=== PATIENT | female | born 1965 | race African-American/Black ===

== ENCOUNTER 2020-03-19 12:05 | Outpatient (REF) | payer MEDICARE, MEDICAID, SELFPAY ==
[2020-03-19 13:25] LABS: MANUAL DIFF FLAG NO
[2020-03-19 13:32] LABS: Hematocrit 38.3 % (37-47); Hemoglobin 12.6 g/dl (12.0-16.0); Imm Gran Abs Auto 0.01 X10*3/uL (0.00-0.03); Imm Gran Pct Auto 0.3 % (0.0-0.4); Lymphocytes Percent Auto 25.4 % (20-40); Mean Corpuscular HGB Conc 32.9 g/dl (31.0-35.0); Mean Corpuscular Hemoglobin 29.8 pg (27.0-33.0); Mean Corpuscular Volume 90.5 fL (80-98); Mean Platelet Volume 9.9 fL (9.4-12.3); Monocytes Absolute Auto 0.1 X10*3/uL (0.1-1.2); Monocytes Percent Auto 3.5 % (2-11); Neutrophils Absolute Auto 2.8 X10*3/uL (2.0-8.3); Neutrophils Percent Auto 70.8 % (45-73); Platelet Count 207 X10*3/uL (160-400); Red Blood Count 4.23 X10*6/uL (4.20-5.50); Red Cell Distribution Width 17.1 % (11.0-16.0)
[2020-03-19 13:57] LABS: Alanine Aminotransferase 11 U/L (0-31); Alkaline Phosphatase 73 U/L (39-117); Anion Gap 14 (12-20); Aspartate Amino Transferase 16 U/L (5-31); Bilirubin Total 0.5 mg/dL (0.0-1.0); Blood Urea Nitrogen 7 mg/dL (9-16); C Reactive Protein 2.45 mg/dL (< or = 0.50); Calcium 9.1 mg/dL (8.4-10.2); Carbon Dioxide 22 mmol/L (22-29); Chloride 108 mmol/L (96-108); Estimated Glomerular Filt Rate 59; Glucose Random 96 mg/dL (60-115); Potassium 4.5 mmol/l (3.3-5.1); Sodium 139 mmol/L (135-145); Total Protein 7.8 g/dL (6.5-8.0)
[2020-03-19 14:00] LABS: Glucose Urine UA NEG (NEG); Leukocyte Esterase Urine NEG (NEG); Nitrite Urine NEG (NEG); Specific Gravity - Urine 1.025 (1.005-1.025); Urine Blood NEG (NEG); Urine Ketones NEG (NEG); Urine Protein NEG (NEG-TRACE)
[2020-03-19 14:02] LABS: Appearance Urine HAZY; Color Urine YELLOW
[2020-03-19 14:16] LABS: RBC Urine 0 /HPF (0); Squamous Epithelial Cell Urine 2+ /LPF; WBC Urine 0 /HPF (0-4)
[2020-03-19 14:25] LABS: Erythrocyte Sedimentation Rate 43 MM/HR (0-20)
[2020-03-20 13:57] LABS: Anti DNA DS Antibody 83 IU/mL
[2020-03-22 15:02] LABS: Complement C3 112 mg/dL (83-193)
== END 2020-03-19 12:06 | disposition home or self-care (01) ==
LOC: HO.LAB 12:05
PROVIDERS: PCP Family Medicine; Referring Provider Family Medicine; Visit Provider Student in an Organized Health Care Education/Training Program
DX: M32.9 Systemic lupus erythematosus, unspecified (principal); J45.909 Unspecified asthma, uncomplicated; G47.33 Obstructive sleep apnea (adult) (pediatric); F17.200 Nicotine dependence, unspecified, uncomplicated
CPT/HCPCS: 36415; 80053; 81001; 85025; 85652; 86140; 86160; 86225; 99213

== ENCOUNTER → 2020-06-18 13:00 | Outpatient (BNVA) | payer MEDICARE, MEDICAID, SELFPAY | PROVIDERS: PCP Family Medicine; Visit Provider Student in an Organized Health Care Education/Training Program | DX: M32.8 Other forms of systemic lupus erythematosus (principal) | CPT/HCPCS: Q3014 ==

== ENCOUNTER → 2020-06-28 09:57 | Outpatient (BNVA) | payer MEDICARE, MEDICAID, SELFPAY | PROVIDERS: PCP Family Medicine; Visit Provider Internal Medicine | DX: J44.9 Chronic obstructive pulmonary disease, unspecified (principal); F17.200 Nicotine dependence, unspecified, uncomplicated | CPT/HCPCS: 99212 ==

== ENCOUNTER → 2020-06-29 10:34 | Outpatient (BNVA) | payer MEDICARE, MEDICAID, SELFPAY | PROVIDERS: PCP Family Medicine; Visit Provider Nurse Practitioner Family | DX: G47.33 Obstructive sleep apnea (adult) (pediatric) (principal) | CPT/HCPCS: Q3014 ==

== ENCOUNTER 2020-09-14 10:58 | Outpatient (REF) | payer MEDICARE, MEDICAID, SELFPAY ==
--- NOTE | ~2020-09-14 | XR_ITS ---
EXAMINATION: XR BILATERAL HANDS CLINICAL INFORMATION: Shortness of breath. COMPARISON: None. TECHNIQUE: 3 views each hand. FINDINGS: Left Hand: There is a geographic sclerotic marginated lesion 1st metatarsal head, question infarct. No additional lesions seen. There is mild joint space narrowing involving the PIP, DIP and MCP joints. Minimal periapical spurring PIP joint 1st digit. Right Hand: There is mild loss of PIP, DIP and MCP joint space. No bony erosive changes. There is mild periarticular spurring PIP joint 1st digit. XR/XR hand RT min 3V IMPRESSION: Loss of PIP, DIP and MCP joint space. There is mild periarticular spurring PIP joint first digit both hands. There is a small lesion with sclerotic margins along the 2nd metatarsal head left hand. Question chronic infarct.
--- NOTE | ~2020-09-14 | XR_ITS ---
EXAMINATION: XR BILATERAL HANDS CLINICAL INFORMATION: Shortness of breath. COMPARISON: None. TECHNIQUE: 3 views each hand. FINDINGS: Left Hand: There is a geographic sclerotic marginated lesion 1st metatarsal head, question infarct. No additional lesions seen. There is mild joint space narrowing involving the PIP, DIP and MCP joints. Minimal periapical spurring PIP joint 1st digit. Right Hand: There is mild loss of PIP, DIP and MCP joint space. No bony erosive changes. There is mild periarticular spurring PIP joint 1st digit. XR/XR hand LT min 3V IMPRESSION: Loss of PIP, DIP and MCP joint space. There is mild periarticular spurring PIP joint first digit both hands. There is a small lesion with sclerotic margins along the 2nd metatarsal head left hand. Question chronic infarct.
[2020-09-14 12:13] LABS: Glucose Urine UA NEG (NEG); Leukocyte Esterase Urine NEG (NEG); Nitrite Urine NEG (NEG); Specific Gravity - Urine 1.025 (1.005-1.025); Urine Blood TRACE (NEG); Urine Ketones NEG (NEG); Urine Protein NEG (NEG-TRACE)
[2020-09-14 12:14] LABS: Appearance Urine CLEAR; Color Urine YELLOW
[2020-09-14 12:17] LABS: MANUAL DIFF FLAG NO
[2020-09-14 12:24] LABS: Basophils Percent Auto 0.2 % (0-2); Eosinophils Percent Auto 0.2 % (0-4); Hematocrit 36.8 % (37-47); Hemoglobin 11.9 g/dl (12.0-16.0); Imm Gran Abs Auto 0.01 X10*3/uL (0.00-0.03); Imm Gran Pct Auto 0.2 % (0.0-0.4); Lymphocytes Absolute Auto 1.6 X10*3/uL (1.2-4.9); Mean Corpuscular HGB Conc 32.3 g/dl (31.0-35.0); Mean Corpuscular Hemoglobin 29.1 pg (27.0-33.0); Mean Platelet Volume 9.8 fL (9.4-12.3); Monocytes Absolute Auto 0.2 X10*3/uL (0.1-1.2); Neutrophils Absolute Auto 2.2 X10*3/uL (2.0-8.3); Neutrophils Percent Auto 54.4 % (45-73); Platelet Count 202 X10*3/uL (160-400); Red Blood Count 4.09 X10*6/uL (4.20-5.50); Red Cell Distribution Width 17.9 % (11.0-16.0)
[2020-09-14 12:26] LABS: RBC Urine 0-2 /HPF (0); Squamous Epithelial Cell Urine 1+ /LPF; WBC Urine 0 /HPF (0-4)
[2020-09-14 12:49] LABS: Alanine Aminotransferase 10 U/L (0-31); Albumin Level 3.9 g/dL (3.5-5.0); Alkaline Phosphatase 68 U/L (39-117); Anion Gap 13 (12-20); Aspartate Amino Transferase 15 U/L (5-31); Bilirubin Total 0.6 mg/dL (0.0-1.0); Blood Urea Nitrogen 10 mg/dL (9-16); C Reactive Protein 2.55 mg/dL (< or = 0.50); Calcium 9.3 mg/dL (8.4-10.2); Carbon Dioxide 24 mmol/L (22-29); Chloride 111 mmol/L (96-108); Estimated Glomerular Filt Rate 49; Glucose Random 86 mg/dL (60-115); Potassium 4.2 mmol/L (3.3-5.1); Sodium 144 mmol/L (135-145); Total Protein 7.7 g/dL (6.5-8.0)
[2020-09-14 13:06] LABS: Erythrocyte Sedimentation Rate 34 MM/HR (0-20)
[2020-09-15 14:22] LABS: Anti DNA DS Antibody 105 IU/mL
[2020-09-15 15:11] LABS: Complement C3 99 mg/dL (83-193)
== END 2020-09-14 10:59 | disposition home or self-care (01) ==
LOC: HO.LAB 10:58
PROVIDERS: PCP Family Medicine; Visit Provider Student in an Organized Health Care Education/Training Program
DX: M32.8 Other forms of systemic lupus erythematosus (principal); Z79.899 Other long term (current) drug therapy
CPT/HCPCS: 36415; 73130; 80053; 81001; 85025; 85652; 86140; 86160; 86225; 99212

== ENCOUNTER 2020-11-12 06:35 | Outpatient (REF) | payer MEDICARE, MEDICAID, SELFPAY ==
[2020-11-12 07:45] LABS: Hemoglobin 12.7 g/dl (12.0-16.0); Mean Corpuscular HGB Conc 32.6 g/dl (31.0-35.0); Mean Corpuscular Hemoglobin 29.8 pg (27.0-33.0); Mean Corpuscular Volume 91.5 fL (80-98); Mean Platelet Volume 9.9 fL (9.4-12.3); Platelet Count 194 X10*3/uL (160-400); Red Blood Count 4.26 X10*6/uL (4.20-5.50); Red Cell Distribution Width 17.8 % (11.0-16.0)
[2020-11-12 08:07] LABS: Alanine Aminotransferase 7 U/L (0-31); Albumin Level 4.2 g/dL (3.5-5.0); Alkaline Phosphatase 73 U/L (39-117); Anion Gap 13 (12-20); Aspartate Amino Transferase 19 U/L (5-31); Bilirubin Total 0.7 mg/dL (0.0-1.0); Blood Urea Nitrogen 8 mg/dL (9-16); Calcium 9.1 mg/dL (8.4-10.2); Carbon Dioxide 24 mmol/L (22-29); Chloride 109 mmol/L (96-108); Cholesterol 201 mg/dL; Estimated Glomerular Filt Rate > 60; Glucose Random 84 mg/dL (60-115); HDL Cholesterol 37 mg/dL; LDL Cholesterol Calculated 140 mg/dl; Potassium 4.3 mmol/L (3.3-5.1); Sodium 142 mmol/L (135-145); Total Protein 8.2 g/dL (6.5-8.0); Triglycerides 121 mg/dL
[2020-11-12 08:29] LABS: Ferritin 91 ng/mL (10-250); Thyroid Stimulating Hormone 1.76 uIU/mL (0.32-4.0); Vitamin D 25-OH Total 12.7 ng/mL (>30)
[2020-11-12 08:50] LABS: Glucose Urine UA NEG (NEG); Leukocyte Esterase Urine NEG (NEG); Nitrite Urine NEG (NEG); Specific Gravity - Urine >= 1.030 (1.005-1.025); Urine Blood NEG (NEG); Urine Ketones NEG (NEG); Urine Protein NEG (NEG-TRACE)
[2020-11-12 08:52] LABS: Appearance Urine CLEAR; Color Urine STRAW
[2020-11-12 08:54] LABS: Vitamin B12 908 pg/mL (200-900)
[2020-11-12 09:09] LABS: RBC Urine 0 /HPF (0); WBC Urine 0-2 /HPF (0-4)
[2020-11-12 09:10] LABS: Bacteria Urine 1+ /LPF; Mucus Urine 1+ /LPF; Squamous Epithelial Cell Urine 2+ /LPF
== END 2020-11-12 06:36 | disposition home or self-care (01) ==
LOC: HO.LAB 06:35
PROVIDERS: Absent Provider Student in an Organized Health Care Education/Training Program; PCP Family Medicine; Visit Provider Family Medicine
DX: E78.5 Hyperlipidemia, unspecified (principal); J44.9 Chronic obstructive pulmonary disease, unspecified; M32.9 Systemic lupus erythematosus, unspecified; I10 Essential (primary) hypertension; F17.200 Nicotine dependence, unspecified, uncomplicated
CPT/HCPCS: 36415; 80053; 80061; 81001; 82306; 82607; 82728; 84443; 85027

== ENCOUNTER → 2020-12-16 09:49 | Outpatient (BNVA) | payer MEDICARE, MEDICAID, SELFPAY | PROVIDERS: PCP Family Medicine; Visit Provider Student in an Organized Health Care Education/Training Program | DX: M32.8 Other forms of systemic lupus erythematosus (principal) | CPT/HCPCS: 99212 ==

== ENCOUNTER → 2020-12-28 10:25 | Outpatient (BNVA) | payer MEDICARE, MEDICAID, SELFPAY | PROVIDERS: PCP Family Medicine; Visit Provider Nurse Practitioner Family | CPT/HCPCS: Q3014 ==

== ENCOUNTER 2020-12-29 06:13 | Outpatient (REF) | payer MEDICARE, MEDICAID, SELFPAY ==
[2020-12-29 07:02] LABS: MANUAL DIFF FLAG NO
[2020-12-29 07:05] LABS: Eosinophils Percent Auto 1.1 % (0-4); Hematocrit 36.7 % (37-47); Hemoglobin 11.9 g/dl (12.0-16.0); Imm Gran Abs Auto 0.02 X10*3/uL (0.00-0.03); Imm Gran Pct Auto 0.6 % (0.0-0.4); Lymphocytes Absolute Auto 1.1 X10*3/uL (1.2-4.9); Lymphocytes Percent Auto 29.5 % (20-40); Mean Corpuscular HGB Conc 32.4 g/dl (31.0-35.0); Mean Corpuscular Volume 89.3 fL (80-98); Mean Platelet Volume 9.6 fL (9.4-12.3); Monocytes Absolute Auto 0.2 X10*3/uL (0.1-1.2); Monocytes Percent Auto 5.6 % (2-11); Neutrophils Absolute Auto 2.3 X10*3/uL (2.0-8.3); Neutrophils Percent Auto 63.2 % (45-73); Platelet Count 215 X10*3/uL (160-400); Red Blood Count 4.11 X10*6/uL (4.20-5.50); Red Cell Distribution Width 17.1 % (11.0-16.0); White Blood Count 3.6 X10*3/uL (4.8-10.8)
[2020-12-29 07:43] LABS: Alanine Aminotransferase 7 U/L (0-31); Alkaline Phosphatase 73 U/L (39-117); Anion Gap 14 (12-20); Aspartate Amino Transferase 19 U/L (5-31); Bilirubin Total 0.4 mg/dL (0.0-1.0); Blood Urea Nitrogen 13 mg/dL (9-16); C Reactive Protein 2.93 mg/dL (< or = 0.50); Calcium 9.5 mg/dL (8.4-10.2); Carbon Dioxide 22 mmol/L (22-29); Chloride 108 mmol/L (96-108); Estimated Glomerular Filt Rate 54; Glucose Random 82 mg/dL (60-115); Potassium 4.4 mmol/L (3.3-5.1); Sodium 140 mmol/L (135-145); Total Protein 8.1 g/dL (6.5-8.0)
[2020-12-29 07:57] LABS: Erythrocyte Sedimentation Rate 51 MM/HR (0-20)
[2020-12-29 08:32] LABS: Glucose Urine UA NEG (NEG); Leukocyte Esterase Urine NEG (NEG); Nitrite Urine NEG (NEG); Specific Gravity - Urine 1.025 (1.005-1.025); Urine Blood NEG (NEG); Urine Ketones NEG (NEG); Urine Protein NEG (NEG-TRACE)
[2020-12-29 08:35] LABS: Appearance Urine CLEAR; Color Urine YELLOW
[2020-12-29 08:45] LABS: Bacteria Urine TRACE /LPF; RBC Urine 0 /HPF (0); Renal Epithelial Cells Urine TRACE /LPF; Squamous Epithelial Cell Urine TRACE /LPF
[2020-12-30 11:46] LABS: Complement C3 80 mg/dL (83-193)
[2020-12-31 14:06] LABS: Anti DNA DS Antibody 111 IU/mL
== END 2020-12-29 06:14 | disposition home or self-care (01) ==
LOC: HO.LAB 06:13
PROVIDERS: PCP Family Medicine; Visit Provider Student in an Organized Health Care Education/Training Program
DX: M32.8 Other forms of systemic lupus erythematosus (principal)
CPT/HCPCS: 36415; 80053; 81001; 85025; 85652; 86140; 86160; 86225

== ENCOUNTER → 2021-04-19 09:24 | Outpatient (BNVA) | payer MEDICARE, MEDICAID, SELFPAY | PROVIDERS: PCP Family Medicine; Referring Provider Family Medicine; Visit Provider Nurse Practitioner Family | CPT/HCPCS: Q3014 ==

== ENCOUNTER 2021-09-25 08:43 | Emergency (ER) | payer MEDICARE, MEDICAID, SELFPAY ==
--- NOTE | ~2021-09-25 | XR_ITS ---
EXAMINATION: XR CHEST CLINICAL INFORMATION: Cough COMPARISON: Previous chest x-ray most recent August 2019 TECHNIQUE: Frontal view of the chest was obtained. FINDINGS: The cardiac silhouette is enlarged but stable. Hilar and mediastinal contours are unremarkable. The lungs are clear. There is blunting at the right lateral costophrenic angle questionable for a small right pleural effusion. There is no left pleural effusion. There is no pneumothorax. XR/XR chest 1V IMPRESSION: Stable enlargement of the cardiac silhouette. Question small right pleural effusion.
[2021-09-25 08:51] VITALS: BP 136/74; PULSE 73; RESP 19; TEMP 36.4; O2SAT 95; BMI 31.6
--- NOTE | 2021-09-25 08:54 | ECG_ITS ---
Test Reason : sob Blood Pressure : / mmHG Vent. Rate : 055 BPM Atrial Rate : 055 BPM P-R Int : 120 ms QRS Dur : 080 ms QT Int : 428 ms P-R-T Axes : 000 039 101 degrees QTc Int : 409 ms Sinus bradycardia T wave abnormality, consider anterior ischemia Nonspecific ST and T wave abnormality Abnormal ECG When compared with ECG of 22-JUN-2019 21:10, Vent. rate has decreased BY 73 BPM Nonspecific T wave abnormality, worse in Inferior leads T wave inversion now evident in Anterior leads Referred By: Gonzalo Welch Electronically Signed By:ALEXYS MARTINEZ
--- NOTE | 2021-09-25 08:57 | ED.SOB ---
HPI - SOB/Dyspnea General Chief Complaint: Dyspnea Stated Complaint: DIFF BREATHING LOW 80'S ON RA PER EMS Time Seen by Provider: 09/25/21 08:54 Source: patient Mode of arrival: ambulatory Limitations: no limitations History of Present Illness HPI Narrative: This is a 56 years old female presented to the ED with a chief complaint of shortness of breath, she has a history of COPD not on oxygen, she is a chronic smoker, she has also has a history of SLE. She denies any fever chills she states that she has been short of breath for about a week. MD elicited complaint: shortness of breath Pertinent past history: COPD Onset (ago): week(s) (1) Timing: constant Severity: moderate Exacerbating factors: nothing Relieving factors: nothing Known history of: COPD Associated symptoms: denies other symptoms Related Data Home Medications Medication Instructions Recorded Confirmed albuterol sulfate 90 mcg/actuation 2 puff INHALATION Q4-6H PRN 03/19/20 04/19/21 aerosol inhaler aspirin 81 mg tablet,delayed 81 mg PO DAILY 03/19/20 04/19/21 release (Adult Low Dose Aspirin) fluticasone furoate 200 1 inh INHALATION DAILY 03/19/20 04/19/21 mcg-vilanterol 25 mcg/dose inhalation powder (Breo Ellipta) hydroxychloroquine 200 mg tablet 200 mg PO BID 03/19/20 04/19/21 (Plaquenil) ibuprofen 800 mg tablet 800 mg PO TID PRN 03/19/20 04/19/21 oxycodone-acetaminophen 5 mg-325 1 tab PO DAILY PRN tab 03/19/20 04/19/21 mg tablet (Percocet) Previous Rx's Medication Instructions Recorded prednisone 5 mg tablet 5 mg PO DAILY PRN #90 tab 12/16/20 gabapentin 100 mg capsule See Rx Instructions PO BEDTIME #90 04/19/21 cap Allergies Allergy/AdvReac Type Severity Reaction Status Date / Time No Known Allergies Allergy Verified 12/28/20 10:26 Review of Systems Review of Systems: Yes all other systems are reviewed and are negative Constitutional: Constitutional: Denies fever(s) Cardiovascular: Cardiovascular: Reports no additional cardiovascular complaints Respiratory: Respiratory: Reports no additional respiratory complaints Gastrointestinal: Gastrointestinal: Denies diarrhea, Denies nausea and Denies vomiting Neurologic: Reports Abnormal speech present [facility] Past Medical History Medical History Asthma COPD (chronic obstructive pulmonary disease) Obstructive sleep apnea Smoker Systemic lupus erythematosus Family History Family History Mother Breast cancer Social History Social History Household Members: Significant Other Housing: Apartment Alcohol intake: current Alcohol intake frequency: a few times a month Alcohol type: hard liquor Patient Tobacco Use Status: Current everyday Tobacco user Cigarettes Per Day: 6 Years Smoked: since age 15 Use of substances other than those prescribed or required for medical reasons: Unknown Advance Directives: No Advance Directives Information Provided: No Current occupational status: disabled Physical Exam Vital Signs: Vital Signs: Last Vital Signs Temp 97.6 F 09/25/21 08:51 Pulse 57 09/25/21 10:01 Resp 20 09/25/21 10:01 BP 136/74 09/25/21 08:51 Pulse Ox 95 09/25/21 08:51 BMI result Body Mass Index 31.6 Const: General: cooperative Orientation/consciousness: patient oriented x3 HEENT: Head: Yes normal to inspection Face and sinus: Yes normal facial exam Mouth: Normal oral and palatal mucosa present Neck: Neck: Yes normal visual inspection Chest: Chest palpation & inspection: normal inspection of the chest Resp: Auscultation: rhonchi Cardio: Jugular venous distension: no JVD Rate: regular rate Rhythm: regular rhythm GI: Inspection: Yes normal to inspection Palpation (GI): Soft to palpation, not firm, nontender and no guarding Skin: General skin exam: no rashes or lesions noted, elasticity normal and turgor normal Rashes: no rashes Neuro: General: patient oriented x3 Cranial nerves: Yes CN's II-XII intact bilaterally Speech: Abnormal speech present Course Reevaluation(s) Reevaluation #1: pt eloped MDM - SOB/Dyspnea Lab Data Result diagrams: 09/25/21 09:38 09/25/21 09:38 Labs: Lab Results 09/25/21 09/25/21 09/25/21 Range/Units 09:38 09:38 09:38 WBC 5.2 (4.8-10.8) X10*3/uL RBC 4.30 (4.20-5.50) X10*6/uL Hgb 12.4 (12.0-16.0) g/dl Hct 38.3 (37.0-47.0) % MCV 89.1 (80.0-98.0) fL MCH 28.8 (27.0-33.0) pg MCHC 32.4 (31.0-35.0) g/dl RDW 18.1 H (11.0-16.0) % Plt Count 192 (160-400) X10*3/uL MPV 9.6 (9.4-12.3) fL Immature Gran % (Auto) 0.2 (0.0-0.4) % Neut % (Auto) 77.8 H (45-73) % Lymph % (Auto) 19.3 L (20-40) % [place] % (Auto) 2.5 (2-11) % Eos % (Auto) 0.2 (0-4) % Baso % (Auto) 0.0 (0-2) % Lymph # (Auto) 1.0 L (1.2-4.9) X10*3/uL [place] # (Auto) 0.1 (0.1-1.2) X10*3/uL Eos # (Auto) 0.0 (0.0-0.4) X10*3/uL Baso # (Auto) 0.0 (0.0-0.2) X10*3/uL Abs Immat Gran (auto) 0.01 (0.00-0.03) X10*3/uL Absolute Neuts (auto) 4.0 (2.0-8.3) x10*3/uL Absolute Nucleated RBC 0.000 (0.0-0.012) X10*3/uL Nucleated RBC % (auto) 0.0 (0.0-0.2) /100WBC Sodium 139 (135-145) mmol/L Potassium 4.5 (3.3-5.1) mmol/L Chloride 109 H (96-108) mmol/L Carbon Dioxide 23 (22-29) mmol/L Anion Gap 12 (12-20) BUN 11 (9-16) mg/dL Creatinine 0.79 (0.5-1.4) mg/dL Estim Creat Clear Calc 78.0 Estimated GFR > 60 Random Glucose 96 (60-115) mg/dL Calcium 8.8 D (8.4-10.2) mg/dL Total Bilirubin 0.6 (0.0-1.0) mg/dL AST 21 (5-31) U/L ALT 15 (0-31) U/L Alkaline Phosphatase 62 (39-117) U/L Troponin I High Sens < 3.5 (<3.5-17.0) ng/L B-Natriuretic Peptide 13 (<100) pg/mL Total Protein 7.8 (6.5-8.0) g/dL Albumin 3.7 (3.5-5.0) g/dL Influenza Type A (PCR) (Negative) Influenza Type B (PCR) (Negative) RSV RNA Qual (PCR) (Negative) SARS-CoV-2 RNA (RT-PCR) (Negative) 09/25/21 Range/Units 10:45 WBC (4.8-10.8) X10*3/uL RBC (4.20-5.50) X10*6/uL Hgb (12.0-16.0) g/dl Hct (37.0-47.0) % MCV (80.0-98.0) fL MCH (27.0-33.0) pg MCHC (31.0-35.0) g/dl RDW (11.0-16.0) % Plt Count (160-400) X10*3/uL MPV (9.4-12.3) fL Immature Gran % (Auto) (0.0-0.4) % Neut % (Auto) (45-73) % Lymph % (Auto) (20-40) % [place] % (Auto) (2-11) % Eos % (Auto) (0-4) % Baso % (Auto) (0-2) % Lymph # (Auto) (1.2-4.9) X10*3/uL [place] # (Auto) (0.1-1.2) X10*3/uL Eos # (Auto) (0.0-0.4) X10*3/uL Baso # (Auto) (0.0-0.2) X10*3/uL Abs Immat Gran (auto) (0.00-0.03) X10*3/uL Absolute Neuts (auto) (2.0-8.3) x10*3/uL Absolute Nucleated RBC (0.0-0.012) X10*3/uL Nucleated RBC % (auto) (0.0-0.2) /100WBC Sodium (135-145) mmol/L Potassium (3.3-5.1) mmol/L Chloride (96-108) mmol/L Carbon Dioxide (22-29) mmol/L Anion Gap (12-20) BUN (9-16) mg/dL Creatinine (0.5-1.4) mg/dL Estim Creat Clear Calc Estimated GFR Random Glucose (60-115) mg/dL Calcium (8.4-10.2) mg/dL Total Bilirubin (0.0-1.0) mg/dL AST (5-31) U/L ALT (0-31) U/L Alkaline Phosphatase (39-117) U/L Troponin I High Sens (<3.5-17.0) ng/L B-Natriuretic Peptide (<100) pg/mL Total Protein (6.5-8.0) g/dL Albumin (3.5-5.0) g/dL Influenza Type A (PCR) NEGATIVE (Negative) Influenza Type B (PCR) NEGATIVE (Negative) RSV RNA Qual (PCR) POSITIVE A (Negative) SARS-CoV-2 RNA (RT-PCR) NEGATIVE (Negative) Discharge Plan Discharge Clinical Impression: Shortness of breath Patient Disposition: Elopement Prescriptions: No Action hydroxychloroquine [Plaquenil] 200 mg tablet 200 mg PO BID 0RF oxycodone-acetaminophen [Percocet] 5-325 mg tablet 1 tab PO DAILY PRN0RF albuterol sulfate 90 mcg/actuation HFA aerosol inhaler 2 puff inhalation Q4-6H PRN0RF ibuprofen 800 mg tablet 800 mg PO TID PRN0RF aspirin [Adult Low Dose Aspirin] 81 mg tablet,delayed release (DR/EC) 81 mg PO DAILY 0RF Breo Ellipta 200-25 mcg/dose blister with device 1 inh inhalation DAILY 0RF prednisone 5 mg tablet 5 mg PO DAILY PRN (Reason: flare) Qty: 90 1RF gabapentin 100 mg capsule See Rx Instructions PO BEDTIME Qty: 90 5RF Rx Instructions: 1-3 caps PO bedtime; Discharge Date/Time: 09/25/21 12:33
[2021-09-25] MEDS: methylPREDNISolone Sod Succ 125 MG/2 ML VIAL IVPUSH (09:39)
[2021-09-25 09:47] LABS: MANUAL DIFF FLAG NO
[2021-09-25 09:48] LABS: Eosinophils Percent Auto 0.2 % (0-4); Hematocrit 38.3 % (37.0-47.0); Hemoglobin 12.4 g/dl (12.0-16.0); Imm Gran Abs Auto 0.01 X10*3/uL (0.00-0.03); Imm Gran Pct Auto 0.2 % (0.0-0.4); Lymphocytes Percent Auto 19.3 % (20-40); Mean Corpuscular HGB Conc 32.4 g/dl (31.0-35.0); Mean Corpuscular Hemoglobin 28.8 pg (27.0-33.0); Mean Corpuscular Volume 89.1 fL (80.0-98.0); Mean Platelet Volume 9.6 fL (9.4-12.3); Monocytes Absolute Auto 0.1 X10*3/uL (0.1-1.2); Monocytes Percent Auto 2.5 % (2-11); Neutrophils Percent Auto 77.8 % (45-73); Platelet Count 192 X10*3/uL (160-400); Red Cell Distribution Width 18.1 % (11.0-16.0); White Blood Count 5.2 X10*3/uL (4.8-10.8)
[2021-09-25 09:57] VITALS: PULSE 62
[2021-09-25 10:01] VITALS: PULSE 57; RESP 20; O2SAT 94
[2021-09-25] MEDS: Albuterol Sulfate (0.083%) 2.5 MG/3 ML VIAL.NEB 5 MG INHALE (10:01)
[2021-09-25 10:10] LABS: B Type Natriuretic Peptide 13 pg/mL (<100); Troponin-I High Sensitivity < 3.5 ng/L (<3.5-17.0)
[2021-09-25 10:12] LABS: Alanine Aminotransferase 15 U/L (0-31); Albumin Level 3.7 g/dL (3.5-5.0); Alkaline Phosphatase 62 U/L (39-117); Anion Gap 12 (12-20); Aspartate Amino Transferase 21 U/L (5-31); Bilirubin Total 0.6 mg/dL (0.0-1.0); Blood Urea Nitrogen 11 mg/dL (9-16); Calcium 8.8 mg/dL (8.4-10.2); Carbon Dioxide 23 mmol/L (22-29); Chloride 109 mmol/L (96-108); Estimated Glomerular Filt Rate > 60; Glucose Random 96 mg/dL (60-115); Potassium 4.5 mmol/L (3.3-5.1); Sodium 139 mmol/L (135-145); Total Protein 7.8 g/dL (6.5-8.0)
--- NOTE | 2021-09-25 10:26 | PC.NURSE ---
Pt is alert and oriented. Reports SOB x 1-2 days ith occasional dry couth, at times productive. Breathing easy. 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 RA sat 95%. IV etsblished and labs sent, medicaed as charted
[2021-09-25 11:54] LABS: Influenza A PCR NEGATIVE (Negative); Influenza B PCR NEGATIVE (Negative); Resp Syncy Virus RNA Qual PCR POSITIVE (Negative); SARS COV2 PCR INHOUSE NEGATIVE (Negative)
--- NOTE | 2021-09-25 12:32 | PC.NURSE ---
Ppt demanding to remove IV and requesting to leave, declines to await md re evaluation.
== END 2021-09-25 12:33 | disposition left against medical advice (07) ==
LOC: HO.ED 09:09
PROVIDERS: Emergency Provider Emergency Medicine; PCP Family Medicine
DX: R06.02 Shortness of breath (principal); R05.9 Cough, unspecified; Z79.899 Other long term (current) drug therapy; F17.210 Nicotine dependence, cigarettes, uncomplicated; Z71.6 Tobacco abuse counseling; Z20.822 Contact with and (suspected) exposure to COVID-19
CPT/HCPCS: 0241U; 36415; 71045; 80053; 83880; 84484; 85025; 93005; 94640; 96374; 99284; J2930

== ENCOUNTER 2021-10-21 11:05 | Outpatient (REF) | payer MEDICARE, MEDICAID, SELFPAY ==
--- NOTE | ~2021-10-21 | MM_ITS ---
EXAMINATION: MM SCREENING DIGITAL BREAST TOMOSYNTHESIS, BILATERAL CLINICAL INFORMATION: Screening. Asymptomatic. The lifetime risk of breast cancer based on the Tyrer-Cuzick Model is 12%. COMPARISON: Mammography: 12/23/2019, 10/30/2017, 10/12/2016 TECHNIQUE: Digital breast tomosynthesis is performed in both the craniocaudal and mediolateral oblique views along with computer-aided detection (CAD). Synthesized 2D images are generated from the tomosynthesis. FINDINGS: There are scattered areas of fibroglandular density (ACR BI-RADS breast composition Category b). Parenchymal pattern is similar to prior exams. There is no significant mass or architectural abnormality or developing density. There is a chronic circumscribed mass anterior 9:00 right breast. The bilateral axilla and skin contours are unremarkable. There are scattered bilateral round and rim and dermal calcifications. Right breast has focal punctate calcifications anterior mid 12:00 right breast, increased from prior studies. Patient will be recalled for additional imaging to further characterize. MM/MM tomosynthesis screening BI IMPRESSION: Right: -Grouped punctate calcifications 12:00 right breast. Left: -No mammographic evidence of malignancy. ASSESSMENT: BI-RADS 0: Incomplete - Need Additional Imaging Evaluation RECOMMENDATION: 1. Additional views of the right breast (magnification CC, magnification ML). 2. Radiology department staff will contact the patient for additional imaging. This patient's information was entered into a reminder system with a target due date for their next mammogram.
== END 2021-10-21 11:06 | disposition home or self-care (01) ==
LOC: HO.MAMMO 11:05
PROVIDERS: PCP Family Medicine; Visit Provider Family Medicine
DX: Z12.31 Encounter for screening mammogram for malignant neoplasm of breast (principal)
CPT/HCPCS: 77063; 77067

== ENCOUNTER 2021-11-07 10:54 | Outpatient (REF) | payer MEDICARE, MEDICAID, SELFPAY ==
--- NOTE | ~2021-11-07 | MM_ITS ---
EXAMINATION: MM DIAGNOSTIC DIGITAL MAMMOGRAPHY, RIGHT CLINICAL INFORMATION: Calcifications 12 o'clock position right breast for magnification views. COMPARISON: Mammography: 10/21/2021 and studies dating back to 08/05/2013. TECHNIQUE: Digital mammography is performed in the following views: Spot magnification views in craniocaudal and 90 degree mediolateral views. FINDINGS: There are scattered areas of fibroglandular density (ACR BI-RADS breast composition Category b). There are multiple scattered and grouped calcifications as well as vascular calcifications identified. Within the grouping of calcifications there is a coarse calcification. No layering is noted on 90 degree mediolateral view. Recommend 6 month followup right breast mammography with magnification views. Results are provided to the patient at time of visit by the technologist. MM/MM added views RT IMPRESSION: Benign-appearing calcifications for which 6 month followup study of the right breast is recommended. ASSESSMENT: BI-RADS 3: Probably Benign. RECOMMENDATION: Diagnostic mammography in 6 months. This patient's information was entered into a reminder system with a target due date for their next mammogram.
== END 2021-11-07 10:55 | disposition home or self-care (01) ==
LOC: HO.MAMMO 10:54
PROVIDERS: PCP Family Medicine; Visit Provider Family Medicine
DX: R92.1 Mammographic calcification found on diagnostic imaging of breast (principal)
CPT/HCPCS: 77065

== ENCOUNTER 2022-05-19 13:10 | Outpatient (REF) | payer MEDICARE, MEDICAID, SELFPAY ==
--- NOTE | ~2022-05-19 | MM_ITS ---
EXAMINATION: MM DIAGNOSTIC DIGITAL BREAST TOMOSYNTHESIS, RIGHT CLINICAL INFORMATION: Six-month follow-up right breast calcifications. COMPARISON: Mammography: 11/07/2021 and studies dating back to 10/07/2015. TECHNIQUE: Digital breast tomosynthesis is performed in both the craniocaudal and mediolateral oblique views along with computer-aided detection (CAD). Synthesized 2D images are generated from the tomosynthesis. Additional spot magnification views of the right breast in 90 degree mediolateral and craniocaudal views performed. FINDINGS: There are scattered areas of fibroglandular density (ACR BI-RADS breast composition Category b). The density containing calcifications about the superior aspect of the right breast does not show any significant change from previous study of 11/07/2021 and were present to some degree in study of 12/23/2019. Recommend 6 month follow-up bilateral mammography with magnification views of the right breast. Results are provided to the patient at time of visit by the technologist. MM/MM tomosynthesis diagnostic RT IMPRESSION: There are no significant changes from prior study. ASSESSMENT: BI-RADS 3: Probably Benign. RECOMMENDATION: Diagnostic mammography in 6 months. This patient's information was entered into a reminder system with a target due date for their next mammogram.
== END 2022-05-19 13:11 | disposition home or self-care (01) ==
LOC: HO.MAMMO 13:10
PROVIDERS: PCP Family Medicine; Visit Provider Family Medicine
DX: R92.1 Mammographic calcification found on diagnostic imaging of breast (principal)
CPT/HCPCS: 77061; 77065

== ENCOUNTER 2022-08-13 17:00 | Emergency (ER) | payer MEDICARE, MEDICAID, SELFPAY ==
--- NOTE | ~2022-08-13 | XR_ITS ---
EXAMINATION: XR CHEST CLINICAL INFORMATION: Shortness of breath COMPARISON: 09/25/2021 TECHNIQUE: Frontal view of the chest was obtained. FINDINGS: Mild opacity in left upper lung and left base laterally as well as right base. These could represent subtle areas of airspace disease. No large area of infiltrate. There is no failure. The cardiac silhouette is within normal limits. Mild blunting of the right lateral costophrenic angles similar to previous. XR/XR chest 1V IMPRESSION: Some mild patchy opacities may represent small areas of infiltrate or atelectasis. No failure or effusion.
[2022-08-13 17:06] VITALS: BP 138/78; BP 145/77; PULSE 69; PULSE 78; RESP 16; TEMP 36.8; O2SAT 98; BMI 24.2
--- NOTE | 2022-08-13 17:08 | PC.NURSE ---
57 y/o F with hx of COPD BIBA from home with cough and SOB x8 days. pt is aox3, VSS at this time, satting 98% on RA. pt states she was seen about a week ago and given home prednisone, pt states she has run out of the med and would like more....pt on monitor, awaiting provider
[2022-08-13 17:27] VITALS: BP 127/82; PULSE 85; RESP 18; TEMP 36.6; O2SAT 96
--- NOTE | 2022-08-13 17:28 | ECG_ITS ---
Test Reason : SOB Blood Pressure : / mmHG Vent. Rate : 089 BPM Atrial Rate : 089 BPM P-R Int : 136 ms QRS Dur : 082 ms QT Int : 436 ms P-R-T Axes : 071 038 085 degrees QTc Int : 530 ms Normal sinus rhythm Nonspecific T wave abnormality Abnormal ECG When compared with ECG of 25-SEP-2021 09:13, Vent. rate has increased BY 34 BPM T wave inversion no longer evident in Anterior leads QT has lengthened Referred By: Jordana Green Electronically Signed By:Roger Greenberg
--- NOTE | 2022-08-13 17:29 | ED.GENADULT ---
HPI - General Adult General Chief complaint: Dyspnea Stated complaint: short of breath Time Seen by Provider: 08/13/22 17:19 Source: patient Mode of arrival: ambulatory Limitations: no limitations History of Present Illness HPI narrative: 57-year-old female history of tobacco smoking and COPD came in for having difficulty breathing over the past 3 days, SOB worse with exertion, associated with coughing with clear yellow sputum, patient was prescribed barring her PCP bronchodilator and prednisone patient is not feeling improvement with the treatment, patient had a similar symptoms in the past. , there is no fever, no chills, no CP. Related Data Home Medications Medication Instructions Recorded Confirmed albuterol sulfate 90 mcg/actuation 2 puff inhalation Q4-6H PRN 03/19/20 04/19/21 aerosol inhaler aspirin 81 mg tablet,delayed 81 mg PO DAILY 03/19/20 04/19/21 release (Adult Low Dose Aspirin) fluticasone furoate 200 1 inh inhalation DAILY 03/19/20 04/19/21 mcg-vilanterol 25 mcg/dose inhalation powder (Breo Ellipta) hydroxychloroquine 200 mg tablet 200 mg PO BID 03/19/20 04/19/21 (Plaquenil) ibuprofen 800 mg tablet 800 mg PO TID PRN 03/19/20 04/19/21 oxycodone-acetaminophen 5 mg-325 1 tab PO DAILY PRN 03/19/20 04/19/21 mg tablet (Percocet) Previous Rx's Medication Instructions Recorded prednisone 5 mg tablet 5 mg PO DAILY PRN flare #90 tabs 12/16/20 gabapentin 100 mg capsule See Rx Instructions PO BEDTIME #90 04/19/21 caps albuterol sulfate 90 mcg/actuation 1 inh inhalation QID PRN shortness 08/13/22 aerosol inhaler of breath or wheezing #8.5 grams azithromycin 500 mg tablet 500 mg PO DAILY 7 days #7 tabs 08/13/22 (Zithromax) prednisone 20 mg tablet 20 mg PO BID #10 tabs 08/13/22 Allergies Allergy/AdvReac Type Severity Reaction Status Date / Time No Known Allergies Allergy Verified 08/13/22 17:05 Review of Systems Review of Systems: All other systems are reviewed and are negative Constitutional: Reports as per HPI and Reports no additional constitutional complaints Eyes: Reports as per HPI and Reports no additional eye complaints Reports system reviewed and no additional complaints, except as documented Cardiovascular: Reports as per HPI and Reports no additional cardiovascular complaints Respiratory: Reports as per HPI and Reports no additional respiratory complaints Gastrointestinal: Reports as per HPI and Reports no additional gastrointestinal complaints Genitourinary: Reports no additional female genitourinary complaints Musculoskeletal: Reports no additional musculoskeletal complaints Skin/Breast: Reports system reviewed and no additional complaints, except as docu Psychiatric: Reports no additional psychiatric complaints Endocrine: Reports no additional endocrine complaints Hematologic/Lymphatic: Reports no additional hematologic/lymphatic complaints Allergic/Immunologic: Reports no additional allergic/immunologic complaints Reports system reviewed and no additional complaints, except as documented and Reports Abnormal speech present [facility] Past Medical History Medical History Asthma COPD (chronic obstructive pulmonary disease) Obstructive sleep apnea Smoker Systemic lupus erythematosus Family History Family History Mother Breast cancer Social History Social History Household Members: Significant Other Housing: Apartment Alcohol intake: current Alcohol intake frequency: a few times a month Alcohol type: hard liquor Patient Tobacco Use Status: Current everyday Tobacco user Cigarettes Per Day: 6 Years Smoked: since age 15 Advance Directives: No Advance Directives Information Provided: No Current occupational status: disabled Physical Exam ED Vital Signs: Vital Signs - 24 hr 08/13/22 17:06 08/13/22 17:27 08/13/22 17:47 Temperature 98.2 F 98 F Pulse Rate 78 85 Respiratory Rate 16 18 18 Blood Pressure 145/77 H 127/82 Pulse Oximetry 98 96 Oxygen Delivery Method Room Air Room Air BMI result Body Mass Index 24.2 Vital signs have been reviewed as appeared to be correct. Blood pressure normal. Heart rate normal. Respiration rate normal. Temperature normal. Oxygen saturation normal. Appearance: Alert. Oriented X3. No acute distress. Head: Normal external exam. Normocephalic. Atraumatic. No [place] signs noted. No raccoon eyes noted Eyes: PERRLA. EOMI. Conjunctiva and sclera normal. Eyelids normal. ENT: TM's Normal. Pharynx normal. Uvula midline. Moist mucous membranes. No trismus noted. No drooling noted. No muffled voice noted. Neck: Normal inspection. Neck supple. FROM. No adenopathy. Thyroid Normal. No meningeal signs. No neck mass noted. CVS: Normal heart rate and rhythm. Heart sound normal. No murmurs noted. Pulses normal throughout. Respiratory: No respiratory distress. Painless inspiration. Breath sounds normal. Expiratory wheezing with prolonged expiration and decreased breathing sound bilaterally. Chest nontender. No accessory muscle usage noted or decreased air movement noted. Abdomen: Soft and nontender. Bowel sounds normal in all 4 quadrants. No distention noted. No organomegaly noted. No visible injury noted. Back: No CVA tenderness. Full range of motion noted. Skin: Skin warm and dry. Normal skin color. Normal skin turgor. No rashes/lesions/lacerations noted. Extremities: No lower extremity edema. Extremities exhibit normal range of motion. Extremities nontender. Neuro: Oriented X 3. Cranial nerve exam: II-XII are grossly intact No motor deficit. No sensory deficit. Reflexes normal. Course Course Course Narrative: 57-year-old female in with long history of smoking cigarettes and history of COPD came in with coughing, start the patient on Zithromax, albuterol, and 5 days course of prednisone with follow-up with her PCP. Medications Administered Discontinued Medications Generic Name Dose Route Start Last Admin Trade Name Freq PRN Reason Stop Dose Admin Albuterol Sulfate 10 mg 08/13/22 17:26 08/13/22 17:45 Albuterol Sulfate (0.083%) 2.5 Mg/3 Ml Vial.Neb INHALE 08/13/22 17:27 10 mg ONCE ONE Administration Azithromycin 500 mg 08/13/22 19:10 08/13/22 19:30 Azithromycin 500 Mg Tablet PO 08/13/22 19:11 500 mg ONCE ONE Administration Prednisone 40 mg 08/13/22 17:26 08/13/22 17:35 Prednisone 20 Mg Tablet PO 08/13/22 17:27 40 mg ONCE ONE Administration Medical Decision Making Differential Diagnosis Differential Diagnoses: The differential diagnosis associated with the presentation includes (ACS, CHF, pneumonia, COPD exacerbation, viral bronchitis.) Lab Data MDM Lab Attestation statement: I reviewed the patient's lab results. 08/13/22 17:43 08/13/22 17:43 Labs: Lab Results 03/12/23 03/12/23 03/12/23 Range/Units 17:43 17:43 17:43 WBC 6.4 (4.8-10.8) X10*3/uL RBC 3.87 L (4.20-5.50) X10*6/uL Hgb 10.8 L (12.0-16.0) g/dl Hct 34.2 L (37.0-47.0) % MCV 88.4 (80.0-98.0) fL MCH 27.9 (27.0-33.0) pg MCHC 31.6 (31.0-35.0) g/dl RDW 18.5 H (11.0-16.0) % Plt Count 276 D (160-400) X10*3/uL MPV 9.5 (9.4-12.3) fL Immature Gran % (Auto) 0.9 H (0.0-0.4) % Neut % (Auto) 77.8 H (45-73) % Lymph % (Auto) 18.1 L (20-40) % Gem % (Auto) 3.0 (2-11) % Eos % (Auto) 0.0 (0-4) % Baso % (Auto) 0.2 (0-2) % Lymph # (Auto) 1.2 (1.2-4.9) X10*3/uL Gem # (Auto) 0.2 (0.1-1.2) X10*3/uL Eos # (Auto) 0.0 (0.0-0.4) X10*3/uL Baso # (Auto) 0.0 (0.0-0.2) X10*3/uL Abs Immat Gran (auto) 0.06 H (0.00-0.03) X10*3/uL Absolute Neuts (auto) 4.9 (2.0-8.3) x10*3/uL Absolute Nucleated RBC 0.040 H (0.0-0.012) X10*3/uL Nucleated RBC % (auto) 0.6 H (0.0-0.2) /100WBC Sodium 142 (135-145) mmol/L Potassium 4.3 (3.3-5.1) mmol/L Chloride 112 H (96-108) mmol/L Carbon Dioxide 18 L (22-29) mmol/L Anion Gap 16 (12-20) BUN 16 (9-16) mg/dL Creatinine 0.90 (0.5-1.4) mg/dL Estim Creat Clear Calc 65.3 Estimated GFR > 60 Random Glucose 97 (60-115) mg/dL Calcium 8.7 (8.4-10.2) mg/dL Total Bilirubin 0.7 (0.0-1.0) mg/dL Direct Bilirubin 0.3 (0.0-0.5) mg/dL AST 27 (5-31) U/L ALT 34 H (0-31) U/L Alkaline Phosphatase 96 (39-117) U/L Troponin I High Sens < 3.5 (<3.5-17.0) ng/L Total Protein 7.9 (6.5-8.0) g/dL Albumin 3.6 (3.5-5.0) g/dL Lipase 26 (8-78) U/L Urine Color Urine Appearance Urine pH (5.0-9.0) Ur Specific [place] (1.005-1.025) Urine Protein (Neg-Trace) mg/dL Urine Glucose (UA) (Negative) mg/dL Urine Ketones (Negative) mg/dL Urine Blood (Negative) Urine Nitrite (Negative) Ur Leukocyte Esterase (Negative) Urine RBC (0-2) /HPF Urine WBC (0-5) /HPF Ur Squamous Epith Cells (0-2) /HPF Urine Bacteria (None Seen) Hyaline Casts (0-2) /LPF Influenza Type A (PCR) (Negative) Influenza Type B (PCR) (Negative) RSV RNA Qual (PCR) (Negative) SARS-CoV-2 RNA (RT-PCR) (Negative) 08/13/22 08/13/22 Range/Units 17:43 19:23 WBC (4.8-10.8) X10*3/uL RBC (4.20-5.50) X10*6/uL Hgb (12.0-16.0) g/dl Hct (37.0-47.0) % MCV (80.0-98.0) fL MCH (27.0-33.0) pg MCHC (31.0-35.0) g/dl RDW (11.0-16.0) % Plt Count (160-400) X10*3/uL MPV (9.4-12.3) fL Immature Gran % (Auto) (0.0-0.4) % Neut % (Auto) (45-73) % Lymph % (Auto) (20-40) % Gem % (Auto) (2-11) % Eos % (Auto) (0-4) % Baso % (Auto) (0-2) % Lymph # (Auto) (1.2-4.9) X10*3/uL Gem # (Auto) (0.1-1.2) X10*3/uL Eos # (Auto) (0.0-0.4) X10*3/uL Baso # (Auto) (0.0-0.2) X10*3/uL Abs Immat Gran (auto) (0.00-0.03) X10*3/uL Absolute Neuts (auto) (2.0-8.3) x10*3/uL Absolute Nucleated RBC (0.0-0.012) X10*3/uL Nucleated RBC % (auto) (0.0-0.2) /100WBC Sodium (135-145) mmol/L Potassium (3.3-5.1) mmol/L Chloride (96-108) mmol/L Carbon Dioxide (22-29) mmol/L Anion Gap (12-20) BUN (9-16) mg/dL Creatinine (0.5-1.4) mg/dL Estim Creat Clear Calc Estimated GFR Random Glucose (60-115) mg/dL Calcium (8.4-10.2) mg/dL Total Bilirubin (0.0-1.0) mg/dL Direct Bilirubin (0.0-0.5) mg/dL AST (5-31) U/L ALT (0-31) U/L Alkaline Phosphatase (39-117) U/L Troponin I High Sens (<3.5-17.0) ng/L Total Protein (6.5-8.0) g/dL Albumin (3.5-5.0) g/dL Lipase (8-78) U/L Urine Color Yellow Urine Appearance Clear Urine pH 5.5 (5.0-9.0) Ur Specific [place] 1.020 (1.005-1.025) Urine Protein 30 (1+) H (Neg-Trace) mg/dL Urine Glucose (UA) Negative (Negative) mg/dL Urine Ketones Negative (Negative) mg/dL Urine Blood Negative (Negative) Urine Nitrite Negative (Negative) Ur Leukocyte Esterase Negative (Negative) Urine RBC 0-2 (0-2) /HPF Urine WBC 0-5 (0-5) /HPF Ur Squamous Epith Cells 0-2 (0-2) /HPF Urine Bacteria None Seen (None Seen) Hyaline Casts 0-2 (0-2) /LPF Influenza Type A (PCR) NEGATIVE (Negative) Influenza Type B (PCR) NEGATIVE (Negative) RSV RNA Qual (PCR) NEGATIVE (Negative) SARS-CoV-2 RNA (RT-PCR) NEGATIVE (Negative) Independent Interpretation I performed an independent interpretation of an: Plain X-Ray (Chest: Small patchy infiltrate representing pneumonia.) Radiology Impression Discussion of test interpretation with radiology: I have reviewed the radiologist's reading. Chronic Conditions Patient?s care impacted by: Other (COPD and long time cigarette smoking.) Discharge Plan Discharge Clinical Impression: Community acquired pneumonia, Acute exacerbation of chronic obstructive airways disease Patient Disposition: Home, Self-Care Instructions: Community Acquired Pneumonia (ED) Prescriptions: New azithromycin [Zithromax] 500 mg tablet 500 mg PO DAILY 7 Days Qty: 7 0RF prednisone 20 mg tablet 20 mg PO BID Qty: 10 0RF albuterol sulfate 90 mcg/actuation HFA aerosol inhaler 1 inh inhalation QID PRN (Reason: shortness of breath or wheezing) Qty: 8.5 0RF No Action hydroxychloroquine [Plaquenil] 200 mg tablet 200 mg PO BID oxycodone-acetaminophen [Percocet] 5-325 mg tablet 1 tab PO DAILY PRN albuterol sulfate 90 mcg/actuation HFA aerosol inhaler 2 puff inhalation Q4-6H PRN ibuprofen 800 mg tablet 800 mg PO TID PRN aspirin [Adult Low Dose Aspirin] 81 mg tablet,delayed release (DR/EC) 81 mg PO DAILY Breo Ellipta 200-25 mcg/dose blister with device 1 inh inhalation DAILY prednisone 5 mg tablet 5 mg PO DAILY PRN (Reason: flare) Qty: 90 1RF gabapentin 100 mg capsule See Rx Instructions PO BEDTIME Qty: 90 5RF Rx Instructions: 1-3 caps PO bedtime; Referrals: Marjan Sams MD [Primary Care Provider] -
[2022-08-13] MEDS: predniSONE 20 MG TABLET 40 MG PO (17:35)
[2022-08-13] MEDS: Albuterol Sulfate (0.083%) 2.5 MG/3 ML VIAL.NEB 10 MG INHALE (17:45)
[2022-08-13 17:47] VITALS: RESP 18; O2SAT 96
[2022-08-13 17:52] LABS: MANUAL DIFF FLAG NO
[2022-08-13 18:03] LABS: Basophils Percent Auto 0.2 % (0-2); Hematocrit 34.2 % (37.0-47.0); Hemoglobin 10.8 g/dl (12.0-16.0); Imm Gran Abs Auto 0.06 X10*3/uL (0.00-0.03); Imm Gran Pct Auto 0.9 % (0.0-0.4); Lymphocytes Absolute Auto 1.2 X10*3/uL (1.2-4.9); Lymphocytes Percent Auto 18.1 % (20-40); Mean Corpuscular HGB Conc 31.6 g/dl (31.0-35.0); Mean Corpuscular Hemoglobin 27.9 pg (27.0-33.0); Mean Corpuscular Volume 88.4 fL (80.0-98.0); Mean Platelet Volume 9.5 fL (9.4-12.3); Monocytes Absolute Auto 0.2 X10*3/uL (0.1-1.2); NRBC Pct Auto 0.6 /100WBC (0.0-0.2); Neutrophils Absolute Auto 4.9 x10*3/uL (2.0-8.3); Neutrophils Percent Auto 77.8 % (45-73); Platelet Count 276 X10*3/uL (160-400); Red Blood Count 3.87 X10*6/uL (4.20-5.50); Red Cell Distribution Width 18.5 % (11.0-16.0); White Blood Count 6.4 X10*3/uL (4.8-10.8)
[2022-08-13 18:16] LABS: Alanine Aminotransferase 34 U/L (0-31); Albumin Level 3.6 g/dL (3.5-5.0); Alkaline Phosphatase 96 U/L (39-117); Anion Gap 16 (12-20); Aspartate Amino Transferase 27 U/L (5-31); Bilirubin Direct 0.3 mg/dL (0.0-0.5); Bilirubin Total 0.7 mg/dL (0.0-1.0); Blood Urea Nitrogen 16 mg/dL (9-16); Calcium 8.7 mg/dL (8.4-10.2); Carbon Dioxide 18 mmol/L (22-29); Chloride 112 mmol/L (96-108); Creatinine Clr Calc Pharmacy 65.3; Estimated Glomerular Filt Rate > 60; Glucose Random 97 mg/dL (60-115); Lipase 26 U/L (8-78); Potassium 4.3 mmol/L (3.3-5.1); Sodium 142 mmol/L (135-145); Total Protein 7.9 g/dL (6.5-8.0)
[2022-08-13 18:17] LABS: Troponin-I High Sensitivity < 3.5 ng/L (<3.5-17.0)
[2022-08-13 18:34] LABS: Influenza A PCR NEGATIVE (Negative); Influenza B PCR NEGATIVE (Negative); Resp Syncy Virus RNA Qual PCR NEGATIVE (Negative); SARS COV2 PCR INHOUSE NEGATIVE (Negative)
[2022-08-13] MEDS: Azithromycin 500 MG TABLET PO (19:30)
[2022-08-13 19:37] LABS: Appearance Urine Clear; Color Urine Yellow; Glucose Urine UA Negative (Negative); Leukocyte Esterase Urine Negative (Negative); Nitrite Urine Negative (Negative); PH 5.5 (5.0-9.0); UMIC TRIGGER UACC YES; Urine Blood Negative (Negative); Urine Ketones Negative (Negative); Urine Protein 30 (1+) mg/dL (Neg-Trace)
[2022-08-13 19:42] LABS: Bacteria Urine None Seen (None Seen); Hyaline Casts Urine 0-2 /LPF (0-2); RBC Urine 0-2 /HPF (0-2); Squamous Epithelial Cell Urine 0-2 /HPF (0-2); WBC Urine 0-5 /HPF (0-5)
[2022-08-13 22:39] VITALS: PULSE 85; RESP 18; O2SAT 93
[2022-08-13] MEDS: Albuterol Sulfate (0.083%) 2.5 MG/3 ML VIAL.NEB INHALE (22:39)
== END 2022-08-13 23:15 | disposition home or self-care (01) ==
PROVIDERS: Emergency Provider Emergency Medicine; PCP Family Medicine
DX: J18.9 Pneumonia, unspecified organism (principal); J44.1 Chronic obstructive pulmonary disease with (acute) exacerbation; R06.02 Shortness of breath; F17.210 Nicotine dependence, cigarettes, uncomplicated; Z20.822 Contact with and (suspected) exposure to COVID-19; Z20.828 Contact with and (suspected) exposure to other viral communicable diseases; Z71.6 Tobacco abuse counseling; Z79.899 Other long term (current) drug therapy
CPT/HCPCS: 0241U; 71045; 80048; 80076; 81001; 83690; 84484; 85025; 93005; 94640; 99284

== ENCOUNTER 2022-09-12 14:25 | Outpatient (REF) | payer MEDICARE, MEDICAID, SELFPAY ==
[2022-09-12 14:36] LABS: MANUAL DIFF FLAG NO
[2022-09-12 14:46] LABS: Basophils Percent Auto 0.2 % (0-2); Eosinophils Percent Auto 0.2 % (0-4); Hematocrit 36.5 % (37.0-47.0); Hemoglobin 12.1 g/dl (12.0-16.0); Imm Gran Abs Auto 0.01 X10*3/uL (0.00-0.03); Imm Gran Pct Auto 0.2 % (0.0-0.4); Lymphocytes Absolute Auto 1.2 X10*3/uL (1.2-4.9); Lymphocytes Percent Auto 23.8 % (20-40); Mean Corpuscular HGB Conc 33.2 g/dl (31.0-35.0); Mean Corpuscular Hemoglobin 28.6 pg (27.0-33.0); Mean Corpuscular Volume 86.3 fL (80.0-98.0); Mean Platelet Volume 9.4 fL (9.4-12.3); Monocytes Absolute Auto 0.3 X10*3/uL (0.1-1.2); Monocytes Percent Auto 5.2 % (2-11); Neutrophils Absolute Auto 3.5 x10*3/uL (2.0-8.3); Neutrophils Percent Auto 70.4 % (45-73); Platelet Count 250 X10*3/uL (160-400); Red Blood Count 4.23 X10*6/uL (4.20-5.50); Red Cell Distribution Width 16.6 % (11.0-16.0)
[2022-09-12 16:01] LABS: Anion Gap 16 (12-20); Blood Urea Nitrogen 8 mg/dL (9-16); C Reactive Protein 7.32 mg/dL (< or = 0.50); Calcium 9.3 mg/dL (8.4-10.2); Carbon Dioxide 23 mmol/L (22-29); Chloride 105 mmol/L (96-108); Estimated Glomerular Filt Rate 59; Glucose Random 83 mg/dL (60-115); Potassium 4.1 mmol/L (3.3-5.1); Sodium 140 mmol/L (135-145)
== END 2022-09-12 14:26 | disposition home or self-care (01) ==
LOC: HO.LAB 14:25
PROVIDERS: PCP Family Medicine; Visit Provider Family Medicine
DX: Z13.89 Encounter for screening for other disorder (principal)
CPT/HCPCS: 36415; 80048; 85025; 86140

== ENCOUNTER 2022-09-13 09:13 | Outpatient (REF) | payer MEDICARE, MEDICAID, SELFPAY ==
--- NOTE | ~2022-09-13 | CT_ITS ---
EXAMINATION: CT ABDOMEN AND PELVIS WITH CONTRAST CLINICAL INFORMATION: Left lower quadrant pain COMPARISON: Previous CT of the abdomen and pelvis 2014 TECHNIQUE: Multidetector volumetric images were obtained from the superior aspect of the liver through the pubic symphysis following administration 85 mL of Omnipaque 350 intravenous contrast. Sagittal and coronal reformatted images were obtained on the technologist's workstation. Oral contrast: Yes This CT examination was performed using dose optimization techniques as appropriate, variously including the following: *Automated exposure control *Adjustment of mA and/or kV according to patient size (this includes techniques or standardized protocols for targeted exams where dose is matched to indication/reason for exam; i.e. extremities or head) *Use of iterative reconstruction technique DLP: 433 mGy-cm FINDINGS: LUNG BASES: The visualized lung bases are unremarkable. LIVER, GALLBLADDER, AND BILIARY TREE: The liver is normal in size, shape, and attenuation. No focal hepatic lesion or biliary ductal dilatation is present. The gallbladder is unremarkable with no evidence of radiopaque gallstones, gallbladder wall thickening, or obvious pericholecystic inflammatory changes. PANCREAS: Unremarkable. SPLEEN: Peripheral calcification of the spleen. ADRENAL GLANDS: Unremarkable. KIDNEYS AND URETERS: The kidneys are normal in size, shape, and attenuation. No hydronephrosis, hydroureter, or calculi seen. No perinephric stranding. BLADDER: Unremarkable. GASTROINTESTINAL TRACT: Diverticulitis of the proximal sigmoid colon with wall thickening and stranding of the surrounding fat. There is decreased attenuation seen in the wall questionable for intramural abscess. This measures 1.7 x 1.7 x 4.8 cm in AP transverse and longitudinal dimension. No evidence of obstruction, or perforation. Normal appendix. Normal small bowel. Normal stomach. ABDOMINAL WALL: No significant hernia is appreciated. Small cutaneous nodule in the lower Pelvis, question representing a sebaceous cyst. LYMPH NODES: Normal. VASCULAR: Atherosclerotic disease. PELVIC VISCERA: Unremarkable. 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 CT/CT abdomen pelvis w IV con IMPRESSION: Severe diverticulitis of the proximal sigmoid colon and probable intramural abscess. No evidence of obstruction or free air. Fleischner guidelines were followed.
[2022-09-13] MEDS: iohexoL 350 MG/ML 100 ML INFUS..BTL 85 ML IV (11:57)
[2022-09-13] MEDS: Barium Sulfate Oral (Berry) 450 ML ORAL.SUSP 900 ML PO (11:57)
== END 2022-09-13 09:14 | disposition home or self-care (01) ==
LOC: HO.CT 09:13
PROVIDERS: PCP Family Medicine; Visit Provider Family Medicine
DX: Z13.89 Encounter for screening for other disorder (principal)
CPT/HCPCS: 74177; Q9967

== ENCOUNTER 2022-09-13 14:50 | Inpatient (IN) | payer MEDICARE, MEDICAID, SELFPAY ==
[2022-09-13 16:18] VITALS: BP 100/69; PULSE 88; RESP 18; TEMP 36; O2SAT 99; BMI 29.5
--- NOTE | 2022-09-13 16:20 | ED.ABDPAIN ---
HPI - Abdominal Pain General Chief Complaint: General Medical <Tamia Bryant NP - Last Filed: 09/13/22 16:37> Stated Complaint: IV Antibiotics <Tamia Braynt NP - Last Filed: 09/13/22 16:37> Time Seen by Provider: 09/13/22 19:31 <Tamia Bryant NP - Last Filed: 09/13/22 16:37> Source: patient <MORALES Doherty - Last Filed: 09/13/22 21:54> Mode of arrival: ambulatory <MORALES Doherty - Last Filed: 09/13/22 21:54> Limitations: no limitations <MORALES Doherty Last Filed: 09/13/22 21:54> History of Present Illness HPI narrative: This a 57-year-old female history of diverticulitis, lupus, COPD and asthma presenting to the emergency department complaints of left lower quadrant pain, nausea, vomiting, anorexia since Sunday. Patient reports severe intermittent sharp stabbing pain to her left lower quadrant. Reports that she was seen by her PCP for this who prescribed antibiotics by mouth, is currently taking in 2 doses of Augmentin she states she was told she had some sort of ?stomach infection ?, PCP also ordered an outpatient CT scan which showed need for antibiotics through the IV per patient. Patient does tell me that since Sunday her pain has been progressively worsening. And she has not been able to tolerate much by mouth. Patient reports subjective fevers and chills. Denies chest pain, shortness of breath, hematemesis, headache, vision changes, dizziness, weakness. <MORALES Doherty - Last Filed: 09/13/22 21:54> Related Data Home Medications: Home Medications Medication Instructions Recorded Confirmed aspirin 81 mg tablet,delayed 81 mg PO DAILY 03/19/20 09/13/22 release (Adult Low Dose Aspirin) fluticasone furoate 200 1 inh inhalation DAILY 03/19/20 09/13/22 mcg-vilanterol 25 mcg/dose inhalation powder (Breo Ellipta) hydroxychloroquine 200 mg tablet 400 mg PO DAILY 03/19/20 09/13/22 (Plaquenil) oxycodone-acetaminophen 5 mg-325 1 tab PO Q12H PRN Pain 10/16/20 04/12/23 mg tablet (Percocet) amoxicillin 875 mg-potassium 1 tab PO BID 09/13/22 09/13/22 clavulanate 125 mg tablet levalbuterol HCl 1.25 mg/3 mL 1.25 mg inhalation Q4H PRN 09/13/22 09/13/22 solution for nebulization Respiratory Distress Previous Rx's Medication Instructions Recorded albuterol sulfate 90 mcg/actuation 1 inh inhalation QID PRN shortness 08/13/22 aerosol inhaler of breath or wheezing #8.5 grams <Tamia Bryant NP - Last Filed: 09/13/22 16:37> Allergies/Adverse Reactions: Allergies Allergy/AdvReac Type Severity Reaction Status Date / Time No Known Allergies Allergy Verified 09/13/22 16:18 <Tamia Bryant NP - Last Filed: 09/13/22 16:37> Review of Systems Review of Systems Constitutional : No Weight loss, + Fever, + Chills, + Fatigue, + Malaise ENT/Mouth : No sore throat, No Rhinorrhea Eyes: No Eye Pain, No Swelling, No Redness Cardiovascular : No Chest Pain, No SOB, No Dyspnea on Exertion, No Orthopnea, No Edema, No Palpitations Respiratory : No Cough, No Sputum, No Wheezing Gastrointestinal : + Nausea, + Vomiting, No Diarrhea, No Constipation, + abdominal Pain, No Hematochezia, No Melena Genitourinary : No Dysuria, No Urinary Frequency, No Hematuria, Musculoskeletal : No joint pain, No Myalgias, No Joint Swelling Skin : No Skin Lesions, No rash Neuro : No Weakness, No Numbness, No Dizziness, No Headache Psych : No Anxiety/Panic, No Depression Heme/Lymph: No Bruising, No Bleeding,No Lymphadenopathy Endocrine : No Polyuria, No Polydipsia All other systems reviewed and are negative <MORALES Doherty Last Filed: 09/13/22 21:54> Yes all other systems are reviewed and are negative <MORALES Doherty Last Filed: 09/13/22 21:54> [facility] Past Medical History Attestation statement: The following information was validated with the patient. <MORALES Doherty Last Filed: 09/13/22 21:54> Source: old records reviewed and nursing notes reviewed <MORALES Doherty - Last Filed: 09/13/22 21:54> Medical History: Medical History Asthma COPD (chronic obstructive pulmonary disease) Obstructive sleep apnea Smoker Systemic lupus erythematosus <Tamia Bryant NP - Last Filed: 09/13/22 16:37> Family History Family History: Family History Mother Breast cancer <Tamia Bryant NP - Last Filed: 09/13/22 16:37> Social History Social History: Social History Household Members: Significant Other Housing: Apartment Alcohol intake: current Alcohol intake frequency: a few times a week Alcohol type: hard liquor Patient Tobacco Use Status: Current everyday Tobacco user Cigarettes Per Day: 6 Years Smoked: since age 15 Smoked in Last 30 Days: Yes Use of substances other than those prescribed or required for medical reasons: No Advance Directives: No Advance Directives Information Provided: No Nutrition Risks: No Nutritional Risk Patient : No Current occupational status: disabled <Tamia Bryant NP - Last Filed: 09/13/22 16:37> Physical Exam ED Vital Signs: Vital Signs - 24 hr 09/13/22 16:18 09/13/22 19:46 09/13/22 21:35 Temperature 96.8 F 97.6 F 97.6 F Pulse Rate 88 71 83 Respiratory Rate 18 18 14 Blood Pressure 100/69 111/76 90/61 Pulse Oximetry 99 95 95 Oxygen Delivery Method Room Air Room Air Room Air BMI result Body Mass Index 29.5 <Tamia Bryant NP - Last Filed: 09/13/22 16:37> Vital Signs - 24 hr 09/13/22 16:18 09/13/22 19:46 09/13/22 21:35 Temperature 96.8 F 97.6 F 97.6 F Pulse Rate 88 71 83 Respiratory Rate 18 18 14 Blood Pressure 100/69 111/76 90/61 Pulse Oximetry 99 95 95 Oxygen Delivery Method Room Air Room Air Room Air BMI result Body Mass Index 29.5 vss <MORALES Doherty - Last Filed: 09/13/22 21:54> Appearance: Alert.? Oriented X3.? No acute distress.? Head: Normocephalic, atraumatic, no step-offs or deformities Eyes: Pupils equal, round and reactive to light.? Neck: Normal inspection.? Neck supple.? CVS: Normal heart rate and rhythm.? Pulses normal.? Respiratory: No respiratory distress.? Breath sounds normal.? Abdomen: Soft and discomfort with palpation to left lower quadrant..? Skin: Skin warm and dry.? Normal skin color.? Normal skin turgor.? Extremities: No lower extremity edema.? No calf ttp. 5/5 strength to bilateral upper and lower extremities Neuro: Oriented X 3.? No motor deficit.? No sensory deficit. CN 2-12 intact <MORALES Doherty - Last Filed: 09/13/22 21:54> Course Course Course Narrative: This is a rapid medical exam. Defer additional HPI, ROS, PE to primary provider. 57 yo female with history of COPD, lupus here with LLQ abdominal pain since sunday, had some vomiting this morning, had outpatient CT concerning for diverticulitis with intramural abscess. Was prescribed Augmentin yesterday has taken a total of 2 doses Will obtain labs, COVID screen, UA. Vital stable <Tamia Bryant NP - Last Filed: 09/13/22 16:37> Reevaluation(s) Reevaluation #1: CBC within normal limits. Chemistry with no acute findings requiring intervention. Lactic acid normal. Urine without infection. Patient's CT scan does show severe diverticulitis of the proximal sigmoid colon and probable intramural abscess. No evidence of obstruction or free air. I did give a dose of Zosyn, discussed this case with surgery will admit patient. Patient aware of plan. Answered all questions. <MORALES Doherty - Last Filed: 09/13/22 21:54> Time: 21:53 <MORALES Doherty - Last Filed: 09/13/22 21:54> Medical Decision Making Medical Decision Making MDM Narrative: 2100 57-year-old female presents with left lower quadrant pain currently prescribed Augmentin has only taken 2 doses for diverticulitis had an outpatient CT scan which showed diverticulitis with intramural abscess. Physical examination with significant tenderness to left lower quadrant. Left lower quadrant pain likely secondary to diverticulitis with intramural abscess is seen on CT scan. Unlikely peritonitis. Unlikely obstruction, appendicitis, cholecystitis, diverticulitis or pancreatitis. Will rule out electrolyte abnormalities. No signs of ovarian torsion or ectopic Plan at this time blood cultures, lactic, labs will review CT from yesterday will reach out to surgery <MORALES Doherty - Last Filed: 09/13/22 21:54> Differential Diagnosis Differential Diagnoses: The differential diagnosis associated with the presentation includes <MORALES Doherty - Last Filed: 09/13/22 21:54> Left lower quadrant pain likely secondary to diverticulitis with intramural abscess is seen on CT scan. Unlikely peritonitis. Unlikely obstruction, appendicitis, cholecystitis, diverticulitis or pancreatitis. Will rule out electrolyte abnormalities. No signs of ovarian torsion or ectopic <MORALES Doherty - Last Filed: 09/13/22 21:54> Admission/Observation Consideration of admission/observation: Escalation of care including admission/observation considered <MORALES Doherty - Last Filed: 09/13/22 21:54> Consult Healthcare Provider Management of the patient was discussed with: Software Systems Architect (General surgery Dr. Landers) <MORALES Doherty - Last Filed: 09/13/22 21:54> Lab Data MDM Lab Attestation statement: I reviewed the patient's lab results. <MORALES Doherty - Last Filed: 09/13/22 21:54> Result Diagrams: 09/13/22 17:08 09/13/22 17:08 <Tamia Bryant NP - Last Filed: 09/13/22 16:37> Labs: Lab Results 09/13/22 09/13/22 09/13/22 Range/Units 17:08 17:08 17:08 WBC 5.9 (4.8-10.8) X10*3/uL RBC 4.35 (4.20-5.50) X10*6/uL Hgb 12.4 (12.0-16.0) g/dl Hct 37.6 (37.0-47.0) % MCV 86.4 (80.0-98.0) fL MCH 28.5 (27.0-33.0) pg MCHC 33.0 (31.0-35.0) g/dl RDW 16.5 H (11.0-16.0) % Plt Count 266 (160-400) X10*3/uL MPV 9.7 (9.4-12.3) fL Immature Gran % (Auto) 0.2 (0.0-0.4) % Neut % (Auto) 66.6 (45-73) % Lymph % (Auto) 29.0 (20-40) % [place] % (Auto) 4.0 (2-11) % Eos % (Auto) 0.0 (0-4) % Baso % (Auto) 0.2 (0-2) % Lymph # (Auto) 1.7 (1.2-4.9) X10*3/uL [place] # (Auto) 0.2 (0.1-1.2) X10*3/uL Eos # (Auto) 0.0 (0.0-0.4) X10*3/uL Baso # (Auto) 0.0 (0.0-0.2) X10*3/uL Abs Immat Gran (auto) 0.01 (0.00-0.03) X10*3/uL Absolute Neuts (auto) 4.0 (2.0-8.3) x10*3/uL Absolute Nucleated RBC 0.000 (0.0-0.012) X10*3/uL Nucleated RBC % (auto) 0.0 (0.0-0.2) /100WBC Sodium 138 (135-145) mmol/L Potassium 4.2 (3.3-5.1) mmol/L Chloride 102 (96-108) mmol/L Carbon Dioxide 21 L (22-29) mmol/L Anion Gap 19 (12-20) BUN 12 (9-16) mg/dL Creatinine 0.90 (0.5-1.4) mg/dL Estim Creat Clear Calc 65.4 Estimated GFR > 60 Random Glucose 75 (60-115) mg/dL Lactic Acid 1.2 (0.5-2.0) mmol/L Calcium 9.4 (8.4-10.2) mg/dL Total Bilirubin 1.0 (0.0-1.0) mg/dL Direct Bilirubin 0.4 (0.0-0.5) mg/dL AST 18 (5-31) U/L ALT 10 (0-31) U/L Alkaline Phosphatase 85 (39-117) U/L Total Protein 8.3 H (6.5-8.0) g/dL Albumin 4.0 (3.5-5.0) g/dL Urine Color Urine Appearance Urine pH (5.0-9.0) Ur Specific Anna (1.005-1.025) Urine Protein (Neg-Trace) mg/dL Urine Glucose (UA) (Negative) mg/dL Urine Ketones (Negative) mg/dL Urine Blood (Negative) Urine Nitrite (Negative) Ur Leukocyte Esterase (Negative) Urine RBC (0-2) /HPF Urine WBC (0-5) /HPF Ur Squamous Epith Cells (0-2) /HPF Urine Bacteria (None Seen) Hyaline Casts (0-2) /LPF 09/13/22 Range/Units 19:59 WBC (4.8-10.8) X10*3/uL RBC (4.20-5.50) X10*6/uL Hgb (12.0-16.0) g/dl Hct (37.0-47.0) % MCV (80.0-98.0) fL MCH (27.0-33.0) pg MCHC (31.0-35.0) g/dl RDW (11.0-16.0) % Plt Count (160-400) X10*3/uL MPV (9.4-12.3) fL Immature Gran % (Auto) (0.0-0.4) % Neut % (Auto) (45-73) % Lymph % (Auto) (20-40) % [place] % (Auto) (2-11) % Eos % (Auto) (0-4) % Baso % (Auto) (0-2) % Lymph # (Auto) (1.2-4.9) X10*3/uL [place] # (Auto) (0.1-1.2) X10*3/uL Eos # (Auto) (0.0-0.4) X10*3/uL Baso # (Auto) (0.0-0.2) X10*3/uL Abs Immat Gran (auto) (0.00-0.03) X10*3/uL Absolute Neuts (auto) (2.0-8.3) x10*3/uL Absolute Nucleated RBC (0.0-0.012) X10*3/uL Nucleated RBC % (auto) (0.0-0.2) /100WBC Sodium (135-145) mmol/L Potassium (3.3-5.1) mmol/L Chloride (96-108) mmol/L Carbon Dioxide (22-29) mmol/L Anion Gap (12-20) BUN (9-16) mg/dL Creatinine (0.5-1.4) mg/dL Estim Creat Clear Calc Estimated GFR Random Glucose (60-115) mg/dL Lactic Acid (0.5-2.0) mmol/L Calcium (8.4-10.2) mg/dL Total Bilirubin (0.0-1.0) mg/dL Direct Bilirubin (0.0-0.5) mg/dL AST (5-31) U/L ALT (0-31) U/L Alkaline Phosphatase (39-117) U/L Total Protein (6.5-8.0) g/dL Albumin (3.5-5.0) g/dL Urine Color Dark Yellow Urine Appearance Clear Urine pH 5.5 (5.0-9.0) Ur Specific Anna >= 1.030 H (1.005-1.025) Urine Protein 30 (1+) H (Neg-Trace) mg/dL Urine Glucose (UA) Negative (Negative) mg/dL Urine Ketones Trace (Negative) mg/dL Urine Blood Trace H (Negative) Urine Nitrite Negative (Negative) Ur Leukocyte Esterase Trace H (Negative) Urine RBC 3-5 H (0-2) /HPF Urine WBC 0-5 (0-5) /HPF Ur Squamous Epith Cells 6-10 (0-2) /HPF Urine Bacteria None Seen (None Seen) Hyaline Casts 3-5 (0-2) /LPF <Tamia Bryant DOCTOR OF NATUROPATHIC MEDICINE - Last Filed: 09/13/22 16:37> Lab Results 09/13/22 09/13/22 09/13/22 Range/Units 17:08 17:08 17:08 WBC 5.9 (4.8-10.8) X10*3/uL RBC 4.35 (4.20-5.50) X10*6/uL Hgb 12.4 (12.0-16.0) g/dl Hct 37.6 (37.0-47.0) % MCV 86.4 (80.0-98.0) fL MCH 28.5 (27.0-33.0) pg MCHC 33.0 (31.0-35.0) g/dl RDW 16.5 H (11.0-16.0) % Plt Count 266 (160-400) X10*3/uL MPV 9.7 (9.4-12.3) fL Immature Gran % (Auto) 0.2 (0.0-0.4) % Neut % (Auto) 66.6 (45-73) % Lymph % (Auto) 29.0 (20-40) % [place] % (Auto) 4.0 (2-11) % Eos % (Auto) 0.0 (0-4) % Baso % (Auto) 0.2 (0-2) % Lymph # (Auto) 1.7 (1.2-4.9) X10*3/uL [place] # (Auto) 0.2 (0.1-1.2) X10*3/uL Eos # (Auto) 0.0 (0.0-0.4) X10*3/uL Baso # (Auto) 0.0 (0.0-0.2) X10*3/uL Abs Immat Gran (auto) 0.01 (0.00-0.03) X10*3/uL Absolute Neuts (auto) 4.0 (2.0-8.3) x10*3/uL Absolute Nucleated RBC 0.000 (0.0-0.012) X10*3/uL Nucleated RBC % (auto) 0.0 (0.0-0.2) /100WBC Sodium 138 (135-145) mmol/L Potassium 4.2 (3.3-5.1) mmol/L Chloride 102 (96-108) mmol/L Carbon Dioxide 21 L (22-29) mmol/L Anion Gap 19 (12-20) BUN 12 (9-16) mg/dL Creatinine 0.90 (0.5-1.4) mg/dL Estim Creat Clear Calc 65.4 Estimated GFR > 60 Random Glucose 75 (60-115) mg/dL Lactic Acid 1.2 (0.5-2.0) mmol/L Calcium 9.4 (8.4-10.2) mg/dL Total Bilirubin 1.0 (0.0-1.0) mg/dL Direct Bilirubin 0.4 (0.0-0.5) mg/dL AST 18 (5-31) U/L ALT 10 (0-31) U/L Alkaline Phosphatase 85 (39-117) U/L Total Protein 8.3 H (6.5-8.0) g/dL Albumin 4.0 (3.5-5.0) g/dL Urine Color Urine Appearance Urine pH (5.0-9.0) Ur Specific Anna (1.005-1.025) Urine Protein (Neg-Trace) mg/dL Urine Glucose (UA) (Negative) mg/dL Urine Ketones (Negative) mg/dL Urine Blood (Negative) Urine Nitrite (Negative) Ur Leukocyte Esterase (Negative) Urine RBC (0-2) /HPF Urine WBC (0-5) /HPF Ur Squamous Epith Cells (0-2) /HPF Urine Bacteria (None Seen) Hyaline Casts (0-2) /LPF 09/13/22 Range/Units 19:59 WBC (4.8-10.8) X10*3/uL RBC (4.20-5.50) X10*6/uL Hgb (12.0-16.0) g/dl Hct (37.0-47.0) % MCV (80.0-98.0) fL MCH (27.0-33.0) pg MCHC (31.0-35.0) g/dl RDW (11.0-16.0) % Plt Count (160-400) X10*3/uL MPV (9.4-12.3) fL Immature Gran % (Auto) (0.0-0.4) % Neut % (Auto) (45-73) % Lymph % (Auto) (20-40) % [place] % (Auto) (2-11) % Eos % (Auto) (0-4) % Baso % (Auto) (0-2) % Lymph # (Auto) (1.2-4.9) X10*3/uL [place] # (Auto) (0.1-1.2) X10*3/uL Eos # (Auto) (0.0-0.4) X10*3/uL Baso # (Auto) (0.0-0.2) X10*3/uL Abs Immat Gran (auto) (0.00-0.03) X10*3/uL Absolute Neuts (auto) (2.0-8.3) x10*3/uL Absolute Nucleated RBC (0.0-0.012) X10*3/uL Nucleated RBC % (auto) (0.0-0.2) /100WBC Sodium (135-145) mmol/L Potassium (3.3-5.1) mmol/L Chloride (96-108) mmol/L Carbon Dioxide (22-29) mmol/L Anion Gap (12-20) BUN (9-16) mg/dL Creatinine (0.5-1.4) mg/dL Estim Creat Clear Calc Estimated GFR Random Glucose (60-115) mg/dL Lactic Acid (0.5-2.0) mmol/L Calcium (8.4-10.2) mg/dL Total Bilirubin (0.0-1.0) mg/dL Direct Bilirubin (0.0-0.5) mg/dL AST (5-31) U/L ALT (0-31) U/L Alkaline Phosphatase (39-117) U/L Total Protein (6.5-8.0) g/dL Albumin (3.5-5.0) g/dL Urine Color Dark Yellow Urine Appearance Clear Urine pH 5.5 (5.0-9.0) Ur Specific Anna >= 1.030 H (1.005-1.025) Urine Protein 30 (1+) H (Neg-Trace) mg/dL Urine Glucose (UA) Negative (Negative) mg/dL Urine Ketones Trace (Negative) mg/dL Urine Blood Trace H (Negative) Urine Nitrite Negative (Negative) Ur Leukocyte Esterase Trace H (Negative) Urine RBC 3-5 H (0-2) /HPF Urine WBC 0-5 (0-5) /HPF Ur Squamous Epith Cells 6-10 (0-2) /HPF Urine Bacteria None Seen (None Seen) Hyaline Casts 3-5 (0-2) /LPF <MORALES Doherty - Last Filed: 09/13/22 21:54> Independent Interpretation I performed an independent interpretation of an: CT Scan (CT/CT abdomen pelvis w IV con IMPRESSION: Severe diverticulitis of the proximal sigmoid colon and probable intramural abscess. No evidence of obstruction or free air. Fleischner guidelines were followed.) <MORALES Doherty - Last Filed: 09/13/22 21:54> Core Measures AMI core measures followed: Yes <MORALES Doherty - Last Filed: 09/13/22 21:54> Measure exclusions: not indicated <MORALES Doherty - Last Filed: 09/13/22 21:54> Medications Administered Generic Name Dose Route Start Last Admin Trade Name Freq PRN Reason Stop Dose Admin Heparin Sodium (Porcine) 5,000 unit 09/13/22 21:00 09/13/22 21:29 Heparin Sodium,Porcine 5,000 Unit/Ml Vial SUBCUT 5,000 unit Q12H CARLEY Administration Acetaminophen 1,000 mg in 100 mls @ 400 mls/hr 09/13/22 21:00 09/13/22 21:29 Ofirmev IV 09/14/22 15:14 400 mls/hr Q6H CARLEY Administration Discontinued Medications Generic Name Dose Route Start Last Admin Trade Name Freq PRN Reason Stop Dose Admin Piperacillin Sod/Tazobactam 50 mls @ 100 mls/hr 09/13/22 20:33 09/13/22 21:11 Sod 3.375 gm/ Sodium Chloride IV 09/13/22 21:02 Infused ONCE ONE Infusion Sodium Chloride 1,000 mls @ 999 mls/hr 09/13/22 20:45 09/13/22 20:41 Ns IV 09/13/22 21:45 999 mls/hr .Q1H1M CARLEY Administration Morphine Sulfate 4 mg 09/13/22 21:05 09/13/22 21:29 Morphine Sulfate 4 Mg/Ml Cartridge IVPUSH 09/13/22 21:06 4 mg ONCE ONE Administration Protocol Ondansetron HCl 4 mg 09/13/22 20:34 09/13/22 20:41 Ondansetron Hcl 4 Mg/2 Ml Vial IVPUSH 09/13/22 20:35 4 mg ONCE ONE Administration <Tamia Bryant NP - Last Filed: 09/13/22 16:37> Medications Administered Generic Name Dose Route Start Last Admin Trade Name Freq PRN Reason Stop Dose Admin Heparin Sodium (Porcine) 5,000 unit 09/13/22 21:00 09/13/22 21:29 Heparin Sodium,Porcine 5,000 Unit/Ml Vial SUBCUT 5,000 unit Q12H CARLEY Administration Acetaminophen 1,000 mg in 100 mls @ 400 mls/hr 09/13/22 21:00 09/13/22 21:29 Ofirmev IV 09/14/22 15:14 400 mls/hr Q6H CARLEY Administration Discontinued Medications Generic Name Dose Route Start Last Admin Trade Name Freq PRN Reason Stop Dose Admin Piperacillin Sod/Tazobactam 50 mls @ 100 mls/hr 09/13/22 20:33 09/13/22 21:11 Sod 3.375 gm/ Sodium Chloride IV 09/13/22 21:02 Infused ONCE ONE Infusion Sodium Chloride 1,000 mls @ 999 mls/hr 09/13/22 20:45 09/13/22 20:41 Ns IV 09/13/22 21:45 999 mls/hr .Q1H1M CARLEY Administration Morphine Sulfate 4 mg 09/13/22 21:05 09/13/22 21:29 Morphine Sulfate 4 Mg/Ml Cartridge IVPUSH 09/13/22 21:06 4 mg ONCE ONE Administration Protocol Ondansetron HCl 4 mg 09/13/22 20:34 09/13/22 20:41 Ondansetron Hcl 4 Mg/2 Ml Vial IVPUSH 09/13/22 20:35 4 mg ONCE ONE Administration <MORALES Doherty - Last Filed: 09/13/22 21:54> Critical Care Time Critical Care Time Critical Care Time: Yes <MORALES Doherty - Last Filed: 09/13/22 21:54> Total Critical Care Time: 35 <MORALES Doherty - Last Filed: 09/13/22 21:54> Attestation: I attest to this time spent taking care of the patient, obtaining history, physical, reviewing labs, imaging, speaking to my attending, speaking to specialist. <MORALES Doherty - Last Filed: 09/13/22 21:54> Discharge Plan Discharge Clinical Impression: Diverticulitis <Tamia Bryant NP - Last Filed: 09/13/22 16:37> Patient Disposition: Admitted As Inpatient <Tamia Bryant NP - Last Filed: 09/13/22 16:37> Instructions: Diverticulitis (ED) <Tamia Bryant NP - Last Filed: 09/13/22 16:37> Prescriptions: No Action albuterol sulfate 90 mcg/actuation HFA aerosol inhaler 1 inh inhalation QID PRN (Reason: shortness of breath or wheezing) Qty: 8.5 0RF amoxicillin-pot clavulanate 875-125 mg tablet 1 tab PO BID Rx Instructions: PATIENT HAS TAKEN 3 DOSES ONLY levalbuterol HCl 1.25 mg/3 mL Solution For Nebulization 1.25 mg INHALATION Q4H PRN (Reason: Respiratory Distress) hydroxychloroquine [Plaquenil] 200 mg tablet 400 mg PO DAILY oxycodone-acetaminophen [Percocet] 5-325 mg tablet 1 tab PO Q12H PRN (Reason: Pain) aspirin [Adult Low Dose Aspirin] 81 mg tablet,delayed release (DR/EC) 81 mg PO DAILY Breo Ellipta 200-25 mcg/dose blister with device 1 inh inhalation DAILY <Tamia Bryant NP - Last Filed: 09/13/22 16:37>
[2022-09-13 17:17] LABS: MANUAL DIFF FLAG NO
[2022-09-13 17:31] LABS: Basophils Percent Auto 0.2 % (0-2); Hematocrit 37.6 % (37.0-47.0); Hemoglobin 12.4 g/dl (12.0-16.0); Imm Gran Abs Auto 0.01 X10*3/uL (0.00-0.03); Imm Gran Pct Auto 0.2 % (0.0-0.4); Lactic Acid 1.2 mmol/L (0.5-2.0); Lymphocytes Absolute Auto 1.7 X10*3/uL (1.2-4.9); Mean Corpuscular Hemoglobin 28.5 pg (27.0-33.0); Mean Corpuscular Volume 86.4 fL (80.0-98.0); Mean Platelet Volume 9.7 fL (9.4-12.3); Monocytes Absolute Auto 0.2 X10*3/uL (0.1-1.2); Neutrophils Percent Auto 66.6 % (45-73); Platelet Count 266 X10*3/uL (160-400); Red Blood Count 4.35 X10*6/uL (4.20-5.50); Red Cell Distribution Width 16.5 % (11.0-16.0); SCAN SMEAR FLAG 1; White Blood Count 5.9 X10*3/uL (4.8-10.8)
[2022-09-13 17:43] LABS: Alanine Aminotransferase 10 U/L (0-31); Alkaline Phosphatase 85 U/L (39-117); Anion Gap 19 (12-20); Aspartate Amino Transferase 18 U/L (5-31); Bilirubin Direct 0.4 mg/dL (0.0-0.5); Blood Urea Nitrogen 12 mg/dL (9-16); Calcium 9.4 mg/dL (8.4-10.2); Carbon Dioxide 21 mmol/L (22-29); Chloride 102 mmol/L (96-108); Creatinine Clr Calc Pharmacy 65.4; Estimated Glomerular Filt Rate > 60; Glucose Random 75 mg/dL (60-115); Potassium 4.2 mmol/L (3.3-5.1); Sodium 138 mmol/L (135-145); Total Protein 8.3 g/dL (6.5-8.0)
[2022-09-13 19:46] VITALS: BP 111/76; PULSE 71; RESP 18; TEMP 36.4; O2SAT 95
[2022-09-13 20:05] LABS: Appearance Urine Clear; Color Urine Dark Yellow; Glucose Urine UA Negative (Negative); Leukocyte Esterase Urine Trace (Negative); Nitrite Urine Negative (Negative); PH 5.5 (5.0-9.0); Specific Gravity - Urine >= 1.030 (1.005-1.025); UMIC TRIGGER UACC YES; Urine Blood Trace (Negative); Urine Ketones Trace mg/dL (Negative); Urine Protein 30 (1+) mg/dL (Neg-Trace)
[2022-09-13 20:08] LABS: Bacteria Urine None Seen (None Seen); WBC Urine 0-5 /HPF (0-5)
[2022-09-13] MEDS: Piperacillin Sodium/Tazobactam 3.375 GM in 0.9 % Sodium Chloride 50 ML IV (20:41)
[2022-09-13] MEDS: 0.9 % Sodium Chloride 1,000 ML 999 ML IV (20:41)
[2022-09-13] MEDS: ondansetron HCL 4 MG/2 ML VIAL IVPUSH (20:41)
[2022-09-13] MEDS: Acetaminophen 1,000 MG/100 ML PIGGYBACK 400 MG IV (21:29)
[2022-09-13] MEDS: Heparin Sodium,Porcine 5,000 UNIT/ML VIAL 5000 UNIT SUBCUT (21:29)
[2022-09-13] MEDS: Morphine Sulfate 4 MG/ML CARTRIDGE IVPUSH (21:29)
[2022-09-13 21:35] VITALS: BP 90/61; PULSE 83; RESP 14; TEMP 36.4; O2SAT 95
--- NOTE | 2022-09-13 21:47 | PHA.MEDREC ---
MED REC COMPLETE, NO ISSUES Pharmacy Consult ? Medication Reconciliation Pharmacy has completed the medication reconciliation.
[2022-09-13 22:26] LABS: HCG Quantitative 3 mIU/mL
[2022-09-13] MEDS: Dextrose 5 % and Lactated Ring 1,000 ML 125 ML IVCONT (22:59)
--- NOTE | 2022-09-13 23:27 | PC.NURSE ---
RN to RN reports given to nurse Murphy. Pt being transferred to room 343 and aware of plan of care.
[2022-09-14] VITALS: BP 99/59; PULSE 63; RESP 16; TEMP 36.3; O2SAT 94
[2022-09-14] MEDS: oxyCODONE HCl Immed Release 5 MG TABLET PO ×4 (01:04→18:19)
[2022-09-14] MEDS: 0.9 % Sodium Chloride Flush 3 ML SYRINGE IVFLUSH ×2 (01:05→23:55)
[2022-09-14] MEDS: Piperacillin Sodium/Tazobactam 3.375 GM in 0.9 % Sodium Chloride 50 ML IV ×4 (01:05→19:48)
[2022-09-14 03:07] VITALS: BP 100/55; PULSE 53; RESP 16; TEMP 36.3; O2SAT 98
[2022-09-14] MEDS: Acetaminophen 1,000 MG/100 ML PIGGYBACK 400 MG IV ×3 (03:40→14:34)
[2022-09-14] MEDS: Dextrose 5 % and Lactated Ring 1,000 ML 125 ML IVCONT ×3 (05:52→19:47)
[2022-09-14 06:21] LABS: Basophils Percent Auto 0.2 % (0-2); Hematocrit 31.7 % (37.0-47.0); Hemoglobin 10.4 g/dl (12.0-16.0); Imm Gran Abs Auto 0.01 X10*3/uL (0.00-0.03); Imm Gran Pct Auto 0.2 % (0.0-0.4); Lymphocytes Absolute Auto 1.3 X10*3/uL (1.2-4.9); Lymphocytes Percent Auto 32.2 % (20-40); MANUAL DIFF FLAG SCAN; Mean Corpuscular HGB Conc 32.8 g/dl (31.0-35.0); Mean Corpuscular Hemoglobin 28.6 pg (27.0-33.0); Mean Corpuscular Volume 87.1 fL (80.0-98.0); Mean Platelet Volume 9.5 fL (9.4-12.3); Monocytes Absolute Auto 0.3 X10*3/uL (0.1-1.2); Monocytes Percent Auto 7.2 % (2-11); Neutrophils Absolute Auto 2.5 x10*3/uL (2.0-8.3); Neutrophils Percent Auto 60.2 % (45-73); Platelet Count 199 X10*3/uL (160-400); Red Blood Count 3.64 X10*6/uL (4.20-5.50); Red Cell Distribution Width 16.7 % (11.0-16.0); SCAN SMEAR FLAG 1; White Blood Count 4.2 X10*3/uL (4.8-10.8)
[2022-09-14 06:41] LABS: SLIDE REVIEW VERIFIED
[2022-09-14 06:49] LABS: Anion Gap 13 (12-20); Blood Urea Nitrogen 11 mg/dL (9-16); Calcium 8.4 mg/dL (8.4-10.2); Carbon Dioxide 24 mmol/L (22-29); Chloride 107 mmol/L (96-108); Creatinine Clr Calc Pharmacy 72.7; Estimated Glomerular Filt Rate > 60; Glucose Random 95 mg/dL (60-115); Sodium 140 mmol/L (135-145)
[2022-09-14 07:05] VITALS: BP 146/68; PULSE 56; RESP 18; TEMP 36.6; O2SAT 96
--- NOTE | 2022-09-14 07:24 | P.HPGS_ITS ---
History of Present Illness History of Present Illness Date of Service: 09/14/22 Chief complaint: Acute Sigmoid Diverticulitis Narrative: Tammy Moeller is a 57 year old femalePresenting with complaints of abdominal pain in the left lower quadrant. Pain began last Sunday who has persisted mainly in the left lower and right lower quadrants. She denies a previous history of similar pain. Her last bowel movement was yesterday afternoon however she reports being very constipated . She denies fever, chills, nausea or vomiting. She denies a previous history of abdominal surgery. Past history is significant for lupus and COPD. She presented to the emergency department was noted to have a normal WBC. CT of the abdomen and pelvis however revealed evidence of acute sigmoid diverticulitis with an mesenteric abscess. There is no evidence of free air or intraperitoneal fluid collections. Patient is admitted to the surgical service for management of this acute sigmoid diverticulitis. Review of Systems Review of Systems: Yes all other systems are reviewed and are negative Constitutional: Constitutional: Denies chills, Denies fever(s), Denies headache(s), Denies poor appetite and Denies weakness ENT: Denies headache(s) Cardiovascular: Cardiovascular: Denies chest pain, Denies irregular heart rhythm, Denies palpitations and Denies dyspnea Respiratory: Respiratory: Denies cough, Denies excessive phlegm production and Denies dyspnea Gastrointestinal: Gastrointestinal: Reports as per HPI, Reports abdominal pain, Denies bloating, Denies change in bowel habits, Reports constipation, Reports GI cramping, Denies heartburn, Denies diarrhea, Denies nausea and Denies vomiting Genitourinary: Genitourinary: Denies urinary frequency Musculoskeletal: Musculoskeletal: Denies back pain, Denies muscle weakness and Denies numbness Integumentary/Breasts: Skin/Breast: Denies changing lesions and Denies unusual bruising Neurologic: Denies headache(s), Denies numbness, Denies paresthesias and Denies weakness Psychiatric: Psychiatric: Denies anxiety and Denies depression Endocrine: Endocrine: Denies palpitations Hematologic/Lymphatic: Hematologic/Lymphatic: Denies lymphadenopathy [facility] Past Medical History Medical History Asthma COPD (chronic obstructive pulmonary disease) Obstructive sleep apnea Smoker Systemic lupus erythematosus Family History Family History Mother Breast cancer Social History Social History Household Members: Significant Other Housing: Apartment Do you presently have visiting nurse or other home services: No Alcohol intake: current Alcohol intake frequency: a few times a week Alcohol type: hard liquor Patient Tobacco Use Status: Current everyday Tobacco user Tobacco use type: Cigarette Cigarette Packs Per Day: 0.5 Cigarettes Per Day: 10.0 Years Smoked: since age 15 Smoked in Last 30 Days: Yes Patient Interested in Nicotine Replacement: No Patient Given Instructions on How to Stop Smoking: No Second Hand Smoke Exposure: No Use of substances other than those prescribed or required for medical reasons: No Currently Displaying Signs/Symptoms of Drug Intoxication Withdrawal: No Any prior treatment program specific to substance use: No Have you been hit, kicked, punched, or otherwise hurt by someone within the past year? If so, by whom?: No Do you feel safe in your current relationship?: Yes Is there a partner from a previous relationship who is making you feel unsafe now?: No Advance Directives: No Advance Directives Information Provided: No Advance Directives on File: Yes Do you have thoughts of harming others: None Do you have a plan to hurt others: No Plan Recently lost weight without trying: No Eating poorly because of decreased appetite: No Nutrition Risks: No Nutritional Risk Patient : No : No Poor oral hygiene: No Current occupational status: disabled Meds Allergies Allergy/AdvReac Type Severity Reaction Status Date / Time No Known Allergies Allergy Verified 09/13/22 16:18 Active Medications: Current Medications Heparin Sodium (Porcine) (Heparin Sodium,Porcine 5,000 Unit/Ml Vial) 5,000 unit SUBCUT Q12H [facility] Last Admin: 09/13/22 21:29 Dose: 5,000 unit Hydromorphone HCl (Hydromorphone Hcl 0.5 Mg/0.5 Ml Syringe) 0.5 mg IVPUSH Q3H PRN; Protocol PRN Reason: Pain, Severe (Pain Scale 7-10) Dextrose/Lactated Ringer's (D5lr) 1,000 mls @ 125 mls/hr IVCONT .Q8H [facility] Last Admin: 09/14/22 05:52 Dose: 125 mls/hr Acetaminophen (Ofirmev) 1,000 mg in 100 mls @ 400 mls/hr IV Q6H [facility] Stop: 09/14/22 15:14 Last Infusion: 09/14/22 05:14 Dose: Infused Piperacillin Sod/Tazobactam (Sod 3.375 gm/ Sodium Chloride) 50 mls @ 100 mls/hr IV Q6H [facility] Last Infusion: 09/14/22 01:42 Dose: Infused Ondansetron HCl (Ondansetron Hcl 4 Mg/2 Ml Vial) 4 mg IVPUSH Q8H PRN PRN Reason: Nausea Oxycodone HCl (Oxycodone Hcl Immed Release 5 Mg Tablet) 5 mg PO Q6H PRN PRN Reason: Pain, Moderate (Pain Scale 4-6 Last Admin: 09/14/22 01:04 Dose: 5 mg Pharmacy Consult (Consult Rx Perform Med Rec) 1 each MISCELLANE ONCE PRN PRN Reason: Consult order Sodium Chloride (0.9 % Sodium Chloride Flush 3 Ml Syringe) [facility] Last Admin: 09/14/22 01:05 Dose: 3 ml Zolpidem Tartrate (Zolpidem Tartrate 5 Mg Tablet) 5 mg PO BEDTIME PRN PRN Reason: Insomnia Home Medications Medication Instructions Recorded Confirmed Last Taken Type aspirin 81 mg tablet,delayed 81 mg PO DAILY 03/19/20 09/13/22 Unknown History release (Adult Low Dose Aspirin) fluticasone furoate 200 1 inh inhalation DAILY 03/19/20 09/13/22 Unknown History mcg-vilanterol 25 mcg/dose inhalation powder (Breo Ellipta) hydroxychloroquine 200 mg tablet 400 mg PO DAILY 03/19/20 09/13/22 Unknown History (Plaquenil) oxycodone-acetaminophen 5 mg-325 1 tab PO Q12H PRN Pain 03/19/20 09/13/22 Unknown History mg tablet (Percocet) amoxicillin 875 mg-potassium 1 tab PO BID 09/13/22 09/13/22 Unknown History clavulanate 125 mg tablet levalbuterol HCl 1.25 mg/3 mL 1.25 mg inhalation Q4H PRN 09/13/22 09/13/22 Unkno wn History solution for nebulization Respiratory Distress Physical Exam Vital Signs: Vital Signs: Last Vital Signs Temp 97.9 F 09/14/22 07:05 Pulse 56 09/14/22 07:05 Resp 18 09/14/22 07:05 BP 146/68 H 09/14/22 07:05 Pulse Ox 96 09/14/22 07:05 O2 Del Method Room Air 09/14/22 07:05 BMI result Body Mass Index 29.5 Const: General: cooperative and no acute distress Nutritional Appearance: well nourished Orientation/consciousness: patient oriented x3 Limitations: no limitations HEENT: Head: Yes normocephalic and Yes atraumatic Ears: hearing grossly normal bilaterally Resp: Effort & Inspection: normal respiratory effort, no audible wheezes, no cough and no respiratory distress Cardio: Jugular venous distension: no JVD GI: Inspection: Yes normal to inspection Palpation (GI): Soft to palpation, Tenderness to palpation present (GI) in the LLQ; psoas sign negative and with no rebound tenderness, no guarding and not rigid Percussion: Yes normal to percussion Auscultation: normal bowel sounds Rectal Exam - Female: def erred Skin: Other: Warm, dry, no rash Neuro: General: patient oriented x3 Extrem: General: Yes no clubbing, cyanosis or edema Results Results Labs: Short CBC 09/13/22 09/14/22 Range/Units 17:08 05:00 WBC 5.9 4.2 L (4.8-10.8) X10*3/uL Hgb 12.4 10.4 L (12.0-16.0) g/dl Hct 37.6 31.7 L (37.0-47.0) % Plt Count 266 199 D (160-400) X10*3/uL BMP 09/13/22 09/14/22 17:08 05:00 Sodium 138 140 Potassium 4.2 4.0 Chloride 102 107 Carbon Dioxide 21 L 24 BUN 12 11 Creatinine 0.90 0.81 Calcium 9.4 8.4 D Liver Function 09/13/22 Range/Units 17:08 Total Bilirubin 1.0 (0.0-1.0) mg/dL Direct Bilirubin 0.4 (0.0-0.5) mg/dL AST 18 (5-31) U/L ALT 10 (0-31) U/L Alkaline Phosphatase 85 (39-117) U/L Albumin 4.0 (3.5-5.0) g/dL Urine 09/13/22 Range/Units 19:59 Urine Color Dark Yellow Urine Appearance Clear Urine pH 5.5 (5.0-9.0) Ur Specific [place] >= 1.030 H (1.005-1.025) Urine Protein 30 (1+) H (Neg-Trace) mg/dL Urine Glucose (UA) Negative (Negative) mg/dL Assessment and Plan (1) Diverticulitis: Status: Acute (2) Systemic lupus erythematosus: Qualifiers: Systemic lupus erythematosus type: other Systemic lupus erythematosus organ involvement: unspecified Qualified Code(s): M32.8 - Other forms of systemic lupus erythematosus Status: Acute (3) COPD (chronic obstructive pulmonary disease): Status: Acute Plan 57-year-old female patient admitted with abdominal pain in the left lower quadrant found to have sigmoid diverticulitis with mesenteric abscess. Patient's WBC is normal. Recommended several days of IV antibiotic with conversion to oral antibiotics once symptoms have improved. Hospitalist consultation requested for management of patient's COPD and lupus. Patient expressed understanding and agrees with the plan. Time Spent With Patient Time: Total time managing care of this patient today ____ minutes. Quality Stroke Does the patient have a stroke diagnosis?: No VTE Prior VTE?: No VTE Risk Level:: Surgical - moderate VTE Device Contraindication: N/A - Device Ordered VTE Drug Contraindication: N/A - Med Ordered Procedures Date of Service Date of Service: 09/14/22
[2022-09-14] MEDS: Heparin Sodium,Porcine 5,000 UNIT/ML VIAL 5000 UNIT SUBCUT ×2 (07:35→19:48)
--- NOTE | 2022-09-14 09:40 | MHC.CM.PN ---
IMM DELIVERED LIVES WITH S/O IN AN APT/ HAS 2 HOURS OF PASTING MACHINE OPERATOR ASSIST DAILY. INDEPENDENT AT BASELINE. STATES HAS HCP ON FILE HERE BUT IF UNABLE TO LOCATE, WILLING TO DO ANOTHER. COVID VAX X [address] LEWIS. DP: HOME WITH NO SERVICES ANTICIPATED. WILL RESUME PASTING MACHINE OPERATOR HOURS. FRIEND TO TRANSPORT HOME ON DC. CM WILL CONTINUE TO FOLLOW.
[2022-09-14] MEDS: Famotidine 20 MG TABLET PO (12:47)
--- NOTE | 2022-09-14 14:20 | P.CONHOSP_ITS ---
History of Present Illness Data of Consult Service Date: 09/14/22 Primary Care Provider: Marjan Sams MD [facility] Reason for consult: Management of COPD, lupus Pt is a 57-year-old female with a PMH significant for?diverticulitis, lupus, COPD, and asthma who presented to the ED complaining of left lower quadrant pa in, nausea, vomiting, anorexia since Sunday. CT of abdomen pelvis found severe diverticulitis of the proximal sigmoid colon and probable intramural abscess with no evidence of obstruction or free air. Patient was admitted to the hospital under care of General surgery, placed on bowel rest, and treated with antibiotics. Medical consult for management of COPD lupus. Patient seen and evaluated in her room, sitting comfortably in a chair. Patient complains of central and left-sided abdominal pain, but has no other complaints. Denies fever, chills, nausea, vomiting, diarrhea. No chest pain/pressure, palpitations. No difficulty breathing, shortness of breath. Review of Systems Review of Systems: Central and left-sided abdominal pain Denies chest pain/pressure, palpitations No SOB Denies fever, chills, nausea, vomitng, diarrhea Yes all other systems are reviewed and are negative [facility] Medical History Asthma COPD (chronic obstructive pulmonary disease) Obstructive sleep apnea Smoker Systemic lupus erythematosus Family History Mother Breast cancer Social History Household Members: Significant Other Housing: Apartment Do you presently have visiting nurse or other home services: No Alcohol intake: current Alcohol intake frequency: a few times a week Alcohol type: hard liquor Patient Tobacco Use Status: Current everyday Tobacco user Tobacco use type: Cigarette Cigarette Packs Per Day: 0.5 Cigarettes Per Day: 10.0 Years Smoked: since age 15 Smoked in Last 30 Days: Yes Patient Interested in Nicotine Replacement: No Patient Given Instructions on How to Stop Smoking: No Second Hand Smoke Exposure: No Use of substances other than those prescribed or required for medical reasons: No Currently Displaying Signs/Symptoms of Drug Intoxication Withdrawal: No Any prior treatment program specific to substance use: No Have you been hit, kicked, punched, or otherwise hurt by someone within the past year? If so, by whom?: No Do you feel safe in your current relationship?: Yes Is there a partner from a previous relationship who is making you feel unsafe now?: No Advance Directives: No Advance Directives Information Provided: No Advance Directives on File: Yes Do you have thoughts of harming others: None Do you have a plan to hurt others: No Plan Recently lost weight without trying: No Eating poorly because of decreased appetite: No Nutrition Risks: No Nutritional Risk Patient : No : No Poor oral hygiene: No service: No Current occupational status: disabled Meds Allergies Allergy/AdvReac Type Severity Reaction Status Date / Time No Known Allergies Allergy Verified 09/13/22 16:18 Active Medications: Current Medications Famotidine (Famotidine 20 Mg Tablet) 20 mg PO DAILY [facility] Last Admin: 09/14/22 12:47 Dose: 20 mg Heparin Sodium (Porcine) (Heparin Sodium,Porcine 5,000 Unit/Ml Vial) 5,000 unit SUBCUT Q12H [facility] Last Admin: 09/14/22 07:35 Dose: 5,000 unit Hydromorphone HCl (Hydromorphone Hcl 0.5 Mg/0.5 Ml Syringe) 0.5 mg IVPUSH Q3H PRN; Protocol PRN Reason: Pain, Severe (Pain Scale 7-10) Dextrose/Lactated Ringer's (D5lr) 1,000 mls @ 125 mls/hr IVCONT .Q8H [facility] Last Admin: 09/14/22 13:56 Dose: 125 mls/hr Acetaminophen (Ofirmev) 1,000 mg in 100 mls @ 400 mls/hr IV Q6H [facility] Stop: 09/14/22 15:14 Last Infusion: 09/14/22 09:59 Dose: Infused Piperacillin Sod/Tazobactam (Sod 3.375 gm/ Sodium Chloride) 50 mls @ 100 mls/hr IV Q6H [facility] Last Admin: 09/14/22 13:56 Dose: 100 mls/hr Ondansetron HCl (Ondansetron Hcl 4 Mg/2 Ml Vial) 4 mg IVPUSH Q8H PRN PRN Reason: Nausea Oxycodone HCl (Oxycodone Hcl Immed Release 5 Mg Tablet) 5 mg PO Q4H PRN PRN Reason: Pain, Moderate (Pain Scale 4-6 Last Admin: 09/14/22 12:47 Dose: 5 mg Pharmacy Consult (Consult Rx Perform Med Rec) 1 each MISCELLANE ONCE PRN PRN Reason: Consult order Sodium Chloride (0.9 % Sodium Chloride Flush 3 Ml Syringe) 3 ml IVFLUSH QSHIFT [facility] Last Admin: 09/14/22 07:36 Dose: Not Given Zolpidem Tartrate (Zolpidem Tartrate 5 Mg Tablet) 5 mg PO BEDTIME PRN PRN Reason: Insomnia Home Medications Medication Instructions Recorded Confirmed Last Taken Type aspirin 81 mg tablet,delayed 81 mg PO DAILY 03/19/20 09/13/22 Unknown History release (Adult Low Dose Aspirin) fluticasone furoate 200 1 inh inhalation DAILY 03/19/20 09/13/22 Unknown History mcg-vilanterol 25 mcg/dose inhalation powder (Breo Ellipta) hydroxychloroquine 200 mg tablet 400 mg PO DAILY 03/19/20 09/13/22 Unknown History (Plaquenil) oxycodone-acetaminophen 5 mg-325 1 tab PO Q12H PRN Pain 03/19/20 09/13/22 Unknown History mg tablet (Percocet) amoxicillin 875 mg-potassium 1 tab PO BID 09/13/22 09/13/22 Unknown History clavulanate 125 mg tablet levalbuterol HCl 1.25 mg/3 mL 1.25 mg inhalation Q4H PRN 09/13/22 09/13/22 Unknown History solution for nebulization Respiratory Distress Physical Exam Vital Signs and Narrative: Vital Signs: Last Vital Signs Temp 97.9 F 09/14/22 07:05 Pulse 56 09/14/22 07:05 Resp 18 09/14/22 07:05 BP 146/68 H 09/14/22 07:05 Pulse Ox 96 09/14/22 07:05 O2 Del Method Room Air 09/14/22 07:05 BMI result Body Mass Index 29.5 General: AOx3, no acute distress Resp: CTA bilaterally CVS: S1, S2, RRR GI: +BS, diffusely tender in epigastric region and left-side, no distention Skin: No rash Neuro: Cranial nerves II-XII grossly intact bilaterally. Motor grossly intact bilaterally Extremities: No edema Psych: Appropriate affect Results Labs 09/14/22 05:00 09/14/22 05:00 Labs: Laboratory Results - last 24 hr 09/13/22 09/13/22 09/13/22 17:08 17:08 17:08 MCV 86.4 MCH 28.5 MCHC 33.0 RDW 16.5 H Plt Count 266 MPV 9.7 Immature Gran % (Auto) 0.2 Neut % (Auto) 66.6 Lymph % (Auto) 29.0 [place] % (Auto) 4.0 Eos % (Auto) 0.0 Baso % (Auto) 0.2 Lymph # (Auto) 1.7 [place] # (Auto) 0.2 Eos # (Auto) 0.0 Baso # (Auto) 0.0 Abs Immat Gran (auto) 0.01 Absolute Neuts (auto) 4.0 Absolute Nucleated RBC 0.000 Nucleated RBC % (auto) 0.0 Smear Tech's Comments Anion Gap 19 Estim Creat Clear Calc 65.4 Estimated GFR > 60 Random Glucose 75 Lactic Acid 1.2 Calcium 9.4 Total Bilirubin 1.0 Direct Bilirubin 0.4 AST 18 ALT 10 Alkaline Phosphatase 85 Total Protein 8.3 H Albumin 4.0 Beta HCG, Quant 3 Urine Color Urine Appearance Urine pH Ur Specific [place] Urine Protein Urine Glucose (UA) Urine Ketones Urine Blood Urine Nitrite Ur Leukocyte Esterase Urine RBC Urine WBC Ur Squamous Epith Cells Urine Bacteria Hyaline Casts 09/13/22 09/14/22 09/14/22 19:59 05:00 05:00 MCV 87.1 MCH 28.6 MCHC 32.8 RDW 16.7 H Plt Count 199 D MPV 9.5 Immature Gran % (Auto) 0.2 Neut % (Auto) 60.2 Lymph % (Auto) 32.2 [place] % (Auto) 7.2 Eos % (Auto) 0.0 Baso % (Auto) 0.2 Lymph # (Auto) 1.3 [place] # (Auto) 0.3 Eos # (Auto) 0.0 Baso # (Auto) 0.0 Abs Immat Gran (auto) 0.01 Absolute Neuts (auto) 2.5 Absolute Nucleated RBC 0.000 Nucleated RBC % (auto) 0.0 Smear Tech's Comments VERIFIED Anion Gap 13 Estim Creat Clear Calc 72.7 Estimated GFR > 60 Random Glucose 95 Lactic Acid Calcium 8.4 D Total Bilirubin Direct Bilirubin AST ALT Alkaline Phosphatase Total Protein Albumin Beta HCG, Quant Urine Color Dark Yellow Urine Appearance Clear Urine pH 5.5 Ur Specific [place] >= 1.030 H Urine Protein 30 (1+) H Urine Glucose (UA) Negative Urine Ketones Trace Urine Blood Trace H Urine Nitrite Negative Ur Leukocyte Esterase Trace H Urine RBC 3-5 H Urine WBC 0-5 Ur Squamous Epith Cells 6-10 Urine Bacteria None Seen Hyaline Casts 3-5 Assessment and Plan (1) Diverticulitis: Status: Acute Plan Pt is a 57-year-old female with a PMH significant for?diverticulitis, lupus, COPD, and asthma who presented to the ED complaining of left lower quadrant pain, nausea, vomiting, anorexia since Sunday. CT of abdomen pelvis found severe diverticulitis of the proximal sigmoid colon and probable intramural abscess with no evidence of obstruction or free air. Patient was admitted to the hospital under care of General surgery, placed on bowel rest, and treated with antibiotics. Medical consult for management of COPD lupus. Acute diverticulitis Plan as per general surgery COPD Not in acute exacerbation Continue home inhalers Lupus Not in acute flare-up Continue hydroxychloroquine Thank you for allowing us to participate in the care of this patient. Signing off at this time, pt's COPD and lupus currently stable. Please let us know if any acute complaints or questions do arise. Time Spent With Patient Time: Total time managing care of this patient today ____ minutes.
[2022-09-14 15:09] VITALS: BP 108/52; PULSE 54; RESP 18; TEMP 36.1; O2SAT 95
[2022-09-14] MEDS: Hydroxychloroquine Sulfate 200 MG TABLET 400 MG PO (17:10)
[2022-09-14 20:00] VITALS: BP 166/80; PULSE 69; RESP 18; TEMP 36.2; O2SAT 93
[2022-09-14] MEDS: HYDROmorphone HCl 0.5 MG/0.5 ML SYRINGE IVPUSH ×2 (20:14→23:50)
[2022-09-14 23:33] VITALS: BP 179/84; PULSE 71; RESP 16; TEMP 36.3; O2SAT 95
[2022-09-15] MEDS: Piperacillin Sodium/Tazobactam 3.375 GM in 0.9 % Sodium Chloride 50 ML IV ×4 (02:00→20:19)
[2022-09-15] MEDS: HYDROmorphone HCl 0.5 MG/0.5 ML SYRINGE IVPUSH ×3 (03:00→11:12)
[2022-09-15 03:23] VITALS: BP 138/66; PULSE 70; RESP 16; TEMP 36; O2SAT 93
[2022-09-15] MEDS: Dextrose 5 % and Lactated Ring 1,000 ML 125 ML IVCONT (04:56)
[2022-09-15 07:25] VITALS: BP 163/77; PULSE 72; RESP 18; TEMP 36.1; O2SAT 95
--- NOTE | 2022-09-15 07:56 | PM.PNGS ---
Subjective Subjective Date of Service: 09/15/22 Interval history: Overall feels improved however still has some waves of increased pain. Reports passing flatus but no bowel movement. Tolerated a low residue diet yesterday (was given salad). Physical Exam Vital Signs: Vital Signs: Last Vital Signs Temp 96.9 F 09/15/22 07:25 Pulse 72 09/15/22 07:25 Resp 18 09/15/22 07:25 BP 163/77 H 09/15/22 07:25 Pulse Ox 95 09/15/22 07:25 O2 Del Method Room Air 09/15/22 07:25 BMI result Body Mass Index 29.5 Const: General: healthy appearing and no acute distress Nutritional Appearance: well nourished Orientation/consciousness: patient oriented x3 Limitations: no limitations Resp: Other: Breathing comfortably on room air, no respiratory distress GI: Other: Soft, mild tenderness to deep palpation in the left lower quadrant, no rebound, guarding or rigidity. Skin: Other: Warm, dry, no rash, normal color Neuro: General: patient oriented x3 Extrem: Other: No peripheral edema Objective Data Active Medications Albuterol Sulfate (Albuterol Sulfate 90 Mcg 8 Gm Inhaler) 1 puff INHALE RQID PRN PRN Reason: shortness of breath or wheezing Aspirin (Aspirin Enteric Coated 81 Mg Tablet.Dr) 81 mg PO DAILY [facility] Famotidine (Famotidine 20 Mg Tablet) 20 mg PO DAILY [facility] Last Admin: 09/14/22 12:47 Dose: 20 mg Documented By: MACARIO Fluticasone/Vilanterol (Fluticasone/Vilanterol 200/25 Blst.W.Dev) 1 puff INHALE DAILY [facility] Last Admin: 09/14/22 19:39 Dose: Not Given Documented By: ROSAURA Non-Admin Reason: Med Not Available Heparin Sodium (Porcine) (Heparin Sodium,Porcine 5,000 Unit/Ml Vial) 5,000 unit SUBCUT Q12H [facility] Last Admin: 09/14/22 19:48 Dose: 5,000 unit Documented By: YASSINE Hydromorphone HCl (Hydromorphone Hcl 0.5 Mg/0.5 Ml Syringe) 0.5 mg IVPUSH Q3H PRN; Protocol PRN Reason: Pain, Severe (Pain Scale 7-10) Last Admin: 09/15/22 06:29 Dose: 0.5 mg Documented By: CORINNE Hydroxychloroquine Sulfate (Hydroxychloroquine Sulfate 200 Mg Tablet) 400 mg PO DAILY [facility] Last Admin: 09/14/22 17:10 Dose: 400 mg Documented By: YASSINE Piperacillin Sod/Tazobactam (Sod 3.375 gm/ Sodium Chloride) 50 mls @ 100 mls/hr IV Q6H [facility] Last Infusion: 09/15/22 02:31 Dose: 0 mls/hr Documented By: CORINNE Levalbuterol HCl (Levalbuterol Hcl 1.25 Mg/3 Ml Vial.Neb) 1.25 mg INHALE RQ4H PRN PRN Reason: Respiratory Distress Ondansetron HCl (Ondansetron Hcl 4 Mg/2 Ml Vial) 4 mg IVPUSH Q8H PRN PRN Reason: Nausea Oxycodone HCl (Oxycodone Hcl Immed Release 5 Mg Tablet) 5 mg PO Q4H PRN PRN Reason: Pain, Moderate (Pain Scale 4-6 Last Admin: 09/14/22 18:19 Dose: 5 mg Documented By: YASSINE Pharmacy Consult (Consult Rx Perform Med Rec) 1 each MISCELLANE ONCE PRN PRN Reason: Consult order Sodium Chloride (0.9 % Sodium Chloride Flush 3 Ml Syringe) 3 ml IVFLUSH QSHIFT [facility] Last Admin: 09/14/22 23:55 Dose: 3 ml Documented By: CORINNE Zolpidem Tartrate (Zolpidem Tartrate 5 Mg Tablet) 5 mg PO BEDTIME PRN PRN Reason: Insomnia Labs 09/14/22 05:00 09/14/22 05:00 Microbiology Microbiology Results: Microbiology 09/13/22 19:59 Blood Culture - Preliminary Blood - Venous No growth after 24 hours. 09/13/22 17:08 Blood Culture - Preliminary Blood - Venous No growth after 24 hours. Procedures Date of Service Date of Service: 09/15/22 Progress Note: A&P Assessment and plan (1) Diverticulitis: Status: Acute Plan Hospital day 2 admitted for acute sigmoid diverticulitis with mesenteric abscess. Overall the patient is improved with decreased abdominal pain. She continues to have ways of increased pain consistent with colic. WBC normal yesterday. Will continue antibiotics for 1 more day and then converted to oral. Stop IV fluids. Time Spent With Patient Time: Total time managing care of this patient today ____ minutes. Quality Stroke Does the patient have a stroke diagnosis?: No VTE Prior VTE?: No VTE Risk Level:: Surgical - moderate VTE Device Contraindication: N/A - Device Ordered VTE Drug Contraindication: N/A - Med Ordered
[2022-09-15] MEDS: Hydroxychloroquine Sulfate 200 MG TABLET 400 MG PO (08:33)
[2022-09-15] MEDS: Aspirin Enteric Coated 81 MG TABLET.DR PO (08:33)
[2022-09-15] MEDS: Famotidine 20 MG TABLET PO (08:33)
[2022-09-15] MEDS: Heparin Sodium,Porcine 5,000 UNIT/ML VIAL 5000 UNIT SUBCUT ×2 (08:33→20:20)
--- NOTE | 2022-09-15 12:55 | MHC.CM.PN ---
EMR REVIEWED AND PER MD ROUNDS, PT NOT MEDICALLY CLEARED FOR DC (1 MORE DAY OF IV ABT, MONITOR GI) CM WILL CONTINUE TO FOLLOW.
[2022-09-15] MEDS: 0.9 % Sodium Chloride Flush 3 ML SYRINGE IVFLUSH ×2 (15:05→23:37)
--- NOTE | 2022-09-15 15:05 | PC.NURSE ---
PT OBSERVED AMBULATING AROUND THE UNIT. AT 1400 IT WAS NOTED THAT PT LEFT THE UNIT. [employer]ONDA[employer] MACHINE OPERATOR SENT OUTSIDE TO LOOK FOR PT. SECURITY CALLED, HOWEVER PT RETURNED ON HER OWN APPARENTLY WENT OUT FOR CIGARETTE. PT EDUCATED ON SMOKING. OFFERED NICOTINE PATCH.
[2022-09-15] MEDS: oxyCODONE HCl Immed Release 5 MG TABLET PO ×2 (15:10→19:16)
[2022-09-15 15:22] VITALS: BP 116/66; PULSE 98; RESP 20; TEMP 35.9; O2SAT 98
[2022-09-15 19:27] VITALS: BP 99/58; PULSE 78; RESP 20; TEMP 36.7; O2SAT 97
[2022-09-15 23:41] VITALS: BP 128/62; PULSE 53; RESP 18; TEMP 36.9; O2SAT 96
[2022-09-16] MEDS: HYDROmorphone HCl 0.5 MG/0.5 ML SYRINGE IVPUSH (01:26)
[2022-09-16] MEDS: Piperacillin Sodium/Tazobactam 3.375 GM in 0.9 % Sodium Chloride 50 ML IV ×2 (01:26→08:55)
[2022-09-16 03:23] VITALS: BP 99/55; PULSE 85; RESP 18; TEMP 36.1; O2SAT 97
[2022-09-16] MEDS: oxyCODONE HCl Immed Release 5 MG TABLET PO ×2 (06:51→11:19)
[2022-09-16 07:29] VITALS: BP 141/89; PULSE 66; RESP 18; TEMP 36.6; O2SAT 95
[2022-09-16] MEDS: Aspirin Enteric Coated 81 MG TABLET.DR PO (08:54)
[2022-09-16] MEDS: Famotidine 20 MG TABLET PO (08:54)
[2022-09-16] MEDS: 0.9 % Sodium Chloride Flush 3 ML SYRINGE IVFLUSH (08:55)
[2022-09-16] MEDS: Hydroxychloroquine Sulfate 200 MG TABLET 400 MG PO (08:55)
[2022-09-16] MEDS: Heparin Sodium,Porcine 5,000 UNIT/ML VIAL 5000 UNIT SUBCUT (08:55)
--- NOTE | 2022-09-16 10:40 | PM.PNGS ---
Subjective Subjective Date of Service: 09/16/22 Patient reports: no new complaints, feels better, tolerating a regular diet, flatus and bowel movement Interval history: The patient is seen in coverage for Dr. Landers She reports that she is anxious to be discharged. Her abdominal pain has resolved and she tolerated her regular diet. She had a normal bowel movement. She does note that it has been over 5 years since her colonoscopy. She otherwise denies any pain in her chest, trouble breathing or new complaints. Physical Exam Vital Signs: Vital Signs: Last Vital Signs Temp 97.9 F 09/16/22 07:29 Pulse 66 09/16/22 07:29 Resp 18 09/16/22 07:29 BP 141/89 H 09/16/22 07:29 Pulse Ox 95 09/16/22 07:29 O2 Del Method Room Air 09/16/22 07:29 BMI result Body Mass Index 29.5 On exam she is nontoxic and in good spirits Sclera are anicteric She is in no acute respiratory distress Her abdomen is overweight but soft with no localizing tenderness. No peritoneal sign is noted Objective Data Active Medications Albuterol Sulfate (Albuterol Sulfate 90 Mcg 8 Gm Inhaler) 1 puff INHALE RQID PRN PRN Reason: shortness of breath or wheezing Aspirin (Aspirin Enteric Coated 81 Mg Tablet.) 81 mg PO DAILY [facility] Last Admin: 09/16/22 08:54 Dose: 81 mg Documented By: SHWETA Famotidine (Famotidine 20 Mg Tablet) 20 mg PO DAILY [facility] Last Admin: 09/16/22 08:54 Dose: 20 mg Documented By: SHWETA Fluticasone/Vilanterol (Fluticasone/Vilanterol 200/25 Blst.W.Dev) 1 puff INHALE DAILY [facility] Last Admin: 09/15/22 08:11 Dose: Not Given Documented By: RAFAEL Non-Admin Reason: Med Not Available Heparin Sodium (Porcine) (Heparin Sodium,Porcine 5,000 Unit/Ml Vial) 5,000 unit SUBCUT Q12H [facility] Last Admin: 09/16/22 08:55 Dose: 5,000 unit Documented By: SHWETA Hydromorphone HCl (Hydromorphone Hcl 0.5 Mg/0.5 Ml Syringe) 0.5 mg IVPUSH Q3H PRN; Protocol PRN Reason: Pain, Severe (Pain Scale 7-10) Last Admin: 09/16/22 01:26 Dose: 0.5 mg Documented By: KENNA Hydroxychloroquine Sulfate (Hydroxychloroquine Sulfate 200 Mg Tablet) 400 mg PO DAILY [facility] Last Admin: 09/16/22 08:55 Dose: 400 mg Documented By: SHWETA Piperacillin Sod/Tazobactam (Sod 3.375 gm/ Sodium Chloride) 50 mls @ 100 mls/hr IV Q6H [facility] Last Admin: 09/16/22 08:55 Dose: 100 mls/hr Documented By: SHWETA Levalbuterol HCl (Levalbuterol Hcl 1.25 Mg/3 Ml Vial.Neb) 1.25 mg INHALE RQ4H PRN PRN Reason: Respiratory Distress Ondansetron HCl (Ondansetron Hcl 4 Mg/2 Ml Vial) 4 mg IVPUSH Q8H PRN PRN Reason: Nausea Oxycodone HCl (Oxycodone Hcl Immed Release 5 Mg Tablet) 5 mg PO Q4H PRN PRN Reason: Pain, Moderate (Pain Scale 4-6 Last Admin: 09/16/22 06:51 Dose: 5 mg Documented By: KENNA Pharmacy Consult (Consult Rx Perform Med Rec) 1 each MISCELLANE ONCE PRN PRN Reason: Consult order Sodium Chloride (0.9 % Sodium Chloride Flush 3 Ml Syringe) 3 ml IVFLUSH QSHIFT [facility] Last Admin: 09/16/22 08:55 Dose: 3 ml Documented By: SHWETA Zolpidem Tartrate (Zolpidem Tartrate 5 Mg Tablet) 5 mg PO BEDTIME PRN PRN Reason: Insomnia Labs 09/14/22 05:00 09/14/22 05:00 Microbiology Microbiology Results: Microbiology 09/13/22 19:59 Blood Culture - Preliminary Blood - Venous No growth after 48 hours. 09/13/22 17:08 Blood Culture - Preliminary Blood - Venous No growth after 48 hours. Procedures Date of Service Date of Service: 09/16/22 Progress Note: A&P Assessment and plan (1) Diverticulitis: Status: Acute (2) Smoker: Status: Acute (3) COPD (chronic obstructive pulmonary disease): Status: Acute (4) Asthma: Status: Acute (5) Obstructive sleep apnea: Status: Acute Plan The patient appears stable for discharge. The importance of follow-up colonoscopy to exclude malignancy was discussed with the patient she verbalized understanding. Dietary suggestions were reviewed. Patient will follow-up with her PCP and Dr. Landers. Time Spent With Patient Time: Total time managing care of this patient today ____ minutes. Quality Stroke Does the patient have a stroke diagnosis?: No VTE Prior VTE?: No VTE Risk Level:: Surgical - moderate VTE Device Contraindication: N/A - Device Ordered VTE Drug Contraindication: N/A - Med Ordered
--- NOTE | 2022-09-16 12:35 | MHC.CM.PN ---
pt dcd home no skilled servcies
--- NOTE | 2022-09-19 10:08 | PM.DS ---
DS: Providers Provider Date of Service: 09/16/22 Date of admission: 09/13/22 20:48 Date of discharge: 09/16/22 Primary care physician: Marjan Sams MD Attending physician on admission: Trae Landers Consults: 09/13/22 20:52 Consult to Hospitalist Routine Comment: Consulting Provider: Hospitalist Reason For Exam: COPD, Diverticulitis, med management DS: Diagnosis Discharge Diagnosis (1) Diverticulitis: Status: Acute (2) Smoker: Status: Acute (3) COPD (chronic obstructive pulmonary disease): Status: Acute (4) Asthma: Status: Acute (5) Obstructive sleep apnea: Status: Acute DS: Summary Hospital Course Hospital Course: HPI AT ADMISSION: Tammy Moeller is a 57 year old femalePresenting with complaints of abdominal pain in the left lower quadrant. Pain began last Sunday who has persisted mainly in the left lower and right lower quadrants. She denies a previous history of similar pain. Her last bowel movement was yesterday afternoon however she reports being very constipated . She denies fever, chills, nausea or vomiting. She denies a previous history of abdominal surgery. Past history is significant for lupus and COPD. She presented to the emergency department was noted to have a normal WBC. CT of the abdomen and pelvis however revealed evidence of acute sigmoid diverticulitis with an mesenteric abscess. There is no evidence of free air or intraperitoneal fluid collections. HOSPITAL COURSE: Patient was admitted to the surgical service for management of this acute sigmoid diverticulitis. Conservative measures were continued with course of several days of IV antibiotic with conversion to oral antibiotics once symptoms have improved.? Hospitalist consultation was requested for management of patient's COPD and lupus. She improved clinically with supportive measures. Her diet was slowly advanced as tolerated to clear liquids and then low residue. Her abdominal pain and tenderness resolved. On the day of discharge, she was tolerating a low residue diet without any abdominal pain, nausea or vomiting and had a benign abd exam. She felt ready for discharge. She was discharged to home on 09/16/22 in stable condition. She is to complete her course of previous prescribed Augmentin. She is to follow up in the office with Dr. Landers. Status at Discharge Functional status at discharge: independent ambulation Overall status at discharge: patient is back to baseline Time Spent with Patient Time attestation: Total time managing care of this patient today ____ minutes. Discharge coordination time: Less than 30 minutes Quality: Safe Use of Opioids Does Pt have an Active Cancer Diagnosis on the Problem List?: No Quality: Stroke Does the patient have a stroke diagnosis?: No Physical Exam Vital Signs: Vital Signs: Last Vital Signs Temp 97.9 F 09/16/22 07:29 Pulse 66 09/16/22 07:29 Resp 18 09/16/22 07:29 BP 141/89 H 09/16/22 07:29 Pulse Ox 95 09/16/22 07:29 O2 Del Method Room Air 09/16/22 07:29 BMI result Body Mass Index 29.5 Const: General: comfortable, no acute distress and alert Orientation/consciousness: patient oriented x3 Resp: Effort & Inspection: normal respiratory effort GI: Inspection: No distended Palpation (GI): Soft to palpation and nontender Neuro: General: patient oriented x3 Discharge Plan Discharge Anticipated Discharge Date/Time: 09/16/22 08:14 Patient Disposition: Home, Self-Care Discharge Diagnosis: acute diverticulitis Referrals: Marjan Sams MD [Primary Care Provider] - 1 Week Trae Landers MD [Physician] - 1 Week Discharge Medications: New docusate sodium [Colace] 100 mg capsule 100 mg PO BID PRN (Reason: constipation) Qty: 30 0RF Continued albuterol sulfate 90 mcg/actuation HFA aerosol inhaler 1 inh inhalation QID PRN (Reason: shortness of breath or wheezing) Qty: 8.5 0RF amoxicillin-pot clavulanate 875-125 mg tablet 1 tab PO BID Rx Instructions: PATIENT HAS TAKEN 3 DOSES ONLY levalbuterol HCl 1.25 mg/3 mL Solution For Nebulization 1.25 mg INHALATION Q4H PRN (Reason: Respiratory Distress) hydroxychloroquine [Plaquenil] 200 mg tablet 400 mg PO DAILY oxycodone-acetaminophen [Percocet] 5-325 mg tablet 1 tab PO Q12H PRN (Reason: Pain) aspirin [Adult Low Dose Aspirin] 81 mg tablet,delayed release (DR/EC) 81 mg PO DAILY Breo Ellipta 200-25 mcg/dose blister with device 1 inh inhalation DAILY Discharge Orders: Discharge Order (Routine); Ordered 09/16/22 Ordered By: Jefferson S Walko Diet: low residue Activity on Discharge: As tolerated Stand Alone Forms: Patient Portal Discharge page Activity Restrictions/Additional Instructions: Follow up in office in a week. ([phone]) Finish your course of Augmentin. Call Your Doctor If: ? ? -Your temperature exceeds 101.5? F? ? ? -You experience excessive pain or swelling ? ? -You have an unexpected reaction to medication ? ? -You experience continued vomiting/nausea Care Plan Goals: Resolution of diverticulitis. Return to baseline health and resume normal activities. Health Concerns: SLE acute sigmoid diverticulitis Plan of Treatment: bowel rest IV transitioned to PO abx Assessment: Improved Patient Instructions: Diverticulitis (ED), Low Fiber Diet (DC) Discharge Date/Time: 09/16/22 12:55
== END 2022-09-16 12:55 | disposition home or self-care (01) | DRG 392 ==
LOC: HO.ED 21:54 → HO.EDOVER 21:58 → HO.S3 22:49
PROVIDERS: Nurse Practitioner Family; Physician Assistant; Admitting Provider Surgery; Emergency Provider Emergency Medicine; PCP Family Medicine; Visit Provider Surgery
DX: K57.20 Diverticulitis of large intestine with perforation and abscess without bleeding (principal); G47.33 Obstructive sleep apnea (adult) (pediatric); M32.9 Systemic lupus erythematosus, unspecified; F17.210 Nicotine dependence, cigarettes, uncomplicated; Z71.6 Tobacco abuse counseling; Z79.51 Long term (current) use of inhaled steroids; Z79.82 Long term (current) use of aspirin; Z79.899 Other long term (current) drug therapy
CPT/HCPCS: 36415; 74177; 80048; 80076; 81001; 83605; 84702; 85025; 86140; 87040; 99285; J0131; J1170; J1643; J2270; J2405; J2543; Q9967

== ENCOUNTER 2023-01-17 10:55 | Outpatient (REF) | payer MEDICARE, SELFPAY ==
--- NOTE | ~2023-01-17 | MM_ITS ---
EXAMINATION: MM DIAGNOSTIC DIGITAL BREAST TOMOSYNTHESIS, BILATERAL CLINICAL INFORMATION: Six-month follow-up right breast calcifications. Patient also due for routine bilateral screening mammography. The lifetime risk of breast cancer based on the Tyrer-Cuzick Model is 12%. COMPARISON: Mammography: 05/09/2022, 11/07/2021, 10/21/2021, 12/23/2019, and dating back to 2017. TECHNIQUE: Digital breast tomosynthesis is performed in both the craniocaudal and mediolateral oblique views along with computer-aided detection (CAD). Synthesized 2D images are generated from the tomosynthesis. In addition, 2-D spot magnification CC and ML views were performed of the right breast. FINDINGS: There are scattered areas of fibroglandular density (ACR BI-RADS breast composition Category b). The somewhat coarsened grouped calcifications in the slightly upper, lateral right breast, middle one third, appear stable without suspicious changes. There is stable in morphology and number. There is a subtle underlying density which may relate to a degenerating fibroadenoma. These remain probably benign. Six-month interval follow-up right breast spot magnification views recommended to ensure stability. Parenchymal pattern is similar to prior exams. There is no significant mass or architectural abnormality or developing density. There is a stable circumscribed mass anterior 9:00 right breast. There are bilateral vascular calcifications. Results are provided to the patient at time of visit by the technologist. MM/MM tomosynthesis diagnostic BI IMPRESSION: Probably benign grouped calcifications upper outer right breast as detailed, remains stable without aggressive changes, for which additional six-month follow-up magnification views recommended, as a precaution. No suspicious abnormality in the left breast. ASSESSMENT: BI-RADS BI-RADS 3 - Probably benign finding(s) - 6 month follow-up suggested RECOMMENDATION: 6 Month F/U This patient's information was entered into a reminder system with a target due date for their next mammogram.
== END 2023-01-17 10:56 | disposition home or self-care (01) ==
LOC: HO.MAMMO 10:55
PROVIDERS: PCP Family Medicine; Visit Provider Family Medicine
DX: R92.1 Mammographic calcification found on diagnostic imaging of breast (principal)
CPT/HCPCS: 77062; 77066

== ENCOUNTER → 2023-01-17 11:00 | Outpatient (BNV) | payer MEDICARE, SELFPAY | PROVIDERS: PCP Family Medicine; Visit Provider Radiology Diagnostic Radiology | DX: R92.1 Mammographic calcification found on diagnostic imaging of breast (principal) | CPT/HCPCS: 77062; 77066 ==

== ENCOUNTER 2023-08-08 08:29 | Outpatient (AMB) | payer MEDICARE, SELFPAY ==
--- NOTE | 2023-08-08 08:30 | MHC.OFFVIS ---
Intake Vital Signs 08/08/23 08:33 Height 5 ft 2 in Weight 170 lb 3.15 oz BMI 31.1 BP 144/80 H Blood Pressure Location Rt brachial Position Sitting Intake Visit Reasons: Systemic lupus erythematosus Intake Note: Pt last seen by Dr Wise 12/16/20, presents today for consult. Taking plaquenil 2 pills daily, but ran out. Her last dose was this morning. Has pain in knees, worse when walking. 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 She was last seen by Dr. Wise 12/2020. This is her 1st visit with me. She was last seen by Dr. Walsh at the [facility]. She states that she took her last 2 tablets of hydroxychloroquine today and needs a refill. She states that she is doing well overall. No recent lupus flares. She states that 3 months ago she had a flare-up of lupus with arthritis and she took prednisone for 1-2 days with relief. She could not specify her SLE manifestations. But she states that she would have joint pains. Today she is having some left knee pain that she believes is due to more walking today. Most recent history by Dr. Wise 12/2020: Pt does not know what the initial presentation for her Lupus was. She has a positive URIAH, chronically elevated DsDNA and positive Sm/[employer]. Her clinical manifestations have included intermittant leukopenia, oral ulcers and bilateral elbow arthritis. The oral ulcers improved on Cellcept. In the past, she has failed Benlysta infusions. She has also been on MTX which was switched to Cellcept for oral ulcers. Off of Cellcept now. Had a flare of her lupus in September 2018. Her flare presented as worsening arthralgias. Patient was hospitalized at [facility] for this. On Plaquenil b.i.d.. Previously on prednisone 5 mg daily, now uses as needed. Patients lupus continues to be well controlled. Denies any recent flares. No rashes, ulcers fevers. Up-to-date with Ophthalmology monitoring. Patient knows when her lupus is going flare based on constitutional symptoms such as malaise and joint swelling so she will take one 5mg tablet of Prednisone to prevent progression to a full blown flare that has required hospitalization in the past. She has not had to use any Prednisone since her last visit. [facility] Medical History Right femoral vein DVT Smoker COPD (chronic obstructive pulmonary disease) Asthma Obstructive sleep apnea Systemic lupus erythematosus Family History Mother Breast cancer Social History Household Members: Significant Other Housing: Apartment Do you presently have visiting nurse or other home services: No Alcohol intake: current Alcohol intake frequency: a few times a week Alcohol type: hard liquor Patient Tobacco Use Status: Current everyday Tobacco user Tobacco use type: Cigarette Cigarette Packs Per Day: 0.5 Cigarettes Per Day: 10.0 Years Smoked: since age 15 Second Hand Smoke Exposure: No service: No Current occupational status: disabled Female Reproductive History Menstrual Total pregnancies: 8 Full term: 4 Ab spontaneous: 4 Review of Systems Const Reports fatigue Resp Reports no additional complaints Musc Reports arthralgias and Denies joint swelling Skin/Breast Details: Hair is growing back Endo Reports fatigue Physical Exam Vital Signs: Last Vital Signs BP 144/80 H 08/08/23 08:33 BMI result Body Mass Index 31.1 Const General: cooperative, healthy appearing and comfortable Nutritional Appearance: obese Orientation/consciousness: patient oriented x3 Limitations: no limitations HEENT Head: Yes normocephalic and Yes atraumatic Mouth: moist mucous membranes Resp Effort & Inspection: normal respiratory effort and able to speak in complete sentences Cardio Rate: regular rate Rhythm: regular rhythm Skin General skin exam: no rashes or lesions noted Neuro General: patient oriented x3 Extrem Other: No active synovitis Left knee pain with full flexion Normal nailfold capillaroscopy Assessment & Plan Assessment & Plan (1) Systemic lupus erythematosus: Comment: onset around 2014 (intermittent leukopenia, oral ulcers, bilateral elbow arthritis, ++ URIAH, [place]/[employer], ++ dsDNA, low C3) MTX caused oral ulcers, improved on CellCept Was on Benlysta infusions at some time (patient does not recall benefits or side effects) On HCQ regularly + prn prednisone Code(s): M32.9 - Systemic lupus erythematosus, unspecified Qualifiers: Systemic lupus erythematosus type: other Systemic lupus erythematosus organ involvement: unspecified Qualified Code(s): M32.8 - Other forms of systemic lupus erythematosus Plan: This is a 58-year-old female with SLE who presents as a new patient for me. She used to follow-up with Dr. Walsh at the [facility]. Symptomatically, patient is doing well today with no features of active SLE. Will request records from the [facility]. Will check lupus activity labs. Hydroxychloroquine 200 mg Twice daily refilled. Follow-up in 4-6 weeks (2) Long-term use of hydroxychloroquine: Code(s): Z79.899 - Other [place] [facility] (current[facility] drug therapy Plan: Patient states that she follows up regularly with Ophthalmology for Plaquenil monitor paying states that she has an appointment tomorrow. Advised patient to ask the ophthalmology office to send me the notes (3) Right femoral vein DVT: Comment: 2014 treated with Coumadin for a few months Code(s): I82.411 - Acute embolism and thrombosis of right femoral vein Qualifiers: Chronicity: unspecified Qualified Code(s): I82.411 - Acute embolism and thrombosis of right femoral vein Plan: Will check antiphospholipid antibodies Plan I spent 46 minutes reviewing patient's chart, evaluating patient, ordering diagnostic workup, counseling patient and documenting in the chart Orders: Orders Anti DNA DS Antibody Today M32.9 - Systemic lupus erythematosus, unspecified Complement C3 Today M32.9 - Systemic lupus erythematosus, unspecified Complement C4 Today M32.9 - Systemic lupus erythematosus, unspecified C Reactive Protein Today M32.9 - Systemic lupus erythematosus, unspecified Erythrocyte Sedimentation Rate Today M32.9 - Systemic lupus erythematosus, unspecified Protein Creatinine Ratio, Ur Today M32.9 - Systemic lupus erythematosus, unspecified UA w Microscopic Today M32.9 - Systemic lupus erythematosus, unspecified Comprehensive Met. Panel Today M32.9 - Systemic lupus erythematosus, unspecified Immunofixation Pnl, Serum Today M32.9 - Systemic lupus erythematosus, unspecified Protein Electrophoresis, Serum Today M32.9 - Systemic lupus erythematosus, unspecified Beta-2 Glycoprotein Antibody Today I82.411 - Acute embolism and thrombosis of right femoral vein Rheumatoid Factor Today M25.50 - Pain in unspecified joint Anti Extractable Nuclear Ag Today M32.9 - Systemic lupus erythematosus, unspecified DNA Double Stranded-Crithidia Today M32.9 - Systemic lupus erythematosus, unspecified Sjogren's Antibodies Today M32.9 - Systemic lupus erythematosus, unspecified Complete Blood Count Auto Diff Today M32.9 - Systemic lupus erythematosus, unspecified Hepatitis A,B,C Profile Today Z11.59 - Encounter for screening for other viral diseases T Spot TB Today Z11.7 - Encounter for testing for latent tuberculosis infection Cardiolipin Antibodies Today I82.411 - Acute embolism and thrombosis of right femoral vein Lupus Anticoagulant Panel Today I82.411 - Acute embolism and thrombosis of right femoral vein Cyclic Citrullinated Peptide Today M25.50 - Pain in unspecified joint Medications: New hydroxychloroquine (Plaquenil) 400 mg (2 x 200 mg) PO DAILY 180 tabs 1RF Coding Level of Care Code Est Pt Level 5 (88672) Diagnoses Other forms of systemic lupus erythematosus, unspecified organ involvement status M32.8 Systemic lupus erythematosus type: other Systemic lupus erythematosus organ involvement: unspecified Long-term use of hydroxychloroquine Z79.899 Deep vein thrombosis (DVT) of femoral vein of right lower extremity, unspecified chronicity I82.411 Chronicity: unspecified
[2023-08-08 08:33] VITALS: BP 144/80; BMI 31.1
== END 2023-08-08 08:53 | disposition home or self-care (01) ==
PROVIDERS: PCP Family Medicine; Visit Provider Student in an Organized Health Care Education/Training Program
DX: M32.8 Other forms of systemic lupus erythematosus (principal); Z79.899 Other long term (current) drug therapy; I82.411 Acute embolism and thrombosis of right femoral vein
CPT/HCPCS: 99215

== ENCOUNTER → 2023-08-08 08:29 | Outpatient (BNVA) | payer MEDICARE, SELFPAY | PROVIDERS: PCP Family Medicine; Visit Provider Student in an Organized Health Care Education/Training Program | DX: M32.8 Other forms of systemic lupus erythematosus (principal); I82.411 Acute embolism and thrombosis of right femoral vein; Z79.899 Other long term (current) drug therapy | CPT/HCPCS: 99212 ==

== ENCOUNTER 2023-08-08 08:58 | Outpatient (REF) | payer MEDICARE, SELFPAY ==
[2023-08-08 10:20] LABS: MANUAL DIFF FLAG NO
[2023-08-08 10:23] LABS: Basophils Percent Auto 0.3 % (0-2); Hematocrit 36.8 % (37.0-47.0); Hemoglobin 12.2 g/dl (12.0-16.0); Imm Gran Abs Auto 0.01 X10*3/uL (0.00-0.03); Imm Gran Pct Auto 0.3 % (0.0-0.4); Lymphocytes Absolute Auto 1.3 X10*3/uL (1.2-4.9); Lymphocytes Percent Auto 43.7 % (20-40); Mean Corpuscular HGB Conc 33.2 g/dl (31.0-35.0); Mean Corpuscular Hemoglobin 28.8 pg (27.0-33.0); Mean Corpuscular Volume 86.8 fL (80.0-98.0); Mean Platelet Volume 9.1 fL (9.4-12.3); Monocytes Absolute Auto 0.1 X10*3/uL (0.1-1.2); Monocytes Percent Auto 4.6 % (2-11); Neutrophils Absolute Auto 1.5 x10*3/uL (2.0-8.3); Neutrophils Percent Auto 50.1 % (45-73); Platelet Count 198 X10*3/uL (160-400); Red Blood Count 4.24 X10*6/uL (4.20-5.50); Red Cell Distribution Width 16.8 % (11.0-16.0)
[2023-08-08 10:42] LABS: Rheumatoid Factor < 13.0 IU/mL (<15.0)
[2023-08-08 10:47] LABS: Alanine Aminotransferase 9 U/L (0-31); Albumin Level 3.9 g/dL (3.5-5.0); Alkaline Phosphatase 78 U/L (39-117); Anion Gap 11 (12-20); Aspartate Amino Transferase 18 U/L (5-31); Bilirubin Total 0.5 mg/dL (0.0-1.0); Blood Urea Nitrogen 10 mg/dL (9-16); C Reactive Protein 1.26 mg/dL (< or = 0.50); Calcium 9.2 mg/dL (8.4-10.2); Carbon Dioxide 23 mmol/L (22-29); Chloride 111 mmol/L (96-108); Estimated Glomerular Filt Rate > 60; Glucose Random 82 mg/dL (60-115); Potassium 3.9 mmol/L (3.3-5.1); Sodium 141 mmol/L (135-145); Total Protein 8.4 g/dL (6.5-8.0)
[2023-08-08 11:03] LABS: Erythrocyte Sedimentation Rate 39 MM/HR (0-20)
[2023-08-09 08:47] LABS: HBS Num1 62.01 mIU/mL (0-7.99); HBc Num1 0.23 S/CO (0.00-0.79); Hepatitis A Antibody IgM 0.61 Index (0-0.79); Hepatitis B Core Antibody Nonreactive (Nonreactive); Hepatitis B Surface Antigen Negative (Negative); ~HepC Num1 0.73 S/CO (0.00-0.79); ~Hepatitis A Antibody IgM Nonreactive (Nonreactive); ~Hepatitis B Surface Antibody REACTIVE (Nonreactive); ~Hepatitis C Antibody Nonreactive (Nonreactive)
[2023-08-09 19:12] LABS: Cardiolipin IgG Ab <2.0 GPL-U/mL; Cardiolipin IgM Ab <2.0 MPL-U/mL
[2023-08-09 19:49] LABS: Complement C3 67 mg/dL (83-193)
[2023-08-10 12:13] LABS: Prot Elec - Albumin 3.8 g/dL (3.8-4.8); Prot Elec - Alpha1 0.4 g/dL (0.2-0.3); Prot Elec - Alpha2 0.8 g/dL (0.5-0.9); Prot Elec - Beta 1 0.5 g/dL (0.4-0.6); Prot Elec - Beta 2 0.7 g/dL (0.2-0.5); Prot Elec - Gamma 1.7 g/dL (0.8-1.7); Prot Elec - Total Protein 7.8 g/dL (6.1-8.1)
[2023-08-10 14:38] LABS: Cyclic Citrullinated Peptide <16 UNITS
[2023-08-11 13:23] LABS: TS Negative Control Passed; TS Panel A 0; TS Panel B 0; TS Positive Control Passed; TSpotTB Negative (Negative)
[2023-08-11 23:19] LABS: Beta-2 Glycoprotein IgA 2.3 U/mL (<20.0); Beta-2 Glycoprotein IgG <2.0 U/mL (<20.0); Beta-2 Glycoprotein IgM <2.0 U/mL (<20.0)
[2023-08-13 11:58] LABS: DNAds, Crithidia Antibody Positive (Negative)
[2023-08-13 15:43] LABS: IgA 689 mg/dL (47-310); IgG 2077 mg/dL (600-1640); IgM 126 mg/dL (50-300)
[2023-08-14 23:28] LABS: PTT (LAC) Screen 32 sec (<=40)
[2023-08-15 09:08] LABS: Anti DNA DS Antibody 100 IU/mL; Antibody to SS-A Antigen <1.0 NEG AI (<1.0 NEG); Antibody to SS-B Antigen <1.0 NEG AI (<1.0 NEG); SM/Ribonucleoprotein Ab >8.0 POS AI (<1.0 NEG); Smith Protein 5.2 POS AI (<1.0 NEG)
== END 2023-08-08 08:59 | disposition home or self-care (01) ==
LOC: HO.10HDL 08:58
PROVIDERS: Visit Provider Student in an Organized Health Care Education/Training Program
DX: Z11.59 Encounter for screening for other viral diseases (principal); Z11.7 Encounter for testing for latent tuberculosis infection; M32.9 Systemic lupus erythematosus, unspecified; I82.411 Acute embolism and thrombosis of right femoral vein; M25.50 Pain in unspecified joint; Z72.89 Other problems related to lifestyle
CPT/HCPCS: 36415; 80053; 82784; 84165; 85025; 85597; 85598; 85613; 85652; 85730; 86140; 86146; 86147; 86160; 86200; 86225; 86235; 86255; 86334; 86431; 86481; 86704; 86706; 86709; 86803; 87340

== ENCOUNTER 2023-08-27 12:52 | Outpatient (REF) | payer MEDICARE, SELFPAY ==
--- NOTE | ~2023-08-27 | MM_ITS ---
EXAMINATION: MM DIAGNOSTIC DIGITAL BREAST TOMOSYNTHESIS, RIGHT CLINICAL INFORMATION: Follow-up probably benign calcifications right breast approximate 12:00, mid depth. COMPARISON: Mammography: 01/17/2023, 05/09/2022, 11/07/2021, 10/21/2021 (BI-RADS 0), 12/23/2019, and dating back to 2017. TECHNIQUE: Digital right breast tomosynthesis is performed in both the craniocaudal and mediolateral oblique views along with computer-aided detection (CAD). Synthesized 2D images are generated from the tomosynthesis. In addition, a full-field right mediolateral view was obtained, as well as 2-D spot magnification right CC and ML views. FINDINGS: There are scattered areas of fibroglandular density (ACR BI-RADS breast composition Category b). Calcifications in the 12:00 axis of the right breast, middle one third, have not appreciably changed in number, morphology, or distribution since 10/21/2021. These remain probably benign. Six-month interval follow-up right breast spot magnification views recommended to ensure stability and establish two-year stability. Right breast parenchymal pattern is similar to prior exams. There is no significant mass, architectural abnormality or developing suspicious density. There is a stable circumscribed mass anterior 9:00 right breast. There are vascular calcifications. MM/MM tomosynthesis diagnostic RT IMPRESSION: No findings right breast consistent with malignancy. Stable probably benign calcifications 12:00 axis right breast, anterior one third. Recommend six-month interval follow-up right diagnostic mammogram to include standard spot magnification views when the patient is due for bilateral screening. This will establish two-year stability and thus benignity. ASSESSMENT: BI-RADS BI-RADS 3 - Probably benign finding(s) - 6 month follow-up suggested RECOMMENDATION: 6 Month F/U Results were provided to the patient at time of visit by the technologist. This patient's information was entered into a reminder system with a target due date for their next mammogram.
== END 2023-08-27 12:53 | disposition home or self-care (01) ==
LOC: HO.MAMMO 12:52
PROVIDERS: PCP Family Medicine; Visit Provider Family Medicine
DX: R92.1 Mammographic calcification found on diagnostic imaging of breast (principal)
CPT/HCPCS: 77061; 77065

== ENCOUNTER → 2023-08-27 13:00 | Outpatient (BNV) | payer MEDICARE, SELFPAY | PROVIDERS: PCP Family Medicine; Visit Provider Radiology Diagnostic Radiology | DX: R92.1 Mammographic calcification found on diagnostic imaging of breast (principal) | CPT/HCPCS: 77065; G0279 ==

== ENCOUNTER 2023-09-10 09:55 | Outpatient (AMB) | payer MEDICARE, SELFPAY ==
--- NOTE | 2023-09-10 10:06 | MHC.OFFVIS ---
Intake Vital Signs 09/10/23 10:09 Height 5 ft 2 in Weight 168 lb 3.403 oz BMI 30.8 BP 138/76 Blood Pressure Location Rt brachial Position Sitting Intake Visit Reasons: SLE/lm Intake Note: Patient last seen 08/08/23 presents today for follow up and test results. Butter Maker Required: No Accompanied by: Self / Same As Patient Allergies No Known Allergies Allergy (Verified 09/10/23 10:11) Medication List - Last Reconciled 09/10/23 by Vanda Nice MD albuterol sulfate 90 mcg/actuation 1 inh inhalation QID PRN aspirin (Adult Low Dose Aspirin) 81 mg PO DAILY fluticasone furoate-vilanterol 200-25 mcg/dose (Breo Ellipta) 1 inh inhalation DAILY hydroxychloroquine (Plaquenil) 400 mg (2 x 200 mg) PO DAILY levalbuterol HCl 1.25 mg inhalation Q4H PRN oxycodone-acetaminophen 5-325 mg (Percocet) 1 tab PO Q12H PRN HPI HPI Comments History of Present Illness Details 58yoF presents for follow-up of SLE. Doing well overall on hydroxychloroquine 400 mg daily. She has no complaints today. No rashes, no oral ulcers. No joint pain or swelling. No generalized fatigue. No blood or froth in urine Most recent history by Dr. Wise 12/2020: Pt does not know what the initial presentation for her Lupus was. 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 Her clinical manifestations have included intermittant leukopenia, oral ulcers and bilateral elbow arthritis. The oral ulcers improved on Cellcept. In the past, she has failed Benlysta infusions. She has also been on MTX which was switched to Cellcept for oral ulcers. Off of Cellcept now. Had a flare of her lupus in September 2018. Her flare presented as worsening arthralgias. Patient was hospitalized at [facility] for this. On Plaquenil b.i.d.. Previously on prednisone 5 mg daily, now uses as needed. Patients lupus continues to be well controlled. Denies any recent flares. No rashes, ulcers fevers. Up-to-date with Ophthalmology monitoring. Patient knows when her lupus is going flare based on constitutional symptoms such as malaise and joint swelling so she will take one 5mg tablet of Prednisone to prevent progression to a full blown flare that has required hospitalization in the past. She has not had to use any Prednisone since her last visit. [facility] Medical History Right femoral vein DVT Smoker COPD (chronic obstructive pulmonary disease) Asthma Obstructive sleep apnea Systemic lupus erythematosus Family History Mother Breast cancer Social History Household Members: Significant Other Housing: Apartment Do you presently have visiting nurse or other home services: No Alcohol intake: current Alcohol intake frequency: a few times a week Alcohol type: hard liquor Patient Tobacco Use Status: Current everyday Tobacco user Tobacco use type: Cigarette Cigarette Packs Per Day: 0.5 Cigarettes Per Day: 10.0 Years Smoked: since age 15 Second Hand Smoke Exposure: No service: No Current occupational status: disabled Review of Systems Resp Reports no additional complaints Musc Denies joint swelling Skin/Breast Details: Hair is growing back Physical Exam Vital Signs: Last Vital Signs BP 138/76 09/10/23 10:09 BMI result Body Mass Index 30.8 Const General: cooperative, healthy appearing and comfortable Nutritional Appearance: obese Orientation/consciousness: patient oriented x3 Limitations: no limitations HEENT Head: Yes normocephalic and Yes atraumatic Mouth: moist mucous membranes Resp Effort & Inspection: normal respiratory effort and able to speak in complete sentences Cardio Rate: regular rate Rhythm: regular rhythm Skin General skin exam: no rashes or lesions noted Neuro General: patient oriented x3 Extrem Other: No active synovitis Normal nailfold capillaroscopy Assessment & Plan Assessment & Plan (1) Systemic lupus erythematosus: Comment: onset around 2014 (intermittent leukopenia, oral ulcers, bilateral elbow arthritis, ++ URIAH, Mott/FISH BUTCHER, ++ dsDNA, low C3) MTX caused oral ulcers, improved on CellCept Was on Benlysta infusions at some time (patient does not recall benefits or side effects) On HCQ regularly + prn prednisone Code(s): M32.9 - Systemic lupus erythematosus, unspecified Qualifiers: Systemic lupus erythematosus type: other Systemic lupus erythematosus organ involvement: unspecified Qualified Code(s): M32.8 - Other forms of systemic lupus erythematosus Plan: This is a 58-year-old female with SLE who presents for follow-up. Symptomatically, patient is doing well today with no features of active SLE. However she has remain serologically active. 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 Discussed known health risks of smoking especially that patient has SLE which increases risk of cardiovascular events. Advised patient to quit Plan I spent 36 minutes reviewing patient's chart, evaluating patient, ordering diagnostic workup, counseling patient and documenting in the chart Orders: Orders Anti DNA DS Antibody 3 Months M32.8 - Other forms of systemic lupus erythematosus Complement C3 3 Months M32.8 - Other forms of systemic lupus erythematosus Complement C4 3 Months M32.8 - Other forms of systemic lupus erythematosus Protein Creatinine Ratio, Ur 3 Months M32.8 - Other forms of systemic lupus erythematosus UA w Microscopic 3 Months M32.8 - Other forms of systemic lupus erythematosus Comprehensive Met. Panel 3 Months M32.8 - Other forms of systemic lupus erythematosus C Reactive Protein 3 Months M32.8 - Other forms of systemic lupus erythematosus DNA Double Stranded-Crithidia 3 Months M32.8 - Other forms of systemic lupus erythematosus Erythrocyte Sedimentation Rate 3 Months M32.8 - Other forms of systemic lupus erythematosus Complete Blood Count Auto Diff 3 Months M32.8 - Other forms of systemic lupus erythematosus Coding Level of Care Code Est Pt Level 5 (51398) Diagnoses Other forms of systemic lupus erythematosus, unspecified organ involvement status M32.8 Systemic lupus erythematosus type: other Systemic lupus erythematosus organ involvement: unspecified Long-term use of hydroxychloroquine Z79.899 Deep vein thrombosis (DVT) of femoral vein of right lower extremity, unspecified chronicity I82.411 Chronicity: unspecified Tobacco abuse counseling Z71.6
[2023-09-10 10:09] VITALS: BP 138/76; BMI 30.8
== END 2023-09-10 10:30 | disposition home or self-care (01) ==
PROVIDERS: PCP Family Medicine; Visit Provider Student in an Organized Health Care Education/Training Program
DX: M32.8 Other forms of systemic lupus erythematosus (principal); Z79.899 Other long term (current) drug therapy; I82.411 Acute embolism and thrombosis of right femoral vein; Z71.6 Tobacco abuse counseling
CPT/HCPCS: 99214

== ENCOUNTER → 2023-09-10 09:55 | Outpatient (BNVA) | payer MEDICARE, SELFPAY | PROVIDERS: PCP Family Medicine; Visit Provider Student in an Organized Health Care Education/Training Program | DX: M32.8 Other forms of systemic lupus erythematosus (principal); I82.411 Acute embolism and thrombosis of right femoral vein; Z71.6 Tobacco abuse counseling; Z79.899 Other long term (current) drug therapy | CPT/HCPCS: 99212 ==

== ENCOUNTER 2023-12-05 06:41 | Outpatient (REF) | payer MEDICARE, SELFPAY ==
[2023-12-05 06:59] LABS: MANUAL DIFF FLAG NO
[2023-12-05 07:41] LABS: Eosinophils Percent Auto 0.9 % (0-4); Hemoglobin 11.9 g/dl (12.0-16.0); Imm Gran Abs Auto 0.01 X10*3/uL (0.00-0.03); Imm Gran Pct Auto 0.3 % (0.0-0.4); Lymphocytes Absolute Auto 1.7 X10*3/uL (1.2-4.9); Lymphocytes Percent Auto 47.4 % (20-40); Mean Corpuscular HGB Conc 33.1 g/dl (31.0-35.0); Mean Corpuscular Hemoglobin 29.5 pg (27.0-33.0); Mean Corpuscular Volume 89.1 fL (80.0-98.0); Mean Platelet Volume 9.6 fL (9.4-12.3); Monocytes Absolute Auto 0.2 X10*3/uL (0.1-1.2); Monocytes Percent Auto 4.6 % (2-11); Neutrophils Absolute Auto 1.6 x10*3/uL (2.0-8.3); Neutrophils Percent Auto 46.8 % (45-73); Platelet Count 207 X10*3/uL (160-400); Red Blood Count 4.04 X10*6/uL (4.20-5.50); Red Cell Distribution Width 17.9 % (11.0-16.0); White Blood Count 3.5 X10*3/uL (4.8-10.8)
[2023-12-05 08:02] LABS: Alanine Aminotransferase 8 U/L (0-31); Albumin Level 3.8 g/dL (3.5-5.0); Alkaline Phosphatase 71 U/L (39-117); Anion Gap 12 (12-20); Aspartate Amino Transferase 17 U/L (5-31); Bilirubin Total 0.5 mg/dL (0.0-1.0); Blood Urea Nitrogen 9 mg/dL (9-16); C Reactive Protein 1.11 mg/dL (< or = 0.50); Calcium 9.3 mg/dL (8.4-10.2); Carbon Dioxide 23 mmol/L (22-29); Chloride 110 mmol/L (96-108); Estimated Glomerular Filt Rate > 60; Glucose Random 81 mg/dL (60-115); Potassium 3.7 mmol/L (3.3-5.1); Sodium 141 mmol/L (135-145); Total Protein 8.2 g/dL (6.5-8.0)
[2023-12-05 08:21] LABS: Creatinine Urine 124.99 mg/dL; Total Protein Urine Random 12 mg/dL (<12)
[2023-12-05 08:24] LABS: Erythrocyte Sedimentation Rate 29 MM/HR (0-20)
[2023-12-05 09:15] LABS: Appearance Urine Hazy; Color Urine Yellow; Glucose Urine UA Negative (Negative); Leukocyte Esterase Urine Negative (Negative); Nitrite Urine Negative (Negative); Specific Gravity - Urine >= 1.030 (1.005-1.025); UMIC TRIGGER UA YES; Urine Blood Trace (Negative); Urine Ketones Negative (Negative); Urine Protein Negative (Neg-Trace)
[2023-12-05 09:22] LABS: Bacteria Urine 2+ (None Seen); RBC Urine 0-2 /HPF (0-2); WBC Urine 0-5 /HPF (0-5)
[2023-12-07 21:14] LABS: Anti DNA DS Antibody 98 IU/mL
[2023-12-08 00:54] LABS: Complement C3 106 mg/dL (83-193)
[2023-12-13 15:54] LABS: DNAds, Crithidia Antibody Positive (Negative)
[2023-12-13 16:28] LABS: DNAds, Crithidia Antibody >=1:1280 titer (<1:10)
== END 2023-12-05 06:42 | disposition home or self-care (01) ==
LOC: HO.LAB 06:41
PROVIDERS: PCP Family Medicine; Visit Provider Student in an Organized Health Care Education/Training Program
DX: M32.8 Other forms of systemic lupus erythematosus (principal)
CPT/HCPCS: 36415; 80053; 81001; 82570; 84156; 85025; 85652; 86140; 86160; 86225; 86255

== ENCOUNTER 2023-12-11 08:49 | Outpatient (AMB) | payer MEDICARE, SELFPAY ==
--- NOTE | 2023-12-11 08:51 | MHC.OFFVIS ---
Vital Signs 12/11/23 08:55 Height 5 ft 2 in Weight 169 lb 1.513 oz BMI 30.9 BP 124/70 Blood Pressure Location Rt brachial Position Sitting Pulse 86 Pulse Source Pulse Oximeter Pulse Oximetry (%) 96 Oxygen Delivery Method Room Air Intake Visit Reasons: SLE/CM Intake Note: Patient presents for SLE. Allergies No Known Allergies Allergy (Verified 12/11/23 08:55) Medication List - Last Reconciled 12/11/23 by Vanda Nice MD albuterol sulfate 90 mcg/actuation 1 inh inhalation QID PRN aspirin (Adult Low Dose Aspirin) 81 mg PO DAILY fluticasone furoate-vilanterol 200-25 mcg/dose (Breo Ellipta) 1 inh inhalation DAILY hydroxychloroquine (Plaquenil) 400 mg (2 x 200 mg) PO DAILY levalbuterol HCl 1.25 mg inhalation Q4H PRN oxycodone-acetaminophen 5-325 mg (Percocet) 1 tab PO Q12H PRN HPI Comments Details: 58yoF presents for follow-up of SLE. Hydroxychloroquine 400 mg daily. She stated that last week she had a couple of days when she had bilateral hand achiness associated with and numbness of her fingertips. The whole episode lasted 2-3 days and it self-resolved. She has not use prednisone since last visit. She denies any fevers. Denies any skin rashes. Most recent history by Dr. Wise 12/2020: Pt does not know what the initial presentation for her Lupus was. 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 Her clinical manifestations have included intermittant leukopenia, oral ulcers and bilateral elbow arthritis. The oral ulcers improved on Cellcept. In the past, she has failed Benlysta infusions. She has also been on MTX which was switched to Cellcept for oral ulcers. Off of Cellcept now. Had a flare of her lupus in September 2018. Her flare presented as worsening arthralgias. Patient was hospitalized at [facility] for this. On Plaquenil b.i.d.. Previously on prednisone 5 mg daily, now uses as needed. Patients lupus continues to be well controlled. Denies any recent flares. No rashes, ulcers fevers. Up-to-date with Ophthalmology monitoring. Patient knows when her lupus is going flare based on constitutional symptoms such as malaise and joint swelling so she will take one 5mg tablet of Prednisone to prevent progression to a full blown flare that has required hospitalization in the past. She has not had to use any Prednisone since her last visit. [facility] Medical History Right femoral vein DVT Smoker COPD (chronic obstructive pulmonary disease) Asthma Obstructive sleep apnea Systemic lupus erythematosus Family History Mother Breast cancer Social History Household Members: Significant Other Housing: Apartment Do you presently have visiting nurse or other home services: No Alcohol intake: current Alcohol intake frequency: a few times a week Alcohol type: hard liquor Patient Tobacco Use Status: Current everyday Tobacco user Tobacco use type: Cigarette Cigarette Packs Per Day: 0.5 Cigarettes Per Day: 10.0 Years Smoked: since age 15 Second Hand Smoke Exposure: No service: No Current occupational status: disabled Review of Systems Musc Reports arthralgias, Reports joint swelling and Reports numbness Neuro Reports numbness Physical Exam Vital Signs: Last Vital Signs Pulse 86 12/11/23 08:55 BP 124/70 12/11/23 08:55 Pulse Ox 96 12/11/23 08:55 Oxygen Delivery Method Room Air 12/11/23 08:55 BMI result Body Mass Index 30.9 Const General: cooperative, healthy appearing and comfortable Nutritional Appearance: obese Orientation/consciousness: patient oriented x3 Limitations: no limitations HEENT Head: Yes normocephalic and Yes atraumatic Mouth: moist mucous membranes Resp Effort & Inspection: normal respiratory effort and able to speak in complete sentences Cardio Rate: regular rate Rhythm: regular rhythm Skin General skin exam: no rashes or lesions noted Neuro General: patient oriented x3 Extrem Other: No active synovitis Normal nailfold capillaroscopy Assessment & Plan Assessment & Plan (1) Systemic lupus erythematosus: Comment: onset around 2014 (intermittent leukopenia, oral ulcers, bilateral elbow arthritis, ++ URIAH, 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 Symptomatically, patient is doing well today with no features of active SLE. No proteinuria, However she has remain serologically active. With elevated dsDNA, mild leukopenia, elevated inflammatory markers Continue with hydroxychloroquine 400 mg daily Labs before next visit in 4 months (2) Long-term use of hydroxychloroquine: Comment: Eye exam OK 08/2023 Code(s): Z79.899 - Other [facility] (current) drug therapy Category: Medical Plan: Follow-up regularly with Ophthalmology (3) Right femoral vein DVT: Comment: 2014 treated with Coumadin for a few months Code(s): I82.411 - Acute embolism and thrombosis of right femoral vein Category: Medical Qualifiers: Chronicity: unspecified Qualified Code(s): I82.411 - Acute embolism and thrombosis of right femoral vein Plan: Antiphospholipid antibodies negative (4) Tobacco abuse counseling: Code(s): Z71.6 - Tobacco abuse counseling Category: Medical Plan: Patient continues to smoke half a pack a day. Discussed known health risks of smoking especially that patient has SLE which increases risk of cardiovascular events. Advised patient to quit Plan I spent 30 minutes reviewing patient's chart, evaluating patient, ordering diagnostic workup, counseling patient and documenting in the chart Orders: Orders C Reactive Protein 4 Months M32.8 - Other forms of systemic lupus erythematosus Erythrocyte Sedimentation Rate 4 Months M32.8 - Other forms of systemic lupus erythematosus Protein Creatinine Ratio, Ur 4 Months M32.8 - Other forms of systemic lupus erythematosus UA w Microscopic 4 Months M32.8 - Other forms of systemic lupus erythematosus Comprehensive Met. Panel 4 Months M32.8 - Other forms of systemic lupus erythematosus Anti DNA DS Antibody 4 Months M32.8 - Other forms of systemic lupus erythematosus Complement C3 4 Months M32.8 - Other forms of systemic lupus erythematosus Complement C4 4 Months M32.8 - Other forms of systemic lupus erythematosus Complete Blood Count Auto Diff 4 Months M32.8 - Other forms of systemic lupus erythematosus Coding Level of Care Code Est Pt Level 4 (03044) Complex EM visit Add On G2211 Diagnoses Other forms of systemic lupus erythematosus, unspecified organ involvement status M32.8 Systemic lupus erythematosus type: other Systemic lupus erythematosus organ involvement: unspecified Long-term use of hydroxychloroquine Z79.899 Deep vein thrombosis (DVT) of femoral vein of right lower extremity, unspecified chronicity I82.411 Chronicity: unspecified Tobacco abuse counseling Z71.6
[2023-12-11 08:55] VITALS: BP 124/70; PULSE 86; O2SAT 96; BMI 30.9
== END 2023-12-11 10:18 | disposition home or self-care (01) ==
PROVIDERS: PCP Family Medicine; Visit Provider Student in an Organized Health Care Education/Training Program
DX: M32.8 Other forms of systemic lupus erythematosus (principal); Z79.899 Other long term (current) drug therapy; I82.411 Acute embolism and thrombosis of right femoral vein; Z71.6 Tobacco abuse counseling
CPT/HCPCS: 99214; G2211

== ENCOUNTER → 2023-12-11 08:49 | Outpatient (BNVA) | payer MEDICARE, SELFPAY | PROVIDERS: PCP Family Medicine; Visit Provider Student in an Organized Health Care Education/Training Program | DX: M32.8 Other forms of systemic lupus erythematosus (principal); I82.411 Acute embolism and thrombosis of right femoral vein; F17.200 Nicotine dependence, unspecified, uncomplicated; Z71.6 Tobacco abuse counseling; Z79.899 Other long term (current) drug therapy | CPT/HCPCS: 99212 ==

== ENCOUNTER 2024-02-12 08:34 | Outpatient (REF) | payer MEDICARE, SELFPAY ==
[2024-02-12 11:27] LABS: Estimated Average Glucose 94 mg/dL; Hemoglobin A1c % 4.9 % (<6.0)
[2024-02-12 12:00] LABS: Vitamin B12 759 pg/mL (200-900)
[2024-02-12 12:26] LABS: Creatinine Urine 62.04 mg/dL; Microalbum/Creatinine Ratio Ur 24.1 ug/mg cr (<30)
[2024-02-12 12:49] LABS: Alanine Aminotransferase 11 U/L (0-31); Albumin Level 3.8 g/dL (3.5-5.0); Alkaline Phosphatase 82 U/L (39-117); Anion Gap 14 (12-20); Aspartate Amino Transferase 23 U/L (5-31); Bilirubin Direct 0.1 mg/dL (0.0-0.5); Bilirubin Total 0.5 mg/dL (0.0-1.0); Blood Urea Nitrogen 8 mg/dL (9-16); Carbon Dioxide 21 mmol/L (22-29); Chloride 110 mmol/L (96-108); Cholesterol 190 mg/dL (<200); Estimated Glomerular Filt Rate > 60; Glucose Random 84 mg/dL (60-115); HDL Cholesterol 43 mg/dL (>40); Iron 68 mcg/dL (30-160); LDL Cholesterol Calculated 127 mg/dL (<100); Percent Iron Saturation 29 % (15-50); Potassium 4.5 mmol/L (3.3-5.1); Sodium 140 mmol/L (135-145); Total Iron Binding Capacity 238 mcg/dL (228-428); Total Protein 8.4 g/dL (6.5-8.0); Triglycerides 103 mg/dL (<150); Unsaturated Iron Binding 170 ug/dL
[2024-02-12 13:07] LABS: Ferritin 254 ng/mL (10-250)
== END 2024-02-12 08:35 | disposition home or self-care (01) ==
LOC: HO.HHCL 08:34
PROVIDERS: Visit Provider Family Medicine
DX: D64.9 Anemia, unspecified (principal); E78.5 Hyperlipidemia, unspecified; Z79.52 Long term (current) use of systemic steroids; I10 Essential (primary) hypertension; Z13.1 Encounter for screening for diabetes mellitus
CPT/HCPCS: 36415; 80048; 80061; 80076; 82043; 82570; 82607; 82728; 83036; 83540

== ENCOUNTER 2024-02-13 10:29 | Outpatient (REF) | payer MEDICARE, SELFPAY ==
[2024-02-13 11:26] LABS: MANUAL DIFF FLAG NO
[2024-02-13 11:36] LABS: Basophils Percent Auto 0.5 % (0-2); Eosinophils Percent Auto 0.8 % (0-4); Hematocrit 34.7 % (37.0-47.0); Hemoglobin 11.5 g/dl (12.0-16.0); Imm Gran Abs Auto 0.01 X10*3/uL (0.00-0.03); Imm Gran Pct Auto 0.3 % (0.0-0.4); Lymphocytes Absolute Auto 1.4 X10*3/uL (1.2-4.9); Lymphocytes Percent Auto 38.3 % (20-40); Mean Corpuscular HGB Conc 33.1 g/dl (31.0-35.0); Mean Corpuscular Hemoglobin 29.6 pg (27.0-33.0); Mean Corpuscular Volume 89.4 fL (80.0-98.0); Mean Platelet Volume 9.7 fL (9.4-12.3); Monocytes Absolute Auto 0.2 X10*3/uL (0.1-1.2); Monocytes Percent Auto 5.1 % (2-11); Neutrophils Absolute Auto 2.1 x10*3/uL (2.0-8.3); Platelet Count 239 X10*3/uL (160-400); Red Blood Count 3.88 X10*6/uL (4.20-5.50); Red Cell Distribution Width 17.2 % (11.0-16.0); White Blood Count 3.7 X10*3/uL (4.8-10.8)
[2024-02-13 12:27] LABS: HIV AB/AG Nonreactive (Nonreactive); HIV Num 1 0.06 S/CO (0.00-0.99)
[2024-02-13 12:38] LABS: Cholesterol 178 mg/dL (<200); HDL Cholesterol 41 mg/dL (>40); Iron 51 mcg/dL (30-160); LDL Cholesterol Calculated 114 mg/dL (<100); Percent Iron Saturation 23 % (15-50); Total Iron Binding Capacity 221 mcg/dL (228-428); Triglycerides 115 mg/dL (<150); Unsaturated Iron Binding 170 ug/dL
[2024-02-13 12:40] LABS: Folate 4.4 ng/mL (> or = 4.0); Vitamin B12 901 pg/mL (200-900)
[2024-02-13 12:47] LABS: Ferritin 220 ng/mL (10-250)
== END 2024-02-13 10:30 | disposition home or self-care (01) ==
LOC: HO.HHCL 10:29
PROVIDERS: Visit Provider Family Medicine
DX: D64.9 Anemia, unspecified (principal); Z11.3 Encounter for screening for infections with a predominantly sexual mode of transmission; R79.89 Other specified abnormal findings of blood chemistry; E78.5 Hyperlipidemia, unspecified
CPT/HCPCS: 36415; 80061; 82607; 82728; 82746; 83540; 85025; 87389

== ENCOUNTER 2024-03-14 16:38 | Outpatient (REF) | payer MEDICARE, SELFPAY ==
[2024-03-18 12:50] LABS: Benzoylecgonine 2971 (H)
[2024-03-18 12:51] LABS: Alphahydroxytriazolam, GCMS Ur NEGATIVE; Alprazolam, GCMS Urine NEGATIVE; Lorazepam GCMS Urine NEGATIVE; Nordiazepam, GCMS Urine NEGATIVE; Oxazepam, GCMS Urine NEGATIVE
[2024-03-18 12:52] LABS: Alphahydroxymidazolam,GCMS Ur NEGATIVE; Aminoclonazepam, GCMS Urine NEGATIVE; Flurazepam Metabolite,GCMS Ur NEGATIVE; Temazepam, GCMS Urine NEGATIVE
== END 2024-03-14 16:39 | disposition home or self-care (01) ==
LOC: HO.HHCLNP 16:38
PROVIDERS: Visit Provider Family Medicine
DX: Z79.891 Long term (current) use of opiate analgesic (principal)
CPT/HCPCS: 80346; 80353

== ENCOUNTER 2024-03-25 13:56 | Outpatient (REF) | payer MEDICARE, SELFPAY ==
--- NOTE | ~2024-03-25 | MM_ITS ---
EXAMINATION: MM DIAGNOSTIC DIGITAL BREAST TOMOSYNTHESIS, BILATERAL CLINICAL INFORMATION: Follow-up probably benign calcifications right breast approximately 12:00 axis, mid depth. This exam will establish two-year stability and benignity. Patient also due for screening. COMPARISON: Mammography: 08/27/2023, 01/17/2023, 05/09/2022, 11/07/2021, 10/21/2021 (BI-RADS 0), 12/23/2019, and dating back to 2017. TECHNIQUE: Digital breast tomosynthesis is performed in both the craniocaudal and mediolateral oblique views along with computer-aided detection (CAD). Synthesized 2D images are generated from the tomosynthesis. In addition to standard views, 2-D spot magnification right CC and ML views were obtained. FINDINGS: There are scattered areas of fibroglandular density (ACR BI-RADS breast composition Category b). -Calcifications in the 12:00 axis of the right breast, middle one third, have not appreciably changed in number, morphology, or distribution since 10/21/2021. These remain stable over 2 years, and are benign. No further follow-up recommended. -Stable circumscribed nodule right breast 9:00 axis, anterior, benign. There is no developing suspicious mass, developing suspicious calcifications, or region of architectural distortion. There is no suspicious skin or axillary abnormality. There are probable precipitated aluminum salts from deodorant in the sebaceous glands of both axillary regions. MM/MM tomosynthesis diagnostic BI IMPRESSION: -There are no findings suspicious for malignancy in either breast. There are stable benign findings. -Calcifications in the 12:00 anterior right breast are unchanged over 2 years and hence benign. No further follow-up recommended. -Recommend the patient resume routine annual screening. ASSESSMENT: BI-RADS BI-RADS 2 - Benign Findings RECOMMENDATION: 1 year F/U Results were provided to the patient at time of visit by the technologist. This patient's information was entered into a reminder system with a target due date for their next mammogram. Electronically signed by: Amor Jimenez MD 03/25/2024 02:47 PM EDT
== END 2024-03-25 13:57 | disposition home or self-care (01) ==
LOC: HO.MAMMO 13:56
PROVIDERS: PCP Family Medicine; Visit Provider Family Medicine
DX: R92.1 Mammographic calcification found on diagnostic imaging of breast (principal)
CPT/HCPCS: 77062; 77066

== ENCOUNTER → 2024-03-25 14:00 | Outpatient (BNV) | payer MEDICARE, SELFPAY | PROVIDERS: PCP Family Medicine; Visit Provider Radiology Diagnostic Radiology | DX: R92.1 Mammographic calcification found on diagnostic imaging of breast (principal); N63.15 Unspecified lump in the right breast, overlapping quadrants | CPT/HCPCS: 77066; G0279 ==

== ENCOUNTER 2024-04-11 08:44 | Outpatient (REF) | payer MEDICARE, SELFPAY ==
[2024-04-11 09:44] LABS: Eosinophils Percent Auto 0.9 % (0-4); Hematocrit 36.5 % (37.0-47.0); Hemoglobin 12.3 g/dl (12.0-16.0); Imm Gran Abs Auto 0.01 X10*3/uL (0.00-0.03); Imm Gran Pct Auto 0.3 % (0.0-0.4); Lymphocytes Absolute Auto 1.2 X10*3/uL (1.2-4.9); Lymphocytes Percent Auto 38.6 % (20-40); MANUAL DIFF FLAG NO; Mean Corpuscular HGB Conc 33.7 g/dl (31.0-35.0); Mean Corpuscular Hemoglobin 29.4 pg (27.0-33.0); Mean Corpuscular Volume 87.3 fL (80.0-98.0); Mean Platelet Volume 10.1 fL (9.4-12.3); Monocytes Absolute Auto 0.2 X10*3/uL (0.1-1.2); Neutrophils Absolute Auto 1.8 x10*3/uL (2.0-8.3); Neutrophils Percent Auto 55.2 % (45-73); Platelet Count 188 X10*3/uL (160-400); Red Blood Count 4.18 X10*6/uL (4.20-5.50); Red Cell Distribution Width 16.9 % (11.0-16.0); White Blood Count 3.2 X10*3/uL (4.8-10.8)
[2024-04-11 10:35] LABS: Erythrocyte Sedimentation Rate 49 MM/HR (0-20)
[2024-04-11 10:50] LABS: Appearance Urine Clear; Color Urine Yellow; Glucose Urine UA Negative (Negative); Leukocyte Esterase Urine Negative (Negative); Nitrite Urine Negative (Negative); PH 5.5 (5.0-9.0); Specific Gravity - Urine 1.015 (1.005-1.025); Urine Blood Negative (Negative); Urine Ketones Negative (Negative); Urine Protein Trace mg/dL (Neg-Trace)
[2024-04-11 10:55] LABS: Bacteria Urine None Seen (None Seen); Hyaline Casts Urine 0-2 /LPF (0-2); RBC Urine 0-2 /HPF (0-2); Squamous Epithelial Cell Urine 0-2 /HPF (0-2); WBC Urine 0-5 /HPF (0-5)
[2024-04-11 11:33] LABS: Alanine Aminotransferase 11 U/L (0-31); Albumin Level 3.8 g/dL (3.5-5.0); Alkaline Phosphatase 65 U/L (39-117); Anion Gap 14 (12-20); Aspartate Amino Transferase 27 U/L (5-31); Bilirubin Total 0.4 mg/dL (0.0-1.0); Blood Urea Nitrogen 13 mg/dL (9-16); C Reactive Protein 0.94 mg/dL (< or = 0.50); Calcium 9.6 mg/dL (8.4-10.2); Carbon Dioxide 20 mmol/L (22-29); Chloride 111 mmol/L (96-108); Estimated Glomerular Filt Rate > 60; Glucose Random 82 mg/dL (60-115); Potassium 4.5 mmol/L (3.3-5.1); Sodium 140 mmol/L (135-145); Total Protein 9.1 g/dL (6.5-8.0)
[2024-04-11 12:17] LABS: Creatinine Urine 68.18 mg/dL; Protein/Creatinine Ratio, Ur 0.18 (<0.2); Total Protein Urine Random 12 mg/dL (<12)
[2024-04-14 08:33] LABS: Complement C3 114 mg/dL (83-193)
[2024-04-14 20:29] LABS: Anti DNA DS Antibody 77 IU/mL
== END 2024-04-11 08:45 | disposition home or self-care (01) ==
LOC: HO.LAB 08:44
PROVIDERS: PCP Family Medicine; Visit Provider Student in an Organized Health Care Education/Training Program
DX: M32.8 Other forms of systemic lupus erythematosus (principal)
CPT/HCPCS: 36415; 80053; 81001; 82570; 84156; 85025; 85652; 86140; 86160; 86225

== ENCOUNTER 2024-04-15 08:54 | Outpatient (AMB) | payer MEDICARE, SELFPAY ==
--- NOTE | 2024-04-15 08:56 | MHC.OFFVIS ---
Vital Signs 04/15/24 08:59 Height 5 ft 2 in Weight 160 lb 11.472 oz BMI 29.4 BP 120/74 Blood Pressure Location Rt brachial Position Sitting Pulse 82 Pulse Source Pulse Oximeter Pulse Oximetry (%) 99 Oxygen Delivery Method Room Air Intake Visit Reasons: SLE/CM Intake Note: Patient presents for SLE. Allergies No Known Allergies Allergy (Verified 04/15/24 08:59) Medication List - Last Reconciled 04/15/24 by Vanda Nice MD albuterol sulfate 90 mcg/actuation 1 inh inhalation QID PRN aspirin (Adult Low Dose Aspirin) 81 mg PO DAILY fluticasone furoate-vilanterol 200-25 mcg/dose (Breo Ellipta) 1 inh inhalation DAILY hydroxychloroquine 400 mg (2 x 200 mg) PO DAILY levalbuterol HCl 1.25 mg inhalation Q4H PRN oxycodone-acetaminophen 5-325 mg (Percocet) 1 tab PO Q12H PRN HPI Comments Details: 58yoF presents for follow-up of SLE. She remains on Hydroxychloroquine 400 mg daily. She stated that for the last 2 weeks she has been feeling generalized achiness. Denied any fevers, painful or swollen joints. Denies any oral ulcers, blood or frothy urine. Has not had any rashes. Her hair is growing back. Most recent history by Dr. Wise 12/2020: Pt does not know what the initial presentation for her Lupus was. 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 Her clinical manifestations have included intermittant leukopenia, oral ulcers and bilateral elbow arthritis. The oral ulcers improved on Cellcept. In the past, she has failed Benlysta infusions. She has also been on MTX which was switched to Cellcept for oral ulcers. Off of Cellcept now. Had a flare of her lupus in September 2018. Her flare presented as worsening arthralgias. Patient was hospitalized at [facility] for this. On Plaquenil b.i.d.. Previously on prednisone 5 mg daily, now uses as needed. Patients lupus continues to be well controlled. Denies any recent flares. No rashes, ulcers fevers. Up-to-date with Ophthalmology monitoring. Patient knows when her lupus is going flare based on constitutional symptoms such as malaise and joint swelling so she will take one 5mg tablet of Prednisone to prevent progression to a full blown flare that has required hospitalization in the past. She has not had to use any Prednisone since her last visit. [facility] Medical History Right femoral vein DVT Smoker COPD (chronic obstructive pulmonary disease) Asthma Obstructive sleep apnea Systemic lupus erythematosus Family History Mother Breast cancer Social History Household Members: Significant Other Housing: Apartment Do you presently have visiting nurse or other home services: No Alcohol intake: current Alcohol intake frequency: a few times a week Alcohol type: hard liquor Patient Tobacco Use Status: Current everyday Tobacco user Tobacco use type: Cigarette Cigarette Packs Per Day: 0.5 Cigarettes Per Day: 10.0 Years Smoked: since age 15 Second Hand Smoke Exposure: No service: No Current occupational status: disabled Female Reproductive History Menstrual Total pregnancies: 8 Full term: 4 Ab spontaneous: 4 Review of Systems Const Denies fever(s) and Denies weakness Musc Reports myalgias, Denies arthralgias and Denies joint swelling Skin/Breast Denies alopecia and Denies rash Neuro Denies weakness Physical Exam Vital Signs: Last Vital Signs Pulse 82 04/15/24 08:59 BP 120/74 04/15/24 08:59 Pulse Ox 99 04/15/24 08:59 Oxygen Delivery Method Room Air 04/15/24 08:59 BMI result Body Mass Index 29.4 Const General: cooperative, healthy appearing and comfortable Nutritional Appearance: overweight Orientation/consciousness: patient oriented x3 Limitations: no limitations HEENT Head: Yes normocephalic and Yes atraumatic Mouth: moist mucous membranes Resp Effort & Inspection: normal respiratory effort and able to speak in complete sentences Auscultation: diminished lung sounds Cardio Rate: regular rate Rhythm: regular rhythm Skin General skin exam: no rashes or lesions noted Neuro General: patient oriented x3 Extrem Other: No active synovitis Normal nailfold capillaroscopy Assessment & Plan Assessment & Plan (1) Systemic lupus erythematosus: Comment: onset around 2014 (intermittent leukopenia, oral ulcers, bilateral elbow arthritis, ++ URIAH, 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 Patient has been feeling slightly achy over the last 2 weeks. However she has remain serologically active. With chronically elevated dsDNA, mild leukopenia, elevated inflammatory markers Discussed the possibility of adding DMARDs such as Benlysta. Patient is not interested. 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 Discussed known health risks of smoking especially that patient has SLE which increases risk of cardiovascular events. Advised patient to quit Plan I spent 22 minutes reviewing patient's chart, evaluating patient, ordering diagnostic workup, counseling patient and documenting in the chart Orders: Orders Complement C3 6 Months M32.8 - Other forms of systemic lupus erythematosus Erythrocyte Sedimentation Rate 6 Months M32.8 - Other forms of systemic lupus erythematosus Protein Creatinine Ratio, Ur 6 Months M32.8 - Other forms of systemic lupus erythematosus Comprehensive Met. Panel 6 Months M32.8 - Other forms of systemic lupus erythematosus Anti DNA DS Antibody 6 Months M32.8 - Other forms of systemic lupus erythematosus Complement C4 6 Months M32.8 - Other forms of systemic lupus erythematosus C Reactive Protein 6 Months M32.8 - Other forms of systemic lupus erythematosus UA w Microscopic 6 Months M32.8 - Other forms of systemic lupus erythematosus Complete Blood Count Auto Diff 6 Months M32.8 - Other forms of systemic lupus erythematosus Coding Level of Care Code Est Pt Level 4 (37265) Complex EM visit Add On G2211 Diagnoses Other forms of systemic lupus erythematosus, unspecified organ involvement status M32.8 Systemic lupus erythematosus type: other Systemic lupus erythematosus organ involvement: unspecified Long-term use of hydroxychloroquine Z79.899 Tobacco abuse counseling Z71.6
[2024-04-15 08:59] VITALS: BP 120/74; PULSE 82; O2SAT 99; BMI 29.4
== END 2024-04-15 09:30 | disposition home or self-care (01) ==
PROVIDERS: PCP Family Medicine; Visit Provider Student in an Organized Health Care Education/Training Program
DX: M32.8 Other forms of systemic lupus erythematosus (principal); Z79.899 Other long term (current) drug therapy; Z71.6 Tobacco abuse counseling
CPT/HCPCS: 99214; G2211

== ENCOUNTER → 2024-04-15 08:54 | Outpatient (BNVA) | payer MEDICARE, SELFPAY | PROVIDERS: PCP Family Medicine; Visit Provider Student in an Organized Health Care Education/Training Program | DX: M32.8 Other forms of systemic lupus erythematosus (principal); F17.210 Nicotine dependence, cigarettes, uncomplicated; Z71.6 Tobacco abuse counseling; Z79.899 Other long term (current) drug therapy | CPT/HCPCS: 99212 ==

== ENCOUNTER 2024-08-28 09:33 | Outpatient (REF) | payer MEDICARE, SELFPAY ==
--- NOTE | ~2024-08-28 | XR_ITS ---
CLINICAL HISTORY: foot pain and paresthesias 3 views left foot Comparison: None Findings: Spiral nondisplaced fracture through the shaft of the 2nd proximal phalanx. No angulation deformity or foreshortening No periostitis or bony destruction. Mild cortical thickening and sclerosis shaft 3rd metatarsal bone possible stress fracture. Joint intervals are preserved. Calcaneus and subtalar joint intact. No significant arthritic change. No plantar calcaneal spur. 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 This can be followed up with MRI. Normal pre-Achilles fat pad. No radiopaque foreign body. Impression: 1. 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 Slight cortical thickening and sclerosis mid shaft 3rd metatarsal bone possible stress fracture. 2. 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
--- OUTSIDE RECORDS SUMMARY | 2024-08-28 11:28 | XMS_ITS | Encounter Summary ---
Author Organization [employer] Address 75 [facility] 7t [place] [address] Care Team Providers Care Cell Room Operator Name Role Phone Marjan Sams MD Primary Care Provider +1- [phone] Esteban Nice MD Unavailable Ashley Chanel OD Unavailable [phone] Reason for Visit * Reason Onset Date Comments Appointment Request 08/20/2024 Encounter Details Date Type Department Care Team (Late st Contact Info) Description 08/20/2024 Telephone [facility] MEDICINE [address] [place] [address] Marjan Sams MD 230 [place] [address] Appointment Request Social History Tobacco Use Types Packs/Day Years Used Date Smoking Tobacco: Every Day Cigarettes Smokeless Tobacco: Never Alcohol Use Standard Drinks/Week Comments Yes 0 (1 standard drink = 0.6 oz pur e alcohol) weekends Depression Answer Date Recorded Patient Health Questionnaire-9 Score 4 02/13/2024 Patient Health Questionnaire-9 Score 4 02/13/2024 Last PHQ-9: Questionnaire Data Not on file 0 02/13/2024 Housing Stability Answer Date Recorded What is your housing situation today? I have lynda alexander 02/13/[address] you li ve. Do you have problems with any of the following? None of the above 02/13/2024 Food Insecurity Answer Date Recorded Within the past 12 months, y ou worried that your food would run out before you got money to buy more: Never True 02/13/2024 Within the past 12 months,th e food you bought just didn't last and you didn't have enough money to get more: Never True 04/2024 Transportation Answer Date Recorded In the past 12 months, has l ack of transportation kept you from medical appts, meetings, work or from getting things needed for daily living? No 02/13/2024 Utilities Answer Date Recorded In the past 12 months, has t he electric, gas, oil or water company threatened to shut off services in your home? No 02/13/2024 Depression Answer Date Recorded Patient Health Questionnaire-2 Score 0 02/13/2024 Internet Access Answer Date Recorded Internet Access Q1 Yes 02/13/2024 Internet Access Q2 Not on file 02/13/2024 Comments Unknown Sex and Gender Information Value Date Recorded Sex Assigned at Female 04/03/2022 10:14 AM EDT Legal Sex Female 10:14 AM EDT Gender Identity Female 04/03/2022 10:14 AM EDT Sexual Orientation Straight 04/03/2022 10 :14 AM EDT documented as of this encounter Miscellaneous Notes * Telephone Encounter - Anushka Jiang MA - 08/21/2024 11:41 AM EDT Lvm letting pt know that I was calling back to schedule PE. If pt calls back it is ok to schedule PE in a Sunday PAP slot. * Telephone Encounter - Pj Mondragon - 08/20/2024 8:11 AM EDT Tc from pt requesting to get Physical Apt with PCP. Nitro Man advised pt that there currently wasn't anything Available. Contact pt at [phone] documented in this encounter Plan of Treatment Upcoming Encounters Date Type Department Care Team ([facility] st Contact Info) Description 09/12/2024 10:30 AM EDT Clinical Support [facility] MEDICINE [address] [place] [address] Viridiana Hernández, KIMBERLY 505 [place], [place] [phone] 10/03/2024 10:30 AM EDT Office Visit [facility] MEDICINE [address] [place] [address] Marjan Sams MD 230 [place], [place] [phone] documented as of this encounter Visit Diagnoses Not on filedocumented in this encounter Additional Health Concerns Assessment Noted Time PHQ-9 Depression Total Score: 4 02/13/20 24 9:45 AM EDT documented as of this encounter Care Teams Cell Room Operator Relationship Specialty Start Date End Date Marjan Smas MD [address] [place] [address] [phone] PCP - General Family Medicine 06/04/18 Esteban Nice MD [address] [place] [address] Rheumatology 05/21/24 Ashley Chanel OD 180 [place] [address] Optometry 05/21/24 documented as of this encounter
--- OUTSIDE RECORDS SUMMARY | 2024-08-28 11:28 | XMS_ITS | Encounter Summary ---
Author Organization [employer] Address 75 [facility] 7t [place] [address] Care Team Providers Care Concrete Fence Builder Name Role Phone Marjan Sams MD Primary Care Provider [phone]- [phone] Esteban Nice MD Unavailable Ashley Chanel OD Unavailable [phone] Encounter Details Date Type Department Care Team (Latest Contact Info) Description 08/19/2024 Travel Social History Tobacco Use Types Packs/Day Years [...] AM EDT documented as of this encounter Plan of Treatment Upcoming Encounters Date Type Department Care Team (Late st Contact Info) Description 09/12/2024 10:30 AM EDT Clinical Support [facility] MEDICINE [address] [place] [address] Viridiana Hernández RN 505 [place] [address] 10/03/2024 10:30 AM EDT Office Visit [facility] MEDICINE [address] [place] [address] Marjan Sams MD [address] [place] [address] documented as of this encounter Visit Diagnoses Not on filedocumented in this encounter Additional Health Concerns Assessment Noted Time PHQ-9 Depression Total Score: 4 02/13/20 24 9:45 AM EDT documented as of this encounter Care Teams Concrete Fence Builder Relationship Specialty Start Date End Date Marjan Sams MD [address] [place] [address] PCP - General Family Medicine 06/04/18 Esteban Nice MD [address] [place] [address] Rheumatology 05/21/24 Ashley Chanel OD [address] [place] [address] Optometry 05/21/24 documented as of this encounter
--- OUTSIDE RECORDS SUMMARY | 2024-08-28 11:28 | XMS_ITS | Encounter Summary ---
Author Organization [employer] Address 75 [facility] 7t [place] [address] Care Team Providers Care Landscape Architect And Planner Name Role Phone Marjan Sams MD Primary Care Provider [phone]- [phone] Esteban Nice MD Unavailable Ashley Chanel OD Unavailable [phone] Reason for Visit * Reason Onset Date Comments Med Refill 08/20/2024 Encounter Details Date Type Department Care Team (Late st Contact Info) Description 08/20/2024 Refill [facility] MED & PEDS 505 [place] [address] Viridiana Hernández, RN 505 [place] [address] Arthritis of both knees Social History Tobacco Use Types Packs/Day Years [...] Description 09/12/2024 10:30 AM EDT Clinical Support [facility] MEDICINE [address] [place] [address] Viridiana Hernández RN 505 [place] [address] 10/03/2024 10:30 AM EDT Office Visit [facility] MEDICINE [address] [place] [address] Marjan Sams MD [address] [place] [address] documented as of this encounter Visit Diagnoses Diagnosis Arthritis of both knees documented in this encounter Additional Health Concerns Assessment Noted Time PHQ-9 Depression Total Score: 4 02/13/20 24 9:45 AM EDT documented as of this encounter Care Teams Landscape Architect And Planner Relationship Specialty Start Date End Date Marjan Sams MD [address] [place] [address] PCP - General Family Medicine 06/04/18 Esteban Nice MD [address] [place] [address] Rheumatology 05/21/24 Ashley Chanel OD [address] [place] [address] Optometry 05/21/24 documented as of this encounter
--- OUTSIDE RECORDS SUMMARY | 2024-08-28 11:29 | XMS_ITS | Encounter Summary ---
Author Organization [employer] Address [address] [place] [address] 7[place] [address] Care Team Providers Care Sap Bpc Architect Name Role Phone Marjan Sams MD Primary Care Provider [phone]- [phone] Esteban Nice MD Unavailable Ashley Chanel OD Unavailable [phone] Reason for Visit * Reason Onset Date Comments Med Refill 02/19/2023 Encounter Details Date Type Department Care Team (Late st Contact Info) Description 02/19/2023 Telephone [facility] MEDICINE [address] [place] [address] Marjan Sams MD 230 [place] [address] Med Refill Social History Tobacco Use Types Packs/Day Years Used Date Smoking Tobacco: Every Day Cigarettes Smokeless Tobacco: Never Depression Answer Date Recorded Patient Health Questionnaire-9 Score 0 11/03/2022 Depression Answer Date Recorded Patient Health Questionnaire-2 Score 0 11/03/2022 Comments Unknown Sex and Gender Information Value Date Recorded Sex Assigned at Female 04/03/2022 10:14 AM EDT Legal Sex Female 10:14 AM EDT Gender Identity Female 04/03/2022 10:14 AM EDT Sexual Orientation Straight 04/03/2022 10 :14 AM EDT documented as of this encounter Miscellaneous Notes * Telephone Encounter - Carla Wyatt - 02/19/2023 9:08 AM EDT Tc from patient requesting a med refill for medication oxycodone [address] Sams documented in this encounter Plan of Treatment Upcoming Encounters Date Type Department Care Team (Late st Contact Info) Description 09/12/2024 10:30 AM EDT Clinical Support [address] [address] Viridiana Hernández, RN 505 [place] [address] 10/03/2024 10:30 AM EDT Office Visit [facility] MEDICINE [address] [place] [address] Marjan Sams MD [address] [place] [address] documented as of this encounter Visit Diagnoses Not on filedocumented in this encounter Additional Health Concerns Assessment Noted Time PHQ-9 Depression Total Score: 0 11/04/19 23 10:28 AM EDT documented as of this encounter Care Teams Sap Bpc Architect Relationship Specialty Start Date End Date Marjan Sams MD [address] [place] [address] PCP - General Family Medicine 06/04/18 Esteban Nice MD [address] [place] [address] [place] [address] Rheumatology 05/21/24 Ashley Chanel OD [facility] [place] [address] Optometry 05/21/24 documented as of this encounter
--- OUTSIDE RECORDS SUMMARY | 2024-08-28 11:29 | XMS_ITS | Encounter Summary ---
Author Organization [employer] Address 75 [facility] 7t [place] [address] Care Team Providers Care Sports Specialist Name Role Phone Marjan Sams MD Primary Care Provider [phone]- [phone] Esteban Nice MD Unavailable Ashley Chanel OD Unavailable Encounter Details Date Type Department Care Team (Latest Contact Info) Description 08/01/2024 Travel Social History Tobacco Use Types Packs/Day [...] Description 09/12/2024 10:30 AM EDT Clinical Support [facility] MEDICINE [address] [place] [address] Viridiana Hernández RN 505 [place] [address] 10/03/2024 10:30 AM EDT Office Visit [facility] MEDICINE [address] [place] [address] Marjan Sams MD [address] [place] [address] documented as of this encounter Visit Diagnoses Not on filedocumented in this encounter Additional Health Concerns Assessment Noted Time PHQ-9 Depression Total Score: 4 02/13/20 24 9:45 AM EDT documented as of this encounter Care Teams Sports Specialist Relationship Specialty Start Date End Date Marjan Sams MD [address] [place] [address] PCP - General Family Medicine 06/04/18 Esteban Nice MD [address] [place] [address] Rheumatology 05/21/24 Ashley Chanel OD [address] [place] [address] Optometry 05/21/24 documented as of this encounter
--- OUTSIDE RECORDS SUMMARY | 2024-08-28 11:29 | XMS_ITS | Encounter Summary ---
Author Organization [employer] Address 75 [facility] 7t [place] [address] Care Team Providers Care Cms Expert Name Role Phone Marjan Sams MD Primary Care Provider +1- [phone] Esteban Nice MD Unavailable Ashley Chanel OD Unavailable [phone] Reason for Visit * Reason Onset Date Comments Call Back Request 08/18/2024 Encounter Details Date Type Department Care Team (Late st Contact Info) Description 08/18/2024 Telephone [facility] MEDICINE 230 [place] [address] Marjan Sams MD 230 [place] [address] Call Back Request Social History Tobacco Use Types Packs/Day [...] encounter Miscellaneous Notes * Telephone Encounter - Maite Christian LPN - 08/18/2024 10:15 AM EDT Triage call to patient who repots dizziness with standing yesterday. She had been laying down and when she went to get up she had feeling of lightheadedness and felt off balance. No spinning sensation no fainting. Is unable to monitor BP at home no machine. Patient reports good fluid intake. Disposition reviewed and patient in agreement with plan. aSK/Zenaida DO tomorrow at 12noon. Protocol Used: Dizziness (Adult) Protocol-Based Disposition: See in Office or Video Visit Today Video visit not offered Positive Triage Question: * Patient wants to be seen * All higher-acuity triage questions were negative Care Advice Discussed: * Sit Up Slowly Before Standing * Drink Fluids * Lie Down and Rest * Reasons To Call Back - After 2 hours of rest and fluids and you are still feeling dizzy - You pass out (faint) or are too weak to stand - You become worse * Telephone Encounter - Pj Mondragon - 08/18/2024 9:55 AM EDT Tc from pt returning call regarding prior message. Contact pt at [phone] * Telephone Encounter - Thais Harrison RN - 08/18/2024 9:28 AM EDT Called pt. No answer. Left message on pt. Voicemail to call back [facility] nurses at [phone]. Called back x2. No answer. RE: Dizziness and wanting blood work done. * Telephone Encounter - Cee Gama - 08/18/2024 8:33 AM EDT Tc from pt requesting a call back from pcp, pt states she felt dizzy over the weekend and would like to receive an order to have some lab work done. documented in this encounter Plan of Treatment Upcoming Encounters Date Type Department Care Team (Late st Contact Info) Description 09/12/2024 10:30 AM EDT Clinical Support [address] [address] Viridiana Hernández, KIMBERLY 505 [place] [address] 10/03/2024 10:30 AM EDT Office Visit [facility] MEDICINE [address] [place] [address] Marjan Sams MD [address] [place] [address] documented as of this encounter Visit Diagnoses Not on filedocumented in this encounter Additional Health Concerns Assessment Noted Time PHQ-9 Depression Total Score: 4 02/13/20 24 9:45 AM EDT documented as of this encounter Care Teams Cms Expert Relationship Specialty Start Date End Date Marjan Sams MD [address] [place] [address] PCP - General Family Medicine 06/04/18 Esteban Nice MD [address] [place] [address] Rheumatology 05/21/24 Ashley Chanel OD [address] [place] [address] Optometry 05/21/24 documented as of this encounter
--- OUTSIDE RECORDS SUMMARY | 2024-08-28 11:29 | XMS_ITS | Encounter Summary ---
Author Organization [employer] Address 75 [facility] 7t [place] [address] Care Team Providers Care Pocket Builder Name Role Phone Marjan Sams MD Primary Care Provider +1- [phone] Esteban Nice MD Unavailable Ashley Chanel OD Unavailable [phone] Encounter Details Date Type Department Care Team ([facility] st Contact Info) Description 08/01/[address] [facility] MED & PEDS 505 [place] [address] Viridiana Hernández, RN 505 [place] [address] Social History Tobacco Use Types Packs/Day Years [...] is your housing situation today? I have lyndagerardo alexander 02/13/[address] you [...] encounter Miscellaneous Notes * Telephone Encounter - Viridiana Hernández RN - 08/01/2024 10:26 AM EST .What NETWORK SUPPORT ADMINISTRATOR Tier would you like this patient to be? Tier 1 = HIGH RISK, Monthly NETWORK SUPPORT ADMINISTRATOR visits Tier 2 = MODerate RISK, Q3 Month visits Tier 3 = LOW RISK = Q4-6 month visits documented in this encounter Plan of Treatment Upcoming Encounters Date Type Department Care Team (Late st Contact Info) Description 09/12/2024 10:30 AM EDT Clinical Support [facility] MEDICINE [address] [place] [address] Viridiana Hernández RN 505 [place] [address] 10/03/2024 10:30 AM EDT Office Visit [facility] MEDICINE [address] [place] [address] Marjan Sams MD 230 [place] [address] documented as of this encounter Visit Diagnoses Not on filedocumented in this encounter Additional Health Concerns Assessment Noted Time PHQ-9 Depression Total Score: 4 02/13/20 24 9:45 AM EDT documented as of this encounter Care Teams Pocket Builder Relationship Specialty Start Date End Date Marjan Sams MD 230 [place] [address] PCP - General Family Medicine 06/04/18 Esteban Nice MD [address] [place] [address] Rheumatology 05/21/24 Ashley Chanel OD 180 [place] [address] Optometry 05/21/24 documented as of this encounter
--- OUTSIDE RECORDS SUMMARY | 2024-08-28 11:29 | XMS_ITS | Encounter Summary ---
Author Organization [employer] Address [address] [place] [address] 7t [place] [address] Care Team Providers Care Bowl Topper Name Role Phone Marjan Sams MD Primary Care Provider +1- [phone] Esteban Nice MD Unavailable Ashley Chanel OD Unavailable [phone] Reason for Visit * Reason Onset Date Comments Med Refill 01/19/2023 Encounter Details Date Type Department Care Team (Late st Contact Info) Description 01/19/2023 Telephone [facility] MEDICINE [address] [place] [address] Marjan Sams MD 230 [place] [address] Med Refill Social History Tobacco Use Types [...] encounter Miscellaneous Notes * Telephone Encounter - Ranjan Kingsleyrero - 01/19/2023 10:23 AM EDT Tc from pt requesting med refill on oxyCODONE-acetaminophen (Percocet) 5-325 MG tablet Please sent to [facility]/pharmacy #[id number] - [place], [place] - [address] [facility] [address] documented in this encounter Plan of Treatment Upcoming Encounters Date Type Department Care Team ([facility] st Contact Info) Description 09/12/2024 10:30 AM EDT Clinical Support [facility] MEDICINE [address] [place] [address] Viridiana Hernández, RN 505 [place] [address] 10/03/2024 10:30 AM EDT Office Visit [facility] MEDICINE [address] [place] [address] Marjan Sams MD [address] [place] [address] documented as of this encounter Visit Diagnoses Not on filedocumented in this encounter Additional Health Concerns Assessment Noted Time PHQ-9 Depression Total Score: 0 11/04/19 23 10:28 AM EDT documented as of this encounter Care Teams Bowl Topper Relationship Specialty Start Date End Date Marjan Sams MD [address] [place] [address] PCP - General Family Medicine 06/04/18 Esteban Nice MD [address] [place] [address] [place] [address] Rheumatology 05/21/24 Ashley Chanel OD 180 [place] [address] Optometry 05/21/24 documented as of this encounter
--- OUTSIDE RECORDS SUMMARY | 2024-08-28 11:29 | XMS_ITS | Encounter Summary ---
Author Organization [employer] Address 75 [facility] 7t [place] [address] Care Team Providers Care Corporate Securities Research Analyst Name Role Phone Marjan Sams MD Primary Care Provider +1- [phone] Esteban Nice MD Unavailable Ashley Chanel OD Unavailable [phone] Encounter Details Date Type Department Care Team (Late st Contact Info) Description 08/19/2024 12:00 PM EDT Office Visit [facility] MEDICINE 230 [place] [address] Elizabeth Ly DO [address] [place], [place] [phone] Social History Tobacco Use Types Packs/Day Years [...] AM EDT documented as of this encounter Last Filed Vital Signs Vital Sign Reading Time Taken Comments Blood Pressure 96/64 08/19/2024 1:09 PM EDT Pulse 78 08/19/2024 12:35 PM EDT Temperature 37.4 ??C (99.4 ??F) 08/19/2024 12:35 PM E DT Respiratory Rate 19 08/19/2024 12:35 PM EDT Oxygen Saturation 95% 08/19/2024 12:35 PM EDT Inhaled Oxygen Concentration - - Weight 68 kg (150 lb) 08/19/2024 12:35 PM EDT Height 160 cm (5' 3 ) 08/19/2024 12:35 PM EDT Body Mass Index 26.57 08/19/2024 12:35 PM EDT documented in this encounter Plan of Treatment Upcoming Encounters Date Type Department Care Team (Late st Contact Info) Description 09/12/2024 10:30 AM EDT Clinical Support [facility] MEDICINE [address] [place] [address] Viridiana Hernández RN 505 [place] [address] 10/03/2024 10:30 AM EDT Office Visit [facility] MEDICINE [address] [place] [address] Marjan Sams MD 230 [place] [address] documented as of this encounter Visit Diagnoses Not on filedocumented in this encounter Additional Health Concerns Assessment Noted Time PHQ-9 Depression Total Score: 4 02/13/20 24 9:45 AM EDT documented as of this encounter Care Teams Corporate Securities Research Analyst Relationship Specialty Start Date End Date Marjan Sams MD [address] [place] [address] PCP - General Family Medicine 06/04/18 Esteban Nice MD [address] [place] [address] Rheumatology 05/21/24 Ashley Chanel OD [address] [place] [address] Optometry 05/21/24 documented as of this encounter
--- OUTSIDE RECORDS SUMMARY | 2024-08-28 11:29 | XMS_ITS | Encounter Summary ---
Author Organization [employer] Address 75 [facility] 7t [place] [address] Care Team Providers Care Development Editor Name Role Phone Marjan Sams MD Primary Care Provider [phone]- [phone] Esteban Nice MD Unavailable Ashley Chanel OD Unavailable [phone] Reason for Visit * Reason Comments Med Refill Encounter Details Date Type Department Care Team (Late st Contact Info) Description 10/19/2023 Refill [facility] MEDICINE 230 [place] [address] Lluvia Mendoza MD 230 [place] [address] History of DVT (deep vein thrombosis) Social History Tobacco Use Types Packs/Day Years Used Date Smoking Tobacco: Every Day Cigarettes Smokeless Tobacco: Never Alcohol Use Standard Drinks/Week Comments Yes 0 (1 standard drink = 0.6 oz pur e alcohol) weekends Depression Answer Date Recorded Patient Health Questionnaire-9 Score 0 11/03/2022 Housing Stability Answer Date Recorded What is your housing situation today? I have lyndagerardo alexander 03/20/[address] you li ve. Do you have problems with any of the following? None of the above 03/20/2023 Food Insecurity Answer Date Recorded Within the past 12 months, y ou worried that your food would run out before you got money to buy more: Never True 03/20/2023 Within the past 12 months,th e food you bought just didn't last and you didn't have enough money to get more: Never True Transportation Answer Date Recorded In the past 12 months, has l ack of transportation kept you from medical appts, meetings, work or from getting things needed for daily living? Yes, it has kept me from medical appointments or getting medications. 03/11/2023 Utilities Answer Date Recorded In the past 12 months, has t he electric, gas, oil or water company threatened to shut off services in your home? No 03/20/2023 Depression Answer Date Recorded Patient Health Questionnaire-2 [...] Description 09/12/2024 10:30 AM EDT Clinical Support [facility] MEDICINE [address] [place] [address] Viridiana Hernández, RN 505 [place] [address] 10/03/2024 10:30 AM EDT Office Visit [facility] MEDICINE [address] [place] [address] Marjan Sams MD [address] [place] [address] documented as of this encounter Visit Diagnoses Diagnosis History of DVT (deep vein thrombosis) documented in this encounter Additional Health Concerns Assessment Noted Time PHQ-9 Depression Total Score: 0 11/04/19 23 10:28 AM EDT documented as of this encounter Care Teams Development Editor Relationship Specialty Start Date End Date Marjan Sams MD [address] [place] [address] PCP - General Family Medicine 06/04/18 Esteban Nice MD [address] [place] [address] Rheumatology 05/21/24 Ashley Chanel OD [address] [place] [address] Optometry 05/21/24 documented as of this encounter
--- OUTSIDE RECORDS SUMMARY | 2024-08-28 11:29 | XMS_ITS | Encounter Summary ---
Author Organization [employer] Address [address] [facility] 7t [place] [address] Care Team Providers Care Electromagnet Crane Operator Name Role Phone Marjan Sams MD Primary Care Provider [phone]- [phone] Esteban Nice MD Unavailable Ashley Chanel OD Unavailable [phone] Reason for Visit * Reason Comments Med Refill Encounter Details Date Type Department Care Team (Late st Contact Info) Description 07/25/2023 Refill [facility] [address] [place] [address] Marjan Sams MD [address] [place] [address] Arthritis of both knees Social History Tobacco Use Types Packs/Day Years Used Date Smoking Tobacco: Every Day Cigarettes Smokeless Tobacco: Never Alcohol Use Standard Drinks/Week Comments Yes 0 (1 standard drink = 0.6 oz pur e alcohol) weekends Depression Answer Date Recorded Patient Health Questionnaire-9 Score 0 11/03/2022 Housing Stability Answer Date Recorded What is your housing situation today? I have lynda alexander 03/20/[address] you [...] Description 09/12/2024 10:30 AM EDT Clinical Support [facility] [address] [place] [address] Viridiana Hernández, KIMBERLY [address] [place] [address] 10/03/2024 10:30 AM EDT Office Visit [facility] [address] [place] [address] Marjan Sams MD [address] [place] [address] documented as of this encounter Visit Diagnoses Diagnosis Arthritis of both knees documented in this encounter Additional Health Concerns Assessment Noted Time PHQ-9 Depression Total Score: 0 11/04/19 23 10:28 AM EDT documented as of this encounter Care Teams Electromagnet Crane Operator Relationship Specialty Start Date End Date Marjan Sams MD [address] [place] [address] PCP - General Family Medicine 06/04/18 Esteban Nice MD [address] [address] Rheumatology 05/21/24 Ashley Chanel OD [address] [place], [place] [phone] Optometry 05/21/24 documented as of this encounter
--- OUTSIDE RECORDS SUMMARY | 2024-08-28 11:29 | XMS_ITS | Encounter Summary ---
Author Organization [employer] Address 75 [facility] 7t [place] [address] Care Team Providers Care Accounting Manager Name Role Phone Marjan Sams MD Primary Care Provider [phone]- [phone] sEteban Nice MD Unavailable Ashley Chanel OD Unavailable [phone] Reason for Visit * Reason Comments controlled substance treatment Encounter Details Date Type Department Care Team (Latest Contact Info) Description 08/01/2024 10:00 AM EST Clinical Support [facility] [address] [place] [address] Viridiana Hernández RN [address] [place] [address] Chronically on opiate therapy Social History Tobacco Use Types Packs/Day Years [...] AM EDT documented as of this encounter Progress Notes * Viridiana Hernández RN - 08/01/2024 10:00 AM EST S: Pt here for BREWERY WORKER NV. Prescribed Oxycodone-acetaminophen 5mg-325mg PO q12h PRN. States has been taking as prescribed. Pt reports smoking 1/2 pack of cigarettes a day. Pt reports having an alcoholic beverage on the weekends. Advised pt about the dangers of mixing narcotics and alcohol; pt verbalized understanding, reports she does not use them close together. Currently rates pain a 6/10 and states medication is usually 20% effective at alleviating pain. Current pain sites are her knees and upper back. States cold weather is making pain worse. No questions/ concerns at this time. O: FOR[employer] FORMS verified today. Rx last filled on 07/24/24. Pill count performed. Pt has 41 pills at this time, 39 expected. Medication is not overused by patient. Last PCP visit was 02/13/24. UTOX completed. Positive for OXY only, as expected. A: BREWERY WORKER Agreement Renewal: Opioid dependence related to chronic pain. P: Patient to continue taking medication only as prescribed; Next BREWERY WORKER RV appointment scheduled for 09/12/24 @ 10:30am. Reminder slip given. F/U sooner PRN. Patient verbalized understanding and agreed to plan. documented in this encounter Plan of Treatment Upcoming Encounters Date Type Department Care Team (Late st Contact Info) Description 09/12/2024 10:30 AM EDT Clinical Support [address] [address] Viridiana Hernández RN [address] [place] [address] 10/03/2024 10:30 AM EDT Office Visit [address] [address] Marjan Sams MD [address] [place] [address] [phone] documented as of this encounter Procedures Procedure Name Priority Date/Time Associated Diagnosis Comments POCT BLADE-14 URINE DRUG SCREEN Routine 08/01/2024 9:53 AM EST Chronically on opiate therapy documented in this encounter Results * POCT BLADE-14 Urine Drug Screen (08/01/2024 9:53 AM EST) Oxycodone Screen, Urine Positive Urine Urine specimen obtained by clean catch procedure / Unknown 08/01/2024 9:53 AM EST Narrative Viridiana Hernández RN - 08/01/2024 9:53 AM EST .UTOX cup Lot#[id number] Exp. 01/21/26 Internal Pass Control Marjan Sams MD POINT OF CARE TEST ENTER/E DIT ORDERABLES Final Result documented in this encounter Visit Diagnoses Diagnosis Chronically on opiate therapy documented in this encounter Additional Health Concerns Assessment Noted Time PHQ-9 Depression Total Score: 4 02/13/20 24 9:45 AM EDT documented as of this encounter Care Teams Accounting Manager Relationship Specialty Start Date End Date Marjan Sams MD [address] [place] [address] [phone] PCP - General Family Medicine 06/04/18 Esteban Nice MD [address] [address] Rheumatology 05/21/24 Ashley Chanel OD [address] [place] [address] Optometry 05/21/24 documented as of this encounter
--- OUTSIDE RECORDS SUMMARY | 2024-08-28 11:29 | XMS_ITS | Encounter Summary ---
Author Organization [employer] Address 75 [facility] 7t [place] [address] Care Team Providers Care Cleaner Industrial Name Role Phone Marjan Sams MD Primary Care Provider [phone]- [phone] Esteban Nice MD Unavailable Ashley Chanel OD Unavailable Reason for Visit * Reason Onset Date Comments Med Refill 08/20/2024 Encounter Details Date Type Department Care Team (Late st Contact Info) Description 08/20/2024 Telephone [facility] [address] [place] [address] Marjan Sams MD [address] [place] [address] Med Refill Social History Tobacco Use Types [...] encounter Miscellaneous Notes * Telephone Encounter - Pj Mondragon - 08/20/2024 8:09 AM EDT TC from pt requesting medication refill. Medications needing refill : oxyCODONE-acetaminophen (Percocet) 5-325 MG tablet To be sent to: [facility]/pharmacy #[id number] [place] [address] documented in this encounter Plan of Treatment Upcoming Encounters Date Type Department Care Team (Late st Contact Info) Description 09/12/2024 10:30 AM EDT Clinical Support [facility] [address] [place] [address] Viridiana Hernández RN 505 [place] [address] 10/03/2024 10:30 AM EDT Office Visit [facility] [address] [place] [address] Marjan Sams MD [address] [place], [place] [phone] documented as of this encounter Visit Diagnoses Not on filedocumented in this encounter Additional Health Concerns Assessment Noted Time PHQ-9 Depression Total Score: 4 02/13/20 24 9:45 AM EDT documented as of this encounter Care Teams Cleaner Industrial Relationship Specialty Start Date End Date Marjan Sams MD [address] [place] [address] PCP - General Family Medicine 06/04/18 Esteban Nice MD [address] [place] [address] [address] [place] [address] Rheumatology 05/21/24 Ashley Chanel OD [address] [place] [address] Optometry 05/21/24 documented as of this encounter
--- OUTSIDE RECORDS SUMMARY | 2024-08-28 11:29 | XMS_ITS | Encounter Summary ---
Author Organization [employer] Address [address] [place] [address] 7t [place] [address] Care Team Providers Care Welder Metal Fab Name Role Phone Marjan Sams MD Primary Care Provider [phone]- [phone] Esteban Nice MD Unavailable Ashley Chanel OD Unavailable [phone] Encounter Details Date Type Department Care Team (Late st Contact Info) Description 06/29/[address] [address] Marjan Sams MD [address] [place] [address] Social History Tobacco Use Types Packs/Day Years Used Date Smoking Tobacco: Never Assessed Comments Unknown Sex and Gender Information Value [...] Description 09/12/2024 10:30 AM EDT Clinical Support [address] [address] Viridiana Hernández RN [address] [place] [address] 10/03/2024 10:30 AM EDT Office Visit [address] [address] Majran Sams MD [address] [place] [address] documented as of this encounter Procedures Procedure Name Priority Date/Time Associated Diagnosis Comments PAP SMEAR Routine 08/10/2017 12:00 AM EST HM COLONOSCOPY Routine 03/30/2017 12:40 PM EDT documented in this encounter Results * Pap Smear (08/10/2017 12:00 AM EST) Swab Historical Provider LAB CYTOLOGY ORDERABLES F inal Result IMAGING * Hm Colonoscopy (03/30/2017 12:40 PM EDT) Historical Provider HEALTH MAINTENANCE Final Result documented in this encounter Visit Diagnoses Not on filedocumented in this encounter Care Teams Welder Metal Fab Relationship Specialty Start Date End Date Marjan Sams MD [address] [place] [address] PCP - General Family Medicine 06/04/18 Esteban Nice MD [address] [place] [address] Rheumatology 05/21/24 Ashley Chanel OD [address] [place] [address] Optometry 05/21/24 documented as of this encounter
--- OUTSIDE RECORDS SUMMARY | 2024-08-28 11:29 | XMS_ITS | Encounter Summary ---
Author Organization [employer] Address 75 [facility] 7t [place] [address] Care Team Providers Care Bicycle Taxi Driver Name Role Phone Marjan Sams MD Primary Care Provider [phone]- [phone] Esteban Nice MD Unavailable Ashley Chanel OD Unavailable [phone] Reason for Visit * Reason Onset Date Comments Med Refill 08/01/2024 Error (VOID this visit) 08/01/2024 Encounter Details Date Type Department Care Team ([facility] st Contact Info) Description 08/01/2024 Refill [facility] [address] [place] [address] Viridiana Hernández, KIMBERLY [address] [place] [address] Social History Tobacco Use Types Packs/Day Years [...] Description 09/12/2024 10:30 AM EDT Clinical Support [facility] [address] [place] [address] Viridiana Hernández RN [address] [place] [address] 10/03/2024 10:30 AM EDT Office Visit [facility] [address] [place] [address] Marjan Sams MD [address] [address] documented as of this encounter Visit Diagnoses Not on filedocumented in this encounter Additional Health Concerns Assessment Noted Time PHQ-9 Depression Total Score: 4 02/13/20 24 9:45 AM EDT documented as of this encounter Care Teams Bicycle Taxi Driver Relationship Specialty Start Date End Date Marjan Sams MD [address] [place] [address] PCP - General Family Medicine 06/04/18 Esteban Nice MD [address] [address] Rheumatology 05/21/24 Ashley Chanel OD [address] [place] [address] Optometry 05/21/24 documented as of this encounter
--- OUTSIDE RECORDS SUMMARY | 2024-08-28 11:29 | XMS_ITS | Encounter Summary ---
Author Organization [employer] Address 75 [facility] 7t [place] [address] Care Team Providers Care Home Health Lvn Name Role Phone Marjan Sams MD Primary Care Provider [phone] Esteban Nice MD Unavailable Ashley Chanel OD Unavailable [phone] Encounter Details Date Type Department Care Team (Late st Contact Info) Description 03/22/2023 Abstract [facility] [address] [place] [address] Marjan Sams MD [address] [place] [address] Preventative health care; Osteoarthritis of knee, unspecified laterality, unspecified osteoarthritis type Social History Tobacco Use Types Packs/Day Years Used Date Smoking Tobacco: Every Day Cigarettes Smokeless Tobacco: Never Depression Answer Date Recorded Patient Health Questionnaire-9 Score 0 11/03/2022 Housing Stability Answer Date Recorded What is your housing situation today? I have lydna alexander 03/20/[address] you [...] Description 09/12/2024 10:30 AM EDT Clinical Support [facility] [address] [place] [address] Viridiana Hernández RN [address] [place] [address] 10/03/2024 10:30 AM EDT Office Visit [facility] [address] [place] [address] Marjan Sams MD [address] [place] [address] documented as of this encounter Visit Diagnoses Diagnosis Preventative health care Routine general medical examination at a health care facility Osteoarthritis of knee, unspecified laterality, unspecified osteoarthritis type documented in this encounter Additional Health Concerns Assessment Noted Time PHQ-9 Depression Total Score: 0 11/04/19 23 10:28 AM EDT documented as of this encounter Care Teams Home Health Lvn Relationship Specialty Start Date End Date Marjan Sams MD [address] [place] [address] PCP - General Family Medicine 06/04/18 Esteban Nice MD [address] [address] Rheumatology 05/21/24 Ashley Chanel OD [address] [place], [place] [phone] Optometry 05/21/24 documented as of this encounter
--- OUTSIDE RECORDS SUMMARY | 2024-08-28 11:29 | XMS_ITS | Encounter Summary ---
Author Organization [employer] Address 75 [facility] 7t [place] [address] Care Team Providers Care Field Cashier Name Role Phone Marjan Sams MD Primary Care Provider [phone]- [phone] Esteban Nice MD Unavailable Ashley Chanel OD Unavailable [phone] Reason for Visit * Reason Onset Date Comments Nurse Triage 09/18/2023 Encounter Details Date Type Department Care Team (Late st Contact Info) Description 09/18/[address] [facility] [address] [place] [address] Marjan Sams MD [address] [place] [address] Nurse Triage Social History Tobacco Use Types Packs/Day Years [...] encounter Miscellaneous Notes * Telephone Encounter - Nikki Small - 09/18/2023 11:29 AM EDT Symptom: Headache Outcome: Schedule a same-day appointment or talk to a nurse or provider today Reason: Caller denied all higher acuity questions The caller accepted this outcome documented in this encounter Plan of Treatment Upcoming Encounters Date Type Department Care Team (Late st Contact Info) Description 09/12/2024 10:30 AM EDT Clinical Support [facility] [address] [place] [address] Viridiana Hernández RN [address] [place] [address] 10/03/2024 10:30 AM EDT Office Visit [facility] [address] [place] [address] Marjan Sams MD [address] [place] [address] documented as of this encounter Visit Diagnoses Not on filedocumented in this encounter Additional Health Concerns Assessment Noted Time PHQ-9 Depression Total Score: 0 11/04/19 10:28 AM EDT documented as of this encounter Care Teams Field Cashier Relationship Specialty Start Date End Date Marjan Sams MD [address] [place] [address] PCP - General Family Medicine 06/04/18 Esteban Nice MD [address] [place] [address] [address] [place] [address] Rheumatology 05/21/24 Ashley Chanel OD [address] [place] [address] Optometry 05/21/24 documented as of this encounter
--- OUTSIDE RECORDS SUMMARY | 2024-08-28 11:30 | XMS_ITS | Encounter Summary ---
Author Organization [employer] Address [address] [place] [address] [address] [place] [address] Care Team Providers Care Machine Shop Lead Man Name Role Phone Marjan Sams MD Primary Care Provider [phone] Esteban Nice MD Unavailable Ashley Chanel OD Unavailable [phone] Reason for Referral * Neurology (Routine) - Authorized Specialty Diagnoses / Procedures Referred By Kristine garcia Referred To Contact Diagnoses Left foot pain Paresthesia of left foot Procedures Nerve conduction test Elizabeth Ly DO [address] [place], [place] Phone: tel: fax: [address] Phone: tel: fax: Referral ID Status Reason Start Date Expiration Date V isits Requested Visits Authorized [id number] Authorized 08/28/2024 08/28/2025 1 1 * Neurology (Routine) - Authorized Specialty Diagnoses / Procedures Referred By Kristine garcia Referred To Contact Diagnoses Left foot pain Paresthesia of left foot Procedures EMG Elizabeth Ly DO [address] [place] [address] Phone: tel: fax: [address] Phone: tel: fax: Referral ID Status Reason Start Date Expiration Date V isits Requested Visits Authorized [id number] Authorized 08/28/2024 08/28/2025 1 1 Reason for Visit * Reason Comments Foot Pain Encounter Details Date Type Department Care Team (Late st Contact Info) Description 08/28/2024 9:00 AM EDT Office Visit [facility] [address] [place] [address] Elizabeth Ly DO [address] [place], [place] [phone] Left foot pain (Primary Dx); Paresthesia of left foot Social History Tobacco Use Types Packs/Day Years [...] Sign Reading Time Taken Comments Blood Pressure 149/75 08/28/2024 9:09 AM EDT Pulse 71 08/28/2024 9:09 AM EDT Temperature 36.1 ??C (97 ??F) 08/28/2024 9:09 AM EDT Respiratory Rate 18 08/28/2024 9:09 AM EDT Oxygen Saturation 98% 08/28/2024 9:09 AM EDT Inhaled Oxygen Concentration - - Weight 68.7 kg (151 lb 6.4 oz) 08/28/2024 9:09 A M EDT Height - - Body Mass Index 26.82 08/19/2024 12:35 PM EDT documented in this encounter Progress Notes * Elizabeth Ly, DO - 08/28/2024 9:00 AM EDT SUBJECTIVE: Tammy Moeller is a 59 y.o. year old female who presents for sick visit . She comes to walk in c/o L foot pain. She says that it's been going on for a while. She says that she has bad circulation and she felt her foot cold so she started looking on the internet and everything told her to come in and get checked. She reports a cold sensation in her foot. She feels numbness and tingling in her foot and has been trying to shake it out . She denies any swelling or redness. No bruising. No trauma to her foot. Her N/T sx are worse at night and she has trouble sleeping. No h/o DM. History provided by: Patient check services clerk used: No Ankle Pain There was no injury mechanism. The pain is present in the left foot. The pain is moderate. The painhas been Fluctuating since onset. Associated symptoms include numbness and tingling. Pertinent negatives include no inability to bear weight, loss of motion, loss of sensation or muscle weakness. Shehas tried nothing for the symptoms. Review of Systems Constitutional: Negative for chills and fever. Eyes: Negative for visual disturbance. Respiratory: Negative for shortness of breath. Cardiovascular: Negative for chest pain and leg swelling. Gastrointestinal: Negative for abdominal pain, diarrhea and vomiting. Musculoskeletal: Negative for gait problem and joint swelling. Skin: Negative for color change, rash and wound. Neurological: Positive for tingling and numbness. Negative for dizziness and headaches. Patient Active Problem List Diagnosis Dyslipidemia Hypertension Insomnia Systemic lupus erythematosus ([facility]) Osteoarthritis of knee Tobacco dependence syndrome Obstructive sleep apnea Diverticulitis Primary osteoarthritis of hands, bilateral COPD (chronic obstructive pulmonary disease) ([facility]) Preventative health care History of DVT (deep vein thrombosis) Current chronic use of systemic steroids Anemia Cardiac risk counseling Long-term current use of opiate analgesic No Known Allergies OBJECTIVE Vitals: 08/28/24 0909 BP: (!) 149/75 BP Location: Right arm Patient Position: Sitting BP Cuff Size: Adult Pulse: 71 Resp: 18 Temp: 97 ??F (36.1 ??C) TempSrc: Temporal SpO2: 98% Weight: 151 lb 6.4 oz (68.7 kg) Physical Exam Constitutional: General: She is not in acute distress. Appearance: Normal appearance. Cardiovascular: Rate and Rhythm: Normal rate and regular rhythm. Pulses: Dorsalis pedis pulses are 2+ on the right side and 2+ on the left side. Posterior tibial pulses are 2+ on the right side and 2+ on the left side. Heart sounds: Normal heart sounds. No murmur heard. Comments: Feet warm Pulmonary: Effort: Pulmonary effort is normal. Breath sounds: Normal breath sounds. No wheezing or rhonchi. Musculoskeletal: Right lower leg: No edema. Left lower leg: No edema. Skin: Capillary Refill: Capillary refill takes less than 2 seconds. Neurological: General: No focal deficit present. Mental Status: She is alert and oriented to person, place, and time. Cranial Nerves: No cranial nerve deficit. Sensory: Sensation is intact. Motor: No weakness. Gait: Gait normal. Comments: LT sensation equal b/l LE Psychiatric: Mood and Affect: Mood normal. ASSESSMENT/PLAN Diagnoses and all orders for this visit: Left foot pain Paresthesia of left foot Persistent pain and paresthesias for several mos, sx worse at night, ? Neuropathy -referred for foot xrays -referred for EMG/NCS -trial gabapentin nightly, reviewed potential side effects with patient -advised rtc if sx change or worsen, she agrees with plans - XR Foot 3+ Views Left; Future F/U with PCP as scheduled or sooner prn Current Outpatient Medications: albuterol 108 (90 Base) MCG/ACT inhaler, Take 2 puffs po q 4 hours prn, Disp: 18 g, Rfl: 1 aspirin (Aspirin Low Dose) 81 MG EC tablet, Take 1 tablet (81 mg) by mouth Once per day., Disp: 90 tablet, Rfl: 3 Blood Pressure kit, 1 each 1 (one) time per week., Disp: 1 kit, Rfl: 0 Fluticasone Furoate-Vilanterol (Breo Ellipta) 200-25 MCG/ACT aerosol powder , Inhale 1 Inhalation. Once per day., Disp: 1 each, Rfl: 11 gabapentin (Neurontin) 300 MG capsule, Take 1 capsule (300 mg) by mouth at bedtime., Disp: 30 capsule, Rfl: 3 hydroxychloroquine (Plaquenil) 200 MG tablet, Take 200 mg by mouth 2 times daily. Per rheumatology,Disp: , Rfl: levalbuterol (Xopenex) 1.25 MG/3ML nebulizer solution, Use 3 ml po q 4 hours prn, Disp: 300 mL, Rfl: 3 naloxone (Narcan) 4 mg/0.1 mL nasal spray, Administer 1 spray (4 mg) into affected nostril(s) if needed for opioid reversal., Disp: 2 each, Rfl: 0 nicotine polacrilex (Commit) 4 MG lozenge, Dissolve 1 lozenge (4 mg) in the mouth every 2 (two) hours if needed for smoking cessation., Disp: 100 lozenge, Rfl: 0 oxyCODONE-acetaminophen (Percocet) 5-325 MG tablet, Take 1 tablet by mouth every 12 (twelve) hours if needed for severe pain., Disp: 56 tablet, Rfl: 0 documented in this encounter Plan of Treatment Upcoming Encounters Date Type Department Care Team (Late st Contact Info) Description 09/12/2024 10:30 AM EDT Clinical Support [facility] [address] [facility] [place] [address] Viridiana Hernández RN [address] [place] [address] 10/03/2024 10:30 AM EDT Office Visit [facility] [address] [facility] [place] [address] Marjan Sams MD [address] [place] [address] Scheduled Orders Name Type Priority Associated Diagnoses Orde r Schedule EMG Neurology Routine Left foot pain Paresthesia of left foot Expected: 08/28/2024 (Approximate), Expires: 08/28/2025 Nerve conduction test Neurology Routine Left foot pain Paresthesia of left foot Expected: 08/28/2024 (Approximate), Expires: 08/28/2025 documented as of this encounter Procedures Procedure Name Priority Date/Time Associated Diagnosis Comments XR FOOT 3+ VIEWS LEFT Routine 08/28/2024 10:55 AM EDT Left foot pain documented in this encounter Results * XR Foot 3+ Views Left (08/28/2024 10:55 AM EDT) Anatomical Region Laterality Modality Lower Extremities, Foot Left Radiogra phic Imaging 08/28/2024 10:5 5 AM EDT Narrative 08/28/2024 10:56 AM EDT ?[facility] ?Jarod Reyes ?[place] [address] ?XRay Report ? Signed ? Patient: Sunni,Caitlyn ?MR#: [id number] ?? [id number] ? : 1965 ?Acct:[id number] ? Age/Sex: 59 / F ?ADM Date: 03/27/25 ? Loc: HO.HHCX ? Attending Dr: Elizabeth Ly DO ? Ordering Physician: Elizabeth Ly DO ?? Date of Service: 08/28/24 ?? Procedure(s): XR foot LT min 3V ?? Accession Number(s): [id number] ? cc: Elizabeth Ly DO ? CLINICAL HISTORY: foot pain and paresthesias ? 3 views left foot ? Comparison: None ? Findings: ?? Spiral nondisplaced fracture through the shaft of the 2nd proximal ?? phalanx. No angulation deformity or foreshortening ?? No periostitis or bony destruction. Mild cortical thickening and sclerosis ?? shaft 3rd metatarsal bone possible stress fracture. ?? Joint intervals are preserved. ?? Calcaneus and subtalar joint intact. ?? No significant arthritic change. ?? No plantar calcaneal spur. ?? 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 This can ?? be followed up with MRI. ?? Normal pre-Achilles fat pad. ?? No radiopaque foreign body. ? Impression: ?? 1. 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 ?? Slight cortical thickening and sclerosis mid shaft 3rd metatarsal bone ?? possible stress fracture. ?? 2. 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 with a nonemergent MRI ? This document has been electronically signed by: Modesto Huizar MD on ?? 08/28/2024 10:55:37 ? Dictated By: ?Modesto Huizar MD ? Signed By: ?<Electronically signed by Modesto Huizar MD in OV> ?08/28/24 1056 ? DD/ 1055 ? TD/TT: 08/28/24 1055 ? Railroad Signal And Switch Operator: ? Procedure Note Surjit, Image - 08/28/[address] [address] XRay Report Signed Patient: Tammy Moeller#: [id number] : 1965Acct:[id number] Age/Sex: 59 / FADM Date: 08/28/24 Loc: HO.HHCX Attending Dr: Elizabeth Ly DO Ordering Physician: Elizabeth Ly DO Date of Service: 08/28/24 Procedure(s): XR foot LT min 3V Accession Number(s): [id number] cc: Elizabeth Ly DO CLINICAL HISTORY: foot pain and paresthesias 3 views left foot Comparison: None Findings: Spiral nondisplaced fracture through the shaft of the 2nd proximal phalanx. No angulation deformity or foreshortening No periostitis or bony destruction. Mild cortical thickening and sclerosis shaft 3rd metatarsal bone possible stress fracture. Joint intervals are preserved. Calcaneus and subtalar joint intact. No significant arthritic change. No plantar calcaneal spur. 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 This can be followed up with MRI. Normal pre-Achilles fat pad. No radiopaque foreign body. Impression: 1. 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 Slight cortical thickening and sclerosis mid shaft 3rd metatarsal bone possible stress fracture. 2. 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 Dictated By: Modesto Huizar MD Signed By: <Electronically signed by Modesto Huizar MD in OV> 08/28/24 1056 DD/ 1055 TD/TT: 08/28/24 1055 [employer] Signal [employer] Operator: Elizabeth Ly DO IMG XR PROCEDURES Final Resu lt documented in this encounter Visit Diagnoses Diagnosis Left foot pain- Primary Pain in soft tissues of limb Paresthesia of left foot documented in this encounter Additional Health Concerns Assessment Noted Time PHQ-9 Depression Total Score: 4 02/13/20 24 9:45 AM EDT documented as of this encounter Care Teams Machine Shop Lead Man Relationship Specialty Start Date End Date Marjan Sams MD [address] [place] [address] PCP - General Family Medicine 06/04/18 Esteban Nice MD [address] [place] [address] Rheumatology 05/21/24 Ashley Chanel OD [address] [place] [id number] Optometry 05/21/24 documented as of this encounter
--- OUTSIDE RECORDS SUMMARY | 2024-08-28 11:30 | XMS_ITS | Encounter Summary ---
Author Organization [employer] Address [address] [facility] [address] [place] [address] Care Team Providers Care Pathology Manager Name Role Phone Marjan Sams MD Primary Care Provider [phone] Esteban Nice MD Unavailable Ashley Chanel OD Unavailable [phone] Reason for Visit * Reason Onset Date Comments Med Refill 02/21/2024 Encounter Details Date Type Department Care Team (Late st Contact Info) Description 02/21/2024 Telephone [facility] [address] [place] [address] Marjan Sams MD [address] [place] [address] Med Refill Social History Tobacco Use Types [...] encounter Miscellaneous Notes * Telephone Encounter - Kadeem Martinez - 02/21/2024 8:16 AM EDT TC from pt requesting medication refill. Medications needing refill : oxyCODONE-acetaminophen (Percocet) 5-325 MG tablet To be sent to: [facility]/pharmacy #[id number] [place] [address] documented in this encounter Plan of Treatment Upcoming Encounters Date Type Department Care Team (Late st Contact Info) Description 09/12/2024 10:30 AM EDT Clinical Support [facility] [address] [place] [address] Viridiana Hernández RN [address] [place] [address] 10/03/2024 10:30 AM EDT Office Visit [facility] [address] [place] [address] Marjan Sams MD [address] [place] [address] documented as of this encounter Visit Diagnoses Not on filedocumented in this encounter Additional Health Concerns Assessment Noted Time PHQ-9 Depression Total Score: 4 02/13/20 24 9:45 AM EDT documented as of this encounter Care Teams Pathology Manager Relationship Specialty Start Date End Date Marjan Sams MD [address] [place] [address] PCP - General Family Medicine 06/04/18 Estbean Nice MD [address] [place] [address] [address] [place] [address] Rheumatology 05/21/24 Ashley Chanel OD [address] [place] [address] Optometry 05/21/24 documented as of this encounter
--- OUTSIDE RECORDS SUMMARY | 2024-08-28 11:30 | XMS_ITS | Clinical Summary ---
Author Organization [employer] Address [address] [facility] [address] [place] [address] Care Team Providers Care Scientific Technical Writer Name Role Phone Marjan Sams MD Primary Care Provider [phone] Esteban Nice MD Unavailable Ashley Chanel OD Unavailable [phone] Allergies No known active allergies Medications levalbuterol (Xopenex) 1.25 MG/3ML nebulizer solutionIndica tions:Mild asthma with acute exacerbation, unspecified whether persistent Use 3 ml po q 4 hours prn 300 mL 3 08/11/19 23 Active nicotine polacrilex (Commit) 4 MG lozengeIndicat ions:Tobacco dependence syndrome Dissolve 1 lozenge (4 mg) in the mouth every 2 (two) hours if needed for smoking cessation. 100 lozenge 06/25/19 24 Active hydroxychloroq uine (Plaquenil) 200 MG tabletIndicati ons:Systemic lupus erythematosus, unspecified SLE type, unspecified organ involvement status (CMS/HCC) Take 200 mg by mouth 2 times daily. Per rheumatology Active naloxone (Narcan) 4 mg/0.1 mL nasal sprayIndicatio ns:Chronically on opiate therapy Administer 1 spray (4 mg) into affected nostril(s) if needed for opioid reversal. 2 each 02/13/20 24 Active aspirin (Aspirin Low Dose) 81 MG EC tabletIndicati ons:History of DVT (deep vein thrombosis) Take 1 tablet (81 mg) by mouth Once per day. 90 tablet 3 02/13/20 24 Active Fluticasone Furoate-Vilant sugar (Breo Ellipta) 200-25 MCG/ACT aerosol powderIndicati ons:Chronic obstructive pulmonary disease, unspecified COPD type (CMS/HCC) Inhale 1 Inhalation. Once per day. 1 each 02/13/20 Active albuterol 108 (90 Base) MCG/ACT inhalerIndicat ions:Chronic obstructive pulmonary disease, unspecified COPD type (CMS/HCC) Take 2 puffs po q 4 hours prn 18 g 1 02/13/20 Active Blood Pressure kit 1 each 1 (one) time per week. 1 kit 08/20/19 Active oxyCODONE-acet aminophen (Percocet) 5-325 MG tabletIndicati ons:Arthritis of both knees Take 1 tablet by mouth every 12 (twelve) hours if needed for severe pain. 56 tablet 08/21/19 Active gabapentin (Neurontin) 300 MG capsule Take 1 capsule (300 mg) by mouth at bedtime. 30 capsule 3 08/29/19 25 2025 Active oxyCODONE-acet aminophen (Percocet) 5-325 MG tabletIndicati ons:Arthritis of both knees Take 1 tablet by mouth every 12 (twelve) hours if needed for severe pain. 56 tablet 07/23/19 25 2024 Discontinued(R eorder (will not trigger notification to Pharmacy)) Active Problems Patient Care Coordination No te Formatting of this note migh t be different from the original. C3/CM Millie Whiteside RN Problem Noted Date Diagnosed Date Long-term current use of opiate analgesic 2024 Current chronic use of systemic steroids 024 Anemia 02/13/2024 Cardiac risk counseling 02/13/2024 Overview (04/24/2024): Calculated 04/24/24: low risk The 10-year ASCVD risk score (Isiah HUERTA, et al., 2019) is: 3.2% Values used to calculate the score: Age: 59 years Sex: Female Is Non- : Yes Diabetic: No Tobacco smoker: Yes Systolic Blood Pressure: 90 mmHg Is BP treated: No HDL Cholesterol: 41 mg/dL Total Cholesterol: 178 mg/dL Lab Results Component Value Date LDLCHOL 132 (H) 10/31/2022 -Atherosclerotic Cardiovascular Disease (ASCVD) Risk Calculator is intended for a person age 40-79 without ASCVD and with LDL-cholesterol < 190/mg/dl to assesses the chances of developing heart disease over the next 10 years. -Tobacco cessation: discussed -Statin therapy:N/A -Importance of moderate physical activity and nutrition interventions discussed. History of DVT (deep vein thrombosis) 06/25/2023 Overview (06/25/2023): Diagnosed 05/2015 Risk factors include Lupus and tobacco -anticoagulated with coumadin several months. Discontinue via hematology -continue ASA Assessment & Plan (06/25/2023 11:30 AM EST): Diagnosed 05/2015 Risk factors include Lupus and tobacco -anticoagulated with coumadin several months. Discontinue via hematology -continue ASA Preventative health care 03/22/2023 Overview (06/25/2023): -next physical exam due after 06/25/24 -eye care facilitated by [facility] in [place] -formerly [facility] -health care proxy: pt reports has at home 06/25/23 Assessment & Plan (06/25/2023 11:24 AM EST): -next physical exam due after 06/25/24 -eye care facilitated by [facility] in [place] -formerly [facility] -health care proxy: pt reports has at home 06/25/23 Diverticulitis 10/02/2022 Primary osteoarthritis of hands, bilateral 10/02 COPD (chronic obstructive pulmonary disease) 06/2022 Overview (02/11/2024): -Continue Breo started in hospital 07/2019 250 once a day -Continue albuterol via neb prn. -She is going great with cutting down on cigarettes from 25 per day to 5 per day as of 06/25/23 Assessment & Plan (06/25/2023 11:24 AM EST): Continue Breo started in hospital 07/2019 250 once a day Continue albuterol via neb prn. She is going great with cutting down on cigarettes from 25 per day to 5 per day as of 06/25/23 Assessment & Plan (11/02/2022 3:28 PM EDT): Continue Breo started in hospital 07/2019 250 once a day Continue albuterol via neb prn. flu vaccine 07/2019 s/p coronavirus vaccine 08/2020 Assessment & Plan (10/05/2022 1:04 PM EDT): Continue Breo started in hospital 07/2019 250 once a day Continue albuterol via neb prn. flu vaccine 07/2019 s/p coronavirus vaccine 08/2020 Obstructive sleep apnea 09/12/2022 Overview (10/05/2022): Diagnosed in 2007. She was not tolerant of CPAP. Assessment & Plan (11/02/2022 3:28 PM EDT): Diagnosed in 2007. She was not tolerant of CPAP. Assessment & Plan (10/05/2022 1:04 PM EDT): Diagnosed in 2007. She was not tolerant of CPAP. Insomnia 04/03/2012 Osteoarthritis of knee 04/03/2012 Overview (06/25/2023): -followed by Rheumatology -chronic opiates prescribed by PCP -has narcan at home Assessment & Plan (06/25/2023 11:22 AM EST): -followed by Rheumatology -chronic opiates prescribed by PCP -has narcan at home Assessment & Plan (11/02/2022 3:28 PM EDT): Followed by rheumatology Assessment & Plan (10/05/2022 1:04 PM EDT): Followed by rheumatology Tobacco dependence syndrome 04/03/2012 Overview (06/25/2023): -Cigg/day: 5 /day -Age started: 16 -Total years smokin -Pack year history: 41 Encouraged smoking cessation resources such as pharmacomtherapy, [facility] smoking cessation group, and [facility] pharmacy smoking cessation clinic [facility] recommends annual lung cancer screening with low dose CT in people who meet the following criteria: -ages 50 to 80 years. -have a 20 pack-year smoking history. -currently smoke cigarettes or quit within the past 15 years. -LDCT: ordered 06/25/23 Does not like Chantix, path falls off, gum bad tasting would like to try lozenge Assessment & Plan (06/25/2023 11:22 AM EST): -Cigg/day: 5 /day -Age started: 16 -Total years smokin -Pack year history: 41 Encouraged smoking cessation resources such as pharmacomtherapy, [facility] smoking cessation group, and [facility] pharmacy smoking cessation clinic [facility] recommends annual lung cancer screening with low dose CT in people who meet the following criteria: -ages 50 to 80 years. -have a 20 pack-year smoking history. -currently smoke cigarettes or quit within the past 15 years. -LDCT: ordered 06/25/23 Does not like Chantix, path falls off, gum bad tasting would like to try lozenge Assessment & Plan (11/02/2022 3:32 PM EDT): Motivational interviewing done. Encouraged patient to cease smoking, Smoking 10 cigs/day. Continue using nicotine patches and nicotine gum. Assessment & Plan (10/05/2022 1:04 PM EDT): Motivational interviewing done. Encouraged patient to cease smoking, Smoking 10 cigs/day. Continue using nicotine patches and nicotine gum. Dyslipidemia 11/24/2011 Overview (02/13/2024): Lab Results Component Value Date CHOL 190 02/12/2024 TRIG 103 02/12/2024 TRIG 140 10/31/2022 HDL 43 02/12/2024 LDLCHOLCAL 127 (H) 02/12/2024 -continue lifestyle modification Hypertension 11/24/2011 Overview (10/05/2022): -Blood pressure is at goal -Continue lifestyle modifications -Continue current medications Assessment & Plan (11/02/2022 3:28 PM EDT): -Blood pressure is at goal -Continue lifestyle modifications -Continue current medications Assessment & Plan (10/05/2022 1:45 PM EDT): -Blood pressure is at goal -Continue lifestyle modifications -Continue current medications Systemic lupus erythematosus 11/24/2011 Overview (05/21/2024): Onset 2014 (intermittent leukopenia, oral ulcers, bilateral elbow arthritis, ++ URIAH, Mott/THERAPEUTIC STRATEGY LEAD, ++ dsDNA, low C3) -methotrexate caused oral ulcers, improved on CellCept -was on Benlysta infusions at some time (patient does not recall benefits or side effects) -on hydroxychloroquine 400 mg daily regularly + prn prednisone - symptomatically, patient is doing well with no features of active SLE, however she has remained serologically active, with elevated dsDNA, mild leukopenia -followed by rheumatology. Note from Vanda Nice MD apt 12/11/23 reviewed -regular eye exams with [facility] in [place] -note from Dr. Rodriguez 04/15/24 Discussed the possibility of adding DMARDs such as Benlysta. Patient is not interested. Adjust hydroxychloroquine dose to 400 mg daily x5 days a week and 200 mg daily x2 days a week Labs before next visit in 6 -[facility]ed [facility] Ashley Chanel note from 04/20/24 reviewed Assessment & Plan (11/02/2022 3:29 PM EDT): Followed by rheumatology. Last seen in August 2018. Not on Prednisone. Adhering to Plaquenil. Has upcoming scheduled appointment. Cont. Plaquenil 200mg twice a day Cont prednisone 5mg daily. Last rheumotology visit on 09/14/20 Assessment & Plan (10/05/2022 1:05 PM EDT): Followed by rheumatology. Last seen in August 2018. Not on Prednisone. Adhering to Plaquenil. Has upcoming scheduled appointment. Cont. Plaquenil 200mg twice a day Cont prednisone 5mg daily. Last rheumotology visit on 09/14/20 Resolved Problems Problem Noted Date Diagnosed Date Resolved Date Smoker 10/02/2022 10/05/2022 Candidiasis of vagina 09/12/20222022 Acute left lower quadrant pain 09/12/2022 03/22/2023 Overview (09/12/2022): Exam concerning for diverticulitis. No evidence of acute abdomen. Will check labs. Stat CT scan for abdomen and pelvis ordered. Er precautions discussed. Assessment & Plan (11/02/2022 3:28 PM EDT): Exam concerning for diverticulitis. No evidence of acute abdomen. Will check labs. Stat CT scan for abdomen and pelvis ordered. Er precautions discussed. Assessment & Plan (09/12/2022 2:08 PM EDT): Exam concerning for diverticulitis. No evidence of acute abdomen. Will check labs. Stat CT scan for abdomen and pelvis ordered. Er precautions discussed. Asthma 08/09/2022 03/22/2023 Assessment & Plan (08/09/2022 11:58 AM EST): No indication for ABX, mild symptoms. Treat with Prednisone. ER precautions discussed. Anxiety 03/13/2013 03/22/2023 Encounters Date Type Department Care Team Description 08/28/2024 9:00 AM EDT Office Visit [facility] [address] [place] [phone] Elizabeth Ly DO Left foot pain (Primary Dx); Paresthesia of left foot 08/20/2024 Refill [facility] [address] [place] [address] Viridiana Hernández, KIMBERLY Arthritis of both knees 08/20/[address] [address] Marjan Sams MD Appointment Request 08/20/[address] [address] Marjan Sams MD Med Refill 08/19/2024 12:00 PM EDT Office Visit [address] [place] [address] AlexisElizabeth curran, 08/19/2024 Travel 08/18/[address] [address] Marjan Sams MD Call Back Request 08/01/2024 10:00 AM EST Clinical Support [address] [address] Viridiana Hernández, KIMBERLY Chronically on opiate therapy 08/01/2024 Telephone [facility] [address] [place] [address] Viridiana Hernández, KIMBERLY 08/01/2024 Refill [facility] [address] [place] [address] Viridiana Hernández, KIMBERLY 08/01/2024 Travel 07/23/2024 Refill [facility] [address] [place] [phone] Marjan Sams MD Arthritis of both knees 06/19/2024 Refill [facility] [address] [place] [phone] Marjan Sams MD Arthritis of both knees 05/30/2024 9:00 AM EST Clinical Support [address] [address] Viridiana Hernández, KIMBERLY Opioid contract exists 05/30/2024 Travel from Last 3 Months Immunizations Name Administration Dates Next Due Hep A, Adult 06/25/2023,10/05/2022 Hep B, adult 04/06/2023,11/03/2022,10/05/2022 INFLUENZA INJECTABLE QUADRIV ALANT CCIIV4 MDCK Multi-dose vial 03/10/2022 Influenza injectable quadriv alent IIV4 with preservative 02/20/2018,02/24/2015 Influenza injectable quadriv alent preservative free 04/06/2023,02/16/2021,03/11/2020,07/10,05/10/2016 Influenza, IIV3, injectable 02/12/2014,0 02/17/2011,04/20/2008,09/19 /2007 Influenza, Split (incl. hitesh fied surface antigen) 03/13/2013 Influenza, seasonal, injecta ble, preservative free 02/13/2024 Moderna Covid-19 Vaccine 6+ Bivalent 07/31/2022 Pfizer Covid-19 Vaccine 12+ 06/25/2023 Pneumococcal Conjugate PCV 20 11/03/2022 Pneumococcal Polysaccharide PPSV23 06/23/2019, Td (adult), 5 Lf tetanus tox oid, preservative free, adsorbed 12/07/2011 Tdap 02/13/2024,02/12/2014 Zoster, Recombinant 03/18/2021,01/14/2021 Family History Medical History Relation Name Comments Breast cancer Mother Relation Name Status Comments Mother Social History Tobacco Use Types Packs/Day Years Used Date Smoking Tobacco: Every Day Cigarettes Smokeless Tobacco: Never Tobacco Cessation:Ready to Q uit: Not Asked; Counseling Given: Not Answered Alcohol Use Standard Drinks/Week Comments Yes 0 [...] Orientation Straight 04/03/2022 10 :14 AM EDT Last Filed Vital Signs Vital Sign Reading [...] oz) 08/28/2024 9:09 A M EDT Height 160 cm (5' 3 ) 08/19/2024 12:35 PM EDT Body Mass Index 26.82 08/19/2024 12:35 PM EDT Plan of Treatment Upcoming Encounters Date Type Department Care Team (Late st Contact Info) Description 09/12/2024 10:30 AM EDT Clinical Support [facility] [address] [place] [phone] Viridiana Hernández RN [address] [place] [address] 10/03/2024 10:30 AM EDT Office Visit [facility] [address] [place] [phone] Marjan Sams MD [address] [place] [phone] Health Maintenance Due Date Last Done Comments CT Colonography 1966 FIT DNA/Cologuard 1966 FIT 1966 FOBT 1966 Sigmoidoscopy 1966 Alcohol/Substance Use Screening 1978 Mammogram 09/23/2024 03/25/2024, 090 02/2024, 08/27/2023, Additional history exists Depression Screening 02/12/2025 02/13/2024, 02/13/20 24 SDOH Screening 02/12/2025 02/13/2024 Tobacco Screening 08/28/2025 08/28/2024 Colonoscopy 03/30/2027 03/30/2017 Colorectal Cancer Screening 03/30/2027 Cervical Cancer Screening 11/04/2027 HPV/Cotest 11/04/2027 11/03/2022, 02/2018, 08/04/2016 Pap Smear 11/04/2027 11/03/2022, 08/10/2017 Lipid Panel 02/12/2029 02/13/2024, 02/02, 10/31/2022, Additional history exists DTaP/Tdap/Td Vaccines (3 - Td or Tdap) 02/12/2034 02/13/2024, 02/12/2014, 12/07/2011 RSV Patients and Patients Aged 60 years or older (1 - 1-dose 75+ series) 2041 Zoster Vaccines Completed 03/18/2021, 01/14/2021 Hepatitis C Screening Completed 10/31/2022 Pneumococcal Vaccine: 50+ Years Completed 11/03/2022, 06/23/2019, 01/18/2011 Hepatitis B Vaccines Completed 04/06/2023, 11/03/2022, 10/05/2022 Hepatitis A Vaccines Aged Out 06/25/2023, 10/06/19 23 No longer eligible based on patient's age to complete this topic COVID-19 Vaccine Completed 02/13/2024, , 07/31/2022, Additional history exists HIV Screening Completed 02/13/2024 Influenza Vaccine Completed 02/13/2024, , 03/10/2022, Additional history exists HIB Vaccines Aged Out No longer eligi ble based on patient's age to complete this topic HPV Vaccines Aged Out No longer eligi ble based on patient's age to complete this topic IPV Vaccines Aged Out No longer eligi ble based on patient's age to complete this topic Meningococcal Vaccine Aged Out No jerome ash eligible based on patient's age to complete this topic RSV under 20 months Aged Out No longe r eligible based on patient's age to complete this topic Rotavirus Vaccines Aged Out No longer eligible based on patient's age to complete this topic Procedures Procedure Name Priority Date/Time Associated Diagnosis Comments XR FOOT 3+ VIEWS LEFT Routine 08/28/2024 10:55 AM EDT Left foot pain POCT BLADE-14 URINE DRUG SCREEN Routine 08/01/2024 9:53 AM EST Chronically on opiate therapy POCT BLADE-14 URINE DRUG SCREEN Routine 05/30/2024 8:59 AM EST Opioid contract exists BI MAMMOGRAM DIAGNOSTIC TOMOSYNTHESIS BILATERAL Routine 03/25/2024 2:00 PM EDT HIV 1/2 ANTIGEN/ANTIBODY, FOURTH GENERATION W/RFL Routine 02/13/2024 10:36 AM EDT Routine screening for STI (sexually transmitted infection) LIPID PANEL, STANDARD Routine 02/13/2024 10:36 AM EDT Dyslipidemia THINPREP PAP, HPV MRNA E6/E7 RFX HPV 16,18/45, CHLAMYDIA/N.GONORRHOEA E Routine 11/03/2022 12:00 AM EDT HEPATITIS C AB W/REFL TO HCV RNA, QN, PCR Routine 10/31/2022 8:11 AM EDT Encounter for hepatitis C screening test for low risk patient HM COLONOSCOPY Routine 03/30/2017 12:40 PM EDT from Last 3 Months or Most Recently Relevant to Health Maintenance Results * XR Foot 3+ Views Left (08/28/2024 10:55 AM EDT) Anatomical Region Laterality Modality Lower Extremities, Foot Left Radiogra phic Imaging 08/28/2024 10:5 5 AM EDT Narrative 08/28/2024 10:56 AM EDT ?[facility] ?[address] ?[place] [address] ?XRay Report ? Signed ? Patient: Sunni,Caitlyn ?MR#: [id number] ?? [id number] ? : 1965 ?Acct:[id number] ? Age/Sex: 59 / F ?ADM Date: 08/28/24 ? Loc: HO.HHCX ? Attending Dr: Elizabeth Ly DO ? Ordering Physician: Elizabeth Ly DO ?? Date of Service: 08/28/24 ?? Procedure(s): XR foot LT min 3V ?? Accession Number(s): [id number] ? cc: Elizabeth Ly DO ? CLINICAL [...] ?08/28/24 1056 ? DD/ 1055 ? TD/TT: 08/28/245 ? Admin Dir: ? Procedure Note Jessica Eddy - 08/28/2024 [facility] [address] [place] [address] XRay Report Signed Patient: Tammy Moeller#: [id number] : 1965Acct:[id number] Age/Sex: 59 / FADM Date: 08/28/24 Loc: HO.HHCX Attending Dr: Elizabeth Ly DO Ordering Physician: Elizabeth Ly DO Date of Service: 08/28/24 Procedure(s): XR foot LT min 3V Accession Number(s): [id number] cc: Elizabeth Ly DO CLINICAL HISTORY: foot [...] 08/28/24 1056 DD/ 1055 TD/TT: 08/28/24 1055 Admin Dir: us Elizabeth Ly DO IMG XR PROCEDURES Final Resu lt * POCT BLADE-14 Urine Drug Screen (08/01/2024 9:53 AM EST) Only the most recent of2 resultswithin the time period is included. Oxycodone Screen, Urine Positive Urine Urine specimen obtained by clean catch procedure / Unknown 08/01/2024 9:53 AM EST Narrative Viridiana Hernández RN - 08/01/2024 9:53 AM EST .UTOX cup Lot#[id number] Exp. 01/21/26 Internal Pass Control us Marjan Sams MD POINT OF CARE TEST ENTER/E DIT ORDERABLES Final Result * BI Mammogram Diagnostic Tomosynthesis Bilateral (03/25/2024 2:00 PM EDT) Anatomical Region Laterality Modality Breast Bilateral Mammography 03/25/2024 2:00 PM EDT Narrative 03/25/2024 2:50 PM EDT ? [facility] ? [address] ?[place] [address] ? Mammography Report ? Signed ? Patient: Tammy Moeller ?MR#: [id number] ?? [id number] ? : 1965 ?Acct:[id number] ? Age/Sex: 58 / F ?ADM Date: 03/25/24 ? Loc: HO.MAMMO ? Attending Dr: Marjan Sams MD ? Ordering Physician: Marjan Sams MD ?Results: 2B ?? enign Findings ? Date of Service: 03/25/24 ?Follow Up: 1 Year From Orig ?? inal Mammogram ? Procedure(s): MM tomosynthesis diagnostic BI ?? Accession Number(s): [id number] ? cc: Marjan Sams MD ? EXAMINATION: ?? MM DIAGNOSTIC DIGITAL BREAST TOMOSYNTHESIS, BILATERAL ? CLINICAL INFORMATION: ? Follow-up probably benign calcifications right breast approximately ?? 12:00 axis, mid depth. This exam will establish two-year stability and ?? benignity. Patient also due for screening. ? COMPARISON: ?? Mammography: 08/27/2023, 01/17/2023, 05/09/2022, 11/07/2021, 10/21/2021 ?? (BI-RADS 0), 12/23/2019, and dating back to 2017. ? TECHNIQUE: ?? Digital breast tomosynthesis is performed in both the craniocaudal and ?? mediolateral oblique views along with computer-aided detection (CAD). ?? Synthesized 2D images are generated from the tomosynthesis. In addition ?? to standard views, 2-D spot magnification right CC and ML views were ?? obtained. ? FINDINGS: ?? There are scattered areas of fibroglandular density (ACR BI-RADS breast ?? composition Category b). ? -Calcifications in the 12:00 axis of the right breast, middle one ?? third, have not appreciably changed in number, morphology, or ?? distribution since 10/21/2021. These remain stable over 2 years, and ?? are benign. No further follow-up recommended. ? -Stable circumscribed nodule right breast 9:00 axis, anterior, benign. ?? There is no developing suspicious mass, developing suspicious ?? calcifications, or region of architectural distortion. There is no ?? suspicious skin or axillary abnormality. There are probable ?? precipitated aluminum salts from deodorant in the sebaceous glands of ?? both axillary regions. ? MM/MM tomosynthesis diagnostic BI ?? IMPRESSION: ?? -There are no findings suspicious for malignancy in either breast. ?? There are stable benign findings. ? -Calcifications in the 12:00 anterior right breast are unchanged over 2 ?? years and hence benign. No further follow-up recommended. ? -Recommend the patient resume routine annual screening. ? ASSESSMENT: ? BI-RADS BI-RADS 2 - Benign Findings ? RECOMMENDATION: ?? 1 year F/U ? Results were provided to the patient at time of visit by the ?? technologist. ? This patient's information was entered into a reminder system with a ?? target due date for their next mammogram. ? Electronically signed by: ??Amor Jimenez MD ??03/25/2024 02:47 PM EDT RP ? Dictated By: ?Amor Jimenez MD ? Signed By: ?<Electronically signed by Amor Jimenez MD in OV> ?03/25/24 1447 ? DD/ 1400 ? TD/TT: 03/25/24 1422 ? Admin Dir: ? Procedure Note Donotuseinterpreter, Image - 03/25/2024 [facility] [address] [place] [address] Mammography Report Signed Patient: Tammy Moeller#: [id number] : 1965Acct:[id number] Age/Sex: 58 / FADM Date: 03/25/24 Loc: HO.MAMMO Attending Dr: Marjan Sams MD Ordering Physician: Marjan Sams MDResults: 2B enign Findings Date of Service: 03/25/24Follow Up: 1 Year From Orig inal Mammogram Procedure(s): MM tomosynthesis diagnostic BI Accession Number(s): [id number] cc: Marjan Sams MD EXAMINATION: MM DIAGNOSTIC DIGITAL BREAST TOMOSYNTHESIS, BILATERAL CLINICAL INFORMATION: Follow-up probably benign calcifications right breast approximately 12:00 axis, mid depth. This exam will establish two-year stability and benignity. Patient also due for screening. COMPARISON: Mammography: 08/27/2023, 01/17/2023, 05/09/2022, 11/07/2021, 10/21/2021 (BI-RADS 0), 12/23/2019, and dating back to 2017. TECHNIQUE: Digital breast tomosynthesis is performed in both the craniocaudal and mediolateral oblique views along with computer-aided detection (CAD). Synthesized 2D images are generated from the tomosynthesis. In addition to standard views, 2-D spot magnification right CC and ML views were obtained. FINDINGS: There are scattered areas of fibroglandular density (ACR BI-RADS breast composition Category b). -Calcifications in the 12:00 axis of the right breast, middle one third, have not appreciably changed in number, morphology, or distribution since 10/21/2021. These remain stable over 2 years, and are benign. No further follow-up recommended. -Stable circumscribed nodule right breast 9:00 axis, anterior, benign. There is no developing suspicious mass, developing suspicious calcifications, or region of architectural distortion. There is no suspicious skin or axillary abnormality. There are probable precipitated aluminum salts from deodorant in the sebaceous glands of both axillary regions. MM/MM tomosynthesis diagnostic BI IMPRESSION: -There are no findings suspicious for malignancy in either breast. There are stable benign findings. -Calcifications in the 12:00 anterior right breast are unchanged over 2 years and hence benign. No further follow-up recommended. -Recommend the patient resume routine annual screening. ASSESSMENT: BI-RADS BI-RADS 2 - Benign Findings RECOMMENDATION: 1 year F/U Results were provided to the patient at time of visit by the technologist. This patient's information was entered into a reminder system with a target due date for their next mammogram. Electronically signed by: Amor Jimenez MD 03/25/2024 02:47 PM EDT Workstation: [employer] Dictated By: Amor Jimenez MD Signed By: <Electronically signed by Amor Jimenez MD in OV> 03/25/24 1447 DD/ 1400 TD/TT: 03/25/24 1422 Admin Dir: Marjan Sams MD [facility] BI PROCEDURES Final Re sult * HIV-1/2 Antigen and Antibodies, Fourth Generation, with Reflexes (02/13/2024 10:36 AM EDT) HIV AB/AG Nonreactive Nonreactive [facility] Comment:HIV-1 p24 Ag and/or HIV-1/HIV-2 Ab not detected.A test result that is nonreactive does not exclude thepossibility of exposure to or infection with HIV-1 and/orHIV-2. Nonreactive results in this assay for individualswith prior exposure to HIV-1 and/or HIV-2 may be due toantigen and antibody levels that are below the limit ofdetection of this assay.The [employer] HIV Ag/Ab Combo assay result andsupplemental assay results should be interpreted inconjunction with the patient's clinical presentation,history and other laboratory results. If the results areinconsistent with clinical evidence, additional testing issuggested to confirm the result. Blood Venous blood specimen / Unknown 02/13/2024 10:36 AM EDT 02/13/2024 11:19 AM EDT Marjan Sams MD LAB BLOOD ORDERABLES Final Result [facility] [address] [place] [phone] * (ABNORMAL) Lipid Panel, Standard (02/13/2024 10:36 AM EDT) Triglycerides 115 <150 mg/dL [facility] Comment:Desirable Triglyceri de: less than 150 mg/dLBorderline High Triglyceride 150-199 mg/dLHigh Triglyceride: 200-499 mg/dLVery High Triglyceride: greater than or equal to 5OO mg/dL Cholesterol 178 <200 mg/dL [facility] Comment:Desirable Cholestero l: less than 200 mg/dLBorderline High Cholesterol: 200-239 mg/dLHigh Cholesterol: greater than 239 mg/dL LDL Cholesterol Calculated 114(H) <100 mg/dL [facility] Comment:Desirable LDL: less than 100 mg/dLNear Optimal/Above Optimal LDL: 110- 129 mg/dLBorderline High LDL: 130-159 mg/dLHigh LDL: 160-189 mg/dLVery High LDL: greater than or equal to 190 mg/dL HDL Cholesterol 41 >40 mg/dL [facility] Comment:Desirable HDL: great er than 40 mg/dL Note: This HDL assay may give artificially low results in patients with liver disease. Blood Venous blood specimen / Unknown 02/13/2024 10:36 AM EDT 02/13/2024 11:19 AM EDT Marjan Sams MD LAB BLOOD ORDERABLES Final Result [facility] [address] [place] [phone] [phone] * Thinprep PAP, HPV mRNA E6/E7 RFX HPV 16,18/45, Chlamydia/N. Gonorrhoeae (11/03/2022 12:00 AM EDT) Clinical Information: ROUTINE EXFO LMP: NONE GIVEN [facility] [place] Prev. PAP: NONE GIVEN [facility] [place] Prev. BX: NO [facility] [place] SOURCE: None given [facility] [place] Statement Of Adequacy: SATISFACTORY FOR EVALUATION EXFO Interpretation/Re sult: EXFO Comment: Negative for intraepithelial lesion or malignancy. Atrophic pattern; predominantly parabasal cells Paid Search Marketing Strategist: [employer] Comment: WXW, CT(ASCP) CT Screening Location: [place] [address] (Always Message) [facility] Comment: EXPLANATORY NOTE: The Pap is a screening test for cervical cancer. It is not a diagnostic test and is subject to false negative and false positive results. It is most reliable when a satisfactory sample, regularly obtained, is submitted with relevant clinical findings and history, and when the Pap result is evaluated along with historic and current clinical information. HPV nRNA E6/E7 Not Detected Not Detected EXFO Comment: Methodology: [employer]-Mediated Amplification This assay detects E6/E7 viral messenger RNA (mRNA) from 14 high-risk HPV types (16,18,31,33,35,39,45,51,52,56,58,59,66,68). Cervical sources are required for HPV testing. If a vaginal source from a patient who has had a total hysterectomy with removal of cervix was submitted, please contact the testing laboratory for alternative testing options. For additional information, please refer to http://education.Entrenarme/faq/XJY700t7 (This link if provided for information/ educational purposes only.) Chlamydia trachomatis RNA, TMA, Urogenital NOT DETECTED NOT DETECTED [facility] Neisseria gonorrhoeae RNA, TMA, Urogenital NOT DETECTED NOT DETECTED [facility] [place] [employer] (Always Message) [facility] Comment: The analytical performance characteristics of this assay, when used to test SurePath(TM) specimens have been determined by [facility] [place]. The modifications have not been cleared or approved by the FDA. This assay has been validated pursuant to the CLIA regulations and is used for clinical purposes. For additional information, please refer to https://FRUCT.Entrenarme/faq/IJK567 (This link is being provided for information/ educational purposes only.) 11/03/2022 11/06/2022 9:1 5 PM EDT Narrative [employer] [facility] - 11/09/2022 10:33 AM EDT FASTING: UNKNOWN Marjan Sams MD LAB PATHOLOGY ORDERABLES F inal Result [facility] [address], [place] [address] [facility] [place] [facility] [address] [place] [address] * Hepatitis C Antibody with Reflex to HCV, RNA, Quantitative, Real-Time PCR (10/31/2022 8:11 AM EDT) Hepatitis C Antibody NON-REACT CHOCO NON-REACT CHOCO [facility] [place] [facility] Index 0.43 <1.00 [facility] [place] [facility] Comment: HCV antibody was non-reactive. There is no laboratory evidence of HCV infection. In most cases, no further action is required. However, if recent HCV exposure is suspected, a test for HCV RNA (test code 76275) is suggested. For additional information please refer to http://FRUCT.Entrenarme/faq/IIZ62n1 (This link is being provided for informational/ educational purposes only.) Blood Venous blood specimen / Unknown 10/31/2022 8:11 AM EDT 10/31/2022 8:11 AM EDT Narrative [facility] - 10/31/2022 9:53 PM EDT FASTING:YES FASTING: YES Marjan Sams MD LAB BLOOD ORDERABLES Final Result [facility] [address], [place] [address] [facility] [place] [facility] [address] [place] [address] * Hm Colonoscopy (03/30/2017 12:40 PM EDT) Historical Provider HEALTH MAINTENANCE Final Result from Last 3 Months or Most Recently Relevant to Health Maintenance Insurance [employer] MEDICARE REPLACEMENT Care Teams Scientific Technical Writer Relationship Specialty Start Date End Date [place], MD Marjan [address] [place] [address] PCP - General Family Medicine 06/04/18 Esteban Nice MD [address] [place] [address] Rheumatology 05/21/24 Ashley Chanel OD [address] [place] [address] Optometry 05/21/24
--- OUTSIDE RECORDS SUMMARY | 2024-08-28 11:30 | XMS_ITS | Encounter Summary ---
Author Organization [employer] Address [address] [facility] 7t [place] [address] Care Team Providers Care Postal Mail Carrier Name Role Phone Marjan Sams MD Primary Care Provider [phone]- [phone] Esteban Nice MD Unavailable Ashley Chanel OD Unavailable Reason for Visit * Reason Onset Date Comments Uber Set-up 01/23/2024 Encounter Details Date Type Department Care Team (Late st Contact Info) Description 01/23/2024 Telephone [facility] [address] [place] [address] Marjan Sams MD [address] [place] [address] Uber Set-up Social History Tobacco Use Types Packs/Day Years [...] * Telephone Encounter - Kadeem Martinez - 01/23/2024 10:00 AM EDT Tc from patient calling to request a uber set-up for 01/29 appt conventional mortgage underwriter did confirm address and call back number documented in this encounter Plan of Treatment Upcoming Encounters Date Type Department Care Team (Late st Contact Info) Description 09/12/2024 10:30 AM EDT Clinical Support [facility] [address] [place] [address] Viridiana Hernández RN [address] [place] [address] 10/03/2024 10:30 AM EDT Office Visit [facility] [address] [place] [address] Marjan Sams MD [address] [place] [address] documented as of this encounter Visit Diagnoses Not on filedocumented in this encounter Additional Health Concerns Assessment Noted Time PHQ-9 Depression Total Score: 0 11/04/19 10:28 AM EDT documented as of this encounter Care Teams Postal Mail Carrier Relationship Specialty Start Date End Date Marjan Sams MD [address] [place] [address] PCP - General Family Medicine 06/04/18 Esteban Nice MD [address] [place] [address] [address] [place] [address] Rheumatology 05/21/24 Ashley Chanel OD [address] [place] [address] Optometry 05/21/24 documented as of this encounter
--- OUTSIDE RECORDS SUMMARY | 2024-08-28 11:30 | XMS_ITS | Encounter Summary ---
Author Organization [employer] Address [address] [facility] 7t [place] [address] Care Team Providers Care Carpenter Assistant Installer Name Role Phone Marjan Sams MD Primary Care Provider [phone]- [phone] Esteban Nice MD Unavailable Ashley Chanel OD Unavailable [phone] Reason for Visit * Reason Onset Date Comments Med Refill 01/21/2024 Encounter Details Date Type Department Care Team (Late st Contact Info) Description 01/21/2024 Telephone [facility] [address] [place] [address] Marjan Sams MD [address] [place] [address] Med Refill Social History Tobacco Use Types [...] Miscellaneous Notes * Telephone Encounter - Ranjan Jung - 01/21/2024 9:15 AM EDT TC from pt requesting medication refill. Medications needing refill : oxyCODONE-acetaminophen (Percocet) 5-325 MG tablet To be sent to: [facility] documented in this encounter Plan of Treatment Upcoming Encounters Date Type Department Care Team (Late st Contact Info) Description 09/12/2024 10:30 AM EDT Clinical Support [facility] [address] [place] [address] Viridiana Hernández RN [address] [place] [address] 10/03/2024 10:30 AM EDT Office Visit [facility] [address] [place] [address] Marjan Sams MD [address] [place] [address] documented as of this encounter Visit Diagnoses Not on filedocumented in this encounter Additional Health Concerns Assessment Noted Time PHQ-9 Depression Total Score: 0 11/04/19 23 10:28 AM EDT documented as of this encounter Care Teams Carpenter Assistant Installer Relationship Specialty Start Date End Date [place], MD Marjan [address] [place] [address] PCP - General Family Medicine 06/04/18 Esteban Nice MD [address] [place] [address] [address] [place] [address] Rheumatology 05/21/24 Ashley Chanel OD [address] [place] [address] Optometry 05/21/24 documented as of this encounter
== END 2024-08-28 09:34 | disposition home or self-care (01) ==
LOC: HO.HHCX 09:33
PROVIDERS: Visit Provider Family Medicine
DX: M79.672 Pain in left foot (principal)
CPT/HCPCS: 73630

== ENCOUNTER → 2024-08-28 09:33 | Outpatient (BNV) | payer MEDICARE, SELFPAY | PROVIDERS: Visit Provider Radiology Diagnostic Radiology | DX: M79.672 Pain in left foot (principal) | CPT/HCPCS: 73630 ==

== ENCOUNTER 2024-09-16 10:03 | Outpatient (REF) | payer MEDICARE, SELFPAY ==
--- NOTE | ~2024-09-16 | MR_ITS ---
EXAMINATION: MR ANKLE WITHOUT CONTRAST, LEFT CLINICAL INFORMATION: Intramedullary infarct distal tibia is suspected on x-rays. Further evaluation. COMPARISON: No prior MRI. Left foot radiographs 08/28/2024. TECHNIQUE: MRI of the left ankle was performed using standard sequences without contrast on a Siemens 1.5 Martha high-field scanner. FINDINGS: Marrow: There is a large intramedullary irregular region of nonenhancing T1 hypointense, T2 mixed intensity, measuring approximately 2.5 cm in AP, by 2.9 cm in transverse, by 6.7 cm craniocaudad dimension. This has signal characteristics and appearance fairly characteristic for intramedullary bone infarct. This does extend to the articular tibial plafond, involving a region of the mid subarticular plafond measuring approximately 1.4 x 2.9 cm. No subarticular collapse. In addition, there is a focus of AVN involving the talar dome medial aspect, with subarticular focus measuring 1.0 x 0.7 cm (series 7, image 12; series 6, image 18). There is no subarticular collapse. There are also small bone infarcts present within the navicular, middle cuneiform, posterior facet of the middle subtalar joint, and anterior process of the calcaneus. TENDONS: Flexor tendons: Intact. There is mild tenosynovitis of the posterior tibialis tendon. Extensor tendons: Intact and normal in signal. Peroneus tendons: There is a peroneus brevis split tear just proximal to the lateral malleolus. Achilles: Intact and normal in signal. Trace fluid in the retrocalcaneal bursa. Plantar fascia: Intact and normal in signal. LIGAMENTS: Syndesmosis: Syndesmotic ligaments are intact and normal in signal. Lateral ligaments: The anterior talofibular, posterior talofibular, and calcaneofibular ligaments are intact LisFranc: Incompletely imaged. Cervical: Intact and normal in signal. Deltoid: Deltoid superficial and deep bands are intact and normal in signal. Spring: Spring ligament is intact and normal in signal. Normal plantar arch. JOINTS: Tibiotalar: Normal. Small joint effusion. Subtalar: Normal. Calcaneonavicular: Normal. Other: No other findings. No evidence of a coalition. Cartilage: There are no full-thickness cartilaginous defects identified. Alignment: Normal ankle alignment. There is a mild pes planus deformity of the foot. Muscle/soft tissues: Normal. MR/MR ankle LT wo/w con IMPRESSION: 1. 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 2. 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 3. There are also tiny bone infarctions within the central navicular, middle cuneiform, posterior facet of the middle subtalar joint, and anterior process of the calcaneus. There are no suspicious enhancing bone lesions. 4. Mild pes planus. 5. Peroneus brevis tendon split tear. 6. Mild tenosynovitis of the posterior tibialis tendon. 7. There is a small tibiotalar joint effusion. Electronically signed by: Amor Jimenez MD 09/16/2024 12:37 PM EDT
--- NOTE | 2024-09-16 10:00 | EMG_ITS ---
Left tibial and peroneal motor studies were performed. Left superficial peroneal, sural, and median and lateral mixed plantar sensory studies were performed. Tibial H-reflex was obtained, and paraspinal muscles were tested with a needle. IMPRESSION: Mild sensory motor axonal peripheral neuropathy. MD GARY Huntley/BRENDANL / [id number]
[2024-09-16] MEDS: gadobutroL 7.5 ML VIAL IVPUSH (11:43)
== END 2024-09-16 10:04 | disposition home or self-care (01) ==
LOC: HO.NEURO 10:03
PROVIDERS: PCP Family Medicine; Visit Provider Family Medicine
DX: G62.89 Other specified polyneuropathies (principal)
CPT/HCPCS: 73723; 95860; 95886; 95910

== ENCOUNTER → 2024-09-16 10:46 | Outpatient (BNV) | payer MEDICARE, SELFPAY | PROVIDERS: PCP Family Medicine; Visit Provider Radiology Diagnostic Radiology | DX: M79.672 Pain in left foot (principal) | CPT/HCPCS: 73723 ==

== ENCOUNTER 2024-09-18 08:51 | Outpatient (REF) | payer MEDICARE, SELFPAY ==
--- OUTSIDE RECORDS SUMMARY | 2024-09-18 09:34 | XMS_ITS | Encounter Summary ---
Author Organization [email or web address] Address [address] [facility] 7t [place] [address] Care Team Providers Care Motorman/Woman Name Role Phone Marjan Sams MD Primary Care Provider [phone]- [phone] Esteban Nice MD Unavailable Ashley Chanel OD Unavailable [phone] Reason for Visit * Reason Comments Med Refill Encounter Details Date Type Department Care Team (Late st Contact Info) Description 07/25/2023 Refill [facility] [address] [place] [address] Marjan Sams MD [address] [place] [address] Arthritis of both knees Social History Tobacco [...] Orientation Straight 04/03/2022 10 :14 AM EDT Travel History Travel Start Travel End [facility] 09/04/2024 09/10/2024 documented as of this encounter Plan of Treatment Upcoming Encounters Date Type Department Care Team (Late st Contact Info) Description 10/03/2024 10:30 AM EDT Office Visit [facility] [address] [place] [address] Marjan Sams MD [address] [place] [address] 11/14/2024 9:30 AM EDT Clinical Support [address] [address] Viridiana Hernández RN [address] [place] [address] documented as of this encounter Visit Diagnoses Diagnosis Arthritis of both knees documented in this encounter Additional Health Concerns Assessment Noted Time PHQ-9 Depression Total Score: 0 11/04/19 23 10:28 AM EDT documented as of this encounter Care Teams Motorman/Woman Relationship Specialty Start Date End Date Marjan Sams MD [address] [place] [address] PCP - General Family Medicine 06/04/18 Esteban Nice MD [address] [place] [address] Rheumatology 05/21/24 Ashley Chanel OD [address] [place] [address] Optometry 05/21/24 documented as of this encounter
--- OUTSIDE RECORDS SUMMARY | 2024-09-18 09:34 | XMS_ITS | Encounter Summary ---
Author Organization [employer] Address [address] [facility] 7t [place] [address] Care Team Providers Care Assembling Motor Builder Name Role Phone Marjan Sams MD Primary Care Provider [phone]- [phone] Esteban Nice MD Unavailable Ashley Chanel OD Unavailable [phone] Reason for Visit * Reason Onset Date Comments Med Refill 01/21/2024 Encounter Details Date Type Department Care Team (Late st Contact Info) Description 01/21/2024 Telephone [facility] [address] [place] [address] Marjan Sams MD [address] [place] [address] Med Refill Social History Tobacco Use Types [...] EDT Travel History Travel Start Travel End [facility] 09/04/2024 09/10/2024 documented as of this encounter Miscellaneous Notes * Telephone Encounter - Ranjan Jung - 01/21/2024 9:15 AM EDT TC from pt requesting medication refill. Medications needing refill : oxyCODONE-acetaminophen (Percocet) 5-325 MG tablet To be sent to: [facility] documented in this encounter Plan of Treatment Upcoming Encounters Date Type Department Care Team (Late st Contact Info) Description 10/03/2024 10:30 AM EDT Office Visit [facility] [address] [place] [address] Marjan Sams MD [address] [place] [address] 11/14/2024 9:30 AM EDT Clinical Support [facility] [address] [place] [address] Viridiana Hernández RN [address] [place] [address] documented as of this encounter Visit Diagnoses Not on filedocumented in this encounter Additional Health Concerns Assessment Noted Time PHQ-9 Depression Total Score: 0 11/04/19 23 10:28 AM EDT documented as of this encounter Care Teams Assembling Motor Builder Relationship Specialty Start Date End Date Marjan Sams MD [address] [place] [address] PCP - General Family Medicine 06/04/18 Esteban Nice MD [address] [place] [address] Rheumatology 05/21/24 Ashley Chanel OD [address] [place] [address] Optometry 05/21/24 documented as of this encounter
--- OUTSIDE RECORDS SUMMARY | 2024-09-18 09:34 | XMS_ITS | Encounter Summary ---
Author Organization [employer] Address [address] [facility] 7t [place] [address] Care Team Providers Care Filament Tester Name Role Phone Marjan Sams MD Primary Care Provider [phone] Esteban Nice MD Unavailable Ashley Chanel OD Unavailable [phone] Reason for Visit * Reason Onset Date Comments Med Refill 02/19/2023 Encounter Details Date Type Department Care Team (Late st Contact Info) Description 02/19/2023 Telephone [facility] [address] [place] [address] Marjan Sams MD [address] [place] [address] Med Refill Social History Tobacco Use Types [...] EDT Travel History Travel Start Travel End [employer] 09/04/2024 09/10/2024 documented as of this encounter Miscellaneous Notes * Telephone Encounter - Carla Schneider - 02/19/2023 9:08 AM EDT Tc from patient requesting a med refill for medication oxycodone [address] Sams documented in this encounter Plan of Treatment Upcoming Encounters Date Type Department Care Team (Late st Contact Info) Description 10/03/2024 10:30 AM EDT Office Visit [address] [address] Marjan Sams MD [address] [place] [address] 11/14/2024 9:30 AM EDT Clinical Support [address] [address] Viridiana Hernández RN [address] [place], [place] [phone] documented as of this encounter Visit Diagnoses Not on filedocumented in this encounter Additional Health Concerns Assessment Noted Time PHQ-9 Depression Total Score: 0 11/04/19 23 10:28 AM EDT documented as of this encounter Care Teams Filament Tester Relationship Specialty Start Date End Date Marjan Sams MD [address] [place] [address] PCP - General Family Medicine 06/04/18 Esteban Nice MD [address] [place] [address] Rheumatology 05/21/24 Ashley Chanel OD [address] [place] [address] Optometry 05/21/24 documented as of this encounter
--- OUTSIDE RECORDS SUMMARY | 2024-09-18 09:34 | XMS_ITS | Encounter Summary ---
Author Organization [employer] Address 75 [facility] 7t [place] [address] Care Team Providers Care Recreational Facilities Motel Manager Name Role Phone Marjan Sams MD Primary Care Provider [phone]- [phone] Esteban Nice MD Unavailable Ashley Chanel OD Unavailable [phone] Reason for Visit * Reason Comments Med Refill Encounter Details Date Type Department Care Team (Late st Contact Info) Description 10/19/2023 Refill [facility] [address] [place] [address] Lluvia Mendoza MD [address] [place] [address] History of DVT (deep vein thrombosis) Social [...] EDT Travel History Travel Start Travel End [facility] 09/04/2024 09/10/2024 documented as of this encounter Plan of Treatment Upcoming Encounters Date Type Department Care Team (Late st Contact Info) Description 10/03/2024 10:30 AM EDT Office Visit [facility] [address] [place] [address] Marjan Sams MD [address] [place] [address] 11/14/2024 9:30 AM EDT Clinical Support [address] [address] Viridiana Hernández RN [address] [place] [address] documented as of this encounter Visit Diagnoses Diagnosis History of DVT (deep vein thrombosis) documented in this encounter Additional Health Concerns Assessment Noted Time PHQ-9 Depression Total Score: 0 11/04/19 23 10:28 AM EDT documented as of this encounter Care Teams Recreational Facilities Motel Manager Relationship Specialty Start Date End Date Marjan Sams MD [address] [place] [address] PCP - General Family Medicine 06/04/18 Esteban Nice MD [address] [place] [address] Rheumatology 05/21/24 Ashley Chanel OD [address] [place] [address] Optometry 05/21/24 documented as of this encounter
--- OUTSIDE RECORDS SUMMARY | 2024-09-18 09:34 | XMS_ITS | Encounter Summary ---
Author Organization [employer] Address [address] [place] [address] 7[address] [place] [address] Care Team Providers Care Wire Wrapper Machine Operator Name Role Phone Marjan Sams MD Primary Care Provider [phone]- [phone] Esteban iNce MD Unavailable Ashley Chanel OD Unavailable [phone] Reason for Referral * Consultation (STAT) - Authorized Specialty Diagnoses / Procedures Referred By Kristine garcia Referred To Contact Orthopaedic Surgery Diagnoses Closed fracture of left foot, initial encounter Elizabeth Ly DO [address] [place], [place] Phone: tel: fax: [facility] [address] [place] [address] Drive [address] [place], [place] Phone: tel: fax: Referral ID Status Reason Start Date Expiration Date Visits Requested Visits Authorized [id number] Authorized Specialty Services Required 09/03/2024 09/03/2025 1 1 * Imaging (Urgent) - Closed Specialty Diagnoses / Procedures Referred By Kristine garcia Referred To Contact Radiology Diagnoses Abnormal plain x-ray of foot Procedures MR Ankle w/ and w/o Contrast Left Elizabeth Ly DO [address] [place] [address] Phone: tel: fax: [address] Phone: tel: fax: Referral ID Status Reason Start Date Expiration Date Visits Re quested Visits Authorized [id number] Closed 09/03/2024 09/03/2025 1 1 Encounter Details Date Type Department Care Team (Late st Contact Info) Description 09/03/2024 Orders Only [facility] [address] [place] [address] Elizabeth Ly DO [address] [place] [address] Closed fracture of left foot, initial encounter (Primary Dx); Abnormal plain x-ray of foot; Chronic pain of left ankle Social History Tobacco Use Types Packs/Day Years [...] EDT Travel History Travel Start Travel End [facility] 09/04/2024 09/10/2024 documented as of this encounter Progress Notes * Elizabeth Ly DO - 09/03/2024 9:04 AM EDT Ortho and MRI ankle orders placed. documented in this encounter Plan of Treatment Upcoming Encounters Date Type Department Care Team (Late st Contact Info) Description 10/03/2024 10:30 AM EDT Office Visit [facility] [address] [place] [address] Marjan Sams MD [address] [place] [address] 11/14/2024 9:30 AM EDT Clinical Support [address] [address] Viridiana Hernández, KIMBERLY [address] [place] [address] Scheduled Referrals Name Type Priority Associated Diagnoses Order Schedule Referral to Orthopaedic Surgery Outpatient Referral STAT Closed fracture of left foot, initial encounter Expected: 09/03/2024 (Approximate), Expires: 09/03/2025 documented as of this encounter Procedures Procedure Name Priority Date/Time Associated Diagnosis Comments MR ANKLE W AND WO CONTRAST LEFT Urgent 09/16/2024 10:46 AM EDT Abnormal plain x-ray of foot documented in this encounter Results * MR Ankle w/ and w/o Contrast Left (09/16/2024 10:46 AM EDT) Anatomical Region Laterality Modality Lower Extremities, Ankle Left Magneti c Resonance 09/16/2024 10:4 6 AM EDT Narrative 09/16/2024 12:40 PM EDT ? [facility] ?[address] ?[place] [address] ? Magnetic Resonance Report ? Signed ? Patient: Sunni,Caitlyn ?MR#: [id number] ?? [id number] ? : 1965 ?Acct:[id number] ? Age/Sex: 59 / F ?ADM Date: 09/16/24 ? Loc: HO.NEURO ? Attending Dr: Elizabeth Ly DO ? Ordering Physician: Elizabeth Ly DO ?? Date of Service: 09/16/24 ?? Procedure(s): MR ankle LT wo/w con ?? Accession Number(s): [id number] ? cc: Marjan Sams MD; Elizabeth Ly DO ? EXAMINATION: ?? MR ANKLE WITHOUT CONTRAST, LEFT ? CLINICAL INFORMATION: ?? 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 Further ?? evaluation. ? COMPARISON: ?? No prior MRI. ?? Left foot radiographs 08/28/2024. ? TECHNIQUE: ?? MRI of the left ankle was performed using standard sequences without ?? contrast on a Siemens 1.5 Martha high-field scanner. ? FINDINGS: ?? Marrow: ?? There is a large intramedullary irregular region of nonenhancing T1 ?? hypointense, T2 mixed intensity, measuring approximately 2.5 cm in AP, ?? by 2.9 cm in transverse, by 6.7 cm craniocaudad dimension. This has ?? 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 This does extend to the articular tibial ?? plafond, involving a region of the mid subarticular plafond measuring ?? approximately 1.4 x 2.9 cm. No subarticular collapse. ? In addition, there is a focus of AVN involving the talar dome medial ?? aspect, with subarticular focus measuring 1.0 x 0.7 cm (series 7, image ?? 12; series 6, image 18). There is no subarticular collapse. ? There are also small bone infarcts present within the navicular, middle ?? cuneiform, posterior facet of the middle subtalar joint, and anterior ?? process of the calcaneus. ? TENDONS: ?? Flexor tendons: Intact. There is mild tenosynovitis of the posterior ?? tibialis tendon. ?? Extensor tendons: Intact and normal in signal. ?? Peroneus tendons: There is a peroneus brevis split tear just proximal ?? to the lateral malleolus. ?? Achilles: Intact and normal in signal. Trace fluid in the ?? retrocalcaneal bursa. ?? Plantar fascia: Intact and normal in signal. ? LIGAMENTS: ?? Syndesmosis: Syndesmotic ligaments are intact and normal in signal. ?? Lateral ligaments: The anterior talofibular, posterior talofibular, and ?? calcaneofibular ligaments are intact ?? LisFranc: Incompletely imaged. ?? Cervical: Intact and normal in signal. ?? Deltoid: Deltoid superficial and deep bands are intact and normal in ?? signal. ?? Spring: Spring ligament is intact and normal in signal. Normal plantar ?? arch. ? JOINTS: ?? Tibiotalar: Normal. Small joint effusion. ?? Subtalar: Normal. ?? Calcaneonavicular: Normal. ? Other: No other findings. No evidence of a coalition. ? Cartilage: There are no full-thickness cartilaginous defects identified. ? Alignment: Normal ankle alignment. There is a mild pes planus deformity ?? of the foot. ? Muscle/soft tissues: Normal. ? MR/MR ankle LT wo/w con ?? IMPRESSION: ?? 1. 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 ?? 2. 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 articular focus measuring 10 x 7 mm, without subarticular collapse. ?? 3. There are also tiny bone infarctions within the central navicular, ?? middle cuneiform, posterior facet of the middle subtalar joint, and ?? anterior process of the calcaneus. There are no suspicious enhancing ?? bone lesions. ?? 4. Mild pes planus. ?? 5. Peroneus brevis tendon split tear. ?? 6. Mild tenosynovitis of the posterior tibialis tendon. ?? 7. There is a small tibiotalar joint effusion. ? Electronically signed by: ??Amor Jimenez MD ??09/16/2024 12:37 PM EDT RP ? Dictated By: ?Amor Jimenez MD ? Signed By: ?<Electronically signed by Amor Jimenez MD in OV> ?09/16/24 1237 ? DD/ 1046 ? TD/TT: 09/16/24 1145 ? [address]: ? 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 Further evaluation. COMPARISON: No prior MRI. Left foot radiographs 08/28/2024. TECHNIQUE: MRI of the left ankle was performed using standard sequences without contrast on a Siemens 1.5 Martha high-field scanner. FINDINGS: Marrow: There is a large intramedullary irregular region of nonenhancing T1 hypointense, T2 mixed intensity, measuring approximately 2.5 cm in AP, by 2.9 cm in transverse, by 6.7 cm craniocaudad dimension. This has signal characteristics and appearance fairly characteristic for intramedullary bone infarct. This does extend to the articular tibial plafond, involving a region of the mid subarticular plafond measuring approximately 1.4 x 2.9 cm. No subarticular collapse. In addition, there is a focus of AVN involving the talar dome medial aspect, with subarticular focus measuring 1.0 x 0.7 cm (series 7, image 12; series 6, image 18). There is no subarticular collapse. There are also small bone infarcts present within the navicular, middle cuneiform, posterior facet of the middle subtalar joint, and anterior process of the calcaneus. TENDONS: Flexor tendons: Intact. There is mild tenosynovitis of the posterior tibialis tendon. Extensor tendons: Intact and normal in signal. Peroneus tendons: There is a peroneus brevis split tear just proximal to the lateral malleolus. Achilles: Intact and normal in signal. Trace fluid in the retrocalcaneal bursa. Plantar fascia: Intact and normal in signal. LIGAMENTS: Syndesmosis: Syndesmotic ligaments are intact and normal in signal. Lateral ligaments: The anterior talofibular, posterior talofibular, and calcaneofibular ligaments are intact LisFranc: Incompletely imaged. Cervical: Intact and normal in signal. Deltoid: Deltoid superficial and deep bands are intact and normal in signal. Spring: Spring ligament is intact and normal in signal. Normal plantar arch. JOINTS: Tibiotalar: Normal. Small joint effusion. Subtalar: Normal. Calcaneonavicular: Normal. Other: No other findings. No evidence of a coalition. Cartilage: There are no full-thickness cartilaginous defects identified. Alignment: Normal ankle alignment. There is a mild pes planus deformity of the foot. Muscle/soft tissues: Normal. MR/MR ankle LT wo/w con IMPRESSION: 1. 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 2. 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 3. There are also tiny bone infarctions within the central navicular, middle cuneiform, posterior facet of the middle subtalar joint, and anterior process of the calcaneus. There are no suspicious enhancing bone lesions. 4. Mild pes planus. 5. Peroneus brevis tendon split tear. 6. Mild tenosynovitis of the posterior tibialis tendon. 7. There is a small tibiotalar joint effusion. Electronically signed by: Amor Jimenez MD 09/16/2024 12:37 PM EDT Dictated By: Amor Jimenez MD Signed By: <Electronically signed by Amor Jimenez MD in OV> 09/16/24 1237 DD/ 1046 TD/TT: 09/16/[address]: us Elizabeth Ly DO IMG MRI PROCEDURES Final Res ult documented in this encounter Visit Diagnoses Diagnosis Closed fracture of left foot, initial encounter- Primary Abnormal plain x-ray of foot Chronic pain of left ankle documented in this encounter Additional Health Concerns Assessment Noted Time PHQ-9 Depression Total Score: 4 02/13/20 24 9:45 AM EDT documented as of this encounter Care Teams Wire Wrapper Machine Operator Relationship Specialty Start Date End Date Marjan Sams MD [address] [place] [address] PCP - General Family Medicine 06/04/18 Esteban Nice MD [address] [place] [address] Rheumatology 05/21/24 Ashley Chanel OD [address] [place] [address] Optometry 05/21/24 documented as of this encounter
--- OUTSIDE RECORDS SUMMARY | 2024-09-18 09:34 | XMS_ITS | Encounter Summary ---
Author Organization [employer] Address [address] [facility] 7t [place] [address] Care Team Providers Care Manager Corporate Communications Name Role Phone Marjan Sams MD Primary Care Provider [phone]- [phone] Esteban Nice MD Unavailable Ashley Chanel OD Unavailable [phone] Encounter Details Date Type Department Care Team (Late st Contact Info) Description 03/22/2023 Abstract [facility] [address] [place] [address] Marjan Sams MD 230 [place] [address] Preventative health care; Osteoarthritis of knee, unspecified [...] EDT Travel History Travel Start Travel End [facility] 09/04/2024 09/10/2024 documented as of this encounter Plan of Treatment Upcoming Encounters Date Type Department Care Team (Late st Contact Info) Description 10/03/2024 10:30 AM EDT Office Visit [facility] [address] [place] [address] Marjan Sams MD [address] [place] [address] 11/14/2024 9:30 AM EDT Clinical Support [facility] [address] [place] [address] Viridiana Hernández, RN [address] [place] [address] documented as of this encounter Visit Diagnoses Diagnosis Preventative health care Routine general medical examination at a health care facility Osteoarthritis of knee, unspecified laterality, unspecified osteoarthritis type documented in this encounter Additional Health Concerns Assessment Noted Time PHQ-9 Depression Total Score: 0 11/04/19 23 10:28 AM EDT documented as of this encounter Care Teams Manager Corporate Communications Relationship Specialty Start Date End Date Marjan Sams MD [address] [place] [address] PCP - General Family Medicine 06/04/18 Esteban Nice MD [address] [address] Rheumatology 05/21/24 Ashley Chanel OD [address] [place] [address] Optometry 05/21/24 documented as of this encounter
--- OUTSIDE RECORDS SUMMARY | 2024-09-18 09:34 | XMS_ITS | Encounter Summary ---
Author Organization [employer] Address [address] [facility] 7t [place] [address] Care Team Providers Care Senior Java Programmer Analyst Name Role Phone Marjan Sams MD Primary Care Provider [phone]- [phone] Esteban Nice MD Unavailable Ashley Chanel OD Unavailable [phone] Reason for Visit * Reason Onset Date Comments Nurse Triage 09/18/2023 Encounter Details Date Type Department Care Team (Late st Contact Info) Description 09/18/2023 Telephone [facility] [address] [place] [address] Marjan Sams MD [address] [place] [address] Nurse Triage Social History Tobacco Use Types [...] EDT Travel History Travel Start Travel End [facility] 09/04/2024 09/10/2024 documented as of this [...] Description 10/03/2024 10:30 AM EDT Office Visit [facility] [address] [place] [address] Marjan Sams MD [address] [place] [address] 11/14/2024 9:30 AM EDT Clinical Support [facility] [address] [place] [address] Viridiana Hernández RN [address] [place] [address] documented as of this encounter Visit Diagnoses Not on filedocumented in this encounter Additional Health Concerns Assessment Noted Time PHQ-9 Depression Total Score: 0 11/04/19 23 10:28 AM EDT documented as of this encounter Care Teams Senior Java Programmer Analyst Relationship Specialty Start Date End Date Marjan Sams MD [address] [place] [address] PCP - General Family Medicine 06/04/18 Esteban Nice MD [address] [place] [address] [address] [place] [address] Rheumatology 05/21/24 Ashley Chanel OD [address] [place] [address] Optometry 05/21/24 documented as of this encounter
--- OUTSIDE RECORDS SUMMARY | 2024-09-18 09:34 | XMS_ITS | Encounter Summary ---
Author Organization [employer] Address [address] [facility] 7t [place] [address] Care Team Providers Care Research Attorney Name Role Phone Marjan Sams MD Primary Care Provider [phone]- [phone] Esteban Nice MD Unavailable Ashley Chanel OD Unavailable Reason for Visit * Reason Onset Date Comments Med Refill 08/20/2024 Encounter Details Date Type Department Care Team (Late st Contact Info) Description 08/20/2024 Telephone [facility] [address] [place] [address] Marjan Sams MD [address] [place] [address] Med Refill Social History Tobacco Use Types [...] Travel History Travel Start Travel End [facility] 09/04/2024 09/10/2024 documented as of this encounter Miscellaneous Notes * Telephone Encounter - Pj Mondragon - 08/20/2024 8:09 AM EDT TC from pt requesting medication refill. Medications needing refill : oxyCODONE-acetaminophen (Percocet) 5-325 MG tablet To be sent to: [facility]/pharmacy #[id number] [place] [address] - [address] [place] [address] documented in this encounter Plan of Treatment Upcoming Encounters Date Type Department Care Team (Late st Contact Info) Description 10/03/2024 10:30 AM EDT Office Visit [facility] [address] [place] [address] Marjan Sams MD [address] [place] [address] 11/14/2024 9:30 AM EDT Clinical Support [facility] [address] [place] [address] Viridiana Hernández RN 505 [place] [address] documented as of this encounter Visit Diagnoses Not on filedocumented in this encounter Additional Health Concerns Assessment Noted Time PHQ-9 Depression Total Score: 4 02/13/20 24 9:45 AM EDT documented as of this encounter Care Teams Research Attorney Relationship Specialty Start Date End Date Marjan Sams MD [address] [place] [address] PCP - General Family Medicine 06/04/18 Esteban Nice MD [address] [place] [address] [place] [address] Rheumatology 05/21/24 Ashley Chanel OD [address] [place] [address] Optometry 05/21/24 documented as of this encounter
--- OUTSIDE RECORDS SUMMARY | 2024-09-18 09:34 | XMS_ITS | Encounter Summary ---
Author Organization [employer] Address [address] [facility] 7t [place] [address] Care Team Providers Care Trust Operations Assistant Name Role Phone Marjan Sams MD Primary Care Provider [phone]- [phone] Esteban Nice MD Unavailable Ashley Chanel OD Unavailable [phone] Reason for Visit * Reason Onset Date Comments Med Refill 01/19/2023 Encounter Details Date Type Department Care Team (Late st Contact Info) Description 01/19/2023 Telephone [facility] MEDICINE [address] [place] [address] Marjan Sams MD 230 [place] [address] Med Refill Social History Tobacco Use Types [...] * Telephone Encounter - Ranjan Jung - 01/19/2023 10:23 AM EDT Tc from pt requesting med refill on oxyCODONE-acetaminophen (Percocet) 5-325 MG tablet Please sent to [facility]/pharmacy #[id number] [place], [place] - [address] [place] [address] documented in this encounter Plan of Treatment Upcoming Encounters Date Type Department Care Team (Late st Contact Info) Description 10/03/2024 10:30 AM EDT Office Visit [address] [address] Marjan Sams MD [address] [place] [address] 11/14/2024 9:30 AM EDT Clinical Support [address] [address] Viridiana Hernández, RN [address] [place] [address] documented as of this encounter Visit Diagnoses Not on filedocumented in this encounter Additional Health Concerns Assessment Noted Time PHQ-9 Depression Total Score: 0 11/04/19 23 10:28 AM EDT documented as of this encounter Care Teams Trust Operations Assistant Relationship Specialty Start Date End Date Marjan Sams MD [address] [place] [address] PCP - General Family Medicine 06/04/18 Esteban Nice MD [address] [place] [address] [place] [address] Rheumatology 05/21/24 Ashley Chanel OD [address] [place] [address] Optometry 05/21/24 documented as of this encounter
--- OUTSIDE RECORDS SUMMARY | 2024-09-18 09:35 | XMS_ITS | Encounter Summary ---
Author Organization [employer] Address [address] [facility] 7t [place] [address] Care Team Providers Care Waste Management Recycling Technician Name Role Phone Marjan Sams MD Primary Care Provider [phone]- [phone] Esteban Nice MD Unavailable Ashley Chanel OD Unavailable Reason for Visit * Reason Onset Date Comments Med Refill 09/18/2024 Encounter Details Date Type Department Care Team (Late st Contact Info) Description 09/18/[address] [facility] MEDICINE [address] [place] [address] Marjan Sams MD [address] [place] [address] Med Refill Social History Tobacco Use Types [...] EDT Travel History Travel Start Travel End [facility] 09/04/2024 09/10/2024 documented as of this encounter Miscellaneous Notes * Telephone Encounter - Cee Gama - 09/18/2024 8:03 AM EDT TC from pt requesting medication refill. Medications needing refill : oxyCODONE-acetaminophen (Percocet) 5-325 MG tablet To be sent to: [address] [address] documented in this encounter Plan of Treatment Upcoming Encounters Date Type Department Care Team ([facility] st Contact Info) Description 10/03/2024 10:30 AM EDT Office Visit [facility] MEDICINE [address] [place] [address] Marjan Sams MD [address] [place] [address] 11/14/2024 9:30 AM EDT Clinical Support [facility] MED[facility]INE [address] [place] [address] Viridiana Hernández KIMBERLY [address] [place] [address] documented as of this encounter Visit Diagnoses Not on filedocumented in this encounter Additional Health Concerns Assessment Noted Time PHQ-9 Depression Total Score: 4 02/13/20 24 9:45 AM EDT documented as of this encounter Care Teams Waste Management Recycling Technician Relationship Specialty Start Date End Date Marjan Sams MD [address] [place] [address] PCP - General Family Medicine 06/04/18 Esteban Nice MD [address] [place] [address] Rheumatology 05/21/24 Ashley Chanel OD [address] [place] [address] Optometry 05/21/24 documented as of this encounter
--- OUTSIDE RECORDS SUMMARY | 2024-09-18 09:35 | XMS_ITS | Encounter Summary ---
Author Organization [employer] Address [address] [facility] 7t [place] [address] Care Team Providers Care Electrical Superintendent Name Role Phone Marjan Sams MD Primary Care Provider [phone]- [phone] Esteban Nice MD Unavailable Ashley Chanel OD Unavailable [phone] Reason for Visit * Reason Onset Date Comments Uber Set-up 01/23/2024 Encounter Details Date Type Department Care Team (Late st Contact Info) Description 01/23/2024 Telephone [facility] MEDICINE [address] [place] [address] Marjan Sams MD 230 [place] [address] Uber Set-up Social History Tobacco Use Types [...] EDT Travel History Travel Start Travel End [facility] 09/04/2024 09/10/2024 documented as of this encounter Miscellaneous Notes * Telephone Encounter - Kadeem Martinez - 01/23/2024 10:00 AM EDT Tc from patient calling to request a uber set-up for 01/29 appt report writer did confirm address and call back number documented in this encounter Plan of Treatment Upcoming Encounters Date Type Department Care Team (Late st Contact Info) Description 10/03/2024 10:30 AM EDT Office Visit [facility] MEDICINE [address] [place] [address] Marjan Sams MD [address] [place] [address] 11/14/2024 9:30 AM EDT Clinical Support [facility] MEDICINE [address] [place] [address] Viridiana Hernández RN [address] [place] [address] documented as of this encounter Visit Diagnoses Not on filedocumented in this encounter Additional Health Concerns Assessment Noted Time PHQ-9 Depression Total Score: 0 11/04/19 23 10:28 AM EDT documented as of this encounter Care Teams Electrical Superintendent Relationship Specialty Start Date End Date Marjan Sams MD [address] [place] [address] PCP - General Family Medicine 06/04/18 Esteban Nice MD [address] [place] [address] [address] [place] [address] Rheumatology 05/21/24 Ashley Chanel OD 180 [place] [address] Optometry 05/21/24 documented as of this encounter
--- OUTSIDE RECORDS SUMMARY | 2024-09-18 09:35 | XMS_ITS | Encounter Summary ---
Author Organization [employer] Address [address] [facility] 7t [place] [address] Care Team Providers Care Editor House Organ Name Role Phone Marjan Sams MD Primary Care Provider [phone] Esteban Nice MD Unavailable Ashley Chanel OD Unavailable [phone] Reason for Visit * Reason Onset Date Comments Med Refill 02/21/2024 Encounter Details Date Type Department Care Team (Late st Contact Info) Description 02/21/[address] [facility] [address] [place] [address] Marjan Sams MD [address] [place] [address] Med Refill Social History Tobacco Use Types [...] MG tablet To be sent to: [facility]/pharmacy #[id number] [place] [address] - [address] [place] [address] documented in this encounter Plan of Treatment Upcoming Encounters Date Type Department Care Team (Late st Contact Info) Description 10/03/2024 10:30 AM EDT Office Visit [facility] [address] [place] [address] Marjan Sams MD [address] [place] [address] 11/14/2024 9:30 AM EDT Clinical [address] [facility] [address] [place] [address] Viridiana Hernández RN [address] [place] [address] documented as of this encounter Visit Diagnoses Not on filedocumented in this encounter Additional Health Concerns Assessment Noted Time PHQ-9 Depression Total Score: 4 02/13/20 24 9:45 AM EDT documented as of this encounter Care Teams Editor House Organ Relationship Specialty Start Date End Date Marjan Sams MD [address] [place] [address] PCP - General Family Medicine 06/04/18 Esteban Nice MD [address] [place] [address] [address] [place] [address] Rheumatology 05/21/24 Ashley Chanel OD [address] [place] [address] Optometry 05/21/24 documented as of this encounter
--- OUTSIDE RECORDS SUMMARY | 2024-09-18 09:35 | XMS_ITS | Encounter Summary ---
Author Organization [employer] Address [address] [place] [address] 7t [place] [address] Care Team Providers Care Taxation Consultant Name Role Phone Marjan Sams MD Primary Care Provider [phone] Esteban Nice MD Unavailable Ashley Chanel OD Unavailable [phone] Encounter Details Date Type Department Care Team (Late st Contact Info) Description 06/29/2022 Abstract [facility] [address] [place] [address] Marjan Sams MD [address] [place] [address] [phone] Social History Tobacco Use Types Packs/Day Years [...] Description 10/03/2024 10:30 AM EDT Office Visit [facility] [address] [place] [address] [phone] Marjan Sams MD [address] [place] [address] [phone] 11/14/2024 9:30 AM EDT Clinical Support [facility] [address] [place] [address] Viridiana Hernández RN 505 [place] [address] documented as of this encounter Procedures Procedure Name Priority Date/Time Associated Diagnosis Comments PAP SMEAR Routine 08/10/2017 12:00 AM EST HM COLONOSCOPY Routine 03/30/2017 12:40 PM EDT documented in this encounter Results * Pap Smear (08/10/2017 12:00 AM EST) Swab us Historical Provider LAB CYTOLOGY ORDERABLES F inal Result IMAGING * Hm Colonoscopy (03/30/2017 12:40 PM EDT) us Historical Provider HEALTH MAINTENANCE Final Result documented in this encounter Visit Diagnoses Not on filedocumented in this encounter Care Teams Taxation Consultant Relationship Specialty Start Date End Date Marjan Sams MD [address] [place] [address] PCP - General Family Medicine 06/04/18 Esteban Nice MD [address] [place] [address] Rheumatology 05/21/24 Ashley Chanel OD [address] [place] [address] Optometry 05/21/24 documented as of this encounter
--- OUTSIDE RECORDS SUMMARY | 2024-09-18 09:35 | XMS_ITS | Clinical Summary ---
Author Organization [employer] Address [address] [facility] 7t [place] [address] Care Team Providers Care Commodity Industry Analyst Name Role Phone Marjan Sams MD Primary Care Provider [phone] Esteban Nice MD Unavailable Ashley Chanel OD Unavailable [phone] Allergies No known active allergies Medications [...] unspecified SLE type, unspecified organ involvement status (CMS/[facility]) Take 200 mg by mouth 2 times [...] Inhalation. Once per day. 1 each 02/13/20 24 Active albuterol 108 (90 Base) MCG/ACT inhalerIndicat ions:Chronic obstructive pulmonary disease, unspecified COPD type (CMS/HCC) Take 2 puffs po q 4 hours prn 18 g 1 02/13/20 24 Active Blood Pressure kit 1 each 1 (one) time per week. 1 kit 08/20/19 25 Active oxyCODONE-acet aminophen (Percocet) 5-325 MG tabletIndicati ons:Arthritis of both knees Take 1 tablet by mouth every 12 (twelve) hours if needed for severe pain. 56 tablet 08/21/19 25 Active gabapentin (Neurontin) 300 MG capsule Take [...] Whiteside RN Problem Noted Date Diagnosed Date Chronic pain of left ankle 09/16/2024 Overview (09/16/2024): MRI 09/15/24 MR/MR ankle LT wo/w con IMPRESSION: 1. [...] There is a small tibiotalar joint effusion. -referral to ortho placed 09/03/24 Long-term current use of opiate analgesic 2024 [...] due after 06/25/24 -eye care facilitated by [facility] in [place] -dental home is [facility] -health care proxy: pt reports has at home 06/25/23 Assessment & Plan (06/25/2023 11:24 AM EST): -next physical exam due after 06/25/24 -eye care facilitated by [facility] in [place] -dental home is [facility] -health care proxy: pt reports has at [...] as pharmacomtherapy, [facility] smoking cessation group, and [facility] pharmacy smoking cessation clinic Discussed USPSTF recommends annual lung cancer screening with low [...] as pharmacomtherapy, [facility] smoking cessation group, and [facility] pharmacy smoking cessation clinic Discussed USPSTF recommends annual lung cancer screening with low [...] oral ulcers, bilateral elbow arthritis, ++ URIAH, Mott/RADIO BROADCASTER, ++ dsDNA, low C3) -methotrexate caused oral [...] eye exams with [facility] in [place] -note from Dr. Rodriguez 04/15/24 Discussed the possibility of adding DMARDs such as Benlysta. Patient is not interested. Adjust hydroxychloroquine dose to 400 mg daily x5 days a week and 200 mg daily x2 days a week Labs before next visit in 6 -followed by [facility] Chanel note from 04/20/24 reviewed Assessment & [...] Encounters Date Type Department Care Team Description 09/18/2024 Telephone [facility] MEDICINE [address] [place] [address] Marjan Sams MD Med Refill 09/12/2024 10:30 AM EDT Clinical Support [address] [address] Viridiana Hernández, RN Chronically on opiate therapy (Primary Dx) 09/12/2024 9:15 AM EDT Office Visit [facility] OPTOMETRY [address] [place] [phone] Nicholas, [place], OD Presbyopia (Primary Dx) 09/12/2024 Travel 09/10/2024 Telephone [facility] MEDICINE [address] [place] [address] Baylee Caballero, transformation analyst 09/03/2024 Orders Only [address] [address] Elizabeth Ly DO Closed fracture of left foot, initial encounter (Primary Dx); Abnormal plain x-ray of foot; Chronic pain of left ankle 08/29/[address] [address] Marjan Sams MD Results 08/28/2024 9:00 AM EDT Office Visit [facility] [address] [place] [address] Elizabeth Ly DO Left foot pain (Primary Dx); Paresthesia of left foot 08/20/2024 Refill [facility] [address] [place], [place] [phone] Viridiana Hernández, RN Arthritis of both knees 08/20/[address] [address] Marjan Sams MD Appointment Request 08/20/[address] [address] Marjan Sams MD Med Refill 08/19/2024 12:00 PM EDT Office Visit [address] [phone] MehrdadElizabeth sotoDO 08/19/2024 Travel 08/18/2024 Telephone [facility] MEDICINE [address] [place], [place] [phone] Marjan Sams MD Call Back Request 08/01/2024 10:00 AM EST Clinical Support [facility] MEDICINE [address] [place] [address] Viridiana Hernández, RN Chronically on opiate therapy 08/01/2024 Telephone [facility] [address] [place] [address] Viridiana Hernández RN 08/01/2024 Refill [facility] [address] [place], [place] [phone] Viridiana Hernández RN 08/01/2024 Travel 07/23/2024 Refill [facility]INE [address] [place] [address] Marjan Sams MD Arthritis of both knees from Last 3 Months Immunizations Name Administration Dates Next Due Hep A, Adult 06/25/2023,10/05/2022 Hep B, adult 04/06/2023,11/03/2022,10/05/2022 INFLUENZA INJECTABLE QUADRIV ALANT CCIIV4 MDCK Multi-dose vial 03/10/2022 Influenza injectable quadriv alent IIV4 with preservative 02/20/2018,02/24/2015 Influenza injectable quadriv alent preservative free 04/06/2023,02/16/2021,03/11/2020,07/10,05/10/2016 Influenza, IIV3, injectable 02/12/2014,0 02/17/2011,04/20/2008,02/20 Influenza, Split (incl. hitesh fied surface antigen) [...] EDT Travel History Travel Start Travel End [facility] 09/04/2024 09/10/2024 Last Filed Vital Signs Vital Sign Reading [...] Description 10/03/2024 10:30 AM EDT Office Visit [facility] MEDICINE [address] [place] [address] Marjan Sams MD [address] [place] [address] 11/14/2024 9:30 AM EDT Clinical Support [facility] MEDICINE [address] [place] [address] Viridiana Hernández, RN [address] [place] [address] Health Maintenance Due Date Last Done Comments CT Colonography 1966 FIT DNA/Cologuard 1966 FIT 1966 FOBT 1966 Sigmoidoscopy 1966 Alcohol/Substance Use Screening 1978 Mammogram 09/23/2024 03/25/2024, 09/0 02/2024, 08/27/2023, Additional history exists Depression Screening 02/12/2025 02/13/2024, 02/13/20 24 SDOH Screening 02/12/2025 02/13/2024 Tobacco Screening 08/28/2025 08/28/2024 Colonoscopy 03/30/2027 03/30/2017 Colorectal Cancer Screening 03/30/2027 Cervical Cancer Screening 11/04/2027 HPV/Cotest 11/04/2027 11/03/2022, 03/0 02/2018, 08/04/2016 Pap Smear 11/04/2027 11/03/2022, 08/10/2017 [...] AM EDT Abnormal plain x-ray of foot POCT BLADE-14 URINE DRUG SCREEN Routine 09/12/2024 10:11 AM EDT Chronically on opiate therapy XR FOOT 3+ VIEWS LEFT Routine 08/28/2024 10:55 AM EDT Left foot pain POCT BLADE-14 URINE DRUG SCREEN Routine 08/01/2024 9:53 AM EST Chronically on opiate therapy BI MAMMOGRAM DIAGNOSTIC TOMOSYNTHESIS BILATERAL Routine 03/25/2024 [...] Recently Relevant to Health Maintenance Results * MR Ankle w/ and w/o Contrast Left (09/16/2024 10:46 AM EDT) Anatomical Region Laterality Modality Lower Extremities, Ankle Left Magneti c Resonance 09/16/2024 10:4 6 AM EDT Narrative 09/16/2024 12:40 PM EDT ? [facility] ?[address] ?[place] [address] ? Magnetic Resonance Report ? Signed ? Patient: Sunni,Caitlyn ?MR#: [id number] ?? [id number] ? : 1965 ?Acct:[id number] ? Age/Sex: 59 / F ?ADM Date: 04/15/25 ? Loc: HO.NEURO ? Attending Dr: Elizabeth Ly DO ? Ordering Physician: Elizabeth Ly DO ?? Date of Service: 09/16/24 ?? Procedure(s): MR ankle LT wo/w con ?? Accession Number(s): [id number] ? cc: Marjan Sams MD; Elizabeth Ly [...] DD/ 1046 ? TD/TT: 09/16/24 1145 ? Anode Worker: ? Procedure Note Surjit, Jessica - 09/16/[address] [address] Magnetic Resonance Report Signed Patient: Tammy Moeller#: [id number] : 1965Acct:[id number] Age/Sex: 59 / FADM Date: 09/16/24 Loc: .NEURO Attending Dr: Elizabeth Ly DO Ordering Physician: Elizabeth Ly DO Date of Service: 09/16/24 Procedure(s): MR ankle LT wo/w con Accession Number(s): [id number] cc: Marjan Sams MD; Elizabeth Ly DO [...] 09/16/24 1237 DD/ 1046 TD/TT: 09/16/24 1145 Anode Worker: Elizabeth Ly DO IMG MRI PROCEDURES Final Res ult * POCT BLADE-14 Urine Drug Screen (09/12/2024 10:11 AM EDT) Only the most recent of2 resultswithin the time period is included. Oxycodone Screen, Urine Positive Urine Urine specimen obtained by clean catch procedure / Unknown 09/12/2024 10:11 AM EDT Narrative Viridiana Hernández RN - 09/12/2024 10:11 AM EDT .UTOX cup Lot#[id number] Exp. 01/21/26 Internal Pass Control Marjan Sams MD POINT OF CARE TEST ENTER/E DIT ORDERABLES Final Result * XR Foot 3+ Views Left (08/28/2024 10:55 AM EDT) Anatomical Region Laterality Modality Lower Extremities, Foot Left Radiogra phic Imaging 08/28/2024 10:5 5 AM EDT Narrative 08/28/2024 10:56 AM EDT ?[facility] ?[address] ?[place] [address] ?XRay Report ? Signed ? Patient: Tammy Moeller ?MR#: [id number] ?? [id number] ? : 1965 ?Acct:[id number] ? Age/Sex: 59 / F ?ADM Date: 08/28/24 ? Loc: HO.HHCX ? Attending Dr: Elizabeth Ly DO ? Ordering Physician: Elizabeth Ly DO ?? Date of Service: 08/28/24 ?? Procedure(s): XR foot LT min 3V ?? Accession Number(s): [id number] ? cc: Elizabeth Ly DO ? CLINICAL [...] DD/ 1055 ? TD/TT: 08/28/24 1055 ? Anode Worker: ? Procedure Note Surjit, Image - 08/28/2024 [place] [address] XRay Report Signed Patient: Tammy Moeller#: [id number] : 1965Acct:[id number] Age/Sex: 59 / FADM Date: 08/28/24 Loc: HO.HHCX Attending Dr: Elizabeth Ly DO Ordering Physician: Elizabeth Ly DO Date of Service: 08/28/24 Procedure(s): XR foot LT min 3V Accession Number(s): [id number] cc: Elizabeth Ly DO CLINICAL HISTORY: foot [...] 08/28/24 1056 DD/ 1055 TD/TT: 08/28/24 1055 Anode Worker: us Elizabeth Malachi DO IMG XR PROCEDURES Final Resu lt * BI Mammogram Diagnostic Tomosynthesis Bilateral (03/25/2024 2:00 PM EDT) Anatomical Region Laterality Modality Breast Bilateral Mammography 03/25/2024 2:00 PM EDT Narrative 03/25/2024 2:50 PM EDT ? [facility] ? [address] ?[place] [address] ? Mammography Report ? Signed ? Patient: Sunni,Tammy Garrett ?MR#: [id number] ?? [id number] ? : 1965 ?Acct:[id number] ? Age/Sex: 58 / F ?ADM Date: 10/22/24 ? Loc: HO.MAMMO ? Attending Dr: Marjan Sams MD ? Ordering Physician: Marjan Sams MD ?Results: 2B ?? enign Findings ? Date of Service: 10//24 ?Follow Up: 1 Year From Orig ?? inal Mammogram ? Procedure(s): MM tomosynthesis diagnostic BI ?? Accession Number(s): [id number] ? cc: Marjan Sams MD ? EXAMINATION: [...] signed by Amor Jimenez MD in OV> ?03/25/241446 ? DD/ 1400 ? TD/TT: 03/25/24 1422 ? Anode Worker: ? Procedure Note Donarabella, Image - 03/25/2024 [facility] [address] [place] [address] Mammography Report Signed Patient: Tammy Moeller#: [id number] : 1965Acct:[id number] Age/Sex: 58 / FADM Date: 03/25/24 Loc: HO.MAMMO Attending Dr: Marjan Sams MD Ordering Physician: Marjan Sams MDResults: 2B enign Findings Date of Service: 03/25/24Follow Up: 1 Year From Orig inal Mammogram Procedure(s): MM tomosynthesis diagnostic BI Accession Number(s): [id number] cc: Marjan Sams MD EXAMINATION: MM DIAGNOSTIC [...] Amor Jimenez MD 03/25/2024 02:47 PM EDT Dictated By: Amor Jimenez MD Signed By: <Electronically signed by Amor Jimenez MD in OV> 03/25/24 1447 DD/ 1400 TD/TT: 03/25/24 1422 Anode Worker: us Marjan Sams MD IMG BI PROCEDURES Final Re sult * HIV-1/2 Antigen and Antibodies, Fourth Generation, with Reflexes (02/13/2024 10:36 AM EDT) HIV AB/AG Nonreactive Nonreactive [facility] Comment:HIV-1 p24 Ag and/or HIV-1/HIV-2 Ab not detected.A test result that is nonreactive does not exclude thepossibility of exposure to or infection with HIV-1 and/orHIV-2. Nonreactive results in this assay for individualswith prior exposure to HIV-1 and/or HIV-2 may be due toantigen and antibody levels that are below the limit ofdetection of this assay.The [employer] HIV Ag/Ab Combo assay result andsupplemental assay results should be interpreted inconjunction with the patient's clinical presentation,history and other laboratory results. If the results areinconsistent with clinical evidence, additional testing issuggested to confirm the result. Blood Venous blood specimen / Unknown 02/13/2024 10:36 AM EDT 02/13/2024 11:19 AM EDT us Marjan Sams MD LAB BLOOD ORDERABLES Final Result [facility] [address] [place] [phone] * (ABNORMAL) Lipid Panel, Standard (02/13/2024 10:36 AM EDT) Triglycerides 115 <150 mg/dL [facility] Comment:Desirable Triglyceri de: less than 150 mg/dLBorderline High Triglyceride 150-199 mg/dLHigh Triglyceride: 200-499 mg/dLVery High Triglyceride: greater than or equal to 5OO mg/dL Cholesterol 178 <200 mg/dL [facility] Comment:Desirable Cholestero l: less than 200 mg/dLBorderline High Cholesterol: 200-239 mg/dLHigh Cholesterol: greater than 239 mg/dL LDL Cholesterol Calculated 114(H) <100 mg/dL [facility] Comment:Desirable LDL: less than 100 mg/dLNear Optimal/Above Optimal LDL: 110- 129 mg/dLBorderline High LDL: 130-159 mg/dLHigh LDL: 160-189 mg/dLVery High LDL: greater than or equal to 190 mg/dL HDL Cholesterol 41 >40 mg/dL [facility] Comment:Desirable HDL: great er than 40 mg/dL Note: This HDL assay may give artificially low results in patients with liver disease. Blood Venous blood specimen / Unknown 02/13/2024 10:36 AM EDT 02/13/2024 11:19 AM EDT Marjan Sams MD LAB BLOOD ORDERABLES Final Result [facility] [address] [place] [phone] * Thinprep PAP, HPV mRNA E6/E7 RFX HPV 16,18/45, Chlamydia/N. Gonorrhoeae (11/03/2022 12:00 AM EDT) Clinical Information: ROUTINE [facility] LMP: NONE GIVEN Saratat Prev. PAP: NONE GIVEN [facility] Prev. BX: NO [facility] SOURCE: None given [facility] Statement Of Adequacy: SATISFACTORY FOR EVALUATION [facility] Interpretation/Re sult: [facility] Comment: Negative for intraepithelial lesion or malignancy. Atrophic pattern; predominantly parabasal cells Tracer Lathe Set Up Operator: Farheen Exabeam Comment: WXW, CT(ASCP) CT Screening Location: [place] [address] (Always Message) [facility] Elias Borges Urzeda Comment: EXPLANATORY NOTE: The Pap is a [...] HPV nRNA E6/E7 Not Detected Not Detected [facility] Comment: Methodology: Mop Man-Mediated Amplification This assay detects E6/E7 viral messenger RNA (mRNA) from 14 high-risk HPV types (16,18,31,33,35,39,45,51,52,56,58,59,66,68). Cervical sources are required for HPV testing. If a vaginal source from a patient who has had a total hysterectomy with removal of cervix was submitted, please contact the testing laboratory for alternative testing options. For additional information, please refer to http://[employer]/faq/BUM184l4 (This link if provided for information/ educational purposes only.) Chlamydia trachomatis RNA, TMA, Urogenital NOT DETECTED NOT DETECTED Saratat Neisseria gonorrhoeae RNA, TMA, Urogenital NOT DETECTED NOT DETECTED [facility] (Always Message) [facility] Comment: The analytical performance characteristics of this assay, when used to test SurePath(TM) specimens have been determined by [employer]. The modifications have not been cleared or approved by the FDA. This assay has been validated pursuant to the CLIA regulations and is used for clinical purposes. For additional information, please refer to https://[employer]/faq/ZHN593 (This link is being provided for information/ educational purposes only.) 11/03/2022 11/06/2022 9:1 5 PM EDT Narrative [facility] - 11/09/2022 10:33 AM EDT FASTING: UNKNOWN Marjan Sams MD LAB PATHOLOGY ORDERABLES F inal Result [facility] [address], [place] [address] [employer] [address] [place] [phone] * Hepatitis C Antibody with Reflex to HCV, RNA, Quantitative, Real-Time PCR (10/31/2022 8:11 AM EDT) Hepatitis C Antibody NON-REACT CHOCO NON-REACT CHOCO [facility] Index 0.43 <1.00 [facility] Comment: HCV antibody was non-reactive. There is no laboratory evidence of HCV infection. In most cases, no further action is required. However, if recent HCV exposure is suspected, a test for HCV RNA (test code 33569) is suggested. For additional information please refer to http://[employer]/faq/USP57y5 (This link is being provided for informational/ educational purposes only.) Blood Venous blood specimen / Unknown 10/31/2022 8:11 AM EDT 10/31/2022 8:11 AM EDT Narrative [facility] - 10/31/2022 9:53 PM EDT FASTING:YES FASTING: YES us Marjan Sams MD LAB BLOOD ORDERABLES Final Result [facility] [address], [place] [address] [facility] [address] [place] [address] * Hm Colonoscopy (03/30/2017 12:40 PM EDT) us Historical Provider HEALTH MAINTENANCE Final Result from Last 3 Months or Most Recently Relevant to Health Maintenance Insurance [employer] MEDICARE REPLACEMENT Care Teams Commodity Industry Analyst Relationship Specialty Start Date End Date Beltrami, MD Marjan [address] [place] [address] PCP - General Family Medicine 06/04/18 Esteban Nice MD [address] [place] [address] [address] [place] [address] Rheumatology 05/21/24 Ashley Chanel OD [address] [place] [phone] Optometry 05/21/24
[2024-09-18 09:36] LABS: MANUAL DIFF FLAG NO
[2024-09-18 10:21] LABS: Basophils Percent Auto 0.3 % (0-2); Eosinophils Percent Auto 0.6 % (0-4); Hematocrit 32.3 % (37.0-47.0); Hemoglobin 10.3 g/dl (12.0-16.0); Imm Gran Abs Auto 0.01 X10*3/uL (0.00-0.03); Imm Gran Pct Auto 0.3 % (0.0-0.4); Lymphocytes Absolute Auto 0.9 X10*3/uL (1.2-4.9); Lymphocytes Percent Auto 26.6 % (20-40); Mean Corpuscular HGB Conc 31.9 g/dl (31.0-35.0); Mean Corpuscular Volume 94.2 fL (80.0-98.0); Mean Platelet Volume 9.8 fL (9.4-12.3); Monocytes Absolute Auto 0.2 X10*3/uL (0.1-1.2); Monocytes Percent Auto 5.1 % (2-11); Neutrophils Absolute Auto 2.2 x10*3/uL (2.0-8.3); Neutrophils Percent Auto 67.1 % (45-73); Platelet Count 241 X10*3/uL (160-400); Red Blood Count 3.43 X10*6/uL (4.20-5.50); Red Cell Distribution Width 18.3 % (11.0-16.0); White Blood Count 3.3 X10*3/uL (4.8-10.8)
[2024-09-18 10:59] LABS: Erythrocyte Sedimentation Rate 85 MM/HR (0-20)
[2024-09-18 11:47] LABS: Appearance Urine Clear; Color Urine Yellow; Glucose Urine UA Negative (Negative); Leukocyte Esterase Urine Trace (Negative); Nitrite Urine Negative (Negative); PH 5.5 (5.0-9.0); Specific Gravity - Urine 1.015 (1.005-1.025); UMIC TRIGGER UA YES; Urine Blood Negative (Negative); Urine Ketones Negative (Negative); Urine Protein Trace mg/dL (Neg-Trace)
[2024-09-18 11:51] LABS: Alanine Aminotransferase 9 U/L (0-31); Albumin Level 3.4 g/dL (3.5-5.0); Alkaline Phosphatase 68 U/L (39-117); Anion Gap 12 (12-20); Aspartate Amino Transferase 20 U/L (5-31); Bilirubin Total 0.4 mg/dL (0.0-1.0); Blood Urea Nitrogen 11 mg/dL (9-16); C Reactive Protein 2.43 mg/dL (< or = 0.50); Carbon Dioxide 23 mmol/L (22-29); Chloride 110 mmol/L (96-108); Estimated Glomerular Filt Rate > 60; Glucose Random 79 mg/dL (60-115); Potassium 3.7 mmol/L (3.3-5.1); Sodium 141 mmol/L (135-145); Total Protein 8.4 g/dL (6.5-8.0)
[2024-09-18 11:59] LABS: Bacteria Urine 3+ (None Seen); Hyaline Casts Urine 0-2 /LPF (0-2); RBC Urine 0-2 /HPF (0-2); WBC Urine 0-5 /HPF (0-5)
[2024-09-18 12:07] LABS: Protein/Creatinine Ratio, Ur 0.12 (<0.2); Total Protein Urine Random 11 mg/dL (<12)
[2024-09-19 15:39] LABS: Complement C3 112 mg/dL (83-193)
[2024-09-19 22:33] LABS: Anti DNA DS Antibody 85 IU/mL
== END 2024-09-18 08:52 | disposition home or self-care (01) ==
LOC: HO.LAB 08:51
PROVIDERS: PCP Family Medicine; Visit Provider Student in an Organized Health Care Education/Training Program
DX: M32.8 Other forms of systemic lupus erythematosus (principal)
CPT/HCPCS: 36415; 80053; 81001; 82570; 84156; 85025; 85652; 86140; 86160; 86225

== ENCOUNTER 2024-10-03 12:37 | Outpatient (REF) | payer MEDICARE, SELFPAY ==
--- OUTSIDE RECORDS SUMMARY | 2024-10-03 13:02 | XMS_ITS | Encounter Summary ---
Author Organization [employer] Address [address] [facility] 7t [place] [address] Care Team Providers Care Lawn Care Technician Name Role Phone Marjan Sams MD Primary Care Provider [phone] Esteban Nice MD Unavailable Ashley Chanel OD Unavailable [phone] Reason for Visit * Reason Onset Date Comments Med Refill 01/21/2024 Encounter Details Date Type Department Care Team (Late st Contact Info) Description 01/21/2024 Telephone [facility] MEDICINE [address] [place] [address] Marjan Sams MD [address] [place] [address] Med Refill Social History Tobacco Use Types [...] EDT Travel History Travel Start Travel End [facility] 09/04/2024 09/10/2024 documented as of this encounter Miscellaneous Notes * Telephone Encounter - Ranjan Jnug - 01/21/2024 9:15 AM EDT TC from pt requesting medication refill. Medications needing refill : oxyCODONE-acetaminophen (Percocet) 5-325 MG tablet To be sent to: [facility] documented in this encounter Plan of Treatment Upcoming Encounters Date Type Department Care Team (Late st Contact Info) Description 11/14/2024 9:30 AM EDT Clinical Support [facility] MEDICINE [address] [place] [address] Viridiana Hernández RN [address] [place] [address] documented as of this encounter Visit Diagnoses Not on filedocumented in this encounter Additional Health Concerns Assessment Noted Time PHQ-9 Depression Total Score: 0 11/04/19 23 10:28 AM EDT documented as of this encounter Care Teams Lawn Care Technician Relationship Specialty Start Date End Date Marjan Sams MD [address] [place] [address] PCP - General Family Medicine 06/04/18 Esteban Nice MD [address] [address] Rheumatology 05/21/24 Ashley Chanel OD [address] [place] [address] Optometry 05/21/24 documented as of this encounter
--- OUTSIDE RECORDS SUMMARY | 2024-10-03 13:02 | XMS_ITS | Encounter Summary ---
Author Organization [employer] Address [address] [facility] 7t [place] [address] Care Team Providers Care Field Gauger Name Role Phone Marjan Sams MD Primary Care Provider [phone] Esteban Nice MD Unavailable Ashley Chanel OD Unavailable Reason for Visit * Reason Onset Date Comments Med Refill 02/21/2024 Encounter Details Date Type Department Care Team (Late st Contact Info) Description 02/21/2024 Telephone [facility] MEDICINE [address] [place] [address] Marjan Sams MD 230 [place] [address] Med Refill Social History Tobacco Use Types [...] EDT Travel History Travel Start Travel End [facility] 09/04/2024 09/10/2024 documented as of this encounter Miscellaneous Notes * Telephone Encounter - Kadeem Martinez - 02/21/2024 8:16 AM EDT TC from pt requesting medication refill. Medications needing refill : oxyCODONE-acetaminophen (Percocet) 5-325 MG tablet To be sent to: [facility]/pharmacy #[id number] [place] [address] - [address] [place] [address] documented in this encounter Plan of Treatment Upcoming Encounters Date Type Department Care Team (Late st Contact Info) Description 11/14/2024 9:30 AM EDT Clinical Support [facility] MEDICINE [address] [place], [place] [phone] Viridiana Hernández RN [address] [place], [place] [phone] documented as of this encounter Visit Diagnoses Not on filedocumented in this encounter Additional Health Concerns Assessment Noted Time PHQ-9 Depression Total Score: 4 02/13/20 24 9:45 AM EDT documented as of this encounter Care Teams Field Gauger Relationship Specialty Start Date End Date Latrell, MD Marjan [address] [place] [address] PCP - General Family Medicine 06/04/18 Esteban Nice MD [address] [place] [address] [address] [place] [address] Rheumatology 05/21/24 Ashley Chanel OD [address] [place] [address] Optometry 05/21/24 documented as of this encounter
--- OUTSIDE RECORDS SUMMARY | 2024-10-03 13:02 | XMS_ITS | Encounter Summary ---
Author Organization [employer] Address [address] [facility] 7t [place] [address] Care Team Providers Care [employer] Supervisor Name Role Phone Marjan Sams MD Primary Care Provider [phone] Esteban Nice MD Unavailable Ashley Chanel OD Unavailable [phone] Reason for Visit * Reason Comments Med Refill Encounter Details Date Type Department Care Team (Late st Contact Info) Description 07/25/2023 Refill [facility] MEDICINE [address] [place] [address] Marjan Sams MD [address] [place] [address] Arthritis of both knees Social History Tobacco [...] EDT Travel History Travel Start Travel End [facility] 09/04/2024 09/10/2024 documented as of this encounter Plan of Treatment Upcoming Encounters Date Type Department Care Team (Late st Contact Info) Description 11/14/2024 9:30 AM EDT Clinical Support [facility] MEDICINE [address] [place] [address] Viridiana Hernández RN [address] [place] [address] documented as of this encounter Visit Diagnoses Diagnosis Arthritis of both knees documented in this encounter Additional Health Concerns Assessment Noted Time PHQ-9 Depression Total Score: 0 11/04/19 23 10:28 AM EDT documented as of this encounter Care Teams [employer] Stores [employer] Supervisor Relationship Specialty Start Date End Date Marjan Sams MD [address] [place] [address] PCP - General Family Medicine 06/04/18 Esteban Nice MD [address] [place] [address] Rheumatology 05/21/24 Ashley Chanel OD [address] [place] [address] Optometry 05/21/24 documented as of this encounter
--- OUTSIDE RECORDS SUMMARY | 2024-10-03 13:02 | XMS_ITS | Encounter Summary ---
Author Organization [employer] Address [address] [place] [address] [address] [address] Care Team Providers Care Title I Assistant Name Role Phone Marjan Sams MD Primary Care Provider [phone] Esteban Nice MD Unavailable Ashley Chanel OD Unavailable [phone] Encounter Details Date Type Department Care Team (Late Contact Info) Description 06/29/2022 Abstract [facility] MEDICINE [address] [place] [address] Marjan Sams MD [address] [place] [address] Social History Tobacco Use Types Packs/Day Years [...] Description 11/14/2024 9:30 AM EDT Clinical Support [facility] [address] [place] [address] Viridiana Hernández RN [address] [place] [address] documented as of this encounter Procedures Procedure [...] on filedocumented in this encounter Care Teams Title I Assistant Relationship Specialty Start Date End Date Marjan Sams MD [address] [place] [address] PCP - General Family Medicine 06/04/18 Esteban Nice MD [address] [place] [address] Rheumatology 05/21/24 Ashley Chanel OD [address] [place] [address] Optometry 05/21/24 documented as of this encounter
--- OUTSIDE RECORDS SUMMARY | 2024-10-03 13:02 | XMS_ITS | Encounter Summary ---
Author Organization [employer] Address [address] [facility] 7t [place] [address] Care Team Providers Care Transportation Agent Name Role Phone Marjan Sams MD Primary Care Provider [phone] Esteban Nice MD Unavailable Ashley Chanel OD Unavailable [phone] Encounter Details Date Type Department Care Team (Latest Contact Info) Description 10/01/2024 Travel Social History Tobacco Use Types Packs/Day Years Used Date Smoking Tobacco: Every Day Cigarettes Passive Smoke Exposure: Current Smokeless Tobacco: Never Alcohol Use Standard Drinks/Week Comments Yes 0 (1 standard drink = 0.6 oz pur e alcohol) weekends Alcohol Answer Date Recorded How often do you have a drink containing alcohol ? 1 10/01/2024 How many drinks containing a lcohol do you have on a typical day when you are drinking? 2 10/01/2024 How often do you have six or more drinks on one occasion? 0 10/01/2024 Depression Answer Date Recorded Patient Health Questionnaire-9 [...] EDT Travel History Travel Start Travel End [facility] 09/04/2024 09/10/2024 documented as of this encounter Plan of Treatment Upcoming Encounters Date Type Department Care Team (Late st Contact Info) Description 11/14/2024 9:30 AM EDT Clinical Support [facility] MEDICINE [address] [place] [address] Viridiana Hernández RN [address] [place] [address] documented as of this encounter Visit Diagnoses Not on filedocumented in this encounter Additional Health Concerns Assessment Noted Time PHQ-9 Depression Total Score: 4 02/13/20 24 9:45 AM EDT documented as of this encounter Care Teams Transportation Agent Relationship Specialty Start Date End Date Marjan Sams MD [address] [place] [address] PCP - General Family Medicine 06/04/18 Esteban Nice MD [address] [place] [address] Rheumatology 05/21/24 Ashley Chanel OD [address] [place] [phone] Optometry 05/21/24 documented as of this encounter
--- OUTSIDE RECORDS SUMMARY | 2024-10-03 13:02 | XMS_ITS | Encounter Summary ---
Author Organization [employer] Address [address] [facility] 7t [place] [address] Care Team Providers Care Account Installation Specialist Name Role Phone Marjan Sams MD Primary Care Provider [phone] Esteban Nice MD Unavailable Ashley Chanel OD Unavailable [phone] Reason for Visit * Reason Onset Date Comments Lung Screening referral 10/02/2024 Encounter Details Date Type Department Care Team (Late st Contact Info) Description 10/02/2024 Telephone [facility] MEDICINE [address] [place] [address] Marjan Sams MD [address] [place] [address] Lung Screening referral Social History Tobacco Use Types Packs/Day Years [...] EDT Travel History Travel Start Travel End [facility] 09/04/2024 09/10/2024 documented as of this encounter Miscellaneous Notes * Telephone Encounter - Awa Martinez MA - 10/02/2024 3:47 PM EDT I faxed the Lung screening referral to [facility]. documented in this encounter Plan of Treatment Upcoming Encounters Date Type Department Care Team (Late st Contact Info) Description 11/14/2024 9:30 AM EDT Clinical Support [facility] MEDICINE [address] [place] [address] Viridiana Hernández, KIMBERLY [address] [place], [place] [phone] documented as of this encounter Visit Diagnoses Not on filedocumented in this encounter Additional Health Concerns Assessment Noted Time PHQ-9 Depression Total Score: 4 02/13/20 24 9:45 AM EDT documented as of this encounter Care Teams Account Installation Specialist Relationship Specialty Start Date End Date Marjan Sams MD [address] [place] [address] PCP - General Family Medicine 06/04/18 Esteban Nice MD [address] [place] [address] Rheumatology 05/21/24 Ashley Chanel OD [address] [place] [address] Optometry 05/21/24 documented as of this encounter
--- OUTSIDE RECORDS SUMMARY | 2024-10-03 13:02 | XMS_ITS | Encounter Summary ---
Author Organization [employer] Address [address] [facility] 7t [place] [address] Care Team Providers Care Adjuster Electrical Contacts Name Role Phone Marjan Sams MD Primary Care Provider [phone]- [phone] Esteban Nice MD Unavailable Ashley Chanel OD Unavailable [phone] Reason for Visit * Reason Comments Care Coordination CHW outreach for SDO H PT-1 and food needs-referral completed Encounter Details Date Type Department Care Team (Latest Contact Info) Description 10/03/2024 Patient Outreach [facility] [address] [place] [id number] Marjan Sams MD [address] [place] [address] Care Coordination (CHW outreach for SDOH PT-1 and food needs-referral completed /) Social History Tobacco Use Types Packs/Day Years [...] EDT Travel History Travel Start Travel End [facility] 09/04/2024 09/10/2024 documented as of this encounter Progress Notes * Sae Kwon - 10/03/2024 10:16 AM EDT CHW Sae Kwon, placed outbound call to patient for assistance with SDOH as a referral was received by the provider. Patient's name and were confirmed. Patient screened positive for the following SDOH food insecurities. Patient states family in on SNAP program at this time. CHW referral patient to the local list of pantries in the area for help. PT-1 requested was send out in behalf of patient for futures appt. Patient verbalizes understanding, and able to agree with plan to follow up.Patient educated on extended clinic hours on Mondays through Wednesdays, and Walk-In Urgent Care Located in [facility] of [facility]. Patient provided with after-hours line for [facility], , which offer night time triage service and option to transfer to senior solutions consultant provider if needed. documented in this encounter Plan of Treatment Upcoming Encounters Date Type Department Care Team (Late st Contact Info) Description 11/14/2024 9:30 AM EDT Clinical Support [facility] [address] [place] [address] Viridiana Hernández RN [address] [place] [address] documented as of this encounter Visit Diagnoses Not on filedocumented in this encounter Additional Health Concerns Assessment Noted Time PHQ-9 Depression Total Score: 4 02/13/20 24 9:45 AM EDT documented as of this encounter Care Teams Adjuster Electrical Contacts Relationship Specialty Start Date End Date Marjan Sams MD [address] [place] [address] PCP - General Family Medicine 06/04/18 Esteban Nice MD [address] [place] [address] [place] [phone] Rheumatology 05/21/24 Ashley Chanel OD [address] [place] [address] Optometry 05/21/24 documented as of this encounter
--- OUTSIDE RECORDS SUMMARY | 2024-10-03 13:02 | XMS_ITS | Encounter Summary ---
Author Organization [employer] Address [address] [facility] 7t [place] [address] Care Team Providers Care Public Policy Analyst Name Role Phone Marjan Sams MD Primary Care Provider [phone] Esteban Nice MD Unavailable Ashley Chanel OD Unavailable Encounter Details Date Type Department Care Team (Late st Contact Info) Description 10/01/2024 Telephone [facility] [address] [place] [phone] Marjan Sams MD [address] [place] [address] Social History Tobacco Use Types Packs/Day Years [...] EDT Travel History Travel Start Travel End [facility] 09/04/2024 09/10/2024 documented as of this encounter Miscellaneous Notes * Telephone Encounter - Marjan Sams MD - 10/01/2024 10:50 AM EDT Can you please let me know status of ortho referral when you get a chance. Thank you. documented in this encounter Plan of Treatment Upcoming Encounters Date Type Department Care Team (Late st Contact Info) Description 11/14/2024 9:30 AM EDT Clinical Support [facility] [address] [place], [place] [phone] Viridiana Hernández, KIMBERLY [address] [place], [place] [phone] documented as of this encounter Visit Diagnoses Not on filedocumented in this encounter Additional Health Concerns Assessment Noted Time PHQ-9 Depression Total Score: 4 02/13/20 24 9:45 AM EDT documented as of this encounter Care Teams Public Policy Analyst Relationship Specialty Start Date End Date Marjan Sams MD [address] [place] [address] PCP - General Family Medicine 06/04/18 Esteban Nice MD [address] [place] [address] Rheumatology 05/21/24 Ashley Chanel OD [address] [place] [address] Optometry 05/21/24 documented as of this encounter
--- OUTSIDE RECORDS SUMMARY | 2024-10-03 13:02 | XMS_ITS | Encounter Summary ---
Author Organization [employer] Address [address] [facility] 7t [place] [address] Care Team Providers Care [employer] Name Role Phone Marjan Sams MD Primary Care Provider [phone] Esteban Nice MD Unavailable Ashley Chanel OD Unavailable [phone] Reason for Visit * Reason Onset Date Comments Med Refill 02/19/2023 Encounter Details Date Type Department Care Team (Late st Contact Info) Description 02/19/2023 Telephone [facility] [address] [place] [phone] Marjan Sams MD [address] [place] [address] Med Refill Social History Tobacco Use Types [...] Description 11/14/2024 9:30 AM EDT Clinical Support [facility] [address] [place] [address] Viridiana Hernández, KIMBERLY [address] [place] [address] documented as of this encounter Visit Diagnoses Not on filedocumented in this encounter Additional Health Concerns Assessment Noted Time PHQ-9 Depression Total Score: 0 11/04/19 23 10:28 AM EDT documented as of this encounter Care Teams [employer] Relationship Specialty Start Date End Date Marjan Sams MD [address] [place] [address] PCP - General Family Medicine 06/04/18 Esteban Nice MD [address] [place] [address] [place] [address] Rheumatology 05/21/24 Ashley Chanel OD [address] [place] [address] Optometry 05/21/24 documented as of this encounter
--- OUTSIDE RECORDS SUMMARY | 2024-10-03 13:02 | XMS_ITS | Clinical Summary ---
Author Organization [address] [facility] Address [address] [place] [address] Phone Care Team Providers Care Biofuels Operations Manager Name Role Phone Francisca Lyfer Kalyan GARCIA Primary Care Provider [phone] Social History Tobacco Use Types Packs/Day Years Used Date Smoking Tobacco: Never Assessed Comments Unknown Sex and Gender Information Value Date Recorded Sex Assigned at Not on file Legal Sex Female 7:08 AM EDT Gender Identity Not on file Sexual Orientation Not on file Plan of Treatment Upcoming Encounters Date Type Department Care Team (Late st Contact Info) Description 10/07/2024 9:15 AM EDT Office Visit Orthopedic Surgery - [place] [phone] [phone] Alban Koehler, DPM [address] [address] Health Maintenance Due Date Last Done Comments Breast Cancer Screening 1966 DTaP,Tdap,and Td Vaccines (1 - Tdap) 1985 Hepatitis B Vaccines (1 of 3 - 19+ 3-dose series) 1985 Cervical Cancer Screening: P ap Smear 1987 Pneumococcal Vaccine: 50+ Ye ars (1 of 1 - PCV) 2016 Zoster Vaccines (1 of 2) 2016 COVID-19 Vaccine (2023-2 5 season) 2024 Colorectal Cancer Screening: Colonoscopy 10/02/2024 Depression Screening 10/02/2024 HIV Screening 10/02/2024 Hepatitis C Screening 10/02/2024 Medicare Annual Wellness Visit 10/02/2024 Social Influencers of Health Screening 10/02/2024 Influenza Vaccine (Season Ended) 2025 HIB Vaccines Aged Out No longer eligi ble based on patient's age to complete this topic HPV Vaccines Aged Out No longer eligi ble based on patient's age to complete this topic Hepatitis A Vaccines Aged Out No long er eligible based on patient's age to complete this topic IPV Vaccines Aged Out No longer eligi ble based on patient's age to complete this topic MMR Vaccines Aged Out No longer eligi ble based on patient's age to complete this topic Meningococcal ACWY Vaccine Aged Out N o longer eligible based on patient's age to complete this topic Meningococcal B Vaccine Aged Out No l onger eligible based on patient's age to complete this topic Pneumococcal Vaccine: Pediat rics (0 to 5 Years) and At-Risk Patients (6 to 64 Years) Aged Out No longer eligible b ased on patient's age to complete this topic RSV Immunization Patients Un navin 20 months Aged Out No longer eligible b ased on patient's age to complete this topic Varicella Vaccines Aged Out No longer eligible based on patient's age to complete this topic Insurance [employer] MEDICARE ADVANTAGE Care Teams Biofuels Operations Manager Relationship Specialty Start Date End Date Elizabeth Ly DO [address] [place] [address] PCP - General Family Medicine 10/02/24
--- OUTSIDE RECORDS SUMMARY | 2024-10-03 13:02 | XMS_ITS | Encounter Summary ---
Author Organization [employer] Address [address] [facility] 7t [place] [address] Care Team Providers Care Fws Faculty Assistant Name Role Phone Marjan Sams MD Primary Care Provider [phone]- [phone] Esteban Nice MD Unavailable Ashley Chanel OD Unavailable Encounter Details Date Type Department Care Team (Late st Contact Info) Description 03/22/2023 Abstract [facility] [address] [place] [address] Marjan Sams MD [address] [place] [address] Preventative health care; Osteoarthritis of knee, unspecified [...] Upcoming Encounters Date Type Department Care Team ([facility] st Contact Info) Description 11/14/2024 9:30 AM EDT Clinical Support [facility] [address] [place] [address] Viridiana Hernández RN [address] [place] [address] documented as of this encounter Visit Diagnoses Diagnosis Preventative health care Routine general medical examination at a health care facility Osteoarthritis of knee, unspecified laterality, unspecified osteoarthritis type documented in this encounter Additional Health Concerns Assessment Noted Time PHQ-9 Depression Total Score: 0 11/04/19 23 10:28 AM EDT documented as of this encounter Care Teams Fws Faculty Assistant Relationship Specialty Start Date End Date Marjan Sams MD [address] [place] [address] PCP - General Family Medicine 06/04/18 Esteban Nice MD [address] [place] [address] Rheumatology 05/21/24 Ashley Chanel OD [address] [place] [address] Optometry 05/21/24 documented as of this encounter
--- OUTSIDE RECORDS SUMMARY | 2024-10-03 13:02 | XMS_ITS | Encounter Summary ---
Author Organization [employer] Address [address] [facility] [address] [place] [address] Care Team Providers Care Regional Sales Representative Name Role Phone Marjan Sams MD Primary Care Provider [phone] Esteban Nice MD Unavailable Ashley Chanel OD Unavailable [phone] Reason for Referral * Imaging (Routine) - Authorized Specialty Diagnoses / Procedures Referred By Contac jose Referred To Contact Radiology Diagnoses Closed fracture of left foot with routine healing, subsequent encounter Postmenopausal Procedures BD DEXA Axial Marjan Sams MD [address] [place] [phone] Phone: tel: fax: [address] Phone: tel: fax: Referral ID Status Reason Start Date Expiration Date V isits Requested Visits Authorized [id number] Authorized 10/01/2024 10/01/2025 1 1 Reason for Visit * Reason Comments Annual Exam Encounter Details Date Type Department Care Team (Late st Contact Info) Description 10/01/2024 10:30 AM EDT Office Visit [facility] [address] [place] [id number] Marjan Sams MD [address] [place] [address] [phone] Systemic lupus erythematosus, unspecified SLE type, unspecified organ involvement status (CMS/[facility]) (Primary Dx); Obstructive sleep apnea; Chronic obstructive pulmonary disease, unspecified COPD type (CMS/HCC); Primary hypertension; Anemia, unspecified type; Dyslipidemia; Chronic pain of left ankle; Postmenopausal; Tobacco dependence syndrome; History of DVT (deep vein thrombosis); Overweight; Dietary counseling; Exercise counseling; Encounter for screening for malignant neoplasm of colon; Other specified health status Social History Tobacco Use Types Packs/Day Years Used Date Smoking Tobacco: Every Day Cigarettes Passive Smoke Exposure: Current Smokeless Tobacco: Never Tobacco Cessation:Ready to Q [...] EDT Travel History Travel Start Travel End [facility] 09/04/2024 09/10/2024 documented as of this encounter Last Filed Vital Signs Vital Sign Reading Time Taken Comments Blood Pressure 140/90 10/01/2024 9:53 AM EDT no chest pain, palpitations or SOB Pulse 65 10/01/2024 9:53 AM EDT Temperature 35.6 ??C (96 ??F) 10/01/2024 9:5 3 AM EDT Respiratory Rate 20 10/01/2024 9:53 AM EDT Oxygen Saturation 95% 10/01/2024 9:5 3 AM EDT Inhaled Oxygen Concentration - - Weight 69.8 kg (153 lb 12.8 oz) 10/01/2024 9:53 AM EDT Height 157.5 cm (5' 2 ) 10/01/2024 9:53 AM EDT Body Mass Index 28.13 10/01/2024 9:53 AM EDT documented in this encounter Progress Notes * Marjan Sams MD - 10/01/2024 10:30 AM EDT Bin Munoz is a 59 y.o. female with past medical history of dyslipidemia, nicotine dependence, DARIN, hypertension, COPD, osteoarthritis of the knee, and Lupus who presents to the office today for chronic medical conditions and comprehensive annual evaluation. Pt reports old fracture of her left foot. 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 She was referred to orthopedics on 09/03/24 but has not heard yet. We will ask our medical communication specialist the status of that. Although she's feeling better, I would still like her to go. She also reports she has an appointment with her palm gatherer this week. Pt agrees to lung cancer screening today. Social History Tobacco: Encouraged cessation. Ordered LDCT. Drugs: none Alcohol: No Suicide/Depression: The patient denies any present symptoms of depression or anxiety. Review of Systems Constitutional: Negative for fatigue, fever and unexpected weight change. Respiratory: Negative for cough. Cardiovascular: Negative for chest pain. Gastrointestinal: Negative for abdominal pain. Genitourinary: Negative for difficulty urinating. Current Outpatient Medications: albuterol 108 (90 Base) [...] severe pain., Disp: 56 tablet, Rfl: 0 No Known Allergies Past Medical History: Diagnosis Date COPD (chronic obstructive pulmonary disease) ([facility]) 10/02/2022 -Continue Breo started in hospital 07/2019 250 once a day -Continue albuterol via neb prn. -She is going great with cutting down on cigarettes from 25 per day to 5 per day as of 06/25/23 Dyslipidemia 11/24/2011 Lab Results Component Value Date CHOL 190 02/12/2024 TRIG 103 02/12/2024 TRIG 140 10/31/2022 HDL 43 02/12/2024 LDLCHOLCAL 127 (H) 02/12/2024 -continue lifestyle modification History of DVT (deep vein thrombosis) 06/25/2023 Diagnosed 05/2015 Risk factors include Lupus and tobacco -anticoagulated with coumadin several months. Discontinue via hematology -continue ASA Hypertension 11/24/2011 -Blood pressure is at goal -Continue lifestyle modifications -Continue current medications Obstructive sleep apnea 09/12/2022 Diagnosed in 2007. She was not tolerant of CPAP. 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, ++ dsDNA, low C3) -methotrexate caused oral ulcers, improved on CellCept -was on Benlysta infusions at some time (patient does not recall benefits or side effects) -on hydroxychloroquine 400 mg daily regularly + prn prednisone - symptomatically, patient is doing well with no features of ac Tobacco dependence syndrome 04/03/2012 -Cigg/day: 5 /day -Age started: 16 -Total years smokin -Pack year history: 40 Encouraged smoking cessation resources such as pharmacomtherapy, [facility] smoking cessation group, and [facility] pharmacy smoking cessation clinic Discussed USPSTF recommends annual lung cancer screening with low dose CT in people who meet the following criteria: -ages 50 to 80 years. -have a 20 pack-year smoking hist Past Surgical History: Procedure Laterality Date ABSCESS DRAINAGE Family History Problem Relation Name Age of Onset Breast cancer Mother Objective Visit Vitals BP (!) 140/90 (BP Location: Left arm, Patient Position: Sitting, BP Cuff Size: Adult) Comment: no chest pain, palpitations or SOB Pulse 65 Temp 96 ??F (35.6 ??C) (Temporal) Resp 20 Ht 5' 2 (1.575 m) Wt 153 lb 12.8 oz (69.8 kg) SpO2 95% BMI 28.13 kg/m?? Smoking Status Every Day BSA 1.75 m?? Physical Exam Constitutional: Appearance: Normal appearance. HENT: Head: Normocephalic. Right Ear: Tympanic membrane normal. Left Ear: Tympanic membrane normal. Mouth/Throat: Pharynx: Oropharynx is clear. Eyes: Pupils: Pupils are equal, round, and reactive to light. Cardiovascular: Rate and Rhythm: Normal rate and regular rhythm. Heart sounds: Normal heart sounds. Pulmonary: Effort: Pulmonary effort is normal. Breath sounds: Normal breath sounds. Abdominal: General: Abdomen is flat. Palpations: There is no mass. Tenderness: There is no abdominal tenderness. Musculoskeletal: General: Normal range of motion. Cervical back: Normal range of motion and neck supple. Lymphadenopathy: Cervical: No cervical adenopathy. Skin: General: Skin is warm and dry. Neurological: General: No focal deficit present. Mental Status: She is alert. Psychiatric: Behavior: Behavior normal. 59 y.o. female annual evaluation. 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 Rodriguez 04/15/24 Discussed the possibility of adding DMARDs such as Benlysta. Patientis not interested. Adjust hydroxychloroquine dose to 400 mg daily x5 days a week and 200 mg daily x2 days a week Labs before next visit in 6 -followed by [facility] Chanel note from 04/20/24 reviewed Obstructive sleep apnea Diagnosed in 2007. She was not tolerant of CPAP. COPD (chronic obstructive pulmonary disease) ([facility]) -Continue Breo started in hospital 07/2019 250 once a day -Continue albuterol via neb prn. -She is going great with cutting down on cigarettes from 25 per day to 5 per day as of 06/25/23 Hypertension -Blood pressure is above goal, will have pt monitor at home and call if persistently elevated 10/01/24 -Continue lifestyle modifications -Continue current medications Anemia Lab Results Component Value Date FERRITIN 220 02/13/2024 FERRITIN 254 (H) 02/12/2024 HGB 10.3 (L) 09/18/2024 HGB 12.3 04/11/2024 -ordered repeat labs 10/01/24 Relevant Orders CBC auto differential Ferritin TSH with Reflex to Free T4 Iron And Total Iron Binding Capacity Vitamin B12 (Cobalamin) and Folate Panel, Serum Dyslipidemia Lab Results Component Value Date CHOL 178 02/13/2024 CHOL 190 02/12/2024 TRIG 115 02/13/2024 TRIG 103 02/12/2024 TRIG 140 10/31/2022 HDL 41 02/13/2024 HDL 43 02/12/2024 LDLCHOLCAL 114 (H) 02/13/2024 LDLCHOLCAL 127 (H) 02/12/2024 -continue lifestyle modification Chronic pain of left ankle MRI 09/15/24 MR/MR ankle LT wo/w con [...] joint effusion. -referral to ortho placed 09/03/24 -encouraged to follow-up with orthopedics 10/01/24. Relevant Orders BD DEXA Axial Postmenopausal Final Menstrual Period: Symptoms: none Risk factors for osteoporosis: history of fracture, tobacco use , and postmenopausal -USPTF recommends DEXA be preformed on all women > 65 years and women younger than 65 who have gone through menopause and are at increased risk of an osteoporotic fracture, as estimated by clinical risk assessment. -Discussed with the patient all the options for osteoporosis prevention and advised: -Ca+D supplements 1200 mg po qd/800 MIU -Weight bearing exercises -Adequate protein intake -Supplements may include magnesium, omega-3 -DEXA done: ordered 10/01/24 Relevant Orders BD DEXA Axial Tobacco dependence syndrome -Cigg/day: 5 /day -Age started: 16 -Total years smokin -Pack year history: 41 Encouraged smoking cessation resources such as pharmacomtherapy, [facility] smoking cessation group, and [facility] pharmacy smoking cessation clinic Discussed USPSTF recommends annual lung cancer screening with low dose CT in people who meet the following criteria: -ages 50 to 80 years. -have a 20 pack-year smoking history. -currently smoke cigarettes or quit within the past 15 years. -LDCT: ordered 06/25/23, re-ordered 10/01/24 Encouraged cessation. History of DVT (deep vein thrombosis) Diagnosed 05/2015 Risk factors include Lupus and tobacco -anticoagulated with coumadin several months. Discontinue via hematology -continue ASA Overweight Discussed weight, diet, exercise with patient in relation to health conditions. Used motivational interviewing to illicit change talk and established initial goals with patient. Dietary counseling Dietary Recommendations: Fruits, vegetables, whole grains, protein foods, and fat-free or low-fat dairy products are healthychoices. Eat different types of protein foods in your diet. This can include seafood, lean meats, poultry, beans, peas, lentils, nuts, seeds, soy products, and eggs. Limit foods and beverages higher in added sugars, saturated fat, and sodium. Exercise counseling Exercise Recommendations: At least 150 minutes of moderate-intensity physical activity per week, or an equivalent combinationof moderate- and vigorous-intensity activity. Encounter for screening for malignant neoplasm of colon Done 2016, due in 2026 Other specified health status -next comprehensive annual evaluation due after 10/01/25 -eye care facilitated by [facility] in [place] -dental home is [facility] -health care proxy: pt reports has at home 06/25/23 Annual Evaluation -Normal growth and development. -Anticipatory guidance discussed. -Preventative care / harm reduction discussed. Follow up in about 6 months (around 04/02/2025), or anemia, for anemia and GI. I, Thais Rizvi, am serving as a scribe to document services personally performed by Dr. Garcia, based on the patient's response to questions by provider and providers statements to me. documented in this encounter Miscellaneous Notes * Assessment & Plan Note - Thais Rizvi - 10/01/2024 3:16 PM EDTAssociated Problem(s): Postmenopausal Final Menstrual Period: Symptoms: none Risk factors for osteoporosis: history of fracture, tobacco use , and postmenopausal -USPTF recommends DEXA be preformed on all women > 65 years and women younger than 65 who have gone through menopause and are at increased risk of an osteoporotic fracture, as estimated by clinical risk assessment. -Discussed with the patient all the options for osteoporosis prevention and advised: -Ca+D supplements 1200 mg po qd/800 MIU -Weight bearing exercises -Adequate protein intake -Supplements may include magnesium, omega-3 -DEXA done: ordered 10/01/24 * Assessment & Plan Note - Thais Rizvi - 10/01/2024 3:14 PM EDTAssociated Problem(s): Dietary counseling Dietary Recommendations: Fruits, vegetables, whole grains, protein foods, and fat-free or low-fat dairy products are healthychoices. Eat different types of protein foods in your diet. This can include seafood, lean meats, poultry, beans, peas, lentils, nuts, seeds, soy products, and eggs. Limit foods and beverages higher in added sugars, saturated fat, and sodium. * Assessment & Plan Note - Thais Rizvi - 10/01/2024 3:14 PM EDTAssociated Problem(s): Exercise counseling Exercise Recommendations: At least 150 minutes of moderate-intensity physical activity per week, or an equivalent combinationof moderate- and vigorous-intensity activity. * Assessment & Plan Note - Thais Rizvi - 10/01/2024 3:14 PM EDTAssociated Problem(s): Overweight Discussed weight, diet, exercise with patient in relation to health conditions. Used motivational interviewing to illicit change talk and established initial goals with patient. * Assessment & Plan Note - Thais Rizvi - 10/01/2024 3:12 PM EDTAssociated Problem(s): Chronic pain of left ankle MRI 09/15/24 MR/MR ankle LT wo/w con [...] joint effusion. -referral to ortho placed 09/03/24 -encouraged to follow-up with orthopedics 10/01/24. * Assessment & Plan Note - Thais Rizvi - 10/01/2024 2:59 PM EDTAssociated Problem(s): Dyslipidemia Lab Results Component Value Date CHOL 178 02/13/2024 CHOL 190 02/12/2024 TRIG 115 02/13/2024 TRIG 103 02/12/2024 TRIG 140 10/31/2022 HDL 41 02/13/2024 HDL 43 02/12/2024 LDLCHOLCAL 114 (H) 02/13/2024 LDLCHOLCAL 127 (H) 02/12/2024 -continue lifestyle modification * Assessment & Plan Note - Thais Rizvi - 10/01/2024 2:58 PM EDTAssociated Problem(s): Encounter for screening for malignant neoplasm of colon Done 2017, due in 2026 * Assessment & Plan Note - Thais Rizvi - 10/01/2024 2:58 PM EDTAssociated Problem(s): History of DVT (deep vein thrombosis) Diagnosed 05/2015 Risk factors include Lupus and tobacco -anticoagulated with coumadin several months. 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 Rodriguez 04/15/24 Discussed the possibility of adding DMARDs such as Benlysta. Patientis not interested. Adjust hydroxychloroquine dose to 400 mg daily x5 days a week and 200 mg daily x2 days a week Labs before next visit in 6 -followed by [facility] Dr. Ashley Chanel note from 04/20/24 reviewed * Assessment & Plan Note - Thais Rizvi - 10/01/2024 2:57 PM EDTAssociated Problem(s): Tobacco dependence syndrome -Cigg/day: 5 /day -Age started: 16 -Total years smokin -Pack year history: 41 Encouraged smoking cessation resources such as pharmacomtherapy, [facility] smoking cessation group, and [facility] pharmacy smoking cessation clinic Discussed USPSTF recommends annual lung cancer screening with low dose CT in people who meet the following criteria: -ages 50 to 80 years. -have a 20 pack-year smoking history. -currently smoke cigarettes or quit within the past 15 years. -LDCT: ordered 06/25/23, re-ordered 10/01/24 Encouraged cessation. * Assessment & Plan Note - Thais Rizvi - 10/01/2024 2:56 PM EDTAssociated Problem(s): Anemia Lab Results Component Value Date FERRITIN 220 02/13/2024 FERRITIN 254 (H) 02/12/2024 HGB 10.3 (L) 09/18/2024 HGB 12.3 04/11/2024 -ordered repeat labs 10/01/24 * Assessment & Plan Note - Thais Rizvi - 10/01/2024 2:56 PM EDTAssociated Problem(s): Hypertension -Blood pressure is above goal, will have pt monitor at home and call if persistently elevated 10/01/24 -Continue lifestyle modifications -Continue current medications * Assessment & Plan Note - Thais Rizvi - 10/01/2024 2:55 PM EDTAssociated Problem(s): COPD (chronic obstructive pulmonary disease) ([facility]) -Continue Breo started in hospital 07/2019 250 once a day -Continue albuterol via neb prn. -She is going great with cutting down on cigarettes from 25 per day to 5 per day as of 06/25/23 * Assessment & Plan Note - Thais Rizvi - 10/01/2024 2:55 PM EDTAssociated Problem(s): Obstructive sleep apnea Diagnosed in 2007. She was not tolerant of CPAP. documented in this encounter Plan of Treatment Upcoming Encounters Date Type Department Care Team (Late st Contact Info) Description 11/14/2024 9:30 AM EDT Clinical Support [facility] [address] [place] [phone] Viridiana Hernández, KIMBERLY [address] [place], [place] [id number] Scheduled Orders Name Type Priority Associated Diagnoses Orde r Schedule CBC auto differential Lab Routine Anemia, unspecified type Expected: 10/01/2024 (Approximate), Expires: 10/01/2025 Ferritin Lab Routine Anemia, unspecified type Expected: 10/01/2024, Expires: 10/01/2025 TSH with Reflex to Free T4 Lab Routine Anemia, unspecified type Expected: 10/01/2024 (Approximate), Expires: 10/01/2025 Iron And Total Iron Binding Capacity Lab Routine Anemia, unspecified type Expected: 10/01/2024, Expires: 10/01/2025 Vitamin B12 (Cobalamin) and Folate Panel, Serum Lab Routine Anemia, unspecified type Expected: 10/01/2024, Expires: 10/01/2025 BD DEXA Axial Imaging Routine Chronic pain of left ankle Postmenopausal Expected: 10/01/2024, Expires: 10/01/2025 documented as of this encounter Procedures Procedure Name Priority Date/Time Associated Diagnosis Comments MAMMOGRAPHY Routine 03/25/2024 documented in this encounter Results * Mammography (03/25/2024) HM Mammogram BIRADS 2 Normal, Abnormal, BIRADS 1 , BIRADS 2 Anatomical Region Laterality Modality Other us Historical Provider HEALTH MAINTENANCE Final Result documented in this encounter Visit Diagnoses Diagnosis Systemic lupus erythematosus, unspecified SLE type, unspecified organ involvement status (CMS/HCC)- Primary Obstructive sleep apnea Obstructive sleep apnea (adult) (pediatric) Chronic obstructive pulmonary disease, unspecified COPD type (CMS/HCC) Primary hypertension Unspecified essential hypertension Anemia, unspecified type Dyslipidemia Other and unspecified hyperlipidemia Chronic pain of left ankle Postmenopausal Asymptomatic postmenopausal status (age-related) (natural) Tobacco dependence syndrome Tobacco use disorder History of DVT (deep vein thrombosis) Overweight Dietary counseling Dietary surveillance and counseling Exercise counseling Encounter for screening for malignant neoplasm of colon Other specified health status documented in this encounter Additional Health Concerns Assessment Noted Time PHQ-9 Depression Total Score: 4 02/13/20 24 9:45 AM EDT documented as of this encounter Care Teams Regional Sales Representative Relationship Specialty Start Date End Date Marjan Sams MD [address] [place] [address] PCP - General Family Medicine 06/04/18 Esteban Nice MD [address] [place] [id number] Rheumatology 05/21/24 Ashley Chanel OD [address] [place] [address] Optometry 05/21/24 documented as of this encounter
--- OUTSIDE RECORDS SUMMARY | 2024-10-03 13:02 | XMS_ITS | Encounter Summary ---
Author Organization [employer] Address [address] [facility] [address] [place] [address] Care Team Providers Care Industrial Waste Inspector Name Role Phone Marjan Sams MD Primary Care Provider [phone] Esteban Nice MD Unavailable Ashley Chanel OD Unavailable [phone] Reason for Visit * Reason Onset Date Comments PT-1 10/03/2024 Encounter Details Date Type Department Care Team (Late st Contact Info) Description 10/03/[address] [facility] [address] [place] [address] Marjan Sams MD [address] [place] [address] PT-1 Social History Tobacco Use Types Packs/Day Years [...] EDT Travel History Travel Start Travel End [facility] 09/04/2024 09/10/2024 documented as of this encounter Miscellaneous Notes * Telephone Encounter - Bebeto Cook - 10/03/2024 9:50 AM EDT Patient calling requesting PT1 Home Address verified: Y/N: Yes Provider name or facility name: Sumit Wooten DPM [address] [address], [place], [place] Escort needed: Y/N: No Do you have a wheelchair: Y/N: No If yes- Manual or electric: Visits: (2) ( x monthly,) documented in this encounter Plan of Treatment Upcoming Encounters Date Type Department Care Team (Late st Contact Info) Description 11/14/2024 9:30 AM EDT Clinical Support [facility] [address] [place] [address] Viridiana Hernández, KIMBERLY [address] [place] [phone] documented as of this encounter Visit Diagnoses Not on filedocumented in this encounter Additional Health Concerns Assessment Noted Time PHQ-9 Depression Total Score: 4 02/13/20 24 9:45 AM EDT documented as of this encounter Care Teams Industrial Waste Inspector Relationship Specialty Start Date End Date Marjan Sams MD [address] [place] [address] PCP - General Family Medicine 06/04/18 Esteban Nice MD [address] [place] [id number] Rheumatology 05/21/24 Ashley Chanel OD [address] [place] [phone] Optometry 05/21/24 documented as of this encounter
--- OUTSIDE RECORDS SUMMARY | 2024-10-03 13:02 | XMS_ITS | Encounter Summary ---
Author Organization [employer] Address [address] [facility] 7t [place] [address] Care Team Providers Care Loan Auditor Name Role Phone Marjan Sams MD Primary Care Provider [phone] Esteban Nice MD Unavailable Ashley Chanel OD Unavailable [phone] Reason for Visit * Reason Onset Date Comments [employer] Set-up 01/23/2024 Encounter Details Date Type Department Care Team (Late st Contact Info) Description 01/23/2024 Telephone [facility] [address] [place] [address] Marjan Sams MD [address] [place] [address] [employer] Set-up Social History Tobacco Use Types [...] EDT Travel History Travel Start Travel End [facility] 09/04/2024 09/10/2024 documented as of this encounter Miscellaneous Notes * Telephone Encounter - Kadeem Martinez - 01/23/2024 10:00 AM EDT Tc from patient calling to request a uber set-up for 01/29 appt telegraphic typewriter operator chief did confirm address and call back number documented in this encounter Plan of Treatment Upcoming Encounters Date Type Department Care Team (Late st Contact Info) Description 11/14/2024 9:30 AM EDT Clinical Support [facility] [address] [place] [phone] Viridiana Hernández RN [address] [place] [address] documented as of this encounter Visit Diagnoses Not on filedocumented in this encounter Additional Health Concerns Assessment Noted Time PHQ-9 Depression Total Score: 0 11/04/19 23 10:28 AM EDT documented as of this encounter Care Teams Loan Auditor Relationship Specialty Start Date End Date Marjan Sams MD [address] [place] [address] PCP - General Family Medicine 06/04/18 Esteban Nice MD [address] [place] [address] Rheumatology 05/21/24 Ashley Chanel OD [address] [place] [address] Optometry 05/21/24 documented as of this encounter
--- OUTSIDE RECORDS SUMMARY | 2024-10-03 13:02 | XMS_ITS | Encounter Summary ---
Author Organization [employer] Address [address] [facility] 7t [place] [address] Care Team Providers Care Management Internship Name Role Phone Marjan Sams MD Primary Care Provider [phone] Esteban Nice MD Unavailable Ashley Chanel OD Unavailable Reason for Visit * Reason Onset Date Comments Nurse Triage 09/18/2023 Encounter Details Date Type Department Care Team (Late st Contact Info) Description 09/18/2023 Telephone [facility] [address] [place] [address] Marjan Sams MD [address] [place] [address] Nurse Triage Social History Tobacco Use Types [...] EDT Travel History Travel Start Travel End [facility] 09/04/2024 09/10/2024 documented as of [...] Description 11/14/2024 9:30 AM EDT Clinical Support [facility] [address] [place] [address] Viridiana Hernández RN [address] [place] [address] documented as of this encounter Visit Diagnoses Not on filedocumented in this encounter Additional Health Concerns Assessment Noted Time PHQ-9 Depression Total Score: 0 11/04/19 23 10:28 AM EDT documented as of this encounter Care Teams Management Internship Relationship Specialty Start Date End Date Marjan Sams MD [address] [place] [address] PCP - General Family Medicine 06/04/18 Esteban Nice MD [address] [place] [address] Rheumatology 05/21/24 Ashley Chanel OD [address] [place] [address] Optometry 05/21/24 documented as of this encounter
--- OUTSIDE RECORDS SUMMARY | 2024-10-03 13:02 | XMS_ITS | Encounter Summary ---
Author Organization [employer] Address [address] [facility] 7t [place] [address] Care Team Providers Care Healthcare Applications Analyst Name Role Phone Marjan Sams MD Primary Care Provider [phone] Esteban Nice MD Unavailable Ashley Chanel OD Unavailable [phone] Reason for Visit * Reason Comments Med Refill Encounter Details Date Type Department Care Team (Late st Contact Info) Description 10/19/2023 Refill [facility] [address] [place] [address] Lluvia Mendoza MD [address] [place] [address] History of DVT (deep vein thrombosis) Social [...] EDT Travel History Travel Start Travel End [facility] 09/04/2024 09/10/2024 documented as of this encounter Plan of Treatment Upcoming Encounters Date Type Department Care Team (Late st Contact Info) Description 11/14/2024 9:30 AM EDT Clinical Support [facility] [address] [place] [address] Viridiana Hernández RN [address] [place] [address] documented as of this encounter Visit Diagnoses Diagnosis History of DVT (deep vein thrombosis) documented in this encounter Additional Health Concerns Assessment Noted Time PHQ-9 Depression Total Score: 0 11/04/19 23 10:28 AM EDT documented as of this encounter Care Teams Healthcare Applications Analyst Relationship Specialty Start Date End Date Marjan Sams MD [address] [place] [address] PCP - General Family Medicine 06/04/18 Esteban Nice MD [address] [place] [address] [place] [address] Rheumatology 05/21/24 Ashley Chanel OD [address] [place] [address] Optometry 05/21/24 documented as of this encounter
--- OUTSIDE RECORDS SUMMARY | 2024-10-03 13:02 | XMS_ITS | Encounter Summary ---
Author Organization [employer] Address [address] [facility] 7t [place] [address] Care Team Providers Care Medical File Clerk Name Role Phone Marjan Sams MD Primary Care Provider [phone] Esteban Nice MD Unavailable Ashley Chanel OD Unavailable [phone] Reason for Visit * Reason Onset Date Comments Med Refill 01/19/2023 Encounter Details Date Type Department Care Team (Late st Contact Info) Description 01/19/2023 Telephone [facility] [address] [place] [phone] Marjan Sams MD [address] [place] [address] Med Refill Social History Tobacco Use Types [...] (Percocet) 5-325 MG tablet Please sent to [facility]/pharmacy #[id number] - [place], [place] - [address] [facility] documented in this encounter Plan of Treatment Upcoming Encounters Date Type Department Care Team (Late st Contact Info) Description 11/14/2024 9:30 AM EDT Clinical Support [facility] [address] [place] [address] Viridiana Hernández RN [address] [place] [address] documented as of this encounter Visit Diagnoses Not on filedocumented in this encounter Additional Health Concerns Assessment Noted Time PHQ-9 Depression Total Score: 0 11/04/19 23 10:28 AM EDT documented as of this encounter Care Teams Medical File Clerk Relationship Specialty Start Date End Date Marjan Sams MD [address] [place] [address] PCP - General Family Medicine 06/04/18 Esteban Nice MD [address] [place] [address] [place] [address] Rheumatology 05/21/24 Ashley Chanel OD [address] [place] [address] Optometry 05/21/24 documented as of this encounter
--- OUTSIDE RECORDS SUMMARY | 2024-10-03 13:03 | XMS_ITS | Clinical Summary ---
Author Organization [employer] Address [address] [facility] [address] [place] [address] Care Team Providers Care Railroader Name Role Phone Marjan Sams MD Primary Care Provider [phone] Esteban Nice MD Unavailable Ashley Chanel OD Unavailable [phone] Allergies No known active allergies Medications [...] per week. 1 kit 08/20/19 25 Active gabapentin (Neurontin) 300 MG capsule Take 1 capsule (300 mg) by mouth at bedtime. 30 capsule 3 08/29/19 25 2025 Active oxyCODONE-acet aminophen (Percocet) 5-325 MG tabletIndicati ons:Arthritis of both knees Take 1 tablet by mouth every 12 (twelve) hours if needed for severe pain. 56 tablet 09/19/19 25 Active oxyCODONE-acet aminophen (Percocet) 5-325 MG tabletIndicati ons:Arthritis of both knees Take 1 tablet by mouth every 12 (twelve) hours if needed for severe pain. 56 tablet 08/21/19 25 2024 Discontinued(R eorder (will not trigger notification to Pharmacy)) Active Problems Patient Care Coordination No te Formatting of this note migh t be different from the original. C3/CM Millie Whiteside RN Problem Noted Date Diagnosed Date Breast screening 10/01/2024 Overview (10/01/2024): 03/25/24 BIRADS- 2 -Calcifications in the 12:00 anterior right breast are unchanged over 2 years and hence benign. Continue annual screenings. Encounter for screening for malignant neoplasm o f colon 10/01/2024 Overview (10/01/2024): Done 2016, due in 2026 Assessment & Plan (10/01/2024 2:59 PM EDT): Done 2016, due in 2026 Closed fracture of left foot with routine healin g 10/01/2024 Postmenopausal 10/01/2024 Overview (10/01/2024): Final Menstrual Period: Symptoms: none Risk factors [...] include magnesium, omega-3 -DEXA done: ordered 10/01/24 Assessment & Plan (10/01/2024 3:16 PM EDT): Final Menstrual Period: Symptoms: none Risk factors [...] include magnesium, omega-3 -DEXA done: ordered 10/01/24 Overweight 10/01/2024 Overview (10/01/2024): Discussed weight, diet, exercise with patient in relation to health conditions. Used motivational interviewing to illicit change talk and established initial goals with patient. Assessment & Plan (10/01/2024 3:14 PM EDT): Discussed weight, diet, exercise with patient in relation to health conditions. Used motivational interviewing to illicit change talk and established initial goals with patient. Dietary counseling 10/01/2024 Assessment & Plan (10/01/2024 3:14 PM EDT): Dietary Recommendations: Fruits, vegetables, whole grains, protein foods, and fat-free or low-fat dairy products are healthy choices. Eat different types of protein foods in your diet. This can include seafood, lean meats, poultry, beans, peas, lentils, nuts, seeds, soy products, and eggs. Limit foods and beverages higher in added sugars, saturated fat, and sodium. Exercise counseling 10/01/2024 Assessment & Plan (10/01/2024 3:14 PM EDT): Exercise Recommendations: At least 150 minutes of moderate-intensity physical activity per week, or an equivalent combination of moderate- and vigorous-intensity activity. Chronic pain of left ankle 09/16/2024 Overview (10/01/2024): MRI 09/15/24 MR/MR ankle LT wo/w con [...] 09/03/24 -encouraged to follow-up with orthopedics 10/01/24. Assessment & Plan (10/01/2024 3:12 PM EDT): MRI 09/15/24 MR/MR ankle LT wo/w con [...] 09/03/24 -encouraged to follow-up with orthopedics 10/01/24. Long-term current use of opiate analgesic 2024 Current chronic use of systemic steroids 024 Anemia 02/13/2024 Overview (10/01/2024): Lab Results Component Value Date FERRITIN 220 02/13/2024 FERRITIN 254 (H) 02/12/2024 HGB 10.3 (L) 09/18/2024 HGB 12.3 04/11/2024 -ordered repeat labs 10/01/24 Assessment & Plan (10/01/2024 2:56 PM EDT): Lab Results Component Value Date FERRITIN 220 02/13/2024 FERRITIN 254 (H) 02/12/2024 HGB 10.3 (L) 09/18/2024 HGB 12.3 04/11/2024 -ordered repeat labs 10/01/24 Cardiac risk counseling 02/13/2024 Overview (10/01/2024): Calculated 10/01/24: low risk The 10-year ASCVD risk score (Isiah HUERTA, et al., 2019) is: 12.2% Values used to calculate the score: Age: 59 years Sex: Female Is Non- : Yes Diabetic: No Tobacco smoker: Yes Systolic Blood Pressure: 140 mmHg Is BP treated: No HDL Cholesterol: [...] via hematology -continue ASA Assessment & Plan (10/01/2024 2:58 PM EDT): Diagnosed 05/2015 Risk factors include Lupus and tobacco -anticoagulated with coumadin several months. Discontinue via hematology -continue ASA Assessment & Plan (06/25/2023 11:30 AM EST): Diagnosed 05/2015 Risk factors include Lupus and tobacco -anticoagulated with coumadin several months. Discontinue via hematology -continue ASA Other specified health status 03/22/2023 Overview (10/01/2024): -next comprehensive annual evaluation due after 10/01/25 -eye care facilitated by [facility] -health care proxy: pt reports has at home 06/25/23 Assessment & Plan (10/01/2024 2:58 PM EDT): -next comprehensive annual evaluation due after 10/01/25 -eye care facilitated by [facility] in [facility] is [facility] -health care proxy: pt reports has at home 06/25/23 Assessment & Plan (06/25/2023 11:24 AM EST): -next physical exam due after 06/25/24 -eye care facilitated by [facility] in [facility] is [facility] -health care proxy: pt reports [...] day as of 06/25/23 Assessment & Plan (10/01/2024 2:55 PM EDT): -Continue Breo started in hospital 07/2019 250 [...] not tolerant of CPAP. Assessment & Plan (10/01/2024 2:55 PM EDT): Diagnosed in 2007. She was [...] by rheumatology Tobacco dependence syndrome 04/03/2012 Overview (10/01/2024): -Cigg/day: 5 /day -Age started: 16 -Total years smokin -Pack year history: 41 Encouraged smoking cessation resources such as pharmacomtherapy, [facility] smoking cessation group, and [facility] pharmacy smoking cessation clinic Discussed USPSTF recommends annual lung cancer screening with low dose CT in people who meet the following criteria: -ages 50 to 80 years. -have a 20 pack-year smoking history. -currently smoke cigarettes or quit within the past 15 years. -LDCT: ordered 06/25/23, re-ordered 10/01/24 Encouraged cessation. Assessment & Plan (10/01/2024 2:57 PM EDT): -Cigg/day: 5 /day -Age started: 16 -Total years smokin -Pack year history: 41 Encouraged smoking cessation resources such as pharmacomtherapy, [facility] smoking cessation group, and [facility] pharmacy smoking cessation clinic Discussed USPSTF recommends annual lung cancer screening with low dose CT in people who meet the following criteria: -ages 50 to 80 years. -have a 20 pack-year smoking history. -currently smoke cigarettes or quit within the past 15 years. -LDCT: ordered 06/25/23, re-ordered 10/01/24 Encouraged cessation. Assessment & Plan (06/25/2023 11:22 AM EST): -Cigg/day: 5 /day -Age started: 16 -Total years smokin -Pack year history: 41 Encouraged smoking cessation resources such as pharmacomtherapy, [facility] smoking cessation group, and [facility] pharmacy smoking cessation clinic Discussed [...] patches and nicotine gum. Dyslipidemia 11/24/2011 Overview (10/01/2024): Lab Results Component Value Date CHOL 178 02/13/2024 CHOL 190 02/12/2024 TRIG 115 02/13/2024 TRIG 103 02/12/2024 TRIG 140 10/31/2022 HDL 41 02/13/2024 HDL 43 02/12/2024 LDLCHOLCAL 114 (H) 02/13/2024 LDLCHOLCAL 127 (H) 02/12/2024 -continue lifestyle modification Assessment & Plan (10/01/2024 2:59 PM EDT): Lab Results Component Value Date CHOL 178 02/13/2024 CHOL 190 02/12/2024 TRIG 115 02/13/2024 TRIG 103 02/12/2024 TRIG 140 10/31/2022 HDL 41 02/13/2024 HDL 43 02/12/2024 LDLCHOLCAL 114 (H) 02/13/2024 LDLCHOLCAL 127 (H) 02/12/2024 -continue lifestyle modification Hypertension 11/24/2011 Overview (10/01/2024): -Blood pressure is above goal, will have pt monitor at home and call if persistently elevated 10/01/24 -Continue lifestyle modifications -Continue current medications Assessment & Plan (10/01/2024 2:56 PM EDT): -Blood pressure is above goal, will have pt monitor at home and call if persistently elevated 10/01/24 -Continue lifestyle modifications -Continue current medications Assessment & Plan (11/02/2022 3:28 PM EDT): -Blood pressure is at goal -Continue lifestyle modifications -Continue current medications Assessment & Plan (10/05/2022 1:45 PM EDT): -Blood pressure is at goal -Continue lifestyle modifications -Continue current medications Systemic lupus erythematosus 11/24/2011 Overview (05/21/2024): Onset 2014 (intermittent leukopenia, oral ulcers, bilateral elbow arthritis, ++ URIAH, Mott/INTERNATIONAL NURSE, ++ dsDNA, low C3) -methotrexate caused oral [...] eye exams with [facility] in [place] -note from Dr. Rodriguez 04/15/24 Discussed the possibility of adding DMARDs such as Benlysta. Patient is not interested. Adjust hydroxychloroquine dose to 400 mg daily x5 days a week and 200 mg daily x2 days a week Labs before next visit in 6 -followed by [facility]. Ashley Chanel note from 04/20/24 reviewed Assessment & Plan (10/01/2024 2:57 PM EDT): Onset 2014 (intermittent leukopenia, oral ulcers, bilateral elbow arthritis, ++ URIAH, Mott/INTERNATIONAL NURSE, ++ dsDNA, low C3) -methotrexate caused oral [...] eye exams with [facility] in [place] -note from Dr. Rodriguez 04/15/24 Discussed the [...] Encounters Date Type Department Care Team Description 10/03/2024 Patient Outreach [address] [address] Marjan Sams MD Care Coordination ([facility] outreach for SDOH PT-1 and food needs-referral completed /) 10/03/[address] [address] Marjan Sams MD PT-1 10/02/[address] [address] Marjan Sams MD Lung Screening referral 10/01/2024 10:30 AM EDT Office Visit [address] [address] Marjan Sams MD Systemic lupus erythematosus, unspecified SLE type, unspecified organ involvement status (CMS/HCC) (Primary Dx); Obstructive sleep apnea; Chronic obstructive pulmonary disease, unspecified COPD type (CMS/HCC); Primary hypertension; Anemia, unspecified type; Dyslipidemia; Chronic pain of left ankle; Postmenopausal; Tobacco dependence syndrome; History of DVT (deep vein thrombosis); Overweight; Dietary counseling; Exercise counseling; Encounter for screening for malignant neoplasm of colon; Other specified health status 10/01/[address] [address] Marjan Sams MD 10/01/2024 Travel 09/25/[address] [address] Marjan Sams MD chartprep 09/23/2024 Patient Outreach [facility] [address] [place], [place] [phone] Marjan Sams MD Pre-visit Planning (SDOH negative, Tobacco screening positive. ) 09/19/2024 Orders Only [address] [address] Elizabeth Ly DO Closed fracture of left foot, initial encounter (Primary Dx) 09/19/2024 Telephone [facility] [address] [place] [address] Marjan Sams MD Care Coordination 09/18/2024 Orders Only GENERIC EXTERNAL DATA DEPARTMENT Provider, Generic External Data 09/18/2024 Refill [facility] [address] [place] [address] Marjan Sams MD Arthritis of both knees 09/12/2024 10:30 AM EDT Clinical Support [address] [address] Viridiana Hernández, RN Chronically on opiate therapy (Primary Dx) 09/12/2024 9:15 AM EDT Office Visit [facility] OPTOMETRY [address] [place] [phone] Nicholas, [place], OD Presbyopia (Primary Dx) 09/12/2024 Travel 09/10/[address] [address] Baylee Caballero, chain mortiser operator 09/03/2024 Orders Only [facility] [address] [place] [phone] Elizabeth Ly DO Closed fracture of left foot, initial encounter (Primary Dx); Abnormal plain x-ray of foot; Chronic pain of left ankle 08/29/2024 Telephone [facility] [address] [place] [address] Marjan Sams MD Results 08/28/2024 9:00 AM EDT Office Visit [facility] WALK-IN CENTER [address] [place] [phone] Elizabeth Ly DO Left foot pain (Primary Dx); Paresthesia of left foot 08/20/2024 Refill [facility] [address] [place], [place] [phone] Viridiana Hernández, RN Arthritis of both knees 08/20/2024 Telephone [facility] [address] [place] [phone] Marjan Sams MD Appointment Request 08/20/2024 Telephone [facility] [address] [place] [phone] Marjan Sams MD Med Refill 08/19/2024 12:00 PM EDT Office Visit [facility] [address] [place] [address] Malachi ElizabethDO 08/19/2024 Travel 08/18/2024 Telephone [facility] [address] [place] [address] Marjan Sams MD Call Back Request 08/01/2024 10:00 AM EST Clinical Support [facility] [address] [place] [address] Viridiana Hernández, KIMBERLY Chronically on opiate therapy 08/01/2024 Telephone [facility] [address] [place] [address] Viridiana Hernández, KIMBERLY 08/01/2024 Refill [facility] [address] [place] [address] Viridiana Hernández, KIMBERLY 08/01/2024 Travel 07/23/2024 Refill [facility] [address] [place] [address] Marjan Sams MD Arthritis of both knees [...] EDT Travel History Travel Start Travel End [facility] 09/04/2024 09/10/2024 Last Filed Vital Signs Vital [...] Mass Index 28.13 10/01/2024 9:53 AM EDT Plan of Treatment Upcoming Encounters Date Type Department Care Team (Late st Contact Info) Description 11/14/2024 9:30 AM EDT Clinical Support [facility] [address] [place] [address] Viridiana Hernández, RN [address] [place] [address] Health Maintenance Due Date Last Done Comments CT Colonography 1966 FIT DNA/Cologuard 1965 FIT 1965 FOBT 1965 Sigmoidoscopy 1965 Mammogram 09/23/2024 03/25/2024, 03/05, 02/11/2024, Additional history exists Depression Screening 02/12/2025 02/13/2024, 02/13/20 24 SDOH Screening 09/23/2025 09/23/2024 Alcohol/Substance Use Screening 10/01/2025 10/01/2024 Tobacco Screening 10/01/2025 10/01/2024 Colonoscopy 03/30/2027 03/30/2017 Colorectal Cancer Screening 03/30/2027 [...] Procedure Name Priority Date/Time Associated Diagnosis Comments DNA (DS) ANTIBODY Routine 09/18/2024 9:3 5 AM EDT COMPLEMENT COMPONENT C4C Routine 09/18/2024 9:35 AM EDT COMPLEMENT COMPONENT C3C Routine 09/18/2024 9:35 AM EDT PROTEIN CREATININE RATIO, URINE Routine 09/18/2024 9:35 AM EDT C-REACTIVE PROTEIN Routine 09/18/2024 9: 35 AM EDT COMPREHENSIVE METABOLIC PANEL Routine 09/18/2024 9:35 AM EDT URINALYSIS, COMPLETE Routine 09/18/2024 9:35 AM EDT SED RATE BY MODIFIED WESTERGREN Routine 09/18/2024 9:35 AM EDT CBC WITH AUTO DIFFERENTIAL Routine 09/18/2024 9:35 AM EDT MR ANKLE W AND WO CONTRAST LEFT [...] Recently Relevant to Health Maintenance Results * Protein Creatinine Ratio, Urine (09/18/2024 9:35 AM EDT) Creatinine, Urine 88.10 mg/dL [facility] Protein, Total, Random Urine 11 <12 mg/dL [facility] Protein/Creatin ine Ratio, Ur 0.12 <0.2 [facility] Comment:The spot urine prote in:creatinine ratio may increase to 0.3during normal . 09/18/2024 9:35 AM EDT 09/18/2024 11:03 AM EDT us Generic External Data Provider LAB URINE ORDERAB LES Final Result [facility] [address] [place] [phone] * (ABNORMAL) CBC auto differential (09/18/2024 9:35 AM EDT) White Blood Count 3.3(L) 4.8 - 10.8 X10*3/uL [facility] Red Blood Count 3.43(L) 4.20 - 5.50 X10*6/uL [facility] Hemoglobin 10.3(L) 12.0 - 16.0 g/dl [facility] Hematocrit 32.3(L) 37.0 - 47.0 % [facility] Mean Corpuscular Volume 94.2 80.0 - 98.0 fL [facility] Mean Corpuscular Hemoglobin 30.0 27.0 - 33.0 pg [facility] Mean Corpuscular HGB Conc 31.9 31.0 - 35.0 g/dl [facility] Red Cell Distribution Width 18.3(H) 11.0 - 16.0 % [facility] Platelet Count 241 160 - 400 X10*3/uL [facility] Mean Platelet Volume 9.8 9.4 - 12.3 fL [facility] Neutrophils Percent Auto 67.1 45 - 73 % [facility] Imm Gran Pct Auto 0.3 0.0 - 0.4 % [facility] Lymphocytes Percent Auto 26.6 20 - 40 % [facility] Monocytes Percent Auto 5.1 2 - 11 % [facility] Eosinophils Percent Auto 0.6 0 - 4 % [facility] Basophils Percent Auto 0.3 0 - 2 % [facility] NRBC Pct Auto 0.0 0.0 - 0.2 /100WBC [facility] Neutrophils Absolute Auto 2.2 2.0 - 8.3 x10*3/uL [facility] Imm Gran Abs Auto 0.01 0.00 - 0.03 X10*3/uL [facility] Lymphocytes Absolute Auto 0.9(L) 1.2 - 4.9 X10*3/uL [facility] Monocytes Absolute Auto 0.2 0.1 - 1.2 X10*3/uL [facility] Eosinophils Absolute Auto 0.0 0.0 - 0.4 X10*3/uL [facility] Basophils Absolute Auto 0.0 0.0 - 0.2 X10*3/uL [facility] NRBC Abs Auto 0.000 0.0 - 0.012 X10*3/uL [facility] 09/18/2024 9:35 AM EDT 09/18/2024 9:35 AM EDT us Generic External Data Provider LAB BLOOD ORDERAB LES Final Result Performing Organization Address [facility]/ZIP Co de Phone Number [facility] [address] [place] [phone] * (ABNORMAL) DNA (ds) Antibody (09/18/2024 9:35 AM EDT) Anti DNA DS Antibody 85(A) IU/mL [facility] Comment:IU/mL Interpretation < or = 4 Negative 5-9 Indeterminate > or = 10 PositiveTHIS TEST WAS PERFORMED AT:[employer] [place] [phone] ALFREDO VILLAGOMEZ MD 09/18/2024 9:35 AM EDT 09/18/2024 9:35 AM EDT Generic External Data Provider LAB BLOOD ORDERAB LES Final Result Performing Organization Address [facility] Co de Phone Number [facility] [address] [place] [phone] * (ABNORMAL) Urinalysis Complete (09/18/2024 9:35 AM EDT) Color Urine Yellow [facility] Appearance Urine Clear [facility] PH 5.5 5.0 - 9.0 [facility] Glucose Urine UA Negative Negative mg/dL [facility] Urine Blood Negative Negative [facility] Specific [place] - Urine 1.015 1.005 - 1.025 [facility] Urine Protein Trace Neg-Trace mg/dL [facility] Urine Ketones Negative Negative mg/dL [facility] Nitrite Urine Negative Negative [facility] Leukocyte Esterase Urine Trace(A) Negative [facility] RBC Urine 0-2 0 - 2 /HPF [facility] Urine WBC 0-5 0 - 5 /HPF [facility] Urine Squamous Epithelial Cell 6-10 0 - 2 /HPF [facility] Urine Bacteria 3+ None Seen [facility] Hyaline Casts, Urine 0-2 0 - 2 /LPF [facility] 09/18/2024 9:35 AM EDT 09/18/2024 11:03 AM EDT Generic External Data Provider LAB URINE ORDERAB LES Final Result Performing Organization Address [facility] de Phone Number [facility] [address] [place] [phone] * (ABNORMAL) Sed Rate by Modified Yohannesergren (09/18/2024 9:35 AM EDT) Erythrocyte Sedimentation Rate 85(H) 0 - 20 MM/HR [facility] Comment:Patients with polycy themia and many hemoglobin abnormalitiesmay have depressed sed rates whereas patients with anemiamay have elevated sed rates. 09/18/2024 9:35 AM EDT 09/18/2024 9:35 AM EDT Generic External Data Provider LAB BLOOD ORDERAB LES Final Result Performing Organization Address [facility] de Phone Number [facility] [address] [place] [phone] * Complement Component C3c (09/18/2024 9:35 AM EDT) Complement C3 112 83 - 193 mg/dL [facility] Comment:THIS TEST WAS PERFOR MED AT:[employer] [address] [phone] ALFREDO VILLAGOMEZ MD 09/18/2024 9:35 AM EDT 09/18/2024 9:35 AM EDT Generic External Data Provider LAB BLOOD ORDERAB LES Final Result Performing Organization Address [facility] Co de Phone Number [facility] [address] [place] [phone] * Complement Component C4c (09/18/2024 9:35 AM EDT) Complement C4 27 15 - 57 mg/dL [facility] Comment:THIS TEST WAS PERFOR MED AT:[employer] [place] [phone] ALFREDO VILLAGOMEZ MD 09/18/2024 9:35 AM EDT 09/18/2024 9:35 AM EDT us Generic External Data Provider LAB BLOOD ORDERAB LES Final Result Performing Organization Address [facility]/ZIP Co de Phone Number [facility] [address] [place] [phone] * (ABNORMAL) C-reactive Protein (09/18/2024 9:35 AM EDT) Pathologist [facility] C Reactive Protein 2.43(H) < or = 0.50 mg/dL [facility] 09/18/2024 9:35 AM EDT 09/18/2024 9:35 AM EDT Generic External Data Provider LAB BLOOD ORDERAB LES Final Result Performing Organization Address [facility] Co de Phone Number [facility] [address] [place] [phone] * (ABNORMAL) Comprehensive Metabolic Panel (09/18/2024 9:35 AM EDT) Pathologist [facility] Sodium 141 135 - 145 mmol/L [facility] Potassium 3.7 3.3 - 5.1 mmol/L [facility] Chloride 110(H) 96 - 108 mmol/L [facility] Carbon Dioxide 23 22 - 29 mmol/L [facility] Anion Gap 12 12 - 20 [facility] Urea Nitrogen (BUN) 11 9 - 16 mg/dL [facility] Creatinine, Serum 0.74 0.5 - 1.4 mg/dL [facility] Estimated Glomerular Filt Rate >60 [facility] Comment:Chronic Kidney Disea se: Estimated GFR < 60 mL/min/1.78l3Pwqyau Kidney Disease: Estimated GFR < 15 mL/min/1.73m2 Glucose 79 60 - 115 mg/dL [facility] Calcium 9.0 8.4 - 10.2 mg/dL [facility] Bilirubin, Total 0.4 0.0 - 1.0 mg/dL [facility] Aspartate Amino Transferase 20 5 - 31 U/L [facility] Alanine Aminotransferase 9 0 - 31 U/L [facility] Total Protein 8.4(H) 6.5 - 8.0 g/dL [facility] Albumin Level 3.4(L) 3.5 - 5.0 g/dL [facility] Alkaline Phosphatase 68 39 - 117 U/L [facility] 09/18/2024 9:35 AM EDT 09/18/2024 9:35 AM EDT us Generic External Data Provider LAB BLOOD ORDERAB LES Final Result [facility] [address] [place] [phone] * MR Ankle w/ and w/o Contrast Left (09/16/2024 10:46 AM EDT) Anatomical Region Laterality Modality Lower Extremities, Ankle Left Magneti c Resonance 09/16/2024 10:4 6 AM EDT Narrative 09/16/2024 12:40 PM EDT ? [facility] ?[address] ?[place] [address] ? Magnetic Resonance Report ? Signed ? Patient: Sunni,Tammy Garrett ?MR#: [id number] ?? [id number] ? : 1965 ?Acct:[id number] ? Age/Sex: 59 / F ?ADM Date: 04/15/25 ? Loc: HO.NEURO ? Attending Dr: Elizabeth Ly DO ? Ordering Physician: Elizabeth Ly DO ?? Date of Service: 09/16/24 ?? Procedure(s): MR ankle LT wo/w con ?? Accession Number(s): [id number] ? cc: Marjan Sams MD; Elizabeth Ly [...] DD/ 1046 ? TD/TT: 09/16/24 1145 ? Cork Insulator Helper: ? Procedure Note Jessica Eddy - 09/16/[address] [address] Magnetic Resonance Report Signed Patient: Tammy Moeller#: [id number] : 1965Acct:[id number] Age/Sex: 59 / FADM Date: 09/16/24 Loc: HO.NEURO Attending Dr: Elizabeth Ly DO Ordering Physician: Elizabeth Ly DO Date of Service: 09/16/24 Procedure(s): MR ankle LT wo/w con Accession Number(s): [id number] cc: Marjan Sams MD; Elizabeth Ly DO [...] 09/16/24 1237 DD/ 1046 TD/TT: 09/16/24 1145 Cork Insulator Helper: Elizabeth Ly DO IMG MRI PROCEDURES Final Res ult * POCT BLADE-14 Urine Drug Screen (09/12/2024 10:11 AM EDT) Only the most recent of2 resultswithin the time period is included. Oxycodone Screen, Urine Positive Urine Urine specimen obtained by clean catch procedure / Unknown 09/12/2024 10:11 AM EDT Narrative Viridiana Hernández RN - 09/12/2024 10:11 AM EDT .UTOX cup Lot#[id number] Exp. 01/21/26 Internal Pass Control us Marjan Latrell MD POINT OF CARE TEST ENTER/E DIT ORDERABLES Final Result * XR Foot 3+ Views Left (08/28/2024 10:55 AM EDT) Anatomical Region Laterality Modality Lower Extremities, Foot Left Radiogra phic Imaging 08/28/2024 10:5 5 AM EDT Narrative 08/28/2024 10:56 AM EDT ?[facility] ?[address] ?[place] [address] ?XRay Report ? Signed ? Patient: Tammy Moeller ?MR#: [id number] ?? [id number] ? : 1965 ?Acct:[id number] ? Age/Sex: 59 / F ?ADM Date: 08/28/24 ? Loc: HO.HHCX ? Attending Dr: Elizabeth Ly DO ? Ordering Physician: Elizabeth Ly DO ?? Date of Service: 08/28/24 ?? Procedure(s): XR foot LT min 3V ?? Accession Number(s): [id number] ? cc: Elizabeth Ly DO ? CLINICAL [...] signed by Modesto Huizar MD in OV> ?08/28/241055 ? DD/ 54 ? TD/TT: 08/28/24 1055 ? Cork Insulator Helper: ? Procedure Note Donmarieter, Image - 08/28/[address] [address] XRay Report Signed Patient: Tammy Moeller#: [id number] : 1965Acct:[id number] Age/Sex: 59 / FADM Date: 08/28/24 Loc: HO.HHCX Attending Dr: Elizabeth Ly DO Ordering Physician: Elizabeth Ly DO Date of Service: 08/28/24 Procedure(s): XR foot LT min 3V Accession Number(s): [id number] cc: Elizabeth Ly DO CLINICAL HISTORY: foot [...] 08/28/24 1056 DD/ 1055 TD/TT: 08/28/24 1055 Cork Insulator Helper: us Elizabeth Malachi DO IMG XR PROCEDURES Final Resu lt * BI Mammogram Diagnostic Tomosynthesis Bilateral (03/25/2024 2:00 PM EDT) Anatomical Region Laterality Modality Breast Bilateral Mammography 03/25/2024 2:00 PM EDT Narrative 03/25/2024 2:50 PM EDT ? [facility] ? [address] ?[place], [place] [address] ? Mammography Report ? Signed ? Patient: Tammy Moeller ?MR#: [id number] ?? [id number] ? : 1965 ?Acct:[id number] ? Age/Sex: 58 / F ?ADM Date: 03/25/24 ? Loc: HO.MAMMO ? Attending Dr: Marjan Sams MD ? Ordering Physician: Marjan Sams MD ?Results: 2B ?? enign Findings ? Date of Service: 03/25/24 ?Follow Up: 1 Year From Orig ?? inal Mammogram ? Procedure(s): MM tomosynthesis diagnostic BI ?? Accession Number(s): [id number] ? cc: Marjan Sams MD ? EXAMINATION: [...] DD/ 1400 ? TD/TT: 03/25/24 1422 ? Cork Insulator Helper: ? Procedure Note Donoteloisainterpreter, Image - [facility] [address] [place] [address] Mammography Report Signed Patient: Tammy Moeller#: [id number] : 1965Acct:[id number] Age/Sex: 58 / FADM Date: 03/25/24 Loc: HO.MAMMO Attending Dr: Marjan Sams MD Ordering Physician: Marjan Sams MDResults: 2B enign Findings Date of Service: 03/25/24Follow Up: 1 Year From Orig inal Mammogram Procedure(s): MM tomosynthesis diagnostic BI Accession Number(s): [id number] cc: Marjan Sams MD EXAMINATION: MM DIAGNOSTIC [...] 03/25/24 1447 DD/ 1400 TD/TT: 03/25/24 1422 Cork Insulator Helper: us Marjan Sams MD [facility] BI PROCEDURES Final Re sult * HIV-1/2 Antigen and Antibodies, Fourth Generation, with Reflexes (02/13/2024 10:36 AM EDT) HIV AB/AG Nonreactive Nonreactive [facility] Comment:HIV-1 p24 Ag and/or HIV-1/HIV-2 Ab not detected.A test result that is nonreactive does not exclude thepossibility of exposure to or infection with HIV-1 and/orHIV-2. Nonreactive results in this assay for individualswith prior exposure to HIV-1 and/or HIV-2 may be due toantigen and antibody levels that are below the limit ofdetection of this assay.The IntelliMatniClear Vascular HIV Ag/Ab Combo assay result andsupplemental assay results should be interpreted inconjunction with the patient's clinical presentation,history and other laboratory results. If the results areinconsistent with clinical evidence, additional testing issuggested to confirm the result. Blood Venous blood specimen / Unknown 02/13/2024 10:36 AM EDT 02/13/2024 11:19 AM EDT Marjan Sams MD LAB BLOOD ORDERABLES Final Result [facility] [address] [place] [phone] * (ABNORMAL) Lipid Panel, Standard (02/13/2024 10:36 AM EDT) Triglycerides 115 <150 mg/dL [facility] Comment:Desirable Triglyceri de: less than 150 mg/dLBorderline High Triglyceride 150-199 mg/dLHigh Triglyceride: 200-499 mg/dLVery High Triglyceride: greater than or equal to 5OO mg/dL Cholesterol 178 <200 mg/dL [facility] Comment:Desirable Cholestero l: less than 200 mg/dLBorderline High Cholesterol: 200-239 mg/dLHigh Cholesterol: greater than 239 mg/dL LDL Cholesterol Calculated 114(H) <100 mg/dL [facility] Comment:Desirable LDL: less than 100 mg/dLNear Optimal/Above Optimal LDL: 110- 129 mg/dLBorderline High LDL: 130-159 mg/dLHigh LDL: 160-189 mg/dLVery High LDL: greater than or equal to 190 mg/dL HDL Cholesterol 41 >40 mg/dL [facility] Comment:Desirable HDL: great er than 40 mg/dL Note: This HDL assay may give artificially low results in patients with liver disease. Blood Venous blood specimen / Unknown 02/13/2024 10:36 AM EDT 02/13/2024 11:19 AM EDT Marjan Sams MD LAB BLOOD ORDERABLES Final Result [facility] [address] [place] [address] [phone] * Thinprep PAP, HPV mRNA E6/E7 RFX HPV 16,18/45, Chlamydia/N. Gonorrhoeae (11/03/2022 12:00 AM EDT) Clinical Information: ROUTINE Leveler LMP: NONE GIVEN Reesiot Prev. PAP: NONE GIVEN Reesiot Prev. BX: NO Reesiot SOURCE: None given Leveler Statement Of Adequacy: SATISFACTORY FOR EVALUATION Leveler Interpretation/Re sult: Leveler Comment: Negative for intraepithelial lesion or malignancy. Atrophic pattern; predominantly parabasal cells Manager Residential: [employer] Comment: WXW, CT(ASCP) CT Screening Location: [place] [address] (Always Message) [facility] [email or web address] / Net[employer]er Comment: EXPLANATORY NOTE: The Pap is a [...] HPV nRNA E6/E7 Not Detected Not Detected Leveler Comment: Methodology: Metal Bonder-Mediated Amplification This assay detects E6/E7 viral messenger RNA (mRNA) from 14 high-risk HPV types (16,18,31,33,35,39,45,51,52,56,58,59,66,68). Cervical sources are required for HPV testing. If a vaginal source from a patient who has had a total hysterectomy with removal of cervix was submitted, please contact the testing laboratory for alternative testing options. For additional information, please refer to http://education.RedKLEVER/faq/RRM757c1 (This link if provided for information/ educational purposes only.) Chlamydia trachomatis RNA, TMA, Urogenital NOT DETECTED NOT DETECTED Leveler Neisseria gonorrhoeae RNA, TMA, Urogenital NOT DETECTED NOT DETECTED [facility] (Always Message) [facility] Comment: The analytical performance characteristics of this assay, when used to test SurePath(TM) specimens have been determined by [facility]. The modifications have not been cleared or approved by the FDA. This assay has been validated pursuant to the CLIA regulations and is used for clinical purposes. For additional information, please refer to https://My-Hammer.RedKLEVER/faq/QIQ280 (This link is being provided for information/ educational purposes only.) 11/03/2022 11/06/2022 9:1 5 PM EDT Narrative [facility] - 11/09/2022 10:33 AM EDT FASTING: UNKNOWN Marjan Sams MD LAB PATHOLOGY ORDERABLES F inal Result [facility] [address], [place] [address] [facility] [address] [place] [address] * Hepatitis C Antibody with Reflex to HCV, RNA, Quantitative, Real-Time PCR (10/31/2022 8:11 AM EDT) Hepatitis C Antibody NON-REACT CHOCO NON-REACT CHOCO [facility] Index 0.43 <1.00 [facility] Comment: HCV antibody was non-reactive. There is no laboratory evidence of HCV infection. In most cases, no further action is required. However, if recent HCV exposure is suspected, a test for HCV RNA (test code 12381) is suggested. For additional information please refer to http://My-Hammer.RedKLEVER/faq/DUR87s8 (This link is being provided for informational/ educational purposes only.) Blood Venous blood specimen / Unknown 10/31/2022 8:11 AM EDT 10/31/2022 8:11 AM EDT Narrative [facility] - 10/31/2022 9:53 PM EDT FASTING:YES FASTING: YES Marjan Sams MD LAB BLOOD ORDERABLES Final Result [facility] [address], [place] [address] [facility] [address] [place] [address] * Hm Colonoscopy (03/30/2017 12:40 PM EDT) Historical Provider HEALTH MAINTENANCE Final Result from Last 3 Months or Most Recently Relevant to Health Maintenance Insurance AET[employer] MEDICARE REPLACEMENT Advance Directives Documents on File Type Date Recorded Patient Licensed Prosthetist Expl anation Advance Directives and Living Will 10/01/2024 12:27 PM HEALTH CARE PROXY Care Teams Railroader Relationship Specialty Start Date End Date Marjan Sams MD [address] [place] [address] PCP - General Family Medicine 06/04/18 Esteban Nice MD [address] [place] [address] [address] [place] [address] Rheumatology 05/21/24 Ashley Chanel OD [address] [place] [phone] Optometry 05/21/24
--- OUTSIDE RECORDS SUMMARY | 2024-10-03 13:03 | XMS_ITS | Encounter Summary ---
Author Organization [employer] Address [address] [facility] 7[address] [place] [address] Care Team Providers Care Consulting Services Project Manager Name Role Phone Marjan Sams MD Primary Care Provider [phone] Esteban Nice MD Unavailable Ashley Chanel OD Unavailable [phone] Reason for Visit * Reason Onset Date Comments Med Refill 08/20/2024 Encounter Details Date Type Department Care Team (Late st Contact Info) Description 08/20/2024 Telephone [facility] [address] [place] [address] Marjan Sams MD [address] [place] [address] Med Refill Social History Tobacco Use Types [...] EDT Travel History Travel Start Travel End [facility] 09/04/2024 09/10/2024 documented as of this encounter Miscellaneous Notes * Telephone Encounter - Pj Mondragon - 08/20/2024 8:09 AM EDT TC from pt requesting medication refill. Medications needing refill : oxyCODONE-acetaminophen (Percocet) 5-325 MG tablet To be sent to: [facility]/pharmacy #[id number] [place] [address] documented in this encounter Plan of Treatment Upcoming Encounters Date Type Department Care Team (Late st Contact Info) Description 11/14/2024 9:30 AM EDT Clinical Support [facility] [address] [place], [place] [phone] Viridiana Hernández RN [address] [place], [place] [phone] documented as of this encounter Visit Diagnoses Not on filedocumented in this encounter Additional Health Concerns Assessment Noted Time PHQ-9 Depression Total Score: 4 02/13/20 24 9:45 AM EDT documented as of this encounter Care Teams Consulting Services Project Manager Relationship Specialty Start Date End Date LatrellMarjan salazar MD [address] [place] [address] PCP - General Family Medicine 06/04/18 Esteban Nice MD [address] [place] [address] [address] [place] [address] Rheumatology 05/21/24 Ashley Chanel OD [address] [place] [address] Optometry 05/21/24 documented as of this encounter
[2024-10-03 13:28] LABS: MANUAL DIFF FLAG NO
[2024-10-03 13:47] LABS: Basophils Percent Auto 0.2 % (0-2); Eosinophils Percent Auto 0.4 % (0-4); Hematocrit 34.1 % (37.0-47.0); Imm Gran Abs Auto 0.01 X10*3/uL (0.00-0.03); Imm Gran Pct Auto 0.2 % (0.0-0.4); Lymphocytes Absolute Auto 1.2 X10*3/uL (1.2-4.9); Lymphocytes Percent Auto 25.6 % (20-40); Mean Corpuscular HGB Conc 32.3 g/dl (31.0-35.0); Mean Corpuscular Hemoglobin 29.7 pg (27.0-33.0); Mean Corpuscular Volume 92.2 fL (80.0-98.0); Mean Platelet Volume 9.8 fL (9.4-12.3); Monocytes Absolute Auto 0.2 X10*3/uL (0.1-1.2); Monocytes Percent Auto 5.2 % (2-11); Neutrophils Absolute Auto 3.2 x10*3/uL (2.0-8.3); Neutrophils Percent Auto 68.4 % (45-73); Platelet Count 282 X10*3/uL (160-400); Red Cell Distribution Width 17.2 % (11.0-16.0); White Blood Count 4.6 X10*3/uL (4.8-10.8)
[2024-10-03 14:02] LABS: Iron 44 mcg/dL (30-160); Percent Iron Saturation 21 % (15-50); Total Iron Binding Capacity 207 mcg/dL (228-428); Unsaturated Iron Binding 163 ug/dL
[2024-10-03 14:12] LABS: Ferritin 292 ng/mL (10-250); TSH reflex Free T4 1.07 uIU/mL (0.32-4.0)
[2024-10-03 14:39] LABS: Folate 4.1 ng/mL (> or = 4.0); Vitamin B12 969 pg/mL (200-900)
== END 2024-10-03 12:38 | disposition home or self-care (01) ==
LOC: HO.10HDL 12:37
PROVIDERS: Visit Provider Family Medicine
DX: M32.8 Other forms of systemic lupus erythematosus (principal); D64.9 Anemia, unspecified; G62.9 Polyneuropathy, unspecified; Z79.899 Other long term (current) drug therapy
CPT/HCPCS: 36415; 82607; 82728; 82746; 83540; 84443; 85025; 99212

== ENCOUNTER 2024-10-03 12:47 | Outpatient (AMB) | payer MEDICARE, SELFPAY ==
--- NOTE | 2024-10-03 12:57 | A.OFFVIS_ITS ---
Vital Signs 10/03/24 13:00 Height 5 ft 2 in Weight 149 lb 14.629 oz BMI 27.4 BP 112/70 Blood Pressure Location Rt brachial Position Sitting Pulse 80 Pulse Source Pulse Oximeter Pulse Oximetry (%) 98 Oxygen Delivery Method Room Air Intake Visit Reasons: SLE Intake Note: Patient presents for SLE follow up. Allergies No Known Allergies Allergy (Verified 10/03/24 13:00) Medication List - Last Reconciled 10/03/24 by Dea Hewitt MD albuterol sulfate 90 mcg/actuation 1 inh inhalation QID PRN aspirin (Adult Low Dose Aspirin) 81 mg PO DAILY fluticasone furoate-vilanterol 200-25 mcg/dose (Breo Ellipta) 1 inh inhalation DAILY hydroxychloroquine 400 mg daily x5 days a week and 200 mg daily x2 days a week levalbuterol HCl 1.25 mg inhalation Q4H PRN oxycodone-acetaminophen 5-325 mg (Percocet) 1 tab PO Q12H PRN HPI Comments Details: Patient is a 59-year-old female chronic everyday smoker with asthma/COPD, DARIN, history of DVT and lupus here today for follow up Interval History: Patient last seen 04/15/[address] Nice. At that time she was following up for her lupus. She was on hydroxychloroquine 400 mg daily. Complaining of a 2 week history of generalized achiness but denied fevers, painful or swollen joints and oral ulcers. She was recently evaluated for leg pain and was found to have neuropathy (based on EMG) and bone infarcts from SLE (based on MRI). She has a follow up with ortho soon Today complaining of numbness to the right ring finger. 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 Wise 12/2020: Pt does not know what the initial presentation for her Lupus was. She has a positive URIAH, chronically elevated DsDNA and positive Sm/BOAT REPAIRER. Her clinical manifestations have included intermittant leukopenia, oral ulcers and bilateral elbow arthritis. The oral ulcers improved on Cellcept. In the past, she has failed Benlysta infusions. She has also been on MTX which was switched to Cellcept for oral ulcers. Off of Cellcept now. Had a flare of her lupus in September 2018. Her flare presented as worsening arthralgias. Patient was hospitalized at [facility] for this. On Plaquenil b.i.d.. Previously on prednisone 5 mg daily, now uses as needed. Patients lupus continues to be well controlled. Denies any recent flares. No rashes, ulcers fevers. Up-to-date with Ophthalmology monitoring. Patient knows when her lupus is going flare based on constitutional symptoms such as malaise and joint swelling so she will take one 5mg tablet of Prednisone to prevent progression to a full blown flare that has required hospitalization in the past. She has not had to use any Prednisone since her last visit. Current Rheumatology Medication(s): Plaquenil 400mg x 5 days a week and 200mg x 2 days a week REPLACED BY [facility] Medical History (Updated 10/03/24 @ 13:13 by Dea Hewitt MD) Right femoral vein DVT Smoker COPD (chronic obstructive pulmonary disease) Asthma Obstructive sleep apnea Systemic lupus erythematosus Family History Mother Breast cancer Social History Household Members: Significant Other Housing: Apartment Do you presently have visiting nurse or other home services: No Alcohol intake: current Alcohol intake frequency: a few times a week Alcohol type: hard liquor Patient Tobacco Use Status: Current everyday Tobacco user Tobacco use type: Cigarette Cigarette Packs Per Day: 0.5 Cigarettes Per Day: 10.0 Years Smoked: since age 15 Second Hand Smoke Exposure: No service: No Current occupational status: disabled Review of Systems Const Details: Review of Systems Constitutional: Denies fever, chills, weight loss ENT: Denies vision changes, eye pain or eye redness, dental caries, dry mouth GI: Denies nausea, vomiting, diarrhea, abdominal pain, change in BM Pulm: Denies SOB, HERNANDEZ, hemoptysis, wheezing Cards: Denies chest pain, palpitations Skin: Denies Raynaud's, rash, nail changes, photosensitivity, SIGN ARTIST: Denies headaches, weakness, paresthesias, recurrent falls MSK: as per HPI All other systems reviewed and are unremarkable except noted above Physical Exam Vital Signs: Last Vital Signs Pulse 80 10/03/24 13:00 BP 112/70 10/03/24 13:00 Pulse Ox 98 10/03/24 13:00 Oxygen Delivery Method Room Air 10/03/24 13:00 BMI result Body Mass Index 27.4 Vital signs reviewed Physical Examination CONSTITUITIONAL Patient alert and cooperative. Well appearing and in no apparent painful distress Very thin hair but no alopecia HEENT Conjunctiva and sclera clear. ?Pupils equal round and reactive to light. ?No lymphadenopathy. ? CHEST/RESPIRATORY SYSTEM Normal respiratory effort and able to speak in complete sentences. ?Clear to auscultation bilaterally but decreased air movement. ?No crackles, rales, rhonchi, wheezes heard. CARDIAC SYSTEM Regular rate and rhythm. ?S1 and S2 heard no murmurs. ?Radial pulses intact bilaterally MSK Hands: ?Able to make a fist. No synovitis noted to the MCPs, PIPs or DIPs. ?No tenderness to palpation of these joints. No deformities noted. ? Wrists: ?Full range of motion at the wrists without pain. ?No tenderness to palpation or synovitis noted to the wrists. Negative Phalen's test bilaterally Elbows: Full range of motion without pain. No tenderness, weakness, swelling, increased warmth or erythema. Shoulders: Full range of active range of motion without pain. No tenderness, weakness, swelling, increased warmth or erythema. Knees: ?Full range of motion. ?No tenderness, swelling, increased warmth or eryt adry.?Crepitations Ankles: Full range of motion. ?No tenderness, swelling, increased warmth or erythema.? Feet: ?Negative squeeze test. ?No tenderness to palpation or swelling of the MTPs. Tender points:?No tenderness to palpation of the bilateral trapezius, supraspinatus, greater trochanters, anterior costochondral junctions, bilateral gluteal areas, bilateral suboccipital muscle insertions SKIN Skin intact without rashes. Results Reviewed Results Reviewed: Laboratory Tests 04/11/24 09/18/24 09:24 09:35 WBC 3.3 L RBC 3.43 L Hgb 10.3 L Hct 32.3 L Plt Count 241 D ESR 85 H Sodium 141 Potassium 3.7 Chloride 110 H Carbon Dioxide 23 BUN 11 Creatinine 0.74 AST 20 ALT 9 Alkaline Phosphatase 68 C-Reactive Protein 0.94 H 2.43 H Total Protein 9.1 H 8.4 H Immunology Labs 04/11/24 09/18/24 09:24 09:35 Double Strand DNA Ab 77 H 85 H Complement C3 114 112 Complement C4 30 27 Urine tests 09/18/24 09:35 Urine Color Yellow Urine Appearance Clear Urine Protein Trace Urine Blood Negative Protein/Creatinin Ratio 0.12 Assessment & Plan Assessment & Plan (1) Systemic lupus erythematosus: Comment: onset around 2014 (intermittent leukopenia, oral ulcers, bilateral elbow arthritis, ++ URIAH, Mott/BOAT REPAIRER, ++ dsDNA, low C3) MTX caused oral ulcers, improved on CellCept Was on Benlysta infusions at some time (patient does not recall benefits or side effects) On HCQ regularly + prn prednisone Code(s): M32.9 - Systemic lupus erythematosus, unspecified Category: Medical Qualifiers: Systemic lupus erythematosus type: other Systemic lupus erythematosus organ involvement: unspecified Qualified Code(s): M32.8 - Other forms of systemic lupus erythematosus Plan: #SLE Patient is a 59-year-old female with SLE here today for follow up. Currently in remission. SLE can cause bone infacrts especially in the setting of active disease and chronic steroid use. Patient currently not on steroids and no evidence of active disease. Will follow up ortho recs Plan - HCQ 400mg x 5 days a week, 200mg on the weekends - RTC 6 months - Labs before visit: CBC, CMP, ESR, CRP, C3, C4, dsDNA, UA, UPC (2) Neuropathy: Code(s): G62.9 - Polyneuropathy, unspecified Plan: #Neuropathy Patient with neuropathy as evidenced EMG. Given the negative Phalen's test is unsure if the numbness that she feels in her right ring finger is related to carpal tunnel. She is currently on gabapentin 300 mg at night we will increase to 600 mg to see if she gets better efficacy from this. She does not have any current side effects on the 300. Plan - Increase gabapentin to 600mg at night (3) Long-term use of hydroxychloroquine: Comment: Eye exam OK 08/2023 Code(s): Z79.899 - Other termite exterminator (current) drug therapy Category: Medical Plan: #Long-term Use of Hydroxychloroquine Discussed with patient the risks and benefits of hydroxychloroquine in managing the rheumatic condition Benefits include: - Reduced pain, reduce mortality, maintenance of remission and reduction of flares Risks include: - GI upset, skin hyperpigmentation, retinal toxicity (especially after more than 5 years of use), myopathy Advised yearly ophthalmology visits Plan I spent 30 minutes reviewing the record and labs, taking a history, examining the patient, discussing the treatment plan, ordering diagnostic work up and documenting in the medical record Orders: Orders Complement C3 6 Months M32.8 - Other forms of systemic lupus erythematosus Complement C4 6 Months M32.8 - Other forms of systemic lupus erythematosus UA w Microscopic 6 Months M32.8 - Other forms of systemic lupus erythematosus Anti DNA DS Antibody 6 Months M32.8 - Other forms of systemic lupus erythematosus Complete Blood Count Auto Diff 6 Months M32.8 - Other forms of systemic lupus erythematosus Comprehensive Met. Panel 6 Months M32.8 - Other forms of systemic lupus erythematosus C Reactive Protein 6 Months M32.8 - Other forms of systemic lupus erythematosus Erythrocyte Sedimentation Rate 6 Months M32.8 - Other forms of systemic lupus erythematosus Protein Creatinine Ratio, Ur 6 Months M32.8 - Other forms of systemic lupus erythematosus Medications: New gabapentin 600 mg (2 x 300 mg) PO BEDTIME 90 days 180 caps 1RF G62.9 - Polyneuropathy, unspecified, M32.8 - Other forms of systemic lupus erythematosus Coding Level of Care Code Est Pt Level 4 (98209) Complex EM visit Add On G2211 Diagnoses Other forms of systemic lupus erythematosus, unspecified organ involvement status M32.8 Systemic lupus erythematosus type: other Systemic lupus erythematosus organ involvement: unspecified Neuropathy G62.9 Long-term use of hydroxychloroquine Z79.899
[2024-10-03 13:00] VITALS: BP 112/70; PULSE 80; O2SAT 98; BMI 27.4
== END 2024-10-03 13:34 | disposition home or self-care (01) ==
LOC: HO.RHE 12:47
PROVIDERS: PCP Family Medicine; Visit Provider Student in an Organized Health Care Education/Training Program
DX: M32.8 Other forms of systemic lupus erythematosus (principal); G62.9 Polyneuropathy, unspecified; Z79.899 Other long term (current) drug therapy
CPT/HCPCS: 99214; G2211

== ENCOUNTER 2024-10-29 12:55 | Outpatient (REF) | payer MEDICARE, SELFPAY ==
--- NOTE | ~2024-10-29 | MM_ITS ---
EXAMINATION: DXA BONE DENSITY AXIAL HISTORY: hx fracture, post menopausal TECHNIQUE: [employer] Dual energy absorptiometry (DEXA) of the lumbar spine, total left hip, and femoral neck was performed. COMPARISON: Comparison is made with the prior examination dated 06/27/2012. FINDINGS: The bone mineral density of the lumbar spine is 1.151, corresponding to a T-score of -0.2, and a Z-score of 0.1. This is indicative of normal bone mineral density. This represents a BMD change of -3.8% compared to the prior exam. This is statistically significant. The bone mineral density of the left total hip is 0.835, corresponding to a T-score of -1.4, and a Z-score of -1.5. This is indicative of osteopenia. This represents a BMD change of -15.6% compared to the prior exam. This is statistically significant. The bone mineral density of the left femoral neck is 0.969, corresponding to a T-score of -0.5, and a Z-score of -0.3. This is indicative of normal bone mineral density. This represents a BMD change of -1.6% compared to the prior exam. FRACTURE RISK: The FRAX index suggests a ten year probability of major osteoporotic fracture of 3.2%, and of hip fracture 0.2%. MM/XR DEXA axial skeleton IMPRESSION: Based on bone mineral density, and according to World Health Organization (WHO) criteria, the diagnosis is consistent with osteopenia. All bone density values are in grams per centimeter squared (g/cm2). Statistically, 68% of repeat scans fall within 1 SD (+/- 0.010 g/cm2 for AP spine L1-L4) and 1 SD (+/- 0.012 g/cm2 for femur total) FRAX is a trademark of the [employer]'s [employer] Metabolic Bone Disease, a World Health Organization (WHO) Collaborating Center. Electronically signed by: Alek Camejo MD 10/29/2024 01:49 PM EDT
== END 2024-10-29 12:56 | disposition home or self-care (01) ==
LOC: HO.MAMMO 12:55
PROVIDERS: PCP Family Medicine; Visit Provider Family Medicine
DX: Z78.0 Asymptomatic menopausal state (principal); S92.902D Unspecified fracture of left foot, subsequent encounter for fracture with routine healing
CPT/HCPCS: 77080

== ENCOUNTER → 2024-10-29 13:30 | Outpatient (BNV) | payer MEDICARE, SELFPAY | PROVIDERS: PCP Family Medicine; Visit Provider Radiology Diagnostic Radiology | DX: E28.39 Other primary ovarian failure (principal) | CPT/HCPCS: 77080 ==

== ENCOUNTER 2025-01-23 10:56 | Outpatient (AMB) | payer MEDICARE, SELFPAY ==
--- NOTE | 2025-01-23 07:51 | A.OFFVIS_ITS ---
Intake Visit Reasons: Current Smoker Allergies No Known Allergies Allergy (Verified 10/03/24 13:00) HPI HPI Current Smoker: Details: Initial visit for this 59yo smoker with a 22PYH. Patient started smoking at age 15 for 44 years at 1/2ppd. Currently 7 cig/day. . Denies marijuana use. Denies second hand smoke exposure. Denies exposure to chemicals or substances like asbestos. . Denies known family history of lung cancer. Denies personal history of cancers. Denies chest CT in last year. . Denies recent travel outside the [place]. Denies recent respiratory illness or recent hospitalization for respiratory issues. Reports testing positive for COVID. Admits receiving COVID Vaccine. . Denies fever, chills, new/worsening cough, hemoptysis, hoarseness or dysphagia. Denies significant chest pain, significant dyspnea or unintentional weight loss. Patient Lung Cancer Screening Questionnaire reviewed with patient by provider. . Shared Decision Making Completed. Patient meets criteria. Discussed in detail with patient, the risk vs benefit of LDCT screening. Patient consents to proceed with scan. Discussed smoking cessation. [facility] Medical History (Updated 01/23/25 @ 11:08 by Awa Heredia PA-C) History of DVT (deep vein thrombosis) (~2014) Systemic lupus erythematosus (~2006) Long-term use of hydroxychloroquine Osteopenia (~2024) COPD (chronic obstructive pulmonary disease) Asthma Obstructive sleep apnea Nicotine dependence, cigarettes, uncomplicated Hyperplastic colon polyp Surgical History (Updated 12/08/24 @ 11:12 by Awa Heredia PA-C) History of colonoscopy Family History Mother Breast cancer Social History (Updated 01/23/25 @ 11:08 by Awa Heredia PA-C) Household Members: Significant Other Housing: Apartment Do you presently have visiting nurse or other home services: No Alcohol intake: current Alcohol intake frequency: a few times a week Alcohol type: hard liquor Patient Tobacco Use Status: Current everyday Tobacco user Tobacco use type: Cigarette Cigarettes Per Day: 7 Years Smoked: (onset 15yo, 1/2ppd x 44yrs, 22pyh) Second Hand Smoke Exposure: No service: No Current occupational status: disabled Assessment & Plan Assessment & Plan (1) Nicotine dependence, cigarettes, uncomplicated: Comment: (onset 15yo, 1/2ppd x 44yrs, 22pyh) Code(s): F17.210 - Nicotine dependence, cigarettes, uncomplicated Category: Medical Plan: - SDM visit completed today in office. - Patient meets criteria for LDCT for lung cancer screening purposes and is asymptomatic. - Smoking cessation counseling offered. Patients can always call [phone]. - Will arrange for a LDCT scan of the chest for screening purposes at [facility]. - Risks, benefits, and alternatives were discussed in detail and the patient agrees to proceed. - Risks discussed include but are not limited to: radiation exposure, anxiety during testing and while awaiting results, false negatives, false positives and possibility of additional intervention such as further imaging or surgical procedures for benign disease. - Benefits are obviously detection of lung cancer at an early stage which can lead to improved outcomes. - Discussed the importance of screening program compliance with adherence to yearly LDCT scan as scheduled - or sooner interval scans for personalized screening regimen. - Discussed follow up plan. Our office will send a letter discussing results and if needed set up phone call and office visit based on CT findings. - Patient educated on results categorization and the management decisions for suspicious findings potentially found on the screening LDCT scan. Any patient with a Lung RADS score of 3 or 4 will be reviewed by a multidisciplinary team at [facility] to form a plan of action in regards to scan findings. - If further work up is warranted for a suspicious lung finding this will be followed by the Lung Cancer Screening program in conjunction with the Thoracic Surgery Department at [facility]. - A copy of the office note and LDCT will be sent to the patient's PCP - as well as documentation on any associated further plans of care. - Incidental findings on LDCT are the PCP's responsibility. These findings are indicated with an S finding on the LDCT Assessment. A note discussing the findings will be sent to the PCP who is then responsible for further management. - All questions answered.? Coding Level of Care Code Lung Cancer Screening G0296 Diagnoses Nicotine dependence, cigarettes, uncomplicated F17.210
--- OUTSIDE RECORDS SUMMARY | 2025-01-23 11:00 | XMS_ITS | Clinical Summary ---
Author Organization [address] [facility] Address [address] [place] [address] Phone Care Team Providers Care Animal Health Technician Name Role Phone AlexisElizabeth curran Primary Care Provider [phone] Allergies No known active allergies Social History Tobacco Use Types Packs/Day Years Used Date Smoking Tobacco: Never Assessed Comments Unknown Sex and Gender Information Value Date Recorded Sex Assigned at Female 10/09/2024 2:38 PM EDT Legal Sex Female 7:08 AM EDT Gender Identity Female 10/09/2024 2:38 PM EDT Sexual Orientation Straight 10/09/2024 2: 38 PM EDT Last Filed Vital Signs Vital Sign Reading Time Taken Comments Blood Pressure - - Pulse - - Temperature - - Respiratory Rate - - Oxygen Saturation - - Inhaled Oxygen Concentration - - Weight 68.5 kg (151 lb) 10/07/2024 9:01 AM EDT Height 170.2 cm (5' 7 ) 10/07/2024 9:01 AM EDT Body Mass Index 23.65 10/07/2024 9:01 AM EDT Plan of Treatment Upcoming Encounters Date Type Department Care Team (Late st Contact Info) Description 02/06/2025 9:00 AM EDT Consult Vascular Surgery - [place] [address] [phone] Levon Aguirre MD 300 [facility] [address] [place] [address] Health Maintenance Due Date Last Done Comments Breast Cancer Screening 1965 Cervical Cancer Screening: Pap Smear 1987 COVID-19 Vaccine (3 - Mixed Product risk series) 07/23/2023 06/25/2023, 07/31/2022 Depression Screening 06/04/2024 Colorectal Cancer Screening: Colonoscopy 10/02/2024 Medicare Annual Wellness Visit 10/02/2024 Social Influencers of Health Screening 10/02/2024 Influenza Vaccine (#1) 2025 , 04/06/2023, 03/10/2022, Additional history exists Hypertension/CHF/CAD Annual BMP Blood Test 09/18/2025 09/18/2024 Cholesterol Screening (Lipid Panel) 02/12/2029 02/13/2024 DTaP,Tdap,and Td Vaccines (4 - Td or Tdap) 02/12/2034 02/13/2024, 02/12/2014, 12/07/2011 Zoster Vaccines Completed 03/18/2021, 01/14/2021 Hepatitis C Screening Completed 10/31/2022 Pneumococcal Vaccine: 50+ Years Completed 11/03/2022, 06/23/2019, 01/18/2011 Hepatitis B Vaccines Completed 04/06/2023, 11/03/2022, 10/05/2022 Hepatitis A Vaccines Aged Out 06/25/2023, 10/06/19 23 No longer eligible based on patient's age to complete this topic HIV Screening Completed 02/13/2024 HIB Vaccines Aged Out No longer eligi [...] to complete this topic RSV Immunization Patients Under 20 months Aged Out No longer eligible based on patient's age to complete this topic Varicella Vaccines Aged Out No longer eligible based on patient's age to complete this topic Insurance AETNA MEDICARE ADVANTAGE MEDICAID - [place] Care Teams Animal Health Technician Relationship Specialty Start Date End Date Elizabeth Ly DO [address] [place] [address] PCP - General Family Medicine 10/02/24
--- OUTSIDE RECORDS SUMMARY | 2025-01-23 11:00 | XMS_ITS | Encounter Summary ---
Author Organization [employer] Address [address] [facility] 7t [place] [address] Care Team Providers Care Meter Installer Name Role Phone Marjan Sams MD Primary Care Provider [phone] Esteban Nice MD Unavailable Ashley Chanel OD Unavailable [phone] Alban Koehler Unavailable Reason for Visit * Reason Onset Date Comments Med Refill 01/21/2024 Encounter Details Date Type Department Care Team (Late st Contact Info) Description 01/21/2024 Telephone [facility] [address] [place] [phone] Marjan Sams MD [address] [place], [place] [phone] Med Refill Social History Tobacco Use Types [...] 5-325 MG tablet To be sent to: [facility] documented in this encounter Plan of Treatment Upcoming Encounters Date Type Department Care Team (Late st Contact Info) Description 02/20/2025 9:30 AM EDT Clinical Support [facility] [address] [place] [phone] Viridiana Hernández RN [address] [place] [address] 03/12/2025 9:30 AM EDT Office Visit [facility] [address] [place] [phone] Marjan Sams MD [address] [place] [address] documented as of this encounter Visit Diagnoses Not on filedocumented in this encounter Additional Health Concerns Assessment Noted Time PHQ-9 Depression Total Score: 0 06/02/20 23 10:28 AM EDT documented as of this encounter Care Teams Meter Installer Relationship Specialty Start Date End Date Marjan Sams MD [address] [place] [address] PCP - General Family Medicine 06/04/18 Esteban Nice MD [address] [place] [address] [address] [place] [address] Rheumatology 05/21/24 Ashley Chanel OD [address] [place] [address] Optometry 05/21/24 Alban Koehler [address] [address] Podiatry 10/08/24 Dea Hewitt MD Rheumatology 10/06/24 documented as of this encounter
== END 2025-01-23 11:44 | disposition home or self-care (01) ==
LOC: HO.HPS 10:56
PROVIDERS: PCP Family Medicine; Referring Provider Family Medicine; Visit Provider Physician Assistant Medical
DX: F17.210 Nicotine dependence, cigarettes, uncomplicated (principal)
CPT/HCPCS: G0296

== ENCOUNTER 2025-01-23 11:08 | Outpatient (REF) | payer MEDICARE, SELFPAY ==
--- NOTE | ~2025-01-23 | CT_ITS ---
CLINICAL HISTORY: F17.210 - Nicotine dependence, cigarettes, uncomplicated CT lung cancer screening (LDCT) Comparison: None provided Technique: Axial CT images of the chest using low-dose technique. Referring provider counseled the patient on shared decision-making for LDCT screening. Additional counseling was provided on smoking cessation. Effective radiation dose total: DLP 30.3 mGycm, CTDIvol 1 mGy. Findings: Lung: There is area of masslike airspace consolidation in the left upper lobe measuring 4.2 x 5.3 x 4.8 cm. Lungs are otherwise clear without additional masses or nodules identified. Central airways are patent. No bronchiectasis, bronchial wall thickening or mucous plugging. Normal heart size. No pericardial effusion. Moderate multivessel coronary artery calcifications. Calcified but nonaneurysmal thoracic aorta. Normal caliber central pulmonary arteries. Mildly enlarged left axillary and few mediastinal and left hilar lymph nodes. No acute findings within visualized lower neck. No acute findings within visualized upper abdomen. No lytic or sclerotic osseous lesions. Impression: 1. Spiculated masslike consolidation in the left upper lobe concerning for neoplasm until proven otherwise. Consider further follow-up with PET-CT or tissue sampling. Correlation with patient's symptoms and clinical history for possible infection should also be considered and at minimum, short-term follow-up with CT in 1-2 months should be considered to assess for stability/evolution of these findings. 2. Mild left axillary and mediastinal lymphadenopathy, indeterminate and could be metastatic or reactive to the above. 3. Additional findings as above. Category 1: Normal; continue annual screening Category 2: Benign appearance or behavior, continue annual screening Category 3: Probably benign, [address] recommended Category 4A: Suspicious, [address] recommended; may consider PET/CT Category 4B: Suspicious, Additional diagnostics and/or tissue sampling recommended Category 4X: Suspicious, Additional diagnostics and/or tissue sampling recommended Category 0: Recalls (incomplete screen due to Incomplete coverage, Noise, Respiratory motion, Expiration, Obscured by acute abnormality) This document has been electronically signed by: Clinton Wen MD on 01/24/2025 19:42:52
== END 2025-01-23 11:09 | disposition home or self-care (01) ==
LOC: HO.CT 11:08
PROVIDERS: PCP Family Medicine; Visit Provider Nurse Practitioner Family
DX: Z12.2 Encounter for screening for malignant neoplasm of respiratory organs (principal); F17.210 Nicotine dependence, cigarettes, uncomplicated
CPT/HCPCS: 71271; G0296

== ENCOUNTER → 2025-01-23 11:09 | Outpatient (BNV) | payer MEDICARE, SELFPAY | PROVIDERS: PCP Family Medicine; Visit Provider Radiology Diagnostic Radiology | DX: Z12.2 Encounter for screening for malignant neoplasm of respiratory organs (principal); Z87.891 Personal history of nicotine dependence | CPT/HCPCS: 71271 ==

== ENCOUNTER 2025-02-03 09:58 | Outpatient (AMB) | payer MEDICARE, SELFPAY ==
[2025-02-03 10:05] VITALS: BP 134/72; PULSE 69; O2SAT 98; BMI 26.9
--- NOTE | 2025-02-03 10:05 | A.OFFVIS_ITS ---
Vital Signs 02/03/25 10:05 Height 5 ft 2 in Weight 147 lb BMI 26.9 BP 134/72 Blood Pressure Location Rt brachial Position Sitting Pulse 69 Pulse Source Pulse Oximeter Pulse Oximetry (%) 98 Oxygen Delivery Method Room Air Intake Visit Reasons: Abnormal CT Lung Screening Allergies No Known Allergies Allergy (Verified 10/03/24 13:00) HPI HPI Abnormal CT Lung Screening: Details: 59-year-old lady, active 30+ pack-year smoker, referred from lung cancer screening program after lung cancer screening CT chest demonstrated left-sided pulmonary mass. Patient denies any dyspnea on exertion, but does complain of unintended weight loss of approximately 20 lb over the last several months. She denies personal or family history of lung disease. She previously was employed in [employer]. She has been using Breo and albuterol MDI with no residual dyspnea. She denies recent exacerbations. [facility] Medical History (Updated 01/30/25 @ 09:35 by Awa Heredia PA-C) History of DVT (deep vein thrombosis) (~2014) Systemic lupus erythematosus (~2006) Long-term use of hydroxychloroquine Osteopenia (~2024) COPD (chronic obstructive pulmonary disease) Asthma Obstructive sleep apnea Nicotine dependence, cigarettes, uncomplicated Hyperplastic colon polyp Surgical History (Updated 12/08/24 @ 11:12 by Awa Heredia PA-C) History of colonoscopy Family History Mother Breast cancer Social History (Updated 01/23/25 @ 11:08 by Awa Heredia PA-C) Household Members: Significant Other Housing: Apartment Do you presently have visiting nurse or other home services: No Alcohol intake: current Alcohol intake frequency: a few times a week Alcohol type: hard liquor Patient Tobacco Use Status: Current everyday Tobacco user Tobacco use type: Cigarette Cigarettes Per Day: 7 Years Smoked: (onset 15yo, 1/2ppd x 44yrs, 22pyh) Second Hand Smoke Exposure: No service: No Current occupational status: disabled Review of Systems Const Denies daytime sleepiness, Denies excessive sweating, Denies fatigue, Denies fever(s), Denies lethargy, Denies malaise, Denies night sweats, Denies snoring and Reports weight loss Eyes Denies blurry vision and Denies itchy eyes ENT Denies nasal congestion, Denies post nasal drip, Denies sinus pain, Denies sinus pressure and Denies other ( Thrush) Card Denies chest pain, Denies pedal edema, Denies dyspnea, Denies orthopnea and Denies paroxysmal nocturnal dyspnea Resp Denies cough, Denies hemoptysis, Denies excessive phlegm production, Denies dyspnea, Denies snoring and Denies wheezing GI Denies abdominal pain and Denies heartburn Musc Denies myalgias, Denies arthralgias and Denies joint swelling Skin/Breast Denies rash Neuro Denies memory loss and Denies seizure-like activity Psych Denies abnormal sleep pattern, Denies anxiety and Denies memory loss Endo Denies excessive sweating, Denies fatigue and Denies heat intolerance Jeremias/Lymph Denies easy bruising Aller/Immun Denies itchy eyes, Denies seasonal rhinorrhea and Denies wheezing Physical Exam Vital Signs: Last Vital Signs Pulse 69 02/03/25 10:05 BP 134/72 02/03/25 10:05 Pulse Ox 98 02/03/25 10:05 Oxygen Delivery Method Room Air 02/03/25 10:05 BMI result Body Mass Index 26.9 Const General: no acute distress and alert Nutritional Appearance: not obese Orientation/consciousness: Other orientation findings ( oriented) HEENT Head: Yes atraumatic Eyes General: appearance normal, both eyes and all related structures Sclerae: sclerae normal EOM: EOMs intact bilaterally Neck Neck: Yes supple Lymphatic: no lymphadenopathy noted Resp Effort & Inspection: normal respiratory effort and no use of accessory muscles Auscultation: clear to auscultation bilaterally Cardio Rate: regular rate Rhythm: regular rhythm Heart sounds: no gallops, no murmurs and no rubs Skin General skin exam: other ( warm) Extrem General: No clubbing, No cyanosis and No edema Assessment & Plan Assessment & Plan (1) COPD (chronic obstructive pulmonary disease): Comment: MODERATELY SEVERE, RELATIVELY CONTROLLED AT THIS TIME Code(s): J44.9 - Chronic obstructive pulmonary disease, unspecified Category: Medical Plan: Well controlled at this time. Continue current regimen of Breo and albuterol MDI. (2) Mass of upper lobe of left lung: Comment: Spiculated mass-like consolidation in SIDDHARTHA measuring 4.2 x 5.3 x 4.8 cm - noted on 01/2025 LDCT --> plan is for PFTs and PET and referral to Pulm Code(s): R91.8 - Other nonspecific abnormal finding of lung field Category: Medical Plan: Left lung mass. Will obtain PET-CT, PFT, and transcutaneous biopsy. Orders: Orders PET CT fusion whole body Today R91.8 - Other nonspecific abnormal finding of lung field CT biopsy lung LT Today R91.8 - Other nonspecific abnormal finding of lung field Coding Level of Care Code New Pt Level 4 (05939) Diagnoses COPD (chronic obstructive pulmonary disease) J44.9 Mass of upper lobe of left lung R91.8
--- OUTSIDE RECORDS SUMMARY | 2025-02-03 11:16 | XMS_ITS | Encounter Summary ---
Author Organization [employer] Address [address] [facility] 7t [place] [address] Care Team Providers Care Physician Office Assistant Name Role Phone Marjan Sams MD Primary Care Provider [phone]- [phone] Esteban Nice MD Unavailable Ashley Chanel OD Unavailable [phone] Alban Koehler Unavailable Encounter Details Date Type Department Care Team (Late st Contact Info) Description 06/29/2022 Abstract [facility] [address] [place] [address] Marjan Sams MD [address] [place] [address] Social History Tobacco Use Types Packs/Day Years [...] Description 02/20/2025 9:30 AM EDT Clinical Support [facility] [address] [place] [address] Viridiana Hernández RN 505 [place] [address] 03/12/2025 9:30 AM EDT Office Visit [facility] [address] [place] [address], [place] [address] Marjan Sams MD [address] [place] [address] documented as of this encounter Procedures Procedure [...] on filedocumented in this encounter Care Teams Physician Office Assistant Relationship Specialty Start Date End Date Marjan Sams MD [address] [place] [address] PCP - General Family Medicine 06/04/18 Esteban Nice MD [address] [place] [address] Rheumatology 05/21/24 Ashley Chanel OD 180 [place] [address] Optometry 05/21/24 Alban Koehler [address] [address] Podiatry 10/08/24 Dea Hewitt MD Rheumatology 10/06/24 documented as of this encounter
--- OUTSIDE RECORDS SUMMARY | 2025-02-03 11:16 | XMS_ITS | Encounter Summary ---
Author Organization [employer] Address [address] [facility] 7t [place] [address] Care Team Providers Care Senior Enterprise Architect Name Role Phone Marjan Sams MD Primary Care Provider [phone]- [phone] Esteban Nice MD Unavailable Ashley Chanel OD Unavailable [phone] Alban Koehler Unavailable Reason for Visit * Reason Onset Date Comments Med Refill 02/21/2024 Encounter Details Date Type Department Care Team (Late st Contact Info) Description 02/21/2024 Telephone [facility] [address] [place] [address] [phone] Marjan Sams MD [address] [place], [place] [phone] Med Refill Social History Tobacco Use Types [...] 5-325 MG tablet To be sent to: [facility]/pharmacy #[address] [place] [address] - [address] [place] [address] documented in this encounter Plan of Treatment Upcoming Encounters Date Type Department Care Team (Late st Contact Info) Description 02/20/2025 9:30 AM EDT Clinical Support [facility] [address] [place] [address] Viridiana Hernández RN 505 [place] [address] 03/12/2025 9:30 AM EDT Office Visit [facility] [address] [place] [address] Marjan Sams MD [address] [place] [address] documented as of this encounter Visit Diagnoses Not on filedocumented in this encounter Additional Health Concerns Assessment Noted Time PHQ-9 Depression Total Score: 4 02/13/20 24 9:45 AM EDT documented as of this encounter Care Teams Senior Enterprise Architect Relationship Specialty Start Date End Date Marjan Sams MD [address] [place] [address] PCP - General Family Medicine 06/04/18 Esteban Nice MD [address] [place] [address] [address] [place] [address] Rheumatology 05/21/24 Ashley Chanel OD 180 [place] [address] Optometry 05/21/24 Alban Koehler [address] [address] Podiatry 10/08/24 Dea Hewitt MD Rheumatology 10/06/24 documented as of this encounter
--- OUTSIDE RECORDS SUMMARY | 2025-02-03 11:16 | XMS_ITS | Encounter Summary ---
Author Organization [employer] Address 75 [facility] 7t [place] [address] Care Team Providers Care Anvil Worker Name Role Phone Marjan Sams MD Primary Care Provider [phone]- [phone] Esteban Nice MD Unavailable Ashley Chanel OD Unavailable [phone] Alban Koehler Unavailable Reason for Visit * Reason Onset Date Comments Uber Set-up 01/23/2024 Encounter Details Date Type Department Care Team (Late st Contact Info) Description 01/23/2024 Telephone [facility] 230 [place], [place] [phone] Marjan Sams MD [address] [place] [address] Uber Set-up Social History Tobacco Use Types [...] request a uber set-up for 01/29 appt play writer did confirm address and call back number documented in this encounter Plan of Treatment Upcoming Encounters Date Type Department Care Team (Late st Contact Info) Description 02/20/2025 9:30 AM EDT Clinical Support [facility] [address] [place] [address] Viridiana Hernández RN 505 [place] [address] 03/12/2025 9:30 AM EDT Office Visit [facility] [address] [place] [address] Marjan Sams MD [address] [place] [address] documented as of this encounter Visit Diagnoses Not on filedocumented in this encounter Additional Health Concerns Assessment Noted Time PHQ-9 Depression Total Score: 0 11/04/19 10:28 AM EDT documented as of this encounter Care Teams Anvil Worker Relationship Specialty Start Date End Date Latrell, MD Marjan [address] [place] [address] PCP - General Family Medicine 06/04/18 Esteban Nice MD [address] [place] [address] [address] [place] [address] Rheumatology 05/21/24 Ashley Chanel OD 180 [place] [address] Optometry 05/21/24 Alban Koehler [address] [address] Podiatry 10/08/24 Dea Hewitt MD Rheumatology 10/06/24 documented as of this encounter
--- OUTSIDE RECORDS SUMMARY | 2025-02-03 11:16 | XMS_ITS | Encounter Summary ---
Author Organization [employer] Address 75 [facility] 7t [place] [address] Care Team Providers Care Trailer Body Assembler Name Role Phone Marjan Sams MD Primary Care Provider [phone] Esteban Nice MD Unavailable Ashley Chanel OD Unavailable [phone] Alban Koehler Unavailable Reason for Visit * Reason Onset Date Comments Med Refill 01/19/2023 Encounter Details Date Type Department Care Team (Late st Contact Info) Description 01/19/2023 Telephone [facility] [address] [place] [address] [phone] Marjan Sams MD [address] [place], [place] [phone] Med Refill Social History Tobacco Use Types [...] (Percocet) 5-325 MG tablet Please sent to [facility]/pharmacy #[id number] - [place], [place] - [address] [facility] documented in this encounter Plan of Treatment Upcoming Encounters Date Type Department Care Team (Late st Contact Info) Description 02/20/2025 9:30 AM EDT Clinical Support [facility] [address] [place] [address] Viridiana Hernández RN 505 [place] [address] 03/12/2025 9:30 AM EDT Office Visit [facility] [address] [place] [address] Marjan Sams MD [address] [place] [address] documented as of this encounter Visit Diagnoses Not on filedocumented in this encounter Additional Health Concerns Assessment Noted Time PHQ-9 Depression Total Score: 0 11/04/19 23 10:28 AM EDT documented as of this encounter Care Teams Trailer Body Assembler Relationship Specialty Start Date End Date Marjan Sams MD [address] [place] [address] PCP - General Family Medicine 06/04/18 Esteban Nice MD [address] [place] [address] [place] [address] Rheumatology 05/21/24 Ashley Chanel OD 180 [place] [address] Optometry 05/21/24 Alban Koehler [address] [address] Podiatry 10/08/24 Dea Hewitt MD Rheumatology 10/06/24 documented as of this encounter
--- OUTSIDE RECORDS SUMMARY | 2025-02-03 11:16 | XMS_ITS | Encounter Summary ---
Author Organization [employer] Address 75 [facility] 7t [place] [address] Care Team Providers Care In Home Sales Consultant Name Role Phone Marjan Sams MD Primary Care Provider [phone]- [phone] Esteban Nice MD Unavailable Ashley Chanel OD Unavailable [phone] Alban Koehler Unavailable Reason for Visit * Reason Onset Date Comments Med Refill 01/21/2024 Encounter Details Date Type Department Care Team (Late st Contact Info) Description 01/21/2024 Telephone [facility] [address] [place] [address] [phone] Marjan Sams MD 230 [place], [place] [phone] Med Refill Social History Tobacco Use Types [...] 5-325 MG tablet To be sent to: [facility] documented in this encounter Plan of Treatment Upcoming Encounters Date Type Department Care Team (Late st Contact Info) Description 02/20/2025 9:30 AM EDT Clinical Support [facility] [address] [place] [address] Viridiana Hernández RN 505 [place] [address] 03/12/2025 9:30 AM EDT Office Visit [facility] [address] [place] [address] Marjan Sams MD [address] [place] [address] documented as of this encounter Visit Diagnoses Not on filedocumented in this encounter Additional Health Concerns Assessment Noted Time PHQ-9 Depression Total Score: 0 06/02/20 23 10:28 AM EDT documented as of this encounter Care Teams In Home Sales Consultant Relationship Specialty Start Date End Date Marjan Sams MD [address] [place] [address] PCP - General Family Medicine 06/04/18 Esteban Nice MD [address] [place] [address] [address] [place] [address] Rheumatology 05/21/24 Ashley Chanel OD 180 [place] [address] Optometry 05/21/24 Alban Koehler [address] [address] Podiatry 10/08/24 Dea Hewitt MD Rheumatology 10/06/24 documented as of this encounter
--- OUTSIDE RECORDS SUMMARY | 2025-02-03 11:16 | XMS_ITS | Encounter Summary ---
Author Organization [employer] Address 75 [facility] 7t [place] [address] Care Team Providers Care Director Of Exhibit Development Name Role Phone Marjan Sams MD Primary Care Provider [phone]- [phone] Esteban Nice MD Unavailable Ashley Chanel OD Unavailable [phone] Alban Koehler Unavailable Reason for Visit * Reason Comments Med Refill Encounter Details Date Type Department Care Team (Late st Contact Info) Description 10/19/2023 Refill [facility] 230 [place] [address] Lluvia Mendoza MD 230 [place] [address] History of DVT (deep vein thrombosis) Social [...] Description 02/20/2025 9:30 AM EDT Clinical Support [facility] [address] [place] [address] Viridiana Hernández, KIMBERLY 505 [place] [address] 03/12/2025 9:30 AM EDT Office Visit [address] [address] Marjan Sams MD [address] [place] [address] documented as of this encounter Visit Diagnoses Diagnosis History of DVT (deep vein thrombosis) documented in this encounter Additional Health Concerns Assessment Noted Time PHQ-9 Depression Total Score: 0 11/04/19 23 10:28 AM EDT documented as of this encounter Care Teams Director Of Exhibit Development Relationship Specialty Start Date End Date Marjan Sams MD [address] [place] [address] PCP - General Family Medicine 06/04/18 Esteban Nice MD [address] [place] [address] Rheumatology 05/21/24 Ashley Chanel OD 180 [place] [address] Optometry 05/21/24 Alban Koehler [address] [address] Podiatry 10/08/24 Dea Hewitt MD Rheumatology 10/06/24 documented as of this encounter
--- OUTSIDE RECORDS SUMMARY | 2025-02-03 11:17 | XMS_ITS | Encounter Summary ---
Author Organization [employer] Address [address] [facility] [address] 7[address] [place] [address] Care Team Providers Care Quality Assurance Qa Lab Technician Name Role Phone Marjan Sams MD Primary Care Provider [phone] Esteban Nice MD Unavailable Ashley Chanel OD Unavailable Alban Koehler Unavailable Reason for Visit * Reason Onset Date Comments Call Back Request 10/14/2024 Encounter Details Date Type Department Care Team (Late st Contact Info) Description 10/14/2024 Telephone [facility] [address] [place] [address] [phone] Marjan Sams MD 230 [place], [place] [phone] Call Back Request (/) Social History Tobacco Use Types Packs/Day Years [...] encounter Miscellaneous Notes * Telephone Encounter - Marika Rai RN - 10/14/2024 12:04 PM EDT Called [facility] Centralized scheduling who said that the pt has a DEXA scan scheduled for 10/29/24 but noultrasounds today or otherwise. Nothing noted in chart. Called pt and informed her of this, pt unaware of US ordered by specialist. Advised her if anything else comes up regarding this will let her know. Pt verbalized understanding. Printed Circuit Board Designer found note in chart from xray of the spine ordered by Dr Koehler (podiatry) that recommended follow up Vascular US abdominal aorta aneurysm (AAA) screening. Called pt back to advise of this and gave her phone number to call to clarify with Dr Koehler and to reschedule. [phone] . Pt verbalized understanding, to call that office now. * Telephone Encounter - Cee Robertsonjesus Natan - 10/14/2024 8:10 AM EDT Tc from pt stating received a call from a facility stating pt has an appointment today for an ultrasound. Pt states doesn't know where he's from and would like clarification from the nurses. Upcoming appointments 10/29 Bone density test, pt stated they said ultrasound. documented in this encounter Plan of Treatment Upcoming Encounters Date Type Department Care Team (Late st Contact Info) Description 02/20/2025 9:30 AM EDT Clinical Support [address] [address] Viridiana Hernández RN 505 [place] [address] 03/12/2025 9:30 AM EDT Office Visit [facility] [address] [place] [address] Marjan Sams MD [address] [place] [address] documented as of this encounter Visit Diagnoses Not on filedocumented in this encounter Additional Health Concerns Assessment Noted Time PHQ-9 Depression Total Score: 4 02/13/20 24 9:45 AM EDT documented as of this encounter Care Teams Quality Assurance Qa Lab Technician Relationship Specialty Start Date End Date Marjan Sams MD [address] [place] [address] PCP - General Family Medicine 06/04/18 Esteban Nice MD [address] [place] [address] Rheumatology 05/21/24 Ashley Chanel OD 180 [place] [address] Optometry 05/21/24 Alban Koehler [address] [address] Podiatry 10/08/24 Dea Hewitt MD Rheumatology 10/06/24 documented as of this encounter
--- OUTSIDE RECORDS SUMMARY | 2025-02-03 11:17 | XMS_ITS | Encounter Summary ---
Author Organization [employer] Address 75 [facility] 7t [place] [address] Care Team Providers Care Printer Floor Covering Assistant Name Role Phone Marjan Sams MD Primary Care Provider [phone]- [phone] Esteban Nice MD Unavailable Ashley Chanel OD Unavailable [phone] Alban Koehler Unavailable Reason for Visit * Reason Onset Date Comments Nurse Triage 09/18/2023 Encounter Details Date Type Department Care Team (Late st Contact Info) Description 09/18/2023 Telephone [facility] [address] [place] [address] [phone] Marjan Sams MD 230 [place], [place] [phone] Nurse Triage Social History Tobacco Use Types [...] Description 02/20/2025 9:30 AM EDT Clinical Support [facility] [address] [place] [address] Viridiana Hernández RN 505 [place] [address] 03/12/2025 9:30 AM EDT Office Visit [facility] [address] [place] [address] Marjan Sams MD [address] [place] [address] documented as of this encounter Visit Diagnoses Not on filedocumented in this encounter Additional Health Concerns Assessment Noted Time PHQ-9 Depression Total Score: 0 11/04/19 10:28 AM EDT documented as of this encounter Care Teams Printer Floor Covering Assistant Relationship Specialty Start Date End Date Ob[place], MD Marjan [address] [place] [address] PCP - General Family Medicine 06/04/18 Esteban Nice MD [address] [place] [address] [address] [place] [address] Rheumatology 05/21/24 Ashley Chanel OD 180 [place] [address] Optometry 05/21/24 Alban Koehler [address] [address] Podiatry 10/08/24 Dea Hewitt MD Rheumatology 10/06/24 documented as of this encounter
--- OUTSIDE RECORDS SUMMARY | 2025-02-03 11:17 | XMS_ITS | Encounter Summary ---
Author Organization [employer] Address 75 [facility] 7t [place] [address] Care Team Providers Care Numerical Control Nesting Operator Name Role Phone Marjan Sams MD Primary Care Provider [phone]- [phone] Esteban Nice MD Unavailable Ashley Chanel OD Unavailable [phone] Alban Koehler Unavailable Reason for Visit * Reason Onset Date Comments Med Refill 10/17/2024 Encounter Details Date Type Department Care Team (Late st Contact Info) Description 10/17/2024 Telephone [facility] [address] [place] [address] [phone] Marjan Sams MD 230 [place] [address] Med Refill Social History Tobacco Use Types [...] * Telephone Encounter - Cee Gama - 10/17/2024 8:07 AM EDT TC from pt requesting medication refill. Medications needing refill : oxyCODONE-acetaminophen (Percocet) 5-325 MG tablet To be sent to: [facility]/pharmacy #[id number] [place] [address] - [address] [place] [address] documented in this encounter Plan of Treatment Upcoming Encounters Date Type Department Care Team ([facility] st Contact Info) Description 02/20/2025 9:30 AM EDT Clinical Support [facility] 230 [place], [place] [phone] Viridiana Hernández, RN 505 [place] [address] 03/12/2025 9:30 AM EDT Office Visit [facility] 230 [place] [address] Marjan Sams MD 230 [place] [address] documented as of this encounter Visit Diagnoses Not on filedocumented in this encounter Additional Health Concerns Assessment Noted Time PHQ-9 Depression Total Score: 4 02/13/20 24 9:45 AM EDT documented as of this encounter Care Teams Numerical Control Nesting Operator Relationship Specialty Start Date End Date Marjan Sams MD 230 [place] [address] PCP - General Family Medicine 06/04/18 Esteban Nice MD [address] [place] [address] Rheumatology 05/21/24 Ashley Chanel OD 180 [place] [address] Optometry 05/21/24 Alban Koehler [address] [address] Podiatry 10/08/24 Dea Hewitt MD Rheumatology 10/06/24 documented as of this encounter
--- OUTSIDE RECORDS SUMMARY | 2025-02-03 11:17 | XMS_ITS | Encounter Summary ---
Author Organization [employer] Address 75 [facility] 7t [place] [address] Care Team Providers Care Grinder Machine Setter Name Role Phone Marjan Sams MD Primary Care Provider [phone]- [phone] Esteban Nice MD Unavailable Ashley Chanel OD Unavailable [phone] Alban Koehler Unavailable Reason for Visit * Reason Comments Med Refill Encounter Details Date Type Department Care Team (Late st Contact Info) Description 07/25/2023 Refill [facility]INE 230 [place] [address] Marjan Sams MD 230 [place] [address] Arthritis of both knees Social History Tobacco [...] Description 02/20/2025 9:30 AM EDT Clinical Support [facility] MEDICINE [address] [place] [address] Viridiana Hernández, KIMBERLY 505 [place] [address] 03/12/2025 9:30 AM EDT Office Visit [facility] MEDICINE [address] [place] [address] Marjan Sams MD [address] [place] [address] documented as of this encounter Visit Diagnoses Diagnosis Arthritis of both knees documented in this encounter Additional Health Concerns Assessment Noted Time PHQ-9 Depression Total Score: 0 11/04/19 23 10:28 AM EDT documented as of this encounter Care Teams Grinder Machine Setter Relationship Specialty Start Date End Date Marjan Sams MD [address] [place] [address] PCP - General Family Medicine 06/04/18 Esteban Nice MD [address] [place] [address] Rheumatology 05/21/24 Ashley Chanel OD 180 [place] [address] Optometry 05/21/24 Alban Koehler [address] [address] Podiatry 10/08/24 Dea Hewitt MD Rheumatology 10/06/24 documented as of this encounter
--- OUTSIDE RECORDS SUMMARY | 2025-02-03 11:17 | XMS_ITS | Encounter Summary ---
Author Organization [employer] Address [address] [facility] [address] 7t [place] [address] Care Team Providers Care Equipment Cleaner And Tester Name Role Phone Marjan Sams MD Primary Care Provider [phone] Estebna Nice MD Unavailable Ashley Chanel OD Unavailable [phone] Alban Koehler Unavailable Encounter Details Date Type Department Care Team (Late st Contact Info) Description 03/22/2023 Abstract [facility] MEDICINE 230 [place] [address] Marjan Sams MD 230 [place] [address] Preventative health care; Osteoarthritis of knee, unspecified [...] 9:30 AM EDT Clinical Support [facility] MEDICINE [address] [place] [address] Viridiana Hernández RN 505 [place] [address] 03/12/2025 9:30 AM EDT Office Visit [facility] MEDICINE [address] [place] [address] Marjan Sams MD [address] [place] [address] documented as of this encounter Visit Diagnoses Diagnosis Preventative health care Routine general medical examination at a health care facility Osteoarthritis of knee, unspecified laterality, unspecified osteoarthritis type documented in this encounter Additional Health Concerns Assessment Noted Time PHQ-9 Depression Total Score: 0 11/04/19 23 10:28 AM EDT documented as of this encounter Care Teams Equipment Cleaner And Tester Relationship Specialty Start Date End Date Marjan Sams MD [address] [place] [address] PCP - General Family Medicine 06/04/18 Esteban Nice MD [address] [place] [address] Rheumatology 05/21/24 Ashley Chanel OD 180 [place] [address] Optometry 05/21/24 Alban Koehler [address] [address] Podiatry 10/08/24 Dea Hewitt MD Rheumatology 10/06/24 documented as of this encounter
--- OUTSIDE RECORDS SUMMARY | 2025-02-03 11:17 | XMS_ITS | Encounter Summary ---
Author Organization [employer] Address [address] [facility] 7t [place] [address] Care Team Providers Care Mounting Machine Operator Name Role Phone Marjan Sams MD Primary Care Provider [phone] Esteban Nice MD Unavailable Ashley Chanel OD Unavailable [phone] Alban Koehler Unavailable Reason for Visit * Reason Onset Date Comments PT1 10/09/2024 Encounter Details Date Type Department Care Team (Late st Contact Info) Description 10/09/2024 Telephone [facility] [address] [place] [address] [phone] Marjan Sams MD 230 [place], [place] [phone] PT1 Social History Tobacco Use Types Packs/Day Years [...] your housing situation today? I have lynda sing 02/13/[address] you li [...] * Telephone Encounter - Cee Gama - 10/09/2024 3:09 PM EDT Patient calling requesting PT1 Home Address verified: Y/N: Yes Provider name or facility name: [address] [place] [address] [facility] Escort needed: Y/N: No Do you have a wheelchair: Y/N: No If yes- Manual or electric: N/A Visits: (2x monthly) documented in this encounter Plan of Treatment Upcoming Encounters Date Type Department Care Team (Late st Contact Info) Description 02/20/2025 9:30 AM EDT Clinical Support [facility] 230 [place] [address] Viridiana Hernández, RN 505 [place] [address] 03/12/2025 9:30 AM EDT Office Visit [facility] 230 [place] [address] Marjan Sams MD 230 [place] [address] documented as of this encounter Visit Diagnoses Not on filedocumented in this encounter Additional Health Concerns Assessment Noted Time PHQ-9 Depression Total Score: 4 02/13/20 24 9:45 AM EDT documented as of this encounter Care Teams Mounting Machine Operator Relationship Specialty Start Date End Date Marjan Sams MD 230 [place] [address] PCP - General Family Medicine 06/04/18 Esteban Nice MD [address] [place] [address] Rheumatology 05/21/24 Ashley Chanel OD 180 [place] [address] Optometry 05/21/24 Alban Koehler [address] [address] Podiatry 10/08/24 Dea Hewitt MD Rheumatology 10/06/24 documented as of this encounter
--- OUTSIDE RECORDS SUMMARY | 2025-02-03 11:17 | XMS_ITS | Encounter Summary ---
Author Organization [employer] Address 75 [facility] 7t [place] [address] Care Team Providers Care Overnight Cashier Name Role Phone Marjan Sams MD Primary Care Provider [phone]- [phone] Esteban Nice MD Unavailable Ashley Chanel OD Unavailable [phone] Alban Koehler Unavailable Reason for Visit * Reason Onset Date Comments Med Refill 08/20/2024 Encounter Details Date Type Department Care Team (Late st Contact Info) Description 08/20/2024 Telephone [facility]INE [address] [place] [address] [phone] Marjan Sams MD 230 [place], [place] [phone] Med Refill Social History Tobacco Use Types [...] MG tablet To be sent to: [facility]/pharmacy #[address] [place] [address] - [address] [place] [address] documented in this encounter Plan of Treatment Upcoming Encounters Date Type Department Care Team (Late st Contact Info) Description 02/20/2025 9:30 AM EDT Clinical Support [facility] MED[facility]INE [address] [place] [address] Viridiana Hernández RN 505 [place] [address] 03/12/2025 9:30 AM EDT Office Visit [facility] [address] [place] [address] Marjan Sams MD [address] [place] [address] documented as of this encounter Visit Diagnoses Not on filedocumented in this encounter Additional Health Concerns Assessment Noted Time PHQ-9 Depression Total Score: 4 02/13/20 24 9:45 AM EDT documented as of this encounter Care Teams Overnight Cashier Relationship Specialty Start Date End Date Marjan Sams MD 230 [place] [address] PCP - General Family Medicine 06/04/18 Esteban Nice MD [address] [place] [address] 402 [place] [address] Rheumatology 05/21/24 Ashley Chanel OD 180 [place] [address] Optometry 05/21/24 Alban Koehler [address] [address] Podiatry 10/08/24 Dea Hewitt MD Rheumatology 10/06/24 documented as of this encounter
--- OUTSIDE RECORDS SUMMARY | 2025-02-03 11:17 | XMS_ITS | Encounter Summary ---
Author Organization [employer] Address 75 [facility] 7t [place] [address] Care Team Providers Care Canvass Manager Name Role Phone Marjan Sams MD Primary Care Provider [phone]- [phone] Esteban Nice MD Unavailable Ashley Chanel OD Unavailable [phone] Alban Koehler Unavailable Reason for Visit * Reason Comments Med Refill Encounter Details Date Type Department Care Team (Late st Contact Info) Description 12/19/2024 Refill [facility] MEDICINE [address] [place] [address] Marjan Sams MD 230 [place] [address] History of DVT (deep vein thrombosis) Social [...] Description 02/20/2025 9:30 AM EDT Clinical Support [facility] MEDICINE [address] [place] [address] Viridiana Hernández RN 505 [place] [address] 03/12/2025 9:30 AM EDT Office Visit [facility] MED[facility]INE [address] [place] [address] Marjan Sams MD [address] [place] [address] documented as of this encounter Visit Diagnoses Diagnosis History of DVT (deep vein thrombosis) documented in this encounter Additional Health Concerns Assessment Noted Time PHQ-9 Depression Total Score: 4 02/13/20 24 9:45 AM EDT documented as of this encounter Care Teams Canvass Manager Relationship Specialty Start Date End Date Marjan Sams MD 230 [place] [address] PCP - General Family Medicine 06/04/18 Esteban Nice MD [address] [place] [address] [address] [place] [address] Rheumatology 05/21/24 Ashley Chanel OD 180 [place] [address] Optometry 05/21/24 Alban Koehler [address] [address] Podiatry 10/08/24 Dea Hewitt MD Rheumatology 10/06/24 documented as of this encounter
--- OUTSIDE RECORDS SUMMARY | 2025-02-03 11:17 | XMS_ITS | Encounter Summary ---
Author Organization [employer] Address [address] [facility] [address] 7[address] [place] [address] Care Team Providers Care Singe Winder Name Role Phone Marjan Sams MD Primary Care Provider [phone]- [phone] Esteban Nice MD Unavailable Ashley Chanel OD Unavailable [phone] Alban Koehler Unavailable Reason for Visit * Reason Onset Date Comments Med Refill 10/20/2024 Encounter Details Date Type Department Care Team (Late st Contact Info) Description 10/20/[address] [facility] [address] [place] [address] Marjan Sams MD [address] [place] [address] Arthritis of both knees Social History Tobacco [...] Description 02/20/2025 9:30 AM EDT Clinical Support [facility] MEDICINE [address] [place] [address] Viridiana Hernández RN 505 [place] [address] 03/12/2025 9:30 AM EDT Office Visit [facility] MEDICINE [address] [place] [address] Marjan Sams MD 230 [place] [address] documented as of this encounter Visit Diagnoses Diagnosis Arthritis of both knees documented in this encounter Additional Health Concerns Assessment Noted Time PHQ-9 Depression Total Score: 4 02/13/20 24 9:45 AM EDT documented as of this encounter Care Teams Singe Winder Relationship Specialty Start Date End Date Marjan Sams MD 230 [place] [address] PCP - General Family Medicine 06/04/18 Esteban Nice MD [address] [place] [address] [address] [place] [address] Rheumatology 05/21/24 Ashley Chanel OD 180 [place] [address] Optometry 05/21/24 Alban Koehler 175 [facility] [address] [place] [address] Podiatry 10/08/24 Dea Hewitt MD Rheumatology 10/06/24 documented as of this encounter
--- OUTSIDE RECORDS SUMMARY | 2025-02-03 11:17 | XMS_ITS | Clinical Summary ---
Author Organization [employer] Address [address] [facility] [address] [place] [address] Care Team Providers Care Dip Lube Operator Name Role Phone Marjan Sams MD Primary Care Provider [phone] Esteban Nice MD Unavailable Ashley Chanel OD Unavailable [phone] Alban Koehler Unavailable Allergies No known active allergies Medications levalbuterol (Xopenex) 1.25 MG/3ML nebulizer solutionIndica tions:Mild asthma with acute exacerbation, unspecified whether persistent Use 3 ml po q 4 hours prn 300 mL 3 08/11/19 23 Active hydroxychloroq uine (Plaquenil) 200 MG tabletIndicati [...] 30 capsule 3 08/29/19 25 2025 Active nicotine (Nicoderm, Step 1) 21 MG/24HR patchIndicatio ns:Nicotine Dependence Place 1 patch on the skin 1 (one) time each day at the same time. 30 patch 3 10/08/19 25 Active nicotine (Nicoderm, Step 2) 14 MG/24HR patchIndicatio ns:Nicotine Dependence Place 1 patch on the skin 1 (one) time each day at the same time. 30 patch 3 10/08/19 25 Active nicotine polacrilex (Nicorette) 4 MG gumIndications :Tobacco dependence syndrome Chew 1 each (4 mg) if needed for smoking cessation. 100 each 10/08/19 25 Active oxyCODONE-acet aminophen (Percocet) 5-325 MG tabletIndicati ons:Arthritis of both knees Take 1 tablet by mouth every 12 (twelve) hours if needed for severe pain. 56 tablet 01/16/20 25 Active oxyCODONE-acet aminophen (Percocet) 5-325 MG tabletIndicati ons:Arthritis of both knees Take 1 tablet by mouth every 12 (twelve) hours if needed for severe pain. 56 tablet 12/19/19 25 2024 Discontinued(R eorder (will not trigger notification to Pharmacy)) Active Problems Patient Care Coordination No te Formatting of this note migh t be different from the original. C3/CM Millie Whiteside RN Problem Noted Date Diagnosed Date Abnormal CT scan, lung 01/28/2025 Overview (01/28/2025): -CT scan for tobacco screening 01/27/25 Impression: Spiculated masslike consolidation in the left upper lobe concerning for neoplasm until proven otherwise. Consider further follow-up with PET-CT or tissue sampling. Correlation with patient's symptoms and clinical history for possible infection should also be considered and at minimum, short-term follow-up with CT in 1-2 months should be considered to assess for stability/evolution of these findings. Mild left axillary and mediastinal lymphadenopathy, indeterminate and could be metastatic or reactive to the above. Will contact pulmonology for follow up recommendations. Osteopenia of multiple sites 10/29/2024 Overview (10/29/2024): DEXA 10/28/24 Based on bone mineral density, and according to World Health Organization (WHO) criteria, the diagnosis is consistent with osteopenia. Abdominal aortic aneurysm (AAA) 10/07/2024 Overview (10/29/2024): X ray of l-spine 10/07/24 shows aneurysmal dilation of abdominal aortic atherosclerotic calcifications recommending aortic ultrasound for further evaluation. -US aortic ordered 10/20/24 revealed distal aortic ectasia without aneurysmal formation Assessment & Plan (10/07/2024 1:41 PM EDT): X ray of l-spine 10/07/24 shows aneurysmal dilation of abdominal aortic atherosclerotic calcifications recommending aortic ultrasound for further evaluation. -US aortic ordered 10/07/24 Breast screening 10/01/2024 Overview (10/01/2024): 03/25/24 BIRADS- [...] talk and established initial goals with patient. Chronic pain of left ankle 09/16/2024 Overview (10/08/2024): MRI 09/15/24 MR/MR ankle LT wo/w con [...] joint effusion. -referral to ortho placed 09/03/24 -Seen by Dr. Koehler commercial food instructor at [facility] , no changes Assessment & Plan (10/01/2024 3:12 PM EDT): [...] care facilitated by [facility] in [place] -dental home is [facility] -health care proxy: pt reports has at home 06/25/23 Assessment & Plan (10/01/2024 2:58 PM EDT): -next comprehensive annual evaluation due after 10/01/25 -eye care facilitated by [facility] in [place] -dental home is [facility] -health care proxy: pt reports has at home 06/25/23 Assessment & Plan (06/25/2023 11:24 AM EST): -next physical exam due after 06/25/24 -eye care facilitated by [facility] in [place] -dental home is [facility] -health care proxy: pt reports has [...] by rheumatology Tobacco dependence syndrome 04/03/2012 Overview (01/28/2025): -Cigg/day: 5 /day -Age started: 16 -Total years smokin -Pack year history: 41 Encouraged smoking cessation resources such as pharmacomtherapy, [facility] smoking cessation group, and [facility] pharmacy smoking cessation clinic Discussed USPSTF recommends annual lung cancer screening with low dose CT in people who meet the following criteria: -ages 50 to 80 years. -have a 20 pack-year smoking history. -currently smoke cigarettes or quit within the past 15 years. -LDCT: CT scan for tobacco screening 01/27/25 Impression: Spiculated masslike consolidation in the left upper lobe concerning for neoplasm until proven otherwise. Consider further follow-up with PET-CT or tissue sampling. Correlation with patient's symptoms and clinical history for possible infection should also be considered and at minimum, short-term follow-up with CT in 1-2 months should be considered to assess for stability/evolution of these findings. Mild left axillary and mediastinal lymphadenopathy, indeterminate and could be metastatic or reactive to the above. Will contact pulmonology for follow up recommendations. Assessment & Plan (10/01/2024 2:57 PM EDT): -Cigg/day: 5 /day -Age started: 16 -Total years smokin -Pack year history: 41 Encouraged smoking cessation resources such as pharmacomtherapy, [facility] smoking cessation group, and [facility] pharmacy smoking cessation clinic D[facility]ed [facility] recommends annual lung cancer screening with [...] as pharmacomtherapy, [facility] smoking cessation group, and [facility] pharmacy smoking cessation clinic Discussed USPSTF [...] current medications Systemic lupus erythematosus 11/24/2011 Overview (10/06/2024): Onset 2014 (intermittent leukopenia, oral ulcers, bilateral elbow arthritis, ++ URIAH, Mott/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 Rodriguez 04/15/24 Discussed the possibility of adding DMARDs such as Benlysta. Patient is not interested. Adjust hydroxychloroquine dose to 400 mg daily x5 days a week and 200 mg daily x2 days a week Labs before next visit in 6 -followed by [facility] Ashley Chanel note from 04/20/24 reviewed -seen by Dr. Negin Hewitt MD 10/03/24, note revived. No changes. Assessment & Plan (10/01/2024 2:57 PM EDT): Onset 2014 (intermittent leukopenia, oral ulcers, bilateral elbow arthritis, ++ URIAH, Mott/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 Rodriguez 04/15/24 Discussed the [...] Problem Noted Date Diagnosed Date Resolved Date Dietary counseling 10/01/2024 Assessment & Plan (10/01/2024 [...] saturated fat, and sodium. Exercise counseling 10/01/2024 10/30/19 25 Assessment & Plan (10/01/2024 3:14 PM EDT): Exercise Recommendations: At least 150 minutes of moderate-intensity physical activity per week, or an equivalent combination of moderate- and vigorous-intensity activity. Smoker 10/02/2022 10/05/2022 Candidiasis of vagina 09/12/20222022 [...] Encounters Date Type Department Care Team Description 01/28/2025 Results Follow-Up [address] Lung Screening Low dose 01/23/2025 Orders Only [facility] External Provider, [facility] Abnormal CT scan, lung (Primary Dx); Tobacco dependence syndrome 01/15/2025 Refill [facility] [address] [place] [address] Marjan Sams MD Arthritis of both knees 12/26/[address] [address] Marjan Sams MD March Recalls 12/26/2024 Travel 12/19/2024 Refill [facility] [address] [place] [address] Marjan Sams MD History of DVT (deep vein thrombosis) 12/18/2024 Refill [facility] [address] [place] [address] Marjan Sams MD Arthritis of both knees 11/21/2024 Refill [facility] [address] [place] [address] Viridiana Hernández, KIMBERLY Arthritis of both knees 11/21/2024 Telephone [facility] [address] [place] [address] Marjan Sams MD Med Refill 11/14/2024 9:30 AM EDT Clinical Support [facility] [address] [place] [phone] Viridiana Heránndez RN Chronically on opiate therapy (Primary Dx) 11/14/2024 Travel from Last 3 Months Immunizations Immunization Administration Dates Next Due Hep A, Adult [...] 66 10/01/2024 9:53 AM EDT Temperature 35.6 C (96 F) 10/01/2024 9:53 AM EDT Respiratory Rate 20 10/01/2024 9:53 [...] Description 02/20/2025 9:30 AM EDT Clinical Support [facility] [address] [place] [address] Viridiana Hernández RN [address] [place] [address] 03/12/2025 9:30 AM EDT Office Visit [facility] [address] [place] [address] Marjan Sams MD [address] [place] [address] Health Maintenance Due Date Last Done Comments CT Colonography 1966 FIT DNA/Cologuard 1966 FIT 1965 FOBT 1965 Sigmoidoscopy 1965 Disability Screening 1965 Mammogram 09/23/2024 03/25/2024, 03/05, 02/11/2024, Additional history exists Influenza Vaccine (#1) 2025 , 04/06/2023, 03/10/2022, Additional history exists Depression Screening 02/12/2025 02/13/2024, [...] Additional history exists HIV Screening Completed 02/13/2024 HIB Vaccines Aged [...] Procedure Name Priority Date/Time Associated Diagnosis Comments LDCT LUNG SCREENING Routine 01/24/2025 7 :42 PM EDT POCT BLADE-14 URINE DRUG SCREEN Routine 11/14/2024 9:00 AM EDT Chronically on opiate therapy BI MAMMOGRAM DIAGNOSTIC [...] Recently Relevant to Health Maintenance Results * CT Lung Screening Low dose (01/24/2025 7:42 PM EDT) Anatomical Region Laterality Modality Lung Computed Tomogra phy 01/24/2025 7:42 PM EDT Narrative 01/24/2025 7:43 PM EDT [place] [address] [address] Scan Report Signed with Addenda Patient: Tammy Moeller MR#: [id number] : 1965 Acct:[id number] Age/Sex: 59 / F ADM Date: 01/23/25 Loc: .CT Attending Dr: Magdalene Peoples MAILING SPECIALIST Ordering Physician: Awa Heredia PA-C Date of Service: 01/23/25 Procedure(s): CT lung screening Accession Number(s): [id number] cc: Marjan Sams MD; Awa Heredia PA-C Report Number: [id number]: Total DLP = 41.00 mGy-cm ADDENDUM This document has been electronically signed by: Clniton Wen MD on 01/24/2025 19:42:52 ADDENDUM: Category 4B: Suspicious, Additional diagnostics and/or tissue sampling recommended This document has been electronically signed by: Clinton Wen MD on 01/27/2025 21:03:33 Addendum Dictated By: Clinton Wen MD Addendum Signed By: <Electronically signed by Clinton Wen MD in OV> 01/27/252103 Addendum Cosigned By: DD/ TD/TT: 01/27/25 CLINICAL HISTORY: F17.210 - Nicotine dependence, cigarettes, uncomplicated CT lung cancer screening (LDCT) Comparison: None provided Technique: Axial CT images of the chest using low-dose technique. Referring provider counseled the patient on shared decision-making for LDCT screening. Additional counseling was provided on smoking cessation. Effective radiation dose total: DLP 30.3 mGycm, CTDIvol 1 mGy. Findings: Lung: There is area of masslike airspace consolidation in the left upper lobe measuring 4.2 x 5.3 x 4.8 cm. Lungs are otherwise clear without additional masses or nodules identified. Central airways are patent. No bronchiectasis, bronchial wall thickening or mucous plugging. Normal heart size. No pericardial effusion. Moderate multivessel coronary artery calcifications. Calcified but nonaneurysmal thoracic aorta. Normal caliber central pulmonary arteries. Mildly enlarged left axillary and few mediastinal and left hilar lymph nodes. No acute findings within visualized lower neck. No acute findings within visualized upper abdomen. No lytic or sclerotic osseous lesions. Impression: 1. Spiculated masslike consolidation in the left upper lobe concerning for neoplasm until proven otherwise. Consider further follow-up with PET-CT or tissue sampling. Correlation with patient's symptoms and clinical history for possible infection should also be considered and at minimum, short-term follow-up with CT in 1-2 months should be considered to assess for stability/evolution of these findings. 2. Mild left axillary and mediastinal lymphadenopathy, indeterminate and could be metastatic or reactive to the above. 3. Additional findings as above. Category 1: Normal; continue annual screening Category 2: Benign appearance or behavior, continue annual screening Category 3: Probably benign, [address] recommended Category 4A: Suspicious, [address] recommended; may consider PET/CT Category 4B: Suspicious, Additional diagnostics and/or tissue sampling recommended Category 4X: Suspicious, Additional diagnostics and/or tissue sampling recommended Category 0: Recalls (incomplete screen due to Incomplete coverage, Noise, Respiratory motion, Expiration, Obscured by acute abnormality) This document has been electronically signed by: Clinton Wen MD on 01/24/2025 19:42:52 Dictated By: Clinton Wen MD Signed By: <Electronically signed by Clinton Wen MD in OV> 01/24/251942 DD/ 41 TD/TT: 01/24/251941 Maintenance Mechanic Telephone: Procedure Note Donotuseinterpreter, Image - 01/27/[address] [place] [address] [address] Scan Report Signed with Addenda Patient: Tammy Moeller#: [id number] : 1965Acct:[id number] Age/Sex: 59 / FADM Date: 01/23/25 Loc: HO.CT Attending Dr: Magdalene Peoples MAILING SPECIALIST Ordering Physician: Awa Heredia PA-C Date of Service: 01/23/25 Procedure(s): CT lung screening Accession Number(s): [id number] cc: Marjan Sams MD; Awa Heredia PA-C Report Number: [id number]: Total DLP = 41.00 mGy-cm ADDENDUM This document has been electronically signed by: Clinton Wen MD on 01/24/2025 19:42:52 ADDENDUM: Category 4B: Suspicious, Additional diagnostics and/or tissue sampling recommended This document has been electronically signed by: Clinton Wen MD on 01/27/2025 21:03:33 Addendum Dictated By: Clinton Wen MD Addendum Signed By: <Electronically signed by Clinton Wen MD in OV> 01/27/252103 Addendum Cosigned By: DD/ TD/TT: 01/27/25 CLINICAL HISTORY: F17.210 - Nicotine dependence, cigarettes, uncomplicated CT lung cancer screening (LDCT) Comparison: None provided Technique: Axial CT images of the chest using low-dose technique. Referring provider counseled the patient on shared decision-making for LDCT screening. Additional counseling was provided on smoking cessation. Effective radiation dose total: DLP 30.3 mGycm, CTDIvol 1 mGy. Findings: Lung: There is area of masslike airspace consolidation in the left upper lobe measuring 4.2 x 5.3 x 4.8 cm. Lungs are otherwise clear without additional masses or nodules identified. Central airways are patent. No bronchiectasis, bronchial wall thickening or mucous plugging. Normal heart size. No pericardial effusion. Moderate multivessel coronary artery calcifications. Calcified but nonaneurysmal thoracic aorta. Normal caliber central pulmonary arteries. Mildly enlarged left axillary and few mediastinal and left hilar lymph nodes. No acute findings within visualized lower neck. No acute findings within visualized upper abdomen. No lytic or sclerotic osseous lesions. Impression: 1. Spiculated masslike consolidation in the left upper lobe concerning for neoplasm until proven otherwise. Consider further follow-up with PET-CT or tissue sampling. Correlation with patient's symptoms and clinical history for possible infection should also be considered and at minimum, short-term follow-up with CT in 1-2 months should be considered to assess for stability/evolution of these findings. 2. Mild left axillary and mediastinal lymphadenopathy, indeterminate and could be metastatic or reactive to the above. 3. Additional findings as above. Category 1: Normal; continue annual screening Category 2: Benign appearance or behavior, continue annual screening Category 3: Probably benign, [address] recommended Category 4A: Suspicious, [address] recommended; may consider PET/CT Category 4B: Suspicious, Additional diagnostics and/or tissue sampling recommended Category 4X: Suspicious, Additional diagnostics and/or tissue sampling recommended Category 0: Recalls (incomplete screen due to Incomplete coverage, Noise, Respiratory motion, Expiration, Obscured by acute abnormality) This document has been electronically signed by: Clinton Wen MD on 01/24/2025 19:42:52 Dictated By: Clinton Wen MD Signed By: <Electronically signed by Clinton Wen MD in OV> 01/24/251942 DD/ 41 TD/TT: 01/24/251941 Maintenance Mechanic Telephone: [facility] External Provider IMG CT PROCEDURES Edited Result - Final * POCT BLADE-14 Urine Drug Screen (11/14/2024 9:00 AM EDT) THC Negative Cocaine Screen, Urine Negative Opiate Screen, Urine Negative Methamphetamine Screen Urine Negative Amphetamine Screen, Urine Negative Benzodiazepines Screen, Urine Negative Barbiturate Screen, Urine Negative Methadone Screen, Urine Negative Buprenophine Screen, Urine Negative TCA, Urine Negative MDMA Urine Negative ng/mL Oxycodone Screen, Urine Positive Phencyclidine (PCP), Urine Negative Propoxyphene, Urine Negative Fentanyl, Urine Negative Urine Urine specimen obtained by clean catch procedure / Unknown 11/14/2024 9:00 AM EDT Narrative Viridiana Hernández RN - 11/14/2024 9:00 AM EDT .UTOX cup Lot#[id number] Exp. 04/03/26 Internal Pass Control Marjan Sams MD POINT OF CARE TEST ENTER/E DIT ORDERABLES Final Result * BI Mammogram Diagnostic Tomosynthesis Bilateral (03/25/2024 2:00 PM EDT) Anatomical Region Laterality Modality Breast Bilateral Mammography 03/25/2024 2:00 PM EDT Narrative 03/25/2024 2:50 PM EDT [facility] [address] [place] [address] Mammography Report Signed Patient: Tammy Moeller MR#: [id number] : 1965 Acct:[id number] Age/Sex: 58 / F ADM Date: 03/25/24 Loc: KELLIE.MAMMO Attending Dr: Marjan Sams MD Ordering Physician: Marjan Sams MD Results: 2B enign Findings Date of Service: 03/25/24 Follow Up: 1 Year From Orig inal Mammogram Procedure(s): MM tomosynthesis diagnostic BI Accession Number(s): [id number] cc: Marjan Sams MD EXAMINATION: MM DIAGNOSTIC [...] 03/25/24 1447 DD/ 1400 TD/TT: 03/25/24 1422 Maintenance Mechanic Telephone: Procedure Note Donotuseinterpreter, Image - 03/25/2024 [facility] [address] [place] [address] Mammography Report Signed Patient: Tammy Moeller#: [id number] : 1965Acct:[id number] Age/Sex: 58 / FADM Date: 03/25/24 Loc: HO.MAMMO Attending Dr: Marjan Sams MD Ordering Physician: Marjan Sams MDResults: 2B enign Findings Date of Service: 03/25/24Follow Up: 1 Year From Orig inal Mammogram Procedure(s): MM tomosynthesis diagnostic BI Accession Number(s): [id number] cc: Marjan Sams MD EXAMINATION: MM DIAGNOSTIC [...] Jimenez MD 03/25/2024 02:47 PM EDT Workstation: [employer] Dictated By: Amor Jimenez MD Signed By: <Electronically signed by Amor Jimenez MD in OV> 03/25/24 1447 DD/ 1400 TD/TT: 03/25/24 1422 Maintenance Mechanic Telephone: us Marjan Sams MD IM BI PROCEDURES Final Re sult * HIV-1/2 Antigen and Antibodies, Fourth Generation, with Reflexes (02/13/2024 10:36 AM EDT) HIV AB/AG Nonreactive Nonreactive [facility] Comment:HIV-1 p24 Ag and/or HIV-1/HIV-2 Ab not detected.A test result that is nonreactive does not exclude thepossibility of exposure to or infection with HIV-1 and/orHIV-2. Nonreactive results in this assay for individualswith prior exposure to HIV-1 and/or HIV-2 may be due toantigen and antibody levels that are below the limit ofdetection of this assay.The ttwick HIV Ag/Ab Combo assay result andsupplemental assay results should be interpreted inconjunction with the patient's clinical presentation,history and other laboratory results. If the results areinconsistent with clinical evidence, additional testing issuggested to confirm the result. Blood Venous blood specimen / Unknown 02/13/2024 10:36 AM EDT 02/13/2024 11:19 AM EDT Marjan Sams MD LAB BLOOD ORDERABLES Final Result Performing Organization Address [facility] Co de Phone Number [facility] [address] [place] [address] [phone] * (ABNORMAL) Lipid Panel, Standard (02/13/2024 10:36 AM EDT) Triglycerides 115 <150 mg/dL [facility] Comment:Desirable Triglyceri de: less than 150 mg/dLBorderline High Triglyceride 150-199 mg/dLHigh Triglyceride: 200-499 mg/dLVery High Triglyceride: greater than or equal to 5OO mg/dL Cholesterol 178 <200 mg/dL [facility] Comment:Desirable Cholestero l: less than 200 mg/dLBorderline High Cholesterol: 200-239 mg/dLHigh Cholesterol: greater than 239 mg/dL LDL Cholesterol Calculated 114(H) <100 mg/dL [facility] Comment:Desirable LDL: less than 100 mg/dLNear Optimal/Above Optimal LDL: 110- 129 mg/dLBorderline High LDL: 130-159 mg/dLHigh LDL: 160-189 mg/dLVery High LDL: greater than or equal to 190 mg/dL HDL Cholesterol 41 >40 mg/dL [facility] Comment:Desirable HDL: great er than 40 mg/dL Note: This HDL assay may give artificially low results in patients with liver disease. Blood Venous blood specimen / Unknown 02/13/2024 10:36 AM EDT 02/13/2024 11:19 AM EDT Marjan Sams MD LAB BLOOD ORDERABLES Final Result Performing Organization Address [facility]/ZIP Co de Phone Number [facility] [address] [place] [phone] * Thinprep PAP, HPV mRNA E6/E7 RFX HPV 16,18/45, Chlamydia/N. Gonorrhoeae (11/03/2022 12:00 AM EDT) Clinical Information: ROUTINE [employer] [place] makeenat LMP: NONE GIVEN [employer] [place] makeenat Prev. PAP: NONE GIVEN [employer] [place] [facility] [facility] Prev. BX: NO [facility] SOURCE: None given [employer] Statement Of Adequacy: SATISFACTORY FOR EVALUATION [facility] Interpretation/Re sult: [employer] [place] [facility] Comment: Negative for intraepithelial lesion or malignancy. Atrophic pattern; predominantly parabasal cells Tattoo Technician: Farheen [employer] Comment: WXW, CT(ASCP) CT Screening Location: [place] [address] (Always Message) [facility] Answerology Comment: EXPLANATORY NOTE: The Pap is a [...] HPV nRNA E6/E7 Not Detected Not Detected [facility] Comment: Methodology: Aerial Gunner Superintendent-Mediated Amplification This assay detects E6/E7 viral messenger RNA (mRNA) from 14 high-risk HPV types (16,18,31,33,35,39,45,51,52,56,58,59,66,68). Cervical sources are required for HPV testing. If a vaginal source from a patient who has had a total hysterectomy with removal of cervix was submitted, please contact the testing laboratory for alternative testing options. For additional information, please refer to http://education.Waveseer/faq/KFZ359u1 (This link if provided for information/ educational purposes only.) Chlamydia trachomatis RNA, TMA, Urogenital NOT DETECTED NOT DETECTED [employer] Neisseria gonorrhoeae RNA, TMA, Urogenital NOT DETECTED NOT DETECTED [employer] (Always Message) [facility] [employer] Comment: The analytical performance characteristics of this assay, when used to test SurePath(TM) specimens have been determined by [employer]. The modifications have not been cleared or approved by the FDA. This assay has been validated pursuant to the CLIA regulations and is used for clinical purposes. For additional information, please refer to https://Fabkids.Waveseer/faq/LDX837 (This link is being provided for information/ educational purposes only.) 11/03/2022 11/06/2022 9:1 5 PM EDT Narrative [facility] - 11/09/2022 10:33 AM EDT FASTING: UNKNOWN Marjan Sams MD LAB PATHOLOGY ORDERABLES F inal Result Performing Organization Address [facility] de Phone Number [address], [place] [address] [employer] [address] [place] [phone] * Hepatitis C Antibody with Reflex to HCV, RNA, Quantitative, Real-Time PCR (10/31/2022 8:11 AM EDT) Hepatitis C Antibody NON-REACT CHOCO NON-REACT CHOCO Zaask Index 0.43 <1.00 Zaask Comment: HCV antibody was non-reactive. There is no laboratory evidence of HCV infection. In most cases, no further action is required. However, if recent HCV exposure is suspected, a test for HCV RNA (test code 01083) is suggested. For additional information please refer to http://Fabkids.Waveseer/faq/OQY56c0 (This link is being provided for informational/ educational purposes only.) Blood Venous blood specimen / Unknown 10/31/2022 8:11 AM EDT 10/31/2022 8:11 AM EDT Narrative QUEST - 10/31/2022 9:53 PM EDT FASTING:YES FASTING: YES Marjan Sams MD LAB BLOOD ORDERABLES Final Result Performing Organization Address [facility] Co de Phone Number [address], [facility] [place] [address] [employer] [address] [place] [phone] * Hm Colonoscopy (03/30/2017 12:40 PM EDT) us Historical Provider HEALTH MAINTENANCE Final Result from Last 3 Months or Most Recently Relevant to Health Maintenance Insurance [employer] MEDICARE REPLACEMENT Advance Directives Documents on File Type Date Recorded 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
--- OUTSIDE RECORDS SUMMARY | 2025-02-03 11:17 | XMS_ITS | Encounter Summary ---
Author Organization [employer] Address 75 [facility] 7t [place] [address] Care Team Providers Care Paint Trimmer Pipe Bowls Name Role Phone Marjan Sams MD Primary Care Provider +1- [phone] Esteban Nice MD Unavailable Ashley Chanel OD Unavailable [phone] Alban Koehler Unavailable Reason for Visit * Reason Onset Date Comments Med Refill 11/21/2024 Encounter Details Date Type Department Care Team (Late st Contact Info) Description 11/21/2024 Telephone [facility]INE [address] [place] [address] [phone] Marjan Sams MD 230 [place], [place] [phone] Med Refill Social History Tobacco Use Types [...] encounter Miscellaneous Notes * Telephone Encounter - Patricia Dumont - 11/21/2024 8:01 AM EDT TC from pt requesting medication refill. Medications needing refill : oxyCODONE-acetaminophen (Percocet) 5-325 MG tablet To be sent to: [facility]/pharmacy #[id number] [place] [address] - [address] [place] [address] documented in this encounter Plan of Treatment Upcoming Encounters Date Type Department Care Team ([facility] st Contact Info) Description 02/20/2025 9:30 AM EDT Clinical Support [facility]INE 230 [place] [address] Viridiana Hernández, RN 505 [place] [address] 03/12/2025 9:30 AM EDT Office Visit [facility] 230 [place] [address] Marjan Sams MD 230 [place] [address] documented as of this encounter Visit Diagnoses Not on filedocumented in this encounter Additional Health Concerns Assessment Noted Time PHQ-9 Depression Total Score: 4 02/13/20 24 9:45 AM EDT documented as of this encounter Care Teams Paint Trimmer Pipe Bowls Relationship Specialty Start Date End Date Marjan Sams MD 230 [place] [address] PCP - General Family Medicine 06/04/18 Esteban Nice MD [address] [place] [address] Rheumatology 05/21/24 Ashley Chanel OD 180 [place] [address] Optometry 05/21/24 Alban Koehler [address] [address] Podiatry 10/08/24 Dea Hewitt MD Rheumatology 10/06/24 documented as of this encounter
--- OUTSIDE RECORDS SUMMARY | 2025-02-03 11:17 | XMS_ITS | Clinical Summary ---
Author Organization 175 [facility] Address 175 [place] [address] Phone Care Team Providers Care Psychologist Engineering Name Role Phone AlexisElizabeth curran Primary Care Provider +1- [phone] Allergies No known active allergies Social History [...] 9:00 AM EDT Consult Vascular Surgery - [place] [address] [place] [address] Levon [place] MD [address] [place] [phone] Health Maintenance Due Date Last Done Comments [...] MEDICARE ADVANTAGE MEDICAID - [place] Care Teams Psychologist Engineering Relationship Specialty Start Date End Date Elizabeth Ly DO [address] [place] [address] PCP - General Family Medicine 10/02/24
--- OUTSIDE RECORDS SUMMARY | 2025-02-03 11:17 | XMS_ITS | Encounter Summary ---
Author Organization [employer] Address 75 [facility] 7t [place] [address] Care Team Providers Care Water Taxi Captain Name Role Phone Marjan Sams MD Primary Care Provider +1- [phone] Esteban Nice MD Unavailable Ashley Chanel OD Unavailable [phone] Alban Koehler Unavailable Reason for Visit * Reason Onset Date Comments Med Refill 02/19/2023 Encounter Details Date Type Department Care Team (Late st Contact Info) Description 02/19/2023 Telephone [facility] MEDICINE [address] [place] [address] [phone] Marjan Sams MD 230 [place], [place] [phone] Med Refill Social History Tobacco Use Types [...] Description 02/20/2025 9:30 AM EDT Clinical Support [facility]INE [address] [place] [address] Viridiana Hernández RN 505 [place] [address] 03/12/2025 9:30 AM EDT Office Visit [facility] [address] [place] [address] Marjan Sams MD [address] [place] [address] documented as of this encounter Visit Diagnoses Not on filedocumented in this encounter Additional Health Concerns Assessment Noted Time PHQ-9 Depression Total Score: 0 11/04/19 23 10:28 AM EDT documented as of this encounter Care Teams Water Taxi Captain Relationship Specialty Start Date End Date Marjan Sams MD 230 [place] [address] PCP - General Family Medicine 06/04/18 Esteban Nice MD [address] [place] [address] Rheumatology 05/21/24 Ashley Chanel OD 180 [place] [address] Optometry 05/21/24 Alban Koehler [address] [address] Podiatry 10/08/24 Dea Hewitt MD Rheumatology 10/06/24 documented as of this encounter
== END 2025-02-03 10:28 | disposition home or self-care (01) ==
LOC: HO.HPS 09:58
PROVIDERS: PCP Family Medicine; Referring Provider Physician Assistant Medical; Visit Provider Internal Medicine Pulmonary Disease
DX: J44.9 Chronic obstructive pulmonary disease, unspecified (principal); R91.8 Other nonspecific abnormal finding of lung field
CPT/HCPCS: 99204

== ENCOUNTER → 2025-02-03 09:58 | Outpatient (BNVA) | payer MEDICARE, SELFPAY | PROVIDERS: PCP Family Medicine; Referring Provider Physician Assistant Medical; Visit Provider Internal Medicine Pulmonary Disease | DX: Z71.2 Person consulting for explanation of examination or test findings (principal); R91.8 Other nonspecific abnormal finding of lung field; J44.9 Chronic obstructive pulmonary disease, unspecified | CPT/HCPCS: 99202 ==

== ENCOUNTER 2025-02-04 12:57 | Outpatient (REF) | payer MEDICARE, SELFPAY ==
--- NOTE | 2025-02-04 13:15 | PFT_ITS ---
Flows: FEV1: 50 % of predicted at 1.02 L FVC: 69 % of predicted at 1.77 L FEV1/FVC: 57 % Bronchodilator response: Absent Volumes: Total lung capacity: 78 % of predicted at 3.75 L Residual volume: 120 % of predicted at 1.89 L Slow vital capacity: 58 % of predicted at 1.86 L Expiratory reserve volume: 51 % of predicted at 0.40 L Diffusion capacity: Severely decreased, adjusts to being moderately decreased after correction for alveolar ventilation. Impression: Moderate to severe obstructive ventilatory defect with restrictive ventilatory defect with no bronchodilator response. Increased residual volume suggests air trapping. Decreased diffusion capacity suggests emphysema. MTDD
[2025-02-04 13:52] VITALS: PULSE 68; O2SAT 99
--- OUTSIDE RECORDS SUMMARY | 2025-02-04 15:19 | XMS_ITS | Encounter Summary ---
Author Organization [employer] Address 75 [facility] 7t [place] [address] Care Team Providers Care Retail Field Representative Name Role Phone Marjan Sams MD Primary Care Provider [phone]- [phone] Esteban Nice MD Unavailable Ashley Chanel OD Unavailable [phone] Alban Koehler Unavailable Reason for Visit * Reason Onset Date Comments Med Refill 08/20/2024 Encounter Details Date Type Department Care Team (Late st Contact Info) Description 08/20/2024 Telephone [facility] MEDICINE [address] [place] [address] [phone] Marjan Sams MD 230 [place], [place] [phone] Med Refill Social History Tobacco Use Types [...] 5-325 MG tablet To be sent to: [facility]/pharmacy #[address] [place] [address] - [address] [place] [address] documented in this encounter Plan of Treatment Upcoming Encounters Date Type Department Care Team (Late st Contact Info) Description 02/20/2025 9:30 AM EDT Clinical Support [facility] MEDICINE [address] [place] [address] Viridiana Hernández RN 505 [place] [address] 03/12/2025 9:30 AM EDT Office Visit [facility]INE [address] [place] [address] Marjan Sasm MD [address] [place] [address] documented as of this encounter Visit Diagnoses Not on filedocumented in this encounter Additional Health Concerns Assessment Noted Time PHQ-9 Depression Total Score: 4 02/13/20 24 9:45 AM EDT documented as of this encounter Care Teams Retail Field Representative Relationship Specialty Start Date End Date Marjan Sams MD 230 [place] [address] PCP - General Family Medicine 06/04/18 Esteban Nice MD [address] [place] [address] 402 [place] [address] Rheumatology 05/21/24 Ashley Chanel OD 180 [place] [address] Optometry 05/21/24 Alban Koehler [address] [address] Podiatry 10/08/24 Dea Hewitt MD Rheumatology 10/06/24 documented as of this encounter
--- OUTSIDE RECORDS SUMMARY | 2025-02-04 15:19 | XMS_ITS | Encounter Summary ---
Author Organization [employer] Address 75 [facility] [address] 7t [place] [address] Care Team Providers Care Cnc Service Technician Name Role Phone Marjan Sams MD Primary Care Provider +1- [phone] Esteban Nice MD Unavailable Ashley Chanel OD Unavailable [phone] Alban Koehler Unavailable Reason for Visit * Reason Onset Date Comments Med Refill 10/20/2024 Encounter Details Date Type Department Care Team (Late st Contact Info) Description 10/20/2024 Refill [facility] [address] [place] [address] Marjan Sams MD [address] [place] [address] Arthritis of both knees Social History Tobacco [...] Description 02/20/2025 9:30 AM EDT Clinical Support [facility] [address] [place] [address] Viridiana Hernández RN 505 [place] [address] 03/12/2025 9:30 AM EDT Office Visit [facility] [address] [place] [address] Marjan Sams MD 230 [place] [address] documented as of this encounter Visit Diagnoses Diagnosis Arthritis of both knees documented in this encounter Additional Health Concerns Assessment Noted Time PHQ-9 Depression Total Score: 4 02/13/20 24 9:45 AM EDT documented as of this encounter Care Teams Cnc Service Technician Relationship Specialty Start Date End Date Marjan Sams MD 230 [place] [address] PCP - General Family Medicine 06/04/18 Esteban Nice MD [address] [place] [address] 402 [place] [address] Rheumatology 05/21/24 Ashley Chanel OD 180 [place] [address] Optometry 05/21/24 Alban Koehler 175 [facility] 110 [place] [address] Podiatry 10/08/24 Dea Hewitt MD Rheumatology 10/06/24 documented as of this encounter
--- OUTSIDE RECORDS SUMMARY | 2025-02-04 15:19 | XMS_ITS | Encounter Summary ---
Author Organization [employer] Address 75 [facility] 7t [place] [address] Care Team Providers Care Inspectors And Regulatory Officers Name Role Phone Marjan Sams MD Primary Care Provider +1- [phone] Esteban Nice MD Unavailable Ashley Chanel OD Unavailable [phone] Alban Koehler Unavailable Reason for Visit * Reason Comments Med Refill Encounter Details Date Type Department Care Team (Late st Contact Info) Description 10/19/2023 Refill [facility] 230 [place] [address] Lluvia Mendoza MD 230 [place] [address] History of DVT (deep vein thrombosis) Social [...] Description 02/20/2025 9:30 AM EDT Clinical Support [facility] [address] [place] [address] Viridiana Hernández, KIMBERLY 505 [place] [address] 03/12/2025 9:30 AM EDT Office Visit [address] [address] Marjan Sams MD [address] [place] [address] documented as of this encounter Visit Diagnoses Diagnosis History of DVT (deep vein thrombosis) documented in this encounter Additional Health Concerns Assessment Noted Time PHQ-9 Depression Total Score: 0 11/04/19 23 10:28 AM EDT documented as of this encounter Care Teams Inspectors And Regulatory Officers Relationship Specialty Start Date End Date Marjan Sams MD [address] [place] [address] PCP - General Family Medicine 06/04/18 Esteban Nice MD [address] [place] [address] Rheumatology 05/21/24 Ashley Chanel OD 180 [place] [address] Optometry 05/21/24 Alban Koehler [address] [address] Podiatry 10/08/24 Dea Hewitt MD Rheumatology 10/06/24 documented as of this encounter
--- OUTSIDE RECORDS SUMMARY | 2025-02-04 15:19 | XMS_ITS | Encounter Summary ---
Author Organization [employer] Address 75 [facility] 7t [place] [address] Care Team Providers Care Brim Stretching Machine Operator Name Role Phone Marjan Sams MD Primary Care Provider +1- [phone] Esteban Nice MD Unavailable Ashley Chanel OD Unavailable [phone] Alban Koehler Unavailable Reason for Visit * Reason Onset Date Comments Med Refill 10/17/2024 Encounter Details Date Type Department Care Team (Late st Contact Info) Description 10/17/2024 Telephone [facility] [address] [place] [address] [phone] Marjan Sams MD 230 [place] [address] Med Refill Social History Tobacco Use Types [...] 5-325 MG tablet To be sent to: [facility]/pharmacy #[id number] [place] [address] - [address] [place] [address] documented in this encounter Plan of Treatment Upcoming Encounters Date Type Department Care Team ([facility] st Contact Info) Description 02/20/2025 9:30 AM EDT Clinical Support [facility] 230 [place], [place] [phone] Viridiana Hernández, RN 505 [place] [address] 03/12/2025 9:30 AM EDT Office Visit [facility] 230 [place] [address] Marjan Sams MD 230 [place] [address] documented as of this encounter Visit Diagnoses Not on filedocumented in this encounter Additional Health Concerns Assessment Noted Time PHQ-9 Depression Total Score: 4 02/13/20 24 9:45 AM EDT documented as of this encounter Care Teams Brim Stretching Machine Operator Relationship Specialty Start Date End Date Marjan Sams MD 230 [place] [address] PCP - General Family Medicine 06/04/18 Esteban Nice MD [address] [place] [address] Rheumatology 05/21/24 Ashley Chanel OD 180 [place] [address] Optometry 05/21/24 Alban Koehler [address] [address] Podiatry 10/08/24 Dea Hewitt MD Rheumatology 10/06/24 documented as of this encounter
--- OUTSIDE RECORDS SUMMARY | 2025-02-04 15:19 | XMS_ITS | Encounter Summary ---
Author Organization [employer] Address 75 [facility] [address] 7t [place] [address] Care Team Providers Care Dimethylaniline Sulfator Operator Name Role Phone Marjan Sams MD Primary Care Provider +1- [phone] Esteban Nice MD Unavailable Ashley Chanel OD Unavailable [phone] Alban Koehler Unavailable Encounter Details Date Type Department Care Team (Late st Contact Info) Description 03/22/[address] [facility] MEDICINE 230 [place] [address] Marjan Sams MD 230 [place] [address] Preventative health care; Osteoarthritis of knee, unspecified [...] AM EDT Clinical Support [facility] MEDICINE [address] [place] [address] Viridiana Hernández RN 505 [place] [address] 03/12/2025 9:30 AM EDT Office Visit [facility] MEDICINE [address] [place] [address] Marjan Sams MD [address] [place] [address] documented as of this encounter Visit Diagnoses Diagnosis Preventative health care Routine general medical examination at a health care facility Osteoarthritis of knee, unspecified laterality, unspecified osteoarthritis type documented in this encounter Additional Health Concerns Assessment Noted Time PHQ-9 Depression Total Score: 0 11/04/19 23 10:28 AM EDT documented as of this encounter Care Teams Dimethylaniline Sulfator Operator Relationship Specialty Start Date End Date Marjan Sams MD [address] [place] [address] PCP - General Family Medicine 06/04/18 Esteban Nice MD [address] [place] [address] Rheumatology 05/21/24 Ashley Chanel OD 180 [place] [address] Optometry 05/21/24 Alban Koehler [address] [address] Podiatry 10/08/24 Dea Hewitt MD Rheumatology 10/06/24 documented as of this encounter
--- OUTSIDE RECORDS SUMMARY | 2025-02-04 15:19 | XMS_ITS | Clinical Summary ---
Author Organization 175 [facility] Address 175 [place] [address] Phone Care Team Providers Care Fitter Helper Name Role Phone AlexisElizabeth curran Primary Care Provider +1- [phone] Allergies No known active allergies Social History [...] 9:00 AM EDT Consult Vascular Surgery - [place] [address] [place] [address] Levon [place] MD [address] [place] [phone] Health Maintenance Due Date Last Done Comments [...] MEDICARE ADVANTAGE MEDICAID - [place] Care Teams Fitter Helper Relationship Specialty Start Date End Date Elizabeth Ly DO [address] [place] [address] PCP - General Family Medicine 10/02/24
--- OUTSIDE RECORDS SUMMARY | 2025-02-04 15:19 | XMS_ITS | Encounter Summary ---
Author Organization [employer] Address 75 [facility] 7t [place] [address] Care Team Providers Care Parks Worker Name Role Phone Marjan Sams MD Primary Care Provider +1- [phone] Esteban Nice MD Unavailable Ashley Chanel OD Unavailable [phone] Alban Koehler Unavailable Reason for Visit * Reason Onset Date Comments Uber Set-up 01/23/2024 Encounter Details Date Type Department Care Team (Late st Contact Info) Description 01/23/[address] [facility] MEDICINE 230 [place], [place] [phone] Marjan Sams MD 230 [place] [address] Uber Set-up Social History Tobacco Use Types [...] request a uber set-up for 01/29 appt flex o writer operator did confirm address and call back number documented in this encounter Plan of Treatment Upcoming Encounters Date Type Department Care Team (Late st Contact Info) Description 02/20/2025 9:30 AM EDT Clinical Support [facility] MEDICINE [address] [place] [address] Viridiana Hernández RN 505 [place] [address] 03/12/2025 9:30 AM EDT Office Visit [facility] [address] [place] [address] Marjan Sams MD [address] [place] [address] documented as of this encounter Visit Diagnoses Not on filedocumented in this encounter Additional Health Concerns Assessment Noted Time PHQ-9 Depression Total Score: 0 11/04/19 10:28 AM EDT documented as of this encounter Care Teams Parks Worker Relationship Specialty Start Date End Date Latrell, MD Marjan 230 [place] [address] PCP - General Family Medicine 06/04/18 Esteban Nice MD [address] [place] [address] [address] [place] [address] Rheumatology 05/21/24 Ashley Chanel OD 180 [place] [address] Optometry 05/21/24 Alban Koehler [address] [address] Podiatry 10/08/24 Dea Hewitt MD Rheumatology 10/06/24 documented as of this encounter
--- OUTSIDE RECORDS SUMMARY | 2025-02-04 15:19 | XMS_ITS | Encounter Summary ---
Author Organization [employer] Address 75 [facility] 7t [place] [address] Care Team Providers Care Cbx Operator Name Role Phone Marjan Sams MD Primary Care Provider +1- [phone] Esteban Nice MD Unavailable Ashley Chanel OD Unavailable [phone] Alban Koehler Unavailable Reason for Visit * Reason Onset Date Comments Med Refill 01/19/2023 Encounter Details Date Type Department Care Team (Late st Contact Info) Description 01/19/2023 Telephone [facility] MEDICINE [address] [place] [address] [phone] Marjan Sams MD 230 [place], [place] [phone] Med Refill Social History Tobacco Use Types [...] 5-325 MG tablet Please sent to [facility]/pharmacy #[id number] - [place], [place] - [address] [facility] documented in this encounter Plan of Treatment Upcoming Encounters Date Type Department Care Team (Late st Contact Info) Description 02/20/2025 9:30 AM EDT Clinical Support [facility] MEDICINE [address] [place] [address] Viridiana Hernández RN 505 [place] [address] 03/12/2025 9:30 AM EDT Office Visit [facility]INE [address] [place] [address] Marjan Sams MD [address] [place] [address] documented as of this encounter Visit Diagnoses Not on filedocumented in this encounter Additional Health Concerns Assessment Noted Time PHQ-9 Depression Total Score: 0 11/04/19 23 10:28 AM EDT documented as of this encounter Care Teams Cbx Operator Relationship Specialty Start Date End Date Marjan Sams MD [address] [place] [address] PCP - General Family Medicine 06/04/18 Esteban Nice MD [address] [place] [address] [place] [address] Rheumatology 05/21/24 Ashley Chanel OD 180 [place] [address] Optometry 05/21/24 Alban Koehler [address] [address] Podiatry 10/08/24 Dea Hewitt MD Rheumatology 10/06/24 documented as of this encounter
--- OUTSIDE RECORDS SUMMARY | 2025-02-04 15:19 | XMS_ITS | Encounter Summary ---
Author Organization [employer] Address [address] 7t [place] [address] Care Team Providers Care Roller Repairer Name Role Phone Marjan Sams MD Primary Care Provider +1- [phone] Esteban Nice MD Unavailable Ashley Chanel OD Unavailable [phone] Alban Koehler Unavailable Reason for Visit * Reason Onset Date Comments Call Back Request 10/14/2024 Encounter Details Date Type Department Care Team (Late st Contact Info) Description 10/14/2024 Telephone [facility] [address] [place] [address] [phone] Marjan Sams MD 230 [place], [place] [phone] Call Back Request (/) Social History Tobacco [...] RN - 10/14/2024 12:04 PM EDT Called [facility] scheduling who said that the pt has a DEXA scan scheduled for 10/29/24 but noultrasounds today or otherwise. Nothing noted in chart. Called pt and informed her of this, pt unaware of US ordered by specialist. Advised her if anything else comes up regarding this will let her know. Pt verbalized understanding. Residence Manager found note in chart from xray of the spine ordered by Dr Koehler (podiatry) that recommended follow up Vascular US abdominal aorta aneurysm (AAA) screening. Called pt back to advise of this and gave her phone number to call to clarify with Dr Koehler and to reschedule. [phone] . Pt verbalized understanding, to call that [...] Description 02/20/2025 9:30 AM EDT Clinical Support [address] [address] Viridiana Hernández RN 505 [place] [address] 03/12/2025 9:30 AM EDT Office Visit [facility] [address] [place] [address] Marjan Sams MD [address] [place] [address] documented as of this encounter Visit Diagnoses Not on filedocumented in this encounter Additional Health Concerns Assessment Noted Time PHQ-9 Depression Total Score: 4 02/13/20 24 9:45 AM EDT documented as of this encounter Care Teams Roller Repairer Relationship Specialty Start Date End Date Marjan Sams MD [address] [place] [address] PCP - General Family Medicine 06/04/18 Esteban Nice MD [address] [place] [address] Rheumatology 05/21/24 Ashley Chanel OD 180 [place] [address] Optometry 05/21/24 Alban Koehler [address] [address] Podiatry 10/08/24 Dea Hewitt MD Rheumatology 10/06/24 documented as of this encounter
--- OUTSIDE RECORDS SUMMARY | 2025-02-04 15:19 | XMS_ITS | Encounter Summary ---
Author Organization [employer] Address [address] [facility] 7t [place] [address] Care Team Providers Care Echo Technologist Name Role Phone Marjan Sams MD Primary Care Provider [phone]- [phone] Esteban Nice MD Unavailable Ashley Chanel OD Unavailable [phone] Alban Koehler Unavailable Reason for Visit * Reason Onset Date Comments Med Refill 01/21/2024 Encounter Details Date Type Department Care Team (Late st Contact Info) Description 01/21/2024 Telephone [facility] [address] [place] [address] [phone] Marjan Sams MD 230 [place], [place] [phone] Med Refill Social History Tobacco Use Types [...] MG tablet To be sent to: [facility] documented in this encounter Plan of Treatment Upcoming Encounters Date Type Department Care Team (Late st Contact Info) Description 02/20/2025 9:30 AM EDT Clinical Support [facility] [address] [place] [address] Viridiana Hernández RN 505 [place] [address] 03/12/2025 9:30 AM EDT Office Visit [facility] [address] [place] [address] Marjan Sams MD [address] [place] [address] documented as of this encounter Visit Diagnoses Not on filedocumented in this encounter Additional Health Concerns Assessment Noted Time PHQ-9 Depression Total Score: 0 06/02/20 23 10:28 AM EDT documented as of this encounter Care Teams Echo Technologist Relationship Specialty Start Date End Date Marjan Sams MD 230 [place] [address] PCP - General Family Medicine 06/04/18 Esteban Nice MD [address] [place] [address] [address] [place] [address] Rheumatology 05/21/24 Ashley Chanel OD 180 [place] [address] Optometry 05/21/24 Alban Koehler [address] [address] Podiatry 10/08/24 Dea Hewitt MD Rheumatology 10/06/24 documented as of this encounter
--- OUTSIDE RECORDS SUMMARY | 2025-02-04 15:19 | XMS_ITS | Encounter Summary ---
Author Organization [employer] Address [address] [facility] 7t [place] [address] Care Team Providers Care Wood Fuel Pelletizer Name Role Phone Marjan Sams MD Primary Care Provider +1- [phone] Esteban Nice MD Unavailable Ashley Chanel OD Unavailable [phone] Alban Koehler Unavailable Reason for Visit * Reason Onset Date Comments Med Refill 02/19/2023 Encounter Details Date Type Department Care Team (Late st Contact Info) Description 02/19/2023 Telephone [facility] [address] [place] [address] [phone] Marjan Sams MD 230 [place], [place] [phone] Med Refill Social History Tobacco Use Types [...] Description 02/20/2025 9:30 AM EDT Clinical Support [facility] [address] [place] [address] Viridiana Hernández RN 505 [place] [address] 03/12/2025 9:30 AM EDT Office Visit [facility] [address] [place] [address] Marjan Sams MD [address] [place] [address] documented as of this encounter Visit Diagnoses Not on filedocumented in this encounter Additional Health Concerns Assessment Noted Time PHQ-9 Depression Total Score: 0 11/04/19 23 10:28 AM EDT documented as of this encounter Care Teams Wood Fuel Pelletizer Relationship Specialty Start Date End Date Marjan Sams MD 230 [place] [address] PCP - General Family Medicine 06/04/18 Esteban Nice MD [address] [place] [address] Rheumatology 05/21/24 Ashley Chanel OD 180 [place] [address] Optometry 05/21/24 Alban Koehler [address] [address] Podiatry 10/08/24 Dea Hewitt MD Rheumatology 10/06/24 documented as of this encounter
--- OUTSIDE RECORDS SUMMARY | 2025-02-04 15:19 | XMS_ITS | Encounter Summary ---
Author Organization [employer] Address [address] [facility] 7t [place] [address] Care Team Providers Care Financial Services Education Consultant Name Role Phone Marjan Sams MD Primary Care Provider [phone]- [phone] Esteban Nice MD Unavailable Ashley Chanel OD Unavailable [phone] Alban Koehler Unavailable Reason for Visit * Reason Onset Date Comments Med Refill 02/21/2024 Encounter Details Date Type Department Care Team (Late st Contact Info) Description 02/21/2024 Telephone [facility] [address] [place] [address] [phone] Marjan Sams MD 230 [place], [place] [phone] Med Refill Social History Tobacco Use Types [...] your housing situation today? I have lynda aleaxnder 02/13/[address] you li [...] 5-325 MG tablet To be sent to: [facility]/pharmacy #[address] [place] [address] - [address] [place] [address] documented in this encounter Plan of Treatment Upcoming Encounters Date Type Department Care Team (Late st Contact Info) Description 02/20/2025 9:30 AM EDT Clinical Support [facility] [address] [place] [address] Viridiana Hernández RN 505 [place] [address] 03/12/2025 9:30 AM EDT Office Visit [facility] [address] [place] [address] Marjan Sams MD [address] [place] [address] documented as of this encounter Visit Diagnoses Not on filedocumented in this encounter Additional Health Concerns Assessment Noted Time PHQ-9 Depression Total Score: 4 02/13/20 24 9:45 AM EDT documented as of this encounter Care Teams Financial Services Education Consultant Relationship Specialty Start Date End Date Marjan Sams MD 230 [place] [address] PCP - General Family Medicine 06/04/18 Esteban Nice MD [address] [place] [address] 402 [place] [address] Rheumatology 05/21/24 Ashley Chanel OD 180 [place] [address] Optometry 05/21/24 Alban Koehler [address] [address] Podiatry 10/08/24 Dea Hewitt MD Rheumatology 10/06/24 documented as of this encounter
--- OUTSIDE RECORDS SUMMARY | 2025-02-04 15:19 | XMS_ITS | Encounter Summary ---
Author Organization [employer] Address 75 [facility] 7t [place] [address] Care Team Providers Care Inspector Hairspring Truing Name Role Phone Marjan Sams MD Primary Care Provider [phone]- [phone] Esteban Nice MD Unavailable Ashley Chanel OD Unavailable [phone] Alban Koehler Unavailable Reason for Visit * Reason Onset Date Comments Nurse Triage 09/18/2023 Encounter Details Date Type Department Care Team (Late st Contact Info) Description 09/18/2023 Telephone [facility] [address] [place] [address] [phone] Marjan Sams MD 230 [place], [place] [phone] Nurse Triage Social History Tobacco Use Types [...] 9:30 AM EDT Clinical Support [facility] [address] [place] [address] Viridiana Hernández RN 505 [place] [address] 03/12/2025 9:30 AM EDT Office Visit [facility] [address] [place] [address] Marjan Sams MD [address] [place] [address] documented as of this encounter Visit Diagnoses Not on filedocumented in this encounter Additional Health Concerns Assessment Noted Time PHQ-9 Depression Total Score: 0 11/04/19 10:28 AM EDT documented as of this encounter Care Teams Inspector Hairspring Truing Relationship Specialty Start Date End Date [place], MD Marjan 230 [place] [address] PCP - General Family Medicine 06/04/18 Esteban Nice MD [address] [place] [address] [address] [place] [address] Rheumatology 05/21/24 Ashley Chanel OD 180 [place] [address] Optometry 05/21/24 Alban Koehler [address] [address] Podiatry 10/08/24 Dea Hewitt MD Rheumatology 10/06/24 documented as of this encounter
--- OUTSIDE RECORDS SUMMARY | 2025-02-04 15:19 | XMS_ITS | Encounter Summary ---
Author Organization [employer] Address 75 [facility] 7t [place] [address] Care Team Providers Care Toy Designer Name Role Phone Marjan Sams MD Primary Care Provider [phone]- [phone] Esteban Nice MD Unavailable Ashley Chanel OD Unavailable [phone] Alban Koehler Unavailable Reason for Visit * Reason Comments Med Refill Encounter Details Date Type Department Care Team (Late st Contact Info) Description 02/04/2025 Refill [facility] [address] [place] [address] Marjan Sams MD 230 [place] [address] History of DVT (deep vein thrombosis) Social [...] Description 02/20/2025 9:30 AM EDT Clinical Support [facility] [address] [place] [address] Viridiana Hernández RN 505 [place] [address] 03/12/2025 9:30 AM EDT Office Visit [facility] [address] [place] [address] Marjan Sams MD [address] [place] [address] documented as of this encounter Visit Diagnoses Diagnosis History of DVT (deep vein thrombosis) documented in this encounter Additional Health Concerns Assessment Noted Time PHQ-9 Depression Total Score: 4 02/13/20 24 9:45 AM EDT documented as of this encounter Care Teams Toy Designer Relationship Specialty Start Date End Date Marjan Sams MD 230 [place] [address] PCP - General Family Medicine 06/04/18 Esteban Nice MD [address] [place] [address] [address] [place] [address] Rheumatology 05/21/24 Ashley Chanel OD 180 [place] [address] Optometry 05/21/24 Alban Koehler [address] [address] Podiatry 10/08/24 Dea Hewitt MD Rheumatology 10/06/24 documented as of this encounter
--- OUTSIDE RECORDS SUMMARY | 2025-02-04 15:19 | XMS_ITS | Encounter Summary ---
Author Organization [employer] Address [address] [facility] [address] 7t [place] [address] Care Team Providers Care Special Needs Child Caregiver Name Role Phone Marjan Sams MD Primary Care Provider +1- [phone] Esteban Nice MD Unavailable Ashley Chanel OD Unavailable [phone] Alban Koehler Unavailable Reason for Visit * Reason Onset Date Comments PT1 10/09/2024 Encounter Details Date Type Department Care Team (Late st Contact Info) Description 10/09/2024 Telephone [facility] [address] [place] [address] [phone] Marjan Sams MD 230 [place], [place] [phone] PT1 Social History Tobacco Use Types Packs/Day [...] Y/N: Yes Provider name or facility name: [address] [place] [address] [facility] Escort needed: Y/N: No Do you have a wheelchair: Y/N: No If yes- Manual or electric: N/A Visits: (2x monthly) documented in this encounter Plan of Treatment Upcoming Encounters Date Type Department Care Team (Late st Contact Info) Description 02/20/2025 9:30 AM EDT Clinical Support [facility] 230 [place] [address] Viridiana Hernández, RN 505 [place] [address] 03/12/2025 9:30 AM EDT Office Visit [facility] 230 [place] [address] Marjan Sams MD 230 [place] [address] documented as of this encounter Visit Diagnoses Not on filedocumented in this encounter Additional Health Concerns Assessment Noted Time PHQ-9 Depression Total Score: 4 02/13/20 24 9:45 AM EDT documented as of this encounter Care Teams Special Needs Child Caregiver Relationship Specialty Start Date End Date Marjan Sams MD 230 [place] [address] PCP - General Family Medicine 06/04/18 Esteban Nice MD [address] [place] [address] Rheumatology 05/21/24 Ashley Chanel OD 180 [place] [address] Optometry 05/21/24 Alban Koehler [address] [address] Podiatry 10/08/24 Dea Hewitt MD Rheumatology 10/06/24 documented as of this encounter
--- OUTSIDE RECORDS SUMMARY | 2025-02-04 15:19 | XMS_ITS | Encounter Summary ---
Author Organization [employer] Address 75 [facility] 7t [place] [address] Care Team Providers Care Roll Hauler Name Role Phone Marjan Sams MD Primary Care Provider +- [phone] Esteban Nice MD Unavailable Ashley Chanel OD Unavailable [phone] Alban Koehler Unavailable Encounter Details Date Type Department Care Team (Late st Contact Info) Description 06/29/2022 Abstract [facility] [address] [place] [address] Marjan Sams MD [address] [place] [address] Social History Tobacco Use Types Packs/Day Years [...] Description 02/20/2025 9:30 AM EDT Clinical Support [facility] [address] [place] [address] Viridiana Hernández RN 505 [place] [address] 03/12/2025 9:30 AM EDT Office Visit [facility] [address] [place] [address], [place] [address] Marjan Sams MD 230 [place] [address] documented as of this encounter Procedures Procedure [...] on filedocumented in this encounter Care Teams Roll Hauler Relationship Specialty Start Date End Date Marjan Sams MD 230 [place] [address] PCP - General Family Medicine 06/04/18 Esteban Nice MD [address] [place] [address] Rheumatology 05/21/24 Ashley Chanel OD 180 [place] [address] Optometry 05/21/24 Alban Koehler [address] [address] Podiatry 10/08/24 Dea Hewitt MD Rheumatology 10/06/24 documented as of this encounter
--- OUTSIDE RECORDS SUMMARY | 2025-02-04 15:19 | XMS_ITS | Encounter Summary ---
Author Organization [employer] Address 75 [facility] 7t [place] [address] Care Team Providers Care Selenium Plant Operator Name Role Phone Marjan Sams MD Primary Care Provider [phone]- [phone] Esteban Nice MD Unavailable Ashley Chanel OD Unavailable [phone] Alban Koehler Unavailable Reason for Visit * Reason Comments Med Refill Encounter Details Date Type Department Care Team (Late st Contact Info) Description 07/25/2023 Refill [facility] 230 [place] [address] Marjan Sams MD 230 [place] [address] Arthritis of both knees Social History Tobacco [...] 02/20/2025 9:30 AM EDT Clinical Support [facility] [address] [place] [address] Viridiana Hernández, KIMBERLY 505 [place] [address] 03/12/2025 9:30 AM EDT Office Visit [facility] [address] [place] [address] Marjan Sams MD [address] [place] [address] documented as of this encounter Visit Diagnoses Diagnosis Arthritis of both knees documented in this encounter Additional Health Concerns Assessment Noted Time PHQ-9 Depression Total Score: 0 11/04/19 23 10:28 AM EDT documented as of this encounter Care Teams Selenium Plant Operator Relationship Specialty Start Date End Date Marjan Sams MD [address] [place] [address] PCP - General Family Medicine 06/04/18 Esteban Nice MD [address] [place] [address] Rheumatology 05/21/24 Ashley Chanel OD 180 [place] [address] Optometry 05/21/24 Alban Koehler [address] [address] Podiatry 10/08/24 Dea Hewitt MD Rheumatology 10/06/24 documented as of this encounter
--- OUTSIDE RECORDS SUMMARY | 2025-02-04 15:20 | XMS_ITS | Encounter Summary ---
Author Organization [employer] Address 75 [facility] 7t [place] [address] Care Team Providers Care Deckhand Tuna Boat Name Role Phone Marjan Sams MD Primary Care Provider +1- [phone] Esteban Nice MD Unavailable Ashley Chanel OD Unavailable [phone] Alban Koehler Unavailable Reason for Visit * Reason Comments Med Refill Encounter Details Date Type Department Care Team (Late st Contact Info) Description 12/19/2024 Refill [facility] [address] [place] [address] Marjan Sams MD 230 [place] [address] History of DVT (deep vein thrombosis) Social [...] Clinical Support [facility] [address] [place] [address] Viridiana Hrenández RN 505 [place] [address] 03/12/2025 9:30 AM EDT Office Visit [facility] [address] [place] [address] Marjan Sams MD [address] [place] [address] documented as of this encounter Visit Diagnoses Diagnosis History of DVT (deep vein thrombosis) documented in this encounter Additional Health Concerns Assessment Noted Time PHQ-9 Depression Total Score: 4 02/13/20 24 9:45 AM EDT documented as of this encounter Care Teams Deckhand Tuna Boat Relationship Specialty Start Date End Date Marjan Sams MD 230 [place] [address] PCP - General Family Medicine 06/04/18 Esteban Nice MD [address] [place] [address] [address] [place] [address] Rheumatology 05/21/24 Ashley Chanel OD 180 [place] [address] Optometry 05/21/24 Alban Koehler [address] [address] Podiatry 10/08/24 Dea Hewitt MD Rheumatology 10/06/24 documented as of this encounter
--- OUTSIDE RECORDS SUMMARY | 2025-02-04 15:20 | XMS_ITS | Encounter Summary ---
Author Organization [employer] Address 75 [facility] 7t [place] [address] Care Team Providers Care Chipping Machine Operator Name Role Phone Marjan Sams MD Primary Care Provider +1- [phone] Esteban Nice MD Unavailable Ashley Chanel OD Unavailable [phone] Alban Koehler Unavailable Reason for Visit * Reason Onset Date Comments Med Refill 11/21/2024 Encounter Details Date Type Department Care Team (Late st Contact Info) Description 11/21/2024 Telephone [facility] [address] [place] [address] [phone] Marjan Sams MD 230 [place], [place] [phone] Med Refill Social History Tobacco Use Types [...] 5-325 MG tablet To be sent to: [facility]/pharmacy #[id number] [place] [address] - [address] [place] [address] documented in this encounter Plan of Treatment Upcoming Encounters Date Type Department Care Team ([facility] st Contact Info) Description 02/20/2025 9:30 AM EDT Clinical Support [facility] 230 [place] [address] Viridiana Hernández, RN 505 [place] [address] 03/12/2025 9:30 AM EDT Office Visit [facility] 230 [place] [address] Marjan Sams MD 230 [place] [address] documented as of this encounter Visit Diagnoses Not on filedocumented in this encounter Additional Health Concerns Assessment Noted Time PHQ-9 Depression Total Score: 4 02/13/20 24 9:45 AM EDT documented as of this encounter Care Teams Chipping Machine Operator Relationship Specialty Start Date End Date Marjan Sams MD 230 [place] [address] PCP - General Family Medicine 06/04/18 Esteban Nice MD [address] [place] [address] Rheumatology 05/21/24 Ashley Chanel OD 180 [place] [address] Optometry 05/21/24 Alban Koehler [address] [address] Podiatry 10/08/24 Dea Hewitt MD Rheumatology 10/06/24 documented as of this encounter
--- OUTSIDE RECORDS SUMMARY | 2025-02-04 15:20 | XMS_ITS | Clinical Summary ---
Author Organization [employer] Address [address] [facility] 7t [place] [address] Care Team Providers Care Administrative Fellow Name Role Phone Marjan Sams MD Primary Care Provider [phone] Esteban Nice MD Unavailable Ashley Chanel OD Unavailable [phone] Alban Koehler Unavailable Allergies No known active [...] Whiteside RN Problem Noted Date Diagnosed Date Mass of left lung 01/28/2025 Overview (02/04/2025): -CT scan for tobacco screening 01/27/25 Impression: [...] Will contact pulmonology for follow up recommendations. -seen by Dr. Fu 02/03/25 Left lung mass. Will obtain PET-CT, PFT, and transcutaneous biopsy Osteopenia of multiple sites 10/29/2024 Overview (10/29/2024): [...] ortho placed 09/03/24 -Seen by Dr. Koehler deputy brand inspector at [facility] [employer] , no changes Assessment & Plan (10/01/2024 [...] care facilitated by [facility] in [place] -dental home is [facility] -health care proxy: pt reports has at home 06/25/23 Assessment & Plan (10/01/2024 2:58 PM EDT): -next comprehensive annual evaluation due after 10/01/25 -eye care facilitated by [facility] in [place] -dental home is [facility] -health care proxy: pt reports has at home 06/25/23 Assessment & Plan (06/25/2023 11:24 AM EST): -next physical exam due after 06/25/24 -eye care facilitated by [facility] in [place] -dental home is [facility] -health care proxy: pt reports has [...] as pharmacomtherapy, [facility] smoking cessation group, and [facility] pharmacy smoking cessation clinic Discussed USPSTF [...] as pharmacomtherapy, [facility] smoking cessation group, and [facility] pharmacy smoking cessation clinic Discussed USPSTF [...] as pharmacomtherapy, [facility] smoking cessation group, and [facility] pharmacy smoking cessation clinic Discussed USPSTF [...] oral ulcers, bilateral elbow arthritis, ++ URIAH, 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 Rodriguez 04/15/24 Discussed the possibility of adding DMARDs such as Benlysta. Patient is not interested. Adjust hydroxychloroquine dose to 400 mg daily x5 days a week and 200 mg daily x2 days a week Labs before next visit in -followed by [facility]. Ashley Chanel note from 04/20/24 reviewed -seen by Dr. Negin Hewitt MD 10/03/24, note revived. No changes. 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 Rodriguez 04/15/24 Discussed the possibility of adding DMARDs such as Benlysta. Patient is not interested. Adjust hydroxychloroquine dose to 400 mg daily x5 days a week and 200 mg daily x2 days a week Labs before next visit in 6 -followed by [facility] . Ashley Spatcher note from 04/20/24 reviewed Assessment & Plan [...] Diagnosed Date Resolved Date Dietary counseling 10/01/2024 5 Assessment & Plan (10/01/2024 3:14 PM EDT): [...] Encounters Date Type Department Care Team Description 02/04/2025 Refill [facility] [address] [place] [address] Marjan Sams MD History of DVT (deep vein thrombosis) 01/28/2025 Results Follow-Up [facility] [address] [place] [address] Lung Screening Low dose 01/23/2025 Orders Only [facility] External Provider, [facility] Abnormal CT scan, lung (Primary Dx); Tobacco dependence syndrome 01/15/2025 Refill [facility] [address] [place] [address] Marjan Sams MD Arthritis of both knees 12/26/2024 Telephone [facility] [address] [place] [address] Marjan Sams MD March Recalls 12/26/2024 Travel 12/19/2024 Refill [facility] [address] [place] [address] Marjan Sams MD History of DVT (deep vein thrombosis) 12/18/2024 Refill [facility] [address] [place] [address] Marjan Sams MD Arthritis of both knees 11/21/2024 Refill [facility] [address] [place] [address] Viridiana Hernández, RN Arthritis of both knees 11/21/2024 Telephone [facility] [address] [place], [place] [phone] Marjan Sams MD Med Refill 11/14/2024 9:30 AM EDT Clinical Support [facility] [address] [place] [address] Viridiana Hernández, KIMBERLY Chronically on opiate therapy (Primary Dx) 11/14/2024 [...] 9:53 AM EDT Respiratory Rate 20 10/01/2024 9:5 3 AM EDT Oxygen Saturation 95% 10/01/2024 9:5 [...] Description 02/20/2025 9:30 AM EDT Clinical Support [facility] [address] [place] [address] Viridiana Hernández RN [address] [place] [address] 03/12/2025 9:30 AM EDT Office Visit [facility] [address] [place] [address] Marjan Sams MD [address] [place] [address] Health Maintenance Due Date Last Done Comments [...] Laterality Modality Lung Computed Tomogra phy 01/24/2025 7:4 2 PM EDT Narrative 01/24/2025 7:43 PM EDT [place] [address] [address] Scan Report Signed with Addenda Patient: Tammy Moeller MR#: [id number] : 1965 Acct:[id number] Age/Sex: 59 / F ADM Date: 01/23/25 Loc: HO.CT Attending Dr: Magdalene Peoples NP Ordering Physician: Awa Heredia PA-C Date of Service: 01/23/25 Procedure(s): CT lung screening Accession Number(s): [id number] cc: Marjan Sams MD; Awa Heredia PA-C Report Number: [id number]: Total DLP = 41.00 mGy-cm ADDENDUM This [...] in OV> 01/24/251942 DD/ 41 TD/TT: 01/24/251941 Automotive Consultant: Procedure Note Donotuseinterpreter, Image - 01/27/[address] [place] [address] [address] Scan Report Signed with Addenda Patient: Tammy Moeller#: [id number] : 1965Acct:[id number] Age/Sex: 59 / FADM Date: 01/23/25 Loc: .CT Attending Dr: Magdalene Peoples TUBE DRAW HELPER Ordering Physician: Awa Heredia PA-C Date of Service: 01/23/25 Procedure(s): CT lung screening Accession Number(s): [id number] cc: Marjan Sams MD; Awa Heredia PA-C Report Number: [id number]: Total DLP = 41.00 mGy-cm ADDENDUM This [...] in OV> 01/24/251942 DD/ 41 TD/TT: 01/24/251941 Automotive Consultant: [facility] External Provider IMG CT PROCEDURES Edited Result [...] - 11/14/2024 9:00 AM EDT .UTOX cup Lot#[id number] Exp. 04/03/26 Internal Pass Control Marjan Sams MD POINT OF CARE TEST ENTER/E DIT ORDERABLES Final Result * BI Mammogram Diagnostic Tomosynthesis Bilateral (03/25/2024 2:00 PM EDT) Anatomical Region Laterality Modality Breast Bilateral Mammography 03/25/2024 2:00 PM EDT Narrative 03/25/2024 2:50 PM EDT [address] [place] [address] Mammography Report Signed Patient: Tammy Moeller MR#: [id number] : 1965 Acct:[id number] Age/Sex: 58 / F ADM Date: 03/25/24 Loc: HO.MAMMO Attending Dr: Marjan Sams MD Ordering Physician: Marjan Sams MD Results: 2B enign Findings Date of Service: 03/25/24 Follow Up: 1 Year From [facility] Mammogram Procedure(s): MM tomosynthesis diagnostic BI Accession Number(s): [id number] cc: Marjan Sams MD EXAMINATION: MM DIAGNOSTIC [...] 03/25/24 1447 DD/ 1400 TD/TT: 03/25/24 1422 Automotive Consultant: Procedure Note Donotuseinterpreter, Image - 03/25/2024 [facility] [address] [place] [address] Mammography Report Signed Patient: Tammy Moeller#: [id number] : 1965Acct:[id number] Age/Sex: 58 / FADM Date: 03/25/24 Loc: HO.MAMMO Attending Dr: Marjan Sams MD Ordering Physician: Marjan Sams MDResults: 2B enign Findings Date of Service: 03/25/24Follow Up: 1 Year From Orig inal Mammogram Procedure(s): MM tomosynthesis diagnostic BI Accession Number(s): [id number] cc: Marjan Sams MD EXAMINATION: MM DIAGNOSTIC [...] 03/25/24 1447 DD/ 1400 TD/TT: 03/25/24 1422 Automotive Consultant: us Mrajan Sams MD [facility] [place] BI PROCEDURES Final Re sult * HIV-1/2 Antigen and Antibodies, Fourth Generation, with Reflexes (02/13/2024 10:36 AM EDT) HIV AB/AG Nonreactive Nonreactive [facility] Comment:HIV-1 p24 Ag and/or HIV-1/HIV-2 Ab not detected.A test result that is nonreactive does not exclude thepossibility of exposure to or infection with HIV-1 and/orHIV-2. Nonreactive results in this assay for individualswith prior exposure to HIV-1 and/or HIV-2 may be due toantigen and antibody levels that are below the limit ofdetection of this assay.The [employer] HIV Ag/Ab Combo assay result andsupplemental assay results should be interpreted inconjunction with the patient's clinical presentation,history and other laboratory results. If the results areinconsistent with clinical evidence, additional testing issuggested to confirm the result. Blood Venous blood specimen / Unknown 02/13/2024 10:36 AM EDT 02/13/2024 11:19 AM EDT Marjan Sams MD LAB BLOOD ORDERABLES Final Result [facility] [address] [place] [phone] * (ABNORMAL) Lipid Panel, Standard (02/13/2024 10:36 AM EDT) Triglycerides 115 <150 mg/dL [facility] Comment:Desirable Triglyceri de: less than 150 mg/dLBorderline High Triglyceride 150-199 mg/dLHigh Triglyceride: 200-499 mg/dLVery High Triglyceride: greater than or equal to 5OO mg/dL Cholesterol 178 <200 mg/dL [facility] Comment:Desirable Cholestero l: less than 200 mg/dLBorderline High Cholesterol: 200-239 mg/dLHigh Cholesterol: greater than 239 mg/dL LDL Cholesterol Calculated 114(H) <100 mg/dL [facility] Comment:Desirable LDL: less than 100 mg/dLNear Optimal/Above Optimal LDL: 110- 129 mg/dLBorderline High LDL: 130-159 mg/dLHigh LDL: 160-189 mg/dLVery High LDL: greater than or equal to 190 mg/dL HDL Cholesterol 41 >40 mg/dL [facility] Comment:Desirable HDL: great er than 40 mg/dL Note: This HDL assay may give artificially low results in patients with liver disease. Blood Venous blood specimen / Unknown 02/13/2024 10:36 AM EDT 02/13/2024 11:19 AM EDT Marjan Sams MD LAB BLOOD ORDERABLES Final Result [facility] [address] [place] [address] [phone] * Thinprep PAP, HPV mRNA E6/E7 RFX HPV 16,18/45, Chlamydia/N. Gonorrhoeae (11/03/2022 12:00 AM EDT) Clinical Information: ROUTINE [facility] LMP: NONE GIVEN [place] [employer] Prev. PAP: NONE GIVEN [place] [employer] Prev. BX: NO [place] [employer] SOURCE: None given [facility] Statement Of Adequacy: SATISFACTORY FOR EVALUATION [facility] Interpretation/Re sult: [employer] Comment: Negative for intraepithelial lesion or malignancy. Atrophic pattern; predominantly parabasal cells Hay Stacker: [employer] Comment: WXW, CT(ASCP) CT Screening Location: [place] [address] (Always Message) [facility] [employer] Comment: EXPLANATORY NOTE: The Pap is a [...] HPV nRNA E6/E7 Not Detected Not Detected [facility] Comment: Methodology: Fire Extinguisher Installer-Mediated Amplification This assay detects E6/E7 viral messenger RNA (mRNA) from 14 high-risk HPV types (16,18,31,33,35,39,45,51,52,56,58,59,66,68). Cervical sources are required for HPV testing. If a vaginal source from a patient who has had a total hysterectomy with removal of cervix was submitted, please contact the testing laboratory for alternative testing options. For additional information, please refer to http://education.[employer]/faq/IFT171t5 (This link if provided for information/ educational purposes only.) Chlamydia trachomatis RNA, TMA, Urogenital NOT DETECTED NOT DETECTED [facility] Neisseria gonorrhoeae RNA, TMA, Urogenital NOT DETECTED NOT DETECTED [facility] (Always Message) [employer] [facility] [place] [facility] Comment: The analytical performance characteristics of this assay, when used to test SurePath(TM) specimens have been determined by [facility]. The modifications have not been cleared or approved by the FDA. This assay has been validated pursuant to the CLIA regulations and is used for clinical purposes. For additional information, please refer to https://Fortem.[employer]/faq/QGF883 (This link is being provided for information/ educational purposes only.) 11/03/2022 11/06/2022 9:1 5 PM EDT Narrative [facility] - 11/09/2022 10:33 AM EDT FASTING: UNKNOWN Marjan Sams MD LAB PATHOLOGY ORDERABLES F inal Result [facility] [address], [place] [address] [facility] [address] [place] [address] * Hepatitis C Antibody with Reflex to HCV, RNA, Quantitative, Real-Time PCR (10/31/2022 8:11 AM EDT) Hepatitis C Antibody NON-REACT CHOCO NON-REACT CHOCO [facility] [place] [facility] Index 0.43 <1.00 [facility] [place] [facility] Comment: HCV antibody was non-reactive. There is no laboratory evidence of HCV infection. In most cases, no further action is required. However, if recent HCV exposure is suspected, a test for HCV RNA (test code 11499) is suggested. For additional information please refer to http://Fort[employer]/faq/TRS45f4 (This link is being provided for informational/ educational purposes only.) Blood Venous blood specimen / Unknown 10/31/2022 8:11 AM EDT 10/31/2022 8:11 AM EDT Narrative [facility] - 10/31/2022 9:53 PM EDT FASTING:YES FASTING: YES Marjan Sams MD LAB BLOOD ORDERABLES Final Result [facility] [address], [place] [address] [facility] [place] [facility] [address] [place] [address] * Hm Colonoscopy (03/30/2017 12:40 PM EDT) Historical Provider HEALTH MAINTENANCE Final Result from Last 3 Months or Most Recently Relevant to Health Maintenance Insurance [employer] MEDICARE REPLACEMENT Advance Directives Documents on File Type Date Recorded Patient Jockey Room Custodian Expl anation Advance Directives and Living Will 10/01/2024 12:27 PM HEALTH CARE PROXY Care Teams Administrative Fellow Relationship Specialty Start Date End Date Marjan Sams MD [address] [place] [address] PCP - General Family Medicine 06/04/18 Esteban Nice MD [address] [place] [address] [address] [place] [address] Rheumatology 05/21/24 Ashley Chanel OD [address] [place] [address] Optometry 05/21/24 Alban Koehler [address] [address] Podiatry 10/08/24 Dea Hewitt MD Rheumatology 10/06/24
== END 2025-02-04 12:58 | disposition home or self-care (01) ==
LOC: HO.RESP 12:57
PROVIDERS: PCP Family Medicine; Visit Provider Physician Assistant Medical
DX: R91.8 Other nonspecific abnormal finding of lung field (principal); F17.210 Nicotine dependence, cigarettes, uncomplicated; R19.8 Other specified symptoms and signs involving the digestive system and abdomen
CPT/HCPCS: 94010; 94640; 94727; 94729

== ENCOUNTER → 2025-02-04 13:15 | Outpatient (BNV) | payer MEDICARE, SELFPAY | PROVIDERS: PCP Family Medicine; Visit Provider Internal Medicine Pulmonary Disease | DX: R91.8 Other nonspecific abnormal finding of lung field (principal) | CPT/HCPCS: 94060; 94727; 94729 ==

== ENCOUNTER 2025-02-17 08:56 | Day surgery (SDC) | payer MEDICARE, SELFPAY ==
--- OUTSIDE RECORDS SUMMARY | 2025-02-05 10:07 | XMS_ITS | Encounter Summary ---
Author Organization [employer] Address 75 [facility] 7t [place] [address] Care Team Providers Care Hoist Cylinder Loader Name Role Phone Marjan Sams MD Primary Care Provider [phone] Esteban Nice MD Unavailable Ashley Chanel OD Unavailable [phone] Alban Koehler Unavailable Reason for Visit * Reason Onset Date Comments Uber Set-up 01/23/2024 Encounter Details Date Type Department Care Team (Late st Contact Info) Description 01/23/[address] [facility] [address] [place], [place] [phone] Marjan Sams MD [address] [place] [address] Uber Set-up Social History Tobacco Use Types [...] request a uber set-up for 01/29 appt copywriter did confirm address and call back number documented in this encounter Plan of Treatment Upcoming Encounters Date Type Department Care Team (Late st Contact Info) Description 02/20/2025 9:30 AM EDT Clinical Support [facility] [address] [place] [address] Viridiana Hernández RN [address] [place] [address] 03/12/2025 9:30 AM EDT Office Visit [facility] [address] [place] [address] Marjan Sams MD [address] [place] [address] documented as of this encounter Visit Diagnoses Not on filedocumented in this encounter Additional Health Concerns Assessment Noted Time PHQ-9 Depression Total Score: 0 11/04/19 10:28 AM EDT documented as of this encounter Care Teams Hoist Cylinder Loader Relationship Specialty Start Date End Date Latrell, MD Marjan [address] [place] [address] PCP - General Family Medicine 06/04/18 Esteban Nice MD [address] [place] [address] [address] [place] [address] Rheumatology 05/21/24 Ashley Chanel OD [address] [place] [address] Optometry 05/21/24 Alban Koehler [address] [address] Podiatry 10/08/24 Dea Hewitt MD Rheumatology 10/06/24 documented as of this encounter
--- OUTSIDE RECORDS SUMMARY | 2025-02-05 10:07 | XMS_ITS | Encounter Summary ---
Author Organization [employer] Address 75 [facility] 7t [place] [address] Care Team Providers Care Painter And Body Mechanic Apprentice Name Role Phone Marjan Sams MD Primary Care Provider [phone] Esteban Nice MD Unavailable Ashley Chanel OD Unavailable [phone] Alban Koehler Unavailable Reason for Visit * Reason Onset Date Comments Med Refill 01/19/2023 Encounter Details Date Type Department Care Team (Late st Contact Info) Description 01/19/2023 Telephone [facility] [address] [place] [phone] Marjan Sams MD [address] [place], [place] [phone] Med Refill Social History Tobacco Use Types [...] (Percocet) 5-325 MG tablet Please sent to [facility]/pharmacy #[id number] - [place], [place] - [address] [facility] [facility] documented in this encounter Plan of Treatment Upcoming Encounters Date Type Department Care Team (Late st Contact Info) Description 02/20/2025 9:30 AM EDT Clinical Support [facility] [address] [place] [address] Viridiana Hernández RN [address] [place] [address] 03/12/2025 9:30 AM EDT Office Visit [facility] [address] [place] [address] Marjan Sams MD [address] [place] [address] documented as of this encounter Visit Diagnoses Not on filedocumented in this encounter Additional Health Concerns Assessment Noted Time PHQ-9 Depression Total Score: 0 11/04/19 23 10:28 AM EDT documented as of this encounter Care Teams Painter And Body Mechanic Apprentice Relationship Specialty Start Date End Date Marjan Sams MD [address] [place] [address] PCP - General Family Medicine 06/04/18 Esteban Nice MD [address] [place] [address] [place] [address] Rheumatology 05/21/24 Ashley Chanel OD [address] [place] [address] Optometry 05/21/24 Alban Koehler [address] [address] Podiatry 10/08/24 Dea Hewitt MD Rheumatology 10/06/24 documented as of this encounter
--- OUTSIDE RECORDS SUMMARY | 2025-02-05 10:07 | XMS_ITS | Encounter Summary ---
Author Organization [email or web address] Address 75 [facility] 7t [place] [address] Care Team Providers Care Pharmaceutical Plant Operator Name Role Phone Marjan Sams MD Primary Care Provider [phone] Esteban Nice MD Unavailable Ashley Chanel OD Unavailable [phone] Alban Koehler Unavailable Reason for Visit * Reason Comments Med Refill Encounter Details Date Type Department Care Team (Late st Contact Info) Description 02/04/2025 Refill [facility] [address] [place] [address] Marjan Sams MD [address] [place] [address] History of DVT (deep vein thrombosis) Social [...] is your housing situation today? I have ylnda sing 02/13/[address] you [...] EDT Clinical Support [facility] [address] [place] [address] Viridiana Hernández RN [address] [place] [address] 03/12/2025 9:30 AM EDT Office Visit [facility] [address] [place] [address] Marjan Sams MD [address] [place] [address] documented as of this encounter Visit Diagnoses Diagnosis History of DVT (deep vein thrombosis) documented in this encounter Additional Health Concerns Assessment Noted Time PHQ-9 Depression Total Score: 4 02/13/20 24 9:45 AM EDT documented as of this encounter Care Teams Pharmaceutical Plant Operator Relationship Specialty Start Date End Date Marjan Sams MD [address] [place] [address] PCP - General Family Medicine 06/04/18 Esteban Nice MD [address] [place] [address] [address] [place] [address] Rheumatology 05/21/24 Ashley Chanel OD [address] [place] [address] Optometry 05/21/24 Alban Koehler [address] [address] Podiatry 10/08/24 Dea Hewitt MD Rheumatology 10/06/24 documented as of this encounter
--- OUTSIDE RECORDS SUMMARY | 2025-02-05 10:07 | XMS_ITS | Encounter Summary ---
Author Organization [employer] Address 75 [facility] 7t [place] [address] Care Team Providers Care Gas Line Servicer Name Role Phone Marjan Sams MD Primary Care Provider [phone] Esteban Nice MD Unavailable Ashley Chanel OD Unavailable [phone] Alban Koehler Unavailable Reason for Visit * Reason Onset Date Comments Med Refill 01/21/2024 Encounter Details Date Type Department Care Team (Late st Contact Info) Description 01/21/2024 Telephone [facility] [address] [place] [address] [phone] Marjan Sams MD [address] [place], [place] [phone] Med Refill Social History Tobacco Use Types [...] tablet To be sent to: [facility] documented in this encounter Plan of Treatment Upcoming Encounters Date Type Department Care Team (Late st Contact Info) Description 02/20/2025 9:30 AM EDT Clinical Support [facility] [address] [place] [address] Viridiana Hernández RN [address] [place] [address] 03/12/2025 9:30 AM EDT Office Visit [facility] [address] [place] [address] Marjan Sams MD [address] [place] [address] documented as of this encounter Visit Diagnoses Not on filedocumented in this encounter Additional Health Concerns Assessment Noted Time PHQ-9 Depression Total Score: 0 06/02/20 23 10:28 AM EDT documented as of this encounter Care Teams Gas Line Servicer Relationship Specialty Start Date End Date Marjan Sams MD [address] [place] [address] PCP - General Family Medicine 06/04/18 Esteban Nice MD [address] [place] [address] [address] [place] [address] Rheumatology 05/21/24 Ashley Chanel OD [address] [place] [address] Optometry 05/21/24 Alban Koehler [address] [address] Podiatry 10/08/24 Dea Hewitt MD Rheumatology 10/06/24 documented as of this encounter
--- OUTSIDE RECORDS SUMMARY | 2025-02-05 10:07 | XMS_ITS | Encounter Summary ---
Author Organization [employer] Address 75 [facility] 7t [place] [address] Care Team Providers Care Grocery Specialist Name Role Phone Marjan Sams MD Primary Care Provider [phone] Esteban Nice MD Unavailable Ashley Chanel OD Unavailable [phone] Alban Koehler Unavailable Reason for Visit * Reason Comments Med Refill Encounter Details Date Type Department Care Team (Late st Contact Info) Description 10/19/2023 Refill [facility] [address] [place] [address] Lluvia Mendoza MD [address] [place] [address] History of DVT (deep vein thrombosis) Social [...] Description 02/20/2025 9:30 AM EDT Clinical Support [facility] [address] [place] [address] Viridiana Hernández, KIMBERLY 505 [place] [address] 03/12/2025 9:30 AM EDT Office Visit [address] [address] Marjan Sams MD [address] [place] [address] documented as of this encounter Visit Diagnoses Diagnosis History of DVT (deep vein thrombosis) documented in this encounter Additional Health Concerns Assessment Noted Time PHQ-9 Depression Total Score: 0 11/04/19 23 10:28 AM EDT documented as of this encounter Care Teams Grocery Specialist Relationship Specialty Start Date End Date Marjan Sams MD [address] [place] [address] PCP - General Family Medicine 06/04/18 Esteban Nice MD [address] [place] [address] Rheumatology 05/21/24 Ashley Chanel OD 180 [place] [address] Optometry 05/21/24 Alban Koehler [address] [address] Podiatry 10/08/24 Dea Hewitt MD Rheumatology 10/06/24 documented as of this encounter
--- OUTSIDE RECORDS SUMMARY | 2025-02-05 10:07 | XMS_ITS | Encounter Summary ---
Author Organization [employer] Address 75 [facility] 7t [place] [address] Care Team Providers Care Recycling Technician Name Role Phone Marjan Sams MD Primary Care Provider [phone]- [phone] Esteban Nice MD Unavailable Ashley Chanel OD Unavailable [phone] lAban Koehler Unavailable Reason for Visit * Reason Onset Date Comments Med Refill 02/21/2024 Encounter Details Date Type Department Care Team (Late st Contact Info) Description 02/21/2024 Telephone [facility] MEDICINE [address] [place] [address] [phone] Marjan Sams MD [address] [place], [place] [phone] Med Refill Social History Tobacco Use Types [...] 5-325 MG tablet To be sent to: [facility]/pharmacy #[address] [place] [address] - [address] [place] [address] documented in this encounter Plan of Treatment Upcoming Encounters Date Type Department Care Team (Late st Contact Info) Description 02/20/2025 9:30 AM EDT Clinical Support [facility] MEDICINE [address] [place] [address] Viridiana Hernández RN 505 [place] [address] 03/12/2025 9:30 AM EDT Office Visit [facility] MEDICINE [address] [place] [address] Marjan Sams MD [address] [place] [address] documented as of this encounter Visit Diagnoses Not on filedocumented in this encounter Additional Health Concerns Assessment Noted Time PHQ-9 Depression Total Score: 4 02/13/20 24 9:45 AM EDT documented as of this encounter Care Teams Recycling Technician Relationship Specialty Start Date End Date Marjan Sams MD [address] [place] [address] PCP - General Family Medicine 06/04/18 Esteban Nice MD [address] [place] [address] 402 [place] [address] Rheumatology 05/21/24 Ashley Chanel OD 180 [place] [address] Optometry 05/21/24 Alban Koehler [address] [address] Podiatry 10/08/24 Dea Hewitt MD Rheumatology 10/06/24 documented as of this encounter
--- OUTSIDE RECORDS SUMMARY | 2025-02-05 10:07 | XMS_ITS | Encounter Summary ---
Author Organization [employer] Address [address] [facility] [address] 7t [place] [address] Care Team Providers Care Insurance Advisor Name Role Phone Marjan Sams MD Primary Care Provider [phone] Esteban Nice MD Unavailable Ashley Chanel OD Unavailable [phone] Alban Koehler Unavailable Encounter Details Date Type Department Care Team (Late st Contact Info) Description 03/22/2023 Abstract [facility] MEDICINE 230 [place] [address] Marjan Sams MD 230 [place] [address] Preventative health care; Osteoarthritis of knee, unspecified [...] Description 02/20/2025 9:30 AM EDT Clinical Support [facility] MEDICINE [address] [place] [address] Viridiana Hernández RN 505 [place] [address] 03/12/2025 9:30 AM EDT Office Visit [facility] MEDICINE [address] [place] [address] Marjan Sams MD [address] [place] [address] documented as of this encounter Visit Diagnoses Diagnosis Preventative health care Routine general medical examination at a health care facility Osteoarthritis of knee, unspecified laterality, unspecified osteoarthritis type documented in this encounter Additional Health Concerns Assessment Noted Time PHQ-9 Depression Total Score: 0 11/04/19 23 10:28 AM EDT documented as of this encounter Care Teams Insurance Advisor Relationship Specialty Start Date End Date Marjan Sams MD [address] [place] [address] PCP - General Family Medicine 06/04/18 Esteban Nice MD [address] [place] [address] Rheumatology 05/21/24 Ashley Chanel OD 180 [place] [address] Optometry 05/21/24 Alban Koehler [address] [address] Podiatry 10/08/24 Dea Hewitt MD Rheumatology 10/06/24 documented as of this encounter
--- OUTSIDE RECORDS SUMMARY | 2025-02-05 10:07 | XMS_ITS | Encounter Summary ---
Author Organization [employer] Address 75 [facility] 7t [place] [address] Care Team Providers Care Physiologist Name Role Phone Marjan Sams MD Primary Care Provider [phone]- [phone] Esteban Nice MD Unavailable Ashley Chanel OD Unavailable [phone] Alban Koehler Unavailable Encounter Details Date Type Department Care Team (Late st Contact Info) Description 06/29/2022 Abstract [facility] MEDICINE [address] [place] [address] Marjan Sams MD [address] [place] [address] Social History Tobacco Use Types Packs/Day Years [...] Description 02/20/2025 9:30 AM EDT Clinical Support [facility] MEDICINE [address] [place] [address] Viridiana Hernández RN 505 [place] [address] 03/12/2025 9:30 AM EDT Office Visit [facility] MEDICINE [address] [place] [address], [place] [address] Marjan Sams MD 230 [place] [address] documented as of this encounter Procedures Procedure [...] on filedocumented in this encounter Care Teams Physiologist Relationship Specialty Start Date End Date Marjan Sams MD [address] [place] [address] PCP - General Family Medicine 06/04/18 Esteban Nice MD [address] [place] [address] Rheumatology 05/21/24 Ashley Chanel OD 180 [place] [address] Optometry 05/21/24 Alban Koehler [address] [address] Podiatry 10/08/24 Dea Hewitt MD Rheumatology 10/06/24 documented as of this encounter
--- OUTSIDE RECORDS SUMMARY | 2025-02-05 10:08 | XMS_ITS | Encounter Summary ---
Author Organization [employer] Address 75 [facility] [address] 7t [place] [address] Care Team Providers Care Radio Interference Trouble Shooter Name Role Phone Marjan Sams MD Primary Care Provider [phone]- [phone] Esteban Nice MD Unavailable Ashley Chanel OD Unavailable [phone] Alban Koehler Unavailable Reason for Visit * Reason Onset Date Comments PT1 10/09/2024 Encounter Details Date Type Department Care Team (Late st Contact Info) Description 10/09/2024 Telephone [facility] MEDICINE [address] [place] [address] [phone] Marjan Sams MD 230 [place], [place] [phone] PT1 Social History Tobacco Use Types Packs/Day [...] Y/N: Yes Provider name or facility name: [address] [place] [address] [facility] Escort needed: Y/N: No Do you have a wheelchair: Y/N: No If yes- Manual or electric: N/A Visits: (2x monthly) documented in this encounter Plan of Treatment Upcoming Encounters Date Type Department Care Team (Late st Contact Info) Description 02/20/2025 9:30 AM EDT Clinical Support [facility] MEDICINE 230 [place] [address] Viridiana Hernández, RN 505 [place] [address] 03/12/2025 9:30 AM EDT Office Visit [facility] MEDICINE 230 [place] [address] Marjan Sams MD 230 [place] [address] documented as of this encounter Visit Diagnoses Not on filedocumented in this encounter Additional Health Concerns Assessment Noted Time PHQ-9 Depression Total Score: 4 02/13/20 24 9:45 AM EDT documented as of this encounter Care Teams Radio Interference Trouble Shooter Relationship Specialty Start Date End Date Marjan Sams MD 230 [place] [address] PCP - General Family Medicine 06/04/18 Esteban Nice MD [address] [place] [address] Rheumatology 05/21/24 Ashley Chanel OD 180 [place] [address] Optometry 05/21/24 Alban Koehler [address] [address] Podiatry 10/08/24 Dea Hewitt MD Rheumatology 10/06/24 documented as of this encounter
--- OUTSIDE RECORDS SUMMARY | 2025-02-05 10:08 | XMS_ITS | Encounter Summary ---
Author Organization [employer] Address 75 [facility] 7t [place] [address] Care Team Providers Care Population Geneticist Name Role Phone Marjan Sams MD Primary Care Provider [phone]- [phone] Esteban Nice MD Unavailable Ashley Chanel OD Unavailable [phone] Alban Koehler Unavailable Reason for Visit * Reason Comments Med Refill Encounter Details Date Type Department Care Team (Late st Contact Info) Description 12/19/2024 Refill [facility] [address] [place] [address] Marjan Sams MD 230 [place] [address] History of DVT (deep vein thrombosis) Social [...] 02/20/2025 9:30 AM EDT Clinical Support [facility] [address] [place] [address] Viridiana Hernández RN 505 [place] [address] 03/12/2025 9:30 AM EDT Office Visit [facility] [address] [place] [address] Marjan Sams MD [address] [place] [address] documented as of this encounter Visit Diagnoses Diagnosis History of DVT (deep vein thrombosis) documented in this encounter Additional Health Concerns Assessment Noted Time PHQ-9 Depression Total Score: 4 02/13/20 24 9:45 AM EDT documented as of this encounter Care Teams Population Geneticist Relationship Specialty Start Date End Date Marjan Sams MD 230 [place] [address] PCP - General Family Medicine 06/04/18 Esteban Nice MD [address] [place] [address] [address] [place] [address] Rheumatology 05/21/24 Ashley Chanel OD 180 [place] [address] Optometry 05/21/24 Alban Koehler [address] [address] Podiatry 10/08/24 Dea Hewitt MD Rheumatology 10/06/24 documented as of this encounter
--- OUTSIDE RECORDS SUMMARY | 2025-02-05 10:08 | XMS_ITS | Clinical Summary ---
Author Organization [employer] Address 75 [facility] 7t [place] [address] Care Team Providers Care Successfactors Consultant Name Role Phone Marjan Sams MD Primary Care Provider [phone] Esteban Nice MD Unavailable Ashley Chanel OD Unavailable [phone] Alban Koehler Unavailable Allergies No known active [...] opioid reversal. 2 each 02/13/20 24 Active Fluticasone Furoate-Vilant sugar (Breo [...] severe pain. 56 tablet 01/16/20 25 Active Aspirin Low Dose 81 MG EC tabletIndicati ons:History of DVT (deep vein thrombosis) TAKE 1 TABLET (81 MG) BY MOUTH ONCE PER DAY. 90 tablet 3 02/05/20 25 Active aspirin (Aspirin Low Dose) 81 MG EC tabletIndicati ons:History of DVT (deep vein thrombosis) Take 1 tablet (81 mg) by mouth Once per day. 90 tablet 3 02/13/20 24 2024 Discontinued oxyCODONE-acet aminophen (Percocet) 5-325 MG tabletIndicati ons:Arthritis [...] o f colon 10/01/2024 Overview (10/01/2024): Done 2017, due in 2026 Assessment & Plan (10/01/2024 2:59 PM EDT): Done 2017, due in 2026 Closed fracture of left [...] ortho placed 09/03/24 -Seen by Dr. Koehler neck skewer at [facility] , no changes Assessment & Plan (10/01/2024 [...] care facilitated by [facility] in [facility] is [facility] -health care proxy: pt reports has at home 06/25/23 Assessment & Plan (10/01/2024 2:58 PM EDT): -next comprehensive annual evaluation due after 10/01/25 -eye care facilitated by [facility] in [facility] is [facility] -health care proxy: pt reports has at home 06/25/23 Assessment & Plan (06/25/2023 11:24 AM EST): -next physical exam due after 06/25/24 -eye care facilitated by [facility] in [facility] is [facility] [...] [facility] smoking cessation group, and [facility] pharmacy smoking cessation clinic Discussed USPSTF [...] [facility] smoking cessation group, and [facility] pharmacy smoking cessation clinic Discussed USPSTF [...] [facility] smoking cessation group, and [facility] pharmacy smoking cessation clinic Discussed USPSTF [...] oral ulcers, bilateral elbow arthritis, ++ URIAH, Mott/MANAGING CONSULTANT, ++ dsDNA, low C3) -methotrexate caused oral [...] eye exams with [facility] in [place] -note from Dr. Rodriguez 04/15/24 Discussed the [...] oral ulcers, bilateral elbow arthritis, ++ URIAH, Mott/MANAGING CONSULTANT, ++ dsDNA, low C3) -methotrexate caused oral [...] eye exams with [facility] in [place] -note from Dr. Rodriguez 04/15/24 Discussed the possibility of adding DMARDs such as Benlysta. Patient is not interested. Adjust hydroxychloroquine dose to 400 mg daily x5 days a week and 200 mg daily x2 days a week Labs before next visit in 6 -followed by Yaron and Rosangela Chanel note from 04/20/24 reviewed Assessment & [...] Type Department Care Team Description 02/04/2025 Refill [facility] MEDICINE 230 [place] [address] Marjan Sams MD History of DVT (deep vein thrombosis) 01/28/2025 Results Follow-Up [facility] MEDICINE 230 [place] [address] Lung Screening Low dose 01/23/2025 Orders Only [facility] External Provider, [facility] Abnormal CT scan, lung (Primary Dx); Tobacco dependence syndrome 01/15/2025 Refill [facility] MEDICINE [address] [place] [address] Marjan Sams MD Arthritis of both knees 12/26/2024 Telephone [facility] MEDICINE 230 [place] [address] Marjan Sams MD March Recalls 12/26/2024 Travel 12/19/2024 Refill [facility] MEDICINE 230 [place] [address] Marjan Sams MD History of DVT (deep vein thrombosis) 12/18/2024 Refill [facility] MEDICINE [address] [place] [address] Marjan Sams MD Arthritis of both knees 11/21/2024 Refill [facility] [address] [place] [address] Viridiana Hernández RN Arthritis of both knees 11/21/2024 Telephone [facility] 230 [place] [address] Marjan Sams MD Med Refill 11/14/2024 9:30 AM EDT Clinical Support [facility] 230 [place] [address] Viridiana Hernández RN Chronically on opiate therapy (Primary Dx) [...] 9:30 AM EDT Clinical Support [facility] MEDICINE [address] [place] [address] Viridiana Hernández RN 505 [place] [address] 03/12/2025 9:30 AM EDT Office Visit [facility] MEDICINE [address] [place] [address] Marjan Sams MD 230 [place] [address] Health Maintenance Due Date Last Done Comments [...] Hepatitis A Vaccines Aged Out 06/25/2023, 10/06/19 No longer eligible based on patient's age [...] PM EDT Narrative 01/24/2025 7:43 PM EDT [address] [address] [address] Scan Report Signed with Addenda Patient: Tammy Moeller MR#: [id number] : 1965 Acct:[id number] Age/Sex: 59 / F ADM Date: 01/23/25 Loc: HO.CT Attending Dr: Magdalene Peoples HARDWARE MANAGER Ordering Physician: Awa Heredia PA-C Date of Service: 01/23/25 Procedure(s): CT lung screening Accession Number(s): [id number] cc: Marjan Sams MD; Awa Heredia PA-C Report Number: [id number]: Total DLP = 41.00 mGy-cm ADDENDUM This [...] in OV> 01/24/251942 DD/ 41 TD/TT: 01/24/251941 Speech Pathology Teacher: Procedure Note Donotuseinterpreter, Image - 01/27/[address] [place] [address] [address] Scan Report Signed with Addenda Patient: Tammy Moeller#: [id number] : 1965Acct:[id number] Age/Sex: 59 / FADM Date: 01/23/25 Loc: HO.CT Attending Dr: Magdalene Peoples HARDWARE MANAGER Ordering Physician: Awa Heredia PA-C Date of Service: 01/23/25 Procedure(s): CT lung screening Accession Number(s): [id number] cc: Marjan Sams MD; Awa Heredia PA-C Report Number: [id number]: Total DLP = 41.00 mGy-cm ADDENDUM This [...] in OV> 01/24/251942 DD/ 41 TD/TT: 01/24/251941 Speech Pathology Teacher: [facility] External Provider IMG CT PROCEDURES Edited [...] - 11/14/2024 9:00 AM EDT .UTOX cup Lot#[id number] Exp. 04/03/26 Internal Pass Control Marjan Sams MD POINT OF CARE TEST ENTER/E DIT ORDERABLES Final Result * BI Mammogram Diagnostic Tomosynthesis Bilateral (03/25/2024 2:00 PM EDT) Anatomical Region Laterality Modality Breast Bilateral Mammography 03/25/2024 2:00 PM EDT Narrative 03/25/2024 2:50 PM EDT [facility] [address] [place], [place] [address] Mammography Report Signed Patient: Tammy Moeller MR#: [id number] : 1965 Acct:[id number] Age/Sex: 58 / F ADM Date: 03/25/24 Loc: HO.MAMMO Attending Dr: Marjan Sams MD Ordering Physician: Marjan Sams MD Results: 2B enign Findings Date of Service: 03/25/24 Follow Up: 1 Year From [facility] Mammogram Procedure(s): MM tomosynthesis diagnostic BI Accession Number(s): [id number] cc: Marjan Sams MD EXAMINATION: MM DIAGNOSTIC [...] 03/25/24 1447 DD/ 1400 TD/TT: 03/25/24 1422 Speech Pathology Teacher: Procedure Note Donotuseinterpreter, Image - 03/25/2024 [facility] [address] [place] [address] Mammography Report Signed Patient: Tammy Moeller#: [id number] : 1965Acct:[id number] Age/Sex: 58 / FADM Date: 03/25/24 Loc: HO.MAMMO Attending Dr: Marjan Sams MD Ordering Physician: Marjan Sams MDResults: 2B enign Findings Date of Service: 03/25/24Follow Up: 1 Year From Orig inal Mammogram Procedure(s): MM tomosynthesis diagnostic BI Accession Number(s): [id number] cc: Marjan Sams MD EXAMINATION: MM DIAGNOSTIC [...] 03/25/24 1447 DD/ 1400 TD/TT: 03/25/24 1422 Speech Pathology Teacher: us Marjan Sams MD IMG BI PROCEDURES Final Re sult * HIV-1/2 Antigen and Antibodies, Fourth Generation, with Reflexes (02/13/2024 10:36 AM EDT) HIV AB/AG Nonreactive Nonreactive [facility] Comment:HIV-1 p24 Ag and/or HIV-1/HIV-2 Ab not detected.A test result that is nonreactive does not exclude thepossibility of exposure to or infection with HIV-1 and/orHIV-2. Nonreactive results in this assay for individualswith prior exposure to HIV-1 and/or HIV-2 may be due toantigen and antibody levels that are below the limit ofdetection of this assay.The [employer] Alinity HIV Ag/Ab Combo assay result andsupplemental assay results should be interpreted inconjunction with the patient's clinical presentation,history and other laboratory results. If the results areinconsistent with clinical evidence, additional testing issuggested to confirm the result. Blood Venous blood specimen / Unknown 02/13/2024 10:36 AM EDT 02/13/2024 11:19 AM EDT us Marjan Sams MD LAB BLOOD ORDERABLES Final Result [facility] [address] [place] [phone] * (ABNORMAL) Lipid Panel, Standard (02/13/2024 10:36 AM EDT) Triglycerides 115 <150 mg/dL [facility] Comment:Desirable Triglyceri de: less than 150 mg/dLBorderline High Triglyceride 150-199 mg/dLHigh Triglyceride: 200-499 mg/dLVery High Triglyceride: greater than or equal to 5OO mg/dL Cholesterol 178 <200 mg/dL [facility] Comment:Desirable Cholestero l: less than 200 mg/dLBorderline High Cholesterol: 200-239 mg/dLHigh Cholesterol: greater than 239 mg/dL LDL Cholesterol Calculated 114(H) <100 mg/dL [facility] Comment:Desirable LDL: less than 100 mg/dLNear Optimal/Above Optimal LDL: 110- 129 mg/dLBorderline High LDL: 130-159 mg/dLHigh LDL: 160-189 mg/dLVery High LDL: greater than or equal to 190 mg/dL HDL Cholesterol 41 >40 mg/dL [facility] Comment:Desirable HDL: great er than 40 mg/dL Note: This HDL assay may give artificially low results in patients with liver disease. Blood Venous blood specimen / Unknown 02/13/2024 10:36 AM EDT 02/13/2024 11:19 AM EDT Marjan Sams MD LAB BLOOD ORDERABLES Final Result [facility] [address] [place] [address] [phone] * Thinprep PAP, HPV mRNA E6/E7 RFX HPV 16,18/45, Chlamydia/N. Gonorrhoeae (11/03/2022 12:00 AM EDT) Clinical Information: ROUTINE [facility] LMP: NONE GIVEN [place] Prev. PAP: NONE GIVEN [place]eadst Prev. BX: NO [facility] SOURCE: None given [facility] Statement Of Adequacy: SATISFACTORY FOR EVALUATION [facility] Interpretation/Re sult: [facility] Comment: Negative for intraepithelial lesion or malignancy. Atrophic pattern; predominantly parabasal cells Beater Tender: [employer] Comment: WXW, CT(ASCP) CT Screening Location: [place] [address] (Always Message) [facility] [employer] Comment: EXPLANATORY NOTE: The Pap is a [...] HPV nRNA E6/E7 Not Detected Not Detected [facility] Comment: Methodology: [employer]-Mediated Amplification This assay detects E6/E7 viral messenger RNA (mRNA) from 14 high-risk HPV types (16,18,31,33,35,39,45,51,52,56,58,59,66,68). Cervical sources are required for HPV testing. If a vaginal source from a patient who has had a total hysterectomy with removal of cervix was submitted, please contact the testing laboratory for alternative testing options. For additional information, please refer to http://education.[employer]/faq/YME789x4 (This link if provided for information/ educational purposes only.) Chlamydia trachomatis RNA, TMA, Urogenital NOT DETECTED NOT DETECTED [facility] [place] [employer] Neisseria gonorrhoeae RNA, TMA, Urogenital NOT DETECTED NOT DETECTED [facility] [place] [employer] (Always Message) [facility] [place] [facility] Comment: The analytical performance characteristics of this assay, when used to test SurePath(TM) specimens have been determined by [facility]. The modifications have not been cleared or approved by the FDA. This assay has been validated pursuant to the CLIA regulations and is used for clinical purposes. For additional information, please refer to https://[employer]/faq/BSV331 (This link is being provided for information/ educational purposes only.) 11/03/2022 11/06/2022 9:1 5 PM EDT Narrative [facility] - 11/09/2022 10:33 AM EDT FASTING: UNKNOWN Marjan Sams MD LAB PATHOLOGY ORDERABLES F inal Result [facility] [address], [place] [address] [employer] [place] [employer] [address] [place] [address] * Hepatitis C Antibody with Reflex to HCV, RNA, Quantitative, Real-Time PCR (10/31/2022 8:11 AM EDT) Hepatitis C Antibody NON-REACT CHOCO NON-REACT CHOCO [facility] [place] [employer] Index 0.43 <1.00 [facility] [place] [employer] Comment: HCV antibody was non-reactive. There is no laboratory evidence of HCV infection. In most cases, no further action is required. However, if recent HCV exposure is suspected, a test for HCV RNA (test code 41808) is suggested. For additional information please refer to http://[employer]/faq/YYH96t9 (This link is being provided for informational/ educational purposes only.) Blood Venous blood specimen / Unknown 10/31/2022 8:11 AM EDT 10/31/2022 8:11 AM EDT Narrative [facility] - 10/31/2022 9:53 PM EDT FASTING:YES FASTING: YES us Marjan Sams MD LAB BLOOD ORDERABLES Final Result [facility] [address], [place] [address] [facility] [address] [place] [address] * Hm Colonoscopy (03/30/2017 12:40 PM EDT) Historical Provider HEALTH MAINTENANCE Final Result from Last 3 Months or Most Recently Relevant to Health Maintenance Insurance [employer] MEDICARE REPLACEMENT Advance Directives Documents on File Type Date Recorded Patient Flask Maker Expl anation Advance Directives and Living Will 10/01/2024 12:27 PM HEALTH CARE PROXY Care Teams Successfactors Consultant Relationship Specialty Start Date End Date Marjan Sams MD [address] [place] [address] PCP - General Family Medicine 06/04/18 Esteban Nice MD [address] [place] [address] [address] [place] [address] Rheumatology 05/21/24 Ashley Chanel OD 180 [place] [address] Optometry 05/21/24 Alban Koehler [address] [address] Podiatry 10/08/24 Dea Hewitt MD Rheumatology 10/06/24
--- OUTSIDE RECORDS SUMMARY | 2025-02-05 10:08 | XMS_ITS | Clinical Summary ---
Author Organization 175 [facility] Address 175 [place] [address] Phone Care Team Providers Care Adult Basic Education Instructor Name Role Phone AlexisElizabeth curran Primary Care Provider +1- [phone] Allergies No known active allergies Social History [...] 9:00 AM EDT Consult [facility] [place] [address] [place] [address] Levon Aguirre MD [address] [place] [phone] Health Maintenance Due Date Last Done Comments [...] MEDICARE ADVANTAGE [place]ICA[place] - [place] Care Teams Adult Basic Education Instructor Relationship Specialty Start Date End Date Elizabeth Ly DO [address] [place] [address] PCP - General Family Medicine 10/02/24
--- OUTSIDE RECORDS SUMMARY | 2025-02-05 10:08 | XMS_ITS | Encounter Summary ---
Author Organization [employer] Address [address] [facility] [address] 7t [place] [address] Care Team Providers Care Director Of Security Name Role Phone Marjan Sams MD Primary Care Provider +1- [phone] Esteban Nice MD Unavailable Ashley Chanel OD Unavailable [phone] Alban Koehler Unavailable Reason for Visit * Reason Onset Date Comments Med Refill 10/20/2024 Encounter Details Date Type Department Care Team (Late st Contact Info) Description 10/20/2024 Refill [facility] PEDS [address] [place] [address] Marjan Sams MD [address] [place] [address] Arthritis of both knees Social History Tobacco [...] Description 02/20/2025 9:30 AM EDT Clinical Support [facility] MEDICINE [address] [place] [address] Viridiana Hernández RN 505 [place] [address] 03/12/2025 9:30 AM EDT Office Visit [facility] MEDICINE [address] [place] [address] Marjan Sams MD 230 [place] [address] documented as of this encounter Visit Diagnoses Diagnosis Arthritis of both knees documented in this encounter Additional Health Concerns Assessment Noted Time PHQ-9 Depression Total Score: 4 02/13/20 24 9:45 AM EDT documented as of this encounter Care Teams Director Of Security Relationship Specialty Start Date End Date Marjan Sams MD 230 [place] [address] PCP - General Family Medicine 06/04/18 Esteban Nice MD [address] [place] [address] [address] [place] [address] Rheumatology 05/21/24 Ashley Chanel OD 180 [place] [address] Optometry 05/21/24 Alban Koehler 175 [facility] [address] [place] [address] Podiatry 10/08/24 Dea Hewitt MD Rheumatology 10/06/24 documented as of this encounter
--- OUTSIDE RECORDS SUMMARY | 2025-02-05 10:08 | XMS_ITS | Encounter Summary ---
Author Organization [employer] Address [address] [facility] [address] 7t [place] [address] Care Team Providers Care Evaluator Name Role Phone Marjan Sams MD Primary Care Provider [phone]- [phone] Esteban Nice MD Unavailable Ashley Chanel OD Unavailable [phone] Alban Koehler Unavailable Reason for Visit * Reason Onset Date Comments Call Back Request 10/14/2024 Encounter Details Date Type Department Care Team (Late st Contact Info) Description 10/14/2024 Telephone [facility] MEDICINE [address] [place] [address] [phone] Marjan Sams MD 230 [place], [place] [phone] Call Back Request (/) Social History Tobacco [...] RN - 10/14/2024 12:04 PM EDT Called [facility] [place] Centralized scheduling who said that the pt has a DEXA scan scheduled for 10/29/24 but noultrasounds today or otherwise. Nothing noted in chart. Called pt and informed her of this, pt unaware of US ordered by specialist. Advised her if anything else comes up regarding this will let her know. Pt verbalized understanding. Smooth Stucco Resurfacer found note in chart from xray of the spine ordered by Dr Koehler (podiatry) that recommended follow up Vascular US abdominal aorta aneurysm (AAA) screening. Called pt back to advise of this and gave her phone number to call to clarify with Dr Koehler and to reschedule. [phone] . Pt verbalized understanding, to call that [...] Description 02/20/2025 9:30 AM EDT Clinical Support [address] [address] Viridiana Hernández RN 505 [place] [address] 03/12/2025 9:30 AM EDT Office Visit [facility] MED[facility]INE [address] [place] [address] Marjan Sams MD [address] [place] [address] documented as of this encounter Visit Diagnoses Not on filedocumented in this encounter Additional Health Concerns Assessment Noted Time PHQ-9 Depression Total Score: 4 02/13/20 24 9:45 AM EDT documented as of this encounter Care Teams Evaluator Relationship Specialty Start Date End Date Marjan Sams MD [address] [place] [address] PCP - General Family Medicine 06/04/18 Esteban Nice MD [address] [place] [address] Rheumatology 05/21/24 Ashley Chanel OD 180 [place] [address] Optometry 05/21/24 Alban Koehler [address] [address] Podiatry 10/08/24 Dea Hewitt MD Rheumatology 10/06/24 documented as of this encounter
--- OUTSIDE RECORDS SUMMARY | 2025-02-05 10:08 | XMS_ITS | Encounter Summary ---
Author Organization [employer] Address 75 [facility] 7t [place] [address] Care Team Providers Care Timber Harvester Operator Name Role Phone Marjan Sams MD Primary Care Provider [phone]- [phone] Esteban Nice MD Unavailable Ashley Chanel OD Unavailable [phone] Alban Koehler Unavailable Reason for Visit * Reason Onset Date Comments Med Refill 02/19/2023 Encounter Details Date Type Department Care Team (Late st Contact Info) Description 02/19/[address] [facility] MEDICINE [address] [place] [address] [phone] Marjan Sams MD 230 [place], [place] [phone] Med Refill Social History Tobacco Use Types [...] Description 02/20/2025 9:30 AM EDT Clinical Support [facility] MEDICINE [address] [place] [address] Viridiana Hernández RN 505 [place] [address] 03/12/2025 9:30 AM EDT Office Visit [facility] MEDICINE [address] [place] [address] Marjan Sams MD [address] [place] [address] documented as of this encounter Visit Diagnoses Not on filedocumented in this encounter Additional Health Concerns Assessment Noted Time PHQ-9 Depression Total Score: 0 11/04/19 23 10:28 AM EDT documented as of this encounter Care Teams Timber Harvester Operator Relationship Specialty Start Date End Date Marjan Sams MD [address] [place] [address] PCP - General Family Medicine 06/04/18 Esteban Nice MD [address] [place] [address] Rheumatology 05/21/24 Ashley Chanel OD 180 [place] [address] Optometry 05/21/24 Alban Koehler [address] [address] Podiatry 10/08/24 Dea Hewitt MD Rheumatology 10/06/24 documented as of this encounter
--- OUTSIDE RECORDS SUMMARY | 2025-02-05 10:08 | XMS_ITS | Encounter Summary ---
Author Organization [employer] Address 75 [facility] 7t [place] [address] Care Team Providers Care Casting Coordinator Name Role Phone Marjan Sams MD Primary Care Provider [phone]- [phone] Esteban Nice MD Unavailable Ashley Chanel OD Unavailable [phone] Alban Koehler Unavailable Reason for Visit * Reason Comments Med Refill Encounter Details Date Type Department Care Team (Late st Contact Info) Description 07/25/2023 Refill [facility] MEDICINE 230 [place] [address] Marjan Sams MD 230 [place] [address] Arthritis of both knees Social History Tobacco [...] Description 02/20/2025 9:30 AM EDT Clinical Support [facility] [address] [place] [address] Viridiana Hernández, KIMBERLY 505 [place] [address] 03/12/2025 9:30 AM EDT Office Visit [facility]INE [address] [place] [address] Marjan Sams MD [address] [place] [address] documented as of this encounter Visit Diagnoses Diagnosis Arthritis of both knees documented in this encounter Additional Health Concerns Assessment Noted Time PHQ-9 Depression Total Score: 0 11/04/19 23 10:28 AM EDT documented as of this encounter Care Teams Casting Coordinator Relationship Specialty Start Date End Date Marjan Sams MD [address] [place] [address] PCP - General Family Medicine 06/04/18 Esteban Nice MD [address] [place] [address] Rheumatology 05/21/24 Ashley Chanel OD 180 [place] [address] Optometry 05/21/24 Alban Koehler [address] [address] Podiatry 10/08/24 Dea Hewitt MD Rheumatology 10/06/24 documented as of this encounter
--- OUTSIDE RECORDS SUMMARY | 2025-02-05 10:08 | XMS_ITS | Encounter Summary ---
Author Organization [employer] Address 75 [facility] 7t [place] [address] Care Team Providers Care Steamboat Pilot Name Role Phone Marjan Sams MD Primary Care Provider [phone] Esteban Nice MD Unavailable Ashley Chanel OD Unavailable [phone] Alban Koehler Unavailable Reason for Visit * Reason Onset Date Comments Nurse Triage 09/18/2023 Encounter Details Date Type Department Care Team (Late st Contact Info) Description 09/18/2023 Telephone [facility] MEDICINE [address] [place] [address] [phone] Marjan Sams MD 230 [place], [place] [phone] Nurse Triage Social History Tobacco Use Types [...] Description 02/20/2025 9:30 AM EDT Clinical Support [facility] MEDICINE [address] [place] [address] Viridiana Hernández RN 505 [place] [address] 03/12/2025 9:30 AM EDT Office Visit [facility] MEDICINE [address] [place] [address] Marjan Sams MD [address] [place] [address] documented as of this encounter Visit Diagnoses Not on filedocumented in this encounter Additional Health Concerns Assessment Noted Time PHQ-9 Depression Total Score: 0 11/04/19 10:28 AM EDT documented as of this encounter Care Teams Steamboat Pilot Relationship Specialty Start Date End Date Turner, MD Marjan 230 [place] [address] PCP - General Family Medicine 06/04/18 Esteban Nice MD [address] [place] [address] [address] [place] [address] Rheumatology 05/21/24 Ashley Chanel OD 180 [place] [address] Optometry 05/21/24 Alban Koehler [address] [address] Podiatry 10/08/24 Dea Hewitt MD Rheumatology 10/06/24 documented as of this encounter
--- OUTSIDE RECORDS SUMMARY | 2025-02-05 10:08 | XMS_ITS | Encounter Summary ---
Author Organization [employer] Address 75 [facility] 7t [place] [address] Care Team Providers Care Anatomical Embalmer Name Role Phone Marjan Sams MD Primary Care Provider [phone] Esteban Nice MD Unavailable Ashley Chanel OD Unavailable [phone] Alban Koehler Unavailable Reason for Visit * Reason Onset Date Comments Med Refill 11/21/2024 Encounter Details Date Type Department Care Team (Late st Contact Info) Description 11/21/2024 Telephone [facility] MEDICINE [address] [place] [address] [phone] Marjan Sams MD 230 [place], [place] [phone] Med Refill Social History Tobacco Use Types [...] MG tablet To be sent to: [facility]/pharmacy #[id number] [place] [address] - [address] [place] [address] documented in this encounter Plan of Treatment Upcoming Encounters Date Type Department Care Team ([facility] st Contact Info) Description 02/20/2025 9:30 AM EDT Clinical Support [facility] MEDICINE 230 [place] [address] Viridiana Hernández, RN 505 [place] [address] 03/12/2025 9:30 AM EDT Office Visit [facility] MEDICINE 230 [place] [address] aMrjan Sams MD 230 [place] [address] documented as of this encounter Visit Diagnoses Not on filedocumented in this encounter Additional Health Concerns Assessment Noted Time PHQ-9 Depression Total Score: 4 02/13/20 24 9:45 AM EDT documented as of this encounter Care Teams Anatomical Embalmer Relationship Specialty Start Date End Date Marjan Sams MD 230 [place] [address] PCP - General Family Medicine 06/04/18 Esteban Nice MD [address] [place] [address] Rheumatology 05/21/24 Ashlye Chanel OD 180 [place] [address] Optometry 05/21/24 Alban Koehler [address] [address] Podiatry 10/08/24 Dea Hewitt MD Rheumatology 10/06/24 documented as of this encounter
--- OUTSIDE RECORDS SUMMARY | 2025-02-05 10:08 | XMS_ITS | Encounter Summary ---
Author Organization [employer] Address 75 [facility] 7t [place] [address] Care Team Providers Care Furs Salesperson Name Role Phone Marjan Sams MD Primary Care Provider [phone]- [phone] Esteban Nice MD Unavailable Ashley Chanel OD Unavailable [phone] Alban Koehler Unavailable Reason for Visit * Reason Onset Date Comments Med Refill 08/20/2024 Encounter Details Date Type Department Care Team (Late st Contact Info) Description 08/20/2024 Telephone [facility] MEDICINE [address] [place] [address] [phone] Marjan Sams MD 230 [place], [place] [phone] Med Refill Social History Tobacco Use Types [...] 5-325 MG tablet To be sent to: [facility]/pharmacy #[address] [place] [address] - [address] [place] [address] documented in this encounter Plan of Treatment Upcoming Encounters Date Type Department Care Team (Late st Contact Info) Description 02/20/2025 9:30 AM EDT Clinical Support [facility] MEDICINE [address] [place] [address] Viridiana Hernández RN 505 [place] [address] 03/12/2025 9:30 AM EDT Office Visit [facility] MEDICINE [address] [place] [address] Marjan Sams MD [address] [place] [address] documented as of this encounter Visit Diagnoses Not on filedocumented in this encounter Additional Health Concerns Assessment Noted Time PHQ-9 Depression Total Score: 4 02/13/20 24 9:45 AM EDT documented as of this encounter Care Teams Furs Salesperson Relationship Specialty Start Date End Date Marjan Sams MD 230 [place] [address] PCP - General Family Medicine 06/04/18 Esteban Nice MD [address] [place] [address] 402 [place] [address] Rheumatology 05/21/24 Ashley Chanel OD 180 [place] [address] Optometry 05/21/24 Alban Koehler [address] [address] Podiatry 10/08/24 Dea Hewitt MD Rheumatology 10/06/24 documented as of this encounter
--- OUTSIDE RECORDS SUMMARY | 2025-02-05 10:08 | XMS_ITS | Encounter Summary ---
Author Organization [employer] Address 75 [facility] 7t [place] [address] Care Team Providers Care Technician Telecommunication Systems Name Role Phone Marjan Sams MD Primary Care Provider [phone]- [phone] Esteban Nice MD Unavailable Ashley Chanel OD Unavailable [phone] Alban Koehler Unavailable Reason for Visit * Reason Onset Date Comments Med Refill 10/17/2024 Encounter Details Date Type Department Care Team (Late st Contact Info) Description 10/17/2024 Telephone [facility] MEDICINE [address] [place] [address] [phone] Marjan Sams MD 230 [place] [address] Med Refill Social History Tobacco Use Types [...] 5-325 MG tablet To be sent to: [facility]/pharmacy #[id number] [place] [address] - [address] [place] [address] documented in this encounter Plan of Treatment Upcoming Encounters Date Type Department Care Team ([facility] st Contact Info) Description 02/20/2025 9:30 AM EDT Clinical Support [facility] MEDICINE 230 [place], [place] [phone] Viridiana Hernández, RN 505 [place] [address] 03/12/2025 9:30 AM EDT Office Visit [facility]INE 230 [place] [address] Marjan Sams MD 230 [place] [address] documented as of this encounter Visit Diagnoses Not on filedocumented in this encounter Additional Health Concerns Assessment Noted Time PHQ-9 Depression Total Score: 4 02/13/20 24 9:45 AM EDT documented as of this encounter Care Teams Technician Telecommunication Systems Relationship Specialty Start Date End Date Marjan Sams MD 230 [place] [address] PCP - General Family Medicine 06/04/18 Esteban Nice MD [address] [place] [address] Rheumatology 05/21/24 Ashley Chanel OD 180 [place] [address] Optometry 05/21/24 Alban Koehler [address] [address] Podiatry 10/08/24 Dea Hewitt MD Rheumatology 10/06/24 documented as of this encounter
--- NOTE | 2025-02-12 12:09 | PC.NURSE ---
Gave pt a call to see if MD's office called her regarding holding her ASA x 3days prior to procedure on Feb 17. LD will be taken Sunday02/13/25 ,pt understood. No other concerns/questions.
[2025-02-17] VITALS (13 sets, daily range): BP systolic 69–154; BP diastolic 48–102; PULSE 65–80; RESP 14–22; TEMP 36.4–36.6; O2SAT 96–100; BMI 26.9; BMI 27.1
--- NOTE | ~2025-02-17 | XR_ITS ---
EXAMINATION: XR CHEST CLINICAL INFORMATION: status post lung biopsy COMPARISON: CT from 10:36 AM same day. TECHNIQUE: Frontal view chest x-ray FINDINGS: Opacity in the mid and upper lung opacity with pleural effusion and a small left apical pneumothorax is demonstrated. Left lower lung is aerated. Right lung is clear. Mediastinum is minimally shifted to the left. There is moderate calcification in the aortic knob. Coiled metallic wire projects over the region of the mid left humerus and arm. XR/XR chest 2V IMPRESSION: Small left apical pneumothorax post biopsy. Left upper lobe atelectasis/mass and small effusion. Electronically signed by: Cm Bass MD 02/17/2025 12:42 PM EDT
--- NOTE | ~2025-02-17 | CT_ITS ---
PROCEDURE: CT GUIDED BIOPSY, left LUNG CLINICAL INFORMATION: Left lung mass COMPARISON: CT chest 01/23/2025 TECHNIQUE: Following explaining left upper lobe lung biopsy procedure, benefits and risk, a written consent was obtained. Patient was placed supine on fluoroscopy table and preliminary CT imaging was obtained. An axial slice was selected and markers placed along the left anterolateral chest wall. An optimal marker was selected and marked on the skin. The site was cleaned and draped with 2% chlorhexidine solution. 1% lidocaine was injected puncture site. Through a small skin incision a 20-gauge 10 cm long guiding needle was advanced from the skin incision into the left upper lobe mass . Coaxial needle was advanced and it 3 pass core biopsy of the left upper lobe mass was performed. Complete hemostasis was achieved and sterile dressing applied at puncture site. Postprocedure repeat CT imaging was obtained. DLP: 208. Conscious sedation was administered during exam and patient monitored by IR nurse and IR physician. This CT examination was performed using dose optimization techniques as appropriate, variously including the following: *Automated exposure control *Adjustment of mA and/or kV according to patient size (this includes techniques or standardized protocols for targeted exams where dose is matched to indication/reason for exam; i.e. extremities or head) *Use of iterative reconstruction technique FINDINGS: Since the previous exam there is a complete left upper lobe collapse and a collapsed lung cannot be differentiated with a left upper lobe mass seen on the previous CT imaging. An approximate location of left upper lobe mass was approximated in the present exam along the left upper lobe at the level of shlomo. Through the left anterolateral incision a 4 pass coaxial biopsy was performed and adequate tissue was collected. However uncertain whether this is collapsed lung versus the mass itself. Postprocedure imaging revealed a small left anteroapical trace pneumothorax with no intervention needed at this time. A chest x-ray was to obtained hour later CT/CT biopsy lung LT IMPRESSION: Successful CT fluoroscopy guided left upper lobe mass biopsy performed x3. Trace left apical pneumothorax. No intervention needed. Chest x-ray was to be obtained after one hour. Electronically signed by: Pranay Arndt MD 02/17/2025 02:42 PM EDT
[2025-02-17 09:53] LABS: MANUAL DIFF FLAG NO
[2025-02-17 09:56] LABS: Hematocrit 30.4 % (37.0-47.0); Hemoglobin 10.1 g/dl (12.0-16.0); Imm Gran Abs Auto 0.01 X10*3/uL (0.00-0.03); Imm Gran Pct Auto 0.2 % (0.0-0.4); Lymphocytes Absolute Auto 0.8 X10*3/uL (1.2-4.9); Mean Corpuscular HGB Conc 33.2 g/dl (31.0-35.0); Mean Corpuscular Hemoglobin 29.3 pg (27.0-33.0); Mean Corpuscular Volume 88.1 fL (80.0-98.0); NRBC Abs Auto 0.000 X10*3/uL (0.0-0.012); NRBC Pct Auto 0.0 /100WBC (0.0-0.2); Platelet Count 244 X10*3/uL (160-400); Red Blood Count 3.45 X10*6/uL (4.20-5.50); White Blood Count 4.6 X10*3/uL (4.8-10.8)
[2025-02-17 10:07] LABS: INTERNATIONAL NORM RATIO 1.0 (0.9-1.1); Prothrombin Time 11.5 SEC (10.9-12.4)
[2025-02-17 10:09] LABS: Anion Gap 10 (12-20); Blood Urea Nitrogen 6 mg/dL (9-16); Calcium 8.7 mg/dL (8.4-10.2); Carbon Dioxide 22 mmol/L (22-29); Chloride 114 mmol/L (96-108); Creatinine Clr Calc Pharmacy 77.6; Estimated Glomerular Filt Rate > 60; Potassium 3.8 mmol/L (3.3-5.1); Sodium 142 mmol/L (135-145)
== END 2025-02-17 13:19 | disposition home or self-care (01) ==
PROVIDERS: Radiology Diagnostic Radiology; PCP Family Medicine; Visit Provider Internal Medicine Pulmonary Disease
DX: C34.12 Malignant neoplasm of upper lobe, left bronchus or lung (principal); J93.83 Other pneumothorax; R63.4 Abnormal weight loss; Z68.26 Body mass index [BMI] 26.0-26.9, adult; J44.9 Chronic obstructive pulmonary disease, unspecified; G47.33 Obstructive sleep apnea (adult) (pediatric); Z86.718 Personal history of other venous thrombosis and embolism; M32.9 Systemic lupus erythematosus, unspecified; M85.80 Other specified disorders of bone density and structure, unspecified site; Z79.51 Long term (current) use of inhaled steroids; Z79.899 Other long term (current) drug therapy; F17.210 Nicotine dependence, cigarettes, uncomplicated
CPT/HCPCS: 32408; 36415; 71046; 80048; 85025; 85610; 88305; 88341; 88342; 99152; J2003; J2250; J3010

== ENCOUNTER → 2025-02-17 12:10 | Outpatient (BNV) | payer MEDICARE, SELFPAY | PROVIDERS: PCP Family Medicine; Visit Provider Radiology Diagnostic Radiology | DX: R91.8 Other nonspecific abnormal finding of lung field (principal); J93.9 Pneumothorax, unspecified | CPT/HCPCS: 32408; 71046 ==

== ENCOUNTER 2025-02-23 10:56 | Outpatient (AMB) | payer MEDICARE, SELFPAY ==
--- OUTSIDE RECORDS SUMMARY | 2025-02-20 09:30 | XMS_ITS | Encounter Summary ---
Author Organization [employer] Address [address] [facility] [address] 7t [place] [address] Care Team Providers Care Auto Claim Representative Name Role Phone Marjan Sams MD Primary Care Provider [phone] Esteban Nice MD Unavailable Ashley Chanel OD Unavailable Alban Koehler Unavailable Reason for Visit * Reason Comments MANUFACTURING TEST ENGINEER Encounter Details Date Type Department Care Team (Latest Contact Info) Description 02/20/2025 9:30 AM EDT Clinical Support [facility] MEDICINE [address] [place] [address] Viridiana Hernández RN [address] [place], [place] [phone] Chronically on opiate therapy (Primary Dx) Social History Tobacco Use Types Packs/Day Years [...] as of this encounter Progress Notes * Virdiiana Hernández RN - 02/20/2025 9:30 AM EDT SUBJECTIVE: Tammy Moeller is a 59 y.o. year old female who presents for [facility] Preferred language for medical information: Czech Interpreted needed: No Tammy Moeller does report adherence to Percocet 5-325 mg, take 1 tablet every 12 hours PRN, last refilled 01/16/25. The patient last took Percocet on: 02/20/25 Medication is: 50% % effective at alleviating pain. OBJECTIVE: AUTOMOTIVE DESIGN DRAFTER checked: 02/20/2025 Pill count completed for Percocet , count today is 2 , anticipated count should be 0, this is as expected. Vital Signs Pain Score: 6 Pain Loc: Neck Pain Education: Yes Last PCP visit: 10/01/24 BPI completed on: 11/14/24 , pain severity score: 8, activity interference score: 7 Controlled substance agreement signed: Controlled Substance Agreement 02/20/2025 MANUFACTURING TEST ENGINEER Tier: 3 Current Medications[1] Smoking status: Yes ETOH use: Yes Illicit substances: Denies Marijuana use: No Lab Results Component Value Date POCTHC Negative 02/20/2025 POCCOCAINEUR Negative 02/20/2025 POCOPIATEUR Negative 02/20/2025 DOAUR Negative 02/20/2025 POCAMPHETAMI Negative 02/20/2025 POCBENZODIUR Negative 02/20/2025 POCBARBSCRN Negative 02/20/2025 POCMETHADOUR Negative 02/20/2025 POCBUPSCRN Negative 02/20/2025 POCTCAUR Negative 02/20/2025 POCMDMAUR Negative 02/20/2025 POCOXYCODONE Positive (A) 02/20/2025 POCPHENCYCUR Negative 02/20/2025 PROPOXUR Negative 02/20/2025 FENTANYLURIN Negative 02/20/2025 ASSESSMENT: Encounter Diagnosis Name Primary? Chronically on opiate therapy Yes PLAN: Information on pain group given: Previously discussed Information on acupuncture given: Previously discussed Narcan education provided: Previously discussed Narcan prescription: active Tammy Moeller will continue taking medication as prescribed and follow up at the next MANUFACTURING TEST ENGINEER visitor sooner if needed. Tammy Moeller has verbalized understanding of care plan. Future Appointments Date Time Provider Department Center 03/13/2025 9:45 AM Marjan Sams MD MEDICINE [facility] 06/05/2025 9:30 AM Viridiana Hernández, RN MEDICINE [facility] Viridiana Hernández RN [1] Current Outpatient Medications: albuterol 108 (90 Base) MCG/ACT inhaler, Take 2 puffs po q 4 hours prn, Disp: 18 g, Rfl: 1 Aspirin Low Dose 81 MG EC tablet, TAKE 1 TABLET (81 MG) BY MOUTH ONCE PER DAY., Disp: 90 tablet, Rfl: 3 Blood Pressure [...] reversal., Disp: 2 each, Rfl: 0 nicotine (Nicoderm, Step 1) 21 MG/24HR patch, Place 1 patch on the skin 1 (one) time each day at the same time., Disp: 30 patch, Rfl: 3 nicotine (Nicoderm, Step 2) 14 MG/24HR patch, Place 1 patch on the skin 1 (one) time each day at the same time., Disp: 30 patch, Rfl: 3 nicotine polacrilex (Nicorette) 4 MG gum, Chew 1 each (4 mg) if needed for smoking cessation., Disp: 100 each, Rfl: 0 oxyCODONE-acetaminophen (Percocet) 5-325 MG tablet, Take 1 tablet by mouth every 12 (twelve) hours if needed for severe pain., Disp: 56 tablet, Rfl: 0 documented in this encounter Plan of Treatment Upcoming Encounters Date Type Department Care Team (Late st Contact Info) Description 03/13/2025 9:45 AM EDT Office Visit [facility] MEDICINE [address] [place] [phone] Marjan Sams MD [address] [place] [phone] 06/05/2025 9:30 AM EST Clinical Support [address] [address] Viridiana Hernández RN [address] [place] [address] documented as of this encounter Procedures Procedure Name Priority Date/Time Associated Diagnosis Comments POCT BLADE-14 URINE DRUG SCREEN Routine 02/20/2025 9:51 AM EDT Chronically on opiate therapy documented in this encounter Results * (ABNORMAL) POCT BLADE-14 Urine Drug Screen (02/20/2025 9:51 AM EDT) THC Negative Negative Cocaine Screen, Urine Negative Negative Opiate Screen, Urine Negative Negative Methamphetamine Screen Urine Negative Negative Amphetamine Screen, Urine Negative Negative Benzodiazepines Screen, Urine Negative Negative Barbiturate Screen, Urine Negative Negative Methadone Screen, Urine Negative Negative Buprenophine Screen, Urine Negative Negative TCA, Urine Negative Negative MDMA Urine Negative Negative ng/mL Oxycodone Screen, Urine Positive(A) Negative Phencyclidine (PCP), Urine Negative Negative Propoxyphene, Urine Negative Negative Fentanyl, Urine Negative Negative Urine Urine specimen obtained by clean catch procedure / Unknown 02/20/2025 9:51 AM EDT Narrative Viridiana Hernández RN - 02/20/2025 9:51 AM EDT .UTOX cup Lot#[id number] Exp. 03/10/26 Internal Pass Control Marjan Sams MD POINT OF CARE TEST ENTER/E DIT ORDERABLES Final Result documented in this encounter Visit Diagnoses Diagnosis Chronically on opiate therapy- Primary documented in this encounter Additional Health Concerns Assessment Noted Time PHQ-9 Depression Total Score: 4 02/13/20 24 9:45 AM EDT documented as of this encounter Care Teams Auto Claim Representative Relationship Specialty Start Date End Date Marjan Sams MD [address] [place] [phone] PCP - General Family Medicine 06/04/18 Esteban Nice MD [address] [place] [address] Rheumatology 05/21/24 Ashley Cahnel OD [address] [place] [address] Optometry 05/21/24 Alban Koehler [address] [address] Podiatry 10/08/24 Dea Hewitt MD Rheumatology 10/06/24 documented as of this encounter
--- NOTE | 2025-02-23 10:59 | A.OFFVIS_ITS ---
Vital Signs 02/23/25 11:02 Height 5 ft 2 in Weight 149 lb 14.629 oz BMI 27.4 BP 108/64 Blood Pressure Location Rt brachial Position Sitting Pulse 76 Pulse Source Pulse Oximeter Pulse Oximetry (%) 96 Oxygen Delivery Method Room Air Intake Visit Reasons: abnormal LDCT Allergies No Known Allergies Allergy (Verified 02/23/25 11:05) HPI HPI abnormal LDCT: Details: Tammy Garrett is a pleasant 59-year-old female, active 30+ pack-year smoker, with underlying moderate COPD and SLE on Plaquenil. She was initially referred from lung cancer screening program, first time screener and LDCT demonstrated masslike airspace consolidation in the left upper lobe measuring 4.2 x 5.3 x 4.8 cm with mildly enlarged left axillary and few mediastinal and left hilar lymph nodes. PFT recently performed which revealed moderate COPD with severely decreased DLCO 27%. Ultimately underwent lung biopsy on 02/17 and presents today to review results of pathology. She was also sent for PET which is scheduled tomorrow through [facility]. [facility] Medical History (Updated 02/23/25 @ 12:25 by Magdalene Peoples NP) History of DVT (deep vein thrombosis) (~2014) Systemic lupus erythematosus (~2006) Long-term use of hydroxychloroquine Osteopenia (~2024) COPD (chronic obstructive pulmonary disease) Asthma Obstructive sleep apnea Nicotine dependence, cigarettes, uncomplicated Hyperplastic colon polyp Surgical History (Updated 12/08/24 @ 11:12 by Awa Heredia PA-C) History of colonoscopy Family History Mother Breast cancer Social History Household Members: Significant Other Housing: Apartment Do you presently have visiting nurse or other home services: No Alcohol intake: current Alcohol intake frequency: holidays/special occasions only Alcohol type: hard liquor Patient Tobacco Use Status: Current everyday Tobacco user Tobacco use type: Cigarette Cigarettes Per Day: 7 Years Smoked: (onset 15yo, 1/2ppd x 44yrs, 22pyh) Second Hand Smoke Exposure: No service: No Current occupational status: disabled Review of Systems Const Denies chills, Denies excessive sweating, Denies fever(s), Denies headache(s) and Reports weight loss Eyes Denies dry eyes, Denies irritation and Denies itchy eyes ENT Reports Normal hearing present, Denies headache(s), Denies nasal congestion, Denies nasal discharge, Denies post nasal drip and Denies sore throat Card Denies chest pain, Denies chest pain at rest, Denies chest pain with activity, Denies claudication, Denies leg edema, Denies orthopnea and Denies paroxysmal nocturnal dyspnea Resp Denies chest congestion, Denies excessive phlegm production, Denies pain on inspiration, Denies pain with cough, Denies stridor and Denies wheezing Musc Denies myalgias Neuro Reports Normal hearing present and Denies headache(s) Endo Denies excessive sweating Jeremias/Lymph Denies lymphadenopathy Aller/Immun Denies itchy eyes, Denies seasonal rhinorrhea and Denies wheezing Physical Exam Vital Signs: Last Vital Signs Pulse 76 02/23/25 11:02 BP 108/64 02/23/25 11:02 Pulse Ox 96 02/23/25 11:02 Oxygen Delivery Method Room Air 02/23/25 11:02 BMI result Body Mass Index 27.4 Const General: cooperative, comfortable, no acute distress and alert Nutritional Appearance: thin Orientation/consciousness: patient oriented x3 Limitations: no limitations HEENT Head: Yes normal to inspection, Yes normocephalic and Yes atraumatic Ears: hearing grossly normal bilaterally and external ears normal Eyes General: appearance normal, both eyes and all related structures Eyelids: Yes eyelids normal Sclerae: sclerae normal EOM: EOMs intact bilaterally Neck Neck: Yes normal visual inspection and Yes no lymphadenopathy Lymphatic: no lymphadenopathy noted Chest Chest palpation & inspection: normal inspection of the chest Resp Effort & Inspection: normal respiratory effort, able to speak in complete sentences, no audible wheezes, no cough, no stridor, not tachypneic, no tripod positioning and no use of accessory muscles Auscultation: diminished lung sounds Cardio Jugular venous distension: no JVD Rate: regular rate Rhythm: regular rhythm Skin Other: warm, dry General skin exam: no rashes or lesions noted Neuro General: patient oriented x3 Cranial nerves: Yes Normal hearing present Cognition (Neuro): normal cognition Gait exam (Neuro): Normal gait present Extrem General: Yes normal to inspection, Yes capillary refill normal, Yes no clubbing, cyanosis or edema and Yes no pedal edema Psych Appearance: grossly normal and well kempt Speech and movement: Normal speech and movement present and Clear speech present Affect: normal affect Attitude: cooperative Thought process: Normal thought process present Thought content: Normal thought content present Insight: Good insight present (Psych) Judgement: Good judgement present (Psych) Results Reviewed Results Reviewed: [address] [address] [address] Scan Report Signed with Addenda Patient: Tammy Moeller MR#: [id number] : 1965 Acct:[id number] Age/Sex: 59 / F ADM Date: 01/23/25 Loc: HO.CT Attending Dr: Magdalene Peoples BLOOD BANK CUSTODIAN Ordering Physician: Awa Heredia PA-C Date of Service: 01/23/25 Procedure(s): CT lung screening Accession Number(s): [id number] cc: Marjan Sams MD; Awa Heredia PA-C~ Report Number: [id number]: Total DLP = 41.00 mGy-cm ADDENDUM This document has been electronically signed by: Clinton Wen MD on 01/24/2025 19:42:52 ADDENDUM: Category 4B: Suspicious, Additional diagnostics and/or tissue sampling recommended This document has been electronically signed by: Clinton Wen MD on 01/27/2025 21:03:33 Addendum Dictated By: Clinton Wen MD Addendum Signed By: <Electronically signed by Clinton Wen MD in OV> 01/27/252103 Addendum Cosigned By: DD/ TD/TT: 01/27/25 CLINICAL HISTORY: F17.210 - Nicotine dependence, cigarettes, uncomplicated CT lung cancer screening (LDCT) Comparison: None provided Technique: Axial CT images of the chest using low-dose technique. Referring provider counseled the patient on shared decision-making for LDCT screening. Additional counseling was provided on smoking cessation. Effective radiation dose total: DLP 30.3 mGycm, CTDIvol 1 mGy. Findings: Lung: There is area of masslike airspace consolidation in the left upper lobe measuring 4.2 x 5.3 x 4.8 cm. Lungs are otherwise clear without additional masses or nodules identified. Central airways are patent. No bronchiectasis, bronchial wall thickening or mucous plugging. Normal heart size. No pericardial effusion. Moderate multivessel coronary artery calcifications. Calcified but nonaneurysmal thoracic aorta. Normal caliber central pulmonary arteries. Mildly enlarged left axillary and few mediastinal and left hilar lymph nodes. No acute findings within visualized lower neck. No acute findings within visualized upper abdomen. No lytic or sclerotic osseous lesions. Impression: 1. Spiculated masslike consolidation in the left upper lobe concerning for neoplasm until proven otherwise. Consider further follow-up with PET-CT or tissue sampling. Correlation with patient's symptoms and clinical history for possible infection should also be considered and at minimum, short-term follow-up with CT in 1-2 months should be considered to assess for stability/evolution of these findings. 2. Mild left axillary and mediastinal lymphadenopathy, indeterminate and could be metastatic or reactive to the above. 3. Additional findings as above. Category 1: Normal; continue annual screening Category 2: Benign appearance or behavior, continue annual screening Category 3: Probably benign, [address] recommended Category 4A: Suspicious, [address] recommended; may consider PET/CT Category 4B: Suspicious, Additional diagnostics and/or tissue sampling recommended Category 4X: Suspicious, Additional diagnostics and/or tissue sampling recommended Category 0: Recalls (incomplete screen due to Incomplete coverage, Noise, Respiratory motion, Expiration, Obscured by acute abnormality) This document has been electronically signed by: Clinton Wen MD on 01/24/2025 19:42:52 Dictated By: Clinton Wen MD Signed By: <Electronically signed by Clinton Wen MD in OV> 01/24/251942 DD/ 41 TD/TT: 01/24/251941 Marine Specialist: Assessment & Plan Assessment & Plan (1) Squamous cell carcinoma of left lung: Code(s): C34.92 - Malignant neoplasm of unspecified part of left bronchus or lung Category: Medical (2) Mass of upper lobe of left lung: Code(s): R91.8 - Other nonspecific abnormal finding of lung field Category: Medical (3) COPD (chronic obstructive pulmonary disease): Code(s): J44.9 - Chronic obstructive pulmonary disease, unspecified Category: Medical (4) Nicotine dependence, cigarettes, uncomplicated: Code(s): F17.210 - Nicotine dependence, cigarettes, uncomplicated Category: Medical Plan Reviewed pathology from left lung biopsy performed on 02/17 with patient which revealed invasive squamous cell carcinoma. Discussed referral to oncology now with consideration for thoracic referral in the future. PET scan scheduled tomorrow through [facility]. Reviewed PFT which revealed moderate to severe obstructive ventilatory defect with restrictive ventilatory defect with no bronchodilator response. Increased residual volume suggests air trapping. Decreased diffusion capacity, 27%, suggests emphysema. She reports suboptimal effect with current regimen with ongoing dyspnea and dry cough, will switch Breo to Trelegy. All questions were answered and patient is in agreement of plan. Will follow up with Dr. Fu after oncology evaluation. Orders: Referrals Hematology & Oncology Referral C34.92 - Malignant neoplasm of unspecified part of left bronchus or lung, R91.8 - Other nonspecific abnormal finding of lung field Medications: New piiczadzxph-znazbvcfa-nrxnxhjw 200-62.5-25 mcg (Trelegy Ellipta) 1 inh inhalation DAILY 60 ea 3RF Coding Level of Care Code Est Pt Level 4 (08335) Complex EM visit Add On G2211 Diagnoses Squamous cell carcinoma of left lung C34.92 Mass of upper lobe of left lung R91.8 COPD (chronic obstructive pulmonary disease) J44.9 Nicotine dependence, cigarettes, uncomplicated F17.210
[2025-02-23 11:02] VITALS: BP 108/64; PULSE 76; O2SAT 96; BMI 27.4
--- OUTSIDE RECORDS SUMMARY | 2025-02-23 13:35 | XMS_ITS | Encounter Summary ---
Author Organization [employer] Address [address] [address] [address] 7[address] [place] [address] Care Team Providers Care Wire Brush Maker Name Role Phone Marjan Sams MD Primary Care Provider [phone]- [phone] Esteban Nice MD Unavailable Ashley Chanel OD Unavailable [phone] Alban Koehler Unavailable Reason for Visit * Reason Onset Date Comments Pt1 02/10/2025 Encounter Details Date Type Department Care Team (Late st Contact Info) Description 02/10/2025 Telephone [facility] MEDICINE [address] [place] [address] [phone] Marjan Sams MD [address] [place], [place] [phone] Pt1 Social History Tobacco Use Types Packs/Day Years [...] encounter Miscellaneous Notes * Telephone Encounter - Giovanna Childers - 02/10/2025 2:02 PM EDT Patient calling requesting PT1 Home Address verified: Y/N: Yes Provider name or facility name: [address] [address] [facility] Escort needed: Y/N: No Do you have a wheelchair: Y/N: No If yes- Manual or electric: N/A Visits: 3 x monthly documented in this encounter Plan of Treatment Upcoming Encounters Date Type Department Care Team ([facility] Contact Info) Description 03/13/2025 9:45 AM EDT Office Visit [facility] MEDICINE [address] [place] [address] Marjan Sams MD [address] [place] [address] 06/05/2025 9:30 AM EST Clinical Support [facility] MEDICINE [address] [place] [address] Viridiana Hernández, KIMBERLY [address] [place] [address] documented as of this encounter Visit Diagnoses Not on filedocumented in this encounter Additional Health Concerns Assessment Noted Time PHQ-9 Depression Total Score: 4 02/13/20 24 9:45 AM EDT documented as of this encounter Care Teams Wire Brush Maker Relationship Specialty Start Date End Date Marjan Sams MD [address] [place] [address] PCP - General Family Medicine 06/04/18 Esteban Nice MD [address] [place] [address] Rheumatology 05/21/24 Ashley Chanel OD [address] [place] [address] Optometry 05/21/24 Alban Koehler [address] [place] [address] Podiatry 10/08/24 Dea Hewitt MD Rheumatology 10/06/24 documented as of this encounter
--- OUTSIDE RECORDS SUMMARY | 2025-02-23 13:35 | XMS_ITS | Encounter Summary ---
Author Organization [employer] Address 75 [facility] 7t [place] [address] Care Team Providers Care Director Export Name Role Phone Marjan Sams MD Primary Care Provider [phone] Esteban Nice MD Unavailable Ashley Chanel OD Unavailable [phone] Alban Koehler Unavailable Reason for Visit * Reason Comments Med Refill Encounter Details Date Type Department Care Team (Late st Contact Info) Description 10/19/2023 Refill [facility] MEDICINE [address] [place] [address] Lluvia Mendoza MD [address] [place] [address] History of DVT (deep vein thrombosis) Social [...] Description 03/13/2025 9:45 AM EDT Office Visit [facility] MEDICINE [address] [place] [address] Marjan Sams MD [address] [place] [address] 06/05/2025 9:30 AM EST Clinical Support [address] [address] Viridiana Hernández, KIMBERLY [address] [place] [address] documented as of this encounter Visit Diagnoses Diagnosis History of DVT (deep vein thrombosis) documented in this encounter Additional Health Concerns Assessment Noted Time PHQ-9 Depression Total Score: 0 11/04/19 23 10:28 AM EDT documented as of this encounter Care Teams Director Export Relationship Specialty Start Date End Date Marjan Sams MD [address] [place] [address] PCP - General Family Medicine 06/04/18 Esteban Nice MD [address] [address] Rheumatology 05/21/24 Ashley Chanel OD [address] [place] [address] Optometry 05/21/24 Alban Koehler [address] [address] Podiatry 10/08/24 Dea Hewitt MD Rheumatology 10/06/24 documented as of this encounter
--- OUTSIDE RECORDS SUMMARY | 2025-02-23 13:35 | XMS_ITS | Encounter Summary ---
Author Organization [employer] Address 75 [facility] 7t [place] [address] Care Team Providers Care Credit Risk Specialist Name Role Phone Marjan Sams MD Primary Care Provider [phone] Esteban Nice MD Unavailable Ashley Chanel OD Unavailable [phone] Alban Koehler Unavailable Reason for Visit * Reason Onset Date Comments Med Refill 01/21/2024 Encounter Details Date Type Department Care Team (Late st Contact Info) Description 01/21/2024 Telephone [facility] MEDICINE [address] [place] [address] [phone] Marjan Sams MD [address] [place], [place] [phone] Med Refill Social History Tobacco Use Types [...] 5-325 MG tablet To be sent to: [facility] documented in this encounter Plan of Treatment Upcoming Encounters Date Type Department Care Team (Late st Contact Info) Description 03/13/2025 9:45 AM EDT Office Visit [facility] MEDICINE [address] [place] [address] Marjan Sams MD [address] [place] [address] 06/05/2025 9:30 AM EST Clinical Support [facility] MEDICINE [address] [place] [address] Viridiana Hernández RN [address] [place] [address] documented as of this encounter Visit Diagnoses Not on filedocumented in this encounter Additional Health Concerns Assessment Noted Time PHQ-9 Depression Total Score: 0 11/04/19 23 10:28 AM EDT documented as of this encounter Care Teams Credit Risk Specialist Relationship Specialty Start Date End Date Marjan Sams MD [address] [place] [address] PCP - General Family Medicine 06/04/18 Esteban Nice MD [address] [place] [address] [address] [place] [address] Rheumatology 05/21/24 Ashley Chanel OD [address] [place] [address] Optometry 05/21/24 Alban Koehler [address] [address] Podiatry 10/08/24 Dea Hewitt MD Rheumatology 10/06/24 documented as of this encounter
--- OUTSIDE RECORDS SUMMARY | 2025-02-23 13:35 | XMS_ITS | Encounter Summary ---
Author Organization [employer] Address [address] [facility] [address] 7t [place] [address] Care Team Providers Care Tool Dispatcher Name Role Phone Marjan Sams MD Primary Care Provider +1- [phone] Esteban Nice MD Unavailable Ashley Chanel OD Unavailable [phone] Alban Koehler Unavailable Encounter Details Date Type Department Care Team (Late st Contact Info) Description 02/23/2025 Telephone [facility] MEDICINE 230 [place] [address] Marjan Sams MD 230 [place] [address] Social History Tobacco Use Types Packs/Day Years [...] encounter Miscellaneous Notes * Telephone Encounter - Laure Nam RN - 02/23/2025 11:11 AM EDT Tc to [facility] pulmonology per Pt had lung biopsy for mass on CT. Please ask pulmonary when her follow up is. Thank you. . [facility] Pulmonology reported pt next follow up is today and is currently present for the appointment. Message sent to PCP as an FYI. * Telephone Encounter - Marjan Sams MD - 02/23/2025 11:08 AM EDT Pt had lung biopsy for mass on CT. Please ask pulmonary when her follow up is. Thank you. documented in this encounter Plan of Treatment Upcoming Encounters Date Type Department Care Team (Late st Contact Info) Description 03/13/2025 9:45 AM EDT Office Visit [address] [address] Marjan Sams MD [address] [place] [address] 06/05/2025 9:30 AM EST Clinical Support [address] [address] Viridiana Hernández, RN 505 [place] [address] documented as of this encounter Visit Diagnoses Not on filedocumented in this encounter Additional Health Concerns Assessment Noted Time PHQ-9 Depression Total Score: 4 02/13/20 9:45 AM EDT documented as of this encounter Care Teams Tool Dispatcher Relationship Specialty Start Date End Date Marjan Sams MD [address] [place] [address] PCP - General Family Medicine 06/04/18 Esteban Nice MD [address] [place] [address] Rheumatology 05/21/24 Ashley Chanel OD 180 [place] [address] Optometry 05/21/24 Alban Koehler [address] [address] Podiatry 10/08/24 Dea Hewitt MD Rheumatology 10/06/24 documented as of this encounter
--- OUTSIDE RECORDS SUMMARY | 2025-02-23 13:35 | XMS_ITS | Encounter Summary ---
Author Organization [employer] Address 75 [facility] 7t [place] [address] Care Team Providers Care Bobj Developer Name Role Phone Marjan Sams MD Primary Care Provider +1- [phone] Esteban Nice MD Unavailable Ashley Chanel OD Unavailable [phone] Alban Koehler Unavailable Reason for Visit * Reason Comments Med Refill Encounter Details Date Type Department Care Team (Late st Contact Info) Description 02/10/2025 Refill [facility] MEDICINE 230 [place] [address] Marjan Sams MD 230 [place] [address] Tobacco dependence syndrome Social History Tobacco Use Types Packs/Day Years [...] Description 03/13/2025 9:45 AM EDT Office Visit [facility]INE [address] [place] [address] Marjan Sams MD [address] [place] [address] 06/05/2025 9:30 AM EST Clinical Support [facility] [address] [place] [address] Viridiana Hernández RN 505 [place] [address] documented as of this encounter Visit Diagnoses Diagnosis Tobacco dependence syndrome Tobacco use disorder documented in this encounter Additional Health Concerns Assessment Noted Time PHQ-9 Depression Total Score: 4 02/13/20 9:45 AM EDT documented as of this encounter Care Teams Bobj Developer Relationship Specialty Start Date End Date Albright, MD Marjan 230 [place] [address] PCP - General Family Medicine 06/04/18 Esteban Nice MD [address] [place] [address] [address] [place] [address] Rheumatology 05/21/24 Ashley Chanel OD 180 [place] [address] Optometry 05/21/24 Alban Koehler [address] [address] Podiatry 10/08/24 Dea Hewitt MD Rheumatology 10/06/24 documented as of this encounter
--- OUTSIDE RECORDS SUMMARY | 2025-02-23 13:35 | XMS_ITS | Encounter Summary ---
Author Organization [employer] Address [address] [facility] [address] 7t [place] [address] Care Team Providers Care Arboriculture Teacher Name Role Phone Marjan Sams MD Primary Care Provider +1- [phone] Esteban Nice MD Unavailable Ashley Chanel OD Unavailable [phone] Alban Koehler Unavailable Encounter Details Date Type Department Care Team (Latest Contact Info) Description 02/20/2025 Travel Social History Tobacco Use Types Packs/Day [...] Description 03/13/2025 9:45 AM EDT Office Visit [facility] MEDICINE [address] [place] [address] Marjan Sams MD [address] [place] [address] 06/05/2025 9:30 AM EST Clinical Support [facility] MEDICINE [address] [place] [address] Viridiana Hernández, KIMBERLY 505 [place] [address] documented as of this encounter Visit Diagnoses Not on filedocumented in this encounter Additional Health Concerns Assessment Noted Time PHQ-9 Depression Total Score: 4 02/13/20 24 9:45 AM EDT documented as of this encounter Care Teams Arboriculture Teacher Relationship Specialty Start Date End Date Marjan Sams MD [address] [place] [address] PCP - General Family Medicine 06/04/18 Esteban Nice MD [address] 402 [place] [address] Rheumatology 05/21/24 Ashley Chanel OD 180 [place] [address] Optometry 05/21/24 Alban Koehler [address] [address] Podiatry 10/08/24 Dea Hewitt MD Rheumatology 10/06/24 documented as of this encounter
--- OUTSIDE RECORDS SUMMARY | 2025-02-23 13:35 | XMS_ITS | Encounter Summary ---
Author Organization [employer] Address 75 [facility] [address] 7t [place] [address] Care Team Providers Care Carpenter Mold Name Role Phone Marjan Sams MD Primary Care Provider +1- [phone] Esteban Nice MD Unavailable Ashley Chanel OD Unavailable [phone] Alban Koehler Unavailable Reason for Visit * Reason Onset Date Comments Med Refill 02/20/2025 Encounter Details Date Type Department Care Team (Late st Contact Info) Description 02/20/2025 Refill [facility] 505 [place] [address] Viridiana Hernández, KIMBERLY 505 [place] [address] Arthritis of both knees Social History Tobacco [...] Description 03/13/2025 9:45 AM EDT Office Visit [facility] MEDICINE [address] [place] [address] Marjan Sams MD [address] [place] [address] 06/05/2025 9:30 AM EST Clinical Support [facility] MEDICINE [address] [place] [address] Viridiana Hernández RN 505 [place] [address] documented as of this encounter Visit Diagnoses Diagnosis Arthritis of both knees documented in this encounter Additional Health Concerns Assessment Noted Time PHQ-9 Depression Total Score: 4 02/13/20 24 9:45 AM EDT documented as of this encounter Care Teams Carpenter Mold Relationship Specialty Start Date End Date Latrell, MD Marjan 230 [place] [address] PCP - General Family Medicine 06/04/18 Esteban Nice MD [address] [place] [address] [address] [place] [address] Rheumatology 05/21/24 Ashley Chanel OD 180 [place] [address] Optometry 05/21/24 Alban Koehler [address] [address] Podiatry 10/08/24 Dea Hewitt MD Rheumatology 10/06/24 documented as of this encounter
--- OUTSIDE RECORDS SUMMARY | 2025-02-23 13:36 | XMS_ITS | Encounter Summary ---
Author Organization [employer] Address 75 [facility] 7t [place] [address] Care Team Providers Care Bow Making Machine Operator Name Role Phone Marjan Sams MD Primary Care Provider +1- [phone] Esteban Nice MD Unavailable Ashley Chanel OD Unavailable [phone] Alban Koehler Unavailable Reason for Visit * Reason Onset Date Comments Med Refill 08/20/2024 Encounter Details Date Type Department Care Team (Late st Contact Info) Description 08/20/2024 Telephone [facility] MEDICINE [address] [place] [phone] Marjan Sams MD 230 [place], [place] [phone] Med Refill Social History Tobacco Use Types [...] 5-325 MG tablet To be sent to: [facility]/pharmacy #[id number] [place] [address] documented in this encounter Plan of Treatment Upcoming Encounters Date Type Department Care Team (Late st Contact Info) Description 03/13/2025 9:45 AM EDT Office Visit [facility] MEDICINE [address] [place] [address] Marjan Sams MD [address] [place] [address] 06/05/2025 9:30 AM EST Clinical Support [facility] MEDICINE [address] [place] [address] Viridiana Hernández RN 505 [place] [address] documented as of this encounter Visit Diagnoses Not on filedocumented in this encounter Additional Health Concerns Assessment Noted Time PHQ-9 Depression Total Score: 4 02/13/20 24 9:45 AM EDT documented as of this encounter Care Teams Bow Making Machine Operator Relationship Specialty Start Date End Date Marjan Sams MD 230 [place] [address] PCP - General Family Medicine 06/04/18 Esteban Nice MD [address] [place] [address] [address] [place] [address] Rheumatology 05/21/24 Ashley Chanel OD 180 [place] [address] Optometry 05/21/24 Alban Koehler [address] [address] Podiatry 10/08/24 Dea Hewitt MD Rheumatology 10/06/24 documented as of this encounter
--- OUTSIDE RECORDS SUMMARY | 2025-02-23 13:36 | XMS_ITS | Encounter Summary ---
Author Organization [employer] Address 75 [facility] 7t [place] [address] Care Team Providers Care Advanced Manufacturing Associate Name Role Phone Marjan Sams MD Primary Care Provider +1- [phone] Esteban Nice MD Unavailable Ashley Chanel OD Unavailable [phone] Alban Koehler Unavailable Reason for Visit * Reason Onset Date Comments Med Refill 10/17/2024 Encounter Details Date Type Department Care Team (Late st Contact Info) Description 10/17/2024 Telephone [facility] MEDICINE [address] [place] [address] [phone] Marjan Sams MD 230 [place] [address] Med Refill Social History Tobacco Use Types [...] 5-325 MG tablet To be sent to: [facility]/pharmacy #[id number] [place] [address] - [address] [place] [address] documented in this encounter Plan of Treatment Upcoming Encounters Date Type Department Care Team ([facility] st Contact Info) Description 03/13/2025 9:45 AM EDT Office Visit [facility]INE 230 [place], [place] [phone] Marjan Sams MD 230 [place] [address] 06/05/2025 9:30 AM EST Clinical Support [facility] 230 [place] [address] Viridiana Hernández, RN 505 [place] [address] documented as of this encounter Visit Diagnoses Not on filedocumented in this encounter Additional Health Concerns Assessment Noted Time PHQ-9 Depression Total Score: 4 02/13/20 24 9:45 AM EDT documented as of this encounter Care Teams Advanced Manufacturing Associate Relationship Specialty Start Date End Date Marjan Sams MD 230 [place] [address] PCP - General Family Medicine 06/04/18 Esteban Nice MD [address] [place] [address] Rheumatology 05/21/24 Ashley Chanel OD 180 [place] [address] Optometry 05/21/24 Alban Koehler [address] [address] Podiatry 10/08/24 Dea Hewitt MD Rheumatology 10/06/24 documented as of this encounter
--- OUTSIDE RECORDS SUMMARY | 2025-02-23 13:36 | XMS_ITS | Encounter Summary ---
Author Organization [employer] Address 75 [facility] 7t [place] [address] Care Team Providers Care Residence Director Name Role Phone Marjan Sams MD Primary Care Provider +1- [phone] Esteban Nice MD Unavailable Ashley Chanel OD Unavailable [phone] Alban Koehler Unavailable Reason for Visit * Reason Onset Date Comments Med Refill 01/19/2023 Encounter Details Date Type Department Care Team (Late st Contact Info) Description 01/19/2023 Telephone [facility] MEDICINE [address] [place] [address] [phone] Marjan Sams MD 230 [place], [place] [phone] Med Refill Social History Tobacco Use Types [...] (Percocet) 5-325 MG tablet Please sent to [facility]/pharmacy #[id number] [place], [place] - [address] [facility] documented in this encounter Plan of Treatment Upcoming Encounters Date Type Department Care Team (Late st Contact Info) Description 03/13/2025 9:45 AM EDT Office Visit [address] [address] Marjan Sams MD [address] [place] [address] 06/05/2025 9:30 AM EST Clinical Support [address] [address] Viridiana Hernández RN 505 [place], [place] [phone] documented as of this encounter Visit Diagnoses Not on filedocumented in this encounter Additional Health Concerns Assessment Noted Time PHQ-9 Depression Total Score: 0 11/04/19 23 10:28 AM EDT documented as of this encounter Care Teams Residence Director Relationship Specialty Start Date End Date Marjan Sams MD 230 [place] [address] PCP - General Family Medicine 06/04/18 Esteban Nice MD [address] [place] [address] [place] [address] Rheumatology 05/21/24 Ashley Chanel OD 180 [place] [address] Optometry 05/21/24 Alban Koehler [address] [address] Podiatry 10/08/24 Dea Hewitt MD Rheumatology 10/06/24 documented as of this encounter
--- OUTSIDE RECORDS SUMMARY | 2025-02-23 13:36 | XMS_ITS | Encounter Summary ---
Author Organization [employer] Address [address] [facility] [address] 7t [place] [address] Care Team Providers Care Material Controller Name Role Phone Marjan Sams MD Primary Care Provider +1- [phone] Esteban Nice MD Unavailable Ashley Chanel OD Unavailable Alban Koehler Unavailable Reason for Visit * Reason Onset Date Comments PT1 10/09/2024 Encounter Details Date Type Department Care Team (Late st Contact Info) Description 10/09/2024 Telephone [facility] MEDICINE [address] [place] [phone] Marjan Sams MD 230 [place], [place] [phone] PT1 Social History Tobacco Use Types Packs/Day [...] Y/N: Yes Provider name or facility name: [address] [place] [address] [facility] Escort needed: Y/N: No Do you have a wheelchair: Y/N: No If yes- Manual or electric: N/A Visits: (2x monthly) documented in this encounter Plan of Treatment Upcoming Encounters Date Type Department Care Team (Late st Contact Info) Description 03/13/2025 9:45 AM EDT Office Visit [facility] MEDICINE 230 [place] [address] Marjan Sams MD 230 [place] [address] 06/05/2025 9:30 AM EST Clinical Support [facility] MEDICINE 230 [place] [address] Viridiana Hernández, RN 505 [place] [address] documented as of this encounter Visit Diagnoses Not on filedocumented in this encounter Additional Health Concerns Assessment Noted Time PHQ-9 Depression Total Score: 4 02/13/20 24 9:45 AM EDT documented as of this encounter Care Teams Material Controller Relationship Specialty Start Date End Date Marjan Sams MD 230 [place] [address] PCP - General Family Medicine 06/04/18 Esteban Nice MD [address] [place] [address] Rheumatology 05/21/24 Ashley Chanel OD 180 [place] [address] Optometry 05/21/24 Alban Koehler [address] [address] Podiatry 10/08/24 Dea Hewitt MD Rheumatology 10/06/24 documented as of this encounter
--- OUTSIDE RECORDS SUMMARY | 2025-02-23 13:36 | XMS_ITS | Clinical Summary ---
Author Organization [facility] Address 175 [place] [address] Phone Care Team Providers Care Play Back Operator Name Role Phone MalachiElizabeth Primary Care Provider +1- [phone] Allergies No known active allergies Social History [...] Care Team (Late st Contact Info) Description 02/24/2025 10:[address] [facility] PET Scan [address] [place] [address] Health Maintenance Due Date Last Done Comments [...] or Tdap) 02/12/2034 02/13/2024, 02/12/2014, 12/07/2011 RSV Immunization Adult Patients (1 - 1-dose 75+ series) 2041 Zoster [...] MEDICARE ADVANTAGE MEDICAID - [place] Care Teams Play Back Operator Relationship Specialty Start Date End Date Elizabeth Ly DO [address] [place] [address] PCP - General Family Medicine 10/02/24
--- OUTSIDE RECORDS SUMMARY | 2025-02-23 13:36 | XMS_ITS | Encounter Summary ---
Author Organization [employer] Address 75 [facility] 7t [place] [address] Care Team Providers Care Employee Representative Name Role Phone Marjan Sams MD Primary Care Provider +1- [phone] Esteban Nice MD Unavailable Ashley Chanel OD Unavailable [phone] Alban Koehler Unavailable Reason for Visit * Reason Onset Date Comments Nurse Triage 09/18/2023 Encounter Details Date Type Department Care Team (Late st Contact Info) Description 09/18/2023 Telephone [facility] MEDICINE [address] [place] [address] [phone] Marjan Sams MD 230 [place], [place] [phone] Nurse Triage Social History Tobacco Use Types [...] Upcoming Encounters Date Type Department Care Team ([facility] st Contact Info) Description 03/13/2025 9:45 AM EDT Office Visit [facility] MEDICINE [address] [place] [address] Marjan Sams MD 230 [place] [address] 06/05/2025 9:30 AM EST Clinical Support [facility] MEDICINE [address] [place] [address] Viridiana Hernández RN 505 [place] [address] documented as of this encounter Visit Diagnoses Not on filedocumented in this encounter Additional Health Concerns Assessment Noted Time PHQ-9 Depression Total Score: 0 11/04/19 10:28 AM EDT documented as of this encounter Care Teams Employee Representative Relationship Specialty Start Date End Date Latrell, MD Marjan 230 [place] [address] PCP - General Family Medicine 06/04/18 Esteban Nice MD [address] [place] [address] [address] [place] [address] Rheumatology 05/21/24 Ashley Chanel OD 180 [place] [address] Optometry 05/21/24 Alban Koehler [address] [address] Podiatry 10/08/24 Dea Hewitt MD Rheumatology 10/06/24 documented as of this encounter
--- OUTSIDE RECORDS SUMMARY | 2025-02-23 13:36 | XMS_ITS | Encounter Summary ---
Author Organization [employer] Address 75 [facility] 7t [place] [address] Care Team Providers Care Painting Department Supervisor Name Role Phone Marjan Sams MD Primary Care Provider +1- [phone] Esteban Nice MD Unavailable Ashley Chanel OD Unavailable [phone] Alban Koehler Unavailable Reason for Visit * Reason Comments Med Refill Encounter Details Date Type Department Care Team (Late st Contact Info) Description 07/25/[address] [facility] MEDICINE 230 [place] [address] Marjan Sams MD 230 [place] [address] Arthritis of both knees Social History Tobacco [...] Description 03/13/2025 9:45 AM EDT Office Visit [facility] MEDICINE [address] [place] [address] Marjan Sams MD [address] [place] [address] 06/05/2025 9:30 AM EST Clinical Support [address] [address] Viridiana Hernández, KIMBERLY 505 [place] [address] documented as of this encounter Visit Diagnoses Diagnosis Arthritis of both knees documented in this encounter Additional Health Concerns Assessment Noted Time PHQ-9 Depression Total Score: 0 11/04/19 23 10:28 AM EDT documented as of this encounter Care Teams Painting Department Supervisor Relationship Specialty Start Date End Date Marjan Sams MD [address] [place] [address] PCP - General Family Medicine 06/04/18 Esteban Nice MD [address] [place] [address] Rheumatology 05/21/24 Ashley Chanel OD 180 [place] [address] Optometry 05/21/24 Alban Koehler [address] [address] Podiatry 10/08/24 Dea Hewitt MD Rheumatology 10/06/24 documented as of this encounter
--- OUTSIDE RECORDS SUMMARY | 2025-02-23 13:36 | XMS_ITS | Encounter Summary ---
Author Organization [employer] Address [address] [facility] [address] 7t [place] [address] Care Team Providers Care Plunger Shovel Operator Name Role Phone Marjan Sams MD Primary Care Provider +1- [phone] Esteban Nice MD Unavailable Ashley Chanel OD Unavailable [phone] Alban Koehler Unavailable Encounter Details Date Type Department Care Team (Late st Contact Info) Description 03/22/2023 Abstract [facility] MEDICINE 230 [place] [address] Marjan Sams MD 230 [place] [address] Preventative health care; Osteoarthritis of knee, unspecified [...] Description 03/13/2025 9:45 AM EDT Office Visit [facility] MEDICINE [address] [place] [address] Marjan Sams MD [address] [place] [address] 06/05/2025 9:30 AM EST Clinical Support [facility] MEDICINE [address] [place] [address] Viridiana Hernández, RN 505 [place] [address] documented as of this encounter Visit Diagnoses Diagnosis Preventative health care Routine general medical examination at a health care facility Osteoarthritis of knee, unspecified laterality, unspecified osteoarthritis type documented in this encounter Additional Health Concerns Assessment Noted Time PHQ-9 Depression Total Score: 0 11/04/19 23 10:28 AM EDT documented as of this encounter Care Teams Plunger Shovel Operator Relationship Specialty Start Date End Date Marjan Sams MD [address] [place] [address] PCP - General Family Medicine 06/04/18 Esteban Nice MD [address] [place] [address] [place] [address] Rheumatology 05/21/24 Ashley Chanel OD 180 [place] [address] Optometry 05/21/24 Alban Koehler [address] [address] Podiatry 10/08/24 Dea Hewitt MD Rheumatology 10/06/24 documented as of this encounter
--- OUTSIDE RECORDS SUMMARY | 2025-02-23 13:36 | XMS_ITS | Encounter Summary ---
Author Organization [employer] Address 75 [facility] 7t [place] [address] Care Team Providers Care Air Drier Machine Operator Name Role Phone Marjan Sams MD Primary Care Provider + [phone] Esteban Nice MD Unavailable Ashley Chanel OD Unavailable [phone] Alban Koehler Unavailable Encounter Details Date Type Department Care Team (Late st Contact Info) Description 06/29/2022 Abstract [facility] MEDICINE [address] [place] [address] Marjan Sams MD [address] [place] [address] [phone] Social History Tobacco Use Types Packs/Day Years [...] Description 03/13/2025 9:45 AM EDT Office Visit [facility] MEDICINE [address] [place] [address] Marjan Sams MD [address] [place] [address] 06/05/2025 9:30 AM EST Clinical Support [facility] MEDICINE 230 [place] [address] Viridiana Hernández RN 505 [place] [address] documented as of this encounter Procedures Procedure [...] on filedocumented in this encounter Care Teams Air Drier Machine Operator Relationship Specialty Start Date End Date Marjan Sams MD 230 [place] [address] PCP - General Family Medicine 06/04/18 Esteban Nice MD [address] [place] [address] Rheumatology 05/21/24 Ashley Chanel OD 180 [place] [address] Optometry 05/21/24 Alban Koehler [address] [address] Podiatry 10/08/24 Dea Hewitt MD Rheumatology 10/06/24 documented as of this encounter
--- OUTSIDE RECORDS SUMMARY | 2025-02-23 13:36 | XMS_ITS | Encounter Summary ---
Author Organization [facility] Address [address] [facility] [facility] [address] [place] [address] Care Team Providers Care Heavy Repairer Name Role Phone Marjan Sams MD Primary Care Provider [phone] Esteban Nice MD Unavailable Ashley Chanel OD Unavailable [phone] Alban Koehler Unavailable Reason for Visit * Reason Onset Date Comments [employer] Set-up 01/23/2024 Encounter Details Date Type Department Care Team (Late st Contact Info) Description 01/23/2024 Telephone [facility] [address] [place], [place] [phone] Marjan Sams MD [address] [place] [address] [employer] Set-up Social History Tobacco Use Types [...] request a uber set-up for 01/29 appt contract technical writer did confirm address and call back number documented in this encounter Plan of Treatment Upcoming Encounters Date Type Department Care Team ([facility] st Contact Info) Description 03/13/2025 9:45 AM EDT Office Visit [facility] [address] [place] [phone] Marjan Sams MD [address] [place] [address] 06/05/2025 9:30 AM EST Clinical Support [facility] [address] [place] [phone] Viridiana Hernández RN [address] [place] [address] documented as of this encounter Visit Diagnoses Not on filedocumented in this encounter Additional Health Concerns Assessment Noted Time PHQ-9 Depression Total Score: 0 11/04/19 10:28 AM EDT documented as of this encounter Care Teams Heavy Repairer Relationship Specialty Start Date End Date Latrell, MD Marjan [address] [place] [address] PCP - General Family Medicine 06/04/18 Esteban Nice MD [address] [place] [address] [address] [place] [address] Rheumatology 05/21/24 Ashley Chanel OD [address] [place] [address] Optometry 05/21/24 Alban Koehler [address] [address] Podiatry 10/08/24 Dea Hewitt MD Rheumatology 10/06/24 documented as of this encounter
--- OUTSIDE RECORDS SUMMARY | 2025-02-23 13:36 | XMS_ITS | Clinical Summary ---
Author Organization [employer] Address [address] [facility] [address] [place] [address] Care Team Providers Care Infectious Disease Physician Name Role Phone Marjan Sams MD Primary Care Provider [phone] Esteban Nice MD Unavailable Ashley Chanel OD Unavailable [phone] Alban Koehler Unavailable Allergies No known active [...] smoking cessation. 100 each 10/08/19 25 Active Aspirin Low Dose 81 MG EC tabletIndicati ons:History of DVT (deep vein thrombosis) TAKE 1 TABLET (81 MG) BY MOUTH ONCE PER DAY. 90 tablet 3 02/05/20 25 Active oxyCODONE-acet aminophen (Percocet) 5-325 MG tabletIndicati ons:Arthritis of both knees Take 1 tablet by mouth every 12 (twelve) hours if needed for severe pain. 56 tablet 02/21/20 25 Active aspirin (Aspirin Low Dose) 81 MG EC tabletIndicati ons:History of DVT (deep vein thrombosis) Take 1 tablet (81 mg) by mouth Once per day. 90 tablet 3 02/13/20 24 2024 Discontinued oxyCODONE-acet aminophen (Percocet) 5-325 MG tabletIndicati ons:Arthritis of both knees Take 1 tablet by mouth every 12 (twelve) hours if needed for severe pain. 56 tablet 01/16/20 25 2024 Discontinued(R eorder (will not trigger [...] ortho placed 09/03/24 -Seen by Dr. Koehler chief hospital administrator at [facility] , no changes Assessment & Plan (10/01/2024 [...] care facilitated by [facility] in [facility] -health care proxy: pt reports has at home 06/25/23 Assessment & Plan (10/01/2024 2:58 PM EDT): -next comprehensive annual evaluation due after 10/01/25 -eye care facilitated by [facility] in [facility] is [facility] -health care proxy: pt reports has at home 06/25/23 Assessment & Plan (06/25/2023 11:24 AM EST): -next physical exam due after 06/25/24 -eye care facilitated by [facility] in [facility] is [facility] -health care proxy: pt reports has [...] as pharmacomtherapy, [facility] smoking cessation group, and [facility] pharmacy smoking cessation clinic Discussed USPSTF recommends [...] as pharmacomtherapy, [facility] smoking cessation group, and [facility] pharmacy smoking cessation clinic Discussed USPSTF recommends [...] as pharmacomtherapy, [facility] smoking cessation group, and [facility] pharmacy smoking cessation clinic Discussed USPSTF recommends [...] oral ulcers, bilateral elbow arthritis, ++ URIAH, Mott/DAIRY TESTER, ++ dsDNA, low C3) -methotrexate caused oral [...] eye exams with [facility] in [place] -note from Dr. Rodriguez 04/15/24 Discussed the [...] oral ulcers, bilateral elbow arthritis, ++ URIAH, Mott/DAIRY TESTER, ++ dsDNA, low C3) -methotrexate caused oral [...] eye exams with [facility] in [place] -note from Dr. Rodriguez 04/15/24 Discussed the [...] Encounters Date Type Department Care Team Description 02/23/[address] [address] Marjan Sams MD 02/20/2025 9:30 AM EDT Clinical Support [address] [address] Viridiana Hernández, KIMBERLY Chronically on opiate therapy (Primary Dx) 02/20/2025 Refill [facility] [address] [place], [place] [phone] Viridiana Hernández, RN Arthritis of both knees 02/20/2025 Travel 02/17/2025 Orders Only GENERIC EXTERNAL DATA DEPARTMENT Provider, Generic External Data 02/10/2025 Patient Outreach [address] [address] Marjan Sams MD Care Coordination ([facility] outreach for SDOH PT-1 and food needs-referral completed /) 02/10/[address] [address] Marjan Sams MD Pt1 02/10/[address] [place] [address] Marjan Sams MD Tobacco dependence syndrome 02/05/2025 Telephone [facility] [place] [address] Marjan Sams MD cancel appt 03/12/25 02/05/2025 Travel 02/04/2025 Refill [facility] [place] [address] Marjan Sams MD History of DVT (deep vein thrombosis) 01/28/2025 Results Follow-Up [facility] [address] [place] [address] [place] [address] Lung Screening Low dose 01/23/2025 Orders Only [facility] External Provider, [facility] Abnormal CT scan, lung (Primary Dx); Tobacco dependence syndrome 01/15/2025 Refill [facility] [place] [address] Marjan Sams MD Arthritis of both knees 12/26/2024 Telephone [facility] [address] [place] [address] Marjan Sams MD March Recalls 12/26/2024 Travel 12/19/2024 Refill [facility] [place] [address] Marjan Sams MD History of DVT (deep vein thrombosis) 12/18/[address] [address] Marjan Sams MD Arthritis of both knees from Last 3 Months Immunizations Immunization Administration [...] Description 03/13/2025 9:45 AM EDT Office Visit [facility] [address] [place] [address] Marjan Sams MD [address] [place] [phone] 06/05/2025 9:30 AM EST Clinical Support [facility] [address] [place] [address] Viridiana Hernández, RN [address] [place] [address] Health Maintenance Due Date Last Done Comments [...] Cervical Cancer Screening 11/04/2027 HPV/Cotest 11/04/2027 11/03/2022, 0302/2018, 08/04/2016 Pap Smear 11/04/2027 11/03/2022, 08/10/2017 Lipid [...] 9:51 AM EDT Chronically on opiate therapy XR CHEST 2 VIEWS Routine 02/17/2025 12:1 7 PM EDT GROSS AND MICROSCOPIC LEVEL 4 Routine 02/17/2025 11:[address] BIOPSY LUNG LEFT Routine 02/17/2025 1 0:35 AM EDT BASIC METABOLIC PANEL Routine 02/17/2025 9:50 AM EDT PROTHROMBIN TIME-INR Routine 02/17/2025 9:50 AM EDT CBC WITH AUTO DIFFERENTIAL Routine 02/17/2025 9:50 AM EDT LDCT LUNG SCREENING Routine 01/24/2025 7 :42 PM EDT BI MAMMOGRAM DIAGNOSTIC TOMOSYNTHESIS BILATERAL Routine 03/25/2024 [...] Recently Relevant to Health Maintenance Results * (ABNORMAL) POCT BLADE-14 Urine Drug [...] - 02/20/2025 9:51 AM EDT .UTOX cup Lot#[id number] Exp. 03/10/26 Internal Pass Control Marjan Sams MD POINT OF CARE TEST ENTER/E DIT ORDERABLES Final Result * XR Chest 2 Views (02/17/2025 12:17 PM EDT) Anatomical Region Laterality Modality Chest Radiographic Erendira ging 02/17/2025 12:1 7 PM EDT Narrative 02/17/2025 12:47 PM EDT [address] [address] XRay Report Signed Patient: Tammy Moeller MR#: [id number] : 1965 Acct:[id number] Age/Sex: 59 / F ADM Date: 02/17/25 Loc: HO.SSS Attending Dr: Yann Fu MD Ordering Physician: Pranay Arndt MD Date of Service: 02/17/25 Procedure(s): XR chest 2V Accession Number(s): [id number] cc: Marjan Sams MD; Pranay Arndt MD Reason for Exam: status post lung biopsy EXAMINATION: XR CHEST CLINICAL INFORMATION: status post lung biopsy COMPARISON: CT from 10:36 AM same day. TECHNIQUE: Frontal view chest x-ray FINDINGS: Opacity in the mid and upper lung opacity with pleural effusion and a small left apical pneumothorax is demonstrated. Left lower lung is aerated. Right lung is clear. Mediastinum is minimally shifted to the left. There is moderate calcification in the aortic knob. Coiled metallic wire projects over the region of the mid left humerus and arm. XR/XR chest 2V IMPRESSION: Small left apical pneumothorax post biopsy. Left upper lobe atelectasis/mass and small effusion. Electronically signed by: Cm Bass MD 02/17/2025 12:42 PM EDT Dictated By: Cm Bass MD Signed By: <Electronically signed by Cm Bass MD in OV> 02/17/25 1242 DD/ 1217 TD/TT: 02/17/25 1219 Fluorescent Lamp Replacer: Procedure Note Donotuseinterpreter, Image - 02/17/2025 [facility] [address] [place] [address] XRay Report Signed Patient: Tammy MoellerR#: [id number] : 1965Acct:[id number] Age/Sex: 59 / FADM Date: 02/17/25 Loc: HO.SSS Attending Dr: Yann Fu MD Ordering Physician: Pranay Arndt MD Date of Service: 02/17/25 Procedure(s): XR chest 2V Accession Number(s): [id number] cc: Marjan Sams MD; Pranay Arndt MD Reason for Exam: status post lung biopsy EXAMINATION: XR CHEST CLINICAL INFORMATION: status post lung biopsy COMPARISON: CT from 10:36 AM same day. TECHNIQUE: Frontal view chest x-ray FINDINGS: Opacity in the mid and upper lung opacity with pleural effusion and a small left apical pneumothorax is demonstrated. Left lower lung is aerated. Right lung is clear. Mediastinum is minimally shifted to the left. There is moderate calcification in the aortic knob. Coiled metallic wire projects over the region of the mid left humerus and arm. XR/XR chest 2V IMPRESSION: Small left apical pneumothorax post biopsy. Left upper lobe atelectasis/mass and small effusion. Electronically signed by: Cm Bass MD 02/17/2025 12:42 PM EDT Dictated By: Cm Bass MD Signed By: <Electronically signed by Cm Bass MD in OV> 02/17/25 1242 DD/ 1217 TD/TT: 02/17/25 1219 Fluorescent Lamp Replacer: [facility] External Provider IMG XR PROCEDURES Edited Result - Final * Gross and Microscopic Level 4 (02/17/2025 11:02 AM EDT) 02/17/2025 11:0 2 AM EDT 02/17/2025 2:34 PM EDT [facility]S - 02/19/2025 9:15 AM EDT ----- ------- Name: Tammy Moeller Age/Sex: 59/F : 1965 Unit#: [id number] Attend Dr: Yann Fu MD Re02/17/25 Status: [facility] Location: [facility] Disch: ----- ------- SPEC : [id number] RECD: 02/17/25-1433 STATUS: [facility] [place] NUM: [id number] NICOLETTE: 02/17/25-[address] [facility] [address]: Pranay Arndt MD ENTERED: 02/17/25 SP TYPE: Surgical OTHR DR: Marjan Sams MD, Andrey MD ORDERED: Gross Micro L4, IHC, Add. immunos, p40, p63 Addendum Addendum 1 Entered: 02/19/25 Immunostains show the tumor is positive for p40 and p63, confirming squamous differentiation. Controls stain appropriately. Additional studies pending; report to follow. Addendum Signed (signature on file) Marychuy Moreau 02/19/25 0915 ----- ------- Diagnosis Lung, left upper lobe mass, core biopsy: -Invasive squamous cell carcinoma. Comment: Immunostains and molecular studies pending; addenda to follow. Clinical History Pre-Op Dx: Mass Post-Op Dx: Primary lung Microscopic Description Microscopic sections irregular sheets of tumor cells within fibrous tissue. The irregular tumor cells have moderate to abundant pink cytoplasm with intercellular bridges, and irregularly enlarged nuclei with focal prominent red nucleoli and focal apoptosis. Material Received SIDDHARTHA mass Gross Description Received in formalin labeled left lung bx are several minute to 0.6 cm in greatest dimension irregular shards and thin and delicate cylindrical threads of herrera-duval tissue with scant red-maroon blood, submitted in toto in a cassette labeled Julia KELLY CONTINUED ON NEXT PAGE ----- ------- Name: Tammy Moeller Age/Sex: 59/F : 1965 Unit#: [id number] Attend Dr: Yann Fu MD Re02/17/25 Status: [facility] Location: [facility] Disch: ----- ------- SPEC : [id number] RECD: 02/17/25 STATUS: [facility] NUM: [id number] NICOLETTE: 02/17/[address] [facility] [address]: Pranay Arndt MD ENTERED: 02/17/25 SP TYPE: Surgical OTHR DR: Majran Sams MD, Andrey MD ORDERED: Gross Micro L4, IHC, Add. immunos, p40, p63 Gross Description (Continued) This case was reviewed intradepartmentally. Results given to Raad Olivarez by secure text by Dr. Moreau on 02/18/2025 at 4:13 pm. Special studies ordered and performed: Immunostains for p40 and p63 on A1. IHC S/NG Disclaimer NOTE: Unless otherwise stated, all tissue is formalin-fixed and paraffin-embedded. Some or all of the immunohistochemical tests reported herein may have been developed and their performance characteristics determined by [facility]. They have not been cleared or approved by the U.S. Food and Drug Administration (FDA). However, the FDA has determined that such clearance or approval is not necessary. This laboratory is certified under the Clinical Laboratory Improvement Amendments of 1988 (CLIA) as qualified to perform high complexity clinical laboratory testing. Copies To: Marjan Sams MD [facility] [address] [phone] Pranay Arndt MD [address] [place] [address] Yann Fu MD [facility] [address] [phone] ----- ------- Signed (signature on file) Marychuy Moreau 02/18/25 1615 ----- ------- END OF REPORT us Generic External Data Provider LAB CYTOLOGY RAMBO GOYAL Final Result [facility] [address] [place], [place] [phone] * CT Biopsy Lung Left (02/17/2025 10:35 AM EDT) Anatomical Region Laterality Modality Computed Tomogra phy 02/17/2025 10:3 5 AM EDT Narrative 02/17/2025 2:46 PM EDT [address] [address] [address] Scan Report Signed Patient: Tammy Moeller MR#: [id number] : 1965 Acct:[id number] Age/Sex: 59 / F ADM Date: 02/17/25 Loc: HO.[facility] Attending Dr: Yann Fu MD Ordering Physician: Yann Fu MD Date of Service: 02/17/25 Procedure(s): CT biopsy lung LT Accession Number(s): [id number] cc: Marjan Sams MD; Yann Fu MD Report Number: [id number]: Total DLP = 208.00 mGy-cm Reason for Exam: R91.8 - Other nonspecific abnormal finding of lung field PROCEDURE: CT GUIDED BIOPSY, left LUNG CLINICAL INFORMATION: Left lung mass COMPARISON: CT chest 01/23/2025 TECHNIQUE: Following explaining left upper lobe lung biopsy procedure, benefits and risk, a written consent was obtained. Patient was placed supine on fluoroscopy table and preliminary CT imaging was obtained. An axial slice was selected and markers placed along the left anterolateral chest wall. An optimal marker was selected and marked on the skin. The site was cleaned and draped with 2% chlorhexidine solution. 1% lidocaine was injected puncture site. Through a small skin incision a 20-gauge 10 cm long guiding needle was advanced from the skin incision into the left upper lobe mass . Coaxial needle was advanced and it 3 pass core biopsy of the left upper lobe mass was performed. Complete hemostasis was achieved and sterile dressing applied at puncture site. Postprocedure repeat CT imaging was obtained. DLP: 208. Conscious sedation was administered during exam and patient monitored by IR nurse and IR physician. This CT examination was performed using dose optimization techniques as appropriate, variously including the following: *Automated exposure control *Adjustment of mA and/or kV according to patient size (this includes techniques or standardized protocols for targeted exams where dose is matched to indication/reason for exam; i.e. extremities or head) *Use of iterative reconstruction technique FINDINGS: Since the previous exam there is a complete left upper lobe collapse and a collapsed lung cannot be differentiated with a left upper lobe mass seen on the previous CT imaging. An approximate location of left upper lobe mass was approximated in the present exam along the left upper lobe at the level of shlomo. Through the left anterolateral incision a 4 pass coaxial biopsy was performed and adequate tissue was collected. However uncertain whether this is collapsed lung versus the mass itself. Postprocedure imaging revealed a small left anteroapical trace pneumothorax with no intervention needed at this time. A chest x-ray was to obtained hour later CT/CT biopsy lung LT IMPRESSION: Successful CT fluoroscopy guided left upper lobe mass biopsy performed x3. Trace left apical pneumothorax. No intervention needed. Chest x-ray was to be obtained after one hour. Electronically signed by: Pranay Arndt MD 02/17/2025 02:42 PM EDT Dictated By: Pranay Arndt MD Signed By: <Electronically signed by Pranay Arndt MD in OV> 02/17/25 1442 DD/ 1035 TD/TT: 02/17/25 1119 Fluorescent Lamp Replacer: [facility] [place] Procedure Note Donotuseinterpreter, Image - 02/17/[address] [address] [address] Scan Report Signed Patient: Tammy Moeller#: [id number] : 1965Acct:[id number] Age/Sex: 59 / FADM Date: 02/17/25 Loc: .[facility] Attending Dr: Yann Fu MD Ordering Physician: Yann Fu MD Date of Service: 02/17/25 Procedure(s): CT biopsy lung LT Accession Number(s): [id number] cc: Marjan Sams MD; Yann Fu MD Report Number: [id number]: Total DLP = 208.00 mGy-cm Reason for Exam: R91.8 - Other nonspecific abnormal finding of lung field PROCEDURE: CT GUIDED BIOPSY, left LUNG CLINICAL INFORMATION: Left lung mass COMPARISON: CT chest 01/23/2025 TECHNIQUE: Following explaining left upper lobe lung biopsy procedure, benefits and risk, a written consent was obtained. Patient was placed supine on fluoroscopy table and preliminary CT imaging was obtained. An axial slice was selected and markers placed along the left anterolateral chest wall. An optimal marker was selected and marked on the skin. The site was cleaned and draped with 2% chlorhexidine solution. 1% lidocaine was injected puncture site. Through a small skin incision a 20-gauge 10 cm long guiding needle was advanced from the skin incision into the left upper lobe mass . Coaxial needle was advanced and it 3 pass core biopsy of the left upper lobe mass was performed. Complete hemostasis was achieved and sterile dressing applied at puncture site. Postprocedure repeat CT imaging was obtained. DLP: 208. Conscious sedation was administered during exam and patient monitored by IR nurse and IR physician. This CT examination was performed using dose optimization techniques as appropriate, variously including the following: *Automated exposure control *Adjustment of mA and/or kV according to patient size (this includes techniques or standardized protocols for targeted exams where dose is matched to indication/reason for exam; i.e. extremities or head) *Use of iterative reconstruction technique FINDINGS: Since the previous exam there is a complete left upper lobe collapse and a collapsed lung cannot be differentiated with a left upper lobe mass seen on the previous CT imaging. An approximate location of left upper lobe mass was approximated in the present exam along the left upper lobe at the level of shlomo. Through the left anterolateral incision a 4 pass coaxial biopsy was performed and adequate tissue was collected. However uncertain whether this is collapsed lung versus the mass itself. Postprocedure imaging revealed a small left anteroapical trace pneumothorax with no intervention needed at this time. A chest x-ray was to obtained hour later CT/CT biopsy lung LT IMPRESSION: Successful CT fluoroscopy guided left upper lobe mass biopsy performed x3. Trace left apical pneumothorax. No intervention needed. Chest x-ray was to be obtained after one hour. Electronically signed by: Pranay Arndt MD 02/17/2025 02:42 PM EDT Dictated By: Pranay Arndt MD Signed By: <Electronically signed by Pranay Arndt MD in OV> 02/17/25 1442 DD/ 1035 TD/TT: 02/17/25 1119 Fluorescent Lamp Replacer: JASON us [facility] External Provider IMG CT PROCEDURES Edited Result - Final * (ABNORMAL) CBC auto differential (02/17/2025 9:50 AM EDT) White Blood Count 4.6(L) 4.8 - 10.8 X10*3/uL [facility] Red Blood Count 3.45(L) 4.20 - 5.50 X10*6/uL [facility] Hemoglobin 10.1(L) 12.0 - 16.0 g/dl [facility] Hematocrit 30.4(L) 37.0 - 47.0 % [facility] Mean Corpuscular Volume 88.1 80.0 - 98.0 fL [facility] Mean Corpuscular Hemoglobin 29.3 27.0 - 33.0 pg [facility] Mean Corpuscular HGB Conc 33.2 31.0 - 35.0 g/dl [facility] Red Cell Distribution Width 18.6(H) 11.0 - 16.0 % [facility] Platelet Count 244 160 - 400 X10*3/uL [facility] Mean Platelet Volume 8.9(L) 9.4 - 12.3 fL [facility] Neutrophils Percent Auto 77.9(H) 45 - 73 % [facility] Imm Gran Pct Auto 0.2 0.0 - 0.4 % [facility] Lymphocytes Percent Auto 16.8(L) 20 - 40 % [facility] Monocytes Percent Auto 4.7 2 - 11 % [facility] Eosinophils Percent Auto 0.4 0 - 4 % [facility] Basophils Percent Auto 0.0 0 - 2 % [facility] NRBC Pct Auto 0.0 0.0 - 0.2 /100WBC [facility] Neutrophils Absolute Auto 3.6 2.0 - 8.3 x10*3/uL [facility] Imm Gran Abs Auto 0.01 0.00 - 0.03 X10*3/uL [facility] Lymphocytes Absolute Auto 0.8(L) 1.2 - 4.9 X10*3/uL [facility] Monocytes Absolute Auto 0.2 0.1 - 1.2 X10*3/uL [facility] Eosinophils Absolute Auto 0.0 0.0 - 0.4 X10*3/uL [facility] Basophils Absolute Auto 0.0 0.0 - 0.2 X10*3/uL [facility] NRBC Abs Auto 0.000 0.0 - 0.012 X10*3/uL [facility] 02/17/2025 9:50 AM EDT 02/17/2025 9:52 AM EDT Generic External Data Provider LAB BLOOD ORDERAB LES Final Result Performing Organization Address [facility] de Phone Number [facility] [address] [place] [phone] * Prothrombin Time-INR (02/17/2025 9:50 AM EDT) Prothrombin Time 11.5 10.9 - 12.4 SEC [facility] INTERNATIONAL NORM RATIO 1.0 0.9 - 1.1 [facility] Comment:INTERNATIONAL NORMAL IZED RATIO (INR) REFERENCE RANGES Reference RangeFor patients not on anticoagulant therapy: 0.9 - 1.1INR ranges for oral anticoagulanttherapy:For prevention and treatment of venous thrombosis and pulmonary embolism: 2.0 - 3.0For acute myocardial infarction with aspirin therapy: 2.0 - 3.0For acute myocardial infarction without aspirin therapy: 3.0 - 4.0For patients with mechanical prosthetic heart valves: 2.5 - 3.5 02/17/2025 9:50 AM EDT 02/17/2025 9:52 AM EDT [facility] External Data Provider LAB BLOOD ORDERAB LES Final Result Performing Organization Address [facility] de Phone Number [facility] [address] [place] [phone] * (ABNORMAL) Basic Metabolic Panel (02/17/2025 9:50 AM EDT) Sodium 142 135 - 145 mmol/L [facility] Potassium 3.8 3.3 - 5.1 mmol/L [facility] Chloride 114(H) 96 - 108 mmol/L [facility] Carbon Dioxide 22 22 - 29 mmol/L [facility] Anion Gap 10(L) 12 - 20 [facility] Urea Nitrogen (BUN) 6(L) 9 - 16 mg/dL [facility] Creatinine, Serum 0.71 0.5 - 1.4 mg/dL [facility] Creatinine Clr Calc Pharmacy 77.6 [facility] Comment:Provided height and weight: 157.48 cm,67.2 kg.eGFR (calculated from the MDRD study equation) and eCrCl(calculated from the Cockcroft-Gault equation) are based ondifferent parameters and may not yield comparable results.If eCrCl result is absurd, please check patient'sheight/weight. Estimated Glomerular Filt Rate >60 [facility] Comment:Chronic Kidney Disea se: Estimated GFR < 60 mL/min/1.19x3[place] Kidney Disease: Estimated GFR < 15 mL/min/1.73m2 Glucose 73 60 - 115 mg/dL [facility] Calcium 8.7 8.4 - 10.2 mg/dL [facility] 02/17/2025 9:50 AM EDT 02/17/2025 9:52 AM EDT us Generic External Data Provider LAB BLOOD ORDERAB LES Final Result [facility] [address] [place] [phone] * CT Lung Screening Low dose (01/24/2025 7:42 PM EDT) Anatomical Region Laterality Modality Lung Computed Tomogra phy 01/24/2025 7:42 PM EDT Narrative 01/24/2025 7:43 PM EDT [address] [address] [address] Scan Report Signed with Diana Patient: Tammy Moeller MR#: [id number] : 1965 Acct:[id number] Age/Sex: 59 / F ADM Date: 01/23/25 Loc: HO.CT Attending Dr: Magdalene Peoples FURNACE LINER Ordering Physician: Awa Heredia PA-C Date of Service: 01/23/25 Procedure(s): CT lung screening Accession Number(s): [id number] cc: Marjan Sams MD; Awa Heredia PA-C Report Number: [id number]: Total DLP = 41.00 mGy-cm ADDENDUM This [...] in OV> 01/24/251942 DD/ 41 TD/TT: 01/24/251941 Fluorescent Lamp Replacer: Procedure Note Donotuseinterpreter, Image - 01/27/[address] [address] [address] Scan Report Signed with Addenda Patient: Tammy Moeller#: [id number] : 1965Acct:[id number] Age/Sex: 59 / FADM Date: 01/23/25 Loc: HO.CT Attending Dr: Magdalene Peoples FURNACE LINER Ordering Physician: Awa Heredia PA-C Date of Service: 01/23/25 Procedure(s): CT lung screening Accession Number(s): [id number] cc: Marjan Sams MD; Awa Heredia PA-C Report Number: [id number]: Total DLP = 41.00 mGy-cm ADDENDUM This [...] in OV> 01/24/251942 DD/ 41 TD/TT: 01/24/251941 Fluorescent Lamp Replacer: [facility] External Provider IMG CT PROCEDURES Edited Result - Final * BI Mammogram Diagnostic Tomosynthesis Bilateral (03/25/2024 2:00 PM EDT) Anatomical Region Laterality Modality Breast Bilateral Mammography 03/25/2024 2:00 PM EDT Narrative 03/25/2024 2:50 PM EDT [facility] [address] [place] [address] Mammography Report Signed Patient: Tammy Moeller MR#: [id number] : 1965 Acct:[id number] Age/Sex: 58 / F ADM Date: 03/25/24 Loc: TETOO Attending Dr: Marjan Sams MD Ordering Physician: Marjan Sams MD Results: 2B enign Findings Date of Service: 03/25/24 Follow Up: 1 Year From Orig inal Mammogram Procedure(s): MM tomosynthesis diagnostic BI Accession Number(s): [id number] cc: Marjan Sams MD EXAMINATION: MM DIAGNOSTIC [...] 03/25/24 1447 DD/ 1400 TD/TT: 03/25/24 1422 Fluorescent Lamp Replacer: Procedure Note Donotuseinterpreter, Image - 03/25/2024 [facility] [address] [place], [place] [address] Mammography Report Signed Patient: Tammy Moeller#: [id number] : 1965Acct:[id number] Age/Sex: 58 / FADM Date: 03/25/24 Loc: HO.MAMMO Attending Dr: Marjan Sams MD Ordering Physician: Marjan Sams MDResults: 2B enign Findings Date of Service: 03/25/24Follow Up: 1 Year From Orig inal Mammogram Procedure(s): MM tomosynthesis diagnostic BI Accession Number(s): [id number] cc: Marjan Sams MD EXAMINATION: MM DIAGNOSTIC [...] Amor Jimenez MD 03/25/2024 02:47 PM EDT RP Dictated By: Amor Jimenez MD Signed By: <Electronically signed by Amor Jimenez MD in OV> 03/25/24 1447 DD/ 1400 TD/TT: 03/25/24 1422 Fluorescent Lamp Replacer: us Marjan Sams MD IM BI PROCEDURES Final Re sult * HIV-1/2 Antigen and Antibodies, Fourth Generation, with Reflexes (02/13/2024 10:36 AM EDT) HIV AB/AG Nonreactive Nonreactive [facility] Comment:HIV-1 p24 Ag and/or HIV-1/HIV-2 Ab not detected.A test result that is nonreactive does not exclude thepossibility of exposure to or infection with HIV-1 and/orHIV-2. Nonreactive results in this assay for individualswith prior exposure to HIV-1 and/or HIV-2 may be due toantigen and antibody levels that are below the limit ofdetection of this assay.The Chewse HIV Ag/Ab Combo assay result andsupplemental assay results should be interpreted inconjunction with the patient's clinical presentation,history and other laboratory results. If the results areinconsistent with clinical evidence, additional testing issuggested to confirm the result. Blood Venous blood specimen / Unknown 02/13/2024 10:36 AM EDT 02/13/2024 11:19 AM EDT Marjan Sams MD LAB BLOOD ORDERABLES Final Result Performing Organization Address [facility] Co de Phone Number [facility] [address] [place] [phone] [phone] * (ABNORMAL) Lipid Panel, Standard (02/13/2024 10:36 AM EDT) Triglycerides 115 <150 mg/dL [facility] Comment:Desirable Triglyceri de: less than 150 mg/dLBorderline High Triglyceride 150-199 mg/dLHigh Triglyceride: 200-499 mg/dLVery High Triglyceride: greater than or equal to 5OO mg/dL Cholesterol 178 <200 mg/dL [facility] Comment:Desirable Cholestero l: less than 200 mg/dLBorderline High Cholesterol: 200-239 mg/dLHigh Cholesterol: greater than 239 mg/dL LDL Cholesterol Calculated 114(H) <100 mg/dL [facility] Comment:Desirable LDL: less than 100 mg/dLNear Optimal/Above Optimal LDL: 110- 129 mg/dLBorderline High LDL: 130-159 mg/dLHigh LDL: 160-189 mg/dLVery High LDL: greater than or equal to 190 mg/dL HDL Cholesterol 41 >40 mg/dL [facility] Comment:Desirable HDL: great er than 40 mg/dL Note: This HDL assay may give artificially low results in patients with liver disease. Blood Venous blood specimen / Unknown 02/13/2024 10:36 AM EDT 02/13/2024 11:19 AM EDT Marjan Sams MD LAB BLOOD ORDERABLES Final Result Performing Organization Address [facility]/ZIP Co de Phone Number [facility] [address] [place] [phone] * Thinprep PAP, HPV mRNA E6/E7 RFX HPV 16,18/45, Chlamydia/N. Gonorrhoeae (11/03/2022 12:00 AM EDT) Clinical Information: ROUTINE [employer] [place] [facility] LMP: NONE GIVEN [employer] [place] [facility] Prev. PAP: NONE GIVEN [employer] [place] [facility] Prev. BX: NO [employer] [place] [facility] SOURCE: None given [employer] [place] [facility] Statement Of Adequacy: SATISFACTORY FOR EVALUATION [employer] [place] [facility] Interpretation/Re sult: [employer] [place] [facility] Comment: Negative for intraepithelial lesion or malignancy. Atrophic pattern; predominantly parabasal cells Creative Technologist: Farheen [employer] [place] [facility] Comment: WXW, CT(ASCP) CT Screening Location: [place] [address] (Always Message) [facility] [employer] [place] [facility] Comment: EXPLANATORY NOTE: The Pap is a [...] HPV nRNA E6/E7 Not Detected Not Detected [facility] Comment: Methodology: Satellite Installer-Mediated Amplification This assay detects E6/E7 viral messenger RNA (mRNA) from 14 high-risk HPV types (16,18,31,33,35,39,45,51,52,56,58,59,66,68). Cervical sources are required for HPV testing. If a vaginal source from a patient who has had a total hysterectomy with removal of cervix was submitted, please contact the testing laboratory for alternative testing options. For additional information, please refer to http://education.Captora/faq/OHO607g0 (This link if provided for information/ educational purposes only.) Chlamydia trachomatis RNA, TMA, Urogenital NOT DETECTED NOT DETECTED [facility] Neisseria gonorrhoeae RNA, TMA, Urogenital NOT DETECTED NOT DETECTED [facility] (Always Message) Que [facility]OT[facility] Comment: The analytical performance characteristics of this assay, when used to test SurePath(TM) specimens have been determined by [employer]. The modifications have not been cleared or approved by the FDA. This assay has been validated pursuant to the CLIA regulations and is used for clinical purposes. For additional information, please refer to https://[employer].Captora/faq/XAC306 (This link is being provided for information/ educational purposes only.) 11/03/2022 11/06/2022 9:1 5 PM EDT Narrative [facility] - 11/09/2022 10:33 AM EDT FASTING: UNKNOWN Marjan Sams MD LAB PATHOLOGY ORDERABLES F inal Result Performing Organization Address [facility] de Phone Number [employer] [address] [place] [address], [place] [address] [employer] [place] [facility] [address] [place] [phone] * Hepatitis C Antibody with Reflex to HCV, RNA, Quantitative, Real-Time PCR (10/31/2022 8:11 AM EDT) Hepatitis C Antibody NON-REACT CHOCO NON-REACT CHOCO [facility] Index 0.43 <1.00 [facility] Comment: HCV antibody was non-reactive. There is no laboratory evidence of HCV infection. In most cases, no further action is required. However, if recent HCV exposure is suspected, a test for HCV RNA (test code 86922) is suggested. For additional information please refer to http://[employer].Widdle/faq/LEY30i0 (This link is being provided for informational/ educational purposes only.) Blood Venous blood specimen / Unknown 10/31/2022 8:11 AM EDT 10/31/2022 8:11 AM EDT Narrative [facility] - 10/31/2022 9:53 PM EDT FASTING:YES FASTING: YES Marjan Sams MD LAB BLOOD ORDERABLES Final Result Performing Organization Address [facility] Co de Phone Number [address], [facility] [place] [phone] [employer] [place] [facility] [address] [place] [phone] * Hm Colonoscopy (03/30/2017 12:40 PM EDT) us Historical Provider HEALTH MAINTENANCE Final Result from Last 3 Months or Most Recently Relevant to Health Maintenance Insurance AET[employer] MEDICARE REPLACEMENT Advance Directives Documents on File Type Date Recorded 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
--- OUTSIDE RECORDS SUMMARY | 2025-02-23 13:36 | XMS_ITS | Encounter Summary ---
Author Organization [employer] Address [address] [facility] 7t [place] [address] Care Team Providers Care Literacy Teacher Name Role Phone Marjan Sams MD Primary Care Provider [phone]- [phone] Esteban Nice MD Unavailable Ashley Chanel OD Unavailable [phone] Alban Koehler Unavailable Reason for Visit * Reason Comments Med Refill Encounter Details Date Type Department Care Team (Late st Contact Info) Description 12/19/2024 Refill [facility] [address] [place] [address] Marjan Sams MD [address] [place] [address] History of DVT (deep vein thrombosis) Social [...] Description 03/13/2025 9:45 AM EDT Office Visit [facility] [address] [place] [address] Marjan Sams MD [address] [place] [address] 06/05/2025 9:30 AM EST Clinical Support [facility] [address] [place] [address] Viridiana Hernández RN [address] [place] [address] documented as of this encounter Visit Diagnoses Diagnosis History of DVT (deep vein thrombosis) documented in this encounter Additional Health Concerns Assessment Noted Time PHQ-9 Depression Total Score: 4 09/11/20 24 9:45 AM EDT documented as of this encounter Care Teams Literacy Teacher Relationship Specialty Start Date End Date Marjan Sams MD [address] [place] [address] PCP - General Family Medicine 06/04/18 Esteban Nice MD [address] [place] [address] [address] [place] [address] Rheumatology 05/21/24 Ashley Chanel OD 180 [place] [address] Optometry 05/21/24 Alban Koehler [address] [address] Podiatry 10/08/24 Dea Hewitt MD Rheumatology 10/06/24 documented as of this encounter
--- OUTSIDE RECORDS SUMMARY | 2025-02-23 13:36 | XMS_ITS | Encounter Summary ---
Author Organization [employer] Address [address] [facility] [address] 7[address] [place] [address] Care Team Providers Care Software Sales Name Role Phone Marjan Sams MD Primary Care Provider [phone]- [phone] Esteban Nice MD Unavailable Ashley Chanel OD Unavailable [phone] Alban Koehler Unavailable Reason for Visit * Reason Onset Date Comments Call Back Request 10/14/2024 Encounter Details Date Type Department Care Team (Late st Contact Info) Description 10/14/2024 Telephone [facility] [address] [place] [address] [phone] Marjan Sams MD 230 [place], [place] [phone] Call Back Request (/) Social History Tobacco [...] RN - 10/14/2024 12:[address] [facility] who said that the pt has a DEXA scan scheduled for 10/29/24 but noultrasounds today or otherwise. Nothing noted in chart. Called pt and informed her of this, pt unaware of US ordered by specialist. Advised her if anything else comes up regarding this will let her know. Pt verbalized understanding. Urologist Md found note in chart from xray of the spine ordered by Dr Koehler (podiatry) that recommended follow up Vascular US abdominal aorta aneurysm (AAA) screening. Called pt back to advise of this and gave her phone number to call to clarify with Dr Koehler and to reschedule. [phone] . Pt verbalized understanding, to call that office now. * Telephone Encounter - Cee Belkis Gama - 10/14/2024 8:10 AM EDT Tc from [...] Description 03/13/2025 9:45 AM EDT Office Visit [address] [address] Marjan Sams MD [address] [place] [address] 06/05/2025 9:30 AM EST Clinical Support [address] [address] Viridiana Hernández, KIMBERLY [address] [place] [address] documented as of this encounter Visit Diagnoses Not on filedocumented in this encounter Additional Health Concerns Assessment Noted Time PHQ-9 Depression Total Score: 4 02/13/20 24 9:45 AM EDT documented as of this encounter Care Teams Software Sales Relationship Specialty Start Date End Date Marjan Sams MD [address] [place] [address] PCP - General Family Medicine 06/04/18 Esteban Nice MD [address] [place] [address] [place] [address] Rheumatology 05/21/24 Ashley Chanel OD 180 [place] [address] Optometry 05/21/24 Alban Koehler [address] [address] Podiatry 10/08/24 Dea Hewitt MD Rheumatology 10/06/24 documented as of this encounter
--- OUTSIDE RECORDS SUMMARY | 2025-02-23 13:36 | XMS_ITS | Encounter Summary ---
Author Organization [employer] Address [address] [facility] [address] 7t [place] [address] Care Team Providers Care Marketing Professional Name Role Phone Marjan Sams MD Primary Care Provider [phone] Esteban Nice MD Unavailable Ashley Chanel OD Unavailable [phone] Alban Koehler Unavailable Reason for Visit * Reason Onset Date Comments Med Refill 10/20/2024 Encounter Details Date Type Department Care Team (Late st Contact Info) Description 10/20/2024 Refill [facility]S [address] [place] [address] Marjan Sams MD [address] [place] [address] Arthritis of both knees Social History Tobacco [...] Description 03/13/2025 9:45 AM EDT Office Visit [facility] [address] [place] [address] Marjan Sams MD [address] [place] [address] 06/05/2025 9:30 AM EST Clinical Support [address] [address] Viridiana Hernández RN 505 [place] [address] documented as of this encounter Visit Diagnoses Diagnosis Arthritis of both knees documented in this encounter Additional Health Concerns Assessment Noted Time PHQ-9 Depression Total Score: 4 02/13/20 24 9:45 AM EDT documented as of this encounter Care Teams Marketing Professional Relationship Specialty Start Date End Date Marjan Sams MD 230 [place] [address] PCP - General Family Medicine 06/04/18 Esteban Nice MD [address] [place] [address] 402 [place] [address] Rheumatology 05/21/24 Ashley Chanel OD 180 [place] [address] Optometry 05/21/24 Alban Koehler [address] [address] Podiatry 10/08/24 Dea Hewitt MD Rheumatology 10/06/24 documented as of this encounter
--- OUTSIDE RECORDS SUMMARY | 2025-02-23 13:36 | XMS_ITS | Encounter Summary ---
Author Organization [employer] Address 75 [facility] 7t [place] [address] Care Team Providers Care Vp Sales Name Role Phone Marjan Sams MD Primary Care Provider [phone]- [phone] Esteban Nice MD Unavailable Ashley Chanel OD Unavailable [phone] Alban Koehler Unavailable Reason for Visit * Reason Onset Date Comments Med Refill 02/19/2023 Encounter Details Date Type Department Care Team (Late st Contact Info) Description 02/19/2023 Telephone [facility] [address] [place] [address] [phone] Marjan Sams MD 230 [place], [place] [phone] Med Refill Social History Tobacco Use Types [...] Description 03/13/2025 9:45 AM EDT Office Visit [address] [address] Marjan Sams MD 230 [place] [address] 06/05/2025 9:30 AM EST Clinical Support [address] [address] Viridiana Hernández RN 505 [place] [address] documented as of this encounter Visit Diagnoses Not on filedocumented in this encounter Additional Health Concerns Assessment Noted Time PHQ-9 Depression Total Score: 0 11/04/19 23 10:28 AM EDT documented as of this encounter Care Teams Vp Sales Relationship Specialty Start Date End Date Marjan Sams MD 230 [place] [address] PCP - General Family Medicine 06/04/18 Esteban Nice MD [address] [place] [address] Rheumatology 05/21/24 Ashley Chanel OD 180 [place] [address] Optometry 05/21/24 Alban Koehler [address] [address] Podiatry 10/08/24 Dea Hewitt MD Rheumatology 10/06/24 documented as of this encounter
--- OUTSIDE RECORDS SUMMARY | 2025-02-23 13:36 | XMS_ITS | Encounter Summary ---
Author Organization [employer] Address 75 [facility] 7t [place] [address] Care Team Providers Care Wood Tank Erector Name Role Phone Marjan Sams MD Primary Care Provider [phone] Esteban Nice MD Unavailable Ashley Chanel OD Unavailable [phone] Alban Koehler Unavailable Reason for Visit * Reason Onset Date Comments Med Refill 02/21/2024 Encounter Details Date Type Department Care Team (Late st Contact Info) Description 02/21/2024 Telephone [facility] [address] [place] [phone] Marjan Sams MD 230 [place], [place] [phone] Med Refill Social History Tobacco Use Types [...] 5-325 MG tablet To be sent to: [facility]/pharmacy #[id number] [place] [address] - [address] [place] [address] documented in this encounter Plan of Treatment Upcoming Encounters Date Type Department Care Team (Late st Contact Info) Description 03/13/2025 9:45 AM EDT Office Visit [facility] [address] [place] [address] Marjan Sams MD [address] [place] [address] 06/05/2025 9:30 AM EST Clinical Support [facility] [address] [place] [address] Viridiana Hernández RN 505 [place] [address] documented as of this encounter Visit Diagnoses Not on filedocumented in this encounter Additional Health Concerns Assessment Noted Time PHQ-9 Depression Total Score: 4 02/13/20 24 9:45 AM EDT documented as of this encounter Care Teams Wood Tank Erector Relationship Specialty Start Date End Date Marjan Sams MD 230 [place] [address] PCP - General Family Medicine 06/04/18 Esteban Nice MD [address] [place] [address] [address] [place] [address] Rheumatology 05/21/24 Ashley Chanel OD 180 [place] [address] Optometry 05/21/24 Alban Koehler [address] [address] Podiatry 10/08/24 Dea Hewitt MD Rheumatology 10/06/24 documented as of this encounter
== END 2025-02-23 14:15 | disposition home or self-care (01) ==
LOC: HO.HPS 10:57
PROVIDERS: PCP Family Medicine; Visit Provider Nurse Practitioner Family
DX: C34.92 Malignant neoplasm of unspecified part of left bronchus or lung (principal); R91.8 Other nonspecific abnormal finding of lung field; J44.9 Chronic obstructive pulmonary disease, unspecified; F17.210 Nicotine dependence, cigarettes, uncomplicated
CPT/HCPCS: 99214; G2211

== ENCOUNTER → 2025-02-23 10:56 | Outpatient (BNVA) | payer MEDICARE, SELFPAY | PROVIDERS: PCP Family Medicine; Visit Provider Nurse Practitioner Family | DX: Z71.2 Person consulting for explanation of examination or test findings (principal); C34.92 Malignant neoplasm of unspecified part of left bronchus or lung; R91.8 Other nonspecific abnormal finding of lung field; J44.9 Chronic obstructive pulmonary disease, unspecified; F17.210 Nicotine dependence, cigarettes, uncomplicated | CPT/HCPCS: 99212 ==

== ENCOUNTER → 2025-02-25 13:47 | Outpatient (BNV) | payer MEDICARE, MEDICAID, SELFPAY | PROVIDERS: PCP Family Medicine; Visit Provider Internal Medicine | DX: C34.12 Malignant neoplasm of upper lobe, left bronchus or lung (principal) | CPT/HCPCS: 99205; G2211 ==

== ENCOUNTER 2025-03-05 15:02 | Emergency (ER) | payer MEDICARE, SELFPAY ==
--- NOTE | ~2025-03-05 | CT_ITS ---
CLINICAL HISTORY: pleuritic pain concern for PE CT angiography chest with contrast. 3D Postprocessing. Comparison: CT/SR - CT LUNG SCREENING - 01/23/25 11:13 EDT Findings: Cardiomegaly without significant pericardial effusion. Coronary artery calcifications. 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 Diffuse atheromatous plaque disease throughout the aorta and branch vessels, without aneurysmal dilatation. No acute pulmonary embolus. Enlarging lobulated presumed adenopathy/nona mass in the AP window, difficult to measure given morphology however best seen on coronal series 7, image 31 measuring 3.6 x 6.3 cm. Mildly prominent axillary nodes may be reactive. Masslike consolidation with complete collapse of the left upper lobe, concerning for an endobronchial mass lesion and/or disease progression from the known spiculated mass in the left upper lobe from prior. Small lobulated left pleural effusion. Atelectasis Tiny bilateral pulmonary nodules measuring no more than 3 mm. Per Fleischner criteria: Low-risk patients: No routine follow-up required. High-risk patients: Optional CT at 12 months. Nonspecific bilateral adrenal gland thickening. Splenule. Splenic capsular calcifications, nonspecific. The bones are intact. IMPRESSION: 1. No evidence of PE. 2. 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 3. Disease progression with complete collapse of the left upper lobe likely secondary to an endobronchial obstructive mass or expansion of the known left upper lobe mass. 4. Small lobulated left pleural effusion. 5. Enlarging ill-defined nona mass/adenopathy in the AP window. This document has been electronically signed by: Peter Messina MD on 03/05/2025 19:58:34
--- NOTE | ~2025-03-05 | XR_ITS ---
EXAMINATION: XR CHEST CLINICAL INFORMATION: cough, SOB COMPARISON: 02/17/2025 TECHNIQUE: 2 views of the chest were obtained. FINDINGS: There is persistent opacity in the upper left the lung. There is groundglass density over the lower half of the left lung. Pulmonary vessels are mildly prominent. There is tenting of the left hemidiaphragm. The right lung is clear. XR/XR chest 2V IMPRESSION: Stable mass/atelectasis and left pleural effusion resulting in opacity in the upper half of the left lung. Increasing density in the aerated left lower lung could represent developing pneumonia and/or atelectasis. Electronically signed by: Cm Bass MD 03/05/2025 05:04 PM EDT RP
[2025-03-05 15:40] VITALS: BP 120/70; BP 127/66; PULSE 70; PULSE 76; RESP 18; TEMP 36.7; O2SAT 95; O2SAT 96; BMI 27.4
[2025-03-05 16:06] LABS: MANUAL DIFF FLAG NO
[2025-03-05 16:07] LABS: Hematocrit 26.8 % (37.0-47.0); Hemoglobin 8.9 g/dl (12.0-16.0); Imm Gran Abs Auto 0.01 X10*3/uL (0.00-0.03); Imm Gran Pct Auto 0.2 % (0.0-0.4); Lymphocytes Absolute Auto 0.8 X10*3/uL (1.2-4.9); Mean Corpuscular HGB Conc 33.2 g/dl (31.0-35.0); Mean Corpuscular Hemoglobin 28.3 pg (27.0-33.0); Mean Corpuscular Volume 85.4 fL (80.0-98.0); NRBC Abs Auto 0.000 X10*3/uL (0.0-0.012); NRBC Pct Auto 0.0 /100WBC (0.0-0.2); Platelet Count 231 X10*3/uL (160-400); Red Blood Count 3.14 X10*6/uL (4.20-5.50); White Blood Count 4.4 X10*3/uL (4.8-10.8)
[2025-03-05 16:22] LABS: COVID-19 Test Negative (Negative); IDNOW Serial# 58CA691E
[2025-03-05 16:23] LABS: IDNOW Serial# 55D5AD1C; Influenza B2 Negative (Negative)
[2025-03-05 16:30] LABS: Anion Gap 10 (12-20); Blood Urea Nitrogen 4 mg/dL (9-16); Calcium 8.3 mg/dL (8.4-10.2); Carbon Dioxide 22 mmol/L (22-29); Chloride 111 mmol/L (96-108); Creatinine Clr Calc Pharmacy 84.0; Estimated Glomerular Filt Rate > 60; Potassium 3.4 mmol/L (3.3-5.1); Sodium 140 mmol/L (135-145)
--- OUTSIDE RECORDS SUMMARY | 2025-03-05 16:53 | XMS_ITS | Encounter Summary ---
Author Organization [employer] Address 75 [facility] 7t [place] [address] Care Team Providers Care Anthropological Linguist Name Role Phone Marjan Sams MD Primary Care Provider [phone] Esteban Nice MD Unavailable Ashley Chanel OD Unavailable [phone] Alban Koehler Unavailable Sonja Patel MD Unavailable [phone] Jack Lyles Unavailable Encounter Details Date Type Department Care Team (Late st Contact Info) Description 02/25/2025 Orders Only [facility] [address] [place] [address] Provider, MD Yoseph Social History Tobacco Use Types Packs/Day Years [...] your housing situation today? I have lynda alexadner 02/13/[address] you li [...] Description 03/13/2025 9:45 AM EDT Office Visit [facility] [address] [place] [address] Marjan Sams MD [address] [place] [address] 06/12/2025 10:30 AM EST Clinical Support [facility] [address] [place] [address] Viridiana Hernández RN 505 [place] [address] documented as of this encounter Procedures Procedure Name Priority Date/Time Associated Diagnosis Comments PET/CT BONE SKULL BASE TO MID THIGH Routine 02/24/2025 11:00 AM EDT documented in this encounter Results * PET/CT Bone Skull Base to Mid Thigh (02/24/2025 11:00 AM EDT) Anatomical Region Laterality Modality Body Computed Tomogra phy us Historical Provider MD NELSON CT PROCEDURES Final R esult documented in this encounter Visit Diagnoses Not on filedocumented in this encounter Additional Health Concerns Assessment Noted Time PHQ-9 Depression Total Score: 4 02/13/20 24 9:45 AM EDT documented as of this encounter Care Teams Anthropological Linguist Relationship Specialty Start Date End Date Marjan Sams MD 230 [place] [address] PCP - General Family Medicine 06/04/18 Esteban Nice MD [address] [place] [address] Rheumatology 05/21/24 Ashley Chanel OD 180 [place] [address] Optometry 05/21/24 Alban Koehler 175 [facility] [address] [place] [address] Podiatry 10/08/24 Sonja Patel MD 575 [place] [address] Hematology and Oncology 02/26/25 Jack Lyles [address] [facility] [address] [place], [place] [address] Thoracic Surgery 02/26/25 Dea Hewitt MD Rheumatology 10/06/24 documented as of this encounter
--- OUTSIDE RECORDS SUMMARY | 2025-03-05 16:53 | XMS_ITS | Encounter Summary ---
Author Organization [employer] Address 75 [facility] 7t [place] [address] Care Team Providers Care Stretch Machine Operator Name Role Phone Marjan Sams MD Primary Care Provider [phone]- [phone] Esteban Nice MD Unavailable Ashley Chanel OD Unavailable [phone] Alban Koehler Unavailable Sonja Patel MD Unavailable [phone] Jack Lyles Unavailable Encounter Details Date Type Department Care Team (Late st Contact Info) Description 03/22/2023 Abstract [facility] 230 [place], [place] [phone] Marjan Sams MD 230 [place], [place] [phone] Preventative health care; Osteoarthritis of knee, unspecified [...] Description 03/13/2025 9:45 AM EDT Office Visit [facility] [address] [place] [address] Marjan Sams MD [address] [place] [address] 06/12/2025 10:30 AM EST Clinical Support [facility] [address] [place] [address] Viridiana Hernández, KIMBERLY [address] [place] [address] documented as of this encounter Visit Diagnoses Diagnosis Preventative health care Routine general medical examination at a health care facility Osteoarthritis of knee, unspecified laterality, unspecified osteoarthritis type documented in this encounter Additional Health Concerns Assessment Noted Time PHQ-9 Depression Total Score: 0 11/04/19 23 10:28 AM EDT documented as of this encounter Care Teams Stretch Machine Operator Relationship Specialty Start Date End Date Marjan Sams MD [address] [place] [address] PCP - General Family Medicine 06/04/18 Esteban Nice MD [address] [place] [address] Rheumatology 05/21/24 Ashley Chanel OD 180 [place] [address] Optometry 05/21/24 Alban Koehler 175 [facility] 110 [place] [address] Podiatry 10/08/24 Sonja Patel MD [address] [place] [address] Hematology and Oncology 02/26/25 Jack Lyles 299 [facility] 410 [place], [place] [address] Thoracic Surgery 02/26/25 Dea Hewitt MD Rheumatology 10/06/24 documented as of this encounter
--- OUTSIDE RECORDS SUMMARY | 2025-03-05 16:53 | XMS_ITS | Encounter Summary ---
Author Organization [employer] Address 75 [facility] 7t [place] [address] Care Team Providers Care Order Takers Supervisor Name Role Phone Marjan Sams MD Primary Care Provider +1- [phone] Esteban Nice MD Unavailable Ashley Chanel OD Unavailable [phone] Alban Koehler Unavailable Sonja Patel MD Unavailable [phone] Jack Lyles Unavailable Reason for Visit * Reason Onset Date Comments Med Refill 02/21/2024 Encounter Details Date Type Department Care Team (Late st Contact Info) Description 02/21/2024 Telephone [facility] MEDICINE [address] [place] [address] Marjan Sams MD 230 [place], [place] [phone] Med Refill Social History Tobacco Use Types [...] is your housing situation today? I have lnydagerardo alexander 02/13/[address] you [...] 5-325 MG tablet To be sent to: [facility]/pharmacy #[id number] [place] [address] - [address] [place] [address] documented in this encounter Plan of Treatment Upcoming Encounters Date Type Department Care Team (Late st Contact Info) Description 03/13/2025 9:45 AM EDT Office Visit [facility] MEDICINE [address] [place] [address] [phone] Marjan Sams MD [address] [place] [address] 06/12/2025 10:30 AM EST Clinical Support [facility] MEDICINE 230 [place] [address] Viridiana Hernández, KIMBERLY [address] [place] [address] documented as of this encounter Visit Diagnoses Not on filedocumented in this encounter Additional Health Concerns Assessment Noted Time PHQ-9 Depression Total Score: 4 02/13/20 24 9:45 AM EDT documented as of this encounter Care Teams Order Takers Supervisor Relationship Specialty Start Date End Date Marjan Sams MD 230 [place] [address] PCP - General Family Medicine 06/04/18 Esteban Nice MD [address] [address] Rheumatology 05/21/24 Ashley Chanel OD 180 [place] [address] Optometry 05/21/[address] 175 [facility] 110 [place] [address] Podiatry 10/08/24 Sonja Patel MD [address] [place] [address] Hematology and Oncology 02/26/25 Jack Lyles 299 [facility] 410 [place], [place] 1104 Thoracic Surgery 02/26/25 Dea Hewitt MD Rheumatology 10/06/24 documented as of this encounter
--- OUTSIDE RECORDS SUMMARY | 2025-03-05 16:53 | XMS_ITS | Encounter Summary ---
Author Organization [employer] Address 75 [facility] 7t [place] [address] Care Team Providers Care Staff Mechanical Engineer Name Role Phone Marjan Sams MD Primary Care Provider [phone]- [phone] Esteban Nice MD Unavailable Ashley Chanel OD Unavailable [phone] Alban Koehler Unavailable Sonja Patel MD Unavailable [phone] Jack Lyles Unavailable Reason for Visit * Reason Onset Date Comments Med Refill 01/21/2024 Encounter Details Date Type Department Care Team (Late st Contact Info) Description 01/21/2024 Telephone [facility] MEDICINE [address] [place] [address] [phone] Marjan Sams MD 230 [place], [place] [phone] Med Refill Social History Tobacco Use Types [...] the past 12 months, has t he [employer], gas, oil or water company threatened to [...] 5-325 MG tablet To be sent to: [facility] documented in this encounter Plan of Treatment Upcoming Encounters Date Type Department Care Team (Late st Contact Info) Description 03/13/2025 9:45 AM EDT Office Visit [facility] MEDICINE [address] [place] [address] Marjan Sams MD 230 [place] [address] 06/12/2025 10:30 AM EST Clinical Support [facility] MEDICINE [address] [place] [address] Viridiana Hernández RN 505 [place] [address] documented as of this encounter Visit Diagnoses Not on filedocumented in this encounter Additional Health Concerns Assessment Noted Time PHQ-9 Depression Total Score: 0 11/04/19 23 10:28 AM EDT documented as of this encounter Care Teams Staff Mechanical Engineer Relationship Specialty Start Date End Date Marjan Sams MD 230 [place] [address] PCP - General Family Medicine 06/04/18 Esteban Nice MD [address] [place] [address] 402 [place] [address] Rheumatology 05/21/24 Ashley Chanel OD 180 [place] [address] Optometry 05/21/[address] [facility] 110 [place] [address] Podiatry 10/08/24 Sonja Patel MD [address] [place] [address] Hematology and Oncology 02/26/25 Jack Lyles 299 [facility] 410 [place], [place] 1104 Thoracic Surgery 02/26/25 Dea Hewitt MD Rheumatology 10/06/24 documented as of this encounter
--- OUTSIDE RECORDS SUMMARY | 2025-03-05 16:53 | XMS_ITS | Clinical Summary ---
Author Organization [facility] Address 175 [place] [address] Phone Care Team Providers Care Tugboat Dispatcher Name Role Phone MehrdadElizabeth soto Primary Care Provider +1- [phone] Allergies No known active allergies Encounters Date Type Department Care Team Description 02/24/2025 8:43 AM EDT - 02/24/2025 11:59 PM EDT Hospital Encounter [facility] PET Scan [address] [place] [address] Abnormal radiologic finding of lung field Discharge Disposition: Home or Self Care from Last 3 Months Social History Tobacco Use Types Packs/Day Years [...] 10/07/2024 9:01 AM EDT Plan of Treatment Health Maintenance Due Date Last Done Comments Breast Cancer Screening 1966 Colorectal Cancer Screening: Colonoscopy 1966 Cervical Cancer Screening: Pap Smear 1987 Depression Screening 06/04/2024 Medicare Annual Wellness Visit 10/02/2024 Social Influencers of Health Screening 10/02/2024 COVID-19 Vaccine (3 season) 2025 06/25/2023, 07/31/2022 Influenza Vaccine (#1) 2025 , 04/06/2023, 03/10/2022, Additional history exists Hypertension/CHF/CAD Annual BMP Blood Test 02/17/2026 02/17/2025, 09/18/2024 Cholesterol Screening (Lipid Panel) 02/12/2029 02/13/2024 [...] Procedure Name Priority Date/Time Associated Diagnosis Comments PET CT SKULL TO MID THIGH INITIAL Routine 02/24/2025 10:36 AM EDT Abnormal radiologic finding of lung field from Last 3 Months Results * PET CT Skull to Mid Thigh Initial (02/24/2025 10:36 AM EDT) Anatomical Region Laterality Modality Body Radiographic Erendira ging 02/24/2025 12:1 0 PM EDT Impressions 02/24/2025 12:37 PM EDT Impression: Left upper lobe collapse with FDG avid lesions as above. -------- FINAL REPORT -------- Dictated By: Lilliam Walsh Dictated Date: 02/24/2025 12:10 ET Assigned Physician: Lilliam Walsh Reviewed and Electronically Signed By: Lilliam Walsh Signed Date: 02/24/2025 12:37 ET Workstation ID: [id number] Transcribed By: Self Edit Transcribed Date: 02/24/2025 12:20 ET Narrative 02/24/2025 12:[address] Scan CLINICAL HISTORY: ABNORMAL FINDING OF LUNG BASED ON CT CHEST . Technique: The patient received an intravenous injection of fluorine 18 fluorodeoxyglucose. After a short delay a whole body PET scan was obtained from the skull base through midthighs. Additionally a low dose, unenhanced CT scan was acquired for attenuation correction and anatomic localization. The CT portion of the examination was done strictly for attenuation correction and is not a true diagnostic CT examination. Total DLP: 559 mGy/cm Blood glucose level in mg/dl: 88 FDG dose in mCi: 13 point Comparison: None Findings: Head and Neck: No hypermetabolic abnormality. Atherosclerotic plaque of the carotids significant atherosclerotic plaque of the origin of the left subclavian artery likely resulting in stenosis but unable to be fully evaluated secondary to lack of IV contrast. Chest: There is complete left upper lobe collapse with FDG avid lesions, one at the hilum which likely is obstructing the airway SUVmax = 17.1. Additionally, there are 2 other separate large foci of FDG avidity SUVmax = 18.04. There is some low-level FDG uptake in the pleura along the lateral left rib, SUVmax 3.93. No significant uptake within the subcentimeter left cardiophrenic node SUVmax = 2.17. Atherosclerotic plaque of the aorta with coronary artery calcifications as well. Right lung is clear. Abdomen and Pelvis: No hypermetabolic abnormality. Extensive atherosclerotic plaque of the aorta with abdominal aortic ectasia measuring 2.7 cm. Thickening of the sigmoid colon presumably related to underdistention. No acute infectious or inflammatory process. No periappendiceal inflammatory change. No suspicious pelvic mass. Lobulated contour of the kidneys. Capsular calcification of the spleen presumably postinflammatory. Musculoskeletal: No hypermetabolic abnormality.Degenerative changes of the hips and spine. Procedure Note Lilliam Walsh MD - 02/24/[address] Scan CLINICAL HISTORY: ABNORMAL FINDING OF LUNG BASED ON CT CHEST . Technique: The patient received an intravenous injection of fluorine 18fluorodeoxyglucose. After a short delay a whole body PET scan wasobtained from the skull base through midthighs. Additionally a low dose,unenhanced CT scan was acquired for attenuation correction and anatomiclocalization. The CT portion of the examination was done strictly forattenuation correction and is not a true diagnostic CT examination. TotalDLP: 559 mGy/cm Blood glucose level in mg/dl: 88 FDG dose in mCi: 13 point Comparison: None Findings: Head and Neck: No hypermetabolic abnormality. Atherosclerotic plaque ofthe carotids significant atherosclerotic plaque of the origin of the leftsubclavian artery likely resulting in stenosis but unable to be fullyevaluated secondary to lack of IV contrast. Chest: There is complete left upper lobe collapse with FDG avid lesions,one at the hilum which likely is obstructing the airway SUVmax = 17.1.Additionally, there are 2 other separate large foci of FDG avidity SUVmax= 18.04. There is some low-level FDG uptake in the pleura along thelateral left rib, SUVmax 3.93. No significant uptake within thesubcentimeter left cardiophrenic node SUVmax = 2.17. Atherosclerotic plaque of the aorta with coronary artery calcifications aswell. Right lung is clear. Abdomen and Pelvis: No hypermetabolic abnormality. Extensiveatherosclerotic plaque of the aorta with abdominal aortic ectasiameasuring 2.7 cm. Thickening of the sigmoid colon presumably related tounderdistention. No acute infectious or inflammatory process. Noperiappendiceal inflammatory change. No suspicious pelvic mass.Lobulated contour of the kidneys. Capsular calcification of the spleenpresumably postinflammatory. Musculoskeletal: No hypermetabolic abnormality.Degenerative changes of thehips and spine. IMPRESSION: Impression: Left upper lobe collapse with FDG avid lesions as above. -------- FINAL REPORT -------- Dictated By: Lilliam Walsh Dictated Date: 02/24/2025 12:10 ET Assigned Physician: Lilliam Walsh Reviewed and Electronically Signed By: Lilliam Walsh Signed Date: 02/24/2025 12:37 ET Workstation ID: [id number] Transcribed By: Self Edit Transcribed Date: 02/24/2025 12:20 ET us Yann Fu MD IMG NM PROCEDURES Final Result from Last 3 Months Insurance [employer] MEDICARE ADVANTAGE MEDICAID - [place] Care Teams Tugboat Dispatcher Relationship Specialty Start Date End Date Elizabeth Ly DO [address] [place] [address] PCP - General Family Medicine 10/02/24
--- OUTSIDE RECORDS SUMMARY | 2025-03-05 16:53 | XMS_ITS | Encounter Summary ---
Author Organization [employer] Address 75 [facility] 7t [place] [address] Care Team Providers Care Solid Plasterer Name Role Phone Marjan Sams MD Primary Care Provider [phone]- [phone] Esteban Nice MD Unavailable Ashley Chanel OD Unavailable [phone] Alban Koehler Unavailable Sonja Patel MD Unavailable [phone] Jack Lyles Unavailable Reason for Visit * Reason Onset Date Comments Call Back Request 10/14/2024 Encounter Details Date Type Department Care Team (Late st Contact Info) Description 10/14/2024 Telephone [facility] MEDICINE [address] [place] [address] Marjan Sams MD 230 [place] [address] Call Back Request (/) Social History Tobacco [...] RN - 10/14/2024 12:04 PM EDT Called [facility] Centralized scheduling who said that the pt has a DEXA scan scheduled for 10/29/24 but noultrasounds today or otherwise. Nothing noted in chart. Called pt and informed her of this, pt unaware of US ordered by specialist. Advised her if anything else comes up regarding this will let her know. Pt verbalized understanding. Cement Car Dumper found note in chart from xray of the spine ordered by Dr Koehler (podiatry) that recommended follow up Vascular US abdominal aorta aneurysm (AAA) screening. Called pt back to advise of this and gave her phone number to call to clarify with Dr Koehler and to reschedule. [phone] . Pt verbalized understanding, to call that [...] Description 03/13/2025 9:45 AM EDT Office Visit [facility] MEDICINE [address] [place] [address] Marjan Sams MD [address] [place] [address] 06/12/2025 10:30 AM EST Clinical Support [address] [address] Viridiana Hernández RN 505 [place] [address] documented as of this encounter Visit Diagnoses Not on filedocumented in this encounter Additional Health Concerns Assessment Noted Time PHQ-9 Depression Total Score: 4 02/13/20 24 9:45 AM EDT documented as of this encounter Care Teams Solid Plasterer Relationship Specialty Start Date End Date Marjan Sams MD [address] [place] [address] PCP - General Family Medicine 06/04/18 Esteban Nice MD [address] [place] [address] Rheumatology 05/21/24 Ashley Chanel OD 180 [place] [address] Optometry 05/21/[address] 175 [facility] 110 [place] [address] Podiatry 10/08/24 Sonja Patel MD [address] [place] [address] Hematology and Oncology 02/26/25 Jack Lyles 299 [facility] 410 [place] 1104 Thoracic Surgery 02/26/25 Dea Hewitt MD Rheumatology 10/06/24 documented as of this encounter
--- OUTSIDE RECORDS SUMMARY | 2025-03-05 16:53 | XMS_ITS | Encounter Summary ---
Author Organization [employer] Address 75 [facility] 7t [place] [address] Care Team Providers Care Rubber Vulcanizing Machine Operator Name Role Phone Marjan Sams MD Primary Care Provider [phone]- [phone] Esteban Nice MD Unavailable Ashley Chanel OD Unavailable [phone] Alban Koehler Unavailable Sonja Patel MD Unavailable [phone] Jack Lyles Unavailable Reason for Visit * Reason Onset Date Comments Med Refill 10/20/2024 Encounter Details Date Type Department Care Team (Late st Contact Info) Description 10/20/2024 Refill [facility] CHC MED & PEDS 505 [place], [place] [phone] Marjan Sams MD [address] [place] [address] Arthritis of both knees Social History Tobacco [...] 9:45 AM EDT Office Visit [facility] MEDICINE [address] [place] [address] Marjan Sams MD [address] [place] [address] 06/12/2025 10:30 AM EST Clinical Support [facility] MEDICINE [address] [place] [address] Viridiana Hernández RN 505 [place] [address] documented as of this encounter Visit Diagnoses Diagnosis Arthritis of both knees documented in this encounter Additional Health Concerns Assessment Noted Time PHQ-9 Depression Total Score: 4 02/13/20 24 9:45 AM EDT documented as of this encounter Care Teams Rubber Vulcanizing Machine Operator Relationship Specialty Start Date End Date Marjan Sams MD 230 [place] [address] PCP - General Family Medicine 06/04/18 Esteban Nice MD [address] [place] [address] 402 [place] [address] Rheumatology 05/21/24 Ashley Chanel OD 180 [place] [address] Optometry 05/21/24 Alban Koehler 175 [facility] 110 [place] [address] Podiatry 10/08/24 Sonja Patel MD [address] [place] [address] Hematology and Oncology 02/26/25 Jack Lyles 299 [facility] 410 [place], [place] 110 Thoracic Surgery 02/26/25 Dea Hewitt MD Rheumatology 10/06/24 documented as of this encounter
--- OUTSIDE RECORDS SUMMARY | 2025-03-05 16:53 | XMS_ITS | Encounter Summary ---
Author Organization [employer] Address 75 [facility] 7t [place] [address] Care Team Providers Care Joint Cutter Name Role Phone Marjan Sams MD Primary Care Provider [phone]- [phone] Esteban Nice MD Unavailable Ashley Chanel OD Unavailable [phone] Alban Koehler Unavailable Sonja Patel MD Unavailable [phone] Jack Lyles Unavailable Reason for Visit * Reason Comments Med Refill Encounter Details Date Type Department Care Team (Late st Contact Info) Description 12/19/2024 Refill [facility] MEDICINE 230 [place] [address] Marjan Sams MD 230 [place] [address] History of DVT (deep vein thrombosis) Social [...] 03/13/2025 9:45 AM EDT Office Visit [facility] MEDICINE [address] [place] [address] Marjan Sams MD [address] [place] [address] 06/12/2025 10:30 AM EST Clinical Support [facility] MEDICINE [address] [place] [address] Viridiana Hernández RN 505 [place] [address] documented as of this encounter Visit Diagnoses Diagnosis History of DVT (deep vein thrombosis) documented in this encounter Additional Health Concerns Assessment Noted Time PHQ-9 Depression Total Score: 4 02/13/20 24 9:45 AM EDT documented as of this encounter Care Teams Joint Cutter Relationship Specialty Start Date End Date Marjan Sams MD 230 [place] [address] PCP - General Family Medicine 06/04/18 Esteban Nice MD [address] 402 [place] [address] Rheumatology 05/21/24 Ashley Chanel OD 180 [place] [address] Optometry 05/21/[address] [facility] 110 [place] [address] Podiatry 10/08/24 Sonja Patel MD [address] [place] [address] Hematology and Oncology 02/26/25 Jack Lyles 299 [facility] 410 [place], [place] 110 Thoracic Surgery 02/26/25 Dea Hewitt MD Rheumatology 10/06/24 documented as of this encounter
--- OUTSIDE RECORDS SUMMARY | 2025-03-05 16:53 | XMS_ITS | Encounter Summary ---
Author Organization [employer] Address 75 [facility] 7t [place] [address] Care Team Providers Care Optometrist Assistant Name Role Phone Marjan Sams MD Primary Care Provider [phone]- [phone] Esteban Nice MD Unavailable Ashley Chanel OD Unavailable [phone] Alban Koehler Unavailable Sonja Patel MD Unavailable [phone] Jack Lyles Unavailable Reason for Visit * Reason Onset Date Comments PT1 10/09/2024 Encounter Details Date Type Department Care Team (Late st Contact Info) Description 10/09/2024 Telephone [facility] MEDICINE [address] [place] [address] [phone] Marjan Sams MD 230 [place], [place] [phone] PT1 Social History Tobacco Use Types Packs/Day [...] Y/N: Yes Provider name or facility name: [address] [place] [address] Escort needed: Y/N: No Do you have a wheelchair: Y/N: No If yes- Manual or electric: N/A Visits: (2x monthly) documented in this encounter Plan of Treatment Upcoming Encounters Date Type Department Care Team (Late st Contact Info) Description 03/13/2025 9:45 AM EDT Office Visit [facility] MEDICINE [address] [place] [address] Marjan Sams MD 230 [place] [address] 06/12/2025 10:30 AM EST Clinical Support [facility] MEDICINE [address] [place] [address] Viridiana Hernández, KIMBERLY 505 [place] [address] documented as of this encounter Visit Diagnoses Not on filedocumented in this encounter Additional Health Concerns Assessment Noted Time PHQ-9 Depression Total Score: 4 02/13/20 24 9:45 AM EDT documented as of this encounter Care Teams Optometrist Assistant Relationship Specialty Start Date End Date Marjan Sams MD [address] [place] [address] PCP - General Family Medicine 06/04/18 Esteban Nice MD [address] [place] [address] [phone] Rheumatology 05/21/24 Ashley Chanel OD 180 [place] [address] Optometry 05/21/24 Alban Koehler 175 [facility] 110 [place] [address] Podiatry 10/08/24 Sonja Patel MD [address] [place] [address] Hematology and Oncology 02/26/25 Jack Lyles [address] 110 Thoracic Surgery 02/26/25 Dea Hewitt MD Rheumatology 10/06/24 documented as of this encounter
--- OUTSIDE RECORDS SUMMARY | 2025-03-05 16:53 | XMS_ITS | Encounter Summary ---
Author Organization [employer] Address [address] [facility] [address] 7t [place] [address] Care Team Providers Care Park Ranger Name Role Phone Marjan Sams MD Primary Care Provider [phone]- [phone] Esteban Nice MD Unavailable Ashley Chanel OD Unavailable [phone] Alban Koehler Unavailable Sonja Patel MD Unavailable [phone] Jack Lyles Unavailable Encounter Details Date Type Department Care Team (Late st Contact Info) Description 03/05/2025 Telephone [facility] CHC MED & PEDS 505 [place], [place] [phone] Viridiana Hernández, RN 505 [place], [place] [phone] Social History Tobacco Use Types Packs/Day Years [...] Telephone Encounter - Viridiana Hernández RN - 03/05/2025 1:15 PM EDT TC to pt to r/s junior business analyst appointment. Appointment on 06/05/25 was scheduled in error, [facility] closed that thatfor a holiday. Appointment r/s to 06/12/25 @ 10:30am. documented in this encounter Plan of Treatment Upcoming Encounters Date Type Department Care Team (Late st Contact Info) Description 03/13/2025 9:45 AM EDT Office Visit [facility] MEDICINE [address] [place] [address] Marjan Sams MD 230 [place] [address] 06/12/2025 10:30 AM EST Clinical Support [facility] MEDICINE 230 [place] [address] Viridiana Hernández, RN 505 [place] [address] documented as of this encounter Visit Diagnoses Not on filedocumented in this encounter Additional Health Concerns Assessment Noted Time PHQ-9 Depression Total Score: 4 02/13/20 24 9:45 AM EDT documented as of this encounter Care Teams Park Ranger Relationship Specialty Start Date End Date Marjan Sams MD 230 [place] [address] PCP - General Family Medicine 06/04/18 Esteban Nice MD [address] [place] [address] Rheumatology 05/21/24 Ashley Chanel OD 180 [place] [address] Optometry 05/21/24 Alban Koehler 175 [facility] 110 [place] [address] Podiatry 10/08/24 Sonja Patel MD 575 [place] [address] Hematology and Oncology 02/26/25 Jack Lyles [address] 110[address] Thoracic Surgery 02/26/25 Dea Hewitt MD Rheumatology 10/06/24 documented as of this encounter
--- OUTSIDE RECORDS SUMMARY | 2025-03-05 16:53 | XMS_ITS | Encounter Summary ---
Author Organization [employer] Address [address] [facility] 7[address] [place] [address] Care Team Providers Care Field Collector Name Role Phone Marjan Sams MD Primary Care Provider [phone] Esteban Nice MD Unavailable Ashley Chanel OD Unavailable [phone] Alban Koehler Unavailable Sonja Patel MD Unavailable [phone] Jack Lyles Unavailable Encounter Details Date Type Department Care Team (Late st Contact Info) Description 06/29/2022 Abstract [facility] MEDICINE [address] [place] [address] [phone] Marjan Sams MD [address] [place] [address] [phone] Social History Tobacco Use Types Packs/Day Years [...] 03/13/2025 9:45 AM EDT Office Visit [facility] MED[facility]INE [address] [place] [address] [phone] Marjan Sams MD [address] [place] [phone] 06/12/2025 10:30 AM EST Clinical Support [facility] [address] [place] [address] Viridiana Hernández RN [address] [place] [address] documented as of this encounter Procedures Procedure [...] on filedocumented in this encounter Care Teams Field Collector Relationship Specialty Start Date End Date Marjan Sams MD [address] [place] [address] PCP - General Family Medicine 06/04/18 Esteban Nice MD [address] [place] [address] Rheumatology 05/21/24 Ashley Chanel OD [address] [place] [address] Optometry 05/21/24 Alban Koehler [address] [address] Podiatry 10/08/24 Sonja Patel MD [address] [place] [address] Hematology and Oncology 02/26/25 Jack Lyles [address] [place] [address] Thoracic Surgery 02/26/25 Dea Hewitt MD Rheumatology 10/06/24 documented as of this encounter
--- OUTSIDE RECORDS SUMMARY | 2025-03-05 16:53 | XMS_ITS | Encounter Summary ---
Author Organization [employer] Address [address] [facility] 7t [place] [address] Care Team Providers Care Sheep Shearer Name Role Phone Marjan Sams MD Primary Care Provider [phone] Esteban Nice MD Unavailable Ashley Chanel OD Unavailable [phone] Alban Koehler Unavailable Sonja Patel MD Unavailable [phone] Jack Lyles Unavailable Reason for Visit * Reason Onset Date Comments Med Refill 01/19/2023 Encounter Details Date Type Department Care Team (Late st Contact Info) Description 01/19/2023 Telephone [facility] MEDICINE [address] [place] [phone] Marjan Sams MD [address] [place], [place] [phone] Med Refill Social History Tobacco Use Types [...] 5-325 MG tablet Please sent to [facility]/pharmacy #[id number] - [place] - [address] [facility] documented in this encounter Plan of Treatment Upcoming Encounters Date Type Department Care Team (Late st Contact Info) Description 03/13/2025 9:45 AM EDT Office Visit [address] [address] Marjan Sams MD [address] [place] [address] 06/12/2025 10:30 AM EST Clinical Support [address] [address] Viridiana Hernández, RN [address] [place] [address] documented as of this encounter Visit Diagnoses Not on filedocumented in this encounter Additional Health Concerns Assessment Noted Time PHQ-9 Depression Total Score: 0 11/04/19 23 10:28 AM EDT documented as of this encounter Care Teams Sheep Shearer Relationship Specialty Start Date End Date Marjan Sams MD [address] [place] [address] PCP - General Family Medicine 06/04/18 Esteban Nice MD [address] [place] [address] Rheumatology 05/21/24 Ashley Chanel OD [address] [place] [address] Optometry 05/21/24 Alban Koehler [address] [address] Podiatry 10/08/24 Sonja Patel MD [address] [place] [address] Hematology and Oncology 02/26/25 Jack Lyles 299 [facility] [address] [place], [place] [address] Thoracic Surgery 02/26/25 Dea Hewitt MD Rheumatology 10/06/24 documented as of this encounter
--- OUTSIDE RECORDS SUMMARY | 2025-03-05 16:53 | XMS_ITS | Clinical Summary ---
Author Organization [employer] Address [address] [place] [address] Care Team Providers Care Green Coffee Blender Name Role Phone Marjan Sams MD Primary Care Provider [phone] Esteban Nice MD Unavailable Ashley Chanel OD Unavailable [phone] Alban Koehler Unavailable Sonja Patel MD Unavailable [phone] Jack Lyles Unavailable Allergies No known active allergies Medications levalbuterol (Xopenex) 1.25 MG/3ML nebulizer solutionIndica tions:Mild asthma with acute exacerbation, unspecified whether persistent Use 3 ml po q 4 hours prn 300 mL 3 08/11/19 23 Active hydroxychloroq uine (Plaquenil) 200 MG tabletIndicati ons:Systemic lupus erythematosus, unspecified SLE type, unspecified organ involvement status (CMS/HCC) ([facility]) Take 200 mg by mouth 2 times daily. Per rheumatology Active naloxone (Narcan) 4 mg/0.1 mL nasal sprayIndicatio ns:Chronically on opiate therapy Administer 1 spray (4 mg) into affected nostril(s) if needed for opioid reversal. 2 each 02/13/20 24 Active Fluticasone Furoate-Vilant sugar (Breo Ellipta) 200-25 MCG/ACT aerosol powderIndicati ons:Chronic obstructive pulmonary disease, unspecified COPD type (CMS/HCC) ([facility]) Inhale 1 Inhalation. Once per day. 1 each 02/13/20 24 Active albuterol 108 (90 Base) MCG/ACT inhalerIndicat ions:Chronic obstructive pulmonary disease, unspecified COPD type (CMS/HCC) (HCC) Take 2 puffs po q 4 hours [...] Whiteside RN Problem Noted Date Diagnosed Date Squamous cell carcinoma lung, left (CMS/HCC) Overview (02/26/2025): -CT scan for tobacco screening 01/27/25 Impression: [...] Will obtain PET-CT, PFT, and transcutaneous biopsy -Note from Dr. Fu 02/24/25 Reviewed pathology from left lung biopsy performed on 02/17 with patient which revealed invasive squamous cell carcinoma. Discussed referral to oncology now with consideration for thoracic referral in the future. PET scan scheduled tomorrow through [facility]. Reviewed PFT which revealed moderate to severe obstructive ventilatory defect with restrictive ventilatory defect with no bronchodilator response. Increased residual volume suggests air trapping. Decreased diffusion capacity, 27%, suggests emphysema. She reports suboptimal effect with current regimen with ongoing dyspnea and dry cough, will switch Breo to Trelegy. All questions were answered and patient is in agreement of plan. Will follow up with Dr. Fu after oncology evaluation. -Oncology Referral placed 02/24/25 by pulmonology -start qwhhejwrekl-gqnqqkkvs-tlmjbppa 200-62.5-25 mcg (Trelegy Ellipta) 1 inh inhalation DAILY 60 ea 3RF 02/24/25 -concology note 02/26/25diagnosed with squamous cell carcinoma of left lung. Screening CT chest that was performed 01/25/2024 revealed masslike consolidation in the left upper lobe measuring 4.2 x 5.3 x 4.8 cm. Mildly enlarged left axillary and few mediastinal and left hilar lymph nodes. No acute findings in the rest of the chest. She had CT-guided core biopsy of left upper lobe mass on 02/17/2025 which revealed invasive squamous cell carcinoma. PD-L1 expression positive, TPS 2%, CPS 5. Molecular studies to be ordered. PET-CT performed at [facility] on 02/24/2025 revealed complete left upper lobe collapse with FDG avid lesions 1 at the hilum with SUV max 17.1. Additionally there are 2 other separate large foci of FDG avidity, SUV max 18.04 in the left upper lung. No other significant hypermetabolic activity in the head neck, abdomen pelvis or musculoskeletal system. Clinical stage T3 N0 based on PET scan. Based on tumor size over 5 cm and multiple nodules in the same lobe, neoadjuvant chemo immunotherapy would be beneficial. To complete staging workup I have ordered brain MRI. She will be referred for surgical recommendations as well. Patient does have systemic lupus erythematosus which is a relative contraindication for immunotherapy. However she is not on steroids and she appears to be fairly well controlled with no symptoms at this time. Patient reports chronic neuropathy of unclear etiology. Her kidney functions are normal. She could potentially receive cisplatin based doublet chemotherapy along with immunotherapy in the perioperative setting. According to radiologist Dr. Walsh, PET scan did not show evidence of mediastinal or hilar lymphadenopathy. Bronchoscopy would be required as part of pre-surgical evaluation. She will be referred to Dr. Lyles at [facility] for surgical evaluation. 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 [facility] , no changes Assessment & Plan [...] care facilitated by [facility] in [facility] is [facility] -health care proxy: pt reports has at home 06/25/23 Assessment & Plan (10/01/2024 2:58 PM EDT): -next comprehensive annual evaluation due after 10/01/25 -eye care facilitated by [facility] in [facility] is [facility] -health care proxy: pt reports has at home 06/25/23 Assessment & Plan (06/25/2023 11:24 AM EST): -next physical exam due after 06/25/24 -eye care facilitated by [facility] in [facility] is [facility] -health care proxy: pt reports has at [...] as pharmacomtherapy, [facility], and [facility] pharmacy smoking cessation clinic Discussed USPSTF [...] as pharmacomtherapy, [facility] smoking [facility] group, and [facility] pharmacy smoking cessation clinic Discussed USPSTF [...] as pharmacomtherapy, [facility] smoking [facility] group, and [facility] pharmacy smoking cessation clinic Discussed USPSTF [...] modifications -Continue current medications Systemic lupus erythematosus (CMS/HCC) 2 Overview (10/06/2024): Onset 2014 (intermittent leukopenia, oral ulcers, bilateral elbow arthritis, ++ URIAH, [place]/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 Rodriguez 04/15/24 Discussed the [...] oral ulcers, bilateral elbow arthritis, ++ URIAH, [place]/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 Rodriguez 04/15/24 Discussed the [...] fat, and sodium. Exercise counseling 10/01/2024 10/30/19 Assessment & Plan (10/01/2024 3:14 PM EDT): [...] Encounters Date Type Department Care Team Description 03/05/2025 Telephone [facility] MED & PEDS [address] [place], [place] [phone] Viridiana Hernández RN 02/25/2025 Orders Only [employer] [address] [place] [address] Yoseph Altamirano MD 02/23/2025 Telephone [facility] MEDICINE [address] [place] [address] Marjan Sams MD 02/20/2025 9:30 AM EDT Clinical Support [facility] [address] [place] [address] Viridiana Hernández, RN Chronically on opiate therapy (Primary Dx) 02/20/2025 Refill [facility] MED & PEDS [address] [place] [address] Viridiana Hernández, RN Arthritis of both knees 02/20/2025 Travel 02/17/2025 Orders Only GENERIC EXTERNAL DATA DEPARTMENT Provider, Generic External Data 02/10/2025 Patient Outreach [facility] MEDICINE [address] [place] [address] Marjan Sams MD Care Coordination ([facility] outreach for SDOH PT-1 and food needs-referral completed /) 02/10/[address] [address] Marjan Sams MD Pt1 02/10/[address] [address] Marjan Sams MD Tobacco dependence syndrome 02/05/[address] [address] Marjan Sams MD cancel appt 03/12/25 02/05/2025 Travel 02/04/[address] [address] Marajn Sams MD History of DVT (deep vein thrombosis) 01/28/2025 Results Follow-Up [address] Lung Screening Low dose 01/23/2025 Orders Only [facility] External Provider, [facility] Abnormal CT scan, lung (Primary Dx); Tobacco dependence syndrome 01/15/2025 Refill [facility] MEDICINE [address] [place] [phone] Marjan Sams MD Arthritis of both knees 12/26/[address] [address] Marjan Sams MD March Recalls 12/26/2024 Travel 12/19/2024 Refill [facility] [address] [place] [address] Marjan Sams MD History of DVT (deep vein thrombosis) 12/18/2024 Refill [facility] [address] [place] [address] Marjan Sams MD Arthritis of both knees [...] 03/13/2025 9:45 AM EDT Office Visit [facility]INE [address] [place] [phone] Marjan Sams MD [address] [place] [address] 06/12/2025 10:30 AM EST Clinical Support [address] [address] Viridiana Hernández, RN [address] [place], [place] [phone] Health Maintenance Due Date Last Done Comments CT Colonography 1966 FIT DNA/Cologuard 1966 FIT 1965 FOBT 1965 Sigmoidoscopy 1965 Disability Screening 1965 Mammogram 09/23/2024 03/25/2024, 03/05, 02/11/2024, Additional history exists COVID-19 Vaccine ( season) 2025 06/25/2023, 07/31/2022 Depression Screening 02/12/2025 02/13/2024, 02/13/20 24 SDOH Screening 09/23/2025 09/23/2024 Alcohol/Substance Use Screening 10/01/2025 10/01/2024 Tobacco Screening 10/01/2025 10/01/2024 Colonoscopy 03/30/2027 03/30/2017 Colorectal Cancer Screening 03/30/2027 Cervical Cancer Screening 11/04/2027 HPV/Cotest 11/04/2027 11/03/2022, 03/02/2018, 08/04/2016 Pap Smear 11/04/2027 11/03/2022, 08/10/2017 Lipid [...] complete this topic HIV Screening Completed 02/13/2024 Influenza Vaccine Completed 03/02/2025, , 04/06/2023, Additional history exists HIB Vaccines Aged Out [...] MID THIGH Routine 02/24/2025 11:00 AM EDT POCT BLADE-14 URINE DRUG SCREEN Routine 02/20/2025 [...] Recently Relevant to Health Maintenance Results * PET/CT Bone Skull Base to Mid Thigh (02/24/2025 11:00 AM EDT) Anatomical Region Laterality Modality Body Computed Tomogra phy us Historical Provider MD NELSON CT PROCEDURES Final R esult * (ABNORMAL) POCT BLADE-14 Urine Drug Screen [...] - 02/20/2025 9:51 AM EDT .UTOX cup Lot#[id number] Exp. 03/10/26 Internal Pass Control Marjan Sams MD POINT OF CARE TEST ENTER/E DIT ORDERABLES Final Result * XR Chest 2 Views (02/17/2025 12:17 PM EDT) Anatomical Region Laterality Modality Chest Radiographic Erendira ging 02/17/2025 12:1 7 PM EDT Narrative 02/17/2025 12:47 PM EDT [place] [address] XRay Report Signed Patient: Tammy Moeller MR#: [id number] : 1965 Acct:[id number] Age/Sex: 59 / F ADM Date: 02/17/25 Loc: [facility] Attending Dr: Yann Fu MD Ordering Physician: Pranay Arndt MD Date of Service: 02/17/25 Procedure(s): XR chest 2V Accession Number(s): [id number] cc: Marjan Sams MD; Pranay Arndt MD [...] Cm Bass MD 02/17/2025 12:42 PM EDT RP Dictated By: mC Bass MD Signed By: <Electronically signed by Cm Bass MD in OV> 02/17/25 1242 DD/ 1217 TD/TT: 02/17/25 1219 Ear Muff Assembler: Procedure Note Donotuseinterpreter, Image - 02/17/[address] [address] XRay Report Signed Patient: Tammy Moeller#: [id number] : 1965Acct:[id number] Age/Sex: 59 / FADM Date: 02/17/25 Loc: [facility] Attending Dr: Yann Fu MD Ordering Physician: Pranay Arndt MD Date of Service: 02/17/25 Procedure(s): XR chest 2V Accession Number(s): [id number] cc: Marjan Sams MD; Pranay Arndt MD [...] Cm Bass MD 02/17/2025 12:42 PM EDT RP Dictated By: Cm Bass MD Signed By: <Electronically signed by Cm Bass MD in OV> 02/17/25 1242 DD/ 1217 TD/TT: 02/17/25 1219 Ear Muff Assembler: [facility] External Provider IMG XR PROCEDURES Edited Result - Final * Gross and Microscopic Level 4 (02/17/2025 11:02 AM EDT) 02/17/2025 11:0 2 AM EDT 02/17/2025 2:34 PM EDT [facility] - 03/04/2025 11:50 AM EDT ----- ------- Name: Tammy Moeller Age/Sex: 59/F : 1965 Unit#: [id number] Attend Dr: Yann Fu MD Re02/17/25 Status: [facility] Location: [facility] Disch: ----- ------- SPEC : [id number] RECD: 02/17/25 STATUS: GLEN CAMERON NUM: [id number] NICOLETTE: 02/17/25-[address]: Pranay Arndt MD ENTERED: 02/17/25 SP TYPE: Surgical OTHR DR: Marjan Sams MD, Andrey MD ORDERED: Gross Micro L4, IHC, Add. immunos, p40, p63, NSCLC Lung bx COMMENTS: Block A sent to [facility] for xT xR Solid Tumor/PD-L1 on 02/20/25. Addendum Addendum 2 Entered: 03/04/25-[facility] expression 22C3: Positive Tumor proportion score (TPS): 2% Combined positive score (CPS): 5 Genomic variants: Biologically Relevant: RB1: p.K447* Stop gain - LOF 21.2% TP53: p.Q167* Stop gain - LOF 18.9% FUBP1: p.R37* Stop gain - LOF 17.4% KMT2D: p.A0001zp Frameshift - LOF 17.4% B2M: p.P25fs Frameshift - LOF 6.8% DNMT3A: p.R736H Missense variant - LOF 5.1% Tumor/normal matched analysis (potential germline): No normal sample was received, therefore tumor/normal matched analysis was not performed. Pertinent negatives No pathogenic single nucleotide variants, insertions/deletions, or copy number changes found in: EGFR, KRAS, BRAF, ALK, ROS1, RET, MET, ERBB2 (HER2) Immunotherapy markers: Tumor mutational burden: 8.4 m/MB 83rd percentile TMB-Low <10m/MB Microsatellite instability status: Stable For FDA-approved therapies, clinical trials and descriptions of genetic variants, see full report. See the full scanned reports in the EMR - reports/pathology section (camera icons). Addendum Signed (signature on file) Marychuy Reliance 03/04/25 1150 ----- ------- CONTINUED ON NEXT PAGE ----- ------- Name: Tammy Moeller Age/Sex: 59/F : 1965 Unit#: [id number] Attend Dr: Yann Fu MD Re02/17/25 Status: [facility] Location: [facility] Disch: ----- ------- SPEC : [id number] RECD: 02/17/25 STATUS: GLEN CAMERON NUM: [id number] NICOLETTE: 02/17/25-[address]: Pranay Arndt MD ENTERED: 02/17/25 SP TYPE: Surgical OTHR DR: Marjan Sams MD, Andrey MD ORDERED: Gross Micro L4, IHC, Add. immunos, p40, p63, NSCLC Lung bx COMMENTS: Block A sent to [facility] for xT xR Solid Tumor/PD-L1 on 02/20/25. Addendum (Continued) Addendum 1 Entered: 02/19/25 Immunostains show the tumor is positive for p40 and p63, confirming squamous differentiation. Controls stain appropriately. Additional studies pending; report to follow. Addendum Signed (signature on file) Marychuy Moreau 02/19/25914 ----- ------- Diagnosis Lung, left upper lobe [...] submitted in toto in a cassette labeled A. CONTINUED ON NEXT PAGE ----- ------- Name: Tammy Moeller Age/Sex: 59/F : 1965 Unit#: [id number] Attend Dr: Yann Fu MD Re02/17/25 Status: [facility] Location: [facility] Disch: ----- ------- SPEC : [id number] RECD: 02/17/25 STATUS: GLEN CAMERON NUM: [id number] NICOLETTE: 02/17/25-[address]: Pranay Arndt MD ENTERED: 02/17/25 SP TYPE: Surgical OTHR DR: Mrajan Sams MD, Andrey MD ORDERED: Gross Micro L4, IHC, Add. immunos, p40, p63, NSCLC Lung bx COMMENTS: Block A sent to [facility] for xT xR Solid Tumor/PD-L1 on 02/20/25. Gross Description (Continued) CEDS This case was reviewed intradepartmentally. Results given to Raad Arndt and Nickie by secure text by Dr. Moreau on 02/18/2025 at 4:13 pm. Special studies ordered and performed: Immunostains for p40 and p63 on A1. IHC S/NG Disclaimer NOTE: Unless otherwise stated, all tissue is formalin-fixed and paraffin-embedded. Some or all of the immunohistochemical tests reported herein may have been developed and their performance characteristics determined by [facility]. They have not been cleared or approved by the U.S. Food and Drug Administration (FDA). However, the FDA has determined that such clearance or approval is not necessary. This laboratory is certified under the Clinical Laboratory Improvement Amendments of 1988 (CLIA) as qualified to perform high complexity clinical laboratory testing. Copies To: Marjan Sams MD [address] [phone] Pranay Arndt MD [address] [place] [phone] Yann Fu MD [facility] Pulmonology Services [address] [place] [phone] ----- ------- Signed (signature on file) Marychuy Moreau 02/18/25 1615 ----- ------- END OF REPORT us Generic External Data Provider LAB CYTOLOGY ORDSee GOYAL Final Result [facility] [address] [place] [phone] * CT Biopsy Lung Left (02/17/2025 10:35 AM EDT) Anatomical Region Laterality Modality Computed Tomogra phy 02/17/2025 10:3 5 AM EDT Narrative 02/17/2025 2:46 PM EDT [address] [address] [address] Scan Report Signed Patient: Tammy Moeller MR#: [id number] : 1965 Acct:[id number] Age/Sex: 59 / F ADM Date: 02/17/25 Loc: [facility] Attending Dr: Yann Fu MD Ordering Physician: Yann Fu MD Date of Service: 02/17/25 Procedure(s): CT biopsy lung LT Accession Number(s): [id number] cc: Marjan Sams MD; Yann Fu MD Report Number: [id number]: Total DLP = 208.00 mGy-cm Reason for [...] 02/17/25 1442 DD/ 1035 TD/TT: 02/17/25 1119 Ear Muff Assembler: [facility] Procedure Note Donotuseinterpreter, Image - 02/17/[address] [address] [address] Scan Report Signed Patient: Tammy Moeller#: [id number] : 1965Acct:[id number] Age/Sex: 59 / FADM Date: 02/17/25 Loc: [facility] Attending Dr: Yann Fu MD Ordering Physician: Yann Fu MD Date of Service: 02/17/25 Procedure(s): CT biopsy lung LT Accession Number(s): [id number] cc: Marjan Sams MD; Yann Fu MD Report Number: [id number]: Total DLP = 208.00 mGy-cm Reason for [...] Pranay Arndt MD 02/17/2025 02:42 PM EDT RP Dictated By: Pranay Arndt MD Signed By: <Electronically signed by Pranay Arndt MD in OV> 02/17/25 1442 DD/ 1035 TD/TT: 02/17/25 1119 Ear Muff Assembler: JASON [facility] External Provider IMG CT PROCEDURES Edited Result - Final * (ABNORMAL) CBC auto differential (02/17/2025 9:50 AM EDT) White Blood Count 4.6(L) 4.8 - 10.8 X10*3/uL [facility] Red Blood Count 3.45(L) 4.20 - 5.50 X10*6/uL [facility] Hemoglobin 10.1(L) 12.0 - 16.0 g/dl [facility] Hematocrit 30.4(L) 37.0 - 47.0 % [facility] Mean Corpuscular Volume 88.1 80.0 - 98.0 fL [facility] Mean Corpuscular Hemoglobin 29.3 27.0 - 33.0 pg [facility] Mean Corpuscular HGB Conc 33.2 31.0 - 35.0 g/dl [facility] Red Cell Distribution Width 18.6(H) 11.0 - 16.0 % [facility] Platelet Count 244 160 - 400 X10*3/uL [facility] Mean Platelet Volume 8.9(L) 9.4 - 12.3 fL [facility] Neutrophils Percent Auto 77.9(H) 45 - 73 % [facility] Imm Gran Pct Auto 0.2 0.0 - 0.4 % [facility] Lymphocytes Percent Auto 16.8(L) 20 - 40 % [facility] Monocytes Percent Auto 4.7 2 - 11 % [facility] Eosinophils Percent Auto 0.4 0 - 4 % [facility] Basophils Percent Auto 0.0 0 - 2 % [facility] NRBC Pct Auto 0.0 0.0 - 0.2 /100WBC [facility] Neutrophils Absolute Auto 3.6 2.0 - 8.3 x10*3/uL [facility] Imm Gran Abs Auto 0.01 0.00 - 0.03 X10*3/uL [facility] Lymphocytes Absolute Auto 0.8(L) 1.2 - 4.9 X10*3/uL [facility] Monocytes Absolute Auto 0.2 0.1 - 1.2 X10*3/uL [facility] Eosinophils Absolute Auto 0.0 0.0 - 0.4 X10*3/uL [facility] Basophils Absolute Auto 0.0 0.0 - 0.2 X10*3/uL [facility] NRBC Abs Auto 0.000 0.0 - 0.012 X10*3/uL [facility] 02/17/2025 9:50 AM EDT 02/17/2025 9:52 AM EDT us Generic External Data Provider LAB BLOOD ORDERAB LES Final Result Performing Organization Address City/State/[facility] Co de Phone Number [facility] [address] [place] [phone] * Prothrombin Time-INR (02/17/2025 9:50 AM EDT) Prothrombin Time 11.5 10.9 - 12.4 SEC [facility] INTERNATIONAL NORM RATIO 1.0 0.9 - 1.1 [facility] Comment:INTERNATIONAL NORMAL IZED RATIO (INR) REFERENCE [...] ORDERAB LES Final Result Performing Organization Address City/[facility]/ZIP Co de Phone Number [facility] [address] [place] [phone] * (ABNORMAL) Basic Metabolic Panel (02/17/2025 9:50 AM EDT) Sodium 142 135 - 145 mmol/L [facility] Potassium 3.8 3.3 - 5.1 mmol/L [facility] Chloride 114(H) 96 - 108 mmol/L [facility] Carbon Dioxide 22 22 - 29 mmol/L [facility] Anion Gap 10(L) 12 - 20 [facility] Urea Nitrogen (BUN) 6(L) 9 - 16 mg/dL [facility] Creatinine, Serum 0.71 0.5 - 1.4 mg/dL [facility] Creatinine Clr Calc Pharmacy 77.6 [facility] Comment:Provided height and weight: 157.48 cm,67.2 kg.eGFR (calculated from the MDRD study equation) and eCrCl(calculated from the Cockcroft-Gault equation) are based ondifferent parameters and may not yield comparable results.If eCrCl result is absurd, please check patient'sheight/weight. Estimated Glomerular Filt Rate >60 [facility] Comment:Chronic Kidney Disea se: Estimated GFR < 60 mL/min/[id number] Kidney Disease: Estimated GFR < 15 mL/min/1.73m2 Glucose 73 60 - 115 mg/dL [facility] Calcium 8.7 8.4 - 10.2 mg/dL [facility] 02/17/2025 9:50 AM EDT 02/17/2025 9:52 AM EDT us Generic External Data Provider LAB BLOOD ORDERAB LES Final Result [facility] [address] [place] [phone] * CT Lung Screening Low dose (01/24/2025 7:42 PM EDT) Anatomical Region Laterality Modality Lung Computed Tomogra phy 01/24/2025 7:42 PM EDT Narrative 01/24/2025 7:43 PM EDT [address] [address] [address] Scan Report Signed with Addenda Patient: Tammy Moeller MR#: [id number] : 1965 Acct:[id number] Age/Sex: 59 / F ADM Date: 01/23/25 Loc: HO.CT Attending Dr: Magdalene Peoples [employer] Ordering Physician: Awa Heredia PA-C Date of Service: 01/23/25 Procedure(s): CT lung screening Accession Number(s): [id number] cc: Marjan Sams MD; Awa Heredia PA-C Report Number: [id number]: Total DLP = 41.00 mGy-cm ADDENDUM This [...] in OV> 01/24/251942 DD/ 41 TD/TT: 01/24/251941 Ear Muff Assembler: Procedure Note Donotuseinterpreter, Image - 01/27/[address] [address] [address] Scan Report Signed with Addenda Patient: Tammy Moeller#: [id number] : 1965Acct:[id number] Age/Sex: 59 / FADM Date: 01/23/25 Loc: HO.CT Attending Dr: Magdalene Peoples [employer] Ordering Physician: Awa Heredia PA-C Date of Service: 01/23/25 Procedure(s): CT lung screening Accession Number(s): [id number] cc: Marjan Sams MD; Awa Heredia PA-C Report Number: [id number]: Total DLP = 41.00 mGy-cm ADDENDUM This [...] in OV> 01/24/251942 DD/ 41 TD/TT: 01/24/251941 Ear Muff Assembler: [facility] External Provider IMG CT PROCEDURES Edited Result - Final * BI Mammogram Diagnostic Tomosynthesis Bilateral (03/25/2024 2:00 PM EDT) Anatomical Region Laterality Modality Breast Bilateral Mammography 03/25/2024 2:00 PM EDT Narrative 03/25/2024 2:50 PM EDT [facility] [place] [address] Mammography Report Signed Patient: Tammy Moeller MR#: [id number] : 1965 Acct:[id number] Age/Sex: 58 / F ADM Date: 03/25/24 Loc: HO.MAMMO Attending Dr: Marjan Sams MD Ordering Physician: Marjan Sams MD Results: 2B enign Findings Date of Service: 03/25/24 Follow Up: 1 Year From Orig ina Mammogram Procedure(s): MM tomosynthesis diagnostic BI Accession Number(s): [id number] cc: Marjan Sams MD EXAMINATION: MM DIAGNOSTIC [...] 03/25/24 1447 DD/ 1400 TD/TT: 03/25/24 1422 Ear Muff Assembler: Procedure Note Donotuseinterpreter, Image - 03/25/2024 [facility] [address] [place] [address] Mammography Report Signed Patient: Tammy Moeller#: [id number] : 1965Acct:[id number] Age/Sex: 58 / FADM Date: 03/25/24 Loc: HO.MAMMO Attending Dr: Marjan Sams MD Ordering Physician: Marjan Sams MDResults: 2B enign Findings Date of Service: 03/25/24Follow Up: 1 Year From Orig inal Mammogram Procedure(s): MM tomosynthesis diagnostic BI Accession Number(s): [id number] cc: Marjan Sams MD EXAMINATION: MM DIAGNOSTIC [...] 03/25/24 1447 DD/ 1400 TD/TT: 03/25/24 1422 Ear Muff Assembler: us Marjan Sams MD IM BI PROCEDURES Final Re sult * HIV-1/2 Antigen and Antibodies, Fourth Generation, with Reflexes (02/13/2024 10:36 AM EDT) HIV AB/AG Nonreactive Nonreactive [facility] Comment:HIV-1 p24 Ag and/or HIV-1/HIV-2 Ab not detected.A test result that is nonreactive does not exclude thepossibility of exposure to or infection with HIV-1 and/orHIV-2. Nonreactive results in this assay for individualswith prior exposure to HIV-1 and/or HIV-2 may be due toantigen and antibody levels that are below the limit ofdetection of this assay.The Shotsni[employer]ro HIV Ag/Ab Combo assay result andsupplemental assay results should be interpreted inconjunction with the patient's clinical presentation,history and other laboratory results. If the results areinconsistent with clinical evidence, additional testing issuggested to confirm the result. Blood Venous blood specimen / Unknown 02/13/2024 10:36 AM EDT 02/13/2024 11:19 AM EDT us Marjan Sams MD LAB BLOOD ORDERABLES Final Result [facility] [address] [place] [address] [phone] * (ABNORMAL) Lipid Panel, Standard (02/13/2024 10:36 AM EDT) Triglycerides 115 <150 mg/dL [facility] Comment:Desirable Triglyceri de: less than 150 mg/dLBorderline High Triglyceride 150-199 mg/dLHigh Triglyceride: 200-499 mg/dLVery High Triglyceride: greater than or equal to 5OO mg/dL Cholesterol 178 <200 mg/dL [facility] Comment:Desirable Cholestero l: less than 200 mg/dLBorderline High Cholesterol: 200-239 mg/dLHigh Cholesterol: greater than 239 mg/dL LDL Cholesterol Calculated 114(H) <100 mg/dL [facility] Comment:Desirable LDL: less than 100 mg/dLNear Optimal/Above Optimal LDL: 110- 129 mg/dLBorderline High LDL: 130-159 mg/dLHigh LDL: 160-189 mg/dLVery High LDL: greater than or equal to 190 mg/dL HDL Cholesterol 41 >40 mg/dL [facility] Comment:Desirable HDL: great er than 40 mg/dL Note: This HDL assay may give artificially low results in patients with liver disease. Blood Venous blood specimen / Unknown 02/13/2024 10:36 AM EDT 02/13/2024 11:19 AM EDT Marjan Sams MD LAB BLOOD ORDERABLES Final Result [facility] [address] [place] [phone] * Thinprep PAP, HPV mRNA E6/E7 RFX HPV 16,18/45, Chlamydia/N. Gonorrhoeae (11/03/2022 12:00 AM EDT) Clinical Information: ROUTINE [facility] LMP: NONE GIVEN iConcludet Prev. PAP: NONE GIVEN iConcludet Prev. BX: NO [facility] SOURCE: None given SeeVolution Statement Of Adequacy: SATISFACTORY FOR EVALUATION [facility] Interpretation/Re sult: [facility] Comment: Negative for intraepithelial lesion or malignancy. Atrophic pattern; predominantly parabasal cells Towel Weaver: [facility] Comment: WXW, CT(ASCP) CT Screening Location: [place] [address] (Always Message) [facility] [employer] Comment: EXPLANATORY NOTE: The Pap is a [...] HPV nRNA E6/E7 Not Detected Not Detected [facility] Comment: Methodology: Relocation Manager-Mediated Amplification This assay detects E6/E7 viral messenger RNA (mRNA) from 14 high-risk HPV types (16,18,31,33,35,39,45,51,52,56,58,59,66,68). Cervical sources are required for HPV testing. If a vaginal source from a patient who has had a total hysterectomy with removal of cervix was submitted, please contact the testing laboratory for alternative testing options. For additional information, please refer to http://Comparabien.com.Mosaic/faq/AZQ314g7 (This link if provided for information/ educational purposes only.) Chlamydia trachomatis RNA, TMA, Urogenital NOT DETECTED NOT DETECTED [facility] [place] [facility] Neisseria gonorrhoeae RNA, TMA, Urogenital NOT DETECTED NOT DETECTED [facility] [place] [facility] (Always Message) [facility] Comment: The analytical performance characteristics of this assay, when used to test SurePath(TM) specimens have been determined by [facility]. The modifications have not been cleared or approved by the FDA. This assay has been validated pursuant to the CLIA regulations and is used for clinical purposes. For additional information, please refer to https://Makana Solutions/faq/XSP725 (This link is being provided for information/ educational purposes only.) 11/03/2022 11/06/2022 9:1 5 PM EDT Narrative [facility] - 11/09/2022 10:33 AM EDT FASTING: UNKNOWN us Marjan Sams MD LAB PATHOLOGY ORDERABLES F inal Result [facility] [address], [place] [address] [facility] [place] [facility] 200 [place] [address] * Hepatitis C Antibody with Reflex to HCV, RNA, Quantitative, Real-Time PCR (10/31/2022 8:11 AM EDT) Hepatitis C Antibody NON-REACT CHOCO NON-REACT CHOCO [facility] [place] [facility] Index 0.43 <1.00 [facility] [place] [facility] Comment: HCV antibody was non-reactive. There is no laboratory evidence of HCV infection. In most cases, no further action is required. However, if recent HCV exposure is suspected, a test for HCV RNA (test code 77060) is suggested. For additional information please refer to http://Comparabien.com.Mosaic/faq/ANK95a7 (This link is being provided for informational/ educational purposes only.) Blood Venous blood specimen / Unknown 10/31/2022 8:11 AM EDT 10/31/2022 8:11 AM EDT Narrative [facility] - 10/31/2022 9:53 PM EDT FASTING:YES FASTING: YES us Marjan Sams MD LAB BLOOD ORDERABLES Final Result [facility] [address], [place] [address] [facility] [address] [place] [address] * Hm Colonoscopy (03/30/2017 12:40 PM EDT) Historical Provider HEALTH MAINTENANCE Final Result from Last 3 Months or Most Recently Relevant to Health Maintenance Insurance [employer] MEDICARE REPLACEMENT Advance Directives Documents on File Type Date Recorded 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 Division Manager Expl anation Advance Directives and Living Will 10/01/2024 12:27 PM HEALTH CARE PROXY Care Teams Green Coffee Blender Relationship Specialty Start Date End Date Marjan Sams MD [address] [place] [address] PCP - General Family Medicine 06/04/18 Esteban Nice MD [address] [place] [address] 402 [place] [address] Rheumatology 05/21/24 Ashley Chanel OD 180 [place] [address] Optometry 05/21/24 Alban Koehler 175 [facility] 110 [place] [address] Podiatry 10/08/24 Sonja Patel MD [address] [place] [address] Hematology and Oncology 02/26/25 Jack Lyles 299 [facility] 410 [place], [place] 110 Thoracic Surgery 02/26/25 Dea Hewitt MD Rheumatology 10/06/24
--- OUTSIDE RECORDS SUMMARY | 2025-03-05 16:53 | XMS_ITS | Encounter Summary ---
Author Organization [employer] Address 75 [facility] 7t [place] [address] Care Team Providers Care Cat Skinner Name Role Phone Marjan Sams MD Primary Care Provider [phone]- [phone] Esteban Nice MD Unavailable Ashley Chanel OD Unavailable [phone] Alban Koehler Unavailable Sonja Patel MD Unavailable [phone] Jack Lyles Unavailable Reason for Visit * Reason Onset Date Comments Med Refill 02/19/2023 Encounter Details Date Type Department Care Team (Late st Contact Info) Description 02/19/2023 Telephone [facility] [address] [place] [address] Marjan Sams MD 230 [place], [place] [phone] Med Refill Social History Tobacco Use Types [...] Description 03/13/2025 9:45 AM EDT Office Visit [address] [address] Marjan Sams MD [address] [place] [address] 06/12/2025 10:30 AM EST Clinical Support [address] [address] Viridiana Hernández RN 505 [place] [address] documented as of this encounter Visit Diagnoses Not on filedocumented in this encounter Additional Health Concerns Assessment Noted Time PHQ-9 Depression Total Score: 0 11/04/19 23 10:28 AM EDT documented as of this encounter Care Teams Cat Skinner Relationship Specialty Start Date End Date Marjan Sams MD [address] [place] [address] PCP - General Family Medicine 06/04/18 Esteban Nice MD [address] [place] [address] Rheumatology 05/21/24 Ashley Chanel OD 180 [place] [address] Optometry 05/21/24 Alban Koehler [address] [address] Podiatry 10/08/24 Sonja Patel MD [address] [place] [address] Hematology and Oncology 02/26/25 Jack Lyles [address] [place] [address] Thoracic Surgery 02/26/25 Dea Hewitt MD Rheumatology 10/06/24 documented as of this encounter
--- OUTSIDE RECORDS SUMMARY | 2025-03-05 16:53 | XMS_ITS | Encounter Summary ---
Author Organization [employer] Address 75 [facility] 7t [place] [address] Care Team Providers Care Tile Molder Hand Name Role Phone Marjan Sams MD Primary Care Provider [phone]- [phone] Esteban Nice MD Unavailable Ashley Chanel OD Unavailable [phone] Alban Koehler Unavailable Sonja Patel MD Unavailable [phone] Jack Lyles Unavailable Reason for Visit * Reason Onset Date Comments Pt1 02/10/2025 Encounter Details Date Type Department Care Team (Late st Contact Info) Description 02/10/2025 Telephone [facility] [address] [place] [address] [phone] Marjan Sams MD 230 [place], [place] [phone] Pt1 Social History Tobacco Use Types Packs/Day [...] Y/N: Yes Provider name or facility name: [address] [address] [place] Escort needed: Y/N: No Do you have a wheelchair: Y/N: No If yes- Manual or electric: N/A Visits: 3 x monthly documented in this encounter Plan of Treatment Upcoming Encounters Date Type Department Care Team (Late st Contact Info) Description 03/13/2025 9:45 AM EDT Office Visit [facility] [address] [place] [address] Marjan Sams MD 230 [place] [address] 06/12/2025 10:30 AM EST Clinical Support [facility] [address] [place] [address] Viridiana Hernández, KIMBERLY 505 [place] [address] documented as of this encounter Visit Diagnoses Not on filedocumented in this encounter Additional Health Concerns Assessment Noted Time PHQ-9 Depression Total Score: 4 02/13/20 24 9:45 AM EDT documented as of this encounter Care Teams Tile Molder Hand Relationship Specialty Start Date End Date Marjan Sams MD 230 [place] [address] PCP - General Family Medicine 06/04/18 Esteban Nice MD [address] [place] [address] [phone] Rheumatology 05/21/24 Ashley Chanel OD 180 [place] [address] Optometry 05/21/24 Alban Koehler [address] [address] Podiatry 10/08/24 Sonja Patel MD [address] [place] [address] Hematology and Oncology 02/26/25 Jack Lyles [address] 110 Thoracic Surgery 02/26/25 Dea Hewitt MD Rheumatology 10/06/24 documented as of this encounter
--- OUTSIDE RECORDS SUMMARY | 2025-03-05 16:53 | XMS_ITS | Encounter Summary ---
Author Organization [employer] Address 75 [facility] 7t [place] [address] Care Team Providers Care Mirror Machine Feeder Name Role Phone Marjan Sams MD Primary Care Provider [phone]- [phone] Esteban Nice MD Unavailable Ashley Chanel OD Unavailable [phone] Alban Koehler Unavailable Sonja Patel MD Unavailable [phone] Jack Lyles Unavailable Reason for Visit * Reason Onset Date Comments Med Refill 10/17/2024 Encounter Details Date Type Department Care Team (Late st Contact Info) Description 10/17/2024 Telephone [facility] [address] [place] [address] [phone] Marjan Sams MD 230 [place], [place] [phone] Med Refill Social History Tobacco Use Types [...] MG tablet To be sent to: [facility]/pharmacy #[id number] - [place], [place] - [address] [place] [address] documented in this encounter Plan of Treatment Upcoming Encounters Date Type Department Care Team (Late st Contact Info) Description 03/13/2025 9:45 AM EDT Office Visit [facility] [address] [place] [address] Marjan Sams MD [address] [place] [address] 06/12/2025 10:30 AM EST Clinical Support [address] [address] Viridiana Hernández, KIMBERLY 505 [place] [address] documented as of this encounter Visit Diagnoses Not on filedocumented in this encounter Additional Health Concerns Assessment Noted Time PHQ-9 Depression Total Score: 4 02/13/20 24 9:45 AM EDT documented as of this encounter Care Teams Mirror Machine Feeder Relationship Specialty Start Date End Date Marjan Sams MD [address] [place] [address] PCP - General Family Medicine 06/04/18 Esteban Nice MD [address] [place] [address] Rheumatology 05/21/24 Ashley Chanel OD 180 [place] [address] Optometry 05/21/24 Alban Koehler 175 [facility] 110 [place] [address] Podiatry 10/08/24 Sonja Patel MD [address] [place] [address] Hematology and Oncology 02/26/25 Jack Lyles [address] 110 Thoracic Surgery 02/26/25 Dea Hewitt MD Rheumatology 10/06/24 documented as of this encounter
--- OUTSIDE RECORDS SUMMARY | 2025-03-05 16:53 | XMS_ITS | Encounter Summary ---
Author Organization [employer] Address 75 [facility] 7t [place] [address] Care Team Providers Care Statistical Programmer Name Role Phone Marjan Sams MD Primary Care Provider [phone]- [phone] Esteban Nice MD Unavailable Ashley Chanel OD Unavailable [phone] Alban Koehler Unavailable Sonja Patel MD Unavailable [phone] Jack Lyles Unavailable Reason for Visit * Reason Onset Date Comments Med Refill 08/20/2024 Encounter Details Date Type Department Care Team (Late st Contact Info) Description 08/20/2024 Telephone [facility] [address] [place] [address] [phone] Marjan Sams MD 230 [place], [place] [phone] Med Refill Social History Tobacco Use Types [...] 5-325 MG tablet To be sent to: [facility]/pharmacy #[id number] [place], [place] - [address] [place] [address] documented in this encounter Plan of Treatment Upcoming Encounters Date Type Department Care Team (Late st Contact Info) Description 03/13/2025 9:45 AM EDT Office Visit [facility] [address] [place] [address] Marjan Sams MD [address] [place] [address] 06/12/2025 10:30 AM EST Clinical Support [facility] 230 [place] [address] Viridiana Hernández, KIMBERLY 505 [place] [address] documented as of this encounter Visit Diagnoses Not on filedocumented in this encounter Additional Health Concerns Assessment Noted Time PHQ-9 Depression Total Score: 4 02/13/20 24 9:45 AM EDT documented as of this encounter Care Teams Statistical Programmer Relationship Specialty Start Date End Date Marjan Sams MD 230 [place] [address] PCP - General Family Medicine 06/04/18 Esteban Nice MD [address] [address] Rheumatology 05/21/24 Ashley Chanel OD 180 [place] [address] Optometry 05/21/24 Alban Koehler 175 [facility] 110 [place] [address] Podiatry 10/08/24 Sonja Patel MD [address] [place] [address] Hematology and Oncology 02/26/25 Jack Lyles 299 [facility] 410 [place], [place] 1104 Thoracic Surgery 02/26/25 Dea Hewitt MD Rheumatology 10/06/24 documented as of this encounter
--- OUTSIDE RECORDS SUMMARY | 2025-03-05 16:53 | XMS_ITS | Encounter Summary ---
Author Organization [employer] Address 75 [facility] 7t [place] [address] Care Team Providers Care Manager Farm Name Role Phone Marjan Sams MD Primary Care Provider [phone] Esteban Nice MD Unavailable Ashley Chanel OD Unavailable [phone] Alban Koehler Unavailable Sonja aPtel MD Unavailable [phone] Jack Lyles Unavailable Reason for Visit * Reason Comments Med Refill Encounter Details Date Type Department Care Team (Late st Contact Info) Description 10/19/2023 Refill [facility] 230 [place] [address] Lluvia Mendoza MD 230 [place] [address] History of DVT (deep vein thrombosis) Social [...] the past 12 months, has t he [employer], gas, oil or water company threatened to [...] Description 03/13/2025 9:45 AM EDT Office Visit [facility] [address] [place] [address] Marjan Sams MD [address] [place] [address] 06/12/2025 10:30 AM EST Clinical Support [facility] [address] [place] [address] Viridiana Hernández RN 505 [place] [address] documented as of this encounter Visit Diagnoses Diagnosis History of DVT (deep vein thrombosis) documented in this encounter Additional Health Concerns Assessment Noted Time PHQ-9 Depression Total Score: 0 11/04/19 23 10:28 AM EDT documented as of this encounter Care Teams Manager Farm Relationship Specialty Start Date End Date Marjan Sams MD [address] [place] [address] PCP - General Family Medicine 06/04/18 Esteban Nice MD [address] 402 [place] [address] Rheumatology 05/21/24 Ashley Chanel OD 180 [place] [address] Optometry 05/21/24 Alban Koehler 175 [facility] 110 [place] [address] Podiatry 10/08/24 Sonja Patel MD [address] [place] [address] Hematology and Oncology 02/26/25 Jack Lyles 299 [facility] 410 [place], [place] 110 Thoracic Surgery 02/26/25 Dea Hewitt MD Rheumatology 10/06/24 documented as of this encounter
--- OUTSIDE RECORDS SUMMARY | 2025-03-05 16:53 | XMS_ITS | Encounter Summary ---
Author Organization [employer] Address 75 [facility] 7t [place] [address] Care Team Providers Care Sound Designer Name Role Phone Marjan Sams MD Primary Care Provider [phone]- [phone] Esteban Nice MD Unavailable Ashley Chanel OD Unavailable [phone] Alban Koehler Unavailable Sonja Patel MD Unavailable Jack Lyles Unavailable Reason for Visit * Reason Comments Med Refill Encounter Details Date Type Department Care Team (Late st Contact Info) Description 02/10/2025 Refill [facility] 230 [place] [address] Marjan Sams MD 230 [place] [address] Tobacco dependence syndrome Social History Tobacco Use [...] Description 03/13/2025 9:45 AM EDT Office Visit [facility] [address] [place] [address] Marjan Sams MD [address] [place] [address] 06/12/2025 10:30 AM EST Clinical Support [facility] [address] [place] [address] Viridiana Hernández RN 505 [place] [address] documented as of this encounter Visit Diagnoses Diagnosis Tobacco dependence syndrome Tobacco use disorder documented in this encounter Additional Health Concerns Assessment Noted Time PHQ-9 Depression Total Score: 4 02/13/20 24 9:45 AM EDT documented as of this encounter Care Teams Sound Designer Relationship Specialty Start Date End Date Marjan Sams MD 230 [place] [address] PCP - General Family Medicine 06/04/18 Esteban Nice MD [address] 402 [place] [address] Rheumatology 05/21/24 Ashley Chanel OD 180 [place] [address] Optometry 05/21/24 Alban Koehler 175 [facility] 110 [place] [address] Podiatry 10/08/24 Sonja Patel MD [address] [place] [address] Hematology and Oncology 02/26/25 Jack Lyles [address] 110[address] Thoracic Surgery 02/26/25 Dea Hewitt MD Rheumatology 10/06/24 documented as of this encounter
--- OUTSIDE RECORDS SUMMARY | 2025-03-05 16:53 | XMS_ITS | Encounter Summary ---
Author Organization [employer] Address 75 [facility] 7t [place] [address] Care Team Providers Care Assembler Product Name Role Phone Marjan Sams MD Primary Care Provider [phone]- [phone] Esteban Nice MD Unavailable Ashley Chanel OD Unavailable [phone] Alban Koehler Unavailable Sonja Patel MD Unavailable [phone] Jack Lyles Unavailable Reason for Visit * Reason Comments Med Refill Encounter Details Date Type Department Care Team (Late st Contact Info) Description 07/25/2023 Refill [facility] 230 [place], [place] [phone] Marjan Sams MD 230 [place], [place] [phone] Arthritis of both knees Social History Tobacco [...] the past 12 months, has t he [employer], gas, oil or water [employer] threatened to shut off services in your [...] Description 03/13/2025 9:45 AM EDT Office Visit [facility] [address] [place] [address] Marjan Sams MD [address] [place] [address] 06/12/2025 10:30 AM EST Clinical Support [facility] [address] [place] [address] Viridiana Hernández RN 505 [place] [address] documented as of this encounter Visit Diagnoses Diagnosis Arthritis of both knees documented in this encounter Additional Health Concerns Assessment Noted Time PHQ-9 Depression Total Score: 0 11/04/19 23 10:28 AM EDT documented as of this encounter Care Teams Assembler Product Relationship Specialty Start Date End Date Marjan Sams MD [address] [place] [address] PCP - General Family Medicine 06/04/18 Esteban Nice MD [address] [place] [address] Rheumatology 05/21/24 Ashley Chanel OD 180 [place] [address] Optometry 05/21/24 Alban Koehler 175 [facility] 110 [place] [address] Podiatry 10/08/24 Sonja Patel MD 575 [place] [address] Hematology and Oncology 02/26/25 Jack Lyles 299 [facility] 410 [place], [place] 110 Thoracic Surgery 02/26/25 Dea Hewitt MD Rheumatology 10/06/24 documented as of this encounter
--- OUTSIDE RECORDS SUMMARY | 2025-03-05 16:53 | XMS_ITS | Encounter Summary ---
Author Organization [employer] Address 75 [facility] 7t [place] [address] Care Team Providers Care Data Librarian Name Role Phone Marjan Sams MD Primary Care Provider [phone] Esteban Nice MD Unavailable Ashley Chanel OD Unavailable [phone] Alban Koehler Unavailable Sonja Patel MD Unavailable [phone] Jack Lyles Unavailable Reason for Visit * Reason Onset Date Comments Uber Set-up 01/23/2024 Encounter Details Date Type Department Care Team (Late st Contact Info) Description 01/23/[address] [facility] [address] [place] [phone] Marjan Sams MD [address] [place], [place] [phone] Uber Set-up Social History Tobacco Use Types [...] request a uber set-up for 01/29 appt racebook writer did confirm address and call back number documented in this encounter Plan of Treatment Upcoming Encounters Date Type Department Care Team ([facility] st Contact Info) Description 03/13/2025 9:45 AM EDT Office Visit [facility] [address] [place] [address] Marjan Sams MD [address] [place] [address] 06/12/2025 10:30 AM EST Clinical Support [facility] [address] [place] [address] Viridiana Hernández RN 505 [place] [address] documented as of this encounter Visit Diagnoses Not on filedocumented in this encounter Additional Health Concerns Assessment Noted Time PHQ-9 Depression Total Score: 0 11/04/19 23 10:28 AM EDT documented as of this encounter Care Teams Data Librarian Relationship Specialty Start Date End Date Marjan Sams MD 230 [place] [address] PCP - General Family Medicine 06/04/18 Esteban Nice MD [address] [place] [address] Rheumatology 05/21/24 Ashley Chanel OD 180 [place] [address] Optometry 05/21/24 Alban Koehler 175 [facility] 110 [place] [address] Podiatry 10/08/24 Sonja Patel MD [address] [place] [address] Hematology and Oncology 02/26/[address] [facility] 410 [place], [place] 110[address] Thoracic Surgery 02/26/25 Dea Hewitt MD Rheumatology 10/06/24 documented as of this encounter
--- OUTSIDE RECORDS SUMMARY | 2025-03-05 16:53 | XMS_ITS | Encounter Summary ---
Author Organization [employer] Address 75 [facility] 7t [place] [address] Care Ct Scan Special Procedures Technologist Name Role Phone Marjan Sams MD Primary Care Provider [phone]- [phone] Esteban Nice MD Unavailable Ashley Chanel OD Unavailable [phone] Alban Koehler Unavailable Sonja Patel MD Unavailable [phone] Jack Lyles Unavailable Reason for Visit * Reason Onset Date Comments Nurse Triage 09/18/2023 Encounter Details Date Type Department Care Team (Late st Contact Info) Description 09/18/2023 Telephone [facility] [address] [place] [address] [phone] Marjan Sams MD 230 [place], [place] [phone] Nurse Triage Social History Tobacco Use Types [...] the past 12 months, has t he [employer], gas, oil or water [employer] threatened to shut off services in your [...] Miscellaneous Notes * Telephone Encounter - Nikki Smlal - 09/18/2023 11:29 AM EDT Symptom: Headache Outcome: Schedule a same-day appointment or talk to a nurse or provider today Reason: Caller denied all higher acuity questions The caller accepted this outcome documented in this encounter Plan of Treatment Upcoming Encounters Date Type Department Care Team (Late st Contact Info) Description 03/13/2025 9:45 AM EDT Office Visit [facility] [address] [place] [address] Marjan Sams MD [address] [place] [address] 06/12/2025 10:30 AM EST Clinical Support [facility] [address] [place] [address] Viridiana Hernández RN 505 [place] [address] documented as of this encounter Visit Diagnoses Not on filedocumented in this encounter Additional Health Concerns Assessment Noted Time PHQ-9 Depression Total Score: 0 11/04/19 23 10:28 AM EDT documented as of this encounter Care Teams Ct Scan Special Procedures Technologist Relationship Specialty Start Date End Date Marjan Sams MD 230 [place] [address] PCP - General Family Medicine 06/04/18 Esteban Nice MD [address] [place] [address] 402 [place] [address] Rheumatology 05/21/24 Ashley Chanel OD 180 [place] [address] Optometry 05/21/24 Alban Koehler 175 [facility] 110 [place] [address] Podiatry 10/08/24 Sonja Patel MD [address] [place] [address] Hematology and Oncology 02/26/25 Jack Lyles 299 [facility] 410 [place], [place] 1104 Thoracic Surgery 02/26/25 Dea Hewitt MD Rheumatology 10/06/24 documented as of this encounter
--- NOTE | 2025-03-05 17:41 | ED_ITS ---
HPI - General Adult General Chief complaint: Upper Respiratory Symptoms Stated complaint: COUGH,CP,SOB FOR DAYS PER EMS Time Seen by Provider: 03/05/25 16:34 History of Present Illness ED Provider: Yariel Cuenca MD HPI narrative: 59-year-old female with recent diagnosis in early February 2025 left lung cancer. She comes in with pleuritic pain in the left back and worsening shortness of breath. Denies leg swelling no nausea vomiting. No subjective fever. Related Data Home Medications ?Medication ?Instructions ?Recorded ?Confirmed aspirin 81 mg tablet,delayed 81 mg PO DAILY 03/19/20 0 02/25/25 release (Adult Low Dose Aspirin) fluticasone furoate 200 1 inh inhalation DAILY 03/1902/25/25 mcg-vilanterol 25 mcg/dose inhalation powder (Breo Ellipta) oxycodone-acetaminophen 5 mg-325 1 tab PO Q12H PRN Amadeo n 03/19/20 02/25/25 mg tablet (Percocet) levalbuterol HCl 1.25 mg/3 mL 1.25 mg inhalation Q4H P RN 09/13/22 02/25/25 solution for nebulization Respiratory Distress nicotine 21 mg/24 hr daily 21 patch transdermal DAILY 02/25/25 02/25/25 transdermal patch Previous Rx's ?Medication ?Instructions ?Recorded albuterol sulfate 90 mcg/actuation 1 inh inhalation QI D PRN shortness 08/13/22 aerosol inhaler of breath or wheezing #8.5 g carlos gabapentin 300 mg capsule 900 mg (3 x 300 mg) PO .COMP ZHEN 90 10/24/24 days #270 caps hydroxychloroquine 200 mg tablet See Rx Instructions P O .COMPLEX 01/14/25 #180 tabs fluticasone fur. 200 mcg-umeclid 1 inh inhalation NED Y #60 ea 02/23/25 62.5 mcg-vilant 25 mcg inhalat.powder (Trelegy Ellipta) morphine 15 mg immediate release 15 mg PO BID PRN pain #7 tabs 03/05/25 tablet Allergies Allergy/AdvReac Type Severity Reaction Status Date / Time No Known Allergies Allergy Verified 03/05/25 15:42 [facility], [facility] Past Medical History Medical History (Updated 03/06/25 @ 00:00 by Background Daemon) History of DVT (deep vein thrombosis) (~2014) Systemic lupus erythematosus (~2006) Long-term use of hydroxychloroquine Osteopenia (~2024) COPD (chronic obstructive pulmonary disease) Asthma Obstructive sleep apnea Nicotine dependence, cigarettes, uncomplicated Hyperplastic colon polyp Surgical History History of colonoscopy Family History Family History (Updated 02/25/25 @ 14:01 by Houston Pérez) Mother Breast cancer Sister Breast cancer Social History Social History Household Members: Significant Other and None Housing: Apartment Do you presently have visiting nurse or other home services: No Alcohol intake: current Alcohol intake frequency: holidays/special occasions only Alcohol type: hard liquor Patient Tobacco Use Status: Current everyday Tobacco user Tobacco use type: Cigarette Cigarette Packs Per Day: 1 Years Smoked: (onset 15yo, 1/2ppd x 44yrs, 22pyh) Second Hand Smoke Exposure: No service: No Current occupational status: disabled Physical Exam ED Exam Exam: EXAM: Gen: Alert, awake, speaking full sentences but mildly tachypneic rate about 20- 24. Head: Atraumatic Eyes: Anicteric, Normal conjunctiva. ENT: Moist mucosa, no pallor. ? Neck: Supple. Skin: ?No observable rash or bruising on exposed or examined skin Respiratory: Decreased breath sounds in the left. Tachypneic to 22-24. No wheeze Cardiovascular: Regular rate and rhythm. No murmurs or rub. Well perfused periphery, warm extremities. No edema. ? Abdominal: No focal tenderness. Soft, no objective distension. No palpable masses or obvious organomegaly. ?No guarding, no rebound tenderness or other peritoneal findings. : No flank tenderness. Neuro: Alert. Gross movement of all extremities intact. ? Psych: Calm. Cooperative. MSK: No grossly visible deformity. Vital signs: See flowsheet Vital Signs: Vital Signs - 24 hr 03/05/25 15:40 03/05/25 18:07 03/05/25 20:45 Temperature 98.1 F 98.3 F Pulse Rate 76 73 73 Respiratory Rate 18 18 18 Blood Pressure 127/66 112/79 112/79 Pulse Oximetry 95 94 94 Oxygen Delivery Method Room Air Room Air Room Air BMI result Body Mass Index 27.4 Medications Administered Discontinued Medications Generic Name Dose Route Start Last Admin Trade Name Freq PRN Reason Stop Dose Admin Ibuprofen 600 mg 03/05/25 19:21 03/05/25 19:36 Ibuprofen 600 Mg Tablet PO 03/05/25 19:22 600 mg ONCE ONE Administration Iohexol 100 ml 03/05/25 17:58 03/05/25 17:59 Iohexol 350 Mg/Ml 100 Ml Infus..Btl IV 03/05/25 17:59 65 ml ONCE ONE Administration Morphine Sulfate 15 mg 03/05/25 19:21 03/05/25 19:36 Morphine Sulfate Immed Release 15 Mg Tablet PO 03/05/25 19:22 15 mg ONCE ONE Administration Procedures Procedure Narrative Procedure Narrative: EMERGENCY ULTRASOUND INTERPRETATION-Limited Echocardiography [This study was ordered, performed, and interpreted by myself. The study reveals: Impression: NORMAL LV FUNCTION, NO RV DYSFUNCTION, NO PERICARDIAL EFFUSION] [Emergent Cardiac for Indication: Views Used: PLAX, PSSA, A4, SX, IVC Pericardial Effusion/Tamponade Findings: NONE RV Dilation (> LV diam in 4ch apical): NONE Global LV Fxn: NORMAL IVC Dilation and Resp Variation: NORMAL Performed by: MD Bang Images were stored CPT:24952] ___ EMERGENCY ULTRASOUND INTERPRETATION-Point of Care Thoracic: IMPRESSION: Dense consolidation and/or atelectasis of the left upper lobe with air bronchograms visualized. Small to moderate left pleural effusion with complexities. Indication: Dyspnea Findings: Right Pleural 2ICS: ?POSITIVE SLIDING, No B Lines or Consolidation Right PLAPS: ?No effusion Left Pleural 2ICS: POSITIVE SLIDING, atelectasis Left PLAPS: Small left effusion with complexities Performed by: Yariel Cuenca MD ? Images were stored CPT: 14495,13842,11458] Medical Decision Making Medical Decision Making MDM Narrative: Medical Decision Makin-year-old female with active lung cancer here with pleuritic left back pain worsening shortness of breath. No hypoxia. CTA performed to exclude PE. This does not reveal any acute pulmonary emboli. There is likely postobstructive atelectasis of the left upper lobe which is persistent and a small left pleural effusion this was seen as well on ultrasound. No hemodynamic instability or oxygen requirement. The patient is set for brain MRI tomorrow. No indication met for hospitalization at this time. Although she is mildly tachypneic this is acute on chronic discharged home with strict return precautions Preliminary Favored Differential Diagnosis: Biopsy complication, pneumothorax, pneumonia, pleural effusion, PE, progressing malignancy among additional considered etiologies Testing Interpreted Independently: ?See below for details Radiology or Lab testing Results Reviewed: ?See below for details Consults: ?See below for details Independent Historians/External Chart Reviews: ?See below for details Social Determinants of Health Impacting MDM/Planning: ?See below for details Lab Data MDM Lab Attestation statement: I reviewed the patient's lab results. 03/05/25 15:59 03/05/25 15:59 Labs: Lab Results 03/05/25 Range/Units 15:59 WBC 4.4 L (4.8-10.8) X10*3/uL RBC 3.14 L (4.20-5.50) X10*6/uL Hgb 8.9 L (12.0-16.0) g/dl Hct 26.8 L (37.0-47.0) % MCV 85.4 (80.0-98.0) fL MCH 28.3 (27.0-33.0) pg MCHC 33.2 (31.0-35.0) g/dl RDW 17.6 H (11.0-16.0) % Plt Count 231 (160-400) X10*3/uL MPV 8.8 L (9.4-12.3) fL Immature Gran % (Auto) 0.2 (0.0-0.4) % Neut % (Auto) 76.8 H (45-73) % Lymph % (Auto) 17.2 L (20-40) % Denali % (Auto) 5.1 (2-11) % Eos % (Auto) 0.7 (0-4) % Baso % (Auto) 0.0 (0-2) % Lymph # (Auto) 0.8 L (1.2-4.9) X10*3/uL Denali # (Auto) 0.2 (0.1-1.2) X10*3/uL Eos # (Auto) 0.0 (0.0-0.4) X10*3/uL Baso # (Auto) 0.0 (0.0-0.2) X10*3/uL Abs Immat Gran (auto) 0.01 (0.00-0.03) X10*3/uL Absolute Neuts (auto) 3.3 (2.0-8.3) x10*3/uL Absolute Nucleated RBC 0.000 (0.0-0.012) X10*3/uL Nucleated RBC % (auto) 0.0 (0.0-0.2) /100WBC Sodium 140 (135-145) mmol/L Potassium 3.4 (3.3-5.1) mmol/L Chloride 111 H (96-108) mmol/L Carbon Dioxide 22 (22-29) mmol/L Anion Gap 10 L (12-20) BUN 4 L (9-16) mg/dL Creatinine 0.66 (0.5-1.4) mg/dL Estim Creat Clear Calc 84.0 Estimated GFR > 60 Random Glucose 81 (60-115) mg/dL Calcium 8.3 L (8.4-10.2) mg/dL COVID-19 (NEHA) Negative (Negative) COVID-19 Clin Com See Note Influenza Type A (CAMILO) Negative (Negative) Influenza Type B (CAMILO) Negative (Negative) Influenza A & B Note See Note Prescription Management I considered prescription management with: Pain Medication Chronic Conditions Patient?s care impacted by: Cancer Discharge Plan Discharge Clinical Impression: Pleural effusion, Lung mass Patient Disposition: Home, Self-Care Additional Instructions: _ DISCHARGE DIAGNOSES: Lung mass which is known now with developed pleural effusion or fluid surrounding of the left lung No evidence of pulmonary embolism HISTORY OF PRESENTATION: ?Worsening shortness of breath and pain with breathing EMERGENCY DEPARTMENT COURSE,TESTS, TREATMENTS: While in the ED today you had a CT of the chest which excluded blood clot in the lung vessels. We have once again identified mass in your lung with collapsed upper lung lobe and now have seen fluid around the lung possibly causing the pain you are experiencing. You did not have low blood pressure, high heart rate, fever or low oxygen to indicate admission to the hospital. We will prescribe you pain medication DISCHARGE MEDICATIONS: ?[We have made no changes to your regular medication regimen] we have added oral morphine on for pain FOLLOW-UP: ?Call your primary or general physician soon as possible to discuss your symptoms, your ED visit and to discuss follow up plans Call your oncologist to discuss your symptoms continue with outpatient cancer workup as has been scheduled including tomorrow's MRI of your brain INSTRUCTIONS ?& RETURN PRECAUTIONS: If any symptoms change first call your primary physician, if it is after-hours your primary doctors office should have a provider retail loss prevention investigator you can speak with. If the symptoms are severe or very concerning to you then call 911 or return to the ED. Yariel Cuenca MD Emergency Physician [facility] Prescriptions: New morphine 15 mg tablet 15 mg PO BID PRN (Reason: pain) Qty: 7 0RF Rx Instructions: Partial Fill upon patient request. No Action gabapentin 300 mg capsule 900 mg PO .COMPLEX 90 Days Qty: 270 1RF Rx Instructions: 900 mg orally; take two tablets at night and 1 tablet in the morning hydroxychloroquine 200 mg tablet See Rx Instructions PO .COMPLEX Qty: 180 1RF Rx Instructions: 400 mg daily x5 days a week and 200 mg daily x2 days a week albuterol sulfate 90 mcg/actuation HFA aerosol inhaler 1 inh inhalation QID PRN (Reason: shortness of breath or wheezing) Qty: 8.5 0RF levalbuterol HCl 1.25 mg/3 mL Solution For Nebulization 1.25 mg INHALATION Q4H PRN (Reason: Respiratory Distress) nicotine 21 mg/24 hr Patch 24 Hour 21 patch transdermal DAILY oxycodone-acetaminophen [Percocet] 5-325 mg tablet 1 tab PO Q12H PRN (Reason: Pain) aspirin [Adult Low Dose Aspirin] 81 mg tablet,delayed release (DR/EC) 81 mg PO DAILY Breo Ellipta 200-25 mcg/dose blister with device 1 inh inhalation DAILY Trelegy Ellipta 200-62.5-25 mcg blister with device 1 inh inhalation DAILY Qty: 60 3RF Interventions: ED Discharge Assessment Last Done: 03/05/25 20:45 Discharge Date/Time: 03/05/25 20:45 Print Language: Uzbek
[2025-03-05] MEDS: iohexoL 350 MG/ML 100 ML INFUS..BTL IV (17:59)
[2025-03-05 18:07] VITALS: BP 112/79; PULSE 73; RESP 18; O2SAT 94
[2025-03-05] MEDS: Morphine Sulfate Immed Release 15 MG TABLET PO (19:36)
[2025-03-05 20:45] VITALS: BP 112/79; PULSE 73; RESP 18; TEMP 36.8; O2SAT 94
== END 2025-03-05 20:45 | disposition home or self-care (01) ==
PROVIDERS: Emergency Provider Emergency Medicine; PCP Family Medicine
DX: R05.9 Cough, unspecified (principal); R07.89 Other chest pain; R06.02 Shortness of breath; F17.210 Nicotine dependence, cigarettes, uncomplicated; Z79.899 Other long term (current) drug therapy; Z11.52 Encounter for screening for COVID-19
CPT/HCPCS: 71046; 71275; 80048; 85025; 87502; 87635; 99284; Q9967

== ENCOUNTER → 2025-03-05 16:50 | Outpatient (BNV) | payer MEDICARE, SELFPAY | PROVIDERS: Emergency Provider Emergency Medicine; PCP Family Medicine; Visit Provider Radiology Diagnostic Radiology | DX: J90 Pleural effusion, not elsewhere classified (principal) | CPT/HCPCS: 71046; 71275 ==

== ENCOUNTER → 2025-03-06 15:13 | Outpatient (BNV) | payer MEDICARE, SELFPAY | PROVIDERS: PCP Family Medicine; Visit Provider Radiology Diagnostic Radiology | DX: C34.92 Malignant neoplasm of unspecified part of left bronchus or lung (principal) | CPT/HCPCS: 70553 ==

== ENCOUNTER 2025-03-06 15:17 | Outpatient (REF) | payer MEDICARE, SELFPAY ==
--- NOTE | ~2025-03-06 | MR_ITS ---
EXAMINATION: MR BRAIN WITHOUT AND WITH CONTRAST CLINICAL INFORMATION: Lung CA, staging. COMPARISON: No prior. TECHNIQUE: Multiplanar, multisequence MRI of the brain was obtained before and after the intravenous administration of 7 mL Gadavist. Examination performed on a 1.5 Martha Siemens high-field unit. FINDINGS: There is no diffusion restriction. There is no intracranial hemorrhage, acute infarction, mass effect, or edema. Ventricles, sulci, and cisterns are normal in size and configuration for patient age. There is a cavum vergae. No shift of midline. No abnormal hemosiderin deposition is identified. There are a few scattered punctate foci of white matter T2 hyperintensity in the periventricular, subcortical, and hemispheric deep white matter. These foci are nonspecific but statistically most likely relate to small vessel ischemic changes. There is no abnormal intra or extra-axial enhancement after the administration of contrast. Midline structures appear normally formed. The pituitary gland appears normal. Posterior fossa structures appear normal. Cerebellar tonsils are appropriately located. Major flow voids are preserved within the skull base. The globes and orbital contents demonstrate no abnormalities. Paranasal sinuses demonstrate mild to moderate mucosal thickening in the left maxillary sinus. Sinuses are otherwise clear bilaterally. The mastoids and tympanic cavities are normally aerated. Extracranial soft tissues demonstrate no abnormalities. No suspicious bone marrow changes are evident. Atlantoaxial joint demonstrates mild to moderate degenerative changes. MR/MR head/brain wo/w con IMPRESSION: 1. No evidence of intracranial hemorrhage, acute infarction, mass effect, edema, or abnormal contrast enhancement. No evidence of metastatic disease to the brain. 2. Mild changes of small vessel ischemia. Electronically signed by: Amor Jimenez MD 03/06/2025 04:21 PM EDT
--- OUTSIDE RECORDS SUMMARY | 2025-03-06 15:21 | XMS_ITS | Encounter Summary ---
Author Organization [employer] Address 75 [facility] 7t [place] [address] Care Team Providers Care Ladle Car Operator Name Role Phone Marjan Sams MD Primary Care Provider [phone] Esteban Nice MD Unavailable Ashley Chanel OD Unavailable [phone] Alban Koehler Unavailable Sonja Patel MD Unavailable [phone] Jack Lyles Unavailable Encounter Details Date Type Department Care Team (Late st Contact Info) Description 06/29/2022 Abstract [facility] [address] [place] [address] [phone] Marjan Sams MD [address] [place] [address] [phone] Social History Tobacco Use Types Packs/Day Years [...] Description 03/13/2025 9:45 AM EDT Office Visit [facility] [address] [place] [address] [phone] Marjan Sams MD [address] [place] [address] 06/12/2025 10:30 AM EST Clinical Support [facility] [address] [place] [address] Viridiana Hernández RN [address] [place] [address] documented as of this encounter Procedures Procedure [...] on filedocumented in this encounter Care Teams Ladle Car Operator Relationship Specialty Start Date End Date Marjan Sams MD 230 [place] [address] PCP - General Family Medicine 06/04/18 Esteban Nice MD [address] [place] [address] Rheumatology 05/21/24 Ashley Chanel OD 180 [employer] [place] [address] Optometry 05/21/24 Alban Koehler [address] [address] Podiatry 10/08/24 Sonja Patel MD [address] [place] [address] Hematology and Oncology 02/26/25 Jack Lyles [address] [place] [address] Thoracic Surgery 02/26/25 Dea Hewitt MD Rheumatology 10/06/24 documented as of this encounter
--- OUTSIDE RECORDS SUMMARY | 2025-03-06 15:21 | XMS_ITS | Clinical Summary ---
Author Organization 175 [facility] Address [address] [place] [address] Phone Care Team Providers Care Senior Architect/Design Manager Name Role Phone MehrdadElizabeth soto Primary Care Provider [phone] Allergies No known active allergies Encounters Date Type Department Care Team Description 02/24/2025 8:43 AM EDT - 02/24/2025 11:59 PM EDT Hospital Encounter [facility] PET Scan [address] [place] [address] Abnormal radiologic finding of lung [...] Signed Date: 02/24/2025 12:37 ET Workstation ID: [id number] Transcribed By: Self Edit Transcribed Date: 02/24/2025 [...] Signed Date: 02/24/2025 12:37 ET Workstation ID: [id number] Transcribed By: Self Edit Transcribed Date: 02/24/2025 12:20 ET us Yann Fu MD IMG NM PROCEDURES Final Result from Last 3 Months Insurance [employer] MEDICARE ADVANTAGE MEDICAID - [place] Care Teams Senior Architect/Design Manager Relationship Specialty Start Date End Date Elizabeth Ly DO [address] [place] [address] PCP - General Family Medicine 10/02/24
--- OUTSIDE RECORDS SUMMARY | 2025-03-06 15:21 | XMS_ITS | Encounter Summary ---
Author Organization [employer] Address 75 [facility] 7t [place] [address] Care Team Providers Care Circuit Tester Name Role Phone Marjan Sams MD Primary Care Provider [phone] Esteban Nice MD Unavailable Ashley Chanel OD Unavailable [phone] Alban Koehler Unavailable Sonja Patel MD Unavailable [phone] Jack Lyles Unavailable Encounter Details Date Type Department Care Team (Late st Contact Info) Description 03/22/2023 Abstract [facility] [address] [place], [place] [phone] Marjan Sams MD 230 [place], [place] [phone] Preventative health care; Osteoarthritis of knee, unspecified [...] [facility] [address] [place] [phone] Marjan Sams MD [address] [place] [address] 06/12/2025 10:30 AM EST Clinical Support [facility] [address] [place] [address] Viridiana Hernández, KIMBERLY [address] [place] [address] documented as of this encounter Visit Diagnoses Diagnosis Preventative health care Routine general medical examination at a health care facility Osteoarthritis of knee, unspecified laterality, unspecified osteoarthritis type documented in this encounter Additional Health Concerns Assessment Noted Time PHQ-9 Depression Total Score: 0 11/04/19 23 10:28 AM EDT documented as of this encounter Care Teams Circuit Tester Relationship Specialty Start Date End Date Marjan Sams MD [address] [place] [address] PCP - General Family Medicine 06/04/18 Esteban Nice MD [address] [place] [address] Rheumatology 05/21/24 Ashely Chanel OD 180 [place] [address] Optometry 05/21/24 Alban Koehler 175 [facility] 110 [place] [address] Podiatry 10/08/24 Sonja Patel MD [address] [place] [address] Hematology and Oncology 02/26/25 Jack Lyles 299 [facility] 410 [place], [place] 110 Thoracic Surgery 02/26/25 Dea Hewitt MD Rheumatology 10/06/24 documented as of this encounter
--- OUTSIDE RECORDS SUMMARY | 2025-03-06 15:21 | XMS_ITS | Encounter Summary ---
Author Organization [employer] Address [address] [facility] 7t [place] [address] Care Team Providers Care Electric Motor Assembler And Tester Name Role Phone Marjan Sams MD Primary Care Provider [phone] Esteban Nice MD Unavailable Ashley Chanel OD Unavailable [phone] Alban Koehler Unavailable Sonja Patel MD Unavailable [phone] Jack Lyles Unavailable Reason for Visit * Reason Comments Med Refill Encounter Details Date Type Department Care Team (Late st Contact Info) Description 12/19/2024 Refill [facility] MEDICINE [address] [place] [address] Marjan Sams MD 230 [place] [address] History of DVT (deep vein thrombosis) Social [...] 03/13/2025 9:45 AM EDT Office Visit [facility] MEDICINE [address] [place] [address] Marjan Sams MD [address] [place] [address] 06/12/2025 10:30 AM EST Clinical Support [facility] MEDICINE [address] [place] [address] Viridiana Hernández RN 505 [place] [address] documented as of this encounter Visit Diagnoses Diagnosis History of DVT (deep vein thrombosis) documented in this encounter Additional Health Concerns Assessment Noted Time PHQ-9 Depression Total Score: 4 02/13/20 24 9:45 AM EDT documented as of this encounter Care Teams Electric Motor Assembler And Tester Relationship Specialty Start Date End Date Marjan Sams MD 230 [place] [address] PCP - General Family Medicine 06/04/18 Esteban Nice MD [address] [place] [address] Rheumatology 05/21/24 Ashley Chanel OD 180 [place] [address] Optometry 05/21/24 Alban Koehler 175 [facility] 110 [place] [address] Podiatry 10/08/24 Sonja Patel MD [address] [place] [address] Hematology and Oncology 02/26/[address] [facility] 410 [place], [place] 110 Thoracic Surgery 02/26/25 Dea Hewitt MD Rheumatology 10/06/24 documented as of this encounter
--- OUTSIDE RECORDS SUMMARY | 2025-03-06 15:21 | XMS_ITS | Encounter Summary ---
Author Organization [employer] Address [address] [facility] 7t [place] [address] Care Team Providers Care Automatic Screwmaker Name Role Phone Marjan Sams MD Primary Care Provider [phone] Esteban Nice MD Unavailable Ashley Chanel OD Unavailable [phone] Alban Koehler Unavailable Sonja Patel MD Unavailable [phone] Jack Lyles Unavailable Reason for Visit * Reason Comments Med Refill Encounter Details Date Type Department Care Team (Late st Contact Info) Description 10/19/2023 Refill [facility] [address] [place] [address] Lluvia Mendoza MD 230 [place] [address] History of DVT (deep vein thrombosis) Social [...] the past 12 months, has t he [employer] gas, oil or water company threatened to [...] Description 03/13/2025 9:45 AM EDT Office Visit [facility]INE [address] [place] [address] Marjan Sams MD [address] [place] [address] 06/12/2025 10:30 AM EST Clinical Support [facility] [address] [place] [address] Viridiana Hernández RN 505 [place] [address] documented as of this encounter Visit Diagnoses Diagnosis History of DVT (deep vein thrombosis) documented in this encounter Additional Health Concerns Assessment Noted Time PHQ-9 Depression Total Score: 0 11/04/19 23 10:28 AM EDT documented as of this encounter Care Teams Automatic Screwmaker Relationship Specialty Start Date End Date Marajn Sams MD [address] [place] [address] PCP - General Family Medicine 06/04/18 Esteban Nice MD [address] 402 [place] [address] Rheumatology 05/21/24 Ashley Chanel OD 180 [place] [address] Optometry 05/21/24 Alban Koehler 175 [facility] 110 [place] [address] Podiatry 10/08/24 Sonja Patel MD [address] [place] [address] Hematology and Oncology 02/26/25 Jack Lyles 299 [facility] 410 [place], [place] 110 Thoracic Surgery 02/26/25 Dea Hewitt MD Rheumatology 10/06/24 documented as of this encounter
--- OUTSIDE RECORDS SUMMARY | 2025-03-06 15:21 | XMS_ITS | Encounter Summary ---
Author Organization [employer] Address [address] [facility] [address] 7t [place] [address] Care Team Providers Care Lard Tub Washer Name Role Phone Marjan Sams MD Primary Care Provider [phone] Esteban Nice MD Unavailable Ashley Chanel OD Unavailable [phone] Alban Koehler Unavailable Sonja Patel MD Unavailable [phone] Jack Lyles Unavailable Encounter Details Date Type Department Care Team (Late st Contact Info) Description 03/05/2025 Orders Only [facility] External Provider, [facility] Social History Tobacco Use Types Packs/Day Years [...] Office Visit [facility] MEDICINE [address] [place] [address] Marjan Sams MD [address] [place] [address] 06/12/2025 10:30 AM EST Clinical Support [facility] MEDICINE [address] [place] [address] Viridaina Hernández RN 505 [place] [address] documented as of this encounter Procedures Procedure Name Priority Date/Time Associated Diagnosis Comments CTA CHEST PE PROTOCAL Routine 03/05/2025 7:58 PM EDT XR CHEST 2 VIEWS Routine 03/05/2025 4:50 PM EDT documented in this encounter Results * CTA Chest PE Protocal (03/05/2025 7:58 PM EDT) Anatomical Region Laterality Modality Body, Chest Computed Tomogra phy 03/05/2025 7:58 PM EDT Narrative 03/05/2025 8:00 PM EDT [place] [address] CT Scan Report Signed with Addenda Patient: Tammy Moeller MR#: [id number] : 1965 Acct:[id number] Age/Sex: 59 / F ADM Date: 03/05/25 Loc: .ED Attending Dr: Ordering Physician: Yariel Cuenca MD Date of Service: 03/05/25 Procedure(s): CT angio chest PE protocol Accession Number(s): [id number] cc: Marjan Sams MD; Yariel Cuenca MD Report Number: [id number]: Total DLP = 0.00 mGy-cm Reason for Exam: pleuritic pain concern for PE ADDENDUM This document has been electronically signed by: Peter Messina MD on 03/05/2025 19:58:34 ADDENDUM: Receipt of this report by the clinical staff was confirmed with Yariel Cuenca on Mar 05, 2025 20:02:00 EDT. This document has been electronically signed by: Claribel Benjamin on 03/05/2025 20:02:41 Addendum Dictated By: Peter Messina MD Addendum Signed By: <Electronically signed by Peter Messina MD in OV> 03/05/252002 Addendum Cosigned By: DD/ /29/1957 TD/TT: 03/05/2507/29/2001 CLINICAL HISTORY: pleuritic pain concern for PE CT angiography chest with contrast. 3D Postprocessing. Comparison: CT/SR - CT LUNG SCREENING - 01/23/25 11:13 EDT Findings: Cardiomegaly without significant pericardial effusion. Coronary artery calcifications. 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 Diffuse atheromatous plaque disease throughout the aorta and branch vessels, without aneurysmal dilatation. No acute pulmonary embolus. Enlarging lobulated presumed adenopathy/nona mass in the AP window, difficult to measure given morphology however best seen on coronal series 7, image 31 measuring 3.6 x 6.3 cm. Mildly prominent axillary nodes may be reactive. Masslike consolidation with complete collapse of the left upper lobe, concerning for an endobronchial mass lesion and/or disease progression from the known spiculated mass in the left upper lobe from prior. Small lobulated left pleural effusion. Atelectasis Tiny bilateral pulmonary nodules measuring no more than 3 mm. Per Fleischner criteria: Low-risk patients: No routine follow-up required. High-risk patients: Optional CT at 12 months. Nonspecific bilateral adrenal gland thickening. Splenule. Splenic capsular calcifications, nonspecific. The bones are intact. IMPRESSION: 1. No evidence of PE. 2. 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 3. Disease progression with complete collapse of the left upper lobe likely secondary to an endobronchial obstructive mass or expansion of the known left upper lobe mass. 4. Small lobulated left pleural effusion. 5. Enlarging ill-defined nona mass/adenopathy in the AP window. This document has been electronically signed by: Peter Messina MD on 03/05/2025 19:58:34 Dictated By: Peter Messina MD Signed By: <Electronically signed by Peter Messina MD in OV> 03/05/251958 DD/ 57 TD/TT: 03/05/251957 Linoleum Floor Layer: Procedure Note Donotuseinterpreter, Image - 03/05/[address] [address] [address] Scan Report Signed with Addenda Patient: Tammy Moeller#: [id number] : 1965Acct:[id number] Age/Sex: 59 / FADM Date: 03/05/25 Loc: HO.ED Attending Dr: Ordering Physician: Yariel Cuenca MD Date of Service: 03/05/25 Procedure(s): CT angio chest PE protocol Accession Number(s): [id number] cc: Marjan Sams MD; Yariel Cuenca MD Report Number: [id number]: Total DLP = 0.00 mGy-cm Reason for Exam: pleuritic pain concern for PE ADDENDUM This document has been electronically signed by: Peter Messina MD on 03/05/2025 19:58:34 ADDENDUM: Receipt of this report by the clinical staff was confirmed with Yariel Cuenca on Mar 05, 2025 20:02:00 EDT. This document has been electronically signed by: Claribel Benjamin on 03/05/2025 20:02:41 Addendum Dictated By: Peter Messina MD Addendum Signed By: <Electronically signed by Peter Messina MD in OV> 03/05/252002 Addendum Cosigned By: DD/ /29/1957 TD/TT: 03/05/2507/29/2001 CLINICAL HISTORY: pleuritic pain concern for PE CT angiography chest with contrast. 3D Postprocessing. Comparison: CT/SR - CT LUNG SCREENING - 01/23/25 11:13 EDT Findings: Cardiomegaly without significant pericardial effusion. Coronary artery calcifications. 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 Diffuse atheromatous plaque disease throughout the aorta and branch vessels, without aneurysmal dilatation. No acute pulmonary embolus. Enlarging lobulated presumed adenopathy/nona mass in the AP window, difficult to measure given morphology however best seen on coronal series 7, image 31 measuring 3.6 x 6.3 cm. Mildly prominent axillary nodes may be reactive. Masslike consolidation with complete collapse of the left upper lobe, concerning for an endobronchial mass lesion and/or disease progression from the known spiculated mass in the left upper lobe from prior. Small lobulated left pleural effusion. Atelectasis Tiny bilateral pulmonary nodules measuring no more than 3 mm. Per Fleischner criteria: Low-risk patients: No routine follow-up required. High-risk patients: Optional CT at 12 months. Nonspecific bilateral adrenal gland thickening. Splenule. Splenic capsular calcifications, nonspecific. The bones are intact. IMPRESSION: 1. No evidence of PE. 2. 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 3. Disease progression with complete collapse of the left upper lobe likely secondary to an endobronchial obstructive mass or expansion of the known left upper lobe mass. 4. Small lobulated left pleural effusion. 5. Enlarging ill-defined nona mass/adenopathy in the AP window. This document has been electronically signed by: Peter Messina MD on 03/05/2025 19:58:34 Dictated By: Peter Messina MD Signed By: <Electronically signed by Peter Messina MD in OV> 03/05/251958 DD/ 57 TD/TT: 03/05/251957 Linoleum Floor Layer: [facility] External Provider IMG CT PROCEDURES Edited Result - Final * XR Chest 2 Views (03/05/2025 4:50 PM EDT) Anatomical Region Laterality Modality Chest Radiographic Erendira ging 03/05/2025 4:5 0 PM EDT Narrative 03/05/2025 5:07 PM EDT [place] [address] XRay Report Signed Patient: Tammy Moeller MR#: [id number] : 1965 Acct:[id number] Age/Sex: 59 / F ADM Date: 03/05/25 Loc: .ED Attending Dr: Ordering Physician: Yariel Cuenca MD Date of Service: 03/05/25 Procedure(s): XR chest 2V Accession Number(s): [id number] cc: Marjan Sams MD; Yariel Cuenca MD Reason for Exam: cough, SOB EXAMINATION: XR CHEST CLINICAL INFORMATION: cough, SOB COMPARISON: 02/17/2025 TECHNIQUE: 2 views of the chest were obtained. FINDINGS: There is persistent opacity in the upper left the lung. There is groundglass density over the lower half of the left lung. Pulmonary vessels are mildly prominent. There is tenting of the left hemidiaphragm. The right lung is clear. XR/XR chest 2V IMPRESSION: Stable mass/atelectasis and left pleural effusion resulting in opacity in the upper half of the left lung. Increasing density in the aerated left lower lung could represent developing pneumonia and/or atelectasis. Electronically signed by: Cm Bass MD 03/05/2025 05:04 PM EDT RP Dictated By: Cm Bass MD Signed By: <Electronically signed by Cm Bass MD in OV> 03/05/25 1704 DD/ 49 TD/TT: 03/05/251651 Linoleum Floor Layer: Procedure Note Donotuseinterpreter, Image - 03/05/[address] [address] XRay Report Signed Patient: Tammy Moeller#: [id number] : 1965Acct:[id number] Age/Sex: 59 / FADM Date: 03/05/25 Loc: HO.ED Attending Dr: Ordering Physician: Yariel Cuenca MD Date of Service: 03/05/25 Procedure(s): XR chest 2V Accession Number(s): [id number] cc: Marjan Sams MD; Yariel Cuenca MD Reason for Exam: cough, SOB EXAMINATION: XR CHEST CLINICAL INFORMATION: cough, SOB COMPARISON: 02/17/2025 TECHNIQUE: 2 views of the chest were obtained. FINDINGS: There is persistent opacity in the upper left the lung. There is groundglass density over the lower half of the left lung. Pulmonary vessels are mildly prominent. There is tenting of the left hemidiaphragm. The right lung is clear. XR/XR chest 2V IMPRESSION: Stable mass/atelectasis and left pleural effusion resulting in opacity in the upper half of the left lung. Increasing density in the aerated left lower lung could represent developing pneumonia and/or atelectasis. Electronically signed by: mC Bass MD 03/05/2025 05:04 PM EDT RP Dictated By: Cm Bass MD Signed By: <Electronically signed by Cm Bass MD in OV> 03/05/25 1704 DD/ 1650 TD/TT: 03/05/251651 Linoleum Floor Layer: [facility] External Provider IMG XR PROCEDURES Edited Result - Final documented in this encounter Visit Diagnoses Not on filedocumented in this encounter Additional Health Concerns Assessment Noted Time PHQ-9 Depression Total Score: 4 02/13/20 24 9:45 AM EDT documented as of this encounter Care Teams Lard Tub Washer Relationship Specialty Start Date End Date Marjan Sams MD 230 [place] [address] PCP - General Family Medicine 06/04/18 Esteban Nice MD [address] [place] [address] Rheumatology 05/21/24 Ashley Chanel OD 180 [place] [address] Optometry 05/21/24 Alban Koehler 175 [facility] 110 [place] [address] Podiatry 10/08/24 Sonja Patel MD [address] [place] [address] Hematology and Oncology 02/26/25 Jack Lyles 299 [facility] 410 [place] 110[address] Thoracic Surgery 02/26/25 Dea Hewitt MD Rheumatology 10/06/24 documented as of this encounter
--- OUTSIDE RECORDS SUMMARY | 2025-03-06 15:21 | XMS_ITS | Clinical Summary ---
Author Organization [employer] Address [address] [facility] [address] [place] [address] Care Team Providers Care Traffic Controller Cable Name Role Phone Marjan Sams MD Primary Care Provider [phone] Esteban Nice MD Unavailable Ashley Chanel OD Unavailable [phone] Alban Koehler Unavailable Sonja Patel MD Unavailable [phone] Jack Lyles Unavailable Allergies No known active allergies Medications levalbuterol (Xopenex) 1.25 MG/3ML nebulizer solutionIndica tions:Mild asthma with acute exacerbation, unspecified whether persistent Use 3 ml po q 4 hours prn 300 mL 3 08/11/19 23 Active hydroxychloroq uine (Plaquenil) 200 MG tabletIndicati ons:Systemic lupus erythematosus, unspecified SLE type, unspecified organ involvement status (CMS/HCC) ([facility]) Take 200 mg by mouth 2 times daily. Per rheumatology Active naloxone (Narcan) 4 mg/0.1 mL nasal sprayIndicatio ns:Chronically on opiate therapy Administer 1 spray (4 mg) into affected nostril(s) if needed for opioid reversal. 2 each 02/13/20 24 Active Fluticasone Furoate-Vilant sugar (Breo Ellipta) 200-25 MCG/ACT aerosol powderIndicati ons:Chronic obstructive pulmonary disease, unspecified COPD type (CMS/HCC) ([facility]) Inhale 1 Inhalation. Once per day. 1 each 02/13/20 24 Active albuterol 108 (90 Base) MCG/ACT inhalerIndicat ions:Chronic obstructive pulmonary disease, unspecified COPD type (CMS/HCC) ([facility]) Take 2 puffs po q 4 hours [...] severe pain. 56 tablet 02/21/20 25 Active oxyCODONE-acet aminophen (Percocet) 5-325 MG [...] the future. PET scan scheduled tomorrow through [facility]. Reviewed PFT which revealed moderate to severe [...] -Oncology Referral placed 02/24/25 by pulmonology -start ekexscluwyu-cdmamulwb-qmuotenl 200-62.5-25 mcg (Trelegy Ellipta) 1 inh inhalation [...] studies to be ordered. PET-CT performed at [facility] on 02/24/2025 revealed complete left upper lobe [...] will be referred to Dr. Lyles at [facility] for surgical evaluation. Osteopenia of multiple sites [...] ortho placed 09/03/24 -Seen by Dr. Koehler behavior analyst at [facility] , no changes Assessment & [...] care facilitated by [facility] [place] [facility] -health care proxy: pt reports has at home 06/25/23 Assessment & Plan (10/01/2024 2:58 PM EDT): -next comprehensive annual evaluation due after 10/01/25 -eye care facilitated by [facility] in [facility] is [facility] -health care proxy: pt reports has at home 06/25/23 Assessment & Plan (06/25/2023 11:24 AM EST): -next physical exam due after 06/25/24 -eye care facilitated by [facility] in [facility] is [facility] -health care proxy: pt reports has at [...] as pharmacomtherapy, [facility] smoking cessation group, and [facility] pharmacy smoking cessation clinic Discussed USPSTF [...] as pharmacomtherapy, [facility] smoking cessation group, and [facility] pharmacy smoking cessation clinic Discussed USPSTF [...] as pharmacomtherapy, [facility] smoking cessation group, and [facility] pharmacy smoking cessation clinic Discussed USPSTF [...] oral ulcers, bilateral elbow arthritis, ++ URIAH, Mott/DEWER, ++ dsDNA, low C3) -methotrexate caused oral [...] eye exams with [facility] in [place] -note from Dr. Rodriguez 04/15/24 Discussed the [...] oral ulcers, bilateral elbow arthritis, ++ URIAH, Mott/DEWER, ++ dsDNA, low C3) -methotrexate caused oral [...] eye exams with [facility] in [place] -note from Dr. Rodriguez 04/15/24 Discussed the [...] Date Type Department Care Team Description 03/05/2025 Orders Only [facility] External Provider, [facility] 03/05/2025 Telephone [facility] MED & PEDS [address] [place] [address] Viridiana Hernández RN 02/25/2025 Orders Only [facility] [address] [place], [place] [phone] Yoseph Altamirano MD 02/23/2025 Telephone [facility] MEDICINE [address] [place] [address] [phone] Marjan Sams MD 02/20/2025 9:30 AM EDT Clinical Support [address] [phone] Viridiana Hernández, RN Chronically on opiate therapy (Primary Dx) 02/20/2025 Refill [facility] [address] [place] [address] Viridiana Hernández, RN Arthritis of both knees 02/20/2025 Travel 02/17/2025 Orders Only GENERIC EXTERNAL DATA DEPARTMENT Provider, Generic External Data 02/10/2025 Patient Outreach [facility] MEDICINE [address] [place] [phone] Marjan Sams MD Care Coordination (CH[facility] outreach for SDOH PT-1 and food needs-referral completed /) 02/10/[address] [address] Marjan Sams MD Pt1 02/10/[address] [address] Marjan Sams MD Tobacco dependence syndrome 02/05/[address] [address] Marjan Sams MD cancel appt 03/12/25 02/05/2025 Travel 02/04/[address] [address] Marjan Sams MD History of DVT (deep vein thrombosis) 01/28/2025 Results Follow-Up [address] Lung Screening Low dose 01/23/2025 Orders Only [facility] External Provider, [facility] Abnormal CT scan, lung (Primary Dx); Tobacco dependence syndrome 01/15/2025 Refill [facility] MEDICINE [address] [place] [phone] Marjan Sams MD Arthritis of both knees 12/26/[address] [address] Marjan Sams MD March Recalls 12/26/2024 Travel 12/19/[address] [address] Marjan Sams MD History of DVT (deep vein thrombosis) 12/18/2024 Refill [facility] MEDICINE [address] [place] [address] Marjan Sams MD Arthritis of both knees [...] Description 03/13/2025 9:45 AM EDT Office Visit [facility] MEDICINE [address] [place] [address] Marjan Sams MD [address] [place] [address] 06/12/2025 10:30 AM EST Clinical Support [facility] MEDICINE [address] [place] [address] Viridiana Hernández RN [address] [place] [address] Health Maintenance Due Date Last Done Comments [...] 2 VIEWS Routine 03/05/2025 4:50 PM EDT PET/CT BONE SKULL BASE TO MID THIGH [...] Recently Relevant to Health Maintenance Results * CTA Chest PE Protocal (03/05/2025 7:58 PM EDT) Anatomical Region Laterality Modality Body, Chest Computed Tomogra phy 03/05/2025 7:58 PM EDT Narrative 03/05/2025 8:00 PM EDT [address] [address] [address] Scan Report Signed with Addenda Patient: Tammy Moeller MR#: [id number] : 1965 Acct:[id number] Age/Sex: 59 / F ADM Date: 03/05/25 Loc: HO.ED Attending Dr: Ordering Physician: Yariel Cuenca MD Date of Service: 03/05/25 Procedure(s): CT angio chest PE protocol Accession Number(s): [id number] cc: Marjan Sams MD; Yariel Cuenca MD Report Number: [id number]: Total DLP = 0.00 mGy-cm Reason for [...] in OV> 03/05/251958 DD/ 57 TD/TT: 03/05/251957 Pull Socket Assembler: Procedure Note Donotuseinterpreter, Image - 03/05/[address] [place] [address] [address] Scan Report Signed with Addenda Patient: Tammy Moeller#: [id number] : 1965Acct:[id number] Age/Sex: 59 / FADM Date: 03/05/25 Loc: HO.ED Attending Dr: Ordering Physician: Yariel Cuenca MD Date of Service: 03/05/25 Procedure(s): CT angio chest PE protocol Accession Number(s): [id number] cc: Marjan Sams MD; Yariel Cuenca MD Report Number: [id number]: Total DLP = 0.00 mGy-cm Reason for [...] in OV> 03/05/251958 DD/ 57 TD/TT: 03/05/251957 Pull Socket Assembler: [facility] External Provider IMG CT PROCEDURES Edited Result - Final * XR Chest 2 Views (03/05/2025 4:50 PM EDT) Only the most recent of2 resultswithin the time period is included. Anatomical Region Laterality Modality Chest Radiographic Erendira ging 03/05/2025 4:50 PM EDT Narrative 03/05/2025 5:07 PM EDT [address] [address] XRay Report Signed Patient: Tammy Moeller MR#: [id number] : 1965 Acct:[id number] Age/Sex: 59 / F ADM Date: 03/05/25 Loc: .ED Attending Dr: Ordering Physician: Yariel Cuenca MD Date of Service: 03/05/25 Procedure(s): XR chest 2V Accession Number(s): [id number] cc: Marjan Sams MD; Yariel Cuenca MD [...] Cm Bass MD 03/05/2025 05:04 PM EDT Dictated By: Cm Bass MD Signed By: <Electronically signed by Cm Bass MD in OV> 03/05/25 1704 DD/ 49 TD/TT: 03/05/251651 Pull Socket Assembler: Procedure Note Donotuseinterpreter, Image - 03/05/[address] [address] XRay Report Signed Patient: Tammy Moeller#: [id number] : 1965Acct:[id number] Age/Sex: 59 / FADM Date: 03/05/25 Loc: HO.ED Attending Dr: Ordering Physician: Yariel Cuenca MD Date of Service: 03/05/25 Procedure(s): XR chest 2V Accession Number(s): [id number] cc: Marjan Sams MD; Yariel Cuenca MD [...] Cm Bass MD 03/05/2025 05:04 PM EDT Dictated By: Cm Bass MD Signed By: <Electronically signed by Cm Bass MD in OV> 03/05/25 1704 DD/ 49 TD/TT: 03/05/251651 Pull Socket Assembler: [facility] External Provider IMG XR PROCEDURES Edited Result - Final * PET/CT Bone Skull Base to Mid Thigh (02/24/2025 11:00 AM EDT) Anatomical Region Laterality Modality Body Computed Tomogra phy Historical Provider MD NELSON CT PROCEDURES Final [...] Unknown 02/20/2025 9:51 AM EDT Narrative Viridiana Hernández, RN - 02/20/2025 9:51 AM EDT .UTOX cup Lot#[id number] Exp. 03/10/26 Internal Pass Control Marjan Sams MD POINT OF CARE TEST ENTER/E DIT ORDERABLES Final Result * Gross and Microscopic Level 4 (02/17/2025 11:02 AM EDT) 02/17/2025 11:0 2 AM EDT 02/17/2025 2:34 PM EDT Narrative [facility] - 03/04/2025 11:50 AM EDT ----- ------- Name: Tammy Moeller Age/Sex: 59/F : 1965 Unit#: [id number] Attend Dr: Yann Fu MD Re02/17/25 Status: DEP SDC Location: [facility] Disch: ----- ------- SPEC : [id number] RECD: 02/17/25 STATUS: GELN CAMERON NUM: [id number] NICOLETTE: 02/17/[address]: Pranay Arndt MD ENTERED: 02/17/25 SP TYPE: Surgical OTHR DR: Marjan Sams MD,Yann ESPINOZA ORDERED: Gross Micro L4, IHC, Add. immunos, p40, p63, NSCLC Lung bx COMMENTS: Block A sent to [facility] for xT xR Solid Tumor/PD-L1 on 02/20/25. Addendum Addendum 2 Entered: 03/04/251141 [facility]1 expression 22C3: Positive Tumor proportion score (TPS): 2% Combined positive score (CPS): 5 Genomic variants: Biologically Relevant: RB1: p.K447* Stop gain - LOF 21.2% TP53: p.Q167* Stop gain - LOF 18.9% FUBP1: p.R37* Stop gain - LOF 17.4% KMT2D: p.D2337na Frameshift - LOF 17.4% B2M: p.P25fs Frameshift [...] icons). Addendum Signed (signature on file) Marychuy Prieto 03/04/25 1150 ----- ------- CONTINUED ON NEXT PAGE ----- ------- Name: Tammy Moeller Age/Sex: 59/F : 1965 Unit#: [id number] Attend Dr: Yann Fu MD Re02/17/25 Status: [facility] Location: [facility] Disch: ----- ------- SPEC : [id number] RECD: 02/17/25-1433 STATUS: GLEN CAMERON NUM: [id number] NICOLETTE: 02/17/25-[address] [facility] [address]: Pranay Arndt MD ENTERED: 02/17/25-9704 SP TYPE: Surgical OTHR DR: Marjan Sams MD, Andrey MD ORDERED: Gross Micro L4, IHC, Add. immunos, p40, p63, NSCLC Lung bx COMMENTS: Block A sent to [facility] for xT xR Solid Tumor/PD-L1 on 02/20/25. Addendum (Continued) Addendum 1 Entered: 02/19/25 Immunostains show the tumor is positive for p40 and p63, confirming squamous differentiation. Controls stain appropriately. Additional studies pending; report to follow. Addendum Signed (signature on file) Marychuy [place] 02/19/25 0915 ----- ------- Diagnosis Lung, left [...] Tammy Moeller Age/Sex: 59/F : 1965 Unit#: [id number] Attend Dr: Yann Fu MD Re02/17/25 Status: [facility] Location: [facility] Disch: ----- ------- SPEC : [id number] RECD: 02/17/25 STATUS: GLEN CAMERON NUM: [id number] NICOLETTE: 02/17/[address]: Pranay Arndt MD ENTERED: 02/17/25 SP TYPE: Surgical OTHR DR: Marjan Sams MD,Yann ESPINOZA ORDERED: Gross Micro L4, IHC, Add. immunos, p40, p63, NSCLC Lung bx COMMENTS: Block A sent to [facility] for xT xR Solid Tumor/PD-L1 [...] developed and their performance characteristics determined by [facility]. They have not been cleared or approved by the U.S. Food and Drug Administration (FDA). However, the FDA has determined that such clearance or approval is not necessary. This laboratory is certified under the Clinical Laboratory Improvement Amendments of 1988 (CLIA) as qualified to perform high complexity clinical laboratory testing. Copies To: Marjan Sams MD [address] [phone] Pranay Arndt MD [address] [place] [address] [phone] Yann Fu MD [facility] [address] [place] [phone] ----- ------- Signed (signature on file) Marychuy [place] 02/18/25 1615 ----- ------- END OF REPORT us Generic External Data Provider LAB CYTOLOGY RAMBO GOYAL Final Result [facility] [address] [place] [phone] * CT Biopsy Lung Left (02/17/2025 10:35 AM EDT) Anatomical Region Laterality Modality Computed Tomogra phy 02/17/2025 10:3 5 AM EDT Narrative 02/17/2025 2:46 PM EDT [address] [address] [address] Scan Report Signed Patient: Tammy Moeller MR#: [id number] : 1965 Acct:[id number] Age/Sex: 59 / F ADM Date: 02/17/25 Loc: .[facility] Attending Dr: Yann Fu MD Ordering Physician: Yann Fu MD Date of Service: 02/17/25 Procedure(s): CT biopsy lung LT Accession Number(s): [id number] cc: Marjan Sams MD; Yann Fu MD Report Number: [id number]: Total DLP = 208.00 mGy-cm Reason for [...] 02/17/25 1442 DD/ 1035 TD/TT: 02/17/25 1119 Pull Socket Assembler: JASON Procedure Note Donotuseinterpreter, Image - 02/17/[address] [address] [address] Scan Report Signed Patient: Tammy Moeller#: [id number] : 1965Acct:[id number] Age/Sex: 59 / FADM Date: 02/17/25 Loc: .[facility] Attending Dr: Yann Fu MD Ordering Physician: Yann Fu MD Date of Service: 02/17/25 Procedure(s): CT biopsy lung LT Accession Number(s): [id number] cc: Marjan Sams MD; Yann Fu MD Report Number: [id number]: Total DLP = 208.00 mGy-cm Reason for [...] 02/17/25 1442 DD/ 1035 TD/TT: 02/17/25 1119 Pull Socket Assembler: JASON [facility] External Provider IMG CT PROCEDURES Edited Result - Final * (ABNORMAL) CBC auto differential (02/17/2025 9:50 AM EDT) White Blood Count 4.6(L) 4.8 - 10.8 X10*3/uL [facility] Red Blood Count 3.45(L) 4.20 - 5.50 X10*6/uL [facility] Hemoglobin 10.1(L) 12.0 - 16.0 g/dl [facility] Hematocrit 30.4(L) 37.0 - 47.0 % [facility] Mean Corpuscular Volume 88.1 80.0 - 98.0 fL [facility] Mean Corpuscular Hemoglobin 29.3 27.0 - 33.0 pg [facility] Mean Corpuscular HGB Conc 33.2 31.0 - 35.0 g/dl [facility] Red Cell Distribution Width 18.6(H) 11.0 - 16.0 % [facility] Platelet Count 244 160 - 400 X10*3/uL [facility] Mean Platelet Volume 8.9(L) 9.4 - 12.3 fL [facility] Neutrophils Percent Auto 77.9(H) 45 - 73 % [facility] Imm Gran Pct Auto 0.2 0.0 - 0.4 % [facility] Lymphocytes Percent Auto 16.8(L) 20 - 40 % [facility] Monocytes Percent Auto 4.7 2 - 11 % [facility] Eosinophils Percent Auto 0.4 0 - 4 % [facility] Basophils Percent Auto 0.0 0 - 2 % [facility] NRBC Pct Auto 0.0 0.0 - 0.2 /100WBC [facility] Neutrophils Absolute Auto 3.6 2.0 - 8.3 x10*3/uL [facility] Imm Gran Abs Auto 0.01 0.00 - 0.03 X10*3/uL [facility] Lymphocytes Absolute Auto 0.8(L) 1.2 - 4.9 X10*3/uL [facility] Monocytes Absolute Auto 0.2 0.1 - 1.2 X10*3/uL [facility] Eosinophils Absolute Auto 0.0 0.0 - 0.4 X10*3/uL [facility] Basophils Absolute Auto 0.0 0.0 - 0.2 X10*3/uL [facility] NRBC Abs Auto 0.000 0.0 - 0.012 X10*3/uL [facility] 02/17/2025 9:50 AM EDT 02/17/2025 9:52 AM EDT us Generic External Data Provider LAB BLOOD ORDERAB LES Final Result [facility] [address] [place] [phone] * Prothrombin Time-INR (02/17/2025 9:50 AM EDT) Pathologist [facility] Prothrombin Time 11.5 10.9 - 12.4 SEC [facility] INTERNATIONAL NORM RATIO 1.0 0.9 - 1.1 [facility] Comment:INTERNATIONAL NORMAL IZED RATIO (INR) [...] Provider LAB BLOOD ORDERAB LES Final Result [facility] [address] [place] [address] [phone] * (ABNORMAL) Basic Metabolic Panel (02/17/2025 9:50 AM EDT) Pathologist [facility] Sodium 142 135 - 145 mmol/L [facility] Potassium 3.8 3.3 - 5.1 mmol/L [facility] Chloride 114(H) 96 - 108 mmol/L [facility] Carbon Dioxide 22 22 - 29 mmol/L [facility] Anion Gap 10(L) 12 - 20 [facility] Urea Nitrogen (BUN) 6(L) 9 - 16 mg/dL [facility] Creatinine, Serum 0.71 0.5 - 1.4 mg/dL [facility] Creatinine Clr Calc Pharmacy 77.6 [facility] Comment:Provided height and weight: 157.48 cm,67.2 kg.eGFR (calculated from the MDRD study equation) and eCrCl(calculated from the Cockcroft-Gault equation) are based ondifferent parameters and may not yield comparable results.If eCrCl result is absurd, please check patient'sheight/weight. Estimated Glomerular Filt Rate >60 [facility] Comment:Chronic Kidney Disea se: Estimated GFR < 60 mL/min/1.25k3Qdozaa Kidney Disease: Estimated GFR < 15 mL/min/1.73m2 Glucose 73 60 - 115 mg/dL [facility] Calcium 8.7 8.4 - 10.2 mg/dL [facility] 02/17/2025 9:50 AM EDT 02/17/2025 9:52 AM EDT us Generic External Data Provider LAB BLOOD ORDERAB LES Final Result Performing Organization Address City/State/[facility] Co de Phone Number [facility] [address] [place] [address] [phone] * CT Lung Screening Low dose (01/24/2025 7:42 PM EDT) Anatomical Region Laterality Modality Lung Computed Tomogra phy 01/24/2025 7:42 PM EDT Narrative 01/24/2025 7:43 PM EDT [place] [address] CT Scan Report Signed with Addenda Patient: Tammy Moeller MR#: [id number] : 1965 Acct:[id number] Age/Sex: 59 / F ADM Date: 01/23/25 Loc: HO.CT Attending Dr: Magdalene Peoples [employer] Ordering Physician: Awa Heredia PA-C Date of Service: 01/23/25 Procedure(s): CT lung screening Accession Number(s): [id number] cc: Marjan Sams MD; Awa Heredia PA-C Report Number: [id number]: Total DLP = 41.00 mGy-cm ADDENDUM This [...] in OV> 01/24/251942 DD/ 41 TD/TT: 01/24/251941 Pull Socket Assembler: Procedure Note Donmarieter, Image - 01/27/[address] [place] [address] [address] Scan Report Signed with Addenda Patient: Tammy Moeller#: [id number] : 1965Acct:[id number] Age/Sex: 59 / FADM Date: 01/23/25 Loc: HO.CT Attending Dr: Magdalene Peoples SUPER[employer]OR [employer]OUNDS Ordering Physician: Awa Heredia PA-C Date of Service: 01/23/25 Procedure(s): CT lung screening Accession Number(s): [id number] cc: Marjan Sams MD; Awa Heredia PA-C Report Number: [id number]: Total DLP = 41.00 mGy-cm ADDENDUM This [...] in OV> 01/24/251942 DD/ 41 TD/TT: 01/24/251941 Pull Socket Assembler: [facility] External Provider IMG CT PROCEDURES Edited Result - Final * BI Mammogram Diagnostic Tomosynthesis Bilateral (03/25/2024 2:00 PM EDT) Anatomical Region Laterality Modality Breast Bilateral Mammography 03/25/2024 2:00 PM EDT Narrative 03/25/2024 2:50 PM EDT [address] [place], [place] [address] Mammography Report Signed Patient: Tammy Moeller MR#: [id number] : 1965 Acct:[id number] Age/Sex: 58 / F ADM Date: 03/25/24 Loc: HO.MAMMO Attending Dr: Marjan Sams MD Ordering Physician: Marjan Sams MD Results: 2B enign Findings Date of Service: 03/25/24 Follow Up: 1 Year From [facility] Mammogram Procedure(s): MM tomosynthesis diagnostic BI Accession Number(s): [id number] cc: Marjan Sams MD EXAMINATION: MM DIAGNOSTIC [...] 03/25/24 1447 DD/ 1400 TD/TT: 03/25/24 1422 Pull Socket Assembler: Procedure Note Donotuseinterpreter, Image - 03/25/2024 [facility] [address] [place] [address] Mammography Report Signed Patient: Tammy Moeller#: [id number] : 1965Acct:[id number] Age/Sex: 58 / FADM Date: 03/25/24 Loc: HO.MAMMO Attending Dr: Marjan Sams MD Ordering Physician: Marjan Sams MDResults: 2B enign Findings Date of Service: 03/25/24Follow Up: 1 Year From Orig inal Mammogram Procedure(s): MM tomosynthesis diagnostic BI Accession Number(s): [id number] cc: Marjan Sams MD EXAMINATION: MM DIAGNOSTIC [...] 03/25/24 1447 DD/ 1400 TD/TT: 03/25/24 1422 Pull Socket Assembler: Marjan Sams MD IMG BI PROCEDURES Final [...] below the limit ofdetection of this assay.The [employer] Card HIV Ag/Ab Combo assay result andsupplemental assay results should be interpreted inconjunction with the patient's clinical presentation,history and other laboratory results. If the results areinconsistent with clinical evidence, additional testing issuggested to confirm the result. Blood Venous blood specimen / Unknown 02/13/2024 10:36 AM EDT 02/13/2024 11:19 AM EDT Marjan Sams MD LAB BLOOD ORDERABLES Final Result [facility] [address] [place] [phone] * (ABNORMAL) Lipid Panel, Standard (02/13/2024 10:36 AM EDT) Triglycerides 115 <150 mg/dL [facility] Comment:Desirable Triglyceri de: less than 150 mg/dLBorderline High Triglyceride 150-199 mg/dLHigh Triglyceride: 200-499 mg/dLVery High Triglyceride: greater than or equal to 5OO mg/dL Cholesterol 178 <200 mg/dL [facility] Comment:Desirable Cholestero l: less than 200 mg/dLBorderline High Cholesterol: 200-239 mg/dLHigh Cholesterol: greater than 239 mg/dL LDL Cholesterol Calculated 114(H) <100 mg/dL [facility] Comment:Desirable LDL: less than 100 mg/dLNear Optimal/Above Optimal LDL: 110- 129 mg/dLBorderline High LDL: 130-159 mg/dLHigh LDL: 160-189 mg/dLVery High LDL: greater than or equal to 190 mg/dL HDL Cholesterol 41 >40 mg/dL [facility] Comment:Desirable HDL: great er than 40 mg/dL Note: This HDL assay may give artificially low results in patients with liver disease. Blood Venous blood specimen / Unknown 02/13/2024 10:36 AM EDT 02/13/2024 11:19 AM EDT Marjan Sams MD LAB BLOOD ORDERABLES Final Result [facility] [address] [place] [phone] * Thinprep PAP, HPV mRNA E6/E7 RFX HPV 16,18/45, Chlamydia/N. Gonorrhoeae (11/03/2022 12:00 AM EDT) Clinical Information: ROUTINE [employer] [place] [employer] LMP: NONE GIVEN Dinglepharbt Prev. PAP: NONE GIVEN Dinglepharbt Prev. BX: NO [employer] SOURCE: None given [employer]pharbt Statement Of Adequacy: SATISFACTORY FOR EVALUATION [facility] Interpretation/Re sult: [employer] Comment: Negative for intraepithelial lesion or malignancy. Atrophic pattern; predominantly parabasal cells District Sales Coordinator: [employer] Comment: WXW, CT(ASCP) CT Screening Location: [address] [address] (Always Message) [employer] Comment: EXPLANATORY NOTE: The Pap is a [...] HPV nRNA E6/E7 Not Detected Not Detected [employer] Comment: Methodology: Mines Inspector-Mediated Amplification This assay detects E6/E7 viral messenger RNA (mRNA) from 14 high-risk HPV types (16,18,31,33,35,39,45,51,52,56,58,59,66,68). Cervical sources are required for HPV testing. If a vaginal source from a patient who has had a total hysterectomy with removal of cervix was submitted, please contact the testing laboratory for alternative testing options. For additional information, please refer to http://Jobs [employer] Word.[employer]/faq/BDB831y0 (This link if provided for information/ educational purposes only.) Chlamydia trachomatis RNA, TMA, Urogenital NOT DETECTED NOT DETECTED [facility] Neisseria gonorrhoeae RNA, TMA, Urogenital NOT DETECTED NOT DETECTED [facility] (Always Message) [employer] Comment: The analytical performance characteristics of this assay, when used to test SurePath(TM) specimens have been determined by [employer]. The modifications have not been cleared or approved by the FDA. This assay has been validated pursuant to the CLIA regulations and is used for clinical purposes. For additional information, please refer to https://J[employer] Word[employer]/faq/ZGN841 (This link is being provided for information/ educational purposes only.) 11/03/2022 11/06/2022 9:1 5 PM EDT Narrative [facility] - 11/09/2022 10:33 AM EDT FASTING: UNKNOWN Marjan Sams MD LAB PATHOLOGY ORDERABLES F inal Result [facility] [address], [place] [address] [facility] 200 [place] [address] * Hepatitis C Antibody with Reflex to HCV, RNA, Quantitative, Real-Time PCR (10/31/2022 8:11 AM EDT) Hepatitis C Antibody NON-REACT CHOCO NON-REACT CHOCO [employer] [place] [employer] Index 0.43 <1.00 [employer] [place] [facility] Comment: HCV antibody was non-reactive. There is no laboratory evidence of HCV infection. In most cases, no further action is required. However, if recent HCV exposure is suspected, a test for HCV RNA (test code 11592) is suggested. For additional information please refer to http://education.[employer]/faq/ANT49k3 (This link is being provided for informational/ educational purposes only.) Blood Venous blood specimen / Unknown 10/31/2022 8:11 AM EDT 10/31/2022 8:11 AM EDT Narrative [facility] - 10/31/2022 9:53 PM EDT FASTING:YES FASTING: YES Marjan Sams MD LAB BLOOD ORDERABLES Final Result [facility] [address], [place] [address] [employer] [place] [facility] 200 [place] [address] * Hm Colonoscopy (03/30/2017 12:40 PM EDT) Yoseph Provider HEALTH MAINTENANCE Final Result from Last 3 Months or Most Recently Relevant to Health Maintenance Insurance AETNA MEDICARE REPLACEMENT Advance Directives Documents on File Type Date Recorded Patient Stitch Cleaner Expl anation Advance Directives and Living Will 10/01/2024 12:27 PM HEALTH CARE PROXY Care Teams Traffic Controller Cable Relationship Specialty Start Date End Date [place], MD Marjan 230 [place] [address] PCP - General Family Medicine 06/04/18 Esteban Nice MD [address] [place] [address] Rheumatology 05/21/24 Ashley Chanel OD [address] [place] [address] Optometry 05/21/24 Alban Koehler [address] [address] Podiatry 10/08/24 Sonja Patel MD [address] [place] [address] Hematology and Oncology 02/26/25 Jack Lyles [address] [place] [address] Thoracic Surgery 02/26/25 Dea Hewitt MD Rheumatology 10/06/24
--- OUTSIDE RECORDS SUMMARY | 2025-03-06 15:21 | XMS_ITS | Encounter Summary ---
Author Organization [employer] Address 75 [facility] 7t [place] [address] Care Team Providers Care Restuarant Crew Worker Name Role Phone Marjan Sams MD Primary Care Provider +1- [phone] Esteban Nice MD Unavailable Ashley Chanel OD Unavailable [phone] Alban Koehler Unavailable Sonja Patel MD Unavailable [phone] Jack Lyles Unavailable Reason for Visit * Reason Onset Date Comments Med Refill 02/21/2024 Encounter Details Date Type Department Care Team (Late st Contact Info) Description 02/21/2024 Telephone [facility] [address] [place] [address] Marjan Sams MD 230 [place], [place] [phone] Med Refill Social History Tobacco Use Types [...] MG tablet To be sent to: [facility]/pharmacy #[id number] [place] [address] - [address] [place] [address] documented in this encounter Plan of Treatment Upcoming Encounters Date Type Department Care Team (Late st Contact Info) Description 03/13/2025 9:45 AM EDT Office Visit [facility] [address] [place] [address] [phone] Marjan Sams MD [address] [place] [address] 06/12/2025 10:30 AM EST Clinical Support [facility] 230 [place] [address] Viridiana Hernández, KIMBERLY [address] [place] [address] documented as of this encounter Visit Diagnoses Not on filedocumented in this encounter Additional Health Concerns Assessment Noted Time PHQ-9 Depression Total Score: 4 02/13/20 24 9:45 AM EDT documented as of this encounter Care Teams Restuarant Crew Worker Relationship Specialty Start Date End Date Marjan Sams MD 230 [place] [address] PCP - General Family Medicine 06/04/18 Esteban Nice MD [address] [address] Rheumatology 05/21/24 Ashley Chanel OD 180 [place] [address] Optometry 05/21/24 Alban Koehler 175 [facility] 110 [place] [address] Podiatry 10/08/24 Sonja Patel MD [address] [place] [address] Hematology and Oncology 02/26/25 Jack Lyles 299 [facility] 410 [place], [place] 110[address] Thoracic Surgery 02/26/25 Dea Hewitt MD Rheumatology 10/06/24 documented as of this encounter
--- OUTSIDE RECORDS SUMMARY | 2025-03-06 15:21 | XMS_ITS | Encounter Summary ---
Author Organization [employer] Address 75 [facility] 7t [place] [address] Care Team Providers Care Glued Wood Tester Name Role Phone Marjan Sams MD Primary Care Provider [phone]- [phone] Esteban Nice MD Unavailable Ashley Chanel OD Unavailable [phone] Alban Koehler Unavailable Sonja Patel MD Unavailable [phone] Jack Lyles Unavailable Reason for Visit * Reason Onset Date Comments Med Refill 02/19/2023 Encounter Details Date Type Department Care Team (Late st Contact Info) Description 02/19/2023 Telephone [facility] [address] [place] [address] Marjan Sams MD 230 [place], [place] [phone] Med Refill Social History Tobacco Use Types [...] Description 03/13/2025 9:45 AM EDT Office Visit [address] [address] Marjan Sams MD [address] [place] [address] 06/12/2025 10:30 AM EST Clinical Support [address] [address] Viridiana Hernández RN 505 [place] [address] documented as of this encounter Visit Diagnoses Not on filedocumented in this encounter Additional Health Concerns Assessment Noted Time PHQ-9 Depression Total Score: 0 11/04/19 23 10:28 AM EDT documented as of this encounter Care Teams Glued Wood Tester Relationship Specialty Start Date End Date Marjan Sams MD [address] [place] [address] PCP - General Family Medicine 06/04/18 Esteban Nice MD [address] [place] [address] Rheumatology 05/21/24 Ashley Chanel OD 180 [place] [address] Optometry 05/21/24 Alban Koehler [address] [address] Podiatry 10/08/24 Sonja Patel MD [address] [place] [address] Hematology and Oncology 02/26/25 Jack Lyles [address] [place] [address] Thoracic Surgery 02/26/25 Dea Hewitt MD Rheumatology 10/06/24 documented as of this encounter
--- OUTSIDE RECORDS SUMMARY | 2025-03-06 15:21 | XMS_ITS | Encounter Summary ---
Author Organization [employer] Address 75 [facility] 7t [place] [address] Care Team Providers Care Dice Spotter Name Role Phone Marjan Sams MD Primary Care Provider +1- [phone] Esteban Nice MD Unavailable Ashley Chanel OD Unavailable [phone] Alban Koehler Unavailable Sonja Patel MD Unavailable [phone] Jack Lyles Unavailable Encounter Details Date Type Department Care Team (Late st Contact Info) Description 02/25/2025 Orders Only [facility] 230 [place] [address] Provider, MD Yoseph Social History Tobacco Use [...] Description 03/13/2025 9:45 AM EDT Office Visit [facility] [address] [place] [address] Marjan Sams MD [address] [place] [address] 06/12/2025 10:30 AM EST Clinical Support [facility] [address] [place] [address] Viridiana Hernández RN 505 [place] [address] documented as of this encounter Procedures Procedure [...] documented as of this encounter Care Teams Dice Spotter Relationship Specialty Start Date End Date Marjan Sams MD 230 [place] [address] PCP - General Family Medicine 06/04/18 Esteban Nice MD [address] 402 [place] [address] Rheumatology 05/21/24 Ashley Chanel OD 180 [place] [address] Optometry 05/21/24 Alban Koehler 175 [facility] 110 [place] [address] Podiatry 10/08/24 Sonja Patel MD 575 [place] [address] Hematology and Oncology 02/26/25 Jack Lyles 299 [facility] 410 [place], [place] 1104 Thoracic Surgery 02/26/25 Dea Hewitt MD Rheumatology 10/06/24 documented as of this encounter
--- OUTSIDE RECORDS SUMMARY | 2025-03-06 15:21 | XMS_ITS | Encounter Summary ---
Author Organization [employer] Address 75 [facility] 7t [place] [address] Care Team Providers Care Meat Cutter Name Role Phone Marjan Sams MD Primary Care Provider [phone]- [phone] Esteban Nice MD Unavailable Ashley Chanel OD Unavailable [phone] Alban Koehler Unavailable Sonja Patel MD Unavailable [phone] Jack Lyles Unavailable Reason for Visit * Reason Onset Date Comments Med Refill 10/17/2024 Encounter Details Date Type Department Care Team (Late st Contact Info) Description 10/17/2024 Telephone [facility] MED[facility]INE [address] [place] [address] [phone] Marjan Sams MD 230 [place], [place] [phone] Med Refill Social History Tobacco Use Types [...] 5-325 MG tablet To be sent to: [facility]/pharmacy #[id number] - [place] - [address] [place] [address] documented in this encounter Plan of Treatment Upcoming Encounters Date Type Department Care Team (Late st Contact Info) Description 03/13/2025 9:45 AM EDT Office Visit [facility] MED[facility]INE [address] [place] [address] Marjan Sams MD [address] [place] [address] 06/12/2025 10:30 AM EST Clinical Support [address] [address] Viridiana Hernández, KIMBERLY 505 [place] [address] documented as of this encounter Visit Diagnoses Not on filedocumented in this encounter Additional Health Concerns Assessment Noted Time PHQ-9 Depression Total Score: 4 02/13/20 24 9:45 AM EDT documented as of this encounter Care Teams Meat Cutter Relationship Specialty Start Date End Date Marjan Sams MD [address] [place] [address] PCP - General Family Medicine 06/04/18 Esteban Nice MD [address] [place] [address] Rheumatology 05/21/24 Ashley Chanel OD 180 [place] [address] Optometry 05/21/24 Alban Koehler 175 [facility] 110 [place] [address] Podiatry 10/08/24 Sonja Patel MD [address] [place] [address] Hematology and Oncology 02/26/25 Jack Lyles [address] 110 Thoracic Surgery 02/26/25 Dea Hewitt MD Rheumatology 10/06/24 documented as of this encounter
--- OUTSIDE RECORDS SUMMARY | 2025-03-06 15:21 | XMS_ITS | Encounter Summary ---
Author Organization [employer] Address 75 [facility] 7t [place] [address] Care Team Providers Care Concrete Polisher Name Role Phone Marjan Sams MD Primary Care Provider [phone]- [phone] Esteban Nice MD Unavailable Ashley Chanel OD Unavailable [phone] Alban Koehler Unavailable Sonja Patel MD Unavailable [phone] Jack Lyles Unavailable Reason for Visit * Reason Onset Date Comments Med Refill 08/20/2024 Encounter Details Date Type Department Care Team (Late st Contact Info) Description 08/20/2024 Telephone [facility] [address] [place] [address] [phone] Marjan Sams MD 230 [place], [place] [phone] Med Refill Social History Tobacco Use Types [...] MG tablet To be sent to: [facility]/pharmacy #[id number] [place], [place] - [address] [place] [address] documented in this encounter Plan of Treatment Upcoming Encounters Date Type Department Care Team (Late st Contact Info) Description 03/13/2025 9:45 AM EDT Office Visit [facility] [address] [place] [address] Marjan Sams MD [address] [place] [address] 06/12/2025 10:30 AM EST Clinical Support [facility] 230 [place] [address] Viridiana Hernández, KIMBERLY 505 [place] [address] documented as of this encounter Visit Diagnoses Not on filedocumented in this encounter Additional Health Concerns Assessment Noted Time PHQ-9 Depression Total Score: 4 02/13/20 24 9:45 AM EDT documented as of this encounter Care Teams Concrete Polisher Relationship Specialty Start Date End Date Marjan Sams MD 230 [place] [address] PCP - General Family Medicine 06/04/18 Esteban Nice MD [address] [address] Rheumatology 05/21/24 Ashley Chanel OD 180 [place] [address] Optometry 05/21/24 Alban Koehler 175 [facility] 110 [place] [address] Podiatry 10/08/24 Sonja Patel MD [address] [place] [address] Hematology and Oncology 02/26/25 Jack Lyles 299 [facility] 410 [place], [place] 1104 Thoracic Surgery 02/26/25 Dea Hewitt MD Rheumatology 10/06/24 documented as of this encounter
--- OUTSIDE RECORDS SUMMARY | 2025-03-06 15:21 | XMS_ITS | Encounter Summary ---
Author Organization [employer] Address 75 [facility] 7t [place] [address] Care Team Providers Care Distribution Dispatcher Name Role Phone Marjan Sams MD Primary Care Provider [phone]- [phone] Esteban Nice MD Unavailable Ashley Chanel OD Unavailable [phone] Alban Koehler Unavailable Sonja Patel MD Unavailable [phone] Jack Lyles Unavailable Reason for Visit * Reason Onset Date Comments Med Refill 01/19/2023 Encounter Details Date Type Department Care Team (Late st Contact Info) Description 01/19/2023 Telephone [facility] [address] [place] [address] Marjan Sams MD 230 [place], [place] [phone] Med Refill Social History Tobacco Use Types [...] (Percocet) 5-325 MG tablet Please sent to [facility]/pharmacy #[id number] - [place] - [address] [facility] documented in this encounter Plan of Treatment Upcoming Encounters Date Type Department Care Team (Late st Contact Info) Description 03/13/2025 9:45 AM EDT Office Visit [address] [address] Marjan Sams MD [address] [place] [address] 06/12/2025 10:30 AM EST Clinical Support [address] [address] Viridiana Hernández, RN 505 [place] [address] documented as of this encounter Visit Diagnoses Not on filedocumented in this encounter Additional Health Concerns Assessment Noted Time PHQ-9 Depression Total Score: 0 11/04/19 23 10:28 AM EDT documented as of this encounter Care Teams Distribution Dispatcher Relationship Specialty Start Date End Date Marjan Sams MD 230 [place] [address] PCP - General Family Medicine 06/04/18 Esteban Nice MD [address] [place] [address] Rheumatology 05/21/24 Ashley Chanel OD 180 [place] [address] Optometry 05/21/24 Alban Koehler [address] [address] Podiatry 10/08/24 Sonja Patel MD 575 [place] [address] Hematology and Oncology 02/26/25 Jack Lyles 299 [facility] 410 [place], [place] 9[address] Thoracic Surgery 02/26/25 Dea Hewitt MD Rheumatology 10/06/24 documented as of this encounter
--- OUTSIDE RECORDS SUMMARY | 2025-03-06 15:21 | XMS_ITS | Encounter Summary ---
Author Organization [employer] Address 75 [facility] 7t [place] [address] Care Team Providers Care P D Driver Name Role Phone Marjan Sams MD Primary Care Provider [phone]- [phone] Esteban Nice MD Unavailable Ashley Chanel OD Unavailable [phone] Alban Koehler Unavailable Sonja Patel MD Unavailable [phone] Jack Lyles Unavailable Reason for Visit * Reason Onset Date Comments Med Refill 10/20/2024 Encounter Details Date Type Department Care Team (Late st Contact Info) Description 10/20/2024 Refill [facility] 505 [place], [place] [phone] Marjan Sams MD [address] [place] [address] Arthritis of both knees Social History Tobacco [...] Description 03/13/2025 9:45 AM EDT Office Visit [facility] [address] [place] [address] Marjan Sams MD [address] [place] [address] 06/12/2025 10:30 AM EST Clinical Support [facility] [address] [place] [address] Viridiana Hernández RN 505 [place] [address] documented as of this encounter Visit Diagnoses Diagnosis Arthritis of both knees documented in this encounter Additional Health Concerns Assessment Noted Time PHQ-9 Depression Total Score: 4 02/13/20 24 9:45 AM EDT documented as of this encounter Care Teams P D Driver Relationship Specialty Start Date End Date Marjan Sams MD 230 [place] [address] PCP - General Family Medicine 06/04/18 Esteban Nice MD [address] [place] [address] 402 [place] [address] Rheumatology 05/21/24 Ashley Chanel OD 180 [place] [address] Optometry 05/21/24 Alban Koehler 175 [facility] 110 [place] [address] Podiatry 10/08/24 Sonja Patel MD [address] [place] [address] Hematology and Oncology 02/26/25 Jack Lyles 299 [facility] 410 [place], [place] 110 Thoracic Surgery 02/26/25 Dea Hewitt MD Rheumatology 10/06/24 documented as of this encounter
--- OUTSIDE RECORDS SUMMARY | 2025-03-06 15:21 | XMS_ITS | Encounter Summary ---
Author Organization [employer] Address 75 [facility] 7t [place] [address] Care Team Providers Care Statistical Programmer Name Role Phone Marjan Sams MD Primary Care Provider [phone]- [phone] Esteban Nice MD Unavailable Ashley Chanel OD Unavailable [phone] Alban Koehler Unavailable Sonja Patel MD Unavailable [phone] Jack Lyles Unavailable Reason for Visit * Reason Onset Date Comments Call Back Request 10/14/2024 Encounter Details Date Type Department Care Team (Late st Contact Info) Description 10/14/2024 Telephone [facility] [address] [place] [address] Marjan Sams MD 230 [place] [address] Call Back Request (/) Social History Tobacco [...] 12:[address] [facility] Centralized scheduling who said that the pt has a DEXA scan scheduled for 10/29/24 but noultrasounds today or otherwise. Nothing noted in chart. Called pt and informed her of this, pt unaware of US ordered by specialist. Advised her if anything else comes up regarding this will let her know. Pt verbalized understanding. Chinese Language Professor found note in chart from xray of the spine ordered by Dr Koehler (podiatry) that recommended follow up Vascular US abdominal aorta aneurysm (AAA) screening. Called pt back to advise of this and gave her phone number to call to clarify with Dr Koehler and to reschedule. [phone] . Pt verbalized understanding, to call that [...] Description 03/13/2025 9:45 AM EDT Office Visit [facility] [address] [place] [address] Marjan Sams MD [address] [place] [address] 06/12/2025 10:30 AM EST Clinical Support [address] [address] Viridiana Hernández RN 505 [place] [address] documented as of this encounter Visit Diagnoses Not on filedocumented in this encounter Additional Health Concerns Assessment Noted Time PHQ-9 Depression Total Score: 4 02/13/20 24 9:45 AM EDT documented as of this encounter Care Teams Statistical Programmer Relationship Specialty Start Date End Date Marjan Sams MD [address] [place] [address] PCP - General Family Medicine 06/04/18 Esteban Nice MD [address] [place] [address] Rheumatology 05/21/24 Ashley Chanel OD 180 [place] [address] Optometry 05/21/24 Alban Koehler 175 [facility] 110 [place] [address] Podiatry 10/08/24 Sonja Patel MD [address] [place] [address] Hematology and Oncology 02/26/25 Jack Lyles 299 [facility] 410 [place], [place] 1104 Thoracic Surgery 02/26/25 Dea Hewitt MD Rheumatology 10/06/24 documented as of this encounter
--- OUTSIDE RECORDS SUMMARY | 2025-03-06 15:21 | XMS_ITS | Encounter Summary ---
Author Organization [employer] Address 75 [facility] 7t [place] [address] Care Team Providers Care Script Writer Name Role Phone Marjan Sams MD Primary Care Provider [phone]- [phone] Esteban Nice MD Unavailable Ashley Chanel OD Unavailable [phone] Alban Koehler Unavailable Sonja Patel MD Unavailable [phone] Jack Lyles Unavailable Reason for Visit * Reason Onset Date Comments PT1 10/09/2024 Encounter Details Date Type Department Care Team (Late st Contact Info) Description 10/09/2024 Telephone [facility] MED[facility]INE [address] [place] [address] [phone] Marjan Sams MD 230 [place], [place] [phone] PT1 Social History Tobacco Use Types Packs/Day [...] Y/N: Yes Provider name or facility name: [address] [place] [address] Escort needed: Y/N: No Do you have a wheelchair: Y/N: No If yes- Manual or electric: N/A Visits: (2x monthly) documented in this encounter Plan of Treatment Upcoming Encounters Date Type Department Care Team (Late st Contact Info) Description 03/13/2025 9:45 AM EDT Office Visit [facility] [address] [place] [address] Marjan Sams MD 230 [place] [address] 06/12/2025 10:30 AM EST Clinical Support [facility] [address] [place] [address] Viridiana Hernández, KIMBERLY 505 [place] [address] documented as of this encounter Visit Diagnoses Not on filedocumented in this encounter Additional Health Concerns Assessment Noted Time PHQ-9 Depression Total Score: 4 02/13/20 24 9:45 AM EDT documented as of this encounter Care Teams Script Writer Relationship Specialty Start Date End Date Marjan Sams MD [address] [place] [address] PCP - General Family Medicine 06/04/18 Esteban Nice MD [address] [place] [address] [phone] Rheumatology 05/21/24 Ashley Chanel OD 180 [place] [address] Optometry 05/21/24 Alban Koehler 175 [facility] 110 [place] [address] Podiatry 10/08/24 Sonja aPtel MD [address] [place] [address] Hematology and Oncology 02/26/25 Jack Lyles [address] 110 Thoracic Surgery 02/26/25 Dea Hewitt MD Rheumatology 10/06/24 documented as of this encounter
--- OUTSIDE RECORDS SUMMARY | 2025-03-06 15:21 | XMS_ITS | Encounter Summary ---
Author Organization [employer] Address [address] [facility] [address] 7t [place] [address] Care Team Providers Care Batch Room Technician Name Role Phone Marjan Sams MD Primary Care Provider [phone] Esteban Nice MD Unavailable Ashley Chanel OD Unavailable Alban Koehler Unavailable Sonja Patel MD Unavailable [phone] Jack Lyles Unavailable Encounter Details Date Type Department Care Team (Late st Contact Info) Description 03/05/2025 Telephone [facility] MED & PEDS 505 [place], [place] [phone] Viridiana Hernández, RN 505 [place], [place] [phone] Social History Tobacco Use Types Packs/Day Years [...] PM EDT TC to pt to r/s call or contact centre operator appointment. Appointment on 06/05/25 was scheduled in error, [facility] closed that thatfor a holiday. Appointment r/s to 06/12/25 @ 10:30am. documented in this encounter Plan of Treatment Upcoming Encounters Date Type Department Care Team (Late st Contact Info) Description 03/13/2025 9:45 AM EDT Office Visit [facility] MEDICINE [address] [place] [address] Marjan Sams MD 230 [place] [address] 06/12/2025 10:30 AM EST Clinical Support [facility] MEDICINE 230 [place] [address] Viridiana Hernández, RN 505 [place] [address] documented as of this encounter Visit Diagnoses Not on filedocumented in this encounter Additional Health Concerns Assessment Noted Time PHQ-9 Depression Total Score: 4 02/13/20 24 9:45 AM EDT documented as of this encounter Care Teams Batch Room Technician Relationship Specialty Start Date End Date Marjan Sasm MD 230 [place] [address] PCP - General Family Medicine 06/04/18 Esteban Nice MD [address] [place] [address] Rheumatology 05/21/24 Ashley Chanel OD 180 [place] [address] Optometry 05/21/24 Alban Koehler 175 [facility] 110 [place] [address] Podiatry 10/08/24 Sonja Patel MD 575 [place] [address] Hematology and Oncology 02/26/25 Jack Lyles [address] 1104 Thoracic Surgery 02/26/25 Dea Hewitt MD Rheumatology 10/06/24 documented as of this encounter
--- OUTSIDE RECORDS SUMMARY | 2025-03-06 15:21 | XMS_ITS | Encounter Summary ---
Author Organization [employer] Address 75 [facility] 7t [place] [address] Care Team Providers Care Heater Furnace Name Role Phone Marjan Sams MD Primary Care Provider [phone] Esteban Nice MD Unavailable Ashley Chanel OD Unavailable [phone] Alban Koehler Unavailable Sonja Patel MD Unavailable [phone] Jack Lyles Unavailable Reason for Visit * Reason Onset Date Comments Uber Set-up 01/23/2024 Encounter Details Date Type Department Care Team (Late st Contact Info) Description 01/23/2024 Telephone [facility] MEDICINE [address] [place] [address] Marjan Sams MD 230 [place], [place] [phone] Uber Set-up Social History Tobacco Use Types [...] request a uber set-up for 01/29 appt leader writer did confirm address and call back number documented in this encounter Plan of Treatment Upcoming Encounters Date Type Department Care Team ([facility] st Contact Info) Description 03/13/2025 9:45 AM EDT Office Visit [facility] MEDICINE [address] [place] [address] Marjan Sams MD [address] [place] [address] 06/12/2025 10:30 AM EST Clinical Support [facility] MEDICINE [address] [place] [address] Viridiana Hernández RN 505 [place] [address] documented as of this encounter Visit Diagnoses Not on filedocumented in this encounter Additional Health Concerns Assessment Noted Time PHQ-9 Depression Total Score: 0 11/04/19 23 10:28 AM EDT documented as of this encounter Care Teams Heater Furnace Relationship Specialty Start Date End Date Marjan Sams MD 230 [place] [address] PCP - General Family Medicine 06/04/18 Esteban Nice MD [address] 402 [place] [address] Rheumatology 05/21/24 Ashley Chanel OD 180 [place] [address] Optometry 05/21/24 Alban Koehler 175 [facility] 110 [place] [address] Podiatry 10/08/24 Sonja Patel MD [address] [place] [address] Hematology and Oncology 02/26/25 Jack Lyles [address] [facility] 410 [place], [place] 1104 Thoracic Surgery 02/26/25 Dea Hewitt MD Rheumatology 10/06/24 documented as of this encounter
--- OUTSIDE RECORDS SUMMARY | 2025-03-06 15:21 | XMS_ITS | Encounter Summary ---
Author Organization [employer] Address 75 [facility] 7t [place] [address] Care Team Providers Care Clutch Assembler Name Role Phone Marjan Sams MD Primary Care Provider [phone]- [phone] Esteban Nice MD Unavailable Ashley Chanel OD Unavailable [phone] Alban Koehler Unavailable Sonja Patel MD Unavailable [phone] Jack Lyles Unavailable Reason for Visit * Reason Onset Date Comments Pt1 02/10/2025 Encounter Details Date Type Department Care Team (Late st Contact Info) Description 02/10/2025 Telephone [facility] MEDICINE [address] [place] [address] [phone] Marjan Sams MD 230 [place], [place] [phone] Pt1 Social History Tobacco Use Types Packs/Day [...] Y/N: Yes Provider name or facility name: [address] [address] [facility] Escort needed: Y/N: No Do you have a wheelchair: Y/N: No If yes- Manual or electric: N/A Visits: 3 x monthly documented in this encounter Plan of Treatment Upcoming Encounters Date Type Department Care Team (Late st Contact Info) Description 03/13/2025 9:45 AM EDT Office Visit [facility] MEDICINE [address] [place] [address] Marjan Sams MD 230 [place] [address] 06/12/2025 10:30 AM EST Clinical Support [facility] MEDICINE [address] [place] [address] Viridiana Hernández, KIMBERLY 505 [place] [address] documented as of this encounter Visit Diagnoses Not on filedocumented in this encounter Additional Health Concerns Assessment Noted Time PHQ-9 Depression Total Score: 4 02/13/20 24 9:45 AM EDT documented as of this encounter Care Teams Clutch Assembler Relationship Specialty Start Date End Date Marjan Sams MD 230 [place] [address] PCP - General Family Medicine 06/04/18 Esteban Nice MD [address] [place] [address] [phone] Rheumatology 05/21/24 Ashley Chanel OD 180 [place] [address] Optometry 05/21/24 Alban Koehler [address] [address] Podiatry 10/08/24 Sonja Patel MD [address] [place] [address] Hematology and Oncology 02/26/25 Jack Lyles [address] 110 Thoracic Surgery 02/26/25 Dea Hewitt MD Rheumatology 10/06/24 documented as of this encounter
--- OUTSIDE RECORDS SUMMARY | 2025-03-06 15:21 | XMS_ITS | Encounter Summary ---
Author Organization [employer] Address 75 [facility] 7t [place] [address] Care Team Providers Care Alumni Relations Coordinator Name Role Phone Marjan Sams MD Primary Care Provider [phone] Esteban Nice MD Unavailable Ashley Chanel OD Unavailable [phone] Alban Koehler Unavailable Sonja Patel MD Unavailable [phone] Jack Lyles Unavailable Reason for Visit * Reason Onset Date Comments Nurse Triage 09/18/2023 Encounter Details Date Type Department Care Team (Late st Contact Info) Description 09/18/2023 Telephone [facility] [address] [place] [address] [phone] Marjan Sams MD 230 [place], [place] [phone] Nurse Triage Social History Tobacco Use Types [...] the past 12 months, has t he [employer], gas, oil or water [employer] threatened to shut off services in your [...] 03/13/2025 9:45 AM EDT [facility] [address] [place] [address] Marjan Sams MD [address] [place] [address] 06/12/2025 10:30 AM EST Clinical Support [facility] [address] [place] [address] Viridiana Hernández RN 505 [place] [address] documented as of this encounter Visit Diagnoses Not on filedocumented in this encounter Additional Health Concerns Assessment Noted Time PHQ-9 Depression Total Score: 0 11/04/19 23 10:28 AM EDT documented as of this encounter Care Teams Alumni Relations Coordinator Relationship Specialty Start Date End Date Marjan Sams MD 230 [place] [address] PCP - General Family Medicine 06/04/18 Esteban Nice MD [address] [place] [address] 402 [place] [address] Rheumatology 05/21/24 Ashley Chanel OD 180 [place] [address] Optometry 05/21/24 Alban Koehler 175 [facility] 110 [place] [address] Podiatry 10/08/24 Sonja Patel MD [address] [place] [address] Hematology and Oncology 02/26/25 Jack Lyles 299 [facility] 410 [place], [place] 1104 Thoracic Surgery 02/26/25 Dea Hewitt MD Rheumatology 10/06/24 documented as of this encounter
--- OUTSIDE RECORDS SUMMARY | 2025-03-06 15:21 | XMS_ITS | Encounter Summary ---
Author Organization [employer] Address 75 [facility] 7t [place] [address] Care Team Providers Care Manga Artist Name Role Phone Marjan Sams MD Primary Care Provider [phone] Esetban Nice MD Unavailable Ashley Chanel OD Unavailable [phone] Alban Koehler Unavailable Sonja Patel MD Unavailable [phone] Jack Lyles Unavailable Reason for Visit * Reason Comments Med Refill Encounter Details Date Type Department Care Team (Late st Contact Info) Description 02/10/2025 Refill [facility] MEDICINE 230 [place] [address] Marjan Sams MD 230 [place] [address] Tobacco dependence syndrome Social History Tobacco Use [...] Description 03/13/2025 9:45 AM EDT Office Visit [facility] MEDICINE [address] [place] [address] Marjan Sams MD [address] [place] [address] 06/12/2025 10:30 AM EST Clinical Support [facility] MEDICINE [address] [place] [address] Viridiana Hernández RN 505 [place] [address] documented as of this encounter Visit Diagnoses Diagnosis Tobacco dependence syndrome Tobacco use disorder documented in this encounter Additional Health Concerns Assessment Noted Time PHQ-9 Depression Total Score: 4 02/13/20 24 9:45 AM EDT documented as of this encounter Care Teams Manga Artist Relationship Specialty Start Date End Date Marjan Sams MD 230 [place] [address] PCP - General Family Medicine 06/04/18 Esteban Nice MD [address] 402 [place] [address] Rheumatology 05/21/24 Ashley Chanel OD 180 [place] [address] Optometry 05/21/24 Alban Koehler 175 [facility] 110 [place] [address] Podiatry 10/08/24 Sonja Patel MD [address] [place] [address] Hematology and Oncology 02/26/25 Jack Lyles [address] 1104 Thoracic Surgery 02/26/25 Dea Hewitt MD Rheumatology 10/06/24 documented as of this encounter
--- OUTSIDE RECORDS SUMMARY | 2025-03-06 15:21 | XMS_ITS | Encounter Summary ---
Author Organization [employer] Address 75 [facility] 7t [place] [address] Care Team Providers Care Metal Coater Name Role Phone Marjan Sams MD Primary Care Provider [phone] Esteban Nice MD Unavailable Ashley Chanel OD Unavailable [phone] Alban Koehler Unavailable Sonja Patel MD Unavailable [phone] Jack Lyles Unavailable Reason for Visit * Reason Onset Date Comments Med Refill 01/21/2024 Encounter Details Date Type Department Care Team (Late st Contact Info) Description 01/21/2024 Telephone [facility] MEDICINE [address] [place] [address] [phone] Marjan Sams MD 230 [place], [place] [phone] Med Refill Social History Tobacco Use Types [...] the past 12 months, has t he [employer], gas, oil or water company threatened to [...] tablet To be sent to: [facility] documented in this encounter Plan of Treatment Upcoming Encounters Date Type Department Care Team (Late st Contact Info) Description 03/13/2025 9:45 AM EDT Office Visit [facility] MEDICINE [address] [place] [address] Marjan Sams MD 230 [place] [address] 06/12/2025 10:30 AM EST Clinical Support [facility] MEDICINE [address] [place] [address] Viridiana Hernández RN 505 [place] [address] documented as of this encounter Visit Diagnoses Not on filedocumented in this encounter Additional Health Concerns Assessment Noted Time PHQ-9 Depression Total Score: 0 11/04/19 23 10:28 AM EDT documented as of this encounter Care Teams Metal Coater Relationship Specialty Start Date End Date Marjan Sams MD 230 [place] [address] PCP - General Family Medicine 06/04/18 Esteban Nice MD [address] [place] [address] 402 [place] [address] Rheumatology 05/21/24 Ashley Chanel OD 180 [place] [address] Optometry 05/21/24 Alban Koehler 175 [facility] 110 [place] [address] Podiatry 10/08/24 Sonja Patel MD [address] [place] [address] Hematology and Oncology 02/26/25 Jack Lyles 299 [facility] 410 [place], [place] 1104 Thoracic Surgery 02/26/25 Dea Hewitt MD Rheumatology 10/06/24 documented as of this encounter
--- OUTSIDE RECORDS SUMMARY | 2025-03-06 15:21 | XMS_ITS | Encounter Summary ---
Author Organization [employer] Address 75 [facility] 7t [place] [address] Care Team Providers Care Terrazzo Layer Helper Name Role Phone Marjan Sams MD Primary Care Provider [phone] Esteban Nice MD Unavailable Ashley Chanel OD Unavailable [phone] Alban Koehler Unavailable Sonja Paetl MD Unavailable [phone] Jack Lyles Unavailable Reason for Visit * Reason Comments Med Refill Encounter Details Date Type Department Care Team (Late st Contact Info) Description 07/25/2023 Refill [facility] MEDICINE 230 [place], [place] [phone] Marjan Sams MD 230 [place], [place] [phone] Arthritis of both knees Social History Tobacco [...] the past 12 months, has t he [employer], gas, oil or water [employer] threatened to shut off services in [...] 03/13/2025 9:45 AM EDT Office Visit [facility] MEDICINE [address] [place] [address] Marjan Sams MD [address] [place] [address] 06/12/2025 10:30 AM EST Clinical Support [facility] MEDICINE [address] [place] [address] Viridiana Hernández RN 505 [place] [address] documented as of this encounter Visit Diagnoses Diagnosis Arthritis of both knees documented in this encounter Additional Health Concerns Assessment Noted Time PHQ-9 Depression Total Score: 0 11/04/19 23 10:28 AM EDT documented as of this encounter Care Teams Terrazzo Layer Helper Relationship Specialty Start Date End Date Marjan Sams MD [address] [place] [address] PCP - General Family Medicine 06/04/18 Esteban Nice MD [address] [place] [address] Rheumatology 05/21/24 Ashley Chanel OD 180 [place] [address] Optometry 05/21/24 Alban Koehler 175 [facility] 110 [place] [address] Podiatry 10/08/24 Sonja Patel MD 575 [place] [address] Hematology and Oncology 02/26/25 Jack Lyles 299 [facility] 410 [place], [place] 110 Thoracic Surgery 02/26/25 Dea Hewitt MD Rheumatology 10/06/24 documented as of this encounter
== END 2025-03-06 15:18 | disposition home or self-care (01) ==
LOC: HO.MRI 15:17
PROVIDERS: PCP Family Medicine; Visit Provider Internal Medicine
DX: C34.92 Malignant neoplasm of unspecified part of left bronchus or lung (principal)
CPT/HCPCS: 70553; A9585

== ENCOUNTER 2025-03-19 17:11 | Emergency (ER) | payer MEDICARE, SELFPAY ==
--- NOTE | ~2025-03-19 | XR_ITS ---
CLINICAL HISTORY: dyspnea 1 view chest x-ray Comparison: CR/SR - XR CHEST 2 VIEWS - 03/05/25 16:56 EDT Findings: Blunting of the left costophrenic angle with decreased left lung volume. The right lung is well ventilated with blunting of the right costophrenic angle. The cardiac silhouette is ill-defined. No pneumothorax identified. Normal size heart. No acute fracture. Moderate calcified atherosclerotic disease of the aortic arch. IMPRESSION: 1. Moderate left and minimal right pleural effusions. 2. Small right pleural effusion. This document has been electronically signed by: Conor Freeman MD on 03/19/2025 18:17:05
[2025-03-19 17:30] VITALS: BP 117/87; PULSE 96; RESP 30; TEMP 36.8; O2SAT 96; BMI 26.3
--- NOTE | 2025-03-19 17:48 | ED.GENADULT ---
HPI - General Adult General Chief complaint: Allergic Reaction Stated complaint: Allergic reaction to Chemo meds Time Seen by Provider: 03/19/25 17:25 History of Present Illness ED Provider: Yariel Cuenca MD HPI narrative: 59-year-old female sent from oncology infusion center after recent diagnosis of lung cancer and initiation of chemotherapy today including paclitaxel she may have got another infusions but we did not get report of what those were. There was about 2 episodes throughout the day where she felt as if she was coming down with some type of reaction including diaphoresis mild distress hypertension infusion was stopped and then restarted per EMS in the patient's report. She did later in the day walked to the bathroom come back to the bed was very dyspneic she reports this has been how she has been at home especially at night or later in the day for the past several weeks she did not have any chest pain. Staff was worried about her respiratory status and sent her to the ED for evaluation. The patient denies hemoptysis leg edema. She does have some discomfort of the left side of the chest but it is unchanged since the diagnosis of cancer denies fever. When she rests after mild exertion she has her breathing improved and she feels that way this time Related Data Home Medications ?Medication ?Instructions ?Recorded ?Confirmed aspirin 81 mg tablet,delayed 81 mg PO DAILY 03/19/20 03/11/25 release (Adult Low Dose Aspirin) fluticasone furoate 200 1 inh inhalation DAILY 03/19/20 03/11/25 mcg-vilanterol 25 mcg/dose inhalation powder (Breo Ellipta) oxycodone-acetaminophen 5 mg-325 1 tab PO Q12H PRN Pain 03/19/20 03/11/25 mg tablet (Percocet) levalbuterol HCl 1.25 mg/3 mL 1.25 mg inhalation Q4H PRN 09/13/22 03/11/25 solution for nebulization Respiratory Distress nicotine 21 mg/24 hr daily 21 patch transdermal DAILY 02/25/25 03/11/25 transdermal patch Previous Rx's ?Medication ?Instructions ?Recorded albuterol sulfate 90 mcg/actuation 1 inh inhalation QID PRN shortness 08/13/22 aerosol inhaler of breath or wheezing #8.5 grams gabapentin 300 mg capsule 900 mg (3 x 300 mg) PO .COMPLEX 90 10/24/24 days #270 caps hydroxychloroquine 200 mg tablet See Rx Instructions PO .COMPLEX 01/14/25 #180 tabs fluticasone fur. 200 mcg-umeclid 1 inh inhalation DAILY #60 ea 02/23/25 62.5 mcg-vilant 25 mcg inhalat.powder (Trelegy Ellipta) morphine 15 mg immediate release 15 mg PO BID PRN pain #7 tabs 03/05/25 tablet ondansetron 8 mg disintegrating 8 mg PO Q8H PRN nausea and 03/12/25 tablet vomiting #30 tabs dexamethasone 4 mg tablet 4 mg PO BID #20 tabs 03/18/25 Allergies Allergy/AdvReac Type Severity Reaction Status Date / Time paclitaxel Allergy Shortness Verified 03/19/25 17:41 of Breath PMFSH Past Medical History Medical History (Updated 03/20/25 @ 00:00 by Juan Antonio Long) History of DVT (deep vein thrombosis) (~2014) Systemic lupus erythematosus (~2006) Long-term use of hydroxychloroquine Osteopenia (~2024) COPD (chronic obstructive pulmonary disease) Asthma Obstructive sleep apnea Nicotine dependence, cigarettes, uncomplicated Hyperplastic colon polyp Surgical History History of colonoscopy Family History Family History Mother Breast cancer Sister Breast cancer Social History Social History Household Members: Significant Other and None Housing: Apartment Do you presently have visiting nurse or other home services: No Alcohol intake: current Alcohol intake frequency: holidays/special occasions only Alcohol type: hard liquor Patient Tobacco Use Status: Current everyday Tobacco user Tobacco use type: Cigarette Cigarette Packs Per Day: 1 Years Smoked: (onset 15yo, 1/2ppd x 44yrs, 22pyh) Smoked in Last 30 Days: No Second Hand Smoke Exposure: No Use of substances other than those prescribed or required for medical reasons: No Advance Directives: No Advance Directives Information Provided: No Do you have a plan to hurt others: No Plan Patient : No service: No Current occupational status: disabled Physical Exam ED Exam Exam: EXAM: Gen: Alert, on arrival after having walked to the bed she appears mildly tachypneic mild respiratory distress but is able to speak in full sentences to me. Head: Atraumatic Eyes: Anicteric, Normal conjunctiva. ENT: Moist mucosa, no pallor. ? Neck: Supple. Skin: ?No observable rash or bruising on exposed or examined skin Respiratory: Mild tachypnea, decreased air entry in the left side, patent airway, clear breath sounds in the right side Cardiovascular: Rate about 100 and rhythm. No murmurs or rub. Well perfused periphery, warm extremities. No edema. ? Abdominal: No focal tenderness. Soft, no objective distension. No palpable masses or obvious organomegaly. ?No guarding, no rebound tenderness or other peritoneal findings. : No flank tenderness. Neuro: Alert. Gross movement of all extremities intact. ? Psych: Calm. Cooperative. MSK: No grossly visible deformity. Vital signs: See flowsheet Vital Signs: Vital Signs - 24 hr 03/19/25 17:30 03/19/25 19:42 03/19/25 19:51 Temperature 98.2 F 97.4 F 97.4 F Pulse Rate 96 80 80 Respiratory Rate 30 H 20 20 Blood Pressure 117/87 96/68 96/68 Pulse Oximetry 96 96 96 Oxygen Delivery Method Room Air Room Air Room Air BMI result Body Mass Index 26.3 Course Reevaluation(s) Reevaluation #1: 7:36 PM [facility]20[facility] was [facility] in the ED without hypoxia or significant distress. X-ray is expected life likely somewhat worsening cancer in the left side. After rest the patient's respiratory rate improves I did re-evaluate her after her walking test and respiratory rate decreased to low 20s Unclear etiology of the patient's reaction today may be infusion related versus anxiety. Reassuring chest/cardiac ultrasound per no actionable or drainable effusion. No actionable lab work history not suggestive of allergic certainly no angioedema or actionable allergic findings on clinical exam. The patient was reassured by this we will have her follow up closely and advised her to call oncology tomorrow Procedures Procedure Narrative Procedure Narrative: EMERGENCY ULTRASOUND INTERPRETATION-Limited Echocardiography [This study was ordered, performed, and interpreted by myself. The study reveals: Impression: NORMAL LV FUNCTION, NO RV DYSFUNCTION, NO PERICARDIAL EFFUSION] [Emergent Cardiac for Indication: Views Used: PLAX, PSSA, A4, SX, IVC Pericardial Effusion/Tamponade Findings: NONE RV Dilation (> LV diam in 4ch apical): NONE Global LV Fxn: NORMAL IVC Dilation and Resp Variation: NORMAL Performed by: MD Bang Images were stored CPT:59233] __ EMERGENCY ULTRASOUND INTERPRETATION-Point of Care Thoracic: IMPRESSION: Small complex pleural effusion left side non accessible by thoracentesis safely Indication: Dyspnea Findings: Left Pleural 2ICS: POSITIVE SLIDING, No B Lines or Consolidation Left PLAPS: ?Small effusion Performed by: Yariel Cuenca MD ? Images were stored CPT: [id number]] Medical Decision Making Medical Decision Making MDM Narrative: Medical Decision Makin-year-old female with new diagnosed left lung cancer with known atelectatic lung. In fact I saw this patient about 2 weeks ago PE was excluded at that time she has relatively stable but intermittent dyspnea worse at night and after minimal exertion which happened today. She also had few episodes of diaphoresis and mild anxiety distress that was attributable to new chemotherapy infusion throughout the day today intermittently. No clinical signs or history suggestion of angioedema urticaria or other typical allergic reaction. X-ray here with atelectatic lung and effusion. Echo without severe global LV hypokinesis. Preliminary Favored Differential Diagnosis: Acute on chronic dyspnea related to cancer, pleural effusion, pneumothorax, pneumonia, lung cancer, postobstructive atelectasis or pneumonia, heart failure, pericardial effusion among additional considered etiologies Testing Interpreted Independently: ?See below for details Radiology or Lab testing Results Reviewed: ?See below for details Consults: ?See below for details Independent Historians/External Chart Reviews: ?See below for details Social Determinants of Health Impacting MDM/Planning: ?See below for details Lab Data 03/19/25 18:22 03/19/25 18:22 Labs: Lab Results 03/19/25 Range/Units 18:22 WBC 6.1 (4.8-10.8) X10*3/uL RBC 3.70 L (4.20-5.50) X10*6/uL Hgb 10.0 L (12.0-16.0) g/dl Hct 31.5 L (37.0-47.0) % MCV 85.1 (80.0-98.0) fL MCH 27.0 (27.0-33.0) pg MCHC 31.7 (31.0-35.0) g/dl RDW 17.7 H (11.0-16.0) % Plt Count 338 D (160-400) X10*3/uL MPV 9.1 L (9.4-12.3) fL Immature Gran % (Auto) 0.3 (0.0-0.4) % Neut % (Auto) 90.5 H (45-73) % Lymph % (Auto) 8.4 L (20-40) % [place] % (Auto) 0.8 L (2-11) % Eos % (Auto) 0.0 (0-4) % Baso % (Auto) 0.0 (0-2) % Lymph # (Auto) 0.5 L (1.2-4.9) X10*3/uL [place] # (Auto) 0.1 (0.1-1.2) X10*3/uL Eos # (Auto) 0.0 (0.0-0.4) X10*3/uL Baso # (Auto) 0.0 (0.0-0.2) X10*3/uL Abs Immat Gran (auto) 0.02 (0.00-0.03) X10*3/uL Absolute Neuts (auto) 5.5 (2.0-8.3) x10*3/uL Absolute Nucleated RBC 0.000 (0.0-0.012) X10*3/uL Nucleated RBC % (auto) 0.0 (0.0-0.2) /100WBC Smear Tech's Comments VERIFIED Sodium 140 (135-145) mmol/L Potassium 3.9 (3.3-5.1) mmol/L Chloride 110 H (96-108) mmol/L Carbon Dioxide 19 L (22-29) mmol/L Anion Gap 15 (12-20) BUN 6 L (9-16) mg/dL Creatinine 0.84 (0.5-1.4) mg/dL Estim Creat Clear Calc 64.7 Estimated GFR > 60 Random Glucose 141 H (60-115) mg/dL Calcium 8.6 (8.4-10.2) mg/dL Total Bilirubin 0.5 (0.0-1.0) mg/dL AST 27 (5-31) U/L ALT 9 (0-31) U/L Alkaline Phosphatase 119 H (39-117) U/L Troponin I High Sens 3.9 (<3.5-17.0) ng/L NT-Pro-B Natriuret Pep 149.5 (<300) pg/mL Total Protein 9.6 H (6.5-8.0) g/dL Albumin 3.6 (3.5-5.0) g/dL Discharge Plan Discharge Clinical Impression: Lung cancer Patient Disposition: Home, Self-Care Instructions: Lung Cancer (DC) Additional Instructions: Today we evaluated in the emergency department for shortness of breath hypertension and sweating and presumed reaction during your chemotherapy infusion. You do have shortness of breath when exerting yourself which has been there since the onset of your cancer diagnosis. You did not develop any low oxygen or severe distress in the emergency department. You had an x-ray which shows slightly progressing left-sided cancer with a small effusion or fluid around the left side of the lung. Please call your oncology office tomorrow and follow up as needed Prescriptions: No Action gabapentin 300 mg capsule 900 mg PO .COMPLEX 90 Days Qty: 270 1RF Rx Instructions: 900 mg orally; take two tablets at night and 1 tablet in the morning hydroxychloroquine 200 mg tablet See Rx Instructions PO .COMPLEX Qty: 180 1RF Rx Instructions: 400 mg daily x5 days a week and 200 mg daily x2 days a week albuterol sulfate 90 mcg/actuation HFA aerosol inhaler 1 inh inhalation QID PRN (Reason: shortness of breath or wheezing) Qty: 8.5 0RF levalbuterol HCl 1.25 mg/3 mL Solution For Nebulization 1.25 mg INHALATION Q4H PRN (Reason: Respiratory Distress) nicotine 21 mg/24 hr Patch 24 Hour 21 patch transdermal DAILY ondansetron 8 mg Tablet,Disintegrating 8 mg PO Q8H PRN (Reason: nausea and vomiting ) Qty: 30 3RF dexamethasone 4 mg Tablet 4 mg PO BID Qty: 20 0RF Rx Instructions: Take for 2 days after chemotherapy morphine 15 mg tablet 15 mg PO BID PRN (Reason: pain) Qty: 7 0RF Rx Instructions: Partial Fill upon patient request. oxycodone-acetaminophen [Percocet] 5-325 mg tablet 1 tab PO Q12H PRN (Reason: Pain) aspirin [Adult Low Dose Aspirin] 81 mg tablet,delayed release (DR/EC) 81 mg PO DAILY Breo Ellipta 200-25 mcg/dose blister with device 1 inh inhalation DAILY Trelegy Ellipta 200-62.5-25 mcg blister with device 1 inh inhalation DAILY Qty: 60 3RF Interventions: ED Discharge Assessment Last Done: 03/19/25 19:51 Discharge Date/Time: 03/19/25 19:56 Print Language: Guamanian
[2025-03-19 18:33] LABS: Hematocrit 31.5 % (37.0-47.0); Hemoglobin 10.0 g/dl (12.0-16.0); Imm Gran Abs Auto 0.02 X10*3/uL (0.00-0.03); Imm Gran Pct Auto 0.3 % (0.0-0.4); Lymphocytes Absolute Auto 0.5 X10*3/uL (1.2-4.9); MANUAL DIFF FLAG SCAN; Mean Corpuscular HGB Conc 31.7 g/dl (31.0-35.0); Mean Corpuscular Hemoglobin 27.0 pg (27.0-33.0); Mean Corpuscular Volume 85.1 fL (80.0-98.0); NRBC Abs Auto 0.000 X10*3/uL (0.0-0.012); NRBC Pct Auto 0.0 /100WBC (0.0-0.2); Platelet Count 338 X10*3/uL (160-400); Red Blood Count 3.70 X10*6/uL (4.20-5.50); SCAN SMEAR FLAG 1; White Blood Count 6.1 X10*3/uL (4.8-10.8)
[2025-03-19 18:42] LABS: Alanine Aminotransferase 9 U/L (0-31); Albumin Level 3.6 g/dL (3.5-5.0); Alkaline Phosphatase 119 U/L (39-117); Anion Gap 15 (12-20); Aspartate Amino Transferase 27 U/L (5-31); Blood Urea Nitrogen 6 mg/dL (9-16); Calcium 8.6 mg/dL (8.4-10.2); Carbon Dioxide 19 mmol/L (22-29); Chloride 110 mmol/L (96-108); Creatinine Clr Calc Pharmacy 64.7; Estimated Glomerular Filt Rate > 60; Potassium 3.9 mmol/L (3.3-5.1); Sodium 140 mmol/L (135-145); Total Protein 9.6 g/dL (6.5-8.0)
[2025-03-19 18:48] LABS: NT Pro B Type Natriuretic Pept 149.5 pg/mL (<300); Troponin-I High Sensitivity 3.9 ng/L (<3.5-17.0)
--- NOTE | 2025-03-19 19:29 | MHC.EDTECH ---
PATIENT WAS AMBULATED FOR O2 TRIAL.PATIENT WAS ABLE TO WALK WITH [facility].PATIENT O2 PRIOR WAS 96,PULSE RATE 96, RESPIRATIONS 18.AFTER AMBULATING PATIENTS O2 WAS 94 ,PULSE RATE 103, RESPIRATIONS 18.
[2025-03-19 19:42] VITALS: BP 96/68; PULSE 80; RESP 20; TEMP 36.3; O2SAT 96
[2025-03-19 19:51] VITALS: BP 96/68; PULSE 80; RESP 20; TEMP 36.3; O2SAT 96
--- OUTSIDE RECORDS SUMMARY | 2025-03-19 19:57 | XMS_ITS | Clinical Summary ---
Author Organization [employer] Address [address] [facility] [address] [place] [address] Care Team Providers Care Pit Steward Name Role Phone Marjan Sams MD Primary Care Provider [phone] Esteban Nice MD Unavailable Ashley Chanel OD Unavailable [phone] Alban Koehler Unavailable Sonja Patel MD Unavailable [phone] Jack Lyles Unavailable Allergies No known active allergies Medications levalbuterol (Xopenex) 1.25 MG/3ML nebulizer solutionIndica tions:Mild asthma with acute exacerbation, unspecified whether persistent Use 3 ml po q 4 hours prn 300 mL 3 08/11/19 23 Active hydroxychloroq uine (Plaquenil) 200 MG tabletIndicati ons:Systemic lupus erythematosus, unspecified SLE type, unspecified organ involvement status (CMS/HCC) ([facility]) Take 200 mg by mouth 2 times daily. Per rheumatology Active naloxone (Narcan) 4 mg/0.1 mL nasal sprayIndicatio ns:Chronically on opiate therapy Administer 1 spray (4 mg) into affected nostril(s) if needed for opioid reversal. 2 each 02/13/20 24 Active Fluticasone Furoate-Vilant sugar (Breo Ellipta) 200-25 MCG/ACT aerosol powderIndicati ons:Chronic obstructive pulmonary disease, unspecified COPD type (CMS/HCC) ([facility]) Inhale 1 Inhalation. Once per day. 1 [...] DAY. 90 tablet 3 02/05/20 25 Active morphine (MSIR) 15 MG tabletIndicati ons:Pain Take 1 tablet (15 mg) by mouth if needed in the morning and at bedtime for severe pain. Pt will take Percocet for moderate pain and Morphine for severe pain. Diagnosis metastatic lung cancer. She is aware not to take the medicaions together 60 tablet 03/12/20 25 2024 Active oxyCODONE-acet aminophen (Percocet) 5-325 MG tabletIndicati ons:Arthritis of both knees Take 1 tablet by mouth every 12 (twelve) hours if needed for severe pain. 56 tablet 03/18/20 25 Active oxyCODONE-acet aminophen (Percocet) 5-325 MG tabletIndicati ons:Arthritis of both knees Take 1 tablet by mouth every 12 (twelve) hours if needed for severe pain. 56 tablet 01/16/20 25 2024 Discontinued(R eorder (will not trigger notification to Pharmacy)) oxyCODONE-acet aminophen (Percocet) 5-325 MG tabletIndicati ons:Arthritis of both knees Take 1 tablet by mouth every 12 (twelve) hours if needed for severe pain. 56 tablet 02/21/20 25 2024 Discontinued(R eorder (will not trigger notification to Pharmacy)) Active Problems Patient Care Coordination No te Formatting of this note migh t be different from the original. C3/CM Millie Whiteside RN Problem Noted Date Diagnosed Date Squamous cell carcinoma lung, left (CMS/HCC) Overview (03/13/2025): -CT scan for tobacco screening 01/27/25 revealed spiculated masslike consolidation in the left upper lobe concerning for neoplasm -left lung biopsy performed on 02/17/25 with patient revealed invasive squamous cell carcinoma. PD-L1 expression positive, TPS 2%, CPS 5. -PFTs revealed moderate to severe obstructive ventilatory defect with restrictive ventilatory defect with no bronchodilator response. Increased residual volume suggests air trapping. Decreased diffusion capacity, 27%, suggests emphysema. -start rxmjzkdzwnj-cyjatkiaq-pojfracq 200-62.5-25 mcg (Trelegy Ellipta) 1 inh inhalation DAILY 60 ea 3RF 02/24/25 -establish with oncologist, Dr. Sanabria 02/26/25 -PET-CT performed at [facility] 02/24/2025 revealed complete left upper lobe collapse [...] lobe, neoadjuvant chemo immunotherapy would be beneficial. Patient does have systemic lupus erythematosus which [...] be required as part of pre-surgical evaluation. -She will be referred to Dr. Lyles at [facility] for surgical evaluation. -MRI brain 03/06/25 MR/MR head/brain wo/w con No evidence of intracranial hemorrhage, acute infarction, mass effect, edema, or abnormal contrast enhancement. No evidence of metastatic disease to the brain. -note from Dr. Sanabria 03/11/25 Based on above, she has at least locally advanced stage III disease. -discussed neoadjuvant chemo immunotherapy with carboplatin, Abraxane and pembrolizumab. -discussed MediPort placement and schedule this with intervention Radiology in the next few days. She will be scheduled for chemo immunotherapy next week. -pain control via PCP due to I was already prescribing, currently on Morphine 15mmg bid severe pain and Percocet BID prn moderate pain, not to take the two together. Has narcan at home. Assessment & Plan (03/13/2025 10:12 AM EDT): -CT scan for tobacco screening 01/27/25 revealed spiculated masslike consolidation in the left upper lobe concerning for neoplasm -left lung biopsy performed on 02/17/25 with patient revealed invasive squamous cell carcinoma. PD-L1 expression positive, TPS 2%, CPS 5. -PFTs revealed moderate to severe obstructive ventilatory defect with restrictive ventilatory defect with no bronchodilator response. Increased residual volume suggests air trapping. Decreased diffusion capacity, 27%, suggests emphysema. -start fkdtskojfak-ofxkkfosv-egczmoih 200-62.5-25 mcg (Trelegy Ellipta) 1 inh inhalation DAILY 60 ea 3RF 02/24/25 -establish with oncologist, Dr. Sanabria 02/26/25 -PET-CT performed at [facility] 02/24/2025 revealed complete left upper lobe collapse [...] lobe, neoadjuvant chemo immunotherapy would be beneficial. Patient does have systemic lupus erythematosus which [...] be required as part of pre-surgical evaluation. -She will be referred to Dr. Lyles at [facility] for surgical evaluation. -MRI brain 03/06/25 MR/MR head/brain wo/w con No evidence of intracranial hemorrhage, acute infarction, mass effect, edema, or abnormal contrast enhancement. No evidence of metastatic disease to the brain. -note from Dr. Sanabria 03/11/25 Based on above, she has at least locally advanced stage III disease. -discussed neoadjuvant chemo immunotherapy with carboplatin, Abraxane and pembrolizumab. -discussed MediPort placement and schedule this with intervention Radiology in the next few days. She will be scheduled for chemo immunotherapy next week. -pain control via PCP due to I was already prescribing, currently on Morphine 15mmg bid severe pain and Percocet BID prn moderate pain, not to take the two together. Has narcan at home. Osteopenia of multiple sites 10/29/2024 Overview (10/29/2024): [...] ortho placed 09/03/24 -Seen by Dr. Koehler optical effects line up person at [facility] , no changes Assessment & Plan (10/01/2024 [...] Lasik in [facility] -health care proxy: pt reports has at home 06/25/23 Assessment & Plan (10/01/2024 2:58 PM EDT): -next comprehensive annual evaluation due after 10/01/25 -eye care facilitated by [facility] in [facility] -health care proxy: pt reports has at home 06/25/23 Assessment & Plan (06/25/2023 11:24 AM EST): -next physical exam due after 06/25/24 -eye care facilitated by [facility] in [facility] -health care proxy: pt reports has [...] as pharmacomtherapy, [facility] smoking cessation group, and [facility] pharmacy smoking cessation clinic Discussed USPSTF [...] as pharmacomtherapy, [facility] smoking cessation group, and [facility] pharmacy smoking cessation clinic Discussed USPSTF [...] Encouraged smoking cessation resources such as pharmacomtherapy, [facility] smoking cessation group, and [facility] pharmacy smoking cessation clinic Discussed USPSTF [...] modifications -Continue current medications Systemic lupus erythematosus (CMS/[facility]) 2 Overview (10/06/2024): Onset 2014 (intermittent leukopenia, oral ulcers, bilateral elbow arthritis, ++ URIAH, [employer], ++ dsDNA, low C3) -methotrexate caused oral [...] eye exams with [facility] in [place] -note from Dr. Rodriguez 04/15/24 Discussed the [...] oral ulcers, bilateral elbow arthritis, ++ URIAH, [employer], ++ dsDNA, low C3) -methotrexate caused oral [...] eye exams with [facility] in [place] -note from Dr. Rodriguez 04/15/24 Discussed the [...] Encounters Date Type Department Care Team Description 03/17/2025 Patient Outreach [facility] [address] [place], [place] [phone] Marjan Sams MD Care Coordination ([facility] outreach for SDOH PT-1 and food needs-referral completed /) 03/17/2025 Telephone [facility] [address] [place], [place] [phone] Marjan Sams MD pt1 03/17/2025 Refill [facility] [address] [place] [address] Marjan Sams MD Arthritis of both knees 03/16/2025 Telephone [facility] [address] [place] [phone] Marjan Sams MD Call Back Request 03/13/2025 9:45 AM EDT Telemedicine [address] [address] Marjan Sams MD Squamous cell carcinoma lung, left (CMS/HCC) (HCC) (Primary Dx) 03/13/2025 Telephone [facility] [address] [place] [address] Marjan Sams MD 03/12/2025 Telephone [facility] [address] [place] [address] Marjan Sams MD chart prep 03/12/2025 Orders Only [facility] [address] [place] [address] Marjan Sams MD Squamous cell carcinoma lung, left (CMS/HCC) (HCC) (Primary Dx) 03/06/2025 Orders Only [facility] External Provider, [facility] Squamous cell carcinoma lung, left (CMS/HCC) (HCC) (Primary Dx) 03/05/2025 Orders Only [facility] External Provider, [facility] 03/05/2025 Telephone [facility] [address] [place], [place] [phone] Viridiana Hernández RN 02/25/2025 Orders Only [facility] [address] [place] [phone] ProviderYoseph MD 02/23/2025 Telephone [facility] [address] [place] [address] Marjan Sams MD 02/20/2025 9:30 AM EDT Clinical Support [address] [address] Viridiana Hernández, RN Chronically on opiate therapy (Primary Dx) 02/20/2025 Refill [facility] [address] [place], [place] [phone] Viridiana Hernández, KIMBERLY Arthritis of both knees 02/20/2025 Travel 02/17/2025 Orders Only [facility]TERNAL DATA DEPARTMENT Provider, Generic External Data 02/10/2025 Patient Outreach [address] [address] Marjan Sams MD Care Coordination ([facility] outreach for SDOH PT-1 and food needs-referral completed /) 02/10/[address] [address] Marjan Sams MD Pt1 02/10/[address] [address] Marjan Sams MD Tobacco dependence syndrome 02/05/[address] [address] Marjan Sams MD cancel appt 03/12/25 02/05/2025 Travel 02/04/[address] [address] Marjan Sams MD History of DVT (deep vein thrombosis) 01/28/2025 Results Follow-Up [address] [address] Lung Screening Low dose 01/23/2025 Orders Only [facility] External Provider, [facility] Abnormal CT scan, lung (Primary Dx); Tobacco dependence syndrome 01/15/[address] [address] Marjan Sams MD Arthritis of both knees 12/26/[address] [address] Marjan Sams MD March Recalls 12/26/2024 Travel 12/19/2024 Refill [facility] [address] [place] [address] Marjan Sams MD History of DVT (deep vein thrombosis) 12/18/[address] [address] Marjan Sams MD Arthritis of both knees from Last 3 Months Immunizations Immunization Administration Dates Next Due Hep A, Adult 06/25/2023,10/05/2022 Hep B, adult 04/06/2023,11/03/2022,10/05/2022 INFLUENZA INJECTABLE QUADRIV ALANT CCIIV4 MDCK Multi-dose vial 03/10/2022 Influenza injectable quadriv alent IIV4 with preservative 02/20/2018,02/24/2015 Influenza injectable quadriv alent preservative free 04/06/2023,02/16/2021,03/11/2020,07/10,05/10/2016 Influenza, IIV3, injectable 02/12/2014,0 02/17/2011,04/20/2008,02/20 Influenza, Recombinant, inje ctable, preservative free 03/02/2025 Influenza, Split (incl. hitesh fied surface antigen) [...] Date Recorded Patient Health Questionnaire-9 Score 0 03/13/2025 Patient Health Questionnaire-9 Score 0 03/13/2025 Last PHQ-9: Questionnaire Data Not on file 1 Housing Stability Answer Date Recorded What is [...] Date Recorded Patient Health Questionnaire-2 Score 0 03/13/2025 Internet Access Answer Date Recorded Internet Access [...] Care Team (Late st Contact Info) Description 04/06/2025 11:30 AM EST Telemedicine [facility] [address] [place] [address] Marjan Sams MD [address] [place] [address] 06/12/2025 10:30 AM EST Clinical Support [facility] [address] [place] [address] Viridiana Hernández RN [address] [place] [address] Health Maintenance Due Date Last Done Comments CT Colonography 1965 FIT DNA/Cologuard 1965 FIT 1965 FOBT 1965 Sigmoidoscopy 1965 Mammogram 09/23/2024 03/25/2024, 03/05, 02/11/2024, Additional history exists SDOH Screening 09/23/2025 09/23/2024 Alcohol/Substance Use Screening 10/01/2025 10/01/2024 Depression Screening 03/13/2026 03/13/2025, 03/13/20 25 Disability Screening 03/13/2026 03/13/2025 Tobacco Screening 03/13/2026 03/13/2025 Colonoscopy 03/30/2027 03/30/2017 Colorectal Cancer Screening 03/30/2027 [...] Name Priority Date/Time Associated Diagnosis Comments MR BRAIN W AND WO CONTRAST Routine 03/06/2025 3:16 PM EDT CTA CHEST PE PROTOCAL Routine 03/05/2025 7:58 [...] Recently Relevant to Health Maintenance Results * Mr Brain w/ and w/o Contrast (03/06/2025 3:16 PM EDT) Anatomical Region Laterality Modality Brain Magnetic Resonan ce 03/06/2025 3:16 PM EDT Narrative 03/06/2025 4:24 PM EDT [address] [address] Magnetic Resonance Report Signed Patient: Tammy Moeller MR#: [id number] : 1965 Acct:[id number] Age/Sex: 59 / F ADM Date: 03/06/25 Loc: HO.MRI Attending Dr: Sonja Patel MD Ordering Physician: Sonja Patel MD Date of Service: 03/06/25 Procedure(s): MR head/brain wo/w con Accession Number(s): [id number] cc: Marjan Sams MD; Sonja Patel MD Reason for Exam: staging EXAMINATION: MR BRAIN WITHOUT AND WITH CONTRAST CLINICAL INFORMATION: Lung CA, staging. COMPARISON: No prior. TECHNIQUE: Multiplanar, multisequence MRI of the brain was obtained before and after the intravenous administration of 7 mL Gadavist. Examination performed on a 1.5 Martha Siemens high-field unit. FINDINGS: There is no diffusion restriction. There is no intracranial hemorrhage, acute infarction, mass effect, or edema. Ventricles, sulci, and cisterns are normal in size and configuration for patient age. There is a cavum vergae. No shift of midline. No abnormal hemosiderin deposition is identified. There are a few scattered punctate foci of white matter T2 hyperintensity in the periventricular, subcortical, and hemispheric deep white matter. These foci are nonspecific but statistically most likely relate to small vessel ischemic changes. There is no abnormal intra or extra-axial enhancement after the administration of contrast. Midline structures appear normally formed. The pituitary gland appears normal. Posterior fossa structures appear normal. Cerebellar tonsils are appropriately located. Major flow voids are preserved within the skull base. The globes and orbital contents demonstrate no abnormalities. Paranasal sinuses demonstrate mild to moderate mucosal thickening in the left maxillary sinus. Sinuses are otherwise clear bilaterally. The mastoids and tympanic cavities are normally aerated. Extracranial soft tissues demonstrate no abnormalities. No suspicious bone marrow changes are evident. Atlantoaxial joint demonstrates mild to moderate degenerative changes. MR/MR head/brain wo/w con IMPRESSION: 1. No evidence of intracranial hemorrhage, acute infarction, mass effect, edema, or abnormal contrast enhancement. No evidence of metastatic disease to the brain. 2. Mild changes of small vessel ischemia. Electronically signed by: Amor Jimenez MD 03/06/2025 04:21 PM EDT RP Dictated By: Amor Jimenez MD Signed By: <Electronically signed by Amor Jimenez MD in OV> 03/06/25 1621 DD/ 1516 TD/TT: 03/06/25 1553 Vitamin Manager: Procedure Note Donotuseinterpreter, Image - 03/06/[address] [address] Magnetic Resonance Report Signed Patient: Tammy Moeller#: [id number] : 1965Acct:[id number] Age/Sex: 59 / FADM Date: 03/06/25 Loc: HO.MRI Attending Dr: Sonja Patel MD Ordering Physician: Sonja Patel MD Date of Service: 03/06/25 Procedure(s): MR head/brain wo/w con Accession Number(s): [id number] cc: Marjan Sams MD; Sonja Patel MD Reason for Exam: staging EXAMINATION: MR BRAIN WITHOUT AND WITH CONTRAST CLINICAL INFORMATION: Lung CA, staging. COMPARISON: No prior. TECHNIQUE: Multiplanar, multisequence MRI of the brain was obtained before and after the intravenous administration of 7 mL Gadavist. Examination performed on a 1.5 Martha Siemens high-field unit. FINDINGS: There is no diffusion restriction. There is no intracranial hemorrhage, acute infarction, mass effect, or edema. Ventricles, sulci, and cisterns are normal in size and configuration for patient age. There is a cavum vergae. No shift of midline. No abnormal hemosiderin deposition is identified. There are a few scattered punctate foci of white matter T2 hyperintensity in the periventricular, subcortical, and hemispheric deep white matter. These foci are nonspecific but statistically most likely relate to small vessel ischemic changes. There is no abnormal intra or extra-axial enhancement after the administration of contrast. Midline structures appear normally formed. The pituitary gland appears normal. Posterior fossa structures appear normal. Cerebellar tonsils are appropriately located. Major flow voids are preserved within the skull base. The globes and orbital contents demonstrate no abnormalities. Paranasal sinuses demonstrate mild to moderate mucosal thickening in the left maxillary sinus. Sinuses are otherwise clear bilaterally. The mastoids and tympanic cavities are normally aerated. Extracranial soft tissues demonstrate no abnormalities. No suspicious bone marrow changes are evident. Atlantoaxial joint demonstrates mild to moderate degenerative changes. MR/MR head/brain wo/w con IMPRESSION: 1. No evidence of intracranial hemorrhage, acute infarction, mass effect, edema, or abnormal contrast enhancement. No evidence of metastatic disease to the brain. 2. Mild changes of small vessel ischemia. Electronically signed by: Amor Jimenez MD 03/06/2025 04:21 PM EDT RP Dictated By: Amor Jimenez MD Signed By: <Electronically signed by Amor Jimenez MD in OV> 03/06/25 1621 DD/ 1516 TD/TT: 03/06/25 1553 Vitamin Manager: [facility] External Provider IMG MRI PROCEDURES Final Result * CTA Chest PE Protocal (03/05/2025 7:58 PM EDT) Anatomical Region Laterality Modality Body, Chest Computed Tomogra phy 03/05/2025 7:58 PM EDT Narrative 03/05/2025 8:00 PM EDT [address] [address] [address] Scan Report Signed with Addenda Patient: Tammy Moeller MR#: [id number] : 1965 Acct:[id number] Age/Sex: 59 / F ADM Date: 03/05/25 Loc: HO.ED Attending Dr: Ordering Physician: Yariel Cuenca MD Date of Service: 03/05/25 Procedure(s): CT angio chest PE protocol Accession Number(s): [id number] cc: Marjan Sams MD; Yariel Cuenca MD Report Number: [id number]: Total DLP = 0.00 mGy-cm Reason for [...] Messina MD on 03/05/2025 19:58:34 Dictated By: Peetr Messina MD Signed By: <Electronically signed by Peter Messina MD in OV> 03/05/251958 DD/ 57 TD/TT: 03/05/251957 Vitamin Manager: Procedure Note Surjit, Image - 03/05/[address] [place] [address] [address] Scan Report Signed with Addenda Patient: Tammy Moeller#: [id number] : 1965Acct:[id number] Age/Sex: 59 / FADM Date: 03/05/25 Loc: .ED Attending Dr: Ordering Physician: Yariel Cuenca MD Date of Service: 03/05/25 Procedure(s): CT angio chest PE protocol Accession Number(s): [id number] cc: Marjan Sams MD; Yariel Cuenca MD Report Number: [id number]: Total DLP = 0.00 mGy-cm Reason for [...] in OV> 03/05/251958 DD/ 57 TD/TT: 03/05/251957 Vitamin Manager: [facility] External Provider IMG CT PROCEDURES Edited Result - Final * XR Chest 2 Views (03/05/2025 4:50 PM EDT) Only the most recent of2 resultswithin the time period is included. Anatomical Region Laterality Modality Chest Radiographic Erendira ging 03/05/2025 4:50 PM EDT Narrative 03/05/2025 5:07 PM EDT [address] [address] XRay Report Signed Patient: Tammy Moeller MR#: [id number] : 1965 Acct:[id number] Age/Sex: 59 / F ADM Date: 03/05/25 Loc: HO.ED Attending Dr: Ordering Physician: Yariel Cuenca MD Date of Service: 03/05/25 Procedure(s): XR chest 2V Accession Number(s): [id number] cc: Marjan Sams MD; Yariel Cuenca MD [...] in OV> 03/05/25 1704 DD/ 1650 TD/TT: 03/05/25 1652 Vitamin Manager: Procedure Note Donotuseinterpreter, Image - 03/05/[address] [address] XRay Report Signed Patient: Tammy Moeller#: [id number] : 1965Acct:[id number] Age/Sex: 59 / FADM Date: 03/05/25 Loc: .ED Attending Dr: Ordering Physician: Yariel Cuenca MD Date of Service: 03/05/25 Procedure(s): XR chest 2V Accession Number(s): [id number] cc: Marjan Sams MD; Yariel Cuenca MD [...] in OV> 03/05/25 1704 DD/ 1650 TD/TT: 03/05/25 1652 Vitamin Manager: [facility] External Provider IMG XR PROCEDURES Edited Result - Final * PET/CT Bone Skull Base to Mid Thigh (02/24/2025 11:00 AM EDT) Anatomical Region Laterality Modality Body Computed Tomogra phy [facility] Provider IMTawny CT PROCEDURES Final R esult * (ABNORMAL) [...] - 02/20/2025 9:51 AM EDT .UTOX cup Lot#[id number] Exp. 03/10/26 Internal Pass Control Marjan Sams MD POINT OF CARE TEST ENTER/E DIT ORDERABLES Final Result * Gross and Microscopic Level 4 (02/17/2025 11:02 AM EDT) 02/17/2025 11:0 2 AM EDT 02/17/2025 2:34 PM EDT Narrative [facility] - 03/04/2025 11:50 AM EDT ----- ------- Name: Tammy Moeller Age/Sex: 59/F : 1965 Unit#: [id number] Attend Dr: Yann Fu MD Re02/17/25 Status: [facility] Location: [facility] Disch: ----- ------- SPEC : [id number] RECD: 02/17/25 STATUS: GLEN CAMERON NUM: [id number] NICOLETTE: 02/17/25-[address]: Pranay Arndt MD ENTERED: 02/17/25 SP TYPE: Surgical OTHR DR: Marjan Sams MD, Andrey MD ORDERED: Gross Micro L4, IHC, Add. immunos, p40, p63, NSCLC Lung bx COMMENTS: Block A sent to [facility] for xT xR Solid Tumor/PD-L1 on 02/20/25. Addendum Addendum 2 Entered: [facility]04/25-[facility] expression 22C3: Positive Tumor proportion score (TPS): 2% Combined positive score (CPS): 5 Genomic variants: Biologically Relevant: RB1: p.K447* Stop gain - LOF 21.2% TP53: p.Q167* Stop gain - LOF 18.9% FUBP1: p.R37* Stop gain - LOF 17.4% KMT2D: p.V9917qs Frameshift - LOF 17.4% B2M: p.P25fs Frameshift [...] Tammy Moeller Age/Sex: 59/F : 1965 Unit#: [id number] Attend Dr: Yann Fu MD Re02/17/25 Status: [facility] Location: [facility] Disch: ----- ------- SPEC : [id number] RECD: 02/17/25 STATUS: GLEN CAMERON NUM: [id number] NICOLETTE: 02/17/25-[address]: Pranay Arndt MD ENTERED: 02/17/25 SP TYPE: Surgical OTHR DR: Marjan Sams MD, Andrey MD ORDERED: Gross Micro L4, IHC, Add. immunos, p40, p63, NSCLC Lung bx COMMENTS: Block A sent to [facility] for xT xR Solid Tumor/PD-L1 [...] Tammy Moeller Age/Sex: 59/F : 1965 Unit#: [id number] Attend Dr: Yann Fu MD Re02/17/25 Status: [facility] Location: [facility] Disch: ----- ------- SPEC : [id number] RECD: 02/17/25 STATUS: GLEN CAMERON NUM: [id number] NICOLETTE: 02/17/25-[address]: Pranay Arndt MD ENTERED: 02/17/25 SP TYPE: Surgical OTHR DR: Marjan Sams MD, Andrey MD ORDERED: Gross Micro L4, IHC, Add. immunos, p40, p63, NSCLC Lung bx COMMENTS: Block A sent to [facility] for xT xR Solid Tumor/PD-L1 [...] developed and their performance characteristics determined by [facility]. They have not been cleared or approved by the U.S. Food and Drug Administration (FDA). However, the FDA has determined that such clearance or approval is not necessary. This laboratory is certified under the Clinical Laboratory Improvement Amendments of 1988 (CLIA) as qualified to perform high complexity clinical laboratory testing. Copies To: Marjan Sams MD [address] [phone] Pranay Arndt MD [address] [place] [address] [phone] Yann Fu MD [facility] [address] [place] [phone] ----- ------- Signed (signature on file) Marychuy Moreau 02/18/25 1615 ----- ------- END OF REPORT us Generic External Data Provider LAB CYTOLOGY ORDSee GOYAL Final Result [facility] [address] [place] [phone] * CT Biopsy Lung Left (02/17/2025 10:35 AM EDT) Anatomical Region Laterality Modality Computed Tomogra phy 02/17/2025 10:3 5 AM EDT Narrative 02/17/2025 2:46 PM EDT [address] [address] [address] Scan Report Signed Patient: Tammy Moeller MR#: [id number] : 1965 Acct:[id number] Age/Sex: 59 / F ADM Date: 02/17/25 Loc: [facility] Attending Dr: Yann Fu MD Ordering Physician: Yann Fu MD Date of Service: 02/17/25 Procedure(s): CT biopsy lung LT Accession Number(s): [id number] cc: Marjan Sams MD; Yann Fu MD Report Number: [id number]: Total DLP = 208.00 mGy-cm Reason for [...] 02/17/25 1442 DD/ 1035 TD/TT: 02/17/25 1119 Vitamin Manager: [facility] Procedure Note Donotuseinterpreter, Image - 02/17/[address] [address] [address] Scan Report Signed Patient: Tammy Moeller#: [id number] : 1965Acct:[id number] Age/Sex: 59 / FADM Date: 02/17/25 Loc: .[facility] Attending Dr: Yann Fu MD Ordering Physician: Yann Fu MD Date of Service: 02/17/25 Procedure(s): CT biopsy lung LT Accession Number(s): [id number] cc: Marjan Sams MD; Yann Fu MD Report Number: [id number]: Total DLP = 208.00 mGy-cm Reason for [...] 02/17/25 1442 DD/ 1035 TD/TT: 02/17/25 1119 Vitamin Manager: JASON [facility] External Provider IMG CT PROCEDURES Edited Result - Final * (ABNORMAL) CBC auto differential (02/17/2025 9:50 AM EDT) White Blood Count 4.6(L) 4.8 - 10.8 X10*3/uL [facility] Red Blood Count 3.45(L) 4.20 - 5.50 X10*6/uL [facility] Hemoglobin 10.1(L) 12.0 - 16.0 g/dl [facility] Hematocrit 30.4(L) 37.0 - 47.0 % [facility] Mean Corpuscular Volume 88.1 80.0 - 98.0 fL [facility] Mean Corpuscular Hemoglobin 29.3 27.0 - 33.0 pg [facility] Mean Corpuscular HGB Conc 33.2 31.0 - 35.0 g/dl [facility] Red Cell Distribution Width 18.6(H) 11.0 - 16.0 % [facility] Platelet Count 244 160 - 400 X10*3/uL [facility] Mean Platelet Volume 8.9(L) 9.4 - 12.3 fL [facility] Neutrophils Percent Auto 77.9(H) 45 - 73 % [facility] Imm Gran Pct Auto 0.2 0.0 - 0.4 % [facility] Lymphocytes Percent Auto 16.8(L) 20 - 40 % [facility] Monocytes Percent Auto 4.7 2 - 11 % [facility] Eosinophils Percent Auto 0.4 0 - 4 % [facility] Basophils Percent Auto 0.0 0 - 2 % [facility] NRBC Pct Auto 0.0 0.0 - 0.2 /100WBC [facility] Neutrophils Absolute Auto 3.6 2.0 - 8.3 x10*3/uL [facility] Imm Gran Abs Auto 0.01 0.00 - 0.03 X10*3/uL [facility] Lymphocytes Absolute Auto 0.8(L) 1.2 - 4.9 X10*3/uL [facility] Monocytes Absolute Auto 0.2 0.1 - 1.2 X10*3/uL [facility] Eosinophils Absolute Auto 0.0 0.0 - 0.4 X10*3/uL [facility] Basophils Absolute Auto 0.0 0.0 - 0.2 X10*3/uL [facility] NRBC Abs Auto 0.000 0.0 - 0.012 X10*3/uL [facility] 02/17/2025 9:50 AM EDT 02/17/2025 9:52 AM EDT us Generic External Data Provider LAB BLOOD ORDERAB LES Final Result Performing Organization Address City/State/[facility] Co de Phone Number [facility] [address] [place] [phone] * Prothrombin Time-INR (02/17/2025 9:50 AM EDT) Prothrombin Time 11.5 10.9 - 12.4 SEC [facility] INTERNATIONAL NORM RATIO 1.0 0.9 - 1.1 [facility] Comment:INTERNATIONAL NORMAL IZED RATIO (INR) [...] ORDERAB LES Final Result Performing Organization Address City/[facility]/ZIP Co de Phone Number [facility] [address] [place] [phone] * (ABNORMAL) Basic Metabolic Panel (02/17/2025 9:50 AM EDT) Sodium 142 135 - 145 mmol/L [facility] Potassium 3.8 3.3 - 5.1 mmol/L [facility] Chloride 114(H) 96 - 108 mmol/L [facility] Carbon Dioxide 22 22 - 29 mmol/L [facility] Anion Gap 10(L) 12 - 20 [facility] Urea Nitrogen (BUN) 6(L) 9 - 16 mg/dL [facility] Creatinine, Serum 0.71 0.5 - 1.4 mg/dL [facility] Creatinine Clr Calc Pharmacy 77.6 [facility] Comment:Provided height and weight: 157.48 cm,67.2 kg.eGFR (calculated from the MDRD study equation) and eCrCl(calculated from the Cockcroft-Gault equation) are based ondifferent parameters and may not yield comparable results.If eCrCl result is absurd, please check patient'sheight/weight. Estimated Glomerular Filt Rate >60 [facility] Comment:Chronic Kidney Disea se: Estimated GFR < 60 mL/min/1.58r2Aqbohk Kidney Disease: Estimated GFR < 15 mL/min/1.73m2 Glucose 73 60 - 115 mg/dL [facility] Calcium 8.7 8.4 - 10.2 mg/dL [facility] 02/17/2025 9:50 AM EDT 02/17/2025 9:52 AM EDT us Generic External Data Provider LAB BLOOD ORDERAB LES Final Result [facility] [address] [place] [phone] * CT Lung Screening Low dose (01/24/2025 7:42 PM EDT) Anatomical Region Laterality Modality Lung Computed Tomogra phy 01/24/2025 7:42 PM EDT Narrative 01/24/2025 7:43 PM EDT [address] [address] [address] Scan Report Signed with Addenda Patient: Tammy Moeller MR#: [id number] : 1965 Acct:[id number] Age/Sex: 59 / F ADM Date: 01/23/25 Loc: HO.CT Attending Dr: Magdalene Peoples HIDE CLEANER Ordering Physician: Awa Heredia PA-C Date of Service: 01/23/25 Procedure(s): CT lung screening Accession Number(s): [id number] cc: Marjan Sams MD; Awa Heredia PA-C Report Number: [id number]: Total DLP = 41.00 mGy-cm ADDENDUM This [...] in OV> 01/24/251942 DD/ 41 TD/TT: 01/24/251941 Vitamin Manager: Procedure Note Donotuseinterpreter, Image - 01/27/[address] [address] [address] Scan Report Signed with Addenda Patient: Tammy Moeller#: [id number] : 1965Acct:[id number] Age/Sex: 59 / FADM Date: 01/23/25 Loc: HO.CT Attending Dr: Magdalene Peoples HIDE CLEANER Ordering Physician: Awa Heredia PA-C Date of Service: 01/23/25 Procedure(s): CT lung screening Accession Number(s): [id number] cc: Marjan Sams MD; Awa Heredia PA-C Report Number: [id number]: Total DLP = 41.00 mGy-cm ADDENDUM This [...] in OV> 01/24/251942 DD/ 41 TD/TT: 01/24/251941 Vitamin Manager: [facility] External Provider IMG CT PROCEDURES Edited Result - Final * BI Mammogram Diagnostic Tomosynthesis Bilateral (03/25/2024 2:00 PM EDT) Anatomical Region Laterality Modality Breast Bilateral Mammography 03/25/2024 2:00 PM EDT Narrative 03/25/2024 2:50 PM EDT [facility] [place] [address] Mammography Report Signed Patient: Tammy Moeller MR#: [id number] : 1965 Acct:[id number] Age/Sex: 58 / F ADM Date: 03/25/24 Loc: HO.MAMMO Attending Dr: Marjan Sams MD Ordering Physician: Marjan Sams MD Results: 2B enign Findings Date of Service: 03/25/24 Follow Up: 1 Year From Orig ina Mammogram Procedure(s): MM tomosynthesis diagnostic BI Accession Number(s): [id number] cc: Marjan Sams MD EXAMINATION: MM DIAGNOSTIC [...] 03/25/24 1447 DD/ 1400 TD/TT: 03/25/24 1422 Vitamin Manager: Procedure Note Donotuseinterpreter, Image - 03/25/2024 [facility] [address] [place] [address] Mammography Report Signed Patient: Tammy Moeller#: [id number] : 1965Acct:[id number] Age/Sex: 58 / FADM Date: 03/25/24 Loc: HO.MAMMO Attending Dr: Marjan Sams MD Ordering Physician: Marjan Sams MDResults: 2B enign Findings Date of Service: 03/25/24Follow Up: 1 Year From Orig inal Mammogram Procedure(s): MM tomosynthesis diagnostic BI Accession Number(s): [id number] cc: Marjan Sams MD EXAMINATION: MM DIAGNOSTIC [...] 03/25/24 1447 DD/ 1400 TD/TT: 03/25/24 1422 Vitamin Manager: us Marjan Sams MD IM BI PROCEDURES Final Re sult * HIV-1/2 Antigen and Antibodies, Fourth Generation, with Reflexes (02/13/2024 10:36 AM EDT) HIV AB/AG Nonreactive Nonreactive [facility] Comment:HIV-1 p24 Ag and/or HIV-1/HIV-2 Ab not detected.A test result that is nonreactive does not exclude thepossibility of exposure to or infection with HIV-1 and/orHIV-2. Nonreactive results in this assay for individualswith prior exposure to HIV-1 and/or HIV-2 may be due toantigen and antibody levels that are below the limit ofdetection of this assay.The BO.LTniCoho Data HIV Ag/Ab Combo assay result andsupplemental assay results should be interpreted inconjunction with the patient's clinical presentation,history and other laboratory results. If the results areinconsistent with clinical evidence, additional testing issuggested to confirm the result. Blood Venous blood specimen / Unknown 02/13/2024 10:36 AM EDT 02/13/2024 11:19 AM EDT us Marjan Sams MD LAB BLOOD ORDERABLES Final Result [facility] [address] [place] [address] [phone] * (ABNORMAL) Lipid Panel, Standard (02/13/2024 10:36 AM EDT) Triglycerides 115 <150 mg/dL [facility] Comment:Desirable Triglyceri de: less than 150 mg/dLBorderline High Triglyceride 150-199 mg/dLHigh Triglyceride: 200-499 mg/dLVery High Triglyceride: greater than or equal to 5OO mg/dL Cholesterol 178 <200 mg/dL [facility] Comment:Desirable Cholestero l: less than 200 mg/dLBorderline High Cholesterol: 200-239 mg/dLHigh Cholesterol: greater than 239 mg/dL LDL Cholesterol Calculated 114(H) <100 mg/dL [facility] Comment:Desirable LDL: less than 100 mg/dLNear Optimal/Above Optimal LDL: 110- 129 mg/dLBorderline High LDL: 130-159 mg/dLHigh LDL: 160-189 mg/dLVery High LDL: greater than or equal to 190 mg/dL HDL Cholesterol 41 >40 mg/dL [facility] Comment:Desirable HDL: great er than 40 mg/dL Note: This HDL assay may give artificially low results in patients with liver disease. Blood Venous blood specimen / Unknown 02/13/2024 10:36 AM EDT 02/13/2024 11:19 AM EDT Marjan Sams MD LAB BLOOD ORDERABLES Final Result [facility] [address] [place] [phone] * Thinprep PAP, HPV mRNA E6/E7 RFX HPV 16,18/45, Chlamydia/N. Gonorrhoeae (11/03/2022 12:00 AM EDT) Clinical Information: ROUTINE [facility] LMP: NONE GIVEN [place] Prev. PAP: NONE GIVEN [place] Prev. BX: NO [facility] SOURCE: None given [facility] Statement Of Adequacy: SATISFACTORY FOR EVALUATION [facility] Interpretation/Re sult: [facility] Comment: Negative for intraepithelial lesion or malignancy. Atrophic pattern; predominantly parabasal cells Group Therapist: [employer] Comment: WXW, CT(ASCP) CT Screening Location: [place] [address] (Always Message) [facility] [employer] Comment: EXPLANATORY NOTE: The Pap is a [...] HPV nRNA E6/E7 Not Detected Not Detected [facility] Comment: Methodology: Contract Analyst-Mediated Amplification This assay detects E6/E7 viral messenger RNA (mRNA) from 14 high-risk HPV types (16,18,31,33,35,39,45,51,52,56,58,59,66,68). Cervical sources are required for HPV testing. If a vaginal source from a patient who has had a total hysterectomy with removal of cervix was submitted, please contact the testing laboratory for alternative testing options. For additional information, please refer to http://GroundWork.DataKraft/faq/DFA452s8 (This link if provided for information/ educational purposes only.) Chlamydia trachomatis RNA, TMA, Urogenital NOT DETECTED NOT DETECTED [facility] [place] [employer] Neisseria gonorrhoeae RNA, TMA, Urogenital NOT DETECTED NOT DETECTED [facility] [place] [employer] Comment [facility] [employer] Comment: The analytical performance characteristics of this assay, when used to test SurePath(TM) specimens have been determined by [employer]. The modifications have not been cleared or approved by the FDA. This assay has been validated pursuant to the CLIA regulations and is used for clinical purposes. For additional information, please refer to https://Programeter/faq/YFQ223 (This link is being provided for information/ educational purposes only.) 11/03/2022 11/06/2022 9:1 5 PM EDT Narrative [facility] - 11/09/2022 10:33 AM EDT FASTING: UNKNOWN us Marjan Sams MD LAB PATHOLOGY ORDERABLES F inal Result [facility] [address], [place] [address] [facility] [place] [employer] [address] [place] [address] * Hepatitis C Antibody with Reflex to HCV, RNA, Quantitative, Real-Time PCR (10/31/2022 8:11 AM EDT) Hepatitis C Antibody NON-REACT CHOCO NON-REACT CHOCO [facility] [place] [employer] Index 0.43 <1.00 [facility] [employer] Comment: HCV antibody was non-reactive. There is no laboratory evidence of HCV infection. In most cases, no further action is required. However, if recent HCV exposure is suspected, a test for HCV RNA (test code 67299) is suggested. For additional information please refer to http://Programeter/faq/BHW85s1 (This link is being provided for informational/ educational purposes only.) Blood Venous blood specimen / Unknown 10/31/2022 8:11 AM EDT 10/31/2022 8:11 AM EDT Narrative [facility] - 10/31/2022 9:53 PM EDT FASTING:YES FASTING: YES us Marjan Sams MD LAB BLOOD ORDERABLES Final Result [facility] [address], [place] [address] [facility] [address] [place] [address] * Hm Colonoscopy (03/30/2017 12:40 PM EDT) Historical Provider HEALTH MAINTENANCE Final Result from Last 3 Months or Most Recently Relevant to Health Maintenance Insurance [employer] MEDICARE REPLACEMENT Advance Directives Documents on File Type Date Recorded Patient Turkey Boner Expl anation Advance Directives and Living Will 10/01/2024 12:27 PM HEALTH CARE PROXY Care Teams Pit Steward Relationship Specialty Start Date End Date Marjan Sams MD [address] [place] [address] PCP - General Family Medicine 06/04/18 Esteban Nice MD [address] [place] [address] 402 [place] [address] Rheumatology 05/21/24 Ashley Chanel OD 180 [place] [address] Optometry 05/21/24 Alban Koehler 175 [facility] 110 [place] [address] Podiatry 10/08/24 Sonja Patel MD [address] [place] [phone] Hematology and Oncology 02/26/25 Jack Lyles 299 [facility] 410 [place], [place] 110 Thoracic Surgery 02/26/25 Dea Hewitt MD Rheumatology 10/06/24
--- OUTSIDE RECORDS SUMMARY | 2025-03-19 19:57 | XMS_ITS | Encounter Summary ---
Author Organization [employer] Address [address] [facility] 7t [place] [address] Care Team Providers Care Airport Operations Duty Manager Name Role Phone Marjan Sams MD Primary Care Provider [phone] Esteban Nice MD Unavailable Ashley Chanel OD Unavailable [phone] Alban Koehler Unavailable Sonja Patel MD Unavailable [phone] Jack Lyles Unavailable Reason for Visit * Reason Onset Date Comments PT1 10/09/2024 Encounter Details Date Type Department Care Team (Late st Contact Info) Description 10/09/[address] [facility] [address] [place] [address] [phone] Marjan Sams MD [address] [place], [place] [phone] PT1 Social History Tobacco Use Types Packs/Day [...] Y/N: Yes Provider name or facility name: [address] [place] [address] Escort needed: Y/N: No Do you have a wheelchair: Y/N: No If yes- Manual or electric: N/A Visits: (2x monthly) documented in this encounter Plan of Treatment Upcoming Encounters Date Type Department Care Team (Late st Contact Info) Description 04/06/2025 11:30 AM EST Telemedicine [address] [address] Marjan Sams MD [address] [place] [address] 06/12/2025 10:30 AM EST Clinical Support [address] [address] Viridiana Hernández, KIMBERLY [address] [place] [address] documented as of this encounter Visit Diagnoses Not on filedocumented in this encounter Additional Health Concerns Assessment Noted Time PHQ-9 Depression Total Score: 4 02/13/20 24 9:45 AM EDT documented as of this encounter Care Teams Airport Operations Duty Manager Relationship Specialty Start Date End Date Marjan Sams MD [address] [place] [address] PCP - General Family Medicine 06/04/18 Esteban Nice MD [address] [place] [address] [phone] Rheumatology 05/21/24 Ashley Chanel OD 180 [place] [address] Optometry 05/21/24 Alban Koehler 175 [facility] 110 [place] [address] Podiatry 10/08/24 Sonja Patel MD [address] [place] [phone] Hematology and Oncology 02/26/25 Jack Lyles [address] 110 Thoracic Surgery 02/26/25 Dea Hewitt MD Rheumatology 10/06/24 documented as of this encounter
--- OUTSIDE RECORDS SUMMARY | 2025-03-19 19:57 | XMS_ITS | Encounter Summary ---
Author Organization [employer] Address [address] [facility] 7t [place] [address] Care Team Providers Care Publication Editor Name Role Phone Marjan Sams MD Primary Care Provider [phone] Esteban Nice MD Unavailable Ashley Chanel OD Unavailable [phone] Alban Koehler Unavailable Sonja Patel MD Unavailable [phone] Jack Lyles Unavailable Reason for Visit * Reason Onset Date Comments Med Refill 02/21/2024 Encounter Details Date Type Department Care Team (Late st Contact Info) Description 02/21/2024 Telephone [facility] [address] [place] [phone] Marjan Sams MD 230 [place], [place] [phone] Med Refill Social History Tobacco Use Types [...] 5-325 MG tablet To be sent to: [facility]/pharmacy #[id number] [place], [place] - [address] [place] [address] documented in this encounter Plan of Treatment Upcoming Encounters Date Type Department Care Team (Late st Contact Info) Description 04/06/2025 11:30 AM EST Telemedicine [facility] [address] [place] [phone] Marjan Sams MD [address] [place] [address] 06/12/2025 10:30 AM EST Clinical Support [facility] 230 [place] [address] Viridiana Hernández, KIMBERLY 505 [place] [address] documented as of this encounter Visit Diagnoses Not on filedocumented in this encounter Additional Health Concerns Assessment Noted Time PHQ-9 Depression Total Score: 4 02/13/20 24 9:45 AM EDT documented as of this encounter Care Teams Publication Editor Relationship Specialty Start Date End Date Marjan Sams MD 230 [place] [address] PCP - General Family Medicine 06/04/18 Esteban Nice MD [address] [address] Rheumatology 05/21/24 Ashley Chanel OD 180 [place] [address] Optometry 05/21/24 Alban Koehler 175 [facility] 110 [place] [address] Podiatry 10/08/24 Sonja Patel MD [address] [place] [address] Hematology and Oncology 02/26/25 Jack Lyles 299 [facility] 410 [place], [place] 1104 Thoracic Surgery 02/26/25 Dea Hewitt MD Rheumatology 10/06/24 documented as of this encounter
--- OUTSIDE RECORDS SUMMARY | 2025-03-19 19:57 | XMS_ITS | Encounter Summary ---
Author Organization [employer] Address 75 [facility] 7t [place] [address] Care Team Providers Care Belly Roller Name Role Phone Marjan Sams MD Primary Care Provider +1- [phone] Esteban Nice MD Unavailable Ashley Chanel OD Unavailable [phone] Alban Koehler Unavailable Sonja Patel MD Unavailable [phone] Jack Lyles Unavailable Encounter Details Date Type Department Care Team (Late st Contact Info) Description 03/13/2025 Telephone [facility] MEDICINE [address] [place], [place] [phone] Marjan Sams MD 230 [place], [place] [phone] Social History Tobacco Use Types Packs/Day Years [...] AM EDT documented as of this encounter Functional Status * Over the past 2 weeks, how often have you been bothered by any of the following problems? Question Answer Date of Assessment Author Patient Health Questionnaire-2 Score 0 03/04 11:24 AM EDT Awa Martinez MA * Little interest or pleasure in doing things Answer Date of Assessment Author Not at all 03/13/2025 11:24 AM RADHAT Kalyan Martinez MA * Feeling down, depressed, or hopeless Answer Date of Assessment Author Not at all 03/13/2025 11:24 AM EDT Kalyan Martinez MA * Trouble falling or staying asleep, or sleeping too much Answer Date of Assessment Author Not at all 03/13/2025 11:24 AM EDKalyan Herring MA * Feeling tired or having little energy Answer Date of Assessment Author Not at all 03/13/2025 11:24 AM EDKalyan Herring MA * Poor appetite or overeating Answer Date of Assessment Author Not at all 03/13/2025 11:24 AM Kalyan Cesar MA * Feeling bad about yourself - or that you are a failure or have let yourself or your family down Answer Date of Assessment Author Not at all 03/13/2025 11:24 AM EDKalyan Herring MA * Trouble concentrating on things, such as reading the newspaper or watching television Answer Date of Assessment Author Not at all 03/13/2025 11:24 AM Kalyan Cesar MA * Moving or speaking so slowly that other people could have noticed? Or the opposite - being so fidgety or restless that you have been moving around a lot more than usual. Answer Date of Assessment Author Not at all 03/13/2025 11:24 AM Kalyan Cesar MA * Thoughts that you would be better off or hurting yourself in some way Answer Date of Assessment Author Not at all 03/13/2025 11:24 AM Kalyan Cesar MA * Patient Health Questionnaire-9 Score Answer Date of Assessment Author 0 03/13/2025 11:24 AM Kalyan Cesar MA documented as of this encounter Miscellaneous Notes * Telephone Encounter - Elyse Okeefe RN - 03/19/2025 10:33 AM EDT Telephone call placed to pt. No answer, left v/m. * Telephone Encounter - Marika Rai RN - 03/16/2025 11:51 AM EDT Returned call to pt who is stating that she was told on 03/13/25 by someone at [facility] that she needs to change her insurance to get assistance with STANDARD MACHINE STITCHER hours. Pt had telemedicine visit with Dr. [place] 03/13/25 who asked forms nurses to assist with VILMA being mailed to pt's house. Pt today states she called her insurance company today to change insurance but she is unsure if she obtained new insurance or has to wait until open enrollment. Advised her will speak with forms RN and PCP for clarification. Spoke to PCP in office. Pt's current insurance does not provide for STANDARD MACHINE STITCHER services. Recommends for ptto speak with managed care but to make sure that any new insurance covers current cancer treatment providers (e.g. [facility]). Called pt back to clarify above, no answer, left voicemail to call back [facility]. Will task to call again. * Telephone Encounter - Marjan Sams MD - 03/13/2025 10:01 AM EDT Patient has stage 3 lung cancer and needs a letter for increased or new STANDARD MACHINE STITCHER hours. She is unable tocome in to sign release but has given verbal permission. She would like the letter mailed to her address on file. Thank you.l documented in this encounter Plan of Treatment Upcoming Encounters Date Type Department Care Team (Late st Contact Info) Description 04/06/2025 11:30 AM EST Telemedicine [facility] [address] [place] [address] Marjan Sams MD 230 [place] [address] 06/12/2025 10:30 AM EST Clinical Support [facility] [address] [place] [address] Viridiana Hernández RN 505 [place] [address] documented as of this encounter Visit Diagnoses Not on filedocumented in this encounter Additional Health Concerns Assessment Noted Time PHQ-9 Depression Total Score: 0 03/13/20 11:24 AM EDT documented as of this encounter Care Teams Belly Roller Relationship Specialty Start Date End Date Marjan Sams MD 230 [place] [address] PCP - General Family Medicine 06/04/18 Esteban Nice MD [address] [place] [address] Rheumatology 05/21/24 Ashley Chanel OD 180 [place] [address] Optometry 05/21/24 Alban Koehler 175 [facility] 110 [place] [address] Podiatry 10/08/24 Sonja Patel MD [address] [place] [address] Hematology and Oncology 02/26/25 Jack Lyles 299 [facility] 410 [place], [place] 1104 Thoracic Surgery 02/26/25 Dea Hewitt MD Rheumatology 10/06/24 documented as of this encounter
--- OUTSIDE RECORDS SUMMARY | 2025-03-19 19:57 | XMS_ITS | Encounter Summary ---
Author Organization [employer] Address 75 [facility] 7t [place] [address] Care Team Providers Care Icicle Machine Operator Name Role Phone Marjan Sams MD Primary Care Provider [phone]- [phone] Esteban Nice MD Unavailable Ashley Chanel OD Unavailable [phone] Alban Koehler Unavailable Sonja Patel MD Unavailable [phone] Jack Lyles Unavailable Encounter Details Date Type Department Care Team (Late st Contact Info) Description 02/25/2025 Orders Only [facility] 230 [place] [address] Provider, MD Yoseph Social History Tobacco Use [...] Info) Description 04/06/2025 11:30 AM EST Telemedicine [facility] MEDICINE [address] [place] [address] Marjan Sams MD [address] [place] [address] 06/12/2025 10:30 AM EST Clinical Support [facility] [address] [place] [address] Viridiana Hernández RN 505 [place] [address] documented as of this encounter Procedures Procedure [...] documented as of this encounter Care Teams Icicle Machine Operator Relationship Specialty Start Date End Date Marjan Sams MD 230 [place] [address] PCP - General Family Medicine 06/04/18 Esteban Nice MD [address] 402 [place] [address] Rheumatology 05/21/24 Ashley Chanel OD 180 [place] [address] Optometry 05/21/24 Alban Koehler 175 [facility] 110 [place] [address] Podiatry 10/08/24 Sonja Patel MD 575 [place] [address] Hematology and Oncology 02/26/25 Jack Lyles [address] [facility] 410 [place], [place] 1104 Thoracic Surgery 02/26/25 Dea Hewitt MD Rheumatology 10/06/24 documented as of this encounter
--- OUTSIDE RECORDS SUMMARY | 2025-03-19 19:57 | XMS_ITS | Encounter Summary ---
Author Organization [employer] Address 75 [facility] 7t [place] [address] Care Team Providers Care Rug Backing Stenciler Name Role Phone Marjan Sams MD Primary Care Provider [phone]- [phone] Esteban Nice MD Unavailable Ashley Chanel OD Unavailable [phone] Alban Koehler Unavailable Sonja Patel MD Unavailable [phone] Jack Lyles Unavailable Reason for Visit * Reason Onset Date Comments Uber Set-up 01/23/2024 Encounter Details Date Type Department Care Team (Late st Contact Info) Description 01/23/2024 Telephone [facility] MEDICINE [address] [place] [address] Marjan Sams MD 230 [place], [place] [phone] Uber Set-up Social History Tobacco Use Types [...] request a uber set-up for 01/29 appt group underwriter did confirm address and call back number documented in this encounter Plan of Treatment Upcoming Encounters Date Type Department Care Team (Late st Contact Info) Description 04/06/2025 11:30 AM EST Telemedicine [facility] MEDICINE [address] [place] [address] Marjan Sams MD [address] [place] [address] 06/12/2025 10:30 AM EST Clinical Support [facility] MEDICINE [address] [place] [address] Viridiana Hernández RN 505 [place] [address] documented as of this encounter Visit Diagnoses Not on filedocumented in this encounter Additional Health Concerns Assessment Noted Time PHQ-9 Depression Total Score: 0 11/04/19 23 10:28 AM EDT documented as of this encounter Care Teams Rug Backing Stenciler Relationship Specialty Start Date End Date Marjan Sams MD 230 [place] [address] PCP - General Family Medicine 06/04/18 Esteban Nice MD [address] [place] [address] Rheumatology 05/21/24 Ashley Chanel OD 180 [place] [address] Optometry 05/21/24 Alban Koehler 175 [facility] 110 [place] [address] Podiatry 10/08/24 Sonja Patel MD [address] [place] [address] Hematology and Oncology 02/26/25 Jack Lyles [address] [facility] 410 [place], [place] 1104 Thoracic Surgery 02/26/25 Dea Hewitt MD Rheumatology 10/06/24 documented as of this encounter
--- OUTSIDE RECORDS SUMMARY | 2025-03-19 19:57 | XMS_ITS | Encounter Summary ---
Author Organization [employer] Address 75 [facility] 7t [place] [address] Care Team Providers Care Environmental Professional Name Role Phone Marjan Sams MD Primary Care Provider [phone]- [phone] Esteban Nice MD Unavailable Ashley Chanel OD Unavailable [phone] Alban Koehler Unavailable Sonja Patel MD Unavailable Jack Lyles Unavailable Reason for Visit * Reason Onset Date Comments pt1 03/17/2025 Encounter Details Date Type Department Care Team (Late st Contact Info) Description 03/17/2025 Telephone [facility] MEDICINE [address] [place] [phone] Marjan Sams MD 230 [place], [place] [phone] pt1 Social History Tobacco Use Types Packs/Day Years [...] * Telephone Encounter - Patricia Dumont - 03/17/2025 8:53 AM EDT Patient calling requesting PT1 Home Address verified: Y/N: Yes Provider name or facility name: [address] [address] Escort needed: Y/N: Yes Do you have a wheelchair: Y/N: No If yes- Manual or electric: Visits: 5x documented in this encounter Plan of Treatment Upcoming Encounters Date Type Department Care Team (Late st Contact Info) Description 04/06/2025 11:30 AM EST Telemedicine [address] [address] Marjan Sams MD 230 [place] [address] 06/12/2025 10:30 AM EST Clinical Support [address] [address] Viridiana Hernández, KIMBERLY 505 [place] [address] documented as of this encounter Visit Diagnoses Not on filedocumented in this encounter Additional Health Concerns Assessment Noted Time PHQ-9 Depression Total Score: 0 03/13/20 11:24 AM EDT documented as of this encounter Care Teams Environmental Professional Relationship Specialty Start Date End Date Marjan Sams MD 230 [place] [address] PCP - General Family Medicine 06/04/18 Esteban Nice MD [address] [place] [address] Rheumatology 05/21/24 Ashley Chanel OD 180 [place] [address] Optometry 05/21/24 Alban Koehler 175 [facility] 110 [place] [address] Podiatry 10/08/24 Sonja Patel MD [address] [place] [address] Hematology and Oncology 02/26/25 Jack Lyles [address] 110 Thoracic Surgery 02/26/25 Dea Hewitt MD Rheumatology 10/06/24 documented as of this encounter
--- OUTSIDE RECORDS SUMMARY | 2025-03-19 19:57 | XMS_ITS | Encounter Summary ---
Author Organization [employer] Address 75 [facility] 7t [place] [address] Care Team Providers Care Internal Audit Consultant Name Role Phone Marjan Sams MD Primary Care Provider [phone]- [phone] Esteban Nice MD Unavailable Ashley Chanel OD Unavailable [phone] Alban Koehler Unavailable Sonja Patel MD Unavailable [phone] Jack Lyles Unavailable Reason for Visit * Reason Onset Date Comments Med Refill 01/19/2023 Encounter Details Date Type Department Care Team (Late st Contact Info) Description 01/19/2023 Telephone [facility] MEDICINE [address] [place] [address] Marjan Sams MD 230 [place], [place] [phone] Med Refill Social History Tobacco Use Types [...] (Percocet) 5-325 MG tablet Please sent to [facility]/pharmacy #[id number] - [place] - [address] [facility] documented in this encounter Plan of Treatment Upcoming Encounters Date Type Department Care Team (Late st Contact Info) Description 04/06/2025 11:30 AM EST Telemedicine [address] [address] Marjan Sams MD [address] [place] [address] 06/12/2025 10:30 AM EST Clinical Support [address] [address] Viridiana Hernández, RN 505 [place] [address] documented as of this encounter Visit Diagnoses Not on filedocumented in this encounter Additional Health Concerns Assessment Noted Time PHQ-9 Depression Total Score: 0 11/04/19 23 10:28 AM EDT documented as of this encounter Care Teams Internal Audit Consultant Relationship Specialty Start Date End Date Marjan Sams MD [address] [place] [address] PCP - General Family Medicine 06/04/18 Esteban Nice MD [address] [place] [address] Rheumatology 05/21/24 Ashley Chanel OD 180 [place] [address] Optometry 05/21/24 Alban Koehler [address] [address] Podiatry 10/08/24 Sonja Patel MD [address] [place] [address] Hematology and Oncology 02/26/25 Jack Lyles [address] [place] [address] 410 [place], [place] 110 Thoracic Surgery 02/26/25 Dea Hewitt MD Rheumatology 10/06/24 documented as of this encounter
--- OUTSIDE RECORDS SUMMARY | 2025-03-19 19:57 | XMS_ITS | Clinical Summary ---
Author Organization 175 [facility] Address 175 [place] [address] Phone Care Team Providers Care Advertising Columnist Name Role Phone AlexisElizabeth curran Primary Care Provider +1- [phone] Allergies No known active allergies Encounters Date Type Department Care Team Description 02/24/2025 8:43 AM EDT - 02/24/2025 11:59 PM EDT Hospital Encounter [facility] PET Scan [address] [place] [address] Abnormal radiologic finding of lung [...] 1966 Cervical Cancer Screening: Pap Smear 1987 RSV Immunization Adult Patients (1 - Risk 50-74 years 1-dose series) 2016 Depression Screening 06/04/2024 Medicare Annual Wellness Visit 10/02/2024 Social Influencers of Health Screening 10/02/2024 COVID-19 Vaccine ( season) 2025 06/25/2023, 07/31/2022 Influenza Vaccine (#1) [...] Signed Date: 02/24/2025 12:37 ET Workstation ID: [id number] Transcribed By: Self Edit Transcribed Date: 02/24/2025 [...] Signed Date: 02/24/2025 12:37 ET Workstation ID: [id number] Transcribed By: Self Edit Transcribed Date: 02/24/2025 12:20 ET us Yann Fu MD IMG NM PROCEDURES Final Result from Last 3 Months Insurance [employer] MEDICARE ADVANTAGE MEDICAID - [place] Care Teams Advertising Columnist Relationship Specialty Start Date End Date Elizabeth Ly DO [address] [place] [address] PCP - General Family Medicine 10/02/24
--- OUTSIDE RECORDS SUMMARY | 2025-03-19 19:57 | XMS_ITS | Encounter Summary ---
Author Organization [employer] Address 75 [facility] 7t [place] [address] Care Team Providers Care Punchboard Stuffer Name Role Phone Marjan Sams MD Primary Care Provider [phone]- [phone] Esteban Nice MD Unavailable Ashley Chanel OD Unavailable [phone] Alban Koehler Unavailable Sonja Patel MD Unavailable [phone] Jack Lyles Unavailable Reason for Visit * Reason Onset Date Comments Med Refill 03/17/2025 Encounter Details Date Type Department Care Team (Late st Contact Info) Description 03/17/2025 Refill [facility] 505 [place] [address] Marjan Sams MD [address] [place] [address] Arthritis of both knees Social History Tobacco [...] Telephone Encounter - Elyse Okeefe RN - 03/17/2025 3:55 PM EDT MANAGER OFFICE checked. Pt last picked up 28 day supply of percocet 02/20/25. Earliest fill date is Sunday03/22/25. Pt last saw [employer] PAVER OPERATOR 02/20/25. Refill appropriate and PCP in office tomorrow. Queued. documented in this encounter Plan of Treatment Upcoming Encounters Date Type Department Care Team (Late st Contact Info) Description 04/06/2025 11:30 AM EST Telemedicine [address] [address] Marjan Sams MD 230 [place] [address] 06/12/2025 10:30 AM EST Clinical Support [address] [address] Viridiana Hernández RN 505 [place] [address] documented as of this encounter Visit Diagnoses Diagnosis Arthritis of both knees documented in this encounter Additional Health Concerns Assessment Noted Time PHQ-9 Depression Total Score: 0 03/13/20 11:24 AM EDT documented as of this encounter Care Teams Punchboard Stuffer Relationship Specialty Start Date End Date Marjan Sams MD [address] [place] [address] PCP - General Family Medicine 06/04/18 Esteban Nice MD [address] [place] [address] Rheumatology 05/21/24 Ashley Chanel OD 180 [place] [address] Optometry 05/21/[address] 175 [facility] 110 [place] [address] Podiatry 10/08/24 Sonja Patel MD [address] [place] [address] Hematology and Oncology 02/26/25 Jack Lyles [address] 110 Thoracic Surgery 02/26/25 Dea Hewitt MD Rheumatology 10/06/24 documented as of this encounter
--- OUTSIDE RECORDS SUMMARY | 2025-03-19 19:57 | XMS_ITS | Encounter Summary ---
Author Organization [employer] Address 75 [facility] 7t [place] [address] Care Team Providers Care Manager Card Name Role Phone Marjan Sams MD Primary Care Provider [phone]- [phone] Esteban Nice MD Unavailable Ashley Chanel OD Unavailable [phone] Alban Koehler Unavailable Sonja Patel MD Unavailable [phone] Jack Lyles Unavailable Reason for Visit * Reason Comments Med Refill Encounter Details Date Type Department Care Team (Late st Contact Info) Description 07/25/2023 Refill [facility] MEDICINE 230 [place], [place] [phone] Marjan Sams MD 230 [place], [place] [phone] Arthritis of both knees Social History Tobacco [...] the past 12 months, has t he [employer] oil or water company threatened to shut [...] Info) Description 04/06/2025 11:30 AM EST Telemedicine [address] [address] Marjan Sams MD [address] [place] [address] 06/12/2025 10:30 AM EST Clinical Support [address] [address] Viridiana Hernández RN 505 [place] [address] documented as of this encounter Visit Diagnoses Diagnosis Arthritis of both knees documented in this encounter Additional Health Concerns Assessment Noted Time PHQ-9 Depression Total Score: 0 11/04/19 23 10:28 AM EDT documented as of this encounter Care Teams Manager Card Relationship Specialty Start Date End Date Marjan Sams MD [address] [place] [address] PCP - General Family Medicine 06/04/18 Esteban Nice MD [address] [place] [address] Rheumatology 05/21/24 Ashley Chanel OD 180 [place] [address] Optometry 05/21/24 Alban Koehler 175 [facility] 110 [place] [address] Podiatry 10/08/24 Sonja Patel MD [address] [place] [address] Hematology and Oncology 02/26/25 Jack Lyles 299 [facility] 410 [place], [place] 110 Thoracic Surgery 02/26/25 Dea Hewitt MD Rheumatology 10/06/24 documented as of this encounter
--- OUTSIDE RECORDS SUMMARY | 2025-03-19 19:57 | XMS_ITS | Encounter Summary ---
Author Organization [employer] Address 75 [facility] 7t [place] [address] Care Team Providers Care Evaporator Helper Name Role Phone Marjan Sams MD Primary Care Provider [phone]- [phone] Esteban Nice MD Unavailable Ashley Chanel OD Unavailable [phone] Alban Koehler Unavailable Sonja Patel MD Unavailable [phone] Jack Lyles Unavailable Reason for Visit * Reason Comments Care Coordination CHW outreach for SDO H PT-1 and food needs-referral completed Encounter Details Date Type Department Care Team (Latest Contact Info) Description 03/17/2025 Patient Outreach [facility] MEDICINE [address] [place] [address] [phone] Marjan Sams MD 230 [place], [place] [phone] Care Coordination (CHW outreach for SDOH PT-1 [...] encounter Progress Notes * Sae Kwon - 03/17/2025 10:22 AM EDT CHW Sae Kwon placed outbound call to patient for assistance [...] Wednesdays, and Walk-In Urgent Care Located in [facility]. Patient provided with after-hours line for [facility], , which offer night time triage service and option to transfer to adult education professional provider if needed. documented in this encounter Plan of Treatment Upcoming Encounters Date Type Department Care Team (Late st Contact Info) Description 04/06/2025 11:30 AM EST Telemedicine [address] [address] Marjan Sams MD [address] [place] [address] 06/12/2025 10:30 AM EST Clinical Support [address] [address] Viridiana Hernández, RN 505 [place] [address] documented as of this encounter Visit Diagnoses Not on filedocumented in this encounter Additional Health Concerns Assessment Noted Time PHQ-9 Depression Total Score: 0 03/13/20 25 11:24 AM EDT documented as of this encounter Care Teams Evaporator Helper Relationship Specialty Start Date End Date Marjan aSms MD [address] [place] [address] PCP - General Family Medicine 06/04/18 Esteban Nice MD [address] [place] [address] Rheumatology 05/21/24 Ashley Chanel OD 180 [place] [address] Optometry 05/21/24 Alban Koehler 175 [facility] 110 [place] [address] Podiatry 10/08/24 Sonja Patel MD [address] [place] [address] Hematology and Oncology 02/26/25 Jack Lyles 299 [facility] 410 [place], [place] 1104 Thoracic Surgery 02/26/25 Dea Hewitt MD Rheumatology 10/06/24 documented as of this encounter
--- OUTSIDE RECORDS SUMMARY | 2025-03-19 19:57 | XMS_ITS | Encounter Summary ---
Author Organization [employer] Address 75 [facility] 7t [place] [address] Care Team Providers Care Vocational Psychologist Name Role Phone Marjan Sams MD Primary Care Provider +1- [phone] Esteban Nice MD Unavailable Ashley Chanel OD Unavailable [phone] Alban Koehler Unavailable Sonja Patel MD Unavailable [phone] Jack Lyles Unavailable Reason for Visit * Reason Onset Date Comments Med Refill 10/20/2024 Encounter Details Date Type Department Care Team (Late st Contact Info) Description 10/20/2024 Refill [facility] 505 [place], [place] [phone] Marjan Sams MD [address] [place] [address] Arthritis of both knees Social History Tobacco [...] Info) Description 04/06/2025 11:30 AM EST Telemedicine [facility] [address] [place] [address] Marjan Sams MD [address] [place] [address] 06/12/2025 10:30 AM EST Clinical Support [address] [address] Viridiana Hernández RN 505 [place] [address] documented as of this encounter Visit Diagnoses Diagnosis Arthritis of both knees documented in this encounter Additional Health Concerns Assessment Noted Time PHQ-9 Depression Total Score: 4 02/13/20 24 9:45 AM EDT documented as of this encounter Care Teams Vocational Psychologist Relationship Specialty Start Date End Date Marjan Sams MD 230 [place] [address] PCP - General Family Medicine 06/04/18 Esteban Nice MD [address] [place] [address] 402 [place] [address] Rheumatology 05/21/24 Ashley Chanel OD 180 [place] [address] Optometry 05/21/24 Alban Koehler 175 [facility] 110 [place] [address] Podiatry 10/08/24 Sonja Patel MD [address] [place] [address] Hematology and Oncology 02/26/25 Jack Lyles 299 [facility] [place] [facility] 410 [place], [place] 110 Thoracic Surgery 02/26/25 Dea Hewitt MD Rheumatology 10/06/24 documented as of this encounter
--- OUTSIDE RECORDS SUMMARY | 2025-03-19 19:57 | XMS_ITS | Encounter Summary ---
Author Organization [employer] Address 75 [facility] 7t [place] [address] Care Team Providers Care Hair Assistant Name Role Phone Marjan Sams MD Primary Care Provider +1- [phone] Esteban Nice MD Unavailable Ashley Chanel OD Unavailable [phone] Alban Koehler Unavailable Sonja Patel MD Unavailable [phone] Jack Lyles Unavailable Reason for Visit * Reason Onset Date Comments Call Back Request 03/16/2025 Encounter Details Date Type Department Care Team (Late st Contact Info) Description 03/16/2025 Telephone [facility] [address] [place] [address] Marjan Sams MD 230 [place], [place] [phone] Call Back Request Social History Tobacco Use [...] Encounter - Marika Rai RN - 03/16/2025 12:05 PM EDT Duplicate, please see encounter dated 03/13/25. * Telephone Encounter - Josef Cui - 03/16/2025 9:21 AM EDT Tc from pt requesting a call back stating its in regards to ins and she had discussed this with pcpduring last OV. Pt did not elaborate further and just requested to speak with a nurse. Please contact pt at [phone]. documented in this encounter Plan of Treatment Upcoming Encounters Date Type Department Care Team (Late st Contact Info) Description 04/06/2025 11:30 AM EST Telemedicine [address] [address] Marjan Sams MD [address] [place] [address] 06/12/2025 10:30 AM EST Clinical Support [address] [address] Viridiana Hernández RN 505 [place] [address] documented as of this encounter Visit Diagnoses Not on filedocumented in this encounter Additional Health Concerns Assessment Noted Time PHQ-9 Depression Total Score: 0 03/13/20 11:24 AM EDT documented as of this encounter Care Teams Hair Assistant Relationship Specialty Start Date End Date Marjan Sams MD [address] [place] [address] PCP - General Family Medicine 06/04/18 Esteban Nice MD [address] [place] [address] Rheumatology 05/21/24 Ashley Chanel OD [address] [place] [address] Optometry 05/21/24 Alban Koehler [address] [address] Podiatry 10/08/24 Sonja Patel MD [address] [place] [address] Hematology and Oncology 02/26/25 Jakc Lyles 299 [place] [address] Thoracic Surgery 02/26/25 Dea Hewitt MD Rheumatology 10/06/24 documented as of this encounter
--- OUTSIDE RECORDS SUMMARY | 2025-03-19 19:57 | XMS_ITS | Encounter Summary ---
Author Organization [employer] Address 75 [facility] 7t [place] [address] Care Team Providers Care Heel Attacher Name Role Phone Marjan Sams MD Primary Care Provider +1- [phone] Esteban Nice MD Unavailable Ashley Chanel OD Unavailable [phone] Alban Koehler Unavailable Sonja Patel MD Unavailable [phone] Jack Lyles Unavailable Reason for Visit * Reason Onset Date Comments Call Back Request 10/14/2024 Encounter Details Date Type Department Care Team (Late st Contact Info) Description 10/14/2024 Telephone [facility] [address] [place] [address] Marjan Sams MD 230 [place] [address] Call Back Request (/) Social History Tobacco [...] RN - 10/14/2024 12:04 PM EDT Called [facility] Centralized scheduling who said that the pt has a DEXA scan scheduled for 10/29/24 but noultrasounds today or otherwise. Nothing noted in chart. Called pt and informed her of this, pt unaware of US ordered by specialist. Advised her if anything else comes up regarding this will let her know. Pt verbalized understanding. Business Unit Manager found note in chart from xray of the spine ordered by Dr Koehler (podiatry) that recommended follow up Vascular US abdominal aorta aneurysm (AAA) screening. Called pt back to advise of this and gave her phone number to call to clarify with Dr Koehler and to reschedule. [phone] . Pt verbalized understanding, to call that [...] Description 04/06/2025 11:30 AM EST Telemedicine [address] [address] Marjan Sams MD [address] [place] [address] 06/12/2025 10:30 AM EST Clinical Support [address] [address] Viridiana Hernández, KIMBERLY 505 [place] [address] documented as of this encounter Visit Diagnoses Not on filedocumented in this encounter Additional Health Concerns Assessment Noted Time PHQ-9 Depression Total Score: 4 02/13/20 24 9:45 AM EDT documented as of this encounter Care Teams Heel Attacher Relationship Specialty Start Date End Date Marjan Sams MD [address] [place] [address] PCP - General Family Medicine 06/04/18 Esteban Nice MD [address] [place] [address] Rheumatology 05/21/24 Ashley Chanel OD 180 [place] [address] Optometry 05/21/24 Alban Koehler 175 [facility] 110 [place] [address] Podiatry 10/08/24 Sonja Patel MD [address] [place] [address] Hematology and Oncology 02/26/25 Jack Lyles [address] 1104 Thoracic Surgery 02/26/25 Dea Hewitt MD Rheumatology 10/06/24 documented as of this encounter
--- OUTSIDE RECORDS SUMMARY | 2025-03-19 19:57 | XMS_ITS | Encounter Summary ---
Author Organization [employer] Address 75 [facility] 7t [place] [address] Care Team Providers Care Manager Leasing Name Role Phone Marjan Sams MD Primary Care Provider +1- [phone] Esteban Nice MD Unavailable Ashley Chanel OD Unavailable [phone] Alban Koehler Unavailable Sonja Patel MD Unavailable [phone] Jack Lyles Unavailable Reason for Visit * Reason Onset Date Comments Med Refill 02/19/2023 Encounter Details Date Type Department Care Team (Late st Contact Info) Description 02/19/2023 Telephone [facility] [address] [place] [address] Marjan Sams MD 230 [place], [place] [phone] Med Refill Social History Tobacco Use Types [...] Info) Description 04/06/2025 11:30 AM EST Telemedicine [address] [address] Marjan Sams MD [address] [place] [address] 06/12/2025 10:30 AM EST Clinical Support [address] [address] Viridiana Hernández RN 505 [place], [place] [phone] documented as of this encounter Visit Diagnoses Not on filedocumented in this encounter Additional Health Concerns Assessment Noted Time PHQ-9 Depression Total Score: 0 11/04/19 23 10:28 AM EDT documented as of this encounter Care Teams Manager Leasing Relationship Specialty Start Date End Date Marjan Sams MD [address] [place] [address] PCP - General Family Medicine 06/04/18 Esteban Nice MD [address] [place] [address] [place] [address] Rheumatology 05/21/24 Ashley Chanel OD 180 [place] [address] Optometry 05/21/24 Alban Koehler [address] [address] Podiatry 10/08/24 Sonja Patel MD [address] [place] [address] Hematology and Oncology 02/26/25 Jack Lyles [address] [place] [address] Thoracic Surgery 02/26/25 Dea Hewitt MD Rheumatology 10/06/24 documented as of this encounter
--- OUTSIDE RECORDS SUMMARY | 2025-03-19 19:57 | XMS_ITS | Encounter Summary ---
Author Organization [employer] Address 75 [facility] 7t [place] [address] Care Team Providers Care Icu Clerk Name Role Phone Marjan Sams MD Primary Care Provider +1- [phone] Esteban Nice MD Unavailable Ashley Chanel OD Unavailable [phone] Alban Koehler Unavailable Sonja Patel MD Unavailable [phone] Jack Lyles Unavailable Reason for Visit * Reason Comments Med Refill Encounter Details Date Type Department Care Team (Late st Contact Info) Description 02/10/2025 Refill [facility] 230 [place] [address] Marjan Sams MD 230 [place] [address] Tobacco dependence syndrome Social History Tobacco Use [...] Info) Description 04/06/2025 11:30 AM EST Telemedicine [facility] [address] [place] [address] Marjan Sams MD [address] [place] [address] 06/12/2025 10:30 AM EST Clinical Support [facility] [address] [place] [address] Viridiana Hernández RN 505 [place] [address] documented as of this encounter Visit Diagnoses Diagnosis Tobacco dependence syndrome Tobacco use disorder documented in this encounter Additional Health Concerns Assessment Noted Time PHQ-9 Depression Total Score: 4 02/13/20 24 9:45 AM EDT documented as of this encounter Care Teams Icu Clerk Relationship Specialty Start Date End Date Marjan Sams MD 230 [place] [address] PCP - General Family Medicine 06/04/18 Esteban Nice MD [address] [address] Rheumatology 05/21/24 Ashley Chanel OD 180 [place] [address] Optometry 05/21/24 Alban Koehler 175 [facility] 110 [place] [address] Podiatry 10/08/24 Sonja Patel MD [address] [place] [address] Hematology and Oncology 02/26/25 Jack Lyles 299 [facility] 410 [place], [place] 1104 Thoracic Surgery 02/26/25 Dea Hewitt MD Rheumatology 10/06/24 documented as of this encounter
--- OUTSIDE RECORDS SUMMARY | 2025-03-19 19:57 | XMS_ITS | Encounter Summary ---
Author Organization [employer] Address 75 [facility] 7t [place] [address] Care Team Providers Care Numerical Control Drill Press Operator Name Role Phone Marjan Sams MD Primary Care Provider +1- [phone] Esteban Nice MD Unavailable Ashley Chanel OD Unavailable [phone] Alban Koehler Unavailable Sonja Patel MD Unavailable [phone] Jack Lyles Unavailable Reason for Visit * Reason Onset Date Comments Med Refill 01/21/2024 Encounter Details Date Type Department Care Team (Late st Contact Info) Description 01/21/2024 Telephone [facility] [address] [place] [address] [phone] Marjan Sams MD 230 [place], [place] [phone] Med Refill Social History Tobacco Use Types [...] the past 12 months, has t he [employer], gas, oil or water company threatened to [...] 5-325 MG tablet To be sent to: [facility] documented in this encounter Plan of Treatment Upcoming Encounters Date Type Department Care Team (Late st Contact Info) Description 04/06/2025 11:30 AM EST Telemedicine [facility] [address] [place] [address] Marjan Sams MD 230 [place] [address] 06/12/2025 10:30 AM EST Clinical Support [facility] [address] [place] [address] Viridiana Hernández RN 505 [place] [address] documented as of this encounter Visit Diagnoses Not on filedocumented in this encounter Additional Health Concerns Assessment Noted Time PHQ-9 Depression Total Score: 0 11/04/19 23 10:28 AM EDT documented as of this encounter Care Teams Numerical Control Drill Press Operator Relationship Specialty Start Date End Date Marjan Sams MD 230 [place] [address] PCP - General Family Medicine 06/04/18 Esteban Nice MD [address] [place] [address] Rheumatology 05/21/24 Ashley Chanel OD 180 [place] [address] Optometry 05/21/24 Alban Koehler 175 [facility] 110 [place] [address] Podiatry 10/08/24 Sonja Patel MD [address] [place] [address] Hematology and Oncology 02/26/25 Jack Lyles 299 [facility] 410 [place], [place] 1104 Thoracic Surgery 02/26/25 Dea Hewitt MD Rheumatology 10/06/24 documented as of this encounter
--- OUTSIDE RECORDS SUMMARY | 2025-03-19 19:57 | XMS_ITS | Encounter Summary ---
Author Organization [employer] Address 75 [facility] 7t [place] [address] Care Team Providers Care Director Of Promotions Name Role Phone Marjan Sams MD Primary Care Provider +1- [phone] Esteban Nice MD Unavailable Ashley Chanel OD Unavailable [phone] Alban Koehler Unavailable Sonja Patel MD Unavailable [phone] Jack Lyles Unavailable Encounter Details Date Type Department Care Team (Late st Contact Info) Description 06/29/[address] [facility] [address] [place] [address] [phone] Marjan Sams MD [address] [place] [address] [phone] Social History Tobacco Use Types Packs/Day Years [...] Info) Description 04/06/2025 11:[address] [facility] [address] [place] [address] [phone] Marjan Sams MD [address] [place] [address] 06/12/2025 10:30 AM EST Clinical Support [facility] 230 [place] [address] Viridiana Hernández, KIMBERLY [address] [place] [address] documented as of this encounter Procedures Procedure [...] on filedocumented in this encounter Care Teams Director Of Promotions Relationship Specialty Start Date End Date Marjan Sams MD 230 [place] [address] PCP - General Family Medicine 06/04/18 Esteban Nice MD [address] [place] [address] Rheumatology 05/21/24 Ashley Chanel OD 180 [place] [address] Optometry 05/21/24 Alban Koehler [address] [address] Podiatry 10/08/24 Sonja Patel MD [address] [place] [address] Hematology and Oncology 02/26/25 Jack Lyles [address] [place] [address] Thoracic Surgery 02/26/25 Dea Hewitt MD Rheumatology 10/06/24 documented as of this encounter
--- OUTSIDE RECORDS SUMMARY | 2025-03-19 19:57 | XMS_ITS | Encounter Summary ---
Author Organization [employer] Address 75 [facility] 7t [place] [address] Care Team Providers Care Fitting Room Associate Name Role Phone Marjan Sams MD Primary Care Provider +1- [phone] Esteban Nice MD Unavailable Ashley Chanel OD Unavailable Alban Koehler Unavailable Sonja Patel MD Unavailable [phone] Jack Lyles Unavailable Reason for Visit * Reason Onset Date Comments Med Refill 10/17/2024 Encounter Details Date Type Department Care Team (Late st Contact Info) Description 10/17/2024 Telephone [facility] [address] [place] [address] [phone] Marjan Sams MD 230 [place], [place] [phone] Med Refill Social History Tobacco Use Types [...] 5-325 MG tablet To be sent to: [facility]/pharmacy #[id number] - [place], [place] - [address] [place] [address] documented in this encounter Plan of Treatment Upcoming Encounters Date Type Department Care Team (Late st Contact Info) Description 04/06/2025 11:30 AM EST Telemedicine [address] [address] Marjan Sams MD 230 [place] [address] 06/12/2025 10:30 AM EST Clinical Support [address] [address] Viridiana Hernández, KIMBERLY 505 [place] [address] documented as of this encounter Visit Diagnoses Not on filedocumented in this encounter Additional Health Concerns Assessment Noted Time PHQ-9 Depression Total Score: 4 02/13/20 24 9:45 AM EDT documented as of this encounter Care Teams Fitting Room Associate Relationship Specialty Start Date End Date Marjan Sams MD [address] [place] [address] PCP - General Family Medicine 06/04/18 Esteban Nice MD [address] [place] [address] Rheumatology 05/21/24 Ashley Chanel OD 180 [place] [address] Optometry 05/21/24 Alban Koehler 175 [facility] 110 [place] [address] Podiatry 10/08/24 Sonja Patel MD [address] [place] [address] Hematology and Oncology 02/26/25 Jack Lyles [address] 110 Thoracic Surgery 02/26/25 Dea Hewitt MD Rheumatology 10/06/24 documented as of this encounter
--- OUTSIDE RECORDS SUMMARY | 2025-03-19 19:57 | XMS_ITS | Encounter Summary ---
Author Organization [employer] Address 75 [facility] 7t [place] [address] Care Team Providers Care Roof Bolter Helper Name Role Phone Marjan Sams MD Primary Care Provider +1- [phone] Esteban Nice MD Unavailable Ashley Chanel OD Unavailable [phone] Alban Koehler Unavailable Sonja Patel MD Unavailable [phone] Jack Lyles Unavailable Reason for Visit * Reason Onset Date Comments Med Refill 08/20/2024 Encounter Details Date Type Department Care Team (Late st Contact Info) Description 08/20/2024 Telephone [facility] [address] [place] [address] [phone] Marjan Sams MD 230 [place], [place] [phone] Med Refill Social History Tobacco Use Types [...] 5-325 MG tablet To be sent to: [facility]/pharmacy #[id number] [place], [place] - [address] [place] [address] documented in this encounter Plan of Treatment Upcoming Encounters Date Type Department Care Team (Late st Contact Info) Description 04/06/2025 11:30 AM EST Telemedicine [facility] [address] [place] [address] Marjan Sams MD [address] [place] [address] 06/12/2025 10:30 AM EST Clinical Support [facility] 230 [place] [address] Viridiana Hernández, KIMBERLY 505 [place] [address] documented as of this encounter Visit Diagnoses Not on filedocumented in this encounter Additional Health Concerns Assessment Noted Time PHQ-9 Depression Total Score: 4 02/13/20 24 9:45 AM EDT documented as of this encounter Care Teams Roof Bolter Helper Relationship Specialty Start Date End Date Marjan Sams MD 230 [place] [address] PCP - General Family Medicine 06/04/18 Esteban Nice MD [address] [address] Rheumatology 05/21/24 Ashley Chanel OD 180 [place] [address] Optometry 05/21/24 Alban Koehler 175 [facility] 110 [place] [address] Podiatry 10/08/24 Sonja Patel MD [address] [place] [address] Hematology and Oncology 02/26/25 Jack Lyles 299 [facility] 410 [place], [place] 1104 Thoracic Surgery 02/26/25 Dea Hewitt MD Rheumatology 10/06/24 documented as of this encounter
--- OUTSIDE RECORDS SUMMARY | 2025-03-19 19:57 | XMS_ITS | Encounter Summary ---
Author Organization [employer] Address 75 [facility] 7t [place] [address] Care Team Providers Care Digital Account Coordinator Name Role Phone Marjan Sams MD Primary Care Provider +- [phone] Esteban Nice MD Unavailable Ashley Chanel OD Unavailable [phone] Alban Koehler Unavailable Sonja Patel MD Unavailable [phone] aJck Lyles Unavailable Encounter Details Date Type Department Care Team (Late st Contact Info) Description 03/22/2023 Abstract [facility] 230 [place], [place] [phone] Marjan Sams MD 230 [place], [place] [phone] Preventative health care; Osteoarthritis of knee, unspecified [...] Info) Description 04/06/2025 11:30 AM EST Telemedicine [facility] [address] [place] [address] Marjan Sams MD [address] [place] [address] 06/12/2025 10:30 AM EST Clinical Support [address] [address] Viridiana Hernández, KIMBERLY 505 [place] [address] documented as of this encounter Visit Diagnoses Diagnosis Preventative health care Routine general medical examination at a health care facility Osteoarthritis of knee, unspecified laterality, unspecified osteoarthritis type documented in this encounter Additional Health Concerns Assessment Noted Time PHQ-9 Depression Total Score: 0 11/04/19 23 10:28 AM EDT documented as of this encounter Care Teams Digital Account Coordinator Relationship Specialty Start Date End Date Marjan Sams MD [address] [place] [address] PCP - General Family Medicine 06/04/18 Esteban Nice MD [address] [place] [address] Rheumatology 05/21/24 Ashley Chanel OD 180 [place] [address] Optometry 05/21/24 Alban Koehler 175 [facility] 110 [place] [address] Podiatry 10/08/24 Sonja Patel MD [address] [place] [address] Hematology and Oncology 02/26/25 Jack Lyles 299 [facility] 410 [place], [place] 1104 Thoracic Surgery 02/26/25 Dea Hewitt MD Rheumatology 10/06/24 documented as of this encounter
--- OUTSIDE RECORDS SUMMARY | 2025-03-19 19:57 | XMS_ITS | Encounter Summary ---
Author Organization [employer] Address 75 [facility] 7t [place] [address] Care Team Providers Care Digester Operator Helper Name Role Phone Marjan Sams MD Primary Care Provider +1- [phone] Esteban Nice MD Unavailable Ashley Chanel OD Unavailable [phone] Alban Koehler Unavailable Sonja Patel MD Unavailable [phone] Jack Lyles Unavailable Reason for Visit * Reason Comments Med Refill Encounter Details Date Type Department Care Team (Late st Contact Info) Description 10/19/2023 Refill [facility] 230 [place] [address] Lluvia Mendoza MD 230 [place] [address] History of DVT (deep vein thrombosis) Social [...] the past 12 months, has t he [employer], gas, oil or water company threatened to [...] Info) Description 04/06/2025 11:30 AM EST Telemedicine [address] [address] Marjan Sams MD [address] [place] [address] 06/12/2025 10:30 AM EST Clinical Support [address] [address] Viridiana Hernández RN 505 [place] [address] documented as of this encounter Visit Diagnoses Diagnosis History of DVT (deep vein thrombosis) documented in this encounter Additional Health Concerns Assessment Noted Time PHQ-9 Depression Total Score: 0 11/04/19 23 10:28 AM EDT documented as of this encounter Care Teams Digester Operator Helper Relationship Specialty Start Date End Date Marjan Sams MD [address] [place] [address] PCP - General Family Medicine 06/04/18 Esteban Nice MD [address] 402 [place] [address] Rheumatology 05/21/24 Ashley Chanel OD 180 [place] [address] Optometry 05/21/24 Alban Koehler 175 [facility] 110 [place] [address] Podiatry 10/08/24 Sonja Patel MD [address] [place] [address] Hematology and Oncology 02/26/25 Jack Lyles 299 [facility] 410 [place], [place] 110 Thoracic Surgery 02/26/25 Dea Hewitt MD Rheumatology 10/06/24 documented as of this encounter
--- OUTSIDE RECORDS SUMMARY | 2025-03-19 19:57 | XMS_ITS | Encounter Summary ---
Author Organization [employer] Address [address] [facility] 7t [place] [address] Care Team Providers Care Vp Ad Products And Planning Name Role Phone Marjan Sams MD Primary Care Provider [phone] Esteban Nice MD Unavailable Ashley Chanel OD Unavailable [phone] Alban Koehler Unavailable Sonja Patel MD Unavailable [phone] Jack Lyles Unavailable Reason for Visit * Reason Onset Date Comments Nurse Triage 09/18/2023 Encounter Details Date Type Department Care Team (Late st Contact Info) Description 09/18/2023 Telephone [facility] [address] [place] [address] [phone] Marjan Sams MD [address] [place], [place] [phone] Nurse Triage Social History Tobacco Use Types [...] the past 12 months, has t he [employer], gas, oil or water [employer] threatened to shut off services in your [...] Info) Description 04/06/2025 11:30 AM EST Telemedicine [facility] [address] [place] [address] Marjan Sams MD [address] [place] [address] 06/12/2025 10:30 AM EST Clinical Support [facility] [address] [place] [address] Viridiana Hernández RN 505 [place] [address] documented as of this encounter Visit Diagnoses Not on filedocumented in this encounter Additional Health Concerns Assessment Noted Time PHQ-9 Depression Total Score: 0 11/04/19 23 10:28 AM EDT documented as of this encounter Care Teams Vp Ad Products And Planning Relationship Specialty Start Date End Date Marjan Sams MD [address] [place] [address] PCP - General Family Medicine 06/04/18 Esteban Nice MD [address] [place] [address] [address] [place] [address] Rheumatology 05/21/24 Ashley Chanel OD 180 [place] [address] Optometry 05/21/24 Alban Koehler 175 [facility] 110 [place] [address] Podiatry 10/08/24 Sonja Patel MD [address] [place] [address] Hematology and Oncology 02/26/25 Jack Lyles 299 [facility] 410 [place], [place] [address] Thoracic Surgery 02/26/25 Dea Hewitt MD Rheumatology 10/06/24 documented as of this encounter
--- OUTSIDE RECORDS SUMMARY | 2025-03-19 19:57 | XMS_ITS | Encounter Summary ---
Author Organization [employer] Address 75 [facility] 7t [place] [address] Care Team Providers Care Roofing Machine Tender Name Role Phone Marjan Sams MD Primary Care Provider [phone] Esteban Nice MD Unavailable Ashley Chanel OD Unavailable [phone] Alban Koehler Unavailable Sonja Patel MD Unavailable [phone] Jack Lyles Unavailable Reason for Visit * Reason Comments Med Refill Encounter Details Date Type Department Care Team (Late st Contact Info) Description 12/19/2024 Refill [facility] 230 [place] [address] Marjan Sams MD 230 [place] [address] History of DVT (deep vein thrombosis) Social [...] Info) Description 04/06/2025 11:30 AM EST Telemedicine [facility] [address] [place] [phone] Marjan Sams MD [address] [place] [address] 06/12/2025 10:30 AM EST Clinical Support [address] [address] Viridiana Hernández RN 505 [place] [address] documented as of this encounter Visit Diagnoses Diagnosis History of DVT (deep vein thrombosis) documented in this encounter Additional Health Concerns Assessment Noted Time PHQ-9 Depression Total Score: 4 02/13/20 24 9:45 AM EDT documented as of this encounter Care Teams Roofing Machine Tender Relationship Specialty Start Date End Date Marjan Sams MD 230 [place] [address] PCP - General Family Medicine 06/04/18 Esteban Nice MD [address] 402 [place] [address] Rheumatology 05/21/24 Ashley Chanel OD 180 [place] [address] Optometry 05/21/24 Alban Koehler 175 [facility] 110 [place] [address] Podiatry 10/08/24 Sonja Patel MD [address] [place] [address] Hematology and Oncology 02/26/25 Jack Lyles 299 [place] 410 [place], [place] 110 Thoracic Surgery 02/26/25 Dea Hewitt MD Rheumatology 10/06/24 documented as of this encounter
--- OUTSIDE RECORDS SUMMARY | 2025-03-19 19:57 | XMS_ITS | Encounter Summary ---
Author Organization [employer] Address [address] [facility] 7t [place] [address] Care Team Providers Care Intensive Care Unit Nurse Name Role Phone Marjan Sams MD Primary Care Provider [phone] Esteban Nice MD Unavailable Ashley Chanel OD Unavailable [phone] Alban Koehler Unavailable Sonja Patel MD Unavailable [phone] Jack Llyes Unavailable Reason for Visit * Reason Onset Date Comments Pt1 02/10/2025 Encounter Details Date Type Department Care Team (Late st Contact Info) Description 02/10/2025 Telephone [facility] [address] [place] [address] [phone] Marjan Sams MD 230 [place], [place] [phone] Pt1 Social History Tobacco Use Types Packs/Day [...] Y/N: Yes Provider name or facility name: [address] [address] [facility] Escort needed: Y/N: No Do you have a wheelchair: Y/N: No If yes- Manual or electric: N/A Visits: 3 x monthly documented in this encounter Plan of Treatment Upcoming Encounters Date Type Department Care Team (Late st Contact Info) Description 04/06/2025 11:30 AM EST Telemedicine [address] [address] Marjan Sams MD 230 [place] [address] 06/12/2025 10:30 AM EST Clinical Support [address] [address] Viridiana Hernández, KIMBERLY 505 [place] [address] documented as of this encounter Visit Diagnoses Not on filedocumented in this encounter Additional Health Concerns Assessment Noted Time PHQ-9 Depression Total Score: 4 02/13/20 24 9:45 AM EDT documented as of this encounter Care Teams Intensive Care Unit Nurse Relationship Specialty Start Date End Date Marjan Sams MD [address] [place] [address] PCP - General Family Medicine 06/04/18 Esteban Nice MD [address] [place] [address] [phone] Rheumatology 05/21/24 Ashley Chanel OD 180 [place] [address] Optometry 05/21/24 Alban Koehler 175 [facility] 110 [place] [address] Podiatry 10/08/24 Sonja Patel MD [address] [place] [address] Hematology and Oncology 02/26/25 Jack Lyles [address] 110 Thoracic Surgery 02/26/25 Dea Hewitt MD Rheumatology 10/06/24 documented as of this encounter
== END 2025-03-19 19:56 | disposition home or self-care (01) ==
PROVIDERS: Emergency Provider Emergency Medicine
DX: C34.92 Malignant neoplasm of unspecified part of left bronchus or lung (principal); J90 Pleural effusion, not elsewhere classified; J44.9 Chronic obstructive pulmonary disease, unspecified; I10 Essential (primary) hypertension; F17.210 Nicotine dependence, cigarettes, uncomplicated; T45.1X5A Adverse effect of antineoplastic and immunosuppressive drugs, initial encounter; Y92.89 Other specified places as the place of occurrence of the external cause; R06.02 Shortness of breath; F41.9 Anxiety disorder, unspecified; Z79.899 Other long term (current) drug therapy; Z86.718 Personal history of other venous thrombosis and embolism; Z79.01 Long term (current) use of anticoagulants
CPT/HCPCS: 36415; 71045; 80053; 83880; 84484; 85025; 99283; 99284

== ENCOUNTER → 2025-03-19 17:42 | Outpatient (BNV) | payer MEDICARE, SELFPAY | PROVIDERS: Emergency Provider Emergency Medicine; Visit Provider Radiology Diagnostic Radiology | DX: J90 Pleural effusion, not elsewhere classified (principal) | CPT/HCPCS: 71045 ==

== ENCOUNTER 2025-04-01 11:40 | Day surgery (SDC) | payer MEDICARE, SELFPAY ==
--- OUTSIDE RECORDS SUMMARY | 2025-03-25 17:56 | XMS_ITS | Clinical Summary ---
Author Organization 175 [facility] Address 175 [place] [address] Phone Care Team Providers Care Card Player Name Role Phone AlexisElizabeth curran Primary Care Provider [phone]- [phone] Allergies No known active allergies Encounters Date Type Department Care Team Description 02/24/2025 8:43 AM EDT - 02/24/2025 11:59 PM EDT Hospital Encounter [facility] PET Scan [address] [place] [address] Abnormal radiologic finding of lung [...] Signed Date: 02/24/2025 12:37 ET Workstation ID: [id number] Transcribed By: Self Edit Transcribed Date: 02/24/2025 [...] Signed Date: 02/24/2025 12:37 ET Workstation ID: [id number] Transcribed By: Self Edit Transcribed Date: 02/24/2025 12:20 ET us Yann Fu MD IMG NM PROCEDURES Final Result from Last 3 Months Insurance [employer] MEDICARE [employer]VANTAGE MEDICAID - [place] Care Teams Card Player Relationship Specialty Start Date End Date Elizabeth Ly DO [address] [place] [address] PCP - General Family Medicine 10/02/24
[2025-04-01] VITALS (14 sets, daily range): BP systolic 119–152; BP diastolic 43–77; PULSE 69–85; RESP 16–24; TEMP 36.6–36.8; O2SAT 96–100; BMI 25.8
--- NOTE | ~2025-04-01 | IR_ITS ---
CLINICAL HISTORY: Lung cancer . The patient presents to interventional radiology for placement of a port for chemotherapy. PROCEDURES: 1. Real-time ultrasound-guided access into the right internal jugular vein after documentation of selected vessel patency, and permanent image storing in the patient records. 2. Placement of a 6.6 Georgian single-lumen port. CLINICIAN: Johan Weiss NP MEDICATIONS: - Versed , Fentanyl , Lidocaine 1% SQ -Antibiotics: Ancef 2g -For additional details, please see nursing flowsheet. Complications: None. Estimated blood loss: <5 ml Specimens: None. Contrast: None. Fluoroscopy time: 1.0 min MODERATE SEDATION TIME: 31 min PROCEDURE NOTE: The procedure, risks, benefits, and alternatives were carefully explained to the patient and written informed consent was obtained. The patient was placed supine on the fluoroscopy table. A timeout was performed. The right neck and chest was prepped and draped in usual sterile fashion. Maximum barrier technique was utilized. Local anesthesia was administered to the access site with 1% lidocaine. Under ultrasound guidance, the right internal jugular vein was accessed with a 5 fr micropuncture set. A 0.035 in wire was advanced into the IVC. A peel-away sheath was advanced over the wire and into the SVC, and the wire was removed. Next, subcutaneous lidocaine was administered to the chest. The port pocket was created after the skin incision, utilizing blunt dissection. Using blunt dissection, a subcutaneous tunnel was created that connects from the port pocket to the venotomy site. Through the peel-away sheath, the 6.6 Georgian port catheter was placed. The catheter position was verified with fluoroscopy to be at the superior vena cava/right atrial junction. The port was connected to the catheter and was placed in the pocket. The port incision site was closed with interrupted 3-0 Vicryl subcutaneous sutures and surgical glue. Prior to closing the skin, 1 g of Ancef solution was placed in the pocket. The port was tested, flushed, and packed with heparin per routine protocol. The patient tolerated the procedure well. The patient was stable after the procedure and was transferred to the PACU. The procedure was performed under moderate sedation and with a dedicated nurse with continuous monitoring of vital signs. A permanent image of the ultrasound the neck and fluoroscopic image of the chest was saved and sent to PACS. FINDINGS: 1. Patent right internal jugular vein 2. Placement of a 6.6 Georgian single lumen port. 3. Port flushes and aspirates very well with a 10 mL syringe. No pneumothorax. IR/IR cvc insert tunnel w prt/telescope operator IMPRESSION: Placement of a 6.6 Georgian single-lumen port. PLAN: - The patient will be discharged home when stable by sedation protocol. - Port may be used immediately. This procedure was performed by Johan Weiss NP and directly supervised by Juan Antonio Blevins MD. Electronically signed by: Juan Antonio Blevins MD 04/08/2025 07:34 AM EST Workstation: [id number]
[2025-04-01 12:43] LABS: INTERNATIONAL NORM RATIO 1.1 (0.9-1.1); Prothrombin Time 12.7 SEC (10.9-12.4)
== END 2025-04-01 15:50 | disposition home or self-care (01) ==
LOC: HO.SSS 11:42
PROVIDERS: PCP Family Medicine; Visit Provider Internal Medicine
DX: Z45.2 Encounter for adjustment and management of vascular access device (principal); C34.92 Malignant neoplasm of unspecified part of left bronchus or lung; Z80.3 Family history of malignant neoplasm of breast; J44.9 Chronic obstructive pulmonary disease, unspecified; M32.9 Systemic lupus erythematosus, unspecified; M85.80 Other specified disorders of bone density and structure, unspecified site; Z86.718 Personal history of other venous thrombosis and embolism; Z79.82 Long term (current) use of aspirin; Z79.51 Long term (current) use of inhaled steroids; Z79.899 Other long term (current) drug therapy; Z88.8 Allergy status to other drugs, medicaments and biological substances; F17.210 Nicotine dependence, cigarettes, uncomplicated
CPT/HCPCS: 36415; 36561; 85610; 99152; 99153; C1769; C1788; J0690; J1642; J1644; J2003; J2250; J3010

== ENCOUNTER → 2025-04-01 12:53 | Outpatient (BNV) | payer MEDICARE, SELFPAY | PROVIDERS: PCP Family Medicine | DX: C34.92 Malignant neoplasm of unspecified part of left bronchus or lung (principal); Z45.2 Encounter for adjustment and management of vascular access device | CPT/HCPCS: 36561; 76937; 77001 ==

== ENCOUNTER 2025-04-20 15:59 | Inpatient (IN) | payer MEDICARE, MEDICAID, SELFPAY ==
--- NOTE | ~2025-04-20 | MR_ITS ---
EXAMINATION: MR BRAIN WITHOUT CONTRAST CLINICAL INFORMATION: VARGAS COMPARISON: March 06, 2025 TECHNIQUE: MRI of the brain was obtained using routine sequences without contrast. FINDINGS: No restricted diffusion. No acute intracranial hemorrhage, mass effect, midline shift, hydrocephalus or herniation. Old lacunar infarcts, basal ganglia/left thalamus. Mild prominent cistern, interpositum cistern Gutiérrez-white matter differentiation is normal. Posterior cranial fossa contents demonstrated no signal abnormality or mass effect. Normal position of the cerebellar tonsils. Sellar/suprasellar region is normal. Flow-void signal within the main cerebral vessels is normal. MR/MR head/brain wo con IMPRESSION: No acute brain abnormality. Old lacunar infarcts suggesting small vessel occlusive disease. Electronically signed by: Ari Cavanaugh MD 04/21/2025 11:00 AM KIARA
--- NOTE | ~2025-04-20 | CT_ITS ---
CLINICAL HISTORY: right inferior nasal quadrantanopsia CT head without contrast Comparison: None provided Findings: No acute intracranial fluid collection or hematoma. No acute process in sinuses or mastoids. No acute bony abnormality. Impression: No acute intracranial process CT angiogram head/cheesh-na of Christianson with contrast, Multiplanar reconstructions and 3D postprocessing Comparison: None provided Findings: Normal configuration of the cheesh-na of [place]on vessels. No acute filling defect or vessel truncation. Dural venous sinuses patent. No aneurysm or central vascular abnormality. No peripheral vascular malformations. Impression: No acute vascular abnormalities CT angiogram of the neck/carotid arteries with contrast, Multiplanar reconstructions and MIPS Comparison: Chest CT 03/05/2025 Findings: Occluded proximal left subclavian artery. Brachiocephalic and left common carotid origins patent. Bilateral vertebral artery origins patent. No evidence for vertebral dissection. Left vertebral dominant. Common carotid arteries are unremarkable. No bilateral internal carotid artery stenosis. No soft tissue abnormality. No acute bony abnormalities. Homogeneous thyromegaly. Dense left upper lobe atelectasis. Right central line partially visualized. Impression: No significant vascular abnormalities This document has been electronically signed by: Paco Rivera MD on 04/20/2025 21:20:15
[2025-04-20 16:05] VITALS: BP 101/71; PULSE 70; RESP 18; BMI 23.8
--- NOTE | 2025-04-20 16:12 | ED.GENADULT ---
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 The patient is somewhat unclear on the time frame of when she developed visual changes. She initially states that her symptoms started a few weeks ago The patient reported to her family only about 1 week ago that she started to notice symptoms. However the patient states that she started a new chemotherapy a few weeks ago and feels as though she had some visual changes prior to starting that She denies any pain to the area She reports that the lower half of her vision is either blurry completely black. The patient finally went to her fruit worker this afternoon which is [facility] in [place] She reports that she was told that she had a stroke and needed to be evaluated in the emergency department The patient is given a piece of paper from a recent visit, however it seems as though she was given the wrong encounter as the forearm she was given was dated May of 2024 and only mentions that she had a diagnosis of cataract. There was no mentioned of any workup from today Related Data Home Medications ?Medication ?Instructions ?Recorded ?Confirmed aspirin 81 mg tablet,delayed 81 mg PO DAILY 03/19/20 04/20/25 release (Adult Low Dose Aspirin) fluticasone furoate 200 1 inh inhalation DAILY 03/19/20 04/20/25 mcg-vilanterol 25 mcg/dose inhalation powder (Breo Ellipta) oxycodone-acetaminophen 5 mg-325 1 tab PO Q12H PRN Pain 03/19/20 04/20/25 mg tablet (Percocet) levalbuterol HCl 1.25 mg/3 mL 1.25 mg inhalation Q4H PRN 09/13/22 04/20/25 solution for nebulization Respiratory Distress hydroxychloroquine 200 mg tablet 400 mg PO DAILY 04/20/25 04/20/25 sennosides 8.6 mg-docusate sodium 1 tab-cap PO BID 04/20/25 04/20/25 50 mg tablet (Senna with Docusate Sodium) Previous Rx's ?Medication ?Instructions ?Recorded albuterol sulfate 90 mcg/actuation 1 inh inhalation QID PRN shortness 08/13/22 aerosol inhaler of breath or wheezing #8.5 grams morphine 15 mg immediate release 15 mg PO BID PRN pain #7 tabs 03/05/25 tablet dexamethasone 4 mg tablet 4 mg PO BID #20 tabs 03/18/25 ondansetron 8 mg disintegrating 8 mg PO Q8H PRN nausea and 03/24/25 tablet vomiting #30 tabs polyethylene glycol 3350 17 gram 17 g PO DAILY PRN constipation 04/10/25 oral powder packet (Miralax) #30 ea folic acid 1 mg tablet 1 mg PO DAILY #90 tabs 04/15/25 Allergies Allergy/AdvReac Type Severity Reaction Status Date / Time paclitaxel Allergy Shortness Verified 04/20/25 16:07 of Breath Review of Systems Constitutional: Constitutional: Denies body ache(s), Denies chills, Denies fever(s) and Denies headache(s) Eyes: Eyes: Reports blind spots, Reports blurry vision, Denies exophthalmos, Reports change in vision, Denies eye discharge, Denies dry eyes, Reports loss of peripheral vision, Reports loss of vision, Denies seeing flashes, Denies photophobia and Denies spots in vision ENT: Denies vertigo, Denies dizziness and Denies headache(s) Cardiovascular: Cardiovascular: Denies chest pain, Denies dyspnea and Denies dyspnea on exertion Respiratory: Respiratory: Denies cough, Denies dyspnea and Denies dyspnea on exertion Gastrointestinal: Gastrointestinal: Denies abdominal pain, Denies nausea and Denies vomiting Musculoskeletal: Musculoskeletal: Denies back pain Neurologic: Denies vertigo, Denies dizziness, Denies headache(s) and Reports loss of vision PMFSH Past Medical History Medical History History of DVT (deep vein thrombosis) (~2014) Systemic lupus erythematosus (~2006) Long-term use of hydroxychloroquine Osteopenia (~2024) COPD (chronic obstructive pulmonary disease) Asthma Obstructive sleep apnea Nicotine dependence, cigarettes, uncomplicated Hyperplastic colon polyp Surgical History History of colonoscopy Family History Family History Mother Breast cancer Sister Breast cancer Social History Social History Household Members: Significant Other Housing: Apartment Do you presently have visiting nurse or other home services: No Alcohol intake: current Alcohol intake frequency: does not drink Alcohol type: hard liquor Patient Tobacco Use Status: Current someday Tobacco user Tobacco use type: Cigarette Cigarette Packs Per Day: 1 Cigarettes Per Day: 2 Years Smoked: (onset 15yo, 1/2ppd x 44yrs, 22pyh) Second Hand Smoke Exposure: No Have you been hit, kicked, punched, or otherwise hurt by someone within the past year? If so, by whom?: No Do you feel safe in your current relationship?: Yes Is there a partner from a previous relationship who is making you feel unsafe now?: No Are you made to feel afraid or neglected: No Advance Directives: No Advance Directives Information Provided: No Do you have a plan to hurt others: No Plan Recently lost weight without trying: Yes How much weight loss: 14-23 pounds Nutrition Risks: No Nutritional Risk Patient : No : No Poor oral hygiene: No service: No Current occupational status: disabled Physical Exam ED Vital Signs: Vital Signs - 24 hr 04/20/25 16:05 04/20/25 18:23 04/20/25 20:34 Temperature 98.0 F 97.8 F Pulse Rate 70 67 59 Respiratory Rate 18 16 16 Blood Pressure 101/71 100/69 91/56 L Pulse Oximetry 97 96 Oxygen Delivery Method Room Air Room Air Room Air BMI result Body Mass Index 23.8 Const General: healthy appearing, comfortable, no acute distress, alert and awake Nutritional Appearance: well nourished Orientation/consciousness: patient oriented x3 HENMT Head: Yes normocephalic and Yes atraumatic Eyes Visual Terrell: abnormal by confrontation upper inner visual field cut (right inferior nasal quadrant anopsia) Alignment and Position: alignment normal Periorbital: periorbital findings normal Eyelids: Yes eyelids normal Conjunctivae: conjunctivae normal Sclerae: sclerae normal Corneas: corneas normal Pupils: Equal, round and reactive pupils present EOM: EOMs intact bilaterally Direct Ophthalmoscopy: normal light reflex, no photophobia, no papilledema and No photophobia Neck Neck: Yes full ROM Resp Effort & Inspection: normal respiratory effort, able to speak in complete sentences and not labored Cardio Rate: regular rate Rhythm: regular rhythm GI Inspection: No distended Palpation (GI): Soft to palpation, not firm, nontender, no guarding and not rigid Skin General skin exam: elasticity normal Neuro General: patient oriented x3 Cranial nerves: Yes CN's II-XII intact bilaterally, Yes Equal, round and reactive pupils present and Yes Bilaterally intact EOM present Cognition (Neuro): normal cognition Extrem Other: Moving all extremities well without any obvious deformities NIH Stroke Scale Internal: Initial- Upon Arrival Time: 18:25 Level of Consciousness: Alert Level of Consciousness Questions: Answers both questions correctly Level of Consciousness Commands: Performs both tasks correctly Best Gaze: Normal Visual: Partial hemianopia Facial Palsy: Normal Motor Arm (Right): No drift Motor Arm (Left): No drift Motor Leg (Right): No drift Motor Leg (Left): No drift Limb Ataxia: Absent Sensory: Normal Best Language: No aphasia Dysarthia: Normal Extinction and Inattention: No abnormality Score: 1 Course Course Course Narrative: RME: 60-year-old female sent by eye doctor to rule out stroke in right eye. Patient states having blurry vision right ear for few weeks. No other complaints. Patient is brought back to the ED for evaluation Reevaluation(s) Reevaluation #1: Attending note: Dr. Fernandes: I saw this patient with the physician obstetric assistant. The patient is a 60-year-old woman with a history of lupus who presents with several days of visual symptoms related to the right eye. The patient was quite vague in her description of the symptoms. She primarily described blurry vision in the right eye. She says that she called her ophthalmology office last week on Sunday and was given an appointment today. She went to her ophthalmology appointment and was seen by the fruit worker who was concerned about possible ophthalmic stroke. On my exam the patient has a right eye quadrant an OPC a of the inferonasal visual field of the right eye. The patient's neurological exam is otherwise normal. She therefore has an NIH stroke scale of 1. She was considered for thrombolytic therapy. She is not a candidate thrombolytic therapy because her symptoms have been going on for several days. the patient has an EKG that shows sinus rhythm. The physician obstetric assistant spoke with the fruit worker to examine the patient and recommended hospitalization for additional workup. The patient will be admitted to the hospitalist service. Medications Administered Generic Name Dose Route Start Last Admin Trade Name Angelica PRN Reason Stop Dose Admin Aspirin 81 mg 04/21/25 09:00 04/21/25 08:35 Aspirin Enteric Coated 81 Mg Tablet.Dr PO 81 mg DAILY CARLEY Administration Enoxaparin Sodium 40 mg 04/20/25 22:15 04/20/25 22:41 Enoxaparin Sodium 40 Mg/0.4 Ml Syringe SUBCUT 40 mg Q24H CARLEY Administration Fluticasone/Vilanterol 1 puff 04/21/25 08:00 04/21/25 08:34 Fluticasone/Vilanterol 200/25 Blst.W.Dev INHALE 1 puff RDAILY CARLEY Administration Folic Acid 1 mg 04/21/25 09:00 04/21/25 08:35 Folic Acid 1 Mg Tablet PO 1 mg DAILY CARLEY Administration Hydroxychloroquine Sulfate 400 mg 04/21/25 09:00 04/21/25 08:34 Hydroxychloroquine Sulfate 200 Mg Tablet PO 400 mg DAILY CARLEY Administration Senna/Docusate Sodium 1 tab 04/20/25 22:45 04/21/25 08:34 Sennosides/Docusate Sodium Tablet PO 1 tab BID CARLEY Administration Sodium Chloride 3 ml 04/21/25 00:00 04/21/25 08:35 0.9 % Sodium Chloride Flush 3 Ml Syringe IVFLUSH 3 ml QSHIFT CARLEY Administration Discontinued Medications Generic Name Dose Route Start Last Admin Trade Name Frezuri PRN Reason Stop Dose Admin Aspirin 325 mg 04/20/25 19:33 04/20/25 19:44 Aspirin 325 Mg Tablet PO 04/20/25 19:34 325 mg ONCE ONE Administration Dexamethasone 4 mg 04/20/25 22:40 04/20/25 23:23 Dexamethasone 4 Mg Tablet PO 04/20/25 22:41 4 mg BID CARLEY Administration Lactated Ringer's 1,000 mls @ 999 mls/hr 04/20/25 22:00 04/21/25 00:20 Lr IV 04/20/25 23:00 Infused .Q1H1M CARLEY Infusion Iohexol 100 ml 04/20/25 20:29 04/20/25 20:29 Iohexol 350 Mg/Ml 100 Ml Infus..Btl IV 04/20/25 20:30 70 ml ONCE ONE Administration Morphine Sulfate 15 mg 04/20/25 18:34 04/20/25 18:39 Morphine Sulfate Immed Release 15 Mg Tablet PO 04/20/25 18:35 15 mg ONCE ONE Administration Medical Decision Making Medical Decision Making [facility] Narrative: 60-year-old female with a past medical history as above presents for evaluation of vision loss on the right eye. He appears to have a right inferior nasal quadrantanopsia on exam. She has no pain with this, she has no headaches, no lightheadedness, dizziness, slurred speech, weakness. The patient has an NIH stroke score of 1 due to a partial visual field loss. She has no other focal findings on exam. The patient was considered for TNK, however her symptoms started at least 5 days ago and she is well as I had the window for treatment. I was able to discuss with Dr Dedrick Hyatt who is the provider that saw the patient in the office today. He reports that he saw a superior branch retinal artery occlusion on the right side. He recommends the patient be evaluated for labs, MRI of the brain, carotid evaluation and an echocardiogram. Differential Diagnosis Differential Diagnoses: The differential diagnosis associated with the presentation includes CVA TIA Intracranial mass Glaucoma Retinal artery detachment Admission/Observation Consideration of admission/observation: Escalation of care including admission/observation considered Consult Healthcare Provider Management of the patient was discussed with: Veterinary Laboratory Diagnostician (Outside Ophthalmology) Lab Data [facility] Lab Attestation statement: I reviewed the patient's lab results. No leukocytosis or anemia. Normal platelet count. No electrolyte abnormalities warranting dimension. Normal renal function 04/21/25 05:29 04/21/25 05:29 Labs: Lab Results 04/20/25 04/20/25 Range/Units 16:22 20:05 WBC 7.6 (4.8-10.8) X10*3/uL RBC 4.89 (4.20-5.50) X10*6/uL Hgb 13.3 (12.0-16.0) g/dl Hct 43.7 (37.0-47.0) % MCV 89.4 (80.0-98.0) fL MCH 27.2 (27.0-33.0) pg MCHC 30.4 L (31.0-35.0) g/dl RDW 17.8 H (11.0-16.0) % Plt Count 253 (160-400) X10*3/uL MPV 9.8 (9.4-12.3) fL Immature Gran % (Auto) 0.4 (0.0-0.4) % Neut % (Auto) 74.8 H (45-73) % Lymph % (Auto) 23.4 (20-40) % [place] % (Auto) 1.2 L (2-11) % Eos % (Auto) 0.1 (0-4) % Baso % (Auto) 0.1 (0-2) % Lymph # (Auto) 1.8 (1.2-4.9) X10*3/uL [place] # (Auto) 0.1 (0.1-1.2) X10*3/uL Eos # (Auto) 0.0 (0.0-0.4) X10*3/uL Baso # (Auto) 0.0 (0.0-0.2) X10*3/uL Abs Immat Gran (auto) 0.03 (0.00-0.03) X10*3/uL Absolute Neuts (auto) 5.7 (2.0-8.3) x10*3/uL Absolute Nucleated RBC 0.000 (0.0-0.012) X10*3/uL Nucleated RBC % (auto) 0.0 (0.0-0.2) /100WBC ESR 86 H (0-20) MM/HR PT 13.1 (11.2-13.5) SEC INR 1.1 (0.9-1.1) APTT 29.2 (26.7-34.1) SEC Sodium 135 (135-145) mmol/L Potassium 4.0 (3.3-5.1) mmol/L Chloride 107 (96-108) mmol/L Carbon Dioxide 18 L (22-29) mmol/L Anion Gap 14 (12-20) BUN 19 H (9-16) mg/dL Creatinine 0.79 (0.5-1.4) mg/dL Estim Creat Clear Calc 60.6 Estimated GFR > 60 Random Glucose 66 (60-115) mg/dL Calcium 9.6 (8.4-10.2) mg/dL Total Bilirubin 0.7 (0.0-1.0) mg/dL AST 27 (5-31) U/L ALT 11 (0-31) U/L Alkaline Phosphatase 89 (39-117) U/L C-Reactive Protein 0.94 H (< or = 0.50) mg/dL Total Protein 9.1 H (6.5-8.0) g/dL Albumin 3.7 (3.5-5.0) g/dL Triglycerides 160 H (<150) mg/dL Cholesterol 221 H (<200) mg/dL LDL Cholesterol, Calc 145 H (<100) mg/dL HDL Cholesterol 44 (>40) mg/dL Discharge Plan Discharge Clinical Impression: Branch retinal artery occlusion of right eye Patient Disposition: Admitted As Inpatient Interventions: Admission Worksheet (ED) Last Done: 04/21/25 07:33
[2025-04-20 16:26] LABS: MANUAL DIFF FLAG NO
[2025-04-20 16:27] LABS: Hematocrit 43.7 % (37.0-47.0); Hemoglobin 13.3 g/dl (12.0-16.0); Imm Gran Abs Auto 0.03 X10*3/uL (0.00-0.03); Imm Gran Pct Auto 0.4 % (0.0-0.4); Lymphocytes Absolute Auto 1.8 X10*3/uL (1.2-4.9); Mean Corpuscular HGB Conc 30.4 g/dl (31.0-35.0); Mean Corpuscular Hemoglobin 27.2 pg (27.0-33.0); Mean Corpuscular Volume 89.4 fL (80.0-98.0); NRBC Abs Auto 0.000 X10*3/uL (0.0-0.012); NRBC Pct Auto 0.0 /100WBC (0.0-0.2); Platelet Count 253 X10*3/uL (160-400); Red Blood Count 4.89 X10*6/uL (4.20-5.50); White Blood Count 7.6 X10*3/uL (4.8-10.8)
[2025-04-20 16:49] LABS: Alanine Aminotransferase 11 U/L (0-31); Albumin Level 3.7 g/dL (3.5-5.0); Alkaline Phosphatase 89 U/L (39-117); Anion Gap 14 (12-20); Aspartate Amino Transferase 27 U/L (5-31); Blood Urea Nitrogen 19 mg/dL (9-16); Calcium 9.6 mg/dL (8.4-10.2); Carbon Dioxide 18 mmol/L (22-29); Chloride 107 mmol/L (96-108); Creatinine Clr Calc Pharmacy 60.6; Estimated Glomerular Filt Rate > 60; Potassium 4.0 mmol/L (3.3-5.1); Sodium 135 mmol/L (135-145); Total Protein 9.1 g/dL (6.5-8.0)
[2025-04-20 18:23] VITALS: BP 100/69; PULSE 67; RESP 16; TEMP 36.7; O2SAT 97
[2025-04-20] MEDS: Morphine Sulfate Immed Release 15 MG TABLET PO (18:39)
--- NOTE | 2025-04-20 19:02 | ECG_ITS ---
Test Reason : ARRHYTHMIA Blood Pressure : */* mmHG Vent. Rate : 64 BPM Atrial Rate : 64 BPM P-R Int : 130 ms QRS Dur : 104 ms QT Int : 414 ms P-R-T Axes : -29 55 108 degrees QTcB Int : 427 ms Normal sinus rhythm Minimal voltage criteria for LVH, may be normal variant ( [facility] product ) Nonspecific ST and T wave abnormality Abnormal ECG When compared with ECG of 13-Aug-2022 17:58, QT has shortened Referred By: Gorge Bhat Electronically Signed By: ALEXYS MARTINEZ
--- NOTE | 2025-04-20 20:05 | PC.NURSE ---
Pt power port accessed with 20g and dressed with securement device. +Blood return.
[2025-04-20 20:17] LABS: INTERNATIONAL NORM RATIO 1.1 (0.9-1.1); Prothrombin Time 13.1 SEC (11.2-13.5)
[2025-04-20 20:20] LABS: Partial Thromboplastin Time 29.2 SEC (26.7-34.1)
[2025-04-20] MEDS: iohexoL 350 MG/ML 100 ML INFUS..BTL IV (20:29)
[2025-04-20 20:34] VITALS: BP 91/56; PULSE 59; RESP 16; TEMP 36.6; O2SAT 96
[2025-04-20 22:12] VITALS: BP 90/60; PULSE 60; RESP 16; TEMP 36.8; O2SAT 97
--- NOTE | 2025-04-20 22:22 | PHA.MEDREC ---
Addendum entered by Devin Jacobs, PharmD 04/20/25 22:28: reviewed Original Note: Pharmacy Consult ? Medication Reconciliation Pharmacy has completed the medication reconciliation. Spoke with pt and she confirmed her medications. Pt states she has one dose of Dexamethasone 4mg BID left; pt was taking for 2 days after chemo and today was day 2, she states she is still using Breo Ellipta inhaler once daily; that has not been filled since 07/17 for 30 days, she states she is not using Gabapentin 300mg caps at this time, she states she takes Hydroxychloroquine 200mg tabs 2 tabs once daily; claims shows script written 2 tabs x5d a week and 1 tab x2d a week and pt taking her Senna-Docusate BID now.
[2025-04-20 22:30] LABS: Cholesterol 221 mg/dL (<200); HDL Cholesterol 44 mg/dL (>40); Triglycerides 160 mg/dL (<150)
[2025-04-20 22:33] VITALS: BP 101/62; PULSE 70; RESP 16
[2025-04-20] MEDS: Lactated Ringers 1,000 ML 999 ML IV (22:37)
--- NOTE | 2025-04-20 22:39 | P.HPHOSP_ITS ---
History of Present Illness Date of Service: 04/20/25 Attending physician on admission: Jaime Beal Chief Complaint: R VARGAS seen by opthalmalogist Patient is a 60-year-old female with a past medical history significant for left lung squamous cell carcinoma on chemotherapy (including dexamethasone), history DVT not on anticoagulation, lupus, moderate COPD, DARIN (no CPAP), who presented to the ED by her machinist set up due to a finding of right retinal artery occlusion on exam today. The patient had reported blurry vision for the past 2- 3 weeks in the right eye. She states this began when she started a new chemotherapy regimen but thought that this was normal as she occasionally will have blurry vision. Now the vision is either blurry or blacked out in the lower portion of the right eye. She denies any headache, chest pain, shortness of breath, dizziness, weakness, nausea, vomiting or any bothersome symptoms at this time. Review of Systems 2 Constitutional: Constitutional: Denies body ache(s), Denies chills, Denies fatigue, Denies fever(s) and Denies headache(s) Eyes: Eyes: Reports as per HPI ENT: Denies headache(s), Denies nasal congestion and Denies sore throat Cardiovascular: Cardiovascular: Denies chest pain, Denies rapid heart rate, Denies lightheadedness and Denies dyspnea Respiratory: Respiratory: Denies chest congestion, Denies cough, Denies dyspnea and Denies wheezing Gastrointestinal: Gastrointestinal: Denies abdominal pain, Denies nausea and Denies vomiting Genitourinary: Genitourinary: Denies dysuria and Denies urinary urgency Musculoskeletal: Musculoskeletal: Denies myalgias Integumentary/Breasts: Skin/Breast: Denies rash Neurologic: Denies confusion and Denies headache(s) Psychiatric: Psychiatric: Denies confusion Endocrine: Endocrine: Denies fatigue Hematologic/Lymphatic: Hematologic/Lymphatic: Denies easy bleeding Allergic/Immunologic: Allergic/Immunologic: Denies wheezing [facility] Medical History History of DVT (deep vein thrombosis) (~2014) Systemic lupus erythematosus (~2006) Long-term use of hydroxychloroquine Osteopenia (~2024) COPD (chronic obstructive pulmonary disease) Asthma Obstructive sleep apnea Nicotine dependence, cigarettes, uncomplicated Hyperplastic colon polyp Functional capacity: independent ambulation Family History Mother Breast cancer Sister Breast cancer Surgical History History of colonoscopy Social History Household Members: Significant Other and None Housing: Apartment Do you presently have visiting nurse or other home services: No Alcohol intake: current Alcohol intake frequency: does not drink Alcohol type: hard liquor Patient Tobacco Use Status: Current everyday Tobacco user Tobacco use type: Cigarette Cigarette Packs Per Day: 1 Cigarettes Per Day: 2 Years Smoked: (onset 15yo, 1/2ppd x 44yrs, 22pyh) Second Hand Smoke Exposure: No Advance Directives: No Advance Directives Information Provided: No service: No Current occupational status: disabled Narrative: Quitting smoking, currently smoking 2 cigarettes per day, no alcohol or drug use Meds Allergies Allergy/AdvReac Type Severity Reaction Status Date / Time paclitaxel Allergy Shortness Verified 04/20/25 16:07 of Breath Active Medications: Current Medications Acetaminophen (Acetaminophen 325 Mg Tablet) 975 mg PO Q6H PRN PRN Reason: Pain, Mild 1-3,fever,headache Albuterol Sulfate (Albuterol Sulfate 90 Mcg 8 Gm Inhaler) 1 puff INHALE QID PRN PRN Reason: shortness of breath or wheezing Aspirin (Aspirin Enteric Coated 81 Mg Tablet.Dr) 81 mg PO DAILY CARLEY Calcium Carbonate (Calcium Carbonate 750 Mg Tab.Chew) 750 mg PO Q4H PRN PRN Reason: Heartburn Dexamethasone (Dexamethasone 4 Mg Tablet) 4 mg PO BID CARLEY Stop: 04/20/25 22:41 Enoxaparin Sodium (Enoxaparin Sodium 40 Mg/0.4 Ml Syringe) 40 mg SUBCUT Q24H CARLEY Fluticasone/Vilanterol (Fluticasone/Vilanterol 200/25 Blst.W.Dev) 1 puff INHALE DAILY CARLEY Folic Acid (Folic Acid 1 Mg Tablet) 1 mg PO DAILY CARLEY Hydroxychloroquine Sulfate (Hydroxychloroquine Sulfate 200 Mg Tablet) 400 mg PO DAILY CARLEY Lactated Ringer's (Lr) 1,000 mls @ 999 mls/hr IV .Q1H1M CARLEY Stop: 04/20/25 23:00 Levalbuterol HCl (Levalbuterol Hcl 1.25 Mg/3 Ml Vial.Neb) 1.25 mg INHALE Q4H PRN PRN Reason: Respiratory Distress Magnesium Hydroxide (Milk Of Magnesia 30 Ml Oral.Susp) 30 ml PO DAILY PRN PRN Reason: Constipation Melatonin (Melatonin 3 Mg Tablet) 6 mg PO BEDTIME PRN PRN Reason: Insomnia Morphine Sulfate (Morphine Sulfate Immed Release 15 Mg Tablet) 15 mg PO BID PRN PRN Reason: Pain, Moderate(Pain Scale 4-6) Ondansetron HCl (Ondansetron Hcl 4 Mg/2 Ml Vial) 4 mg IVPUSH Q8H PRN PRN Reason: Nausea and Vomiting Oxycodone HCl (Oxycodone Hcl Immed Release 5 Mg Tablet) 5 mg PO Q6H PRN PRN Reason: Pain, Severe (Pain Scale 7-10) Polyethylene Glycol (Polyethylene Glycol 3350 17 Gm Powd.Pack) 17 gm PO DAILY PRN PRN Reason: constipation Senna/Docusate Sodium (Sennosides/Docusate Sodium Tablet) 1 tab PO BID [facility] Sodium Chloride (0.9 % Sodium Chloride Flush 3 Ml Syringe) 3 ml IVFLUSH QSHIFT [facility] Tramadol HCl (Tramadol Hcl 50 Mg Tablet) 50 mg PO Q6H PRN PRN Reason: Pain, Moderate(Pain Scale 4-6) Home Medications ?Medication ?Instructions ?Recorded ?Confirmed ?Last Taken ?Type aspirin 81 mg tablet,delayed 81 mg PO DAILY 03/19/20 1 06/20/24 04/20/25 History release (Adult Low Dose Aspirin) fluticasone furoate 200 1 inh inhalation DAILY 03/1904/20/25 04/20/25 History mcg-vilanterol 25 mcg/dose inhalation powder (Breo Ellipta) oxycodone-acetaminophen 5 mg-325 1 tab PO Q12H PRN Amadeo n 03/19/20 04/20/25 02/13/25 History mg tablet (Percocet) levalbuterol HCl 1.25 mg/3 mL 1.25 mg inhalation Q4H P RN 09/13/22 04/20/25 02/16/25 History solution for nebulization Respiratory Distress hydroxychloroquine 200 mg tablet 400 mg PO DAILY 04/2004/20/25 04/20/25 History sennosides 8.6 mg-docusate sodium 1 tab-cap PO BID 04/20/25 04/20/25 History 50 mg tablet (Senna with Docusate Sodium) Physical Exam 2 Vital Signs and Narrative: Vital Signs: Last Vital Signs Temp 98.3 F 04/20/25 22:12 Pulse 70 04/20/25 22:33 Resp 16 04/20/25 22:33 BP 101/62 04/20/25 22:33 Pulse Ox 97 04/20/25 22:12 O2 Del Method Room Air 04/20/25 22:12 BMI result Body Mass Index 23.8 General: AOx3, no acute distress Resp: CTA bilaterally CVS: S1, S2, RRR GI: +BS, NT, no distention Skin: Warm, dry Neuro: Cranial nerves II-XII grossly intact bilaterally. Motor grossly intact bilaterally. 5/5 strength bilateral upper and lower extremities. loss of vision in R eye lower visual mejia. Extremities: No pitting edema Psych: Appropriate affect Const: General: No confusion Orientation/consciousness: No confusion Neuro: General: No confusion Results Labs 04/20/25 16:22 04/20/25 16:22 Labs: Laboratory Results - last 24 hr 04/20/25 04/20/25 16:22 20:05 MCV 89.4 MCH 27.2 MCHC 30.4 L RDW 17.8 H Plt Count 253 MPV 9.8 Immature Gran % (Auto) 0.4 Neut % (Auto) 74.8 H Lymph % (Auto) 23.4 [place] % (Auto) 1.2 L Eos % (Auto) 0.1 Baso % (Auto) 0.1 Lymph # (Auto) 1.8 [place] # (Auto) 0.1 Eos # (Auto) 0.0 Baso # (Auto) 0.0 Abs Immat Gran (auto) 0.03 Absolute Neuts (auto) 5.7 Absolute Nucleated RBC 0.000 Nucleated RBC % (auto) 0.0 ESR 86 H PT 13.1 INR 1.1 APTT 29.2 Anion Gap 14 Estim Creat Clear Calc 60.6 Estimated GFR > 60 Random Glucose 66 Calcium 9.6 Total Bilirubin 0.7 AST 27 ALT 11 Alkaline Phosphatase 89 C-Reactive Protein 0.94 H Total Protein 9.1 H Albumin 3.7 Triglycerides 160 H Cholesterol 221 H LDL Cholesterol, Calc 145 H HDL Cholesterol 44 Assessment and Plan (1) Branch retinal artery occlusion of right eye: Status: Acute (2) Nicotine dependence, cigarettes, uncomplicated: Status: Acute Plan Patient is a 60-year-old female with a past medical history significant for left lung squamous cell carcinoma on chemotherapy (including dexamethasone), history DVT not on anticoagulation, lupus, moderate COPD, DARIN (no CPAP), who presented to the ED by her machinist set up due to a finding of right retinal artery occlusion on exam today. R VARGAS, lower visual field loss - MRI head/brain - echo - lipid panel - tele - neuro consult, appreciate input on vascular consult for ?GCA - continue ASA 81mg daily - PT/OT SCC L lung - followed by Dr Patel - complete dexamethsone course tonight Lupus - hydroxychloroquine, folic acid Moderate COPD, no exacerbation - continue home inhalers DARIN - no CPAP tobacco use disorder - pt currently quitting, declines NRT Full code VTE prophylaxis: Lovenox Patient with right retinal artery occlusion with lower visual field loss, requiring admission for at least 2 midnight stay for further evaluation and monitoring. Quality Stroke Does the patient have a stroke diagnosis?: No VTE Prior VTE?: Yes Approximate Date of Prior VTE: 06/04/14 VTE Risk Level:: Medical - moderate - high VTE Device Contraindication: Treatment Not Indicated VTE Drug Contraindication: N/A - Med Ordered
--- NOTE | 2025-04-20 22:40 | PC.NURSE ---
Pt alert & orientedx3, reports blurred vision in right eye x2-3 weeks. Denies pain. Pt is on chemo. Right chest port accessed, w/ LR infusing as ordered. Pt respirations even and unlabored, skin appropriate color for patient. +CSM. Equal strength bilat. Pt was able to ambulate to bathroom without difficulty. No facial droop or slurred speech. Pt passed bedside swallow eval. Pt NSR on tele. MRI screening form completed. Call mondragon within reach.
[2025-04-21] VITALS (7 sets, daily range): BP systolic 92–127; BP diastolic 64–83; PULSE 56–70; RESP 14–20; TEMP 36.1–36.9; O2SAT 92–98; BMI 24.7
[2025-04-21] MEDS: 0.9 % Sodium Chloride Flush 3 ML SYRINGE IVFLUSH ×4 (00:20→20:04)
[2025-04-21 05:34] LABS: Hematocrit 35.9 % (37.0-47.0); Hemoglobin 11.3 g/dl (12.0-16.0); Mean Corpuscular HGB Conc 31.5 g/dl (31.0-35.0); Mean Corpuscular Hemoglobin 27.2 pg (27.0-33.0); Mean Corpuscular Volume 86.3 fL (80.0-98.0); NRBC Abs Auto 0.000 X10*3/uL (0.0-0.012); NRBC Pct Auto 0.0 /100WBC (0.0-0.2); Platelet Count 222 X10*3/uL (160-400); Red Blood Count 4.16 X10*6/uL (4.20-5.50); White Blood Count 4.7 X10*3/uL (4.8-10.8)
[2025-04-21 05:46] LABS: Anion Gap 12 (12-20); Blood Urea Nitrogen 16 mg/dL (9-16); Calcium 9.0 mg/dL (8.4-10.2); Carbon Dioxide 21 mmol/L (22-29); Chloride 108 mmol/L (96-108); Creatinine Clr Calc Pharmacy 73.7; Estimated Glomerular Filt Rate > 60; Potassium 4.3 mmol/L (3.3-5.1); Sodium 137 mmol/L (135-145)
--- NOTE | 2025-04-21 07:00 | CA_ITS ---
Transthoracic Echocardiogram Patient (Last, First, Middle): Tammy Moeller Jane Gender: F Date of : 1965 Age: 60 Procedure Date: 04/21/2025 Procedure Type: Transthoracic Echocardiogram Location: [facility] [place] Height: 157.48 cm Weight: 58.97 kg BSA: 1.59 m2 Heart Rate: bpm BP: 111 / 65 mmHg Tanbark Peeler: TO Referring MD: Brittaney Lofton PA-C Symptoms: retinal artery occlusion Study Quality: Adequate with contrast ECG Rhythm: Sinus Conclusions: - The left ventricular systolic function is normal. The calculated ejection fraction is 60% by biplane method. - No obvious valvular pathology seen on this study. Findings Procedure Information Contrast agent, definity, is being given per protocol without apparent complications. Left Ventricle Normal left ventricular cavity size. There is mildly increased left ventricular wall thickness. The left ventricular systolic function is normal. The calculated ejection fraction is 60% by biplane method. There is no evidence of regional wall motion abnormalities. Diastolic function is normal for age. Right Ventricle Normal right ventricular cavity size. There is low normal right ventricular systolic function. Atria Both atria are normal in size. Aortic Valve There is a normal trileaflet aortic valve. There is mild calcification of the aortic valve. There is no aortic valve stenosis. There is trace (trivial) aortic valve regurgitation. Mitral Valve There is mild anterior mitral leaflet thickening. There is mild mitral annular calcification. There is no mitral valve regurgitation. There is no mitral valve stenosis. Pulmonic Valve There is mild pulmonic valve regurgitation. Tricuspid Valve There is trace tricuspid valve regurgitation. There is no evidence of pulmonary hypertension. Great Vessels The asc aorta is normal in size. Venous The inferior vena cava is normal in size and collapses greater than 50% with inspiration. Pericardium/Pleural There is no evidence of pericardial effusion. Prior Study Comparison No prior study available for comparison. Recommendations, Care & Conclusions No obvious valvular pathology seen on this study. Measurements 2D Linear Measurements IVSd: 1.02 0.6-0.9/0.6-1.0 cm LVIDd: 4.66 3.9-5.3/4.2-5.9 cm LVIDd Index: 2.93 2.4-3.2/2.2-3.1 cm/m2 LVIDs: 3.02 2.0-3.6 cm LVPWd: 1.03 0.7-1.1 cm LA Diam: 3.20 2.7-3.8/3.0-4.0 cm LAIDs Index: 2.01 1.5-2.3 cm/m2 LV Mass: 208.95 67-162/88-224 g LV Mass Index: 131.42 43-95/49-115 g/m2 LVOT Diam: 2.20 3.0+(-)1.3 cm 2D Systolic Function EF 4C: 59.10 >55% EF 2C: 61.80 >55% EF BiP: 59.90 >55% Mitral Valve MV Pk E: 0.37 MV PK A: 0.57 MV Decel Time: 253.00 E/A: 0.70 E'Lateral: 3.81 E'Medial: 3.48 E/E' Med: 10.70 E/E' Lat: 9.80 PHT: 74.00 MVA PHT: 2.97 Decel [place]: 1.47 Aortic Valve AoV Pk Reymundo: 1.34 AoV Mn Reymundo: 0.84 AoV VTI: 0.24 AoV Pk Grad: 7.00 Aov Mn Grad: 3.00 DEEJAY Cont.VTI: 2.71 LVOT LVOT Pk Reymundo: 0.93 LVOT Mn Reymundo: 0.56 LVOT VTI: 0.17 LVOT Pk Grad: 3.00 LVOT Mn Grad: 1.00 LVOT Diam: 2.20 LVOT Area: 3.80 Diastolic Function MV Pk E: 0.37 MV Pk A: 0.57 E/A: 0.70 E'Medial: 3.48 E/E' Med: 10.70 E' Laterial: 3.81 E/E' Lat: 9.80 Right Ventricle TAPSE (mm): 16.70 TVS' Reymundo: 10.30 Tricuspid Valve TR Pk Reymundo: 2.36 TR Pk Grad: 22.00 RA Press: 3.00 RVSP: 25.00 Great Vessels Aorta Sinus of Valsalva: 3.31 2.0-3.5 cm Ao Asc: 3.40 2.1-3.4 cm Updated in Other Vendor System with Status of Final Max Aleman MD electronically signed on 04/22/2025 11:55:03 AM with status of Final
--- NOTE | 2025-04-21 07:30 | PC.NURSE ---
This RN assumed care of patient @ 0700 Patient awake enjoying her breakfast Patient denies pain at this time Patient reports still no peripheral vision at this time VSS and up to date Patient awaiting bed assignment
[2025-04-21] MEDS: Fluticasone/Vilanterol 200/25 BLST.W.DEV 1 PUFF INHALE (08:34)
[2025-04-21] MEDS: Aspirin Enteric Coated 81 MG TABLET.DR PO (08:35)
--- NOTE | 2025-04-21 09:19 | MHC.CM.PN ---
CM met with Patient at bedside, in the ED and addressed IMM with her, providing Patient with the original and a copy will be placed on the chart. Patient lives in an apartment with her Boyfriend and she required no services nor DME KILN CHARGER. Home/self care is the goal and CM has initiated and will follow for dc planning. PCP is Dr. Marjan Sams and HCP is Sister, Meri. Daughter will transport at dc.
--- NOTE | 2025-04-21 12:36 | MHC.STROKE ---
Met with patient in room 11. Pt awake, alert and oriented x 4. No deficits noted other than vision change in right eye. Pt ambulatory to BR, gait steady. Pt is sitting at edge of bed, tolerating po. Stroke Education reviewed with patient. Pamphlet provided. Risk factors reviewed. Discussed medical hx, medications, social hx, activity, diet withh patient. All questions answered. Education material provided to patient. Will continue to assist as needed.
[2025-04-21] MEDS: Morphine Sulfate Immed Release 15 MG TABLET PO (12:37)
--- NOTE | 2025-04-21 12:37 | P.CNNE_ITS ---
History of Present Illness Data of Consult Service Date: 04/21/25 Primary Care Provider: Marjan Sams MD [facility] Reason for consult: Right retinal artey branch embolism with blurred vision right eye This is a 60-year-old female with a past medical history of recently diagnosed left lung squamous cell carcinoma in March 2025, on chemotherapy (including dexamethasone), history DVT not on anticoagulation, lupus, moderate COPD, DARIN (no CPAP), who presented to the ED by her well service pump equipment operator due to a finding of right retinal artery branch occlusion on exam today. The patient had reported blurry vision for the past 2-3 weeks in the right eye in the left lower quadrant of the right eye. She states this began when she started a new chemotherapy regimen but thought that this was normal as she occasionally will have blurry vision. She denies any headache, chest pain, shortness of breath, dizziness, weakness, nausea, vomiting or any bothersome symptoms at this time. No left- sided weakness or numbness and no speech impediment. No previous history of stroke. She has a 62 year pack history of smoking Review of Systems 2 Eyes: Eyes: Reports blurry vision Comments: Decreased vision in the left lower quadrant of the right eye PMFSH Past Medical History Medical History History of DVT (deep vein thrombosis) (~2014) Systemic lupus erythematosus (~2006) Long-term use of hydroxychloroquine Osteopenia (~2024) COPD (chronic obstructive pulmonary disease) Asthma Obstructive sleep apnea Nicotine dependence, cigarettes, uncomplicated Hyperplastic colon polyp Family History Family History Mother Breast cancer Sister Breast cancer Surgical History Surgical History History of colonoscopy Social History Social History Household Members: Significant Other Housing: Apartment Do you presently have visiting nurse or other home services: No Alcohol intake: current Alcohol intake frequency: does not drink Alcohol type: hard liquor Patient Tobacco Use Status: Current someday Tobacco user Tobacco use type: Cigarette Cigarette Packs Per Day: 1 Cigarettes Per Day: 2 Years Smoked: (onset 15yo, 1/2ppd x 44yrs, 22pyh) Second Hand Smoke Exposure: No Have you been hit, kicked, punched, or otherwise hurt by someone within the past year? If so, by whom?: No Do you feel safe in your current relationship?: Yes Is there a partner from a previous relationship who is making you feel unsafe now?: No Are you made to feel afraid or neglected: No Advance Directives: No Advance Directives Information Provided: No Do you have a plan to hurt others: No Plan Recently lost weight without trying: Yes How much weight loss: 14-23 pounds Nutrition Risks: No Nutritional Risk Patient : No : No Poor oral hygiene: No service: No Current occupational status: disabled Meds Allergies Allergy/AdvReac Type Severity Reaction Status Date / Time paclitaxel Allergy Shortness Verified 04/20/25 16:07 of Breath Active Medications: Current Medications Acetaminophen (Acetaminophen 325 Mg Tablet) 975 mg PO Q6H PRN PRN Reason: Pain, Mild 1-3,fever,headache Albuterol Sulfate (Albuterol Sulfate 90 Mcg 8 Gm Inhaler) 1 puff INHALE QID PRN PRN Reason: shortness of breath or wheezing Aspirin (Aspirin Enteric Coated 81 Mg Tablet.Dr) 81 mg PO DAILY [facility] Last Admin: 04/21/25 08:35 Dose: 81 mg Calcium Carbonate (Calcium Carbonate 750 Mg Tab.Chew) 750 mg PO Q4H PRN PRN Reason: Heartburn Enoxaparin Sodium (Enoxaparin Sodium 40 Mg/0.4 Ml Syringe) 40 mg SUBCUT Q24H [facility] Last Admin: 04/20/25 22:41 Dose: 40 mg Fluticasone/Vilanterol (Fluticasone/Vilanterol 200/25 Blst.W.Dev) 1 puff INHALE RDAILY [facility] Last Admin: 04/21/25 08:34 Dose: 1 puff Folic Acid (Folic Acid 1 Mg Tablet) 1 mg PO DAILY [facility] Last Admin: 04/21/25 08:35 Dose: 1 mg Hydroxychloroquine Sulfate (Hydroxychloroquine Sulfate 200 Mg Tablet) 400 mg PO DAILY [facility] Last Admin: 04/21/25 08:34 Dose: 400 mg Levalbuterol HCl (Levalbuterol Hcl 1.25 Mg/3 Ml Vial.Neb) 1.25 mg INHALE Q4H PRN PRN Reason: Respiratory Distress Magnesium Hydroxide (Milk Of Magnesia 30 Ml Oral.Susp) 30 ml PO DAILY PRN PRN Reason: Constipation Melatonin (Melatonin 3 Mg Tablet) 6 mg PO BEDTIME PRN PRN Reason: Insomnia Morphine Sulfate (Morphine Sulfate Immed Release 15 Mg Tablet) 15 mg PO BID PRN PRN Reason: Pain, Moderate(Pain Scale 4-6) Ondansetron HCl (Ondansetron Hcl 4 Mg/2 Ml Vial) 4 mg IVPUSH Q8H PRN PRN Reason: Nausea and Vomiting Oxycodone HCl (Oxycodone Hcl Immed Release 5 Mg Tablet) 5 mg PO Q6H PRN PRN Reason: Pain, Severe (Pain Scale 7-10) Polyethylene Glycol (Polyethylene Glycol 3350 17 Gm Powd.Pack) 17 gm PO DAILY PRN PRN Reason: constipation Senna/Docusate Sodium (Sennosides/Docusate Sodium Tablet) 1 tab PO BID [facility] Last Admin: 04/21/25 08:34 Dose: 1 tab Sodium Chloride (0.9 % Sodium Chloride Flush 3 Ml Syringe) 3 ml IVFLUSH QSHIFT [facility] Last Admin: 04/21/25 08:35 Dose: 3 ml Tramadol HCl (Tramadol Hcl 50 Mg Tablet) 50 mg PO Q6H PRN PRN Reason: Pain, Moderate(Pain Scale 4-6) Home Medications ?Medication ?Instructions ?Recorded ?Confirmed ?Last Taken ?Type aspirin 81 mg tablet,delayed 81 mg PO DAILY 03/19/20 1 06/20/24 04/20/25 History release (Adult Low Dose Aspirin) fluticasone furoate 200 1 inh inhalation DAILY 03/1904/20/25 04/20/25 History mcg-vilanterol 25 mcg/dose inhalation powder (Breo Ellipta) oxycodone-acetaminophen 5 mg-325 1 tab PO Q12H PRN Amadeo n 03/19/20 04/20/25 02/13/25 History mg tablet (Percocet) levalbuterol HCl 1.25 mg/3 mL 1.25 mg inhalation Q4H P RN 09/13/22 04/20/25 02/16/25 History solution for nebulization Respiratory Distress hydroxychloroquine 200 mg tablet 400 mg PO DAILY 1104/20/25 04/20/25 History sennosides 8.6 mg-docusate sodium 1 tab-cap PO BID 04/20/25 04/20/25 History 50 mg tablet (Senna with Docusate Sodium) Physical Exam 2 Vital Signs: Vital Signs: Last Vital Signs Temp 98.1 F 04/21/25 08:00 Pulse 70 04/21/25 08:50 Resp 16 04/21/25 08:00 BP 114/73 04/21/25 08:50 Pulse Ox 94 04/21/25 08:00 O2 Del Method Room Air 04/21/25 08:00 BMI result Body Mass Index 23.8 Neuro: Other: She is alert and oriented with normal intellectual functions.? Cranial nerves 2- 12 are normal except for decrease in vision in the left lower quadrant of the right eye.? Muscle tone and strength are normal in all 4 extremities.? Deep tendon reflexes symmetrical plantar responses are flexor. Results Labs 04/21/25 05:29 04/21/25 05:29 Labs: Short CBC 04/20/25 04/21/25 Range/Units 16:22 05:29 WBC 7.6 4.7 L (4.8-10.8) X10*3/uL Hgb 13.3 11.3 L (12.0-16.0) g/dl Hct 43.7 35.9 L (37.0-47.0) % Plt Count 253 222 (160-400) X10*3/uL BMP 04/20/25 04/21/25 16:22 05:29 Sodium 135 137 Potassium 4.0 4.3 Chloride 107 108 Carbon Dioxide 18 L 21 L BUN 19 H 16 Creatinine 0.79 0.65 Calcium 9.6 9.0 D Liver Function 04/20/25 Range/Units 16:22 Total Bilirubin 0.7 (0.0-1.0) mg/dL AST 27 (5-31) U/L ALT 11 (0-31) U/L Alkaline Phosphatase 89 (39-117) U/L Albumin 3.7 (3.5-5.0) g/dL Assessment and Plan (1) Branch retinal artery occlusion of right eye: Status: Acute Recommendations: Echocardiogram. Seven day cardiac Holter monitor. Continue Aspirin. Her elevated sed rate is probably related to a lung cancer. She is already on steroids Procedures Date of Service Date of Service: 04/21/25
--- NOTE | 2025-04-21 16:30 | P.PNIM_ITS ---
Subjective Subjective Date of Service: 04/21/25 Interval History: Continues to experience painless left lower quadrant vision loss in right eye No headache Denies hemiparesis No known slurring of speech or fogginess and thinking Overall reports feels well without other complaints Review of Systems Review of Systems: Yes all other systems are reviewed and are negative Physical Exam 2 Exam: Exam: General: AOx3, no acute distress Resp: CTA bilaterally CVS: S1, S2, RRR GI: +BS, NT, no distention Skin: Warm, dry Neuro: Cranial nerves II-XII grossly intact bilaterally. Motor grossly intact bilaterally. Strength intact and symmetric in upper and lower extremities. Negative pronator drift. No facial droop. Speech full and fluent. Sensation to light touch intact on face and in upper and lower extremities. Decreased vision in lower right eye. Extremities: No edema Psych: Appropriate affect Vital Signs: Vital Signs: Last Vital Signs Temp 97.0 F 04/21/25 15:18 Pulse 58 04/21/25 15:18 Resp 18 04/21/25 15:18 BP 101/71 04/21/25 15:18 Pulse Ox 97 04/21/25 15:18 O2 Del Method Room Air 04/21/25 15:18 BMI result Body Mass Index 24.7 Objective Data Active Medications Acetaminophen (Acetaminophen 325 Mg Tablet) 975 mg PO Q6H PRN PRN Reason: Pain, Mild 1-3,fever,headache Albuterol Sulfate (Albuterol Sulfate 90 Mcg 8 Gm Inhaler) 1 puff INHALE QID PRN PRN Reason: shortness of breath or wheezing Aspirin (Aspirin Enteric Coated 81 Mg Tablet.) 81 mg PO DAILY [facility] Last Admin: 04/21/25 08:35 Dose: 81 mg Documented By: KIM Calcium Carbonate (Calcium Carbonate 750 Mg Tab.Chew) 750 mg PO Q4H PRN PRN Reason: Heartburn Enoxaparin Sodium (Enoxaparin Sodium 40 Mg/0.4 Ml Syringe) 40 mg SUBCUT Q24H [facility] Last Admin: 04/20/25 22:41 Dose: 40 mg Documented By: LINSEY Fluticasone/Vilanterol (Fluticasone/Vilanterol 200/25 Blst.W.Dev) 1 puff INHALE RDAILY [facility] Last Admin: 04/21/25 08:34 Dose: 1 puff Documented By: KIM Folic Acid (Folic Acid 1 Mg Tablet) 1 mg PO DAILY [facility] Last Admin: 04/21/25 08:35 Dose: 1 mg Documented By: KIM Hydroxychloroquine Sulfate (Hydroxychloroquine Sulfate 200 Mg Tablet) 400 mg PO DAILY [facility] Last Admin: 04/21/25 08:34 Dose: 400 mg Documented By: KIM Levalbuterol HCl (Levalbuterol Hcl 1.25 Mg/3 Ml Vial.Neb) 1.25 mg INHALE Q4H PRN PRN Reason: Respiratory Distress Magnesium Hydroxide (Milk Of Magnesia 30 Ml Oral.Susp) 30 ml PO DAILY PRN PRN Reason: Constipation Melatonin (Melatonin 3 Mg Tablet) 6 mg PO BEDTIME PRN PRN Reason: Insomnia Morphine Sulfate (Morphine Sulfate Immed Release 15 Mg Tablet) 15 mg PO BID PRN PRN Reason: Pain, Moderate(Pain Scale 4-6) Last Admin: 04/21/25 12:37 Dose: 15 mg Documented By: KIM Ondansetron HCl (Ondansetron Hcl 4 Mg/2 Ml Vial) 4 mg IVPUSH Q8H PRN PRN Reason: Nausea and Vomiting Last Admin: 04/21/25 14:30 Dose: 4 mg Documented By: HA Oxycodone HCl (Oxycodone Hcl Immed Release 5 Mg Tablet) 5 mg PO Q6H PRN PRN Reason: Pain, Severe (Pain Scale 7-10) Polyethylene Glycol (Polyethylene Glycol 3350 17 Gm Powd.Pack) 17 gm PO DAILY PRN PRN Reason: constipation Senna/Docusate Sodium (Sennosides/Docusate Sodium Tablet) 1 tab PO BID [facility] Last Admin: 04/21/25 08:34 Dose: 1 tab Documented By: KIM Sodium Chloride (0.9 % Sodium Chloride Flush 3 Ml Syringe) [facility] Admin: 04/21/25 14:30 Dose: 3 ml Documented By: HA Tramadol HCl (Tramadol Hcl 50 Mg Tablet) 50 mg PO Q6H PRN PRN Reason: Pain, Moderate(Pain Scale 4-6) Labs 04/21/25 05:29 04/21/25 05:29 Labs: Laboratory Results - last 24 hr 04/20/25 04/20/25 04/21/25 16:22 20:05 05:29 MCV 86.3 MCH 27.2 MCHC 31.5 RDW 17.7 H Plt Count 222 MPV 9.7 Absolute Nucleated RBC 0.000 Nucleated RBC % (auto) 0.0 ESR 86 H PT 13.1 INR 1.1 APTT 29.2 Anion Gap 14 12 Estim Creat Clear Calc 60.6 73.7 Estimated GFR > 60 > 60 Random Glucose 66 87 Calcium 9.6 9.0 D Total Bilirubin 0.7 AST 27 ALT 11 Alkaline Phosphatase 89 C-Reactive Protein 0.94 H Total Protein 9.1 H Albumin 3.7 Triglycerides 160 H Cholesterol 221 H LDL Cholesterol, Calc 145 H HDL Cholesterol 44 Assessment and Plan (1) Branch retinal artery occlusion of right eye: Status: Acute Plan Patient is a 60-year-old female with a past medical history significant for left lung squamous cell carcinoma on chemotherapy (including dexamethasone), history DVT not on anticoagulation, lupus, moderate COPD, DARIN (no CPAP), who presented to the ED by her neonatal intensive care unit nurse due to a finding of right retinal artery occlusion on exam today. R VARGAS, lower visual field loss - echo pending - lipid panel elevated, will start on atorvastatin 40 mg at bedtime - neuro consulted, suggest echo and 7-day cardiac Holter monitor - continue ASA 81mg daily - MRI negative for acute brain abnormality; did show old lacunar infarcts suggesting small-vessel occlusive disease - PT/OT - monitor on tele SCC L lung - followed by Dr Patel - complete dexamethsone course tonight Lupus - hydroxychloroquine, folic acid Moderate COPD, no exacerbation - continue home inhalers DARIN - no CPAP tobacco use disorder - pt currently quitting, declines NRT Full code VTE prophylaxis: Lovenox Patient with right retinal artery occlusion with lower visual field loss, requiring continued hospitalization for continued cardiac monitoring and echocardiogram. Quality Stroke Does the patient have a stroke diagnosis?: No VTE Prior VTE?: Yes Approximate Date of Prior VTE: 06/04/14 VTE Risk Level:: Medical - moderate - high VTE Device Contraindication: Treatment Not Indicated VTE Drug Contraindication: N/A - Med Ordered
[2025-04-22] VITALS: BP 96/54; PULSE 69; RESP 20; TEMP 36.8; O2SAT 91
[2025-04-22 04:00] VITALS: BP 75/56; PULSE 66; RESP 20; TEMP 36.4; O2SAT 95
[2025-04-22] MEDS: Lactated Ringers 500 ML 999 ML IV (05:06)
[2025-04-22 05:49] VITALS: BP 107/63; PULSE 58; RESP 20; TEMP 37.2; O2SAT 99
[2025-04-22 07:28] LABS: Anion Gap 13 (12-20); Blood Urea Nitrogen 12 mg/dL (9-16); Calcium 8.8 mg/dL (8.4-10.2); Carbon Dioxide 21 mmol/L (22-29); Chloride 107 mmol/L (96-108); Creatinine Clr Calc Pharmacy 79.0; Estimated Glomerular Filt Rate > 60; Potassium 3.6 mmol/L (3.3-5.1); Sodium 137 mmol/L (135-145)
[2025-04-22 07:36] LABS: Hematocrit 34.8 % (37.0-47.0); Hemoglobin 10.9 g/dl (12.0-16.0); Mean Corpuscular HGB Conc 31.3 g/dl (31.0-35.0); Mean Corpuscular Hemoglobin 27.4 pg (27.0-33.0); Mean Corpuscular Volume 87.4 fL (80.0-98.0); NRBC Abs Auto 0.000 X10*3/uL (0.0-0.012); NRBC Pct Auto 0.0 /100WBC (0.0-0.2); Platelet Count 207 X10*3/uL (160-400); Red Blood Count 3.98 X10*6/uL (4.20-5.50); White Blood Count 4.7 X10*3/uL (4.8-10.8)
[2025-04-22 08:00] VITALS: BP 98/55; PULSE 66; RESP 18; TEMP 36.2; O2SAT 95
[2025-04-22] MEDS: 0.9 % Sodium Chloride Flush 3 ML SYRINGE IVFLUSH (08:55)
[2025-04-22] MEDS: Morphine Sulfate Immed Release 15 MG TABLET PO (08:55)
[2025-04-22] MEDS: Aspirin Enteric Coated 81 MG TABLET.DR PO (08:55)
[2025-04-22] MEDS: Fluticasone/Vilanterol 200/25 BLST.W.DEV 1 PUFF INHALE (09:25)
[2025-04-22 11:40] VITALS: BP 87/54; PULSE 72; RESP 18; TEMP 36.3; O2SAT 94
[2025-04-22 13:26] VITALS: BMI 24.7
--- NOTE | 2025-04-22 14:57 | PM.DS ---
DS: Providers Provider Date of Service: 04/22/25 Date of admission: 04/20/25 21:41 Date of discharge: 04/22/25 Primary care physician: Marjan Sams MD Consults: 04/20/25 22:15 Consult to Neurology Routine Consulting Provider: [facility] Reason for consultation: VARGAS seen by solid propellant processor DS: Diagnosis Discharge Diagnosis (1) Branch retinal artery occlusion of right eye: Status: Acute DS: Summary Hospital Course Hospital Course: From admission HPI: Date of Service: 04/20/25 Attending physician on admission: Jaime Beal Chief Complaint: R VARGAS seen by opthalmalogist Patient is a 60-year-old female with a past medical history significant for left lung squamous cell carcinoma on chemotherapy (including dexamethasone), history DVT not on anticoagulation, lupus, moderate COPD, DARIN (no CPAP), who presented to the ED by her solid propellant processor due to a finding of right retinal artery occlusion on exam today. The patient had reported blurry vision for the past 2-3 weeks in the right eye. She states this began when she started a new chemotherapy regimen but thought that this was normal as she occasionally will have blurry vision. Now the vision is either blurry or blacked out in the lower portion of the right eye. She denies any headache, chest pain, shortness of breath, dizziness, weakness, nausea, vomiting or any bothersome symptoms at this time. Hospital course Pt was admitted to the hospital after experiencing painless right vision loss that had been ongoing 2-3 weeks. Pt was at outpatient ophthalmology visit and was sent to the ED for possible retinal artery occlusion. Pt underwent workup for acute stroke which was essentially negative. CTA of head/was negative for acute intracranial process though did show occluded proximal left subclavian artery, though negative for any other acute vascular abnormality. Also demonstrated normal patency of the ophthalmic arteries without vascular abnormality at its origin. MRI of head/brain showed no acute brain abnormality, though showed old lacunar infarcts suggestive of small-vessel occlusive disease. Retinal artery was unable to be assessed properly on the MRI. Lipid panel was found to be elevated. Echocardiogram with left normal left and right ventricular systolic function and LVEF 60%. No obvious valvular pathology. Pt was seen and evaluated by Neurology who thought pt possibly experienced a TIA secondary from cardiogenic source. Recommendation was to continue aspirin and have pt follow up with PCP for 7 day Holter monitor. pt should also follow up with her solid propellant processor. She will also be started on atorvastatin 40 mg daily. Pt should otherwise continue all of her other home meds. Time Attestation Discharge Coordination Time (in mins): 37 Quality: Safe Use of Opioids Does Pt have an Active Cancer Diagnosis on the Problem List?: No Quality: Stroke Does the patient have a stroke diagnosis?: No Physical Exam Exam: Exam: General: AOx3, no acute distress Resp: CTA bilaterally CVS: S1, S2, RRR GI: +BS, NT, no distention Skin: Warm, dry Neuro: Cranial nerves II-XII grossly intact bilaterally. Motor grossly intact bilaterally. Strength intact and symmetric in upper and lower extremities. Negative pronator drift. No facial droop. Speech full and fluent. Sensation to light touch intact on face and in upper and lower extremities. Decreased vision in lower right eye. Extremities: No edema Psych: Appropriate affect Vital Signs: Vital Signs: Last Vital Signs Temp 97.4 F 04/22/25 11:40 Pulse 72 04/22/25 11:40 Resp 18 04/22/25 11:40 BP 87/54 L 04/22/25 11:40 Pulse Ox 94 04/22/25 11:40 O2 Del Method Room Air 04/22/25 11:40 O2 Flow Rate 1.5 04/22/25 05:49 BMI result Body Mass Index 24.7 DS: Data Data Completed and Pending Labs on day of discharge: Laboratory Results - last 24 hr 04/22/25 06:28 WBC 4.7 L RBC 3.98 L Hgb 10.9 L Hct 34.8 L MCV 87.4 MCH 27.4 MCHC 31.3 RDW 17.5 H Plt Count 207 MPV 9.7 Absolute Nucleated RBC 0.000 Nucleated RBC % (auto) 0.0 Sodium 137 Potassium 3.6 Chloride 107 Carbon Dioxide 21 L Anion Gap 13 BUN 12 Creatinine 0.66 Estim Creat Clear Calc 79.0 Estimated GFR > 60 Random Glucose 83 Calcium 8.8 Discharge Plan Discharge Anticipated Discharge Date/Time: 04/22/25 14:22 Patient Disposition: Home, Self-Care Discharge Diagnosis: Painless vision loss in right eye Referrals: Marjan Sams MD [Primary Care Provider, [facility]] - 1 Week Discharge Medications: New atorvastatin [Lipitor] 20 mg tablet 20 mg PO BEDTIME Qty: 90 0RF Rx Instructions: Take 1 tablet at bedtime for cholesterol control Continued albuterol sulfate 90 mcg/actuation HFA aerosol inhaler 1 inh inhalation QID PRN (Reason: shortness of breath or wheezing) Qty: 8.5 0RF levalbuterol HCl 1.25 mg/3 mL Solution For Nebulization 1.25 mg INHALATION Q4H PRN (Reason: Respiratory Distress) dexamethasone 4 mg Tablet 4 mg PO BID Qty: 20 0RF Rx Instructions: Take for 2 days after chemotherapy ondansetron 8 mg Tablet,Disintegrating 8 mg PO Q8H PRN (Reason: nausea and vomiting ) Qty: 30 3RF polyethylene glycol 3350 [Miralax] 17 gram Powder In Packet 17 g PO DAILY PRN (Reason: constipation ) Qty: 30 1RF folic acid 1 mg Tablet 1 mg PO DAILY Qty: 90 3RF morphine 15 mg tablet 15 mg PO BID PRN (Reason: pain) Qty: 7 0RF Rx Instructions: Partial Fill upon patient request. sennosides-docusate sodium [Senna with Docusate Sodium] 8.6-50 mg tablet 1 tab-cap PO BID hydroxychloroquine 200 mg tablet 400 mg PO DAILY Rx Instructions: 400 mg daily x5 days a week and 200 mg daily x2 days a week oxycodone-acetaminophen [Percocet] 5-325 mg tablet 1 tab PO Q12H PRN (Reason: Pain) aspirin [Adult Low Dose Aspirin] 81 mg tablet,delayed release (DR/EC) 81 mg PO DAILY Breo Ellipta 200-25 mcg/dose blister with device 1 inh inhalation DAILY Discharge Orders: Discharge Order (Routine); Ordered 04/22/25 Ordered By: Ben Isaac Activity on Discharge: As tolerated Stand Alone Forms: Patient Portal Discharge page Print Language: Singaporean Care Plan Goals: See below Health Concerns: Painless vision loss TIA/stroke Retinal artery occlusion Plan of Treatment: You were admitted to the hospital after experiencing painless vision loss in your right eye that was concerning for right retinal artery occlusion found by your solid propellant processor. You underwent imaging to evaluate for acute stroke which was largely negative. Your CTA of head/neck was negative for acute intracranial process or acute vascular abnormalities, as well as demonstrated normal patency of the ophthalmic arteries without vascular abnormality. You also underwent an MRI that was negative for acute stroke but did show old lacunar infarcts. You also had an echocardiogram that was essentially normal. In short, your workup was negative for acute stroke. You were seen and evaluated by neurology who thought you possibly a TIA from a possible cardiac source. You should follow up with your PCP for outpatient cardiac monitoring and with your solid propellant processor for management of your vision. -- your cholesterol was noted to be high and you will be started on atorvastatin 20 mg daily at bedtime -- follow up with your PCP to arrange for a 7 day Holter monitor that will monitor for possible heart arrhythmias that can increase your risk for blood clot -- follow up with ophthalmology for continued monitoring and treatment of your vision -- resume all of your other home medications Assessment: See discharge summary
--- NOTE | 2025-04-22 15:14 | MHC.CM.PN ---
Patient has been medically cleared for dc to home today, self care.
[2025-04-22 15:32] VITALS: BP 101/65; PULSE 86; RESP 18; TEMP 36.2; O2SAT 96
== END 2025-04-22 15:57 | disposition home or self-care (01) | DRG 125 ==
LOC: HO.ED 19:48 → HO.EDOVER 21:47 → HO.IMC 04-21 12:30
PROVIDERS: Physician Assistant; Admitting Provider Physician Assistant; Emergency Provider Emergency Medicine; PCP Family Medicine; Visit Provider Student in an Organized Health Care Education/Training Program
DX: H34.231 Retinal artery branch occlusion, right eye (principal); C34.92 Malignant neoplasm of unspecified part of left bronchus or lung; F17.210 Nicotine dependence, cigarettes, uncomplicated; G47.33 Obstructive sleep apnea (adult) (pediatric); M32.9 Systemic lupus erythematosus, unspecified; J44.9 Chronic obstructive pulmonary disease, unspecified; Z71.6 Tobacco abuse counseling; Z86.718 Personal history of other venous thrombosis and embolism; Z79.51 Long term (current) use of inhaled steroids; Z79.82 Long term (current) use of aspirin; Z79.899 Other long term (current) drug therapy
CPT/HCPCS: 36415; 70496; 70498; 70551; 80048; 80053; 80061; 85025; 85027; 85610; 85652; 85730; 86140; 93005; 93306; 97161; 97165; 99285; J1650; J2405; J7120; J8540; Q9957; Q9967

== ENCOUNTER → 2025-04-20 19:02 | Outpatient (BNV) | payer MEDICARE, MEDICAID, SELFPAY | PROVIDERS: Admitting Provider Physician Assistant; Emergency Provider Emergency Medicine; PCP Family Medicine; Visit Provider Radiology Diagnostic Radiology | DX: H53.461 Homonymous bilateral field defects, right side (principal) | CPT/HCPCS: 70496; 70498 ==

== ENCOUNTER → 2025-04-20 19:02 | Outpatient (BNV) | payer MEDICARE, MEDICAID, SELFPAY | PROVIDERS: Admitting Provider Physician Assistant; Emergency Provider Emergency Medicine; PCP Family Medicine; Visit Provider Internal Medicine | DX: R94.31 Abnormal electrocardiogram [ECG] [EKG] (principal); I49.9 Cardiac arrhythmia, unspecified | CPT/HCPCS: 93010 ==

== ENCOUNTER 2025-04-20 21:41 | Outpatient (BNV) | payer MEDICARE, MEDICAID, SELFPAY | END 2025-04-21 07:00 | PROVIDERS: Admitting Provider Physician Assistant; Emergency Provider Emergency Medicine; PCP Family Medicine; Visit Provider Internal Medicine | DX: I35.8 Other nonrheumatic aortic valve disorders (principal); I34.81 Nonrheumatic mitral (valve) annulus calcification | CPT/HCPCS: 93306 ==

== ENCOUNTER 2025-04-20 21:41 | Outpatient (BNV) | payer MEDICARE, MEDICAID, SELFPAY | END 2025-04-21 10:07 | PROVIDERS: Admitting Provider Physician Assistant; Emergency Provider Emergency Medicine; PCP Family Medicine; Visit Provider Radiology Diagnostic Radiology | DX: I63.81 Other cerebral infarction due to occlusion or stenosis of small artery (principal) | CPT/HCPCS: 70551 ==

== ENCOUNTER → 2025-04-20 21:41 | Outpatient (BNV) | payer MEDICARE, MEDICAID, SELFPAY | PROVIDERS: Admitting Provider Physician Assistant; Emergency Provider Emergency Medicine; PCP Family Medicine; Visit Provider Psychiatry & Neurology Neurology | DX: H34.231 Retinal artery branch occlusion, right eye (principal) | CPT/HCPCS: 99223 ==

== ENCOUNTER → 2025-04-20 21:41 | Outpatient (BNV) | payer MEDICARE, MEDICAID, SELFPAY | PROVIDERS: Admitting Provider Physician Assistant; Emergency Provider Emergency Medicine; PCP Family Medicine; Visit Provider Student in an Organized Health Care Education/Training Program | DX: H34.231 Retinal artery branch occlusion, right eye (principal) | CPT/HCPCS: 99223; 99233 ==

== ENCOUNTER 2025-05-09 12:00 | Inpatient (IN) | payer MEDICARE, MEDICAID, SELFPAY ==
[2025-05-09] VITALS (17 sets, daily range): BP systolic 71–120; BP diastolic 42–83; PULSE 69–102; RESP 16–27; TEMP 36.5–36.8; O2SAT 90–99; BMI 24.2
--- NOTE | ~2025-05-09 | CT_ITS ---
CLINICAL HISTORY: diffuse pain, lung CA, rectal bleeding CT abdomen and pelvis with contrast Comparison: CT/REG/SR - CT ABDOMEN PELVIS WITH IV CONTRAST - 09/13/22 11:36 EDT Findings: Complete consolidation of the left lung base with volume loss and associated leftward mediastinal shift. Unremarkable gallbladder and solid organs. No urolithiasis. No bowel obstruction, pneumoperitoneum, or pneumatosis. Sigmoid diverticulosis. Large rectal stool burden with mild rectal wall thickening. Pelvic contents unremarkable. Normal appendix. No acute fracture. IMPRESSION: Large rectal stool burden with mild rectal wall thickening concerning for stercoral colitis. Complete consolidation of the left lung base with volume loss and associated leftward mediastinal shift. Correlate with dedicated chest imaging. Sigmoid diverticulosis without evidence of acute diverticulitis. This document has been electronically signed by: Silvia Shin MD on 05/09/2025 17:35:37
--- NOTE | ~2025-05-09 | XR_ITS ---
CLINICAL HISTORY: compare to prior 2 view chest x-ray Comparison: CR - XR CHEST 1V - 03/19/25 17:[address]/SR - CT ANGIO CHEST PE PROTOCOL - 03/05/25 17:48 EDT Findings: Interval worsening with near complete consolidation of the left gm thorax with volume loss and leftward deviation of the mediastinum. Normal size heart. No acute fracture. IMPRESSION: 1. Interval worsening with near complete consolidation of the left gm thorax with volume loss and leftward deviation of the mediastinum. This document has been electronically signed by: Silvia Shin MD on 05/09/2025 19:07:11
--- NOTE | ~2025-05-09 | CT_ITS ---
EXAMINATION: CT CHEST WITHOUT THEN WITH IV CONTRAST INDICATION: Worsening left lung consolidation COMPARISON: Comparison is made with the prior examination dated 03/05/2025 TECHNIQUE: Helical CT scan of the chest was performed before and after the intravenous administration of 65 mL Omnipaque 350. Coronal and sagittal reformatted images were generated and reviewed. This CT exam was performed with one or more of the following dose reduction techniques: automated exposure control, adjustment of the mA and/or kV according to patient size, use of iterative reconstruction technique. DLP: 198 mGy-cm CHEST: THYROID: The thyroid is unremarkable. LUNGS: There is near complete atelectasis of the left lung with a small residual aerated portion at the apex. Heterogeneous airspace opacities in this region may represent pneumonia. There is debris in the left mainstem bronchus with occlusion. The right lung is clear. MEDIASTINUM: There is no mediastinal lymphadenopathy. RUPA: There is no right hilar lymphadenopathy. Evaluation of the left hilum is limited by atelectasis of the left lung. CARDIOVASCULATURE: The heart is enlarged. There is no pericardial effusion. The thoracic aorta is normal in caliber. DEGREE OF CORONARY CALCIFICATION: moderate PLEURA: There is a small amount of left pleural fluid. No pneumothorax. AXILLA: There is no axillary lymphadenopathy. BONES AND SOFT TISSUES: Unremarkable UPPER ABDOMEN: The visualized portions of the liver, spleen, and adrenals are unremarkable. CT/CT chest wo/w IV con IMPRESSION: 1. Debris in the left main bronchus with occlusion and near complete atelectasis of the left lung. An underlying mass is not excluded. Further evaluation with bronchoscopy is suggested. 2. Patchy airspace opacity in the aerated portion of the left upper lobe which may represent pneumonia. 3. Small amount of left pleural fluid. Electronically signed by: Alek Camejo MD 05/11/2025 11:09 AM [facility]
--- NOTE | 2025-05-09 12:30 | ED_ITS ---
HPI - General Adult General Chief complaint: GI Bleed Stated complaint: SOB RECTAL BLEEDING Time Seen by Provider: 05/09/25 12:23 Source: patient, RN notes reviewed and old records reviewed Mode of arrival: ambulatory Limitations: no limitations History of Present Illness ED Provider: Todd MATHUR narrative: Patient is a 60-year-old female with history of squamous cell carcinoma of left lung, last chemo treatment was yesterday, SLE, COPD, DVT 2014 presenting to the emergency department with complaint of constipation and bright red blood noted in stool this morning. Patient states that she was on the toilet straining to have a bowel movement and noticed some blood after having a bowel movement. Denies history of same in the past. Shortness of breath reported by triage nurse, however, patient is currently denying any shortness of breath that is different from her baseline. Complains of generalized abdominal pain and nausea but denies vomiting, denies diarrhea. Denies fevers. MD complaint: constipation, rectal bleeding Related Data Home Medications ?Medication ?Instructions ?Recorded ?Confirmed aspirin 81 mg tablet,delayed 81 mg PO DAILY 03/19/20 1 07/11/24 release (Adult Low Dose Aspirin) oxycodone-acetaminophen 5 mg-325 1 tab PO Q12H PRN Amadeo n 03/19/20 05/10/25 mg tablet (Percocet) levalbuterol HCl 1.25 mg/3 mL 1.25 mg inhalation Q4H P RN 09/13/22 05/10/25 solution for nebulization Respiratory Distress hydroxychloroquine 200 mg tablet 400 mg PO DAILY 04/2005/10/25 sennosides 8.6 mg-docusate sodium 1 tab-cap PO BID 05/10/25 50 mg tablet (Senna with Docusate Sodium) apixaban 5 mg tablet 5 mg PO BID 05/10/25 5 fluticasone fur. 200 mcg-umeclid 1 inh inhalation NED Y 05/10/25 05/10/25 62.5 mcg-vilant 25 mcg inhalat.powder (Trelegy Ellipta) Previous Rx's ?Medication ?Instructions ?Recorded albuterol sulfate 90 mcg/actuation 1 inh inhalation QI D PRN shortness 08/13/22 aerosol inhaler of breath or wheezing #8.5 g carlos morphine 15 mg immediate release 15 mg PO BID PRN pain #7 tabs 03/05/25 tablet dexamethasone 4 mg tablet 4 mg PO BID #20 tabs 5 ondansetron 8 mg disintegrating 8 mg PO Q8H PRN nausea and 03/24/25 tablet vomiting #30 tabs polyethylene glycol 3350 17 gram 17 g PO DAILY PRN con stipation 04/10/25 oral powder packet (Miralax) #30 ea folic acid 1 mg tablet 1 mg PO DAILY #90 tabs 04/15 atorvastatin 40 mg tablet (Lipitor) 40 mg PO BEDTIME # 90 tabs 04/22/25 Allergies Allergy/AdvReac Type Severity Reaction Status Date / Time paclitaxel Allergy Severe Shortness Verified 05/09/25 12:11 of Breath Review of Systems 2 Review of Systems: as per hpi Yes all other systems are reviewed and are negative Constitutional: Constitutional: Reports as per HPI PMFSH Past Medical History Medical History History of DVT (deep vein thrombosis) (~2014) Systemic lupus erythematosus (~2006) Long-term use of hydroxychloroquine Osteopenia (~2024) COPD (chronic obstructive pulmonary disease) Asthma Obstructive sleep apnea Nicotine dependence, cigarettes, uncomplicated Hyperplastic colon polyp Surgical History History of colonoscopy Family History Family History Mother Breast cancer Sister Breast cancer Social History Social History Household Members: Significant Other Housing: House Do you presently have visiting nurse or other home services: No Alcohol intake: current Alcohol intake frequency: does not drink Alcohol type: hard liquor Patient Tobacco Use Status: Current everyday Tobacco user Tobacco use type: Cigarette Cigarette Packs Per Day: 1 Cigarettes Per Day: 2 Years Smoked: (onset 15yo, 1/2ppd x 44yrs, 22pyh) Patient Interested in Nicotine Replacement: No Second Hand Smoke Exposure: No Currently Displaying Signs/Symptoms of Drug Intoxication Withdrawal: No Have you been hit, kicked, punched, or otherwise hurt by someone within the past year? If so, by whom?: No Do you feel safe in your current relationship?: Yes Is there a partner from a previous relationship who is making you feel unsafe now?: No Are you made to feel afraid or neglected: No Advance Directives: No Advance Directives Information Provided: No Do you have a plan to hurt others: No Plan Recently lost weight without trying: Yes How much weight loss: Unsure Eating poorly because of decreased appetite: Yes Nutrition screen score: 5 Nutrition Risks: No Nutritional Risk Patient : No : No Poor oral hygiene: No service: No Current occupational status: disabled Physical Exam ED Vital Signs: Vital Signs - 24 hr 05/09/25 12:06 05/09/25 12:50 05/09/25 13:00 Temperature 98.2 F Pulse Rate 79 78 80 Respiratory Rate 20 22 H 20 Blood Pressure 120/69 71/42 L 77/49 L Pulse Oximetry 97 98 98 Oxygen Delivery Method Room Air Room Air Room Air 05/09/25 13:15 05/09/25 13:41 05/09/25 13:44 Temperature Pulse Rate 85 75 78 Respiratory Rate 20 20 20 Blood Pressure 81/52 L 92/59 L 108/74 Pulse Oximetry 99 98 96 Oxygen Delivery Method Room Air Room Air Room Air 05/09/25 16:00 05/09/25 17:41 05/09/25 18:00 Temperature Pulse Rate 102 H 76 80 Respiratory Rate 24 H 16 20 Blood Pressure 110/72 111/77 115/73 Pulse Oximetry 96 93 96 Oxygen Delivery Method Room Air Room Air 05/09/25 19:18 05/09/25 19:50 05/09/25 20:05 Temperature Pulse Rate Respiratory Rate 18 20 Blood Pressure Pulse Oximetry 90 L Oxygen Delivery Method 05/09/25 20:16 Temperature 97.7 F Pulse Rate 72 Respiratory Rate 21 H Blood Pressure 113/83 Pulse Oximetry 95 Oxygen Delivery Method Room Air BMI result Body Mass Index 24.2 Vital signs have been reviewed and appear to be correct. Blood pressure normal. Heart rate normal. Respiratory rate normal. Temperature normal. Oxygen saturation normal. Const General: cooperative and no acute distress Orientation/consciousness: oriented to person, oriented to place, oriented to time and patient oriented x3 Limitations: no limitations HENMT Head: Yes normocephalic and Yes atraumatic Ears: external ears normal General nose exam: Normal external nose present Face and sinus: Yes face symmetric Mouth: oropharynx normal and moist mucous membranes Throat: Yes uvula midline Eyes Pupils: Equal, round and reactive pupils present Neck Neck: Yes normal visual inspection and Yes supple Chest Other: portocath right chest Resp Effort & Inspection: normal respiratory effort and able to speak in complete sentences Auscultation: clear to auscultation bilaterally Cardio Rate: regular rate Rhythm: regular rhythm Heart sounds: S1 normal heart sound present and S2 normal heart sound present GI Other: Rectal exam chaperoned by RADHA Melendez tech Palpation (GI): Soft to palpation and nontender Auscultation: normoactive bowel sounds Rectal Exam - Female: normal sphincter tone and External hemorrhoid(s) present General: Yes no CVA tenderness Back/Spine/Pelvis Back: no CVA tenderness Skin General skin exam: elasticity normal and turgor normal Neuro General: oriented to person, oriented to place, oriented to time, patient oriented x3, moves all extremities, no focal motor deficits and CN's II-XI intact bilaterally Cranial nerves: Yes Equal, round and reactive pupils present Cognition (Neuro): normal cognition Extrem General: Yes full ROM, Yes no pedal edema and Yes no calf tenderness Psych Mental Status: mental status grossly normal Affect: normal affect Thought process: Normal thought process present Medications Administered Generic Name Dose Route Start Last Admin Trade Name Scottq PRN Reason Stop Dose Admin Apixaban 5 mg 05/10/25 09:00 05/10/25 08:46 Apixaban 5 Mg Tablet PO 5 mg On Hold: 05/10/25 11:11 BID CARLEY Administration Aspirin 81 mg 05/10/25 10:00 05/10/25 10:28 Aspirin Enteric Coated 81 Mg Tablet.Dr PO 81 mg DAILY CARLEY Administration Dexamethasone 4 mg 05/10/25 10:00 05/10/25 10:30 Dexamethasone 4 Mg Tablet PO 4 mg BID CARLEY Administration Fluticasone/Umeclidinium/Vilanterol 1 puff 05/10/25 10:00 05/10/25 11:19 Fluticasone/Umeclidinium/Vilanterol 200/62.5 Blst.W.Dev INHALE Not Given DAILY [facility] Folic Acid 1 mg 05/10/25 10:00 05/10/25 10:28 Folic Acid 1 Mg Tablet PO 1 mg DAILY CARLEY Administration Hydromorphone HCl 0.5 mg 05/10/25 09:31 05/10/25 09:58 Hydromorphone Hcl 0.5 Mg/0.5 Ml Syringe IVPUSH 0.5 mg Q3H PRN Administration Breakthrough Pain Protocol Hydroxychloroquine Sulfate 400 mg 05/10/25 10:00 05/10/25 10:29 Hydroxychloroquine Sulfate 200 Mg Tablet PO 400 mg DAILY CARLEY Administration Lactated Ringer's 1,000 mls @ 100 mls/hr 05/09/25 21:15 05/10/25 10:31 Lr IVCONT 100 mls/hr .Q10H CARLEY Administration Metronidazole 500 mg in 100 mls @ 100 mls/hr 05/09/25 21:15 05/10/25 06:28 Flagyl IV Infused Q8H CARLEY Infusion Ceftriaxone Sodium 1 gm/ 50 mls @ 100 mls/hr 05/09/25 22:00 05/09/25 22:37 Sodium Chloride IV Infused Q24H CARLEY Infusion Melatonin 6 mg 05/09/25 21:05 05/09/25 22:19 Melatonin 3 Mg Tablet PO 6 mg BEDTIME PRN Administration Insomnia Sodium Chloride 3 ml 05/10/25 00:00 05/10/25 08:45 0.9 % Sodium Chloride Flush 3 Ml Syringe IVFLUSH Not Given QSHIFT CARLEY Discontinued Medications Generic Name Dose Route Start Last Admin Trade Name Freq PRN Reason Stop Dose Admin Enoxaparin Sodium 40 mg 05/09/25 21:15 05/09/25 22:05 Enoxaparin Sodium 40 Mg/0.4 Ml Syringe SUBCUT 40 mg Q24H CARLEY Administration Famotidine 20 mg 05/10/25 06:46 05/10/25 07:12 Famotidine/Pf 20 Mg/2 Ml Vial IVPUSH 05/10/25 06:47 20 mg ONCE ONE Administration Fentanyl 50 mcg 05/09/25 14:22 05/09/25 14:26 Fentanyl Citrate/Pf 100 Mcg/2 Ml Vial IVPUSH 05/09/25 14:23 50 mcg ONCE ONE Administration Protocol Fentanyl 50 mcg 05/09/25 18:27 05/09/25 19:18 Fentanyl Citrate/Pf 100 Mcg/2 Ml Vial IVPUSH 05/09/25 18:28 50 mcg ONCE ONE Administration Protocol Hydromorphone HCl 0.5 mg 05/09/25 22:10 05/10/25 06:27 Hydromorphone Hcl 0.5 Mg/0.5 Ml Syringe IVPUSH 0.5 mg Q4H PRN Administration Breakthrough Pain Protocol Hydromorphone HCl 0.5 mg 05/10/25 06:46 05/10/25 07:13 Hydromorphone Hcl 0.5 Mg/0.5 Ml Syringe IVPUSH 05/10/25 06:47 Not Given ONCE ONE Protocol Lactated Ringer's 1,000 mls @ 999 mls/hr 05/09/25 13:00 05/09/25 14:20 Lr IV 05/09/25 14:00 Infused .Q1H1M CARLEY Infusion Iohexol 100 ml 05/09/25 15:10 05/09/25 15:10 Iohexol 350 Mg/Ml 100 Ml Infus..Btl IV 05/09/25 15:11 85 ml ONCE ONE Administration Ondansetron HCl 4 mg 05/09/25 13:26 05/09/25 13:30 Ondansetron Hcl 4 Mg/2 Ml Vial IVPUSH 05/09/25 13:27 4 mg ONCE ONE Administration Ondansetron HCl 4 mg 05/09/25 18:27 05/09/25 19:19 Ondansetron Hcl 4 Mg/2 Ml Vial IVPUSH 05/09/25 18:28 4 mg ONCE ONE Administration Ondansetron HCl 4 mg 05/09/25 22:25 05/09/25 22:34 Ondansetron Hcl 4 Mg/2 Ml Vial IVPUSH 05/09/25 22:26 4 mg ONCE ONE Administration Ondansetron HCl 4 mg 05/10/25 00:27 05/10/25 01:08 Ondansetron Hcl 4 Mg/2 Ml Vial IVPUSH 05/10/25 00:28 4 mg ONCE ONE Administration Medical Decision Making Medical Decision Making MDM Narrative: Patient is a 60-year-old female with history of squamous cell carcinoma of left lung, last chemo treatment was yesterday, SLE, COPD, DVT 2014 presenting to the emergency department with complaint of constipation and bright red blood noted in stool this morning. On exam patient is awake, A+Ox3, VS WNL, afebrile, normal neurological exam without focal deficits, physical exam findings as above. Given reported symptoms and physical exam findings, initial differential includes but is not limited to anemia, external hemorrhoid, constipation. Labs notable for leukopenia consistent with prior labs, anemia not at transfusable level, stable from labs drawn yesterday. One episode of vomiting here in the ED. Patient also had large BM in the ED, no brock blood noted. CT A/P notable for large rectal stool burden with mild rectal wall thickening, also complete consolidation of left lung base with volume loss and associated leftward mediastinal shift. My interpretation is in agreement with the radiologist's interpretation. Case discussed with attending, Dr. Hauser, regarding lung findings on CT A/P. He recommends CXR to compare to prior from 03/19/25. Patient signed out to MORALES Keane pending results of chest x-ray and ambulation trial. 7:33 PM 05/09/2025 (Diya Marcelo PA-C): XR chest 2V IMPRESSION: 1. Interval worsening with near complete consolidation of the left gm thorax with volume loss and leftward deviation of the mediastinum. -2003--patient's O2 dropped to 90% with ambulation in the ED > plan to admit for further management Differential Diagnosis Differential Diagnoses: The differential diagnosis associated with the presentation includes as per [facility] Admission/Observation Consideration of admission/observation: Escalation of care including admission/observation considered Patient would have been admitted to the hospital and transferred to appropriate facility had their clinical presentation warranted hospital admission. Lab Data [facility] Lab Attestation statement: I reviewed the patient's lab results. as per [facility] 05/10/25 06:18 05/10/25 06:18 Labs: Lab Results 05/09/25 05/09/25 Range/Units 12:50 20:12 WBC 3.6 L (4.8-10.8) X10*3/uL RBC 3.66 L (4.20-5.50) X10*6/uL Hgb 9.9 L (12.0-16.0) g/dl Hct 30.6 L (37.0-47.0) % MCV 83.6 (80.0-98.0) fL MCH 27.0 (27.0-33.0) pg MCHC 32.4 (31.0-35.0) g/dl RDW 18.0 H (11.0-16.0) % Plt Count 139 L (160-400) X10*3/uL MPV 8.7 L (9.4-12.3) fL Immature Gran % (Auto) 0.3 (0.0-0.4) % Neut % (Auto) 87.9 H (45-73) % Lymph % (Auto) 10.4 L (20-40) % [place] % (Auto) 1.4 L (2-11) % Eos % (Auto) 0.0 (0-4) % Baso % (Auto) 0.0 (0-2) % Lymph # (Auto) 0.4 L (1.2-4.9) X10*3/uL [place] # (Auto) 0.1 (0.1-1.2) X10*3/uL Eos # (Auto) 0.0 (0.0-0.4) X10*3/uL Baso # (Auto) 0.0 (0.0-0.2) X10*3/uL Abs Immat Gran (auto) 0.01 (0.00-0.03) X10*3/uL Absolute Neuts (auto) 3.1 (2.0-8.3) x10*3/uL Absolute Nucleated RBC 0.000 (0.0-0.012) X10*3/uL Nucleated RBC % (auto) 0.0 (0.0-0.2) /100WBC Sodium 138 (135-145) mmol/L Potassium 4.0 (3.3-5.1) mmol/L Chloride 107 (96-108) mmol/L Carbon Dioxide 22 (22-29) mmol/L Anion Gap 13 (12-20) BUN 9 (9-16) mg/dL Creatinine 0.64 (0.5-1.4) mg/dL Estim Creat Clear Calc 74.8 Estimated GFR > 60 Random Glucose 100 (60-115) mg/dL Lactic Acid 1.0 (0.5-2.0) mmol/L Calcium 9.6 (8.4-10.2) mg/dL Magnesium 1.8 (1.6-2.6) mg/dL Total Bilirubin 0.5 (0.0-1.0) mg/dL AST 21 (5-31) U/L ALT 8 (0-31) U/L Alkaline Phosphatase 97 (39-117) U/L Troponin I High Sens 8.7 D (<3.5-17.0) ng/L Total Protein 8.1 H (6.5-8.0) g/dL Albumin 3.7 (3.5-5.0) g/dL Urine Color Yellow Urine Appearance Clear Urine pH 7.5 (5.0-9.0) Ur Specific [place] >= 1.030 H (1.005-1.025) Urine Protein Negative (Neg-Trace) mg/dL Urine Glucose (UA) Negative (Negative) mg/dL Urine Ketones Negative (Negative) mg/dL Urine Blood Negative (Negative) Urine Nitrite Negative (Negative) Ur Leukocyte Esterase Negative (Negative) Influenza Type A (PCR) NEGATIVE (Negative) Influenza Type B (PCR) NEGATIVE (Negative) RSV RNA Qual (PCR) NEGATIVE (Negative) SARS-CoV-2 RNA (RT-PCR) NEGATIVE (Negative) Independent Interpretation I performed an independent interpretation of an: CT Scan Interpretation: CT A/P notable for large rectal stool burden with mild rectal wall thickening as well as complete consolidation of the left lung base with volume loss and associated leftward mediastinal shift. Radiology Impression Discussion of test interpretation with radiology: I have reviewed the radiologist's reading. Radiologist Impression: CT abdomen and pelvis with contrast Comparison: CT/REG/SR - CT ABDOMEN PELVIS WITH IV CONTRAST - 09/13/22 11:36 EDT Findings: Complete consolidation of the left lung base with volume loss and associated leftward mediastinal shift. Unremarkable gallbladder and solid organs. No urolithiasis. No bowel obstruction, pneumoperitoneum, or pneumatosis. Sigmoid diverticulosis. Large rectal stool burden with mild rectal wall thickening. Pelvic contents unremarkable. Normal appendix. No acute fracture. IMPRESSION: Large rectal stool burden with mild rectal wall thickening concerning for stercoral colitis. Complete consolidation of the left lung base with volume loss and associated leftward mediastinal shift. Correlate with dedicated chest imaging. Sigmoid diverticulosis without evidence of acute diverticulitis. External Record Review External record reviewed: Inpatient record, Office record and Outpatient record Discharge Plan Discharge Clinical Impression: Stercoral colitis, Lung consolidation Patient Disposition: Admitted As Inpatient Interventions: Admission Worksheet (ED) Last Done: 05/09/25 22:56 Discharge Date/Time: 05/09/25 23:51
--- NOTE | 2025-05-09 12:35 | ECG_ITS ---
Test Reason : dyspnea Blood Pressure : */* mmHG Vent. Rate : 83 BPM Atrial Rate : 83 BPM P-R Int : 150 ms QRS Dur : 82 ms QT Int : 398 ms P-R-T Axes : 70 8 107 degrees QTcB Int : 467 ms Poor data quality, interpretation may be adversely affected Normal sinus rhythm Nonspecific T wave abnormality Abnormal ECG When compared with ECG of 20-Apr-2025 19:11, No significant change was found Referred By: Eugenie Brooks Electronically Signed By: ALEXYS MARTINEZ
--- OUTSIDE RECORDS SUMMARY | 2025-05-09 12:55 | XMS_ITS | Encounter Summary ---
Author Organization [employer] Address [address] [facility] 7t [place] [address] Care Team Providers Care Director Of Leadership Development Name Role Phone Marjan Sams MD Primary Care Provider [phone] Esteban Nice MD Unavailable Ashley Chanel OD Unavailable Alban Koehler Unavailable Sonja Patel MD Unavailable [phone] Jack Lyles Unavailable Reason for Visit * Reason Onset Date Comments Pt1 02/10/2025 Encounter Details Date Type Department Care Team (Late st Contact Info) Description 02/10/2025 Telephone [facility] [address] [place] [address] [phone] Marjan Sams MD [address] [place], [place] [phone] Pt1 Social History Tobacco Use Types Packs/Day [...] 11:24 AM EDT Kalyan Martinez MA * Feeling down, depressed, or hopeless Answer Date of Assessment Author Not at all 03/13/2025 11:24 AM EDT Kalyan Martinez MA * Trouble falling or staying asleep, or sleeping too much Answer Date of Assessment Author Not at all 03/13/2025 11:24 AM Kalyan Cesar MA * Feeling tired or having little energy Answer Date of Assessment Author Not at all 03/13/2025 11:24 AM Kalyan Cesar MA * Poor appetite or overeating Answer Date of Assessment Author Not at all 03/13/2025 11:24 AM Kalyan Cesar MA * Feeling bad about yourself - or that you are a failure or have let yourself or your family down Answer Date of Assessment Author Not at all 03/13/2025 11:24 AM Kalyan Cesar MA * Trouble concentrating on things, such [...] Y/N: Yes Provider name or facility name: [address] [address] [facility] Escort needed: Y/N: No Do you have a wheelchair: Y/N: No If yes- Manual or electric: N/A Visits: 3 x monthly documented in this encounter Plan of Treatment Upcoming Encounters Date Type Department Care Team ([facility] st Contact Info) Description 05/27/2025 4:00 PM EST Telemedicine [facility] [address] [place] [address] Marjan Sams MD [address] [place] [address] documented as of this encounter Visit Diagnoses Not on filedocumented in this encounter Additional Health Concerns Assessment Noted Time PHQ-9 Depression Total Score: 4 02/13/20 24 9:45 AM EDT documented as of this encounter Care Teams Director Of Leadership Development Relationship Specialty Start Date End Date Marjan Sams MD [address] [place], [place] [phone] PCP - General Family Medicine 06/04/18 Esteban Nice MD [address] [address] Rheumatology 05/21/24 Ashley Chanel OD [address] [place] [address] Optometry 05/21/24 Alban Koehler 175 [facility] [address] [place] [address] Podiatry 10/08/24 Sonja Patel MD [address] [place] [address] Hematology and Oncology 02/26/25 Jack Lyles 299 [facility] [address] [place], [place] [address] Thoracic Surgery 02/26/25 Dea Hewitt MD Rheumatology 10/06/24 documented as of this encounter
--- OUTSIDE RECORDS SUMMARY | 2025-05-09 12:55 | XMS_ITS | Encounter Summary ---
Author Organization [employer] Address [address] [facility] 7t [place] [address] Care Team Providers Care Dramatic Art Teacher Name Role Phone Marjan Sams MD Primary Care Provider [phone] Esteban Nice MD Unavailable Ashley Chanel OD Unavailable [phone] Alban Koehler Unavailable Sonja Patel MD Unavailable [phone] Jack Lyles Unavailable Reason for Visit * Reason Onset Date Comments Med Refill 01/21/2024 Encounter Details Date Type Department Care Team (Late st Contact Info) Description 01/21/2024 Telephone [facility] [address] [place] [address] [phone] Marjan Sams MD [address] [place], [place] [phone] Med Refill Social History Tobacco Use Types [...] tablet To be sent to: [facility] documented in this encounter Plan of Treatment Upcoming Encounters Date Type Department Care Team (Late st Contact Info) Description 05/27/2025 4:00 PM EST Telemedicine [facility] [address] [place] [address] Marjan Sams MD [address] [place] [address] documented as of this encounter Visit Diagnoses Not on filedocumented in this encounter Additional Health Concerns Assessment Noted Time PHQ-9 Depression Total Score: 0 11/04/19 23 10:28 AM EDT documented as of this encounter Care Teams Dramatic Art Teacher Relationship Specialty Start Date End Date Marjan Sams MD [address] [place] [address] PCP - General Family Medicine 06/04/18 Esteban Nice MD [address] [place] [address] [address] [place] [address] Rheumatology 05/21/24 Ashley Chanel OD 180 [place] [address] Optometry 05/21/24 Alban Koehler 175 [facility] 110 [place] [address] Podiatry 10/08/24 Sonja Patel MD [address] [place] [address] Hematology and Oncology 02/26/25 Jack Lyles 299 [facility] [address] [place], [place] [address] Thoracic Surgery 02/26/25 Dea Hewitt MD Rheumatology 10/06/24 documented as of this encounter
--- OUTSIDE RECORDS SUMMARY | 2025-05-09 12:55 | XMS_ITS | Encounter Summary ---
Author Organization [employer] Address [address] [facility] 7[address] [place] [address] Care Team Providers Care Log Haul Chain Feeder Name Role Phone Marjan Sams MD Primary Care Provider [phone] Esteban Nice MD Unavailable Ashley Chanel OD Unavailable [phone] Alban Koehler Unavailable Sonja Patel MD Unavailable [phone] Jack Lyles Unavailable Reason for Visit * Reason Comments Med Refill Encounter Details Date Type Department Care Team (Late st Contact Info) Description 02/10/2025 Refill [facility] [address] [place] [address] Marjan Sams MD [address] [place] [address] Tobacco dependence syndrome Social History Tobacco Use [...] Info) Description 05/27/2025 4:00 PM EST Telemedicine [facility] [address] [place] [address] Marjan Sams MD [address] [place] [address] documented as of this encounter Visit Diagnoses Diagnosis Tobacco dependence syndrome Tobacco use disorder documented in this encounter Additional Health Concerns Assessment Noted Time PHQ-9 Depression Total Score: 4 02/13/20 24 9:45 AM EDT documented as of this encounter Care Teams Log Haul Chain Feeder Relationship Specialty Start Date End Date Marjan Sams MD [address] [place] [address] PCP - General Family Medicine 06/04/18 Esteban Nice MD [address] [place] [address] Rheumatology 05/21/24 Ashley Chanel OD 180 [place] [address] Optometry 05/21/[address] [facility] 110 [place] [address] Podiatry 10/08/24 Sonja Patel MD [address] [place] [phone] Hematology and Oncology 02/26/25 Jack Lyles 299 [facility] 410 [place], [place] [address] Thoracic Surgery 02/26/25 Dea Hewitt MD Rheumatology 10/06/24 documented as of this encounter
--- OUTSIDE RECORDS SUMMARY | 2025-05-09 12:56 | XMS_ITS | Encounter Summary ---
Author Organization [employer] Address 75 [facility] 7t [place] [address] Care Team Providers Care Phone Engineer Name Role Phone Marjan Sams MD Primary Care Provider +1- [phone] Esteban Nice MD Unavailable Ashley Chanel OD Unavailable [phone] Alban Koehler Unavailable Sonja Patel MD Unavailable [phone] Jack Lyles Unavailable Encounter Details Date Type Department Care Team (Late st Contact Info) Description 02/25/2025 Orders Only [facility] 230 [place] [address] Provider, MD Yoseph Social History Tobacco Use [...] Info) Description 05/27/2025 4:[address] [facility] MEDICINE 230 [place] [address] Marjan Sams MD 230 [place] [address] documented as of this encounter Procedures Procedure [...] documented as of this encounter Care Teams Phone Engineer Relationship Specialty Start Date End Date Marjan Sams MD 230 [place] [address] PCP - General Family Medicine 06/04/18 Esteban Nice MD [address] [place] [address] 402 [place] [address] Rheumatology 05/21/24 Ashley Chanel OD 180 [place] [address] Optometry 05/21/24 Alban Koehler 175 [facility] 110 [place] [address] Podiatry 10/08/24 Sonja Patel MD [address] [place] [address] Hematology and Oncology 02/26/25 Jack Lyles 299 [facility] 410 [place], [place] 1104 Thoracic Surgery 02/26/25 Dea Hewitt MD Rheumatology 10/06/24 documented as of this encounter
--- OUTSIDE RECORDS SUMMARY | 2025-05-09 12:56 | XMS_ITS | Encounter Summary ---
Author Organization [employer] Address 75 [facility] 7t [place] [address] Care Team Providers Care Farmer Cash Grain Name Role Phone Marjan Sams MD Primary Care Provider +1- [phone] Esteban Nice MD Unavailable Ashley Chanel OD Unavailable [phone] Alban Koehler Unavailable Sonja Patel MD Unavailable [phone] Jack Lyles Unavailable Reason for Visit * Reason Onset Date Comments Med Refill 01/19/2023 Encounter Details Date Type Department Care Team (Late st Contact Info) Description 01/19/2023 Telephone [facility] MEDICINE [address] [place] [address] Marjan Sams MD 230 [place], [place] [phone] Med Refill Social History Tobacco Use Types [...] (Percocet) 5-325 MG tablet Please sent to [facility]/pharmacy #[id number] - [place] - [address] [facility] documented in this encounter Plan of Treatment Upcoming Encounters Date Type Department Care Team (Late st Contact Info) Description 05/27/2025 4:00 PM EST Telemedicine [facility] MEDICINE 230 [place] [address] Marjan Sams MD 230 [place] [address] documented as of this encounter Visit Diagnoses Not on filedocumented in this encounter Additional Health Concerns Assessment Noted Time PHQ-9 Depression Total Score: 0 11/04/19 23 10:28 AM EDT documented as of this encounter Care Teams Farmer Cash Grain Relationship Specialty Start Date End Date Marjan Sams MD 230 [place] [address] PCP - General Family Medicine 06/04/18 Esteban Nice MD [address] [place] [address] Rheumatology 05/21/24 Ashley Chanel OD 180 [place] [address] Optometry 05/21/24 Alban Koehler [address] [address] Podiatry 10/08/24 Sonja Patel MD [address] [place] [address] Hematology and Oncology 02/26/25 Jack Lyles 299 [place] [address] Thoracic Surgery 02/26/25 Dea Hewitt MD Rheumatology 10/06/24 documented as of this encounter
--- OUTSIDE RECORDS SUMMARY | 2025-05-09 12:56 | XMS_ITS | Encounter Summary ---
Author Organization [employer] Address 75 [facility] 7t [place] [address] Care Team Providers Care Fagot Heater Helper Name Role Phone Marjan Sams MD Primary Care Provider +1- [phone] Esteban Nice MD Unavailable Ashley Chanel OD Unavailable [phone] Alban Koehler Unavailable Sonja Patel MD Unavailable [phone] Jack Lyles Unavailable Reason for Visit * Reason Comments Med Refill Encounter Details Date Type Department Care Team (Late st Contact Info) Description 10/19/2023 Refill [facility] MEDICINE 230 [place] [address] Lluvia Mendoza MD 230 [place] [address] History of DVT (deep vein thrombosis) Social [...] the past 12 months, has t he [employer], gas, oil or water company threatened to [...] Info) Description 05/27/2025 4:00 PM EST Telemedicine [facility] MEDICINE [address] [place] [address] Marjan Sams MD [address] [place] [address] documented as of this encounter Visit Diagnoses Diagnosis History of DVT (deep vein thrombosis) documented in this encounter Additional Health Concerns Assessment Noted Time PHQ-9 Depression Total Score: 0 11/04/19 23 10:28 AM EDT documented as of this encounter Care Teams Fagot Heater Helper Relationship Specialty Start Date End Date Marjan Sams MD 230 [place] [address] PCP - General Family Medicine 06/04/18 Esteban Nice MD [address] [place] [address] [place] [address] Rheumatology 05/21/24 Ashley Chanel OD 180 [place] [address] Optometry 05/21/24 Alban Koehler 175 [facility] 110 [place] [address] Podiatry 10/08/24 Sonja Patel MD [address] [place] [address] Hematology and Oncology 02/26/25 Jack Lyles [address] 1104 Thoracic Surgery 02/26/25 Dea Hewitt MD Rheumatology 10/06/24 documented as of this encounter
--- OUTSIDE RECORDS SUMMARY | 2025-05-09 12:56 | XMS_ITS | Encounter Summary ---
Author Organization [employer] Address 75 [facility] 7t [place] [address] Care Team Providers Care Automated Weaver Name Role Phone Marjan Sams MD Primary Care Provider +1- [phone] Esteban Nice MD Unavailable Ashley Chanel OD Unavailable [phone] Alban Koehler Unavailable Sonja Patel MD Unavailable [phone] Jack Lyles Unavailable Encounter Details Date Type Department Care Team (Late st Contact Info) Description 06/29/2022 Abstract [facility] MEDICINE [address] [place] [address] [phone] Marjan Sams MD [address] [place] [address] [phone] Social History Tobacco Use Types Packs/Day Years [...] Info) Description 05/27/2025 4:00 PM EST Telemedicine [facility] MEDICINE [address] [place] [address] [phone] Marjan Sams MD [address] [place] [address] documented as of this encounter Procedures Procedure [...] on filedocumented in this encounter Care Teams Automated Weaver Relationship Specialty Start Date End Date Marjan Sams MD 230 [place] [address] PCP - General Family Medicine 06/04/18 Esteban Nice MD [address] [place] [address] 402 [place] [address] Rheumatology 05/21/24 Ashley Chanel OD 180 [place] [address] Optometry 05/21/24 Alban Koehler 175 [facility] 110 [place] [address] Podiatry 10/08/24 Sonja Patel MD [address] [place] [address] Hematology and Oncology 02/26/25 Jack Lyles 299 [facility] 410 [place], [place] 110 Thoracic Surgery 02/26/25 Dea Hewitt MD Rheumatology 10/06/24 documented as of this encounter
--- OUTSIDE RECORDS SUMMARY | 2025-05-09 12:56 | XMS_ITS | Encounter Summary ---
Author Organization [employer] Address 75 [facility] 7t [place] [address] Care Team Providers Care Radiology Clerk Name Role Phone Marjan aSms MD Primary Care Provider +1- [phone] Esteban Nice MD Unavailable Ashley Chanel OD Unavailable [phone] Alban Koehler Unavailable Sonja Patel MD Unavailable [phone] Jack Lyles Unavailable Reason for Visit * Reason Onset Date Comments PT1 04/17/2025 Encounter Details Date Type Department Care Team (Late st Contact Info) Description 04/17/2025 Telephone [facility] MEDICINE [address] [place] [address] [phone] Marjan Sams MD 230 [place], [place] [phone] PT1 Social History Tobacco Use Types Packs/Day [...] * Telephone Encounter - Giovanna Childers - 04/17/2025 8:10 AM EST Patient calling requesting PT1 Home Address verified: Y/N: Yes Provider name or facility name: [address], [place] [address] Escort needed: Y/N: Yes Do you have a wheelchair: Y/N: No If yes- Manual or electric: N/A Visits 3 x monthly documented in this encounter Plan of Treatment Upcoming Encounters Date Type Department Care Team (Late st Contact Info) Description 05/27/2025 4:00 PM EST Telemedicine [facility] MEDICINE 230 [place] [address] Marjan Sams MD 230 [place], [place] [phone] documented as of this encounter Visit Diagnoses Not on filedocumented in this encounter Additional Health Concerns Assessment Noted Time PHQ-9 Depression Total Score: 0 03/13/20 11:24 AM EDT documented as of this encounter Care Teams Radiology Clerk Relationship Specialty Start Date End Date Marjan Sams MD 230 [place], [place] [phone] PCP - General Family Medicine 06/04/18 Esteban Nice MD [address] [phone] Rheumatology 05/21/24 Ashley Chanel OD 180 [place] [address] Optometry 05/21/24 Alban Koehler 175 [facility] 110 [place] [address] Podiatry 10/08/24 Sonja Patel MD [address] [place] [address] Hematology and Oncology 02/26/25 Jack Lyles [address] 110 Thoracic Surgery 02/26/25 Dea Hewitt MD Rheumatology 10/06/24 documented as of this encounter
--- OUTSIDE RECORDS SUMMARY | 2025-05-09 12:56 | XMS_ITS | Encounter Summary ---
Author Organization [employer] Address 75 [facility] 7t [place] [address] Care Team Providers Care Operater Name Role Phone Marjan Sams MD Primary Care Provider +1- [phone] Esteban Nice MD Unavailable Ashley Chanel OD Unavailable [phone] Alban Koehler Unavailable Sonja Patel MD Unavailable [phone] Jack Lyles Unavailable Reason for Visit * Reason Onset Date Comments Med Refill 02/21/2024 Encounter Details Date Type Department Care Team (Late st Contact Info) Description 02/21/2024 Telephone [facility] MEDICINE [address] [place] [address] Marjan Sams MD 230 [place], [place] [phone] Med Refill Social History Tobacco Use Types [...] 5-325 MG tablet To be sent to: [facility]/pharmacy #[id number] [place], [place] - [address] [place] [address] documented in this encounter Plan of Treatment Upcoming Encounters Date Type Department Care Team (Late st Contact Info) Description 05/27/2025 4:00 PM EST Telemedicine [facility] MEDICINE 230 [place] [address] Marjan Sams MD 230 [place] [address] documented as of this encounter Visit Diagnoses Not on filedocumented in this encounter Additional Health Concerns Assessment Noted Time PHQ-9 Depression Total Score: 4 02/13/20 24 9:45 AM EDT documented as of this encounter Care Teams Operater Relationship Specialty Start Date End Date Marjan Sams MD 230 [place] [address] PCP - General Family Medicine 06/04/18 Esteban Nice MD [address] 402 [place] [address] Rheumatology 05/21/24 Ashley Chanel OD 180 [place] [address] Optometry 05/21/24 Alban Koehler 175 [facility] 110 [place] [address] Podiatry 10/08/24 Sonja Patel MD [address] [place] [address] Hematology and Oncology 02/26/25 Jack Lyles 299 [facility] 410 [place], [place] 1104 Thoracic Surgery 02/26/25 Dea Hewitt MD Rheumatology 10/06/24 documented as of this encounter
--- OUTSIDE RECORDS SUMMARY | 2025-05-09 12:56 | XMS_ITS | Encounter Summary ---
Author Organization [employer] Address 75 [facility] 7t [place] [address] Care Team Providers Care Burnisher Name Role Phone Marjan Sams MD Primary Care Provider +1- [phone] Esteban Nice MD Unavailable Ashley Chanel OD Unavailable [phone] Alban Koehler Unavailable Sonja Patel MD Unavailable [phone] Jack Lyles Unavailable Reason for Visit * Reason Onset Date Comments [employer] Set-up 01/23/2024 Encounter Details Date Type Department Care Team (Late st Contact Info) Description 01/23/2024 Telephone [facility] MEDICINE [address] [place] [address] Marjan Sams MD 230 [place], [place] [phone] Uber Set-up Social History Tobacco Use Types [...] the past 12 months, has t he [employer], gas, oil or water [email or web address] threatened to shut off services in your [...] request a uber set-up for 01/29 appt sign writer hand did confirm address and call back number documented in this encounter Plan of Treatment Upcoming Encounters Date Type Department Care Team (Late st Contact Info) Description 05/27/2025 4:00 PM EST Telemedicine [facility] MEDICINE 230 [place] [address] Marjan Sams MD 230 [place] [address] documented as of this encounter Visit Diagnoses Not on filedocumented in this encounter Additional Health Concerns Assessment Noted Time PHQ-9 Depression Total Score: 0 11/04/19 23 10:28 AM EDT documented as of this encounter Care Teams Burnisher Relationship Specialty Start Date End Date Marjan Sams MD 230 [place] [address] PCP - General Family Medicine 06/04/18 Esteban Nice MD [address] 402 [place] [address] Rheumatology 05/21/24 Ashley Chanel OD 180 [place] [address] Optometry 05/21/24 Alban Koehler 175 [facility] 110 [place] [address] Podiatry 10/08/24 Sonja Patel MD [address] [place] [address] Hematology and Oncology 02/26/25 Jack Lyles 299 [facility] 410 [place], [place] 1104 Thoracic Surgery 02/26/25 Dea Hewitt MD Rheumatology 10/06/24 documented as of this encounter
--- OUTSIDE RECORDS SUMMARY | 2025-05-09 12:56 | XMS_ITS | Encounter Summary ---
Author Organization [employer] Address 75 [facility] 7t [place] [address] Care Team Providers Care Survey Instrument Operator Name Role Phone Marjan Sams MD Primary Care Provider +- [phone] Esteban Nice MD Unavailable Ashley Chanel OD Unavailable [phone] Alban Koehler Unavailable Sonja Patel MD Unavailable [phone] Jack Lyles Unavailable Encounter Details Date Type Department Care Team (Late st Contact Info) Description 03/22/2023 Abstract [facility] MEDICINE 230 [place], [place] [phone] Marjan Sams MD 230 [place], [place] [phone] Preventative health care; Osteoarthritis of knee, unspecified [...] Info) Description 05/27/2025 4:00 PM EST Telemedicine [facility] MEDICINE [address] [place] [address] Marjan Sams MD 230 [place] [address] documented as of this encounter Visit Diagnoses Diagnosis Preventative health care Routine general medical examination at a health care facility Osteoarthritis of knee, unspecified laterality, unspecified osteoarthritis type documented in this encounter Additional Health Concerns Assessment Noted Time PHQ-9 Depression Total Score: 0 11/04/19 23 10:28 AM EDT documented as of this encounter Care Teams Survey Instrument Operator Relationship Specialty Start Date End Date Marjan Sams MD [address] [place] [address] PCP - General Family Medicine 06/04/18 Esteban Nice MD [address] [place] [address] Rheumatology 05/21/24 Ashley Chanel OD 180 [place] [address] Optometry 05/21/24 Alban Koehler 175 [facility] 110 [place] [address] Podiatry 10/08/24 Sonja Patel MD [address] [place] [address] Hematology and Oncology 02/26/25 Jack Lyles [address] 1104 Thoracic Surgery 02/26/25 Dea Hewitt MD Rheumatology 10/06/24 documented as of this encounter
--- OUTSIDE RECORDS SUMMARY | 2025-05-09 12:57 | XMS_ITS | Clinical Summary ---
Author Organization 175 [facility] Address 175 [place] [address] Phone Care Team Providers Care Shift Foreman Name Role Phone AlexisElizabeth curran Primary Care Provider +1- [phone] Allergies No known active allergies Encounters Date Type Department Care Team Description 02/24/2025 8:43 AM EDT - 02/24/2025 11:59 PM EDT Hospital Encounter [facility] PET Scan [address] [place] [address] Abnormal radiologic finding of lung [...] Signed Date: 02/24/2025 12:37 ET Workstation ID: [id number] Transcribed By: Self Edit Transcribed Date: 02/24/2025 [...] Signed Date: 02/24/2025 12:37 ET Workstation ID: [id number] Transcribed By: Self Edit Transcribed Date: 02/24/2025 12:20 ET us Yann Fu MD IMG NM PROCEDURES Final Result from Last 3 Months Insurance [employer] MEDICARE ADVANTAGE MEDICAID - [place] Care Teams Shift Foreman Relationship Specialty Start Date End Date Elizabeth Ly DO [address] [place] [address] PCP - General Family Medicine 10/02/24
--- OUTSIDE RECORDS SUMMARY | 2025-05-09 12:57 | XMS_ITS | Encounter Summary ---
Author Organization [employer] Address 75 [facility] 7t [place] [address] Care Team Providers Care Reel And Rewinder Operator Name Role Phone Marjan Sams MD Primary Care Provider +1- [phone] Esteban Nice MD Unavailable Ashley Chanel OD Unavailable [phone] Alban Koehler Unavailable Sonja Patel MD Unavailable Jack Lyles Unavailable Reason for Visit * Reason Onset Date Comments Med Refill 05/06/2025 Encounter Details Date Type Department Care Team (Late st Contact Info) Description 05/06/2025 Refill [facility] MEDICINE 230 [place] [address] Jacey Metcalf ANP 230 [place] [address] Squamous cell carcinoma lung, left (CMS/HCC) (HCC) Social History Tobacco Use Types Packs/Day Years [...] Info) Description 05/27/2025 4:00 PM EST Telemedicine [facility] MEDICINE 230 [place] [address] Marjan Sams MD 230 [place] [address] documented as of this encounter Visit Diagnoses Diagnosis Squamous cell carcinoma lung, left (CMS/HCC) (HCC) documented in this encounter Additional Health Concerns Assessment Noted Time PHQ-9 Depression Total Score: 0 03/13/20 25 11:24 AM EDT documented as of this encounter Care Teams Reel And Rewinder Operator Relationship Specialty Start Date End Date Marjan Sams MD 230 [place] [address] PCP - General Family Medicine 06/04/18 Esteban Nice MD [address] [address] Rheumatology 05/21/24 Ashley Chanel OD 180 [place] [address] Optometry 05/21/24 Alban Koehler 175 [facility] 110 [place] [address] Podiatry 10/08/24 Sonja Patel MD [address] [place] [address] Hematology and Oncology 02/26/25 Jack Lyles 299 [facility] 410 [place], [place] 1104 Thoracic Surgery 02/26/25 Dea Hewitt MD Rheumatology 10/06/24 documented as of this encounter
--- OUTSIDE RECORDS SUMMARY | 2025-05-09 12:57 | XMS_ITS | Encounter Summary ---
Author Organization [employer] Address 75 [facility] 7t [place] [address] Care Team Providers Care Non Destructive Testing Inspector Name Role Phone Marjan Sams MD Primary Care Provider +1- [phone] Esteban Nice MD Unavailable Ashley Chanel OD Unavailable [phone] Alban Koehler Unavailable Sonja Patel MD Unavailable [phone] Jack Lyles Unavailable Reason for Visit * Reason Onset Date Comments pt1 03/17/2025 Encounter Details Date Type Department Care Team (Late st Contact Info) Description 03/17/2025 Telephone [facility] MEDICINE [address] [place] [address] [phone] Marjan Sams MD 230 [place], [place] [phone] pt1 Social History Tobacco Use Types Packs/Day [...] Y/N: Yes Provider name or facility name: [address] [address] Escort needed: Y/N: Yes Do you have a wheelchair: Y/N: No If yes- Manual or electric: Visits: 5x documented in this encounter Plan of Treatment Upcoming Encounters Date Type Department Care Team (Late st Contact Info) Description 05/27/2025 4:00 PM EST Telemedicine [facility] MEDICINE 230 [place] [address] Marjan Sams MD 230 [place] [address] documented as of this encounter Visit Diagnoses Not on filedocumented in this encounter Additional Health Concerns Assessment Noted Time PHQ-9 Depression Total Score: 0 03/13/20 11:24 AM EDT documented as of this encounter Care Teams Non Destructive Testing Inspector Relationship Specialty Start Date End Date Marjan Sams MD 230 [place], [place] [phone] PCP - General Family Medicine 06/04/18 Esteban Nice MD [address] [phone] Rheumatology 05/21/24 Ashley Chanel OD 180 [place] [address] Optometry 05/21/24 [address] 175 [facility] 110 [place] [address] Podiatry 10/08/24 Sonja Patel MD [address] [place] [address] Hematology and Oncology 02/26/25 Jack Lyles [address] 110 Thoracic Surgery 02/26/25 Dea Hewitt MD Rheumatology 10/06/24 documented as of this encounter
--- OUTSIDE RECORDS SUMMARY | 2025-05-09 12:57 | XMS_ITS | Encounter Summary ---
Author Organization [employer] Address 75 [facility] 7t [place] [address] Care Team Providers Care Tree Warden Name Role Phone Marjan Sams MD Primary Care Provider +1- [phone] Esteban Nice MD Unavailable Ashley Chanel OD Unavailable [phone] Alban Koehler Unavailable Sonja Patel MD Unavailable [phone] Jack Lyles Unavailable Reason for Visit * Reason Comments Med Refill Encounter Details Date Type Department Care Team (Late st Contact Info) Description 07/25/2023 Refill [facility] MEDICINE 230 [place], [place] [phone] Marjan Sams MD 230 [place], [place] [phone] Arthritis of both knees Social History Tobacco [...] the past 12 months, has t he [employer], gas, oil or water company threatened to [...] Info) Description 05/27/2025 4:00 PM EST Telemedicine [facility] MEDICINE [address] [place] [address] Marjan Sams MD [address] [place] [address] documented as of this encounter Visit Diagnoses Diagnosis Arthritis of both knees documented in this encounter Additional Health Concerns Assessment Noted Time PHQ-9 Depression Total Score: 0 11/04/19 23 10:28 AM EDT documented as of this encounter Care Teams Tree Warden Relationship Specialty Start Date End Date Marjan Sams MD [address] [place] [address] PCP - General Family Medicine 06/04/18 Esteban Nice MD [address] [place] [address] Rheumatology 05/21/24 Ashley Chanel OD 180 [place] [address] Optometry 05/21/24 Alban Koehler 175 [facility] 110 [place] [address] Podiatry 10/08/24 Sonja Patel MD [address] [place] [address] Hematology and Oncology 02/26/25 Jack Lyles [address] 1104 Thoracic Surgery 02/26/25 Dea Hewitt MD Rheumatology 10/06/24 documented as of this encounter
--- OUTSIDE RECORDS SUMMARY | 2025-05-09 12:57 | XMS_ITS | Clinical Summary ---
Author Organization [facility] Address [address] [address] [place] [address] Care Team Providers Care Organ Assembler Name Role Phone Marjan Sams MD Primary Care Provider [phone] Esteban Nice MD Unavailable Ashley Chanel OD Unavailable [phone] Alban Koehler Unavailable Sonja Patel MD Unavailable [phone] Jakc Lyles Unavailable Allergies No known active allergies Medications hydroxychloroq uine (Plaquenil) 200 MG tabletIndicati ons:Systemic lupus erythematosus, unspecified SLE type, unspecified organ involvement status (CMS/HCC) ([facility]) Take 200 mg by mouth 2 times daily. Per rheumatology Active naloxone (Narcan) 4 mg/0.1 mL nasal sprayIndicatio ns:Chronically on opiate therapy Administer 1 spray (4 mg) into affected nostril(s) if needed for opioid reversal. 2 each 02/13/20 24 Active Fluticasone Furoate-Vilant sugar (Breo Ellipta) 200-25 MCG/ACT aerosol powderIndicati ons:Chronic obstructive pulmonary disease, unspecified COPD type (CMS/HCC) ([facility]) Inhale 1 Inhalation. Once per day. 1 each 02/13/20 24 Active albuterol 108 (90 Base) MCG/ACT inhalerIndicat ions:Chronic obstructive pulmonary disease, unspecified COPD type (CMS/HCC) ([facility]) Take 2 puffs po q [...] DAY. 90 tablet 3 02/05/20 25 Active levalbuterol (Xopenex) 1.25 MG/3ML nebulizer solutionIndica tions:Mild asthma with acute exacerbation, unspecified whether persistent USE 3 ML BY NEBULIZATION ROUTE EVERY 4 HOURS NEEDED 90 mL 03/20/20 25 Active oxyCODONE-acet aminophen (Percocet) 5-325 MG tabletIndicati ons:Arthritis of both knees Take 1 tablet by mouth every 12 (twelve) hours if needed for severe pain. 56 tablet 04/20/20 25 Active morphine (MSIR) 15 MG tabletIndicati ons:Pain Take 1 tablet (15 mg) by mouth if needed in the morning and at bedtime for severe pain. Pt will take Percocet for moderate pain and Morphine for severe pain. Diagnosis metastatic lung cancer. She is aware not to take the medicaions together Do not start before May 08, 2025. 60 tablet 05/08/20 25 2025 Active morphine (MSIR) 15 MG tabletIndicati ons:Pain Take 1 tablet (15 mg) by mouth if needed in the morning and at bedtime for severe pain. Pt will take Percocet for moderate pain and Morphine for severe pain. Diagnosis metastatic lung cancer. She is aware not to take the medicaions together 60 tablet 03/12/20 25 2024 Discontinued(R eorder (will not trigger notification to Pharmacy)) oxyCODONE-acet aminophen (Percocet) 5-325 MG tabletIndicati ons:Arthritis of both knees Take 1 tablet by mouth every 12 (twelve) hours if needed for severe pain. 56 tablet 03/18/20 25 2024 Discontinued(R eorder (will not trigger notification to Pharmacy)) morphine (MSIR) 15 MG tabletIndicati ons:Pain Take 1 tablet (15 mg) by mouth if needed in the morning and at bedtime for severe pain. Pt will take Percocet for moderate pain and Morphine for severe pain. Diagnosis metastatic lung cancer. She is aware not to take the medicaions together 60 tablet 04/10/20 25 2024 Discontinued(R eorder (will not trigger notification to Pharmacy)) Active Problems Patient Care Coordination No te Formatting of this note migh t be different from the original. C3/CM Millie Whiteside RN Problem Noted Date Diagnosed Date Retinal artery occlusion 04/21/2025 Overview (04/28/2025): Seen by Dr. Chiara Thomas MD 04/20/25 embolus seen on superior arcade of right eye. Advise ER to r/o stroke. Pt seen in ER and imagine ordered. Consider giant cell arteritis recommending carotid doppler, echocardiogram, MRI of the brain and orbits without contrast. Lab work up with ESR, CBC, CRP with temporal artery biopsy if clinically indicated. -admitted to [facility] 04/20/25 -ESR 86 04/20/25 -MRI 04/21/25 No acute brain abnormality. Old lacunar infarcts suggesting small vessel occlusive disease. -echo done -neurology consult recommended 7 day Holter monitor -Atorvastatin 40mg started 04/20/25 -continue ASA 81 mg daily -note from Phillip Rousseau 04/24/25 Right branch retinal artery occlusion diagnosed 04/20/2025. She underwent of CTA of neck which showed no acute vascular abnormalities. Brain MRI showed old lacunar infarcts suggesting small vessel occlusive disease. EKG and echocardiogram showed normal sinus rhythm and no cardiac source of embolic disease. She has her underlying hypercoagulable state because of cancer, sickle cell trait as well as SLE. It is not clear if BRAO occurred as a result of chemotherapy. Since this happened by alone baby aspirin, I will start her on anticoagulation with Eliquis. Patient also gives a history of DVT in 2015. Assessment & Plan (04/27/2025 11:55 AM EST): Seen by Dr. Chiara Thomas MD 04/20/25 embolus seen on superior arcade of right eye. Advise ER to r/o stroke. Pt seen in ER and imagine ordered. Consider giant cell arteritis recommending carotid doppler, echocardiogram, MRI of the brain and orbits without contrast. Lab work up with ESR, CBC, CRP with temporal artery biopsy if clinically indicated. -admitted to [facility] 04/20/25 -ESR 86 04/20/25 -MRI 04/21/25 No acute brain abnormality. Old lacunar infarcts suggesting small vessel occlusive disease. -echo done -neurology consult recommended 7 day Holter monitor -Atorvastatin 40mg started 04/20/25 -continue ASA 81 mg daily Squamous cell carcinoma lung, left (CMS/HCC) Overview (04/14/2025): -CT scan for tobacco screening 01/27/25 revealed [...] Decreased diffusion capacity, 27%, suggests emphysema. -start dgsghmmcljm-wffueyfze-xvtdzpuw 200-62.5-25 mcg (Trelegy Ellipta) 1 inh inhalation DAILY 60 ea 3RF 02/24/25 -establish with oncologist, Dr. Sanabria 02/26/25 -PET-CT performed at [facility] 02/24/2025 revealed complete left upper lobe collapse [...] [facility]. -MRI brain 03/06/25 MR/MR [...] the two together. Has narcan at home. -Patient started 1st cycle of chemotherapy 03/19/25 Tolerated pembrolizumab but she was unable to tolerate Taxol. She developed allergic reaction with facial flushing, hypertension and sweating an hour after infusion. Medication was stopped and she was given extra doses of IV Benadryl and hydrocortisone. When her symptoms resolved this was started again but within 10 minutes she had recurrent symptoms of facial flushing, blood pressure went up to 180s systolic and patient was not feeling good. Three attempts were made to start Taxol but patient has not been able to tolerate it. I had requested Abraxane but insurance carrier had denied it, appeal is being made to get approval for Abraxane. -s/p port placement 04/08/25 -onc note 04/12/25 She received 1st cycle chemo-immune therapy on 03/19/2025. Her health insurance denied Abraxane therefore she received Taxol. Unfortunately, she developed allergic reaction with facial flushing, hypertension, diaphoresis. Symptoms improved with IV Benadryl and hydrocortisone. Symptoms returned within 10 minutes of restarting Taxol. Abraxane was approved for cycle 2. Assessment & Plan (04/27/2025 11:55 AM EST): -CT scan for tobacco screening 01/27/25 revealed [...] Decreased diffusion capacity, 27%, suggests emphysema. -start wwsinqtxbgz-orrohgobj-tisfkdnq 200-62.5-25 mcg (Trelegy Ellipta) 1 inh inhalation DAILY 60 ea 3RF 02/24/25 -establish with oncologist, Dr. Sanabria 02/26/25 -PET-CT performed at [facility] 02/24/2025 revealed complete left upper lobe collapse [...] [facility]. -MRI brain 03/06/25 MR/MR [...] the two together. Has narcan at home. -Patient started 1st cycle of chemotherapy 03/19/25 Tolerated pembrolizumab but she was unable to tolerate Taxol. She developed allergic reaction with facial flushing, hypertension and sweating an hour after infusion. Medication was stopped and she was given extra doses of IV Benadryl and hydrocortisone. When her symptoms resolved this was started again but within 10 minutes she had recurrent symptoms of facial flushing, blood pressure went up to 180s systolic and patient was not feeling good. Three attempts were made to start Taxol but patient has not been able to tolerate it. I had requested Abraxane but insurance carrier had denied it, appeal is being made to get approval for Abraxane. -s/p port placement 04/08/25 -onc note 04/12/25 She received 1st cycle chemo-immune therapy on 03/19/2025. Her health insurance denied Abraxane therefore she received Taxol. Unfortunately, she developed allergic reaction with facial flushing, hypertension, diaphoresis. Symptoms improved with IV Benadryl and hydrocortisone. Symptoms returned within 10 minutes of restarting Taxol. Abraxane was approved for cycle 2. Assessment & Plan (03/13/2025 10:12 AM EDT): [...] Decreased diffusion capacity, 27%, suggests emphysema. -start xqxfhpcicku-ojwihovtr-hpjqqmxv 200-62.5-25 mcg (Trelegy Ellipta) 1 inh inhalation DAILY 60 ea 3RF 02/24/25 -establish with oncologist, Dr. Sanabria 02/26/25 -PET-CT performed at [facility] 02/24/2025 revealed complete left upper lobe collapse [...] [facility]. -MRI brain 03/06/25 MR/MR [...] ortho placed 09/03/24 -Seen by Dr. Koehler lead database administrator at [facility] , no changes Assessment & Plan [...] care facilitated by [facility] in [facility] is [facility] -health care proxy: pt reports has at home 06/25/23 Assessment & Plan (10/01/2024 2:58 PM EDT): -next comprehensive annual evaluation due after 10/01/25 -eye care facilitated by [facility] in [facility] is [facility] -health care proxy: pt reports has at home 06/25/23 Assessment & Plan (06/25/2023 11:24 AM EST): -next physical exam due after 06/25/24 -eye care facilitated by [facility] in [place] -dental home is [facility] -health care proxy: pt reports has at home 06/25/23 Diverticulitis 10/02/2022 Primary osteoarthritis of hands, bilateral 10/02 COPD (chronic obstructive pulmonary disease) 06/2022 Overview (04/22/2025): Moderate to severe PFTs 09/01/2019 FEV1/FVC 66% No significant response to bronchodilators noted. -Continue Breo (LABA/ICS) started in hospital 07/2019 250 once a day -Continue albuterol via neb prn -She is going great with cutting down [...] as pharmacomtherapy, [facility], and [facility] pharmacy smoking cessation clinic Discussed USPSTF [...] as pharmacomtherapy, [facility], and [facility] pharmacy smoking cessation clinic [facility] annual lung cancer screening with low [...] as pharmacomtherapy, [facility], and [facility] pharmacy smoking cessation clinic Discussed USPSTF [...] medications Systemic lupus erythematosus (CMS/HCC) 2 Overview (04/24/2025): Onset 2014 (intermittent leukopenia, oral ulcers, bilateral elbow arthritis, ++ URIAH, 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 Rodriguez 04/15/24 Discussed the possibility of adding DMARDs such as Benlysta. Patient is not interested. Adjust hydroxychloroquine dose to 400 mg daily x5 days a week and 200 mg daily x2 days a week Labs before next visit in 6 -followed by [facility] Dr. Ashley Chanel note from 04/20/24 reviewed -seen by Dr. Negin Hewitt MD 04/24/25, note revived. No changes. 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 Rodriguez 04/15/24 Discussed the [...] Encounters Date Type Department Care Team Description 05/06/2025 Refill [facility] [address] [place] [phone] Jacey Metcalf ANP Squamous cell carcinoma lung, left (CMS/HCC) (HCC) 04/27/2025 11:45 AM EST Telemedicine [address] [address] Marjan Sams MD Retinal artery occlusion (Primary Dx); Squamous cell carcinoma lung, left (CMS/HCC) ([facility]) 04/27/2025 Telephone [facility] [address] [place] [address] Viridiana Hernández RN 04/27/[address] [address] Marjan Sams MD 04/27/2025 Travel 04/23/2025 Patient Outreach [address] [address] Marjan Sams MD Transition Of Care (Tcm) (HDF unscheduled unable to LVM ) 04/21/[address] [address] Marjan Sams MD chart prep 04/21/2025 Telephone [facility] [address] [place] [phone] Marjan Sams MD 04/20/2025 Orders Only GENERIC EXTERNAL DATA DEPARTMENT Provider, Generic External Data Retinal artery occlusion (Primary Dx) 04/19/2025 Refill [facility] [address] [place] [phone] Marjan Sams MD Arthritis of both knees 04/17/2025 Patient Outreach [facility] [address] [place] [phone] Marjan Sams MD Care Coordination (CH[facility] outreach for SDOH PT-1 and food needs-referral completed /) 04/17/2025 Telephone [facility] [address] [place] [phone] Marjan Sams MD PT1 04/10/2025 Refill [facility] [address] [place] [address] Marjan Sams MD Squamous cell carcinoma lung, left ([facility]) (HCC) 04/06/[address] [address] Marjan Sams MD 04/03/[address] [address] Marjan Sams MD chartprep 04/01/2025 Orders Only GENERIC EXTERNAL DATA DEPARTMENT Provider, Generic External Data Squamous cell carcinoma lung, left ([facility]) ([facility]) (Primary Dx) 03/30/[address] [address] Marjan Sams MD Nurse Triage 03/26/[address] [address] Marjan Sams MD Call Back Request 03/20/[address] [address] Marjan Sams MD Mild asthma with acute exacerbation, unspecified whether persistent 03/17/2025 Patient Outreach [address] [address] Marjan Sams MD Care Coordination ([facility] outreach for SDOH PT-1 and food needs-referral completed /) 03/17/[address] [address] Marjan Sams MD pt1 03/17/2025 Refill [facility] [address] [place], [place] [phone] Marjan Sams MD Arthritis of both knees 03/16/2025 Telephone [facility] [address] [place] [address] Marjan Sams MD Call Back Request 03/13/2025 9:45 AM EDT Telemedicine [address] [address] Marjan Sams MD Squamous cell carcinoma lung, left (CMS/HCC) (HCC) (Primary Dx) 03/13/2025 Telephone [facility] [address] [place] [address] Marjan Sams MD 03/12/[address] [phone] Marjan Sams MD chart prep 03/12/2025 Orders Only [facility] [address] [place] [address] Marjan Sams MD Squamous cell carcinoma lung, left (CMS/HCC) (HCC) (Primary Dx) 03/06/2025 Orders Only [facility] External Provider, [facility] Squamous cell carcinoma lung, left (CMS/HCC) (HCC) (Primary Dx) 03/05/2025 Orders Only [facility] External Provider, [facility] 03/05/2025 Telephone [facility] [address] [place] [address] Viridiana Hernández RN 02/25/2025 Orders Only [facility] [address] [place] [phone] Yoseph Altamirano MD 02/23/[address] [address] Marjan Sams MD 02/20/2025 9:30 AM EDT Clinical Support [address] [address] Viridiana Hernández, RN Chronically on opiate therapy (Primary Dx) 02/20/2025 Refill [facility] [address] [place] [address] Viridiana Hernández, RN Arthritis of both knees 02/20/2025 Travel 02/17/2025 Orders Only GENERIC EXTERNAL DATA DEPARTMENT Provider, Generic External Data 02/10/2025 Patient Outreach [facility] [address] [place] [address] Marjan Sams MD Care Coordination (CH[facility] outreach for SDOH PT-1 and food needs-referral completed /) 02/10/2025 Telephone [facility] [address] [place] [address] Marjan Sams MD Pt1 02/10/2025 Refill [facility] [address] [place] [address] Marjan Sams MD Tobacco dependence syndrome from Last 3 Months Immunizations Immunization Administration [...] Info) Description 05/27/2025 4:00 PM EST Telemedicine [facility] [address] [place], [place] [phone] Marjan Sams MD [address] [place], [place] [phone] Health Maintenance Due Date Last Done Comments CT Colonography 1966 FIT DNA/Cologuard 1966 FIT 1966 FOBT 1966 Sigmoidoscopy 1966 RSV Patients and Patients Aged 60 years or older (1 - Risk 50-74 years 1-dose series) 2016 Mammogram 09/23/2024 03/25/2024, 03/05, 02/11/2024, Additional history exists COVID-19 Vaccine ( season) 2025 02/13/2024, 06/25/2023, 07/31/2022, Additional history exists SDOH Screening 09/23/2025 09/23/2024 Alcohol/Substance Use Screening 10/01/2025 10/01/2024 Depression Screening 03/13/2026 03/13/2025, 03/13/20 25 Disability Screening 03/13/2026 03/13/2025 Tobacco Screening 04/27/2026 04/27/2025 Colonoscopy 03/30/2027 03/30/2017 Colorectal Cancer Screening 03/30/2027 [...] Priority Date/Time Associated Diagnosis Comments MR BRAIN WO CONTRAST Routine 04/21/2025 10:07 AM EST CTA HEAD NECK W AND WO CONTRAST Routine 04/20/2025 9:20 PM EST SED RATE BY MODIFIED WESTERGREN Routine 04/20/2025 8:05 PM EST APTT Routine 04/20/2025 8:05 PM EST PROTHROMBIN TIME-INR Routine 04/20/2025 8:05 PM EST COMPREHENSIVE METABOLIC PANEL Routine 04/20/2025 4:22 PM EST CBC WITH AUTO DIFFERENTIAL Routine 04/20/2025 4:22 PM EST IR CVC INSERT TUNNEL W PRT/VP CLINICAL Routine 04/01/2025 12:59 PM EDT PROTHROMBIN TIME-INR Routine 04/01/2025 12:30 PM EDT MR BRAIN W AND WO CONTRAST Routine [...] AUTO DIFFERENTIAL Routine 02/17/2025 9:50 AM EDT BI MAMMOGRAM DIAGNOSTIC TOMOSYNTHESIS BILATERAL Routine [...] Relevant to Health Maintenance Results * MR Brain w/o Contrast (04/21/2025 10:07 AM EST) Anatomical Region Laterality Modality Brain Magnetic Resonan ce 04/21/2025 10:0 7 AM EST Narrative 04/21/2025 11:03 AM EST [place] [address] Magnetic Resonance Report Signed with Addenda Patient: Tammy Moeller MR#: [id number] : 1965 Acct:[id number] Age/Sex: 60 / F ADM Date: 04/20/25 Loc: [facility] 446-[address]: Ben NIELSEN Ordering Physician: Brittaney Lofton PA-C Date of Service: 04/21/25 Procedure(s): MR head/brain wo con Accession Number(s): [id number] cc: Marjan Sams MD; Brittaney Lofton PA-C Reason for Exam: VARGAS ADDENDUM ADDENDUM #1 The retinal artery cannot be assessed properly on this examination. The CT angiogram brain [place] dated April 20, 2025 demonstrates normal patency of the ophthalmic arteries without vascular abnormality is at the origin. Electronically signed by: Ari Cavanaugh MD 04/22/2025 08:32 AM EST RP Addendum Dictated By: Ari Okeefe MD Addendum Signed By: <Electronically signed by Ari Okeefe MD in OV> 04/22/25 0832 Addendum Cosigned By: DD/ TD/TT: 04/21/25 EXAMINATION: MR BRAIN WITHOUT CONTRAST CLINICAL INFORMATION: VARGAS COMPARISON: March 06, 2025 TECHNIQUE: MRI of the brain was obtained using routine sequences without contrast. FINDINGS: No restricted diffusion. No acute intracranial hemorrhage, mass effect, midline shift, hydrocephalus or herniation. Old lacunar infarcts, basal ganglia/left thalamus. Mild prominent cistern, interpositum cistern Gutiérrez-white matter differentiation is normal. Posterior cranial fossa contents demonstrated no signal abnormality or mass effect. Normal position of the cerebellar tonsils. Sellar/suprasellar region is normal. Flow-void signal within the main cerebral vessels is normal. MR/MR head/brain wo con IMPRESSION: No acute brain abnormality. Old lacunar infarcts suggesting small vessel occlusive disease. Electronically signed by: Ari Cavanaugh MD 04/21/2025 11:00 AM EST RP Dictated By: Ari Jerez MD Signed By: <Electronically signed by Ari Okeefe MD in OV> 04/21/25 1100 DD/ 06 TD/TT: 04/21/251041 Service Crew Supervisor: Procedure Note Donotuseinterpreter, Image - 04/22/[address] [address] Magnetic Resonance Report Signed with Addenda Patient: Tammy Moeller#: [id number] : 1965Acct:[id number] Age/Sex: 60 / FADM Date: 04/20/25 Loc: [facility] 446-[address]: Ben NIELSEN Ordering Physician: Brittaney Lofton PA-C Date of Service: 04/21/25 Procedure(s): MR head/brain wo con Accession Number(s): [id number] cc: Marjan Sams MD; Brittaney Lofton PA-C Reason for Exam: VARGAS ADDENDUM ADDENDUM #1 The retinal artery cannot be assessed properly on this examination. The CT angiogram brain [place] dated April 20, 2025 demonstrates normal patency of the ophthalmic arteries without vascular abnormality is at the origin. Electronically signed by: Ari Cavanaugh MD 04/22/2025 08:32 AM EST RP Addendum Dictated By: Ari Okeefe MD Addendum Signed By: <Electronically signed by Carol Okeefe MD in OV> 04/22/25 0832 Addendum Cosigned By: DD/ TD/TT: 04/21/25 EXAMINATION: MR BRAIN WITHOUT CONTRAST CLINICAL INFORMATION: VARGAS COMPARISON: March 06, 2025 TECHNIQUE: MRI of the brain was obtained using routine sequences without contrast. FINDINGS: No restricted diffusion. No acute intracranial hemorrhage, mass effect, midline shift, hydrocephalus or herniation. Old lacunar infarcts, basal ganglia/left thalamus. Mild prominent cistern, interpositum cistern Gutiérrez-white matter differentiation is normal. Posterior cranial fossa contents demonstrated no signal abnormality or mass effect. Normal position of the cerebellar tonsils. Sellar/suprasellar region is normal. Flow-void signal within the main cerebral vessels is normal. MR/MR head/brain wo con IMPRESSION: No acute brain abnormality. Old lacunar infarcts suggesting small vessel occlusive disease. Electronically signed by: Ari Cavanaugh MD 04/21/2025 11:00 AM EST RP Dictated By: Ari Jerez MD Signed By: <Electronically signed by Ari Okeefe MDin OV> 04/21/25 1100 DD/ 1007 TD/TT: 04/21/25 1042 Service Crew Supervisor: [facility] External Provider IMG MRI PROCEDURES Edited Result - Final * CTA Head Neck w/ and w/o Contrast (04/20/2025 9:20 PM EST) Anatomical Region Laterality Modality Head, Neck Computed Tomogra phy 04/20/2025 9:20 PM EST Narrative 04/20/2025 9:22 PM EST [address] [address] [address] Scan Report Signed Patient: Tammy Moeller MR#: [id number] : 1965 Acct:[id number] Age/Sex: 60 / F ADM Date: 04/20/25 Loc: .ED Attending Dr: Ordering Physician: Gorge Bhat Date of Service: 04/20/25 Procedure(s): CT angio head neck Accession Number(s): [id number] cc: Marjan Sams MD; Gorge Bhat Report Number: [id number]: Total DLP = 0.00 mGy-cm Reason for Exam: right inferior nasal quadrantanopsia CLINICAL HISTORY: right inferior nasal quadrantanopsia CT head without contrast Comparison: None provided Findings: No acute intracranial fluid collection or hematoma. No acute process in sinuses or mastoids. No acute bony abnormality. Impression: No acute intracranial process CT angiogram head/[place] with contrast, Multiplanar reconstructions and 3D postprocessing Comparison: None provided Findings: Normal configuration of the [place] vessels. No acute filling defect or vessel truncation. Dural venous sinuses patent. No aneurysm or central vascular abnormality. No peripheral vascular malformations. Impression: No acute vascular abnormalities CT angiogram of the neck/carotid arteries with contrast, Multiplanar reconstructions and MIPS Comparison: Chest CT 03/05/2025 Findings: Occluded proximal left subclavian artery. Brachiocephalic and left common carotid origins patent. Bilateral vertebral artery origins patent. No evidence for vertebral dissection. Left vertebral dominant. Common carotid arteries are unremarkable. No bilateral internal carotid artery stenosis. No soft tissue abnormality. No acute bony abnormalities. Homogeneous thyromegaly. Dense left upper lobe atelectasis. Right central line partially visualized. Impression: No significant vascular abnormalities This document has been electronically signed by: Paco Rivera MD on 04/20/2025 21:20:15 Dictated By: Paco Rivera MD Signed By: <Electronically signed by Paco Rivera MD in OV> 04/20/252120 DD/ 19 TD/TT: 04/20/252119 Service Crew Supervisor: Procedure Note Donotuseinterpreter, Image - 04/20/[address] [place] [address] [address] Scan Report Signed Patient: Tammy Moeller#: [id number] : 1965Acct:[id number] Age/Sex: 60 / FADM Date: 04/20/25 Loc: .ED Attending Dr: Ordering Physician: Gorge Bhat Date of Service: 04/20/25 Procedure(s): CT angio head neck Accession Number(s): [id number] cc: Marjan Sams MD; Gorge Bhat Report Number: [id number]: Total DLP = 0.00 mGy-cm Reason for Exam: right inferior nasal quadrantanopsia CLINICAL HISTORY: right inferior nasal quadrantanopsia CT head without contrast Comparison: None provided Findings: No acute intracranial fluid collection or hematoma. No acute process in sinuses or mastoids. No acute bony abnormality. Impression: No acute intracranial process CT angiogram head/[place] with contrast, Multiplanar reconstructions and 3D postprocessing Comparison: None provided Findings: Normal configuration of the [place] vessels. No acute filling defect or vessel truncation. Dural venous sinuses patent. No aneurysm or central vascular abnormality. No peripheral vascular malformations. Impression: No acute vascular abnormalities CT angiogram of the neck/carotid arteries with contrast, Multiplanar reconstructions and MIPS Comparison: Chest CT 03/05/2025 Findings: Occluded proximal left subclavian artery. Brachiocephalic and left common carotid origins patent. Bilateral vertebral artery origins patent. No evidence for vertebral dissection. Left vertebral dominant. Common carotid arteries are unremarkable. No bilateral internal carotid artery stenosis. No soft tissue abnormality. No acute bony abnormalities. Homogeneous thyromegaly. Dense left upper lobe atelectasis. Right central line partially visualized. Impression: No significant vascular abnormalities This document has been electronically signed by: Paco Rivera MD on 04/20/2025 21:20:15 Dictated By: Paco Rivera MD Signed By: <Electronically signed by Paco Rivera MD in OV> 04/20/252120 DD/ 19 TD/TT: 04/20/252119 Service Crew Supervisor: [facility] External Provider IMG CT PROCEDURES Final Result * Partial Thromboplastin Time, Activated (APTT) (04/20/2025 8:05 PM EST) Pathologist [facility] Partial Thromboplastin Time 29.2 26.7 - 34.1 SEC [facility] 04/20/2025 8:05 PM EST 04/20/2025 8:09 PM EST Narrative [facility] - 04/20/2025 8:21 PM EST hard stick Generic External Data Provider LAB BLOOD ORDERAB LES Final Result [facility] [address] [place] [phone] * (ABNORMAL) Sed Rate by Modified Marilynren (04/20/2025 8:05 PM EST) Pathologist [facility] Erythrocyte Sedimentation Rate 86(H) 0 - 20 MM/HR [facility] Comment:Patients with polycy themia and many hemoglobin abnormalitiesmay have depressed sed rates whereas patients with anemiamay have elevated sed rates. 04/20/2025 8:05 PM EST 04/20/2025 8:09 PM EST Generic External Data Provider LAB BLOOD ORDERAB LES Final Result Performing Organization Address [facility] Co de Phone Number [facility] [address] [place] [phone] * Prothrombin Time-INR (04/20/2025 8:05 PM EST) Only the most recent of3 resultswithin the time period is included. Prothrombin Time 13.1 11.2 - 13.5 SEC [facility] INTERNATIONAL NORM RATIO 1.1 0.9 - 1.1 [facility] Comment:INTERNATIONAL NORMAL IZED RATIO (INR) REFERENCE RANGES Reference RangeFor patients not on anticoagulant therapy: 0.9 - 1.1INR ranges for oral anticoagulanttherapy:For prevention and treatment of venous thrombosis and pulmonary embolism: 2.0 - 3.0For acute myocardial infarction with aspirin therapy: 2.0 - 3.0For acute myocardial infarction without aspirin therapy: 3.0 - 4.0For patients with mechanical prosthetic heart valves: 2.5 - 3.5 04/20/2025 8:05 PM EST 04/20/2025 8:09 PM EST Narrative [facility] - 04/20/2025 8:21 PM EST hard stick Generic External Data Provider LAB BLOOD ORDERAB LES Final Result Performing Organization Address [facility] Co de Phone Number [facility] [address] [place] [phone] * (ABNORMAL) CBC auto differential (04/20/2025 4:22 PM EST) Only the most recent of2 resultswithin the time period is included. White Blood Count 7.6 4.8 - 10.8 X10*3/uL [facility] Red Blood Count 4.89 4.20 - 5.50 X10*6/uL [facility] Hemoglobin 13.3 12.0 - 16.0 g/dl [facility] Hematocrit 43.7 37.0 - 47.0 % [facility] Mean Corpuscular Volume 89.4 80.0 - 98.0 fL [facility] Mean Corpuscular Hemoglobin 27.2 27.0 - 33.0 pg [facility] Mean Corpuscular HGB Conc 30.4(L) 31.0 - 35.0 g/dl [facility] Red Cell Distribution Width 17.8(H) 11.0 - 16.0 % [facility] Platelet Count 253 160 - 400 X10*3/uL [facility] Mean Platelet Volume 9.8 9.4 - 12.3 fL [facility] Neutrophils Percent Auto 74.8(H) 45 - 73 % [facility] Imm Gran Pct Auto 0.4 0.0 - 0.4 % [facility] Lymphocytes Percent Auto 23.4 20 - 40 % [facility] Monocytes Percent Auto 1.2(L) 2 - 11 % [facility] Eosinophils Percent Auto 0.1 0 - 4 % [facility] Basophils Percent Auto 0.1 0 - 2 % [facility] NRBC Pct Auto 0.0 0.0 - 0.2 /100WBC [facility] Neutrophils Absolute Auto 5.7 2.0 - 8.3 x10*3/uL [facility] Imm Gran Abs Auto 0.03 0.00 - 0.03 X10*3/uL [facility] Lymphocytes Absolute Auto 1.8 1.2 - 4.9 X10*3/uL [facility] Monocytes Absolute Auto 0.1 0.1 - 1.2 X10*3/uL [facility] Eosinophils Absolute Auto 0.0 0.0 - 0.4 X10*3/uL [facility] Basophils Absolute Auto 0.0 0.0 - 0.2 X10*3/uL [facility] NRBC Abs Auto 0.000 0.0 - 0.012 X10*3/uL [facility] 04/20/2025 4:22 PM EST 04/20/2025 4:25 PM EST us Generic External Data Provider LAB BLOOD ORDERAB LES Final Result [facility] [address] [place] [phone] * (ABNORMAL) Comprehensive Metabolic Panel (04/20/2025 4:22 PM EST) Sodium 135 135 - 145 mmol/L [facility] Potassium 4.0 3.3 - 5.1 mmol/L [facility] Chloride 107 96 - 108 mmol/L [facility] Carbon Dioxide 18(L) 22 - 29 mmol/L [facility] Anion Gap 14 12 - 20 [facility] Urea Nitrogen (BUN) 19(H) 9 - 16 mg/dL [facility] Creatinine, Serum 0.79 0.5 - 1.4 mg/dL [facility] Creatinine Clr Calc Pharmacy 60.6 [facility] Comment:Provided height and weight: 157.48 cm,58.967 kg.eGFR (calculated from the MDRD study equation) and eCrCl(calculated from the Cockcroft-Gault equation) are based ondifferent parameters and may not yield comparable results.If eCrCl result is absurd, please check patient'sheight/weight. Estimated Glomerular Filt Rate >60 [facility] Comment:Chronic Kidney Disea se: Estimated GFR < 60 mL/min/1.22z4Duqhsh Kidney Disease: Estimated GFR < 15 mL/min/1.73m2 Glucose 66 60 - 115 mg/dL [facility] Calcium 9.6 8.4 - 10.2 mg/dL [facility] Bilirubin, Total 0.7 0.0 - 1.0 mg/dL [facility] Aspartate Amino Transferase 27 5 - 31 U/L [facility] Alanine Aminotransferase 11 0 - 31 U/L [facility] Total Protein 9.1(H) 6.5 - 8.0 g/dL [facility] Albumin Level 3.7 3.5 - 5.0 g/dL [facility] Alkaline Phosphatase 89 39 - 117 U/L [facility] 04/20/2025 4:22 PM EST 04/20/2025 4:25 PM EST us Generic External Data Provider LAB BLOOD ORDERAB LES Final Result Performing Organization Address City/State/[facility] Co de Phone Number [facility] [address] [place] [phone] * IR cvc insert tunnel w prt/e commerce strategist (04/01/2025 12:59 PM EDT) Anatomical Region Laterality Modality X-Ray Angiograph y 04/01/2025 12:5 9 PM EDT Narrative 04/08/2025 7:37 AM EST [place] [address] Interventional Radiology Rpt Signed Patient: Tammy Moeller MR#: [id number] : 1965 Acct:[id number] Age/Sex: 59 / F ADM Date: 04/01/25 Loc: [facility] Attending Dr: Sonja Patel MD Ordering Physician: Sonja Patel MD Date of Service: 04/01/25 Procedure(s): IR cvc insert tunnel w prt/e commerce strategist Accession Number(s): [id number] cc: Marjan Sams MD; Sonja Patel MD Reason for Exam: For chemotherapy CLINICAL HISTORY: Lung cancer . The patient presents to interventional radiology for placement of a port for chemotherapy. PROCEDURES: 1. Real-time ultrasound-guided access into the right internal jugular vein after documentation of selected vessel patency, and permanent image storing in the patient records. 2. Placement of a 6.6 [place] single-lumen port. CLINICIAN: Johan Weiss NP MEDICATIONS: - Versed , Fentanyl , Lidocaine 1% SQ -Antibiotics: Ancef 2g -For additional details, please see nursing flowsheet. Complications: None. Estimated blood loss: <5 ml Specimens: None. Contrast: None. Fluoroscopy time: 1.0 min MODERATE SEDATION TIME: 31 min PROCEDURE NOTE: The procedure, risks, benefits, and alternatives were carefully explained to the patient and written informed consent was obtained. The patient was placed supine on the fluoroscopy table. A timeout was performed. The right neck and chest was prepped and draped in usual sterile fashion. Maximum barrier technique was utilized. Local anesthesia was administered to the access site with 1% lidocaine. Under ultrasound guidance, the right internal jugular vein was accessed with a 5 fr micropuncture set. A 0.035 in wire was advanced into the IVC. A peel-away sheath was advanced over the wire and into the SVC, and the wire was removed. Next, subcutaneous lidocaine was administered to the chest. The port pocket was created after the skin incision, utilizing blunt dissection. Using blunt dissection, a subcutaneous tunnel was created that connects from the port pocket to the venotomy site. Through the peel-away sheath, the 6.6 [place] port catheter was placed. The catheter position was verified with fluoroscopy to be at the superior vena cava/right atrial junction. The port was connected to the catheter and was placed in the pocket. The port incision site was closed with interrupted 3-0 Vicryl subcutaneous sutures and surgical glue. Prior to closing the skin, 1 g of Ancef solution was placed in the pocket. The port was tested, flushed, and packed with heparin per routine protocol. The patient tolerated the procedure well. The patient was stable after the procedure and was transferred to the PACU. The procedure was performed under moderate sedation and with a dedicated nurse with continuous monitoring of vital signs. A permanent image of the ultrasound the neck and fluoroscopic image of the chest was saved and sent to PACS. FINDINGS: 1. Patent right internal jugular vein 2. Placement of a 6.6 [place] single lumen port. 3. Port flushes and aspirates very well with a 10 mL syringe. No pneumothorax. IR/IR cvc insert tunnel w prt/e commerce strategist IMPRESSION: Placement of a 6.6 [place] single-lumen port. PLAN: - The patient will be discharged home when stable by sedation protocol. - Port may be used immediately. This procedure was performed by Johan Weiss NP and directly supervised by Juan Antonio Blevins MD. Electronically signed by: Juan Antonio Blevins MD 04/08/2025 07:34 AM EST Workstation: [id number] Dictated By: Johan Weiss NP Signed By: <Electronically signed by Johan Weiss in OV> 04/08/25 0734 <Electronically signed by Juan Antonio Blevins MD in OV> 04/08/25 0736 DD/ 1259 TD/TT: 04/01/25 6605 Service Crew Supervisor: Procedure Note Donotuseinterpreter, Image - 04/08/2025 [place] [address] Interventional Radiology Rpt Signed Patient: Tammy Moeller#: [id number] : 1965Acct:[id number] Age/Sex: 59 / FADM Date: 04/01/25 Loc: .[facility] Attending Dr: Sonja Patel MD Ordering Physician: Sonja Patel MD Date of Service: 04/01/25 Procedure(s): IR cvc insert tunnel w prt/e commerce strategist Accession Number(s): [id number] cc: Marjan Sams MD; Sonja Patel MD Reason for Exam: For chemotherapy CLINICAL HISTORY: Lung cancer . The patient presents to interventional radiology for placement of a port for chemotherapy. PROCEDURES: 1. Real-time ultrasound-guided access into the right internal jugular vein after documentation of selected vessel patency, and permanent image storing in the patient records. 2. Placement of a 6.6 [place] single-lumen port. CLINICIAN: Johan Weiss NP MEDICATIONS: - Versed , Fentanyl , Lidocaine 1% SQ -Antibiotics: Ancef 2g -For additional details, please see nursing flowsheet. Complications: None. Estimated blood loss: <5 ml Specimens: None. Contrast: None. Fluoroscopy time: 1.0 min MODERATE SEDATION TIME: 31 min PROCEDURE NOTE: The procedure, risks, benefits, and alternatives were carefully explained to the patient and written informed consent was obtained. The patient was placed supine on the fluoroscopy table. A timeout was performed. The right neck and chest was prepped and draped in usual sterile fashion. Maximum barrier technique was utilized. Local anesthesia was administered to the access site with 1% lidocaine. Under ultrasound guidance, the right internal jugular vein was accessed with a 5 fr micropuncture set. A 0.035 in wire was advanced into the IVC. A peel-away sheath was advanced over the wire and into the SVC, and the wire was removed. Next, subcutaneous lidocaine was administered to the chest. The port pocket was created after the skin incision, utilizing blunt dissection. Using blunt dissection, a subcutaneous tunnel was created that connects from the port pocket to the venotomy site. Through the peel-away sheath, the 6.6 [place] port catheter was placed. The catheter position was verified with fluoroscopy to be at the superior vena cava/right atrial junction. The port was connected to the catheter and was placed in the pocket. The port incision site was closed with interrupted 3-0 Vicryl subcutaneous sutures and surgical glue. Prior to closing the skin, 1 g of Ancef solution was placed in the pocket. The port was tested, flushed, and packed with heparin per routine protocol. The patient tolerated the procedure well. The patient was stable after the procedure and was transferred to the PACU. The procedure was performed under moderate sedation and with a dedicated nurse with continuous monitoring of vital signs. A permanent image of the ultrasound the neck and fluoroscopic image of the chest was saved and sent to PACS. FINDINGS: 1. Patent right internal jugular vein 2. Placement of a 6.6 [place] single lumen port. 3. Port flushes and aspirates very well with a 10 mL syringe. No pneumothorax. IR/IR cvc insert tunnel w prt/e commerce strategist IMPRESSION: Placement of a 6.6 [place] single-lumen port. PLAN: - The patient will be discharged home when stable by sedation protocol. - Port may be used immediately. This procedure was performed by Johan Weiss NP and directly supervised by Juan Antonio Blevins MD. Electronically signed by: Juan Antonio Blevins MD 04/08/2025 07:34 AM EST Workstation: [id number] Dictated By: Johan Weiss NP Signed By: <Electronically signed by Johan Weiss in OV> 04/08/25 0734 <Electronically signed by Juan Antonio Blevins MD in OV> 04/08/25 0736 DD/ 1259 TD/TT: 04/01/25 5655 Service Crew Supervisor: [facility] External Provider IMG IR PROCEDURES Final Result * Mr Brain w/ and w/o Contrast (03/06/2025 3:16 PM EDT) Anatomical Region Laterality Modality Brain Magnetic Resonan ce 03/06/2025 3:16 PM EDT Narrative 03/06/2025 4:24 PM EDT [address] [address] Magnetic Resonance Report Signed Patient: Tammy Moeller MR#: [id number] : 1965 Acct:[id number] Age/Sex: 59 / F ADM Date: 03/06/25 Loc: HO.MRI Attending Dr: Sonja Patel MD Ordering Physician: Sonja Patel MD Date of Service: 03/06/25 Procedure(s): MR head/brain wo/w con Accession Number(s): [id number] cc: Marjan Sams MD; Sonja Patel MD [...] Amor Jimenez MD 03/06/2025 04:21 PM EDT Dictated By: Amor Jimenez MD Signed By: <Electronically signed by Amor Jimenez MD in OV> 03/06/25 1621 DD/ 1516 TD/TT: 03/06/25 1553 Service Crew Supervisor: Procedure Note Donotuseinterpreter, Image - 03/06/[address] [address] Magnetic Resonance Report Signed Patient: Tammy Moeller#: [id number] : 1965Acct:[id number] Age/Sex: 59 / FADM Date: 03/06/25 Loc: HO.MRI Attending Dr: Sonja Patel MD Ordering Physician: Sonja Patel MD Date of Service: 03/06/25 Procedure(s): MR head/brain wo/w con Accession Number(s): [id number] cc: Marjan Sams MD; Sonja Patel MD [...] Amor Jimenez MD 03/06/2025 04:21 PM EDT Dictated By: Amor Jimenez MD Signed By: <Electronically signed by Amor Jimenez MD in OV> 03/06/25 1621 DD/ 1516 TD/TT: 03/06/25 1553 Service Crew Supervisor: [facility] External Provider IMG MRI PROCEDURES Final Result * CTA Chest PE Protocal (03/05/2025 7:58 PM EDT) Anatomical Region Laterality Modality Body, Chest Computed Tomogra phy 03/05/2025 7:58 PM EDT Narrative 03/05/2025 8:00 PM EDT [address] [address] [address] Scan Report Signed with Addenda Patient: Tammy Moeller MR#: [id number] : 1965 Acct:[id number] Age/Sex: 59 / F ADM Date: 03/05/25 Loc: HO.ED Attending Dr: Ordering Physician: Yariel Cuenca MD Date of Service: 03/05/25 Procedure(s): CT angio chest PE protocol Accession Number(s): [id number] cc: Marjan Sams MD; Yariel Cuenca MD Report Number: [id number]: Total DLP = 0.00 mGy-cm Reason for [...] in OV> 03/05/251958 DD/ 57 TD/TT: 03/05/251957 Service Crew Supervisor: Procedure Note Donotuseinterpreter, Image - 03/05/[address] [place] [address] [address] Scan Report Signed with Addenda Patient: Tammy Moeller#: [id number] : 1965Acct:[id number] Age/Sex: 59 / FADM Date: 03/05/25 Loc: .ED Attending Dr: Ordering Physician: Yariel Cuenca MD Date of Service: 03/05/25 Procedure(s): CT angio chest PE protocol Accession Number(s): [id number] cc: Marjan Sams MD; Yariel Cuenca MD Report Number: [id number]: Total DLP = 0.00 mGy-cm Reason for [...] in OV> 03/05/251958 DD/ 57 TD/TT: 03/05/251957 Service Crew Supervisor: [facility] External Provider IMG CT PROCEDURES Edited Result - Final * XR Chest 2 Views (03/05/2025 4:50 PM EDT) Only the most recent of2 resultswithin the time period is included. Anatomical Region Laterality Modality Chest Radiographic Erendira ging 03/05/2025 4:50 PM EDT Narrative 03/05/2025 5:07 PM EDT [address] [address] XRay Report Signed Patient: Tammy Moeller MR#: [id number] : 1965 Acct:[id number] Age/Sex: 59 / F ADM Date: 03/05/25 Loc: HO.ED Attending Dr: Ordering Physician: Yariel Cuenca MD Date of Service: 03/05/25 Procedure(s): XR chest 2V Accession Number(s): [id number] cc: Marjan Sams MD; Yariel Cuenca MD [...] 03/05/25 1704 DD/ 1650 TD/TT: 03/05/25 1652 Service Crew Supervisor: Procedure Note Donotuseinterpreter, Image - 03/05/[address] [address] XRay Report Signed Patient: Tammy MoellerR#: [id number] : 1965Acct:[id number] Age/Sex: 59 / FADM Date: 03/05/25 Loc: HO.ED Attending Dr: Ordering Physician: Yariel Cuenca MD Date of Service: 03/05/25 Procedure(s): XR chest 2V Accession Number(s): [id number] cc: Marjan Sams MD; Yariel Cuenca MD [...] 03/05/25 1704 DD/ 1650 TD/TT: 03/05/25 1652 Service Crew Supervisor: [facility] External Provider IMG XR PROCEDURES Edited Result - Final * PET/CT Bone Skull Base to Mid Thigh (02/24/2025 11:00 AM EDT) Anatomical Region Laterality Modality Body Computed Tomogra phy Historical Provider IMG CT PROCEDURES Final R esult * (ABNORMAL) [...] / Unknown 02/20/2025 9:51 AM EDT Narrative Lee AnnangieViridiana, RN - 02/20/2025 9:51 AM EDT .UTOX cup Lot#[id number] Exp. 03/10/26 Internal Pass Control Marjan Sams MD POINT OF CARE TEST ENTER/E DIT ORDERABLES Final Result * Gross and Microscopic Level 4 (02/17/2025 11:02 AM EDT) 02/17/2025 11:0 2 AM EDT 02/17/2025 2:34 PM EDT Narrative [facility] - 03/04/2025 11:50 AM EDT ----- ------- Name: Tammy Moeller Age/Sex: 59/F : 1965 Unit#: [id number] Attend Dr: Yann Fu MD Re02/17/25 Status: [facility] [facility] Location: [facility] Disch: ----- ------- SPEC : [id number] RECD: 02/17/25-1434 STATUS: GLEN CAMERON NUM: [id number] NICOLETTE: 02/17/25-[address]: Pranay Arndt MD ENTERED: 02/17/259333 SP TYPE: Surgical OTHR DR: Marjan Sams MD,Yann ESPINOZA ORDERED: Gross Micro L4, IHC, Add. immunos, p40, p63, NSCLC Lung bx COMMENTS: Block A sent to [facility] for xT xR Solid Tumor/PD-L1 on 02/20/25. Addendum Addendum 2 Entered: 03/04/25-1149 Tempus testing: PD-L1 expression 22C3: Positive Tumor proportion score (TPS): 2% Combined positive score (CPS): 5 Genomic variants: Biologically Relevant: RB1: p.K447* Stop gain - LOF 21.2% TP53: p.Q167* Stop gain - LOF 18.9% FUBP1: p.R37* Stop gain - LOF 17.4% KMT2D: p.E0070bu Frameshift - LOF 17.4% B2M: p.P25fs Frameshift [...] Tammy Moeller Age/Sex: 59/F : 1965 Unit#: [id number] Attend Dr: Yann Fu MD Re02/17/25 Status: [facility] Location: [facility] Disch: ----- ------- SPEC : [id number] RECD: 02/17/25 STATUS: GLEN CAMERON NUM: [id number] NICOLETTE: 02/17/25-[address] [facility] [address]: Pranay Arndt MD ENTERED: 02/17/25 SP TYPE: Surgical OTHR DR: Marjan Sams MD, Andrey MD ORDERED: Gross Micro L4, IHC, Add. immunos, p40, p63, NSCLC Lung bx COMMENTS: Block A sent to [facility] for xT xR Solid Tumor/PD-L1 on 02/20/25. Addendum (Continued) Addendum 1 Entered: 02/19/25 Immunostains show the tumor is positive for p40 and p63, confirming squamous differentiation. Controls stain appropriately. Additional studies pending; report to follow. Addendum Signed (signature on file) Marychuy Moreau 02/19/2515 ----- ------- Diagnosis Lung, left upper lobe [...] and thin and delicate cylindrical threads of gutiérrez-duval tissue with scant red-maroon blood, submitted in toto in a cassette labeled A. CONTINUED ON NEXT PAGE ----- ------- Name: Tammy Moeller Age/Sex: 59/F : 1965 Unit#: [id number] Attend Dr: Yann Fu MD Re02/17/25 Status: [facility] Location: [facility] Disch: ----- ------- SPEC : [id number] RECD: 02/17/25-6356 STATUS: GLEN CAMERON NUM: [id number] NICOLETTE: 02/17/25-[address]: Pranay Arndt MD ENTERED: 02/17/25-0104 SP TYPE: Surgical OTHR DR: Marjan Sams MD, Andrey MD ORDERED: Gross Micro L4, IHC, Add. immunos, p40, p63, NSCLC Lung bx COMMENTS: Block A sent to [facility] for xT xR Solid Tumor/PD-L1 on 02/20/25. [...] developed and their performance characteristics determined by [facility]. They have not been cleared or approved by the U.S. Food and Drug Administration (FDA). However, the FDA has determined that such clearance or approval is not necessary. This laboratory is certified under the Clinical Laboratory Improvement Amendments of 1988 (CLIA) as qualified to perform high complexity clinical laboratory testing. Copies To: Marjan Sams MD [address] [id number] Pranay Arndt MD [address] [place] [id number] Yann Fu MD [facility] Pulmonology Services [address] [place] [address] ----- ------- Signed (signature on file) Marychuy Moreau 02/18/25 1615 ----- ------- END OF REPORT us Generic External Data Provider LAB CYTOLOGY ORDSee GOYAL Final Result [facility] [address] [place] [phone] * CT Biopsy Lung Left (02/17/2025 10:35 AM EDT) Anatomical Region Laterality Modality Computed Tomogra phy 02/17/2025 10:3 5 AM EDT Narrative 02/17/2025 2:46 PM EDT [address] [address] [address] Scan Report Signed Patient: Tammy Moeller MR#: [id number] : 1965 Acct:[id number] Age/Sex: 59 / F ADM Date: 02/17/25 Loc: [facility] Attending Dr: Yann Fu MD Ordering Physician: Yann Fu MD Date of Service: 02/17/25 Procedure(s): CT biopsy lung LT Accession Number(s): [id number] cc: Marjan Sams MD; Yann Fu MD Report Number: [id number]: Total DLP = 208.00 mGy-cm Reason for [...] 02/17/25 1442 DD/ 1035 TD/TT: 02/17/25 1119 Service Crew Supervisor: JASON Procedure Note Donotuseinterpreter, Image - 02/17/[address] [address] [address] Scan Report Signed Patient: Tammy Moeller#: [id number] : 1965Acct:[id number] Age/Sex: 59 / FADM Date: 02/17/25 Loc: [facility] Attending Dr: Yann Fu MD Ordering Physician: Yann Fu MD Date of Service: 02/17/25 Procedure(s): CT biopsy lung LT Accession Number(s): [id number] cc: Marjan Sams MD; Yann Fu MD Report Number: [id number]: Total DLP = 208.00 mGy-cm Reason for [...] 02/17/25 1442 DD/ 1035 TD/TT: 02/17/25 1119 Service Crew Supervisor: JASON [facility] External Provider IMG CT PROCEDURES Edited Result - Final * (ABNORMAL) Basic Metabolic Panel (02/17/2025 9:50 AM EDT) Sodium 142 135 - 145 mmol/L [facility] Potassium 3.8 3.3 - 5.1 mmol/L [facility] Chloride 114(H) 96 - 108 mmol/L [facility] Carbon Dioxide 22 22 - 29 mmol/L [facility] Anion Gap 10(L) 12 - 20 [facility] Urea Nitrogen (BUN) 6(L) 9 - 16 mg/dL [facility] Creatinine, Serum 0.71 0.5 - 1.4 mg/dL [facility] Creatinine Clr Calc Pharmacy 77.6 [facility] Comment:Provided height and weight: 157.48 cm,67.2 kg.eGFR (calculated from the MDRD study equation) and eCrCl(calculated from the Cockcroft-Gault equation) are based ondifferent parameters and may not yield comparable results.If eCrCl result is absurd, please check patient'sheight/weight. Estimated Glomerular Filt Rate >60 [facility] Comment:Chronic Kidney Disea se: Estimated GFR < 60 mL/min/1.70i9Xrfqig Kidney Disease: Estimated GFR < 15 mL/min/1.73m2 Glucose 73 60 - 115 mg/dL [facility] Calcium 8.7 8.4 - 10.2 mg/dL [facility] 02/17/2025 9:50 AM EDT 02/17/2025 9:52 AM EDT us Generic External Data Provider LAB BLOOD ORDERAB LES Final Result Performing Organization Address City/State/[facility] Co de Phone Number [facility] [address] [place] [address] [phone] * BI Mammogram Diagnostic Tomosynthesis Bilateral (03/25/2024 2:00 PM EDT) Anatomical Region Laterality Modality Breast Bilateral Mammography 03/25/2024 2:00 PM EDT Narrative 03/25/2024 2:50 PM EDT [facility] [address] [place] [address] Mammography Report Signed Patient: Tammy Moeller MR#: [id number] : 1965 Acct:[id number] Age/Sex: 58 / F ADM Date: 03/25/24 Loc: .MAMMO Attending Dr: Marjan Sams MD Ordering Physician: Marjan Sams MD Results: 2B enign Findings Date of Service: 03/25/24 Follow Up: 1 Year From [facility] Mammogram Procedure(s): MM tomosynthesis diagnostic BI Accession Number(s): [id number] cc: Marjan Sams MD EXAMINATION: MM DIAGNOSTIC [...] 03/25/24 1447 DD/ 1400 TD/TT: 03/25/24 1422 Service Crew Supervisor: Procedure Note Donotuseinterpreter, Image - 03/25/2024 [facility] [address] [place] [address] [place] [address] Mammography Report Signed Patient: Tammy Moeller#: [id number] : 1965Acct:[id number] Age/Sex: 58 / FADM Date: 03/25/24 Loc: [facility].MAMMO Attending Dr: Marjan Sams MD Ordering Physician: Marjan Sams MDResults: 2B enign Findings Date of Service: 03/25/24Follow Up: 1 Year From Orig ina Mammogram Procedure(s): MM tomosynthesis diagnostic BI Accession Number(s): [id number] cc: Marjan Sams MD EXAMINATION: MM DIAGNOSTIC [...] 03/25/24 1447 DD/ 1400 TD/TT: 03/25/24 1422 Service Crew Supervisor: Marjan Sams MD IMG BI PROCEDURES Final Re sult * HIV-1/2 Antigen and Antibodies, Fourth Generation, with Reflexes (02/13/2024 10:36 AM EDT) HIV AB/AG Nonreactive Nonreactive [facility] Comment:HIV-1 p24 Ag and/or HIV-1/HIV-2 Ab not detected.A test result that is nonreactive does not exclude thepossibility of exposure to or infection with HIV-1 and/orHIV-2. Nonreactive results in this assay for individualswith prior exposure to HIV-1 and/or HIV-2 may be due toantigen and antibody levels that are below the limit ofdetection of this assay.The [employer] HIV Ag/Ab Combo assay result andsupplemental assay results should be interpreted inconjunction with the patient's clinical presentation,history and other laboratory results. If the results areinconsistent with clinical evidence, additional testing issuggested to confirm the result. Blood Venous blood specimen / Unknown 02/13/2024 10:36 AM EDT 02/13/2024 11:19 AM EDT Marjan Sams MD LAB BLOOD ORDERABLES Final Result [facility] [address] [place] [phone] * (ABNORMAL) Lipid Panel, Standard (02/13/2024 10:36 AM EDT) Triglycerides 115 <150 mg/dL [facility] Comment:Desirable Triglyceri de: less than 150 mg/dLBorderline High Triglyceride 150-199 mg/dLHigh Triglyceride: 200-499 mg/dLVery High Triglyceride: greater than or equal to 5OO mg/dL Cholesterol 178 <200 mg/dL [facility] Comment:Desirable Cholestero l: less than 200 mg/dLBorderline High Cholesterol: 200-239 mg/dLHigh Cholesterol: greater than 239 mg/dL LDL Cholesterol Calculated 114(H) <100 mg/dL [facility] Comment:Desirable LDL: less than 100 mg/dLNear Optimal/Above Optimal LDL: 110- 129 mg/dLBorderline High LDL: 130-159 mg/dLHigh LDL: 160-189 mg/dLVery High LDL: greater than or equal to 190 mg/dL HDL Cholesterol 41 >40 mg/dL [facility] Comment:Desirable HDL: great er than 40 mg/dL Note: This HDL assay may give artificially low results in patients with liver disease. Blood Venous blood specimen / Unknown 02/13/2024 10:36 AM EDT 02/13/2024 11:19 AM EDT us Marjan Sams MD LAB BLOOD ORDERABLES Final Result [facility] [address] [place] [phone] * Thinprep PAP, HPV mRNA E6/E7 RFX HPV 16,18/45, Chlamydia/N. Gonorrhoeae (11/03/2022 12:00 AM EDT) Clinical Information: ROUTINE [employer] LMP: NONE GIVEN [employer] Prev. PAP: NONE GIVEN [employer] Prev. BX: NO [facility] [employer] [facility] SOURCE: None given [employer] Statement Of Adequacy: SATISFACTORY FOR EVALUATION [employer] Interpretation/Re sult: [employer] Comment: Negative for intraepithelial lesion or malignancy. Atrophic pattern; predominantly parabasal cells Route Delivery Service Driver: Farheen [employer] Comment: WXW, CT(ASCP) CT Screening Location: [address] [address] (Always Message) [facility] [employer] Comment: EXPLANATORY NOTE: The Pap is a [...] HPV nRNA E6/E7 Not Detected Not Detected [facility] Comment: Methodology: Fuel Verification Technician-Mediated Amplification This assay detects E6/E7 viral messenger RNA (mRNA) from 14 high-risk HPV types (16,18,31,33,35,39,45,51,52,56,58,59,66,68). Cervical sources are required for HPV testing. If a vaginal source from a patient who has had a total hysterectomy with removal of cervix was submitted, please contact the testing laboratory for alternative testing options. For additional information, please refer to http://[employer]..Vsnap/faq/KDK560c9 (This link if provided for information/ educational purposes only.) Chlamydia trachomatis RNA, TMA, Urogenital NOT DETECTED NOT DETECTED [facility] Neisseria gonorrhoeae RNA, TMA, Urogenital NOT DETECTED NOT DETECTED [facility] Comment [facility] Comment: The analytical performance characteristics of this assay, when used to test SurePath(TM) specimens have been determined by [facility]. The modifications have not been cleared or approved by the FDA. This assay has been validated pursuant to the CLIA regulations and is used for clinical purposes. For additional information, please refer to https://[employer]Vsnap/faq/HRY517 (This link is being provided for information/ educational purposes only.) 11/03/2022 11/06/2022 9:1 5 PM EDT Narrative [facility] - 11/09/2022 10:33 AM EDT FASTING: UNKNOWN us Marjan Sams MD LAB PATHOLOGY ORDERABLES F inal Result [address], [facility], [place] [address] [facility] [place] [address] [place] [address] * Hepatitis C Antibody with Reflex to HCV, RNA, Quantitative, Real-Time PCR (10/31/2022 8:11 AM EDT) Hepatitis C Antibody NON-REACT CHOCO NON-REACT CHOCO [facility] Index 0.43 <1.00 [facility] Comment: HCV antibody was non-reactive. There is no laboratory evidence of HCV infection. In most cases, no further action is required. However, if recent HCV exposure is suspected, a test for HCV RNA (test code 78338) is suggested. For additional information please refer to http://education.Vsnap/faq/MEY40v3 (This link is being provided for informational/ educational purposes only.) Blood Venous blood specimen / Unknown 10/31/2022 8:11 AM EDT 10/31/2022 8:11 AM EDT Narrative [facility] - 10/31/2022 9:53 PM EDT FASTING:YES FASTING: YES Marjan Sams MD LAB BLOOD ORDERABLES Final Result [employer] [address], [place] [address] [facility] [address] [place] [address] * Hm Colonoscopy (03/30/2017 12:40 PM EDT) Historical Provider HEALTH MAINTENANCE Final Result from Last 3 Months or Most Recently Relevant to Health Maintenance Insurance MEDICARE [facility] STANDARD Advance Directives Documents on File Type Date Recorded Patient Repairer Kiln Car Expl anation Advance Directives and Living Will 10/01/2024 12:27 PM HEALTH CARE PROXY Care Teams Organ Assembler Relationship Specialty Start Date End Date [place], MD Marjan [address] [place] [address] PCP - General Family Medicine 06/04/18 Esteban Nice MD [address] [place] [address] Rheumatology 05/21/24 Ashley Chanel OD 180 [place] [address] Optometry 05/21/24 Alban Koehler 175 [facility] 110 [place] [address] Podiatry 10/08/24 Sonja Patel MD [address] [place] [address] Hematology and Oncology 02/26/25 Jack Lyles [address] 110 Thoracic Surgery 02/26/25 Dea Hewitt MD Rheumatology 10/06/24
--- OUTSIDE RECORDS SUMMARY | 2025-05-09 12:57 | XMS_ITS | Encounter Summary ---
Author Organization [employer] Address 75 [facility] 7t [place] [address] Care Team Providers Care Golf Ball Winder Name Role Phone Marjan Sams MD Primary Care Provider [phone]- [phone] Esteban Nice MD Unavailable Ashley Chanel OD Unavailable [phone] Alban Koehler Unavailable Sonja Patel MD Unavailable [phone] Jack Lyles Unavailable Reason for Visit * Reason Onset Date Comments Med Refill 02/19/2023 Encounter Details Date Type Department Care Team (Late st Contact Info) Description 02/19/2023 Telephone [facility] MEDICINE [address] [place] [phone] Marjan Sams MD 230 [place], [place] [phone] Med Refill Social History Tobacco Use Types [...] Info) Description 05/27/2025 4:00 PM EST Telemedicine [facility] 230 [place] [address] Marjan Sams MD 230 [place], [place] [phone] documented as of this encounter Visit Diagnoses Not on filedocumented in this encounter Additional Health Concerns Assessment Noted Time PHQ-9 Depression Total Score: 0 11/04/19 23 10:28 AM EDT documented as of this encounter Care Teams Golf Ball Winder Relationship Specialty Start Date End Date Marjan Sams MD 230 [place] [address] PCP - General Family Medicine 06/04/18 Esteban Nice MD [address] [place] [address] Rheumatology 05/21/24 Ashley Chanel OD 180 [place] [address] Optometry 05/21/24 Alban Koehler [address] [address] Podiatry 10/08/24 Sonja Patel MD [address] [place] [address] Hematology and Oncology 02/26/25 Jack Lyles [address] 110 Thoracic Surgery 02/26/25 Dea Hewitt MD Rheumatology 10/06/24 documented as of this encounter
--- OUTSIDE RECORDS SUMMARY | 2025-05-09 12:57 | XMS_ITS | Encounter Summary ---
Author Organization [employer] Address 75 [facility] 7t [place] [address] Care Team Providers Care Technical Support Director Name Role Phone Marjan Sams MD Primary Care Provider [phone]- [phone] Esteban Nice MD Unavailable Ashley Chanel OD Unavailable [phone] Alban Koehler Unavailable Sonja Patel MD Unavailable [phone] Jack Lyles Unavailable Reason for Visit * Reason Onset Date Comments Med Refill 08/20/2024 Encounter Details Date Type Department Care Team (Late st Contact Info) Description 08/20/2024 Telephone [facility] MEDICINE [address] [place] [address] [phone] Marjan Sams MD 230 [place], [place] [phone] Med Refill Social History Tobacco Use Types [...] 5-325 MG tablet To be sent to: [facility]/pharmacy #[id number] [place], [place] - [address] [place] [address] documented in this encounter Plan of Treatment Upcoming Encounters Date Type Department Care Team (Late st Contact Info) Description 05/27/2025 4:00 PM EST Telemedicine [facility] MEDICINE 230 [place] [address] Marjan Sams MD 230 [place], [place] [phone] documented as of this encounter Visit Diagnoses Not on filedocumented in this encounter Additional Health Concerns Assessment Noted Time PHQ-9 Depression Total Score: 4 02/13/20 24 9:45 AM EDT documented as of this encounter Care Teams Technical Support Director Relationship Specialty Start Date End Date Marjan Sams MD 230 [place] [address] PCP - General Family Medicine 06/04/18 Esteban Nice MD [address] 402 [place] [address] Rheumatology 05/21/24 Ashley Chanel OD 180 [place] [address] Optometry 05/21/24 Alban Koehler 175 [facility] 110 [place] [address] Podiatry 10/08/24 Sonja Patel MD [address] [place] [address] Hematology and Oncology 02/26/25 Jack Lyles 299 [facility] 410 [place], [place] 1104 Thoracic Surgery 02/26/25 Dea Hewitt MD Rheumatology 10/06/24 documented as of this encounter
--- OUTSIDE RECORDS SUMMARY | 2025-05-09 12:57 | XMS_ITS | Encounter Summary ---
Author Organization [employer] Address 75 [facility] 7t [place] [address] Care Team Providers Care Marble Machine Tender Name Role Phone Marjan Sams MD Primary Care Provider [phone] Esteban Nice MD Unavailable Ashley Chanel OD Unavailable [phone] Alban Koehler Unavailable Sonja Patel MD Unavailable [phone] Jack Lyles Unavailable Reason for Visit * Reason Onset Date Comments PT1 10/09/2024 Encounter Details Date Type Department Care Team (Late st Contact Info) Description 10/09/2024 Telephone [facility] MED[facility]INE [address] [place] [address] [phone] Marjan Sams MD 230 [place], [place] [phone] PT1 Social History Tobacco Use Types Packs/Day [...] Y/N: Yes Provider name or facility name: [address] [place] [address] Escort needed: Y/N: No Do you have a wheelchair: Y/N: No If yes- Manual or electric: N/A Visits: (2x monthly) documented in this encounter Plan of Treatment Upcoming Encounters Date Type Department Care Team (Late st Contact Info) Description 05/27/2025 4:00 PM EST Telemedicine [facility] MED[facility]INE 230 [place] [address] Marjan Sams MD 230 [place] [address] documented as of this encounter Visit Diagnoses Not on filedocumented in this encounter Additional Health Concerns Assessment Noted Time PHQ-9 Depression Total Score: 4 02/13/20 24 9:45 AM EDT documented as of this encounter Care Teams Marble Machine Tender Relationship Specialty Start Date End Date Marjan Sams MD 230 [place], [place] [phone] PCP - General Family Medicine 06/04/18 Esteban Nice MD [address] [phone] Rheumatology 05/21/24 Ashley Chanel OD 180 [place] [address] Optometry 05/21/24 Alban Koehler 175 [facility] 110 [place] [address] Podiatry 10/08/24 Sonja Patel MD 575 [place] [address] Hematology and Oncology 02/26/25 Jack Lyles 299 [facility] 410 [place], [place] 110[address] Thoracic Surgery 02/26/25 Dea Hewitt MD Rheumatology 10/06/24 documented as of this encounter
--- OUTSIDE RECORDS SUMMARY | 2025-05-09 12:57 | XMS_ITS | Encounter Summary ---
Author Organization [email or web address] Address 75 [facility] 7t [place] [address] Care Team Providers Care Press Tender Smoke Signal Name Role Phone Marjan Sams MD Primary Care Provider [phone]- [phone] Esteban Nice MD Unavailable Ashley Chanel OD Unavailable [phone] Alban Koehler Unavailable Sonja Patel MD Unavailable [phone] Jack Lyles Unavailable Reason for Visit * Reason Onset Date Comments Med Refill 10/20/2024 Encounter Details Date Type Department Care Team (Late st Contact Info) Description 10/20/2024 Refill [facility] 505 [place], [place] [phone] Marjan Sams MD [address] [place] [address] Arthritis of both knees Social History Tobacco [...] 4:00 PM EST Telemedicine [facility] MED[facility]INE 230 [place] [address] Marjan Sams MD 230 [place] [address] documented as of this encounter Visit Diagnoses Diagnosis Arthritis of both knees documented in this encounter Additional Health Concerns Assessment Noted Time PHQ-9 Depression Total Score: 4 02/13/20 24 9:45 AM EDT documented as of this encounter Care Teams Press Tender Smoke Signal Relationship Specialty Start Date End Date [place], Marjan, MD 230 [place] [address] PCP - General Family Medicine 06/04/18 Esteban Nice MD [address] 402 [place] [address] Rheumatology 05/21/24 Ashley Chanel OD 180 [place] [address] Optometry 05/21/24 Alban Koehler 175 [facility] 110 [place] [address] Podiatry 10/08/24 Sonja Patel MD [address] [place] [address] Hematology and Oncology 02/26/25 Jack Lyles 299 [facility] 410 [place], [place] 110 Thoracic Surgery 02/26/25 Dea Hewitt MD Rheumatology 10/06/24 documented as of this encounter
--- OUTSIDE RECORDS SUMMARY | 2025-05-09 12:57 | XMS_ITS | Encounter Summary ---
Author Organization [employer] [facility] [employer] Address 75 [facility] 7t [place] [address] Care Team Providers Care Generation Technician Name Role Phone Marjan Sams MD Primary Care Provider [phone] Esteban Nice MD Unavailable Ashley Chanel OD Unavailable [phone] Alban Koheler Unavailable Sonja Patel MD Unavailable [phone] Jack Lyles Unavailable Reason for Visit * Reason Onset Date Comments Nurse Triage 09/18/2023 Encounter Details Date Type Department Care Team (Late st Contact Info) Description 09/18/2023 Telephone [facility] MEDICINE [address] [place] [address] [phone] Marjan Sams MD 230 [place], [place] [phone] Nurse Triage Social History Tobacco Use Types [...] the past 12 months, has t he [employer], gas, oil or water [employer] threatened to shut off services in your [...] Info) Description 05/27/2025 4:00 PM EST Telemedicine [facility] MEDICINE 230 [place] [address] Marjan Sams MD 230 [place] [address] documented as of this encounter Visit Diagnoses Not on filedocumented in this encounter Additional Health Concerns Assessment Noted Time PHQ-9 Depression Total Score: 0 11/04/19 23 10:28 AM EDT documented as of this encounter Care Teams Generation Technician Relationship Specialty Start Date End Date Marjan Sams MD 230 [place] [address] PCP - General Family Medicine 06/04/18 Esteban Nice MD [address] 402 [place] [address] Rheumatology 05/21/24 Ashley Chanel OD 180 [place] [address] Optometry 05/21/24 Alban Koehler 175 [facility] 110 [place] [address] Podiatry 10/08/24 Sonja Patel MD [address] [place] [address] Hematology and Oncology 02/26/25 Jack Lyles 299 [facility] 410 [place], [place] 1104 Thoracic Surgery 02/26/25 Dea Hewitt MD Rheumatology 10/06/24 documented as of this encounter
--- OUTSIDE RECORDS SUMMARY | 2025-05-09 12:57 | XMS_ITS | Encounter Summary ---
Author Organization [employer] Address 75 [facility] 7t [place] [address] Care Team Providers Care Lipcoat Sprayer Name Role Phone Marjan Sams MD Primary Care Provider [phone]- [phone] Esteban Nice MD Unavailable Ashley Chanel OD Unavailable [phone] Alban Koehler Unavailable Sonja Patel MD Unavailable [phone] Jack Lyles Unavailable Reason for Visit * Reason Comments Med Refill Encounter Details Date Type Department Care Team (Late st Contact Info) Description 12/19/2024 Refill [facility] MEDICINE 230 [place] [address] Marjan Sams MD 230 [place] [address] History of DVT (deep vein thrombosis) Social [...] Info) Description 05/27/2025 4:00 PM EST Telemedicine [facility] MEDICINE 230 [place] [address] Marjan Sams MD 230 [place] [address] documented as of this encounter Visit Diagnoses Diagnosis History of DVT (deep vein thrombosis) documented in this encounter Additional Health Concerns Assessment Noted Time PHQ-9 Depression Total Score: 4 02/13/20 24 9:45 AM EDT documented as of this encounter Care Teams Lipcoat Sprayer Relationship Specialty Start Date End Date Arden Samsie, MD 230 [place] [address] PCP - General Family Medicine 06/04/18 Esteban Nice MD [address] 402 [place] [address] Rheumatology 05/21/24 Ashley Chanel OD 180 [place] [address] Optometry 05/21/24 Alban Koehler 175 [facility] 110 [place] [address] Podiatry 10/08/24 Sonja Patel MD [address] [place] [address] Hematology and Oncology 02/26/25 Jack Lyles 299 [facility] 410 [place], [place] 110[address] Thoracic Surgery 02/26/25 Dea Hewitt MD Rheumatology 10/06/24 documented as of this encounter
--- OUTSIDE RECORDS SUMMARY | 2025-05-09 12:57 | XMS_ITS | Encounter Summary ---
Author Organization [employer] Address [address] [facility] 7t [place] [address] Care Team Providers Care Salesperson Recreational Vehicles Name Role Phone Marjan Sams MD Primary Care Provider [phone] Esteban Nice MD Unavailable Ashley Chanel OD Unavailable [phone] Alban Koehler Unavailable Sonja Patel MD Unavailable [phone] Jack Lyles Unavailable Reason for Visit * Reason Onset Date Comments Med Refill 10/17/2024 Encounter Details Date Type Department Care Team (Late st Contact Info) Description 10/17/2024 Telephone [facility] MEDICINE [address] [place] [address] [phone] Marjan Sams MD [address] [place], [place] [phone] Med Refill Social History Tobacco Use Types [...] encounter Miscellaneous Notes * Telephone Encounter - eCe Gama - 10/17/2024 8:07 AM EDT TC from pt requesting medication refill. Medications needing refill : oxyCODONE-acetaminophen (Percocet) 5-325 MG tablet To be sent to: [facility]/pharmacy #[id number] - [place], [place] - [address] [place] [address] documented in this encounter Plan of Treatment Upcoming Encounters Date Type Department Care Team (Late st Contact Info) Description 05/27/2025 4:00 PM EST Telemedicine [facility] MEDICINE [address] [place] [address] Marjan Sams MD [address] [place] [address] documented as of this encounter Visit Diagnoses Not on filedocumented in this encounter Additional Health Concerns Assessment Noted Time PHQ-9 Depression Total Score: 4 02/13/20 24 9:45 AM EDT documented as of this encounter Care Teams Salesperson [employer] Veh[employer] Relationship Specialty Start Date End Date Marjan Sams MD [address] [place], [place] [phone] PCP - General Family Medicine 06/04/18 Esteban Nice MD [address] [address] Rheumatology 05/21/24 Ashley Chanel OD 180 [place] [address] Optometry 05/21/24 Alban Koehler 175 [facility] 110 [place] [address] Podiatry 10/08/24 Sonja Patel MD [address] [place] [address] Hematology and Oncology 02/26/25 Jack Lyles 299 [facility] [address] [place], [place] [address] Thoracic Surgery 02/26/25 Dea Hewitt MD Rheumatology 10/06/24 documented as of this encounter
--- OUTSIDE RECORDS SUMMARY | 2025-05-09 12:57 | XMS_ITS | Encounter Summary ---
Author Organization [employer] Address [address] [facility] 7t [place] [address] Care Team Providers Care State Trooper Name Role Phone Marjan Sams MD Primary Care Provider [phone] Esteban Nice MD Unavailable Aslhey Chanel OD Unavailable [phone] Alban Koehler Unavailable Sonja Patel MD Unavailable [phone] Jack Lyles Unavailable Reason for Visit * Reason Onset Date Comments Call Back Request 10/14/2024 Encounter Details Date Type Department Care Team (Late st Contact Info) Description 10/14/2024 Telephone [facility] MEDICINE [address] [place] [id number] Marjan Sams MD [address] [place] [address] Call Back Request (/) Social History Tobacco [...] RN - 10/14/2024 12:04 PM EDT Called [facility] scheduling who said that the pt has a DEXA scan scheduled for 10/29/24 but noultrasounds today or otherwise. Nothing noted in chart. Called pt and informed her of this, pt unaware of US ordered by specialist. Advised her if anything else comes up regarding this will let her know. Pt verbalized understanding. Desktop Architect found note in chart from xray of the spine ordered by Dr Koehler (podiatry) that recommended follow up Vascular US abdominal aorta aneurysm (AAA) screening. Called pt back to advise of this and gave her phone number to call to clarify with Dr Koehler and to reschedule. [phone] . Pt verbalized understanding, to call that [...] Info) Description 05/27/2025 4:00 PM EST Telemedicine [facility] MEDICINE [address] [place] [address] Marjan Sams MD [address] [place] [address] documented as of this encounter Visit Diagnoses Not on filedocumented in this encounter Additional Health Concerns Assessment Noted Time PHQ-9 Depression Total Score: 4 02/13/20 24 9:45 AM EDT documented as of this encounter Care Teams State Trooper Relationship Specialty Start Date End Date Marjan Sams MD [address] [place] [address] PCP - General Family Medicine 06/04/18 Esteban Nice MD [address] [place] [address] [place] [phone] Rheumatology 05/21/24 Ashley Chanel OD [address] [place] [address] Optometry 05/21/24 Alban Koehler 175 [facility] 110 [place] [address] Podiatry 10/08/24 Sonja Patel MD [address] [place] [address] Hematology and Oncology 02/26/25 Jack Lyles 299 [facility] 410 [place], [place] [address] Thoracic Surgery 02/26/25 Dea Hewitt MD Rheumatology 10/06/24 documented as of this encounter
[2025-05-09] MEDS: Lactated Ringers 1,000 ML 999 ML IV (13:00)
[2025-05-09 13:07] LABS: Hematocrit 30.6 % (37.0-47.0); Hemoglobin 9.9 g/dl (12.0-16.0); Imm Gran Abs Auto 0.01 X10*3/uL (0.00-0.03); Imm Gran Pct Auto 0.3 % (0.0-0.4); Lymphocytes Absolute Auto 0.4 X10*3/uL (1.2-4.9); MANUAL DIFF FLAG NO; Mean Corpuscular HGB Conc 32.4 g/dl (31.0-35.0); Mean Corpuscular Hemoglobin 27.0 pg (27.0-33.0); Mean Corpuscular Volume 83.6 fL (80.0-98.0); NRBC Abs Auto 0.000 X10*3/uL (0.0-0.012); NRBC Pct Auto 0.0 /100WBC (0.0-0.2); Platelet Count 139 X10*3/uL (160-400); Red Blood Count 3.66 X10*6/uL (4.20-5.50); White Blood Count 3.6 X10*3/uL (4.8-10.8)
[2025-05-09 13:33] LABS: Alanine Aminotransferase 8 U/L (0-31); Albumin Level 3.7 g/dL (3.5-5.0); Alkaline Phosphatase 97 U/L (39-117); Anion Gap 13 (12-20); Aspartate Amino Transferase 21 U/L (5-31); Blood Urea Nitrogen 9 mg/dL (9-16); Calcium 9.6 mg/dL (8.4-10.2); Carbon Dioxide 22 mmol/L (22-29); Chloride 107 mmol/L (96-108); Creatinine Clr Calc Pharmacy 74.8; Estimated Glomerular Filt Rate > 60; Magnesium 1.8 mg/dL (1.6-2.6); Potassium 4.0 mmol/L (3.3-5.1); Sodium 138 mmol/L (135-145); Total Protein 8.1 g/dL (6.5-8.0)
[2025-05-09 13:39] LABS: Troponin-I High Sensitivity 8.7 ng/L (<3.5-17.0)
--- NOTE | 2025-05-09 13:41 | PC.NURSE ---
Pt arrived to ED actively vomiting. C/o blood in stool, n/v. Pt receiving chemotherapy, last treatment yesterday. Marked hypotension. Provider notified, IVF administered
[2025-05-09 13:54] LABS: Resp Syncy Virus RNA Qual PCR NEGATIVE (Negative); SARS COV2 PCR INHOUSE NEGATIVE (Negative)
[2025-05-09] MEDS: iohexoL 350 MG/ML 100 ML INFUS..BTL IV (15:10)
--- NOTE | 2025-05-09 19:20 | PC.NURSE ---
this RN assumed care of this pt @1900, pt noted to be grimacing and reporting 8/10 abdominal pain, pt medicated per AUG, connected to cardiac and SPO2 monitoring, provided w/ warm blanket for comfort, pending ambulation trial, call light within reach for safety
--- NOTE | 2025-05-09 20:04 | MHC.EDTECH ---
this tech performed ambulation trial with pt. Pt sat dropped to 88% when transitioning from sitting to standing and 90% while walking, with increased work of breathing. Provider aware.
[2025-05-09 20:23] LABS: Appearance Urine Clear; Glucose Urine UA Negative (Negative); PH 7.5 (5.0-9.0); Specific Gravity - Urine >= 1.030 (1.005-1.025)
--- NOTE | 2025-05-09 21:10 | P.HPHOSP_ITS ---
History of Present Illness Date of Service: 05/09/25 Chief Complaint: BRBPR 60-year-old female with a past medical history of squamous cell carcinoma of the lung-on chemotherapy last received yesterday, COPD, SLE, DVT, osteopenia, DARIN, tobacco dependence; presented to the hospital with a chief complaint of constipation/blood in the stool. Patient reports that she found constipated; she went to the bathroom today she had noticed blood in the stool-small in quantity. Denies similar episodes in the past. Mentions she has been on chemotherapy for her lung cancer last received yesterday. Denies any cough Denies any shortness of breath Denies any chest pain or palpitations. Denies any urinary symptoms. Review of all other systems is negative except mentioned above ER course: Per ER team, patient noted to have hemorrhoids; H&H stable; CT abdomen pelvis showed findings concerning for stercoral colitis. CT chest showed left lung opacification. [facility] Medical History History of DVT (deep vein thrombosis) (~2014) Systemic lupus erythematosus (~2006) Long-term use of hydroxychloroquine Osteopenia (~2024) COPD (chronic obstructive pulmonary disease) Asthma Obstructive sleep apnea Nicotine dependence, cigarettes, uncomplicated Hyperplastic colon polyp Family History Mother Breast cancer Sister Breast cancer Surgical History History of colonoscopy Social History Household Members: Significant Other Housing: House Do you presently have visiting nurse or other home services: No Alcohol intake: current Alcohol intake frequency: does not drink Alcohol type: hard liquor Patient Tobacco Use Status: Current everyday Tobacco user Tobacco use type: Cigarette Cigarette Packs Per Day: 1 Cigarettes Per Day: 2 Years Smoked: (onset 15yo, 1/2ppd x 44yrs, 22pyh) Patient Interested in Nicotine Replacement: No Second Hand Smoke Exposure: No Currently Displaying Signs/Symptoms of Drug Intoxication Withdrawal: No Have you been hit, kicked, punched, or otherwise hurt by someone within the past year? If so, by whom?: No Do you feel safe in your current relationship?: Yes Is there a partner from a previous relationship who is making you feel unsafe now?: No Are you made to feel afraid or neglected: No Advance Directives: No Advance Directives Information Provided: No Do you have a plan to hurt others: No Plan Recently lost weight without trying: Yes How much weight loss: Unsure Eating poorly because of decreased appetite: Yes Nutrition screen score: 5 Nutrition Risks: No Nutritional Risk Patient : No : No Poor oral hygiene: No service: No Current occupational status: disabled Meds Allergies Allergy/AdvReac Type Severity Reaction Status Date / Time paclitaxel Allergy Severe Shortness Verified 05/09/25 12:11 of Breath Active Medications: Current Medications Acetaminophen (Acetaminophen 325 Mg Tablet) 650 mg PO Q6H PRN PRN Reason: Pain, Mild 1-3,fever,headache Albuterol/Ipratropium (Albuterol/Iprat 2.5/0.5mg 3 Ml Ampul.Neb) 3 ml INHALE Q4H PRN PRN Reason: Shortness of Breath/Wheezing Benzonatate (Benzonatate 100 Mg Capsule) 100 mg PO TID PRN PRN Reason: Cough Calcium Carbonate (Calcium Carbonate 750 Mg Tab.Chew) 750 mg PO Q4H PRN PRN Reason: Heartburn Enoxaparin Sodium (Enoxaparin Sodium 40 Mg/0.4 Ml Syringe) 40 mg SUBCUT Q24H CARLEY Lactated Ringer's (Lr) 1,000 mls @ 100 mls/hr IVCONT .Q10H CARLEY Magnesium Hydroxide (Milk Of Magnesia 30 Ml Oral.Susp) 30 ml PO DAILY PRN PRN Reason: Constipation Melatonin (Melatonin 3 Mg Tablet) 6 mg PO BEDTIME PRN PRN Reason: Insomnia Sodium Chloride (0.9 % Sodium Chloride Flush 3 Ml Syringe) 3 ml IVFLUSH QSHIFT CARLEY Home Medications ?Medication ?Instructions ?Recorded ?Confirmed ?Last Taken ?Type aspirin 81 mg tablet,delayed 81 mg PO DAILY 03/19/20 1 07/11/24 04/20/25 History release (Adult Low Dose Aspirin) oxycodone-acetaminophen 5 mg-325 1 tab PO Q12H PRN Amadeo n 03/19/20 05/10/25 02/13/25 History mg tablet (Percocet) levalbuterol HCl 1.25 mg/3 mL 1.25 mg inhalation Q4H P RN 09/13/22 05/10/25 02/16/25 History solution for nebulization Respiratory Distress hydroxychloroquine 200 mg tablet 400 mg PO DAILY 04/2005/10/25 04/20/25 History sennosides 8.6 mg-docusate sodium 1 tab-cap PO BID 05/10/25 04/20/25 History 50 mg tablet (Senna with Docusate Sodium) apixaban 5 mg tablet 5 mg PO BID 05/10/25 5 Unknown History fluticasone fur. 200 mcg-umeclid 1 inh inhalation NED Y 05/10/25 05/10/25 Unknown History 62.5 mcg-vilant 25 mcg inhalat.powder (Trelegy Ellipta) Physical Exam 2 Vital Signs and Narrative: Vital Signs: Last Vital Signs Temp 97.7 F 05/09/25 20:16 Pulse 72 05/09/25 20:16 Resp 21 H 05/09/25 20:16 BP 113/83 05/09/25 20:16 Pulse Ox 95 05/09/25 20:16 O2 Del Method Room Air 05/09/25 20:16 BMI result Body Mass Index 24.2 Gen: Appears be in no acute distress HEENT: NCAT, Moist mucosa. Pulmonary: Diminished breath sounds on the left side CVS: Normal S1-S2 Abdomen: BS+, Soft, Nontender Extremities: Warm well perfused Neuro: Alert and awake. Results Labs 05/10/25 06:18 05/10/25 06:18 Labs: Laboratory Results - last 24 hr 05/09/25 05/09/25 12:50 20:12 MCV 83.6 MCH 27.0 MCHC 32.4 RDW 18.0 H Plt Count 139 L MPV 8.7 L Immature Gran % (Auto) 0.3 Neut % (Auto) 87.9 H Lymph % (Auto) 10.4 L [place] % (Auto) 1.4 L Eos % (Auto) 0.0 Baso % (Auto) 0.0 Lymph # (Auto) 0.4 L [place] # (Auto) 0.1 Eos # (Auto) 0.0 Baso # (Auto) 0.0 Abs Immat Gran (auto) 0.01 Absolute Neuts (auto) 3.1 Absolute Nucleated RBC 0.000 Nucleated RBC % (auto) 0.0 Anion Gap 13 Estim Creat Clear Calc 74.8 Estimated GFR > 60 Random Glucose 100 Lactic Acid 1.0 Calcium 9.6 Magnesium 1.8 Total Bilirubin 0.5 AST 21 ALT 8 Alkaline Phosphatase 97 Troponin I High Sens 8.7 D Total Protein 8.1 H Albumin 3.7 Urine Color Yellow Urine Appearance Clear Urine pH 7.5 Ur Specific [place] >= 1.030 H Urine Protein Negative Urine Glucose (UA) Negative Urine Ketones Negative Urine Blood Negative Urine Nitrite Negative Ur Leukocyte Esterase Negative Influenza Type A (PCR) NEGATIVE Influenza Type B (PCR) NEGATIVE RSV RNA Qual (PCR) NEGATIVE SARS-CoV-2 RNA (RT-PCR) NEGATIVE Assessment and Plan (1) Stercoral colitis: Status: Acute Plan 60-year-old female with a past medical history of squamous cell carcinoma of the lung-on chemotherapy last received yesterday, COPD, SLE, DVT, osteopenia, DARIN, tobacco dependence; presented to the hospital with a chief complaint of constipation/blood in the stool. Admitted for following Stercoral colitis: BRBPR: Continue ceftriaxone Flagyl Bowel regimen GI consult NPO for now IV ppi Left lung opacification: Lung cancer: Patient respiratory status currently stable Pulmonology consult Oncology follow-up recommended DuoNebs p.r.n. Supplemental oxygen p.r.n. HX DVT: Continue home Eliquis Med reconciliation: Resume home medications once med rec is completed by pharmacy in a.m. DVT prophylaxis: Patient on Eliquis Code status: Full code Quality Stroke Does the patient have a stroke diagnosis?: No VTE Prior VTE?: No VTE Risk Level:: Medical - moderate - high VTE Device Contraindication: Treatment Not Indicated VTE Drug Contraindication: N/A - Med Ordered
[2025-05-09] MEDS: Lactated Ringers 1,000 ML 100 ML IVCONT (22:01)
[2025-05-09] MEDS: metroNIDAZOLE/NS 500 MG/100 ML PIGGYBACK 100 MG IV (22:01)
--- NOTE | 2025-05-09 22:54 | HO.NURTONUR ---
Patient is a 60-year-old female, A+OX4, Full code, clear liquid diet, with history of squamous cell carcinoma of left lung, last chemo treatment was yesterday, SLE, COPD, DVT 2014 presenting to the emergency department with complaint of constipation and bright red blood noted in stool this morning. Patient states that she was on the toilet straining to have a bowel movement and noticed some blood after having a bowel movement. Denies history of same in the past. Shortness of breath reported by triage nurse, however, patient is currently denying any shortness of breath that is different from her baseline. Complains of generalized abdominal pain and nausea but denies vomiting, denies diarrhea. Denies fevers. In the ED she was treated w/ FLagyl, Rocephin d/t colitis and zofran 4mg x3 for nausea, dilaudid 4mg IV and fentanyl 50mcg IV x2 for pain. Access: She has a single lumen port to the right chest, currently has Flagyl running, will have LR running @100ml/hr Imaging: CXR: Interval worsening with near complete consolidation of the left gm thorax with volume loss and leftward deviation of the mediastinum. ABD/Pelvis CT: Large rectal stool burden with mild rectal wall thickening concerning for stercoral colitis. Complete consolidation of the left lung base with volume loss and associated leftward mediastinal shift. Correlate with dedicated chest imaging. Sigmoid diverticulosis without evidence of acute diverticulitis. EKG: NSR Ambulates w/ a SB/X1 assist, during her ambulation trial she had increased WOB and her SPO2 dropped between 88-90% on RA w/ changing positions and walking down the fleming. Being admitted for: Dx: Stercoral colitis
[2025-05-10] VITALS (8 sets, daily range): BP systolic 93–132; BP diastolic 63–76; PULSE 60–76; RESP 16–20; TEMP 36.2–36.6; O2SAT 92–100
[2025-05-10] MEDS: 0.9 % Sodium Chloride Flush 3 ML SYRINGE IVFLUSH ×2 (01:13→23:46)
[2025-05-10] MEDS: metroNIDAZOLE/NS 500 MG/100 ML PIGGYBACK 100 MG IV ×3 (05:17→21:07)
[2025-05-10 06:43] LABS: MANUAL DIFF FLAG NO
[2025-05-10 06:46] LABS: Hematocrit 28.7 % (37.0-47.0); Hemoglobin 9.4 g/dl (12.0-16.0); Imm Gran Abs Auto 0.02 X10*3/uL (0.00-0.03); Imm Gran Pct Auto 0.5 % (0.0-0.4); Lymphocytes Absolute Auto 0.7 X10*3/uL (1.2-4.9); Mean Corpuscular HGB Conc 32.8 g/dl (31.0-35.0); Mean Corpuscular Hemoglobin 27.3 pg (27.0-33.0); Mean Corpuscular Volume 83.4 fL (80.0-98.0); NRBC Abs Auto 0.000 X10*3/uL (0.0-0.012); NRBC Pct Auto 0.0 /100WBC (0.0-0.2); Platelet Count 127 X10*3/uL (160-400); Red Blood Count 3.44 X10*6/uL (4.20-5.50); White Blood Count 4.2 X10*3/uL (4.8-10.8)
[2025-05-10 07:09] LABS: Alanine Aminotransferase < 6 U/L (0-31); Albumin Level 3.2 g/dL (3.5-5.0); Alkaline Phosphatase 82 U/L (39-117); Anion Gap 14 (12-20); Aspartate Amino Transferase 27 U/L (5-31); Blood Urea Nitrogen 8 mg/dL (9-16); Calcium 8.8 mg/dL (8.4-10.2); Carbon Dioxide 23 mmol/L (22-29); Chloride 106 mmol/L (96-108); Creatinine Clr Calc Pharmacy 79.8; Estimated Glomerular Filt Rate > 60; Potassium 3.7 mmol/L (3.3-5.1); Sodium 139 mmol/L (135-145); Total Protein 7.4 g/dL (6.5-8.0)
[2025-05-10 07:16] LABS: Troponin-I High Sensitivity 11.2 ng/L (<3.5-17.0)
--- NOTE | 2025-05-10 08:46 | PHA.MEDREC ---
Pharmacy Consult ? Medication Reconciliation Pharmacy has completed the medication reconciliation.Med rec complete, spoke to patient and compared with pharmacy claims. Patient cnfirms she takes hydroxychloroquine 2 tabs every day now
[2025-05-10] MEDS: Lactated Ringers 1,000 ML 100 ML IVCONT ×3 (08:47→21:13)
[2025-05-10] MEDS: Aspirin Enteric Coated 81 MG TABLET.DR PO (10:28)
--- NOTE | 2025-05-10 11:49 | MHC.CM.PN ---
IMM GIVEN 05/10. PATIENT LIVES AT HOME WITH OTHERS, IS SELF-CARE, AND WILL ARRANGE HER OWN TRANSPORT HOME AT DISCHARGE. HCP ON FILE AND VERIFIED. PCP: DR. CHRISSY LEWIS
[2025-05-10] MEDS: Morphine Sulfate Immed Release 15 MG TABLET PO (12:49)
--- NOTE | 2025-05-10 16:32 | P.PNIM_ITS ---
Subjective Subjective Date of Service: 05/10/25 Interval History: Complains of back pain radiating to stomach and chest Denies shortness or breath or difficulty breathing Denies cough No difficulty swallowing Denies nausea, vomiting, diarrhea abdominal pain No additional episodes of blood in the urine Review of Systems Review of Systems: Yes all other systems are reviewed and are negative Physical Exam 2 Exam: Exam: General: AOx3, appears uncomfortable Resp: Left lung diminished throughout, otherwise CTA CVS: S1, S2, RRR GI: +BS, NT, no distention Skin: Warm, dry Neuro: Cranial nerves II-XII grossly intact bilaterally. Motor grossly intact bilaterally Extremities: No edema Psych: Appropriate affect Vital Signs: Vital Signs: Last Vital Signs Temp 97.7 F 05/10/25 16:00 Pulse 69 05/10/25 16:00 Resp 18 05/10/25 16:00 BP 117/72 05/10/25 16:00 Pulse Ox 97 05/10/25 16:00 O2 Del Method Room Air 05/10/25 16:00 BMI result Body Mass Index 24.2 Objective Data Active Medications Acetaminophen (Acetaminophen 325 Mg Tablet) 650 mg PO Q6H PRN PRN Reason: Pain, Mild 1-3,fever,headache Albuterol/Ipratropium (Albuterol/Iprat 2.5/0.5mg 3 Ml Ampul.Neb) 3 ml INHALE Q4H PRN PRN Reason: Shortness of Breath/Wheezing Apixaban (Apixaban 5 Mg Tablet) 5 mg PO BID [facility] On Hold: 05/10/25 11:11 Last Admin: 05/10/25 08:46 Dose: 5 mg Documented By: ANTONIO Aspirin (Aspirin Enteric Coated 81 Mg Tablet.) 81 mg PO DAILY [facility] Last Admin: 05/10/25 10:28 Dose: 81 mg Documented By: ORVILLE Atorvastatin Calcium (Atorvastatin Calcium 40 Mg Tablet) 40 mg PO BEDTIME [facility] Benzonatate (Benzonatate 100 Mg Capsule) 100 mg PO TID PRN PRN Reason: Cough Calcium Carbonate (Calcium Carbonate 750 Mg Tab.Chew) 750 mg PO Q4H PRN PRN Reason: Heartburn Dexamethasone (Dexamethasone 4 Mg Tablet) 4 mg PO BID [facility] Last Admin: 05/10/25 10:30 Dose: 4 mg Documented By: ORVILLE Fluticasone/Umeclidinium/Vilanterol (Fluticasone/Umeclidinium/Vilanterol 200/62.5/25 Blst.W.Dev) 1 puff INHALE DAILY [facility] Last Admin: 05/10/25 11:19 Dose: Not Given Documented By: SUBHA Non-Admin Reason: med unavailable pharm called Folic Acid (Folic Acid 1 Mg Tablet) 1 mg PO DAILY [facility] Last Admin: 05/10/25 10:28 Dose: 1 mg Documented By: ORVILLE Hydromorphone HCl (Hydromorphone Hcl 0.5 Mg/0.5 Ml Syringe) 0.5 mg IVPUSH Q3H PRN; Protocol PRN Reason: Breakthrough Pain Last Admin: 05/10/25 09:58 Dose: 0.5 mg Documented By: ORVILLE Hydroxychloroquine Sulfate (Hydroxychloroquine Sulfate 200 Mg Tablet) 400 mg PO DAILY [facility] Last Admin: 05/10/25 10:29 Dose: 400 mg Documented By: ORVILLE Lactated Ringer's (Lr) 1,000 mls @ 100 mls/hr IVCONT .Q10H [facility] Last Admin: 05/10/25 10:31 Dose: 100 mls/hr Documented By: ORVILLE Metronidazole (Flagyl) 500 mg in 100 mls @ 100 mls/hr IV Q8H [facility] Last Infusion: 05/10/25 15:12 Dose: Infused Documented By: ORVILLE Ceftriaxone Sodium 1 gm/ (Sodium Chloride) 50 mls @ 100 mls/hr IV Q24H [facility] Last Infusion: 05/09/25 22:37 Dose: Infused Documented By: HOMER Magnesium Hydroxide (Milk Of Magnesia 30 Ml Oral.Susp) 30 ml PO DAILY PRN PRN Reason: Constipation Melatonin (Melatonin 3 Mg Tablet) 6 mg PO BEDTIME PRN PRN Reason: Insomnia Last Admin: 05/09/25 22:19 Dose: 6 mg Documented By: HOMER Comments: pt requesting medication to sleep Morphine Sulfate (Morphine Sulfate Immed Release 15 Mg Tablet) 15 mg PO BID PRN PRN Reason: Pain, Moderate(Pain Scale 4-6) Last Admin: 05/10/25 12:49 Dose: 15 mg Documented By: ORVILLE Polyethylene Glycol (Polyethylene Glycol 3350 17 Gm Powd.Pack) 17 gm PO DAILY PRN PRN Reason: constipation Senna/Docusate Sodium (Sennosides/Docusate Sodium Tablet) 1 tab PO BID [facility] Sodium Chloride (0.9 % Sodium Chloride Flush 3 Ml Syringe) 3 ml IVFLUSH QSHIFT [facility] Last Admin: 05/10/25 08:45 Dose: Not Given Documented By: ANTONIO Non-Admin Reason: IV Running Labs 05/10/25 06:18 05/10/25 06:18 Labs: Laboratory Results - last 24 hr 05/09/25 05/10/25 20:12 06:18 MCV 83.4 MCH 27.3 MCHC 32.8 RDW 18.2 H Plt Count 127 L MPV 9.1 L Immature Gran % (Auto) 0.5 H Neut % (Auto) 79.4 H Lymph % (Auto) 17.0 L [place] % (Auto) 3.1 Eos % (Auto) 0.0 Baso % (Auto) 0.0 Lymph # (Auto) 0.7 L [place] # (Auto) 0.1 Eos # (Auto) 0.0 Baso # (Auto) 0.0 Abs Immat Gran (auto) 0.02 Absolute Neuts (auto) 3.3 Absolute Nucleated RBC 0.000 Nucleated RBC % (auto) 0.0 Anion Gap 14 Estim Creat Clear Calc 79.8 Estimated GFR > 60 Random Glucose 77 Calcium 8.8 D Total Bilirubin 0.5 AST 27 ALT < 6 Alkaline Phosphatase 82 Troponin I High Sens 11.2 Total Protein 7.4 Albumin 3.2 L Urine Color Yellow Urine Appearance Clear Urine pH 7.5 Ur Specific [place] >= 1.030 H Urine Protein Negative Urine Glucose (UA) Negative Urine Ketones Negative Urine Blood Negative Urine Nitrite Negative Ur Leukocyte Esterase Negative Microbiology Microbiology Results: Microbiology 05/09/25 12:50 Blood Culture - Preliminary Blood - Venous No growth after 24 hours. 05/09/25 12:50 Blood Culture - Preliminary Blood - Venous No growth after 24 hours. Assessment and Plan (1) BRBPR (bright red blood per rectum): Status: Acute (2) Stercoral colitis: Status: Acute Plan 60-year-old female with a past medical history of squamous cell carcinoma of the lung-on chemotherapy last received yesterday, COPD, SLE, DVT, osteopenia, DARIN, tobacco dependence; presented to the hospital with a chief complaint of constipation/blood in the stool. Admitted for following BRBPR with concerns for stercoral colitis As seen on CT Continue empiric ceftriaxone Flagyl Bowel regimen GI consult Clear liquid diet for now, advance as tolerated IV ppi Trend H&H; hold Eliquis for now Left lung opacification Pt with hx of squamous cell carcinoma of lung Patient respiratory status currently stable Pulmonology consulted, will check CT of chest wo/w contrast NPO after midnight for possible broncho Oncology consult, follows with Dr. Jorge Damon p.r.n. Supplemental oxygen p.r.n. HX DVT Eliquis on hold due to BRBPR DVT prophylaxis: Patient on Eliquis Code status: Full code Pt requires continued hospitalization for additional treatment and further workup for both possible colitis as well as worsening left lung opacification. Pt will be receiving empiric IV antibiotics as well as likely bronchoscopy tomorrow. Quality Stroke Does the patient have a stroke diagnosis?: No VTE Prior VTE?: No VTE Risk Level:: Medical - moderate - high VTE Device Contraindication: Treatment Not Indicated VTE Drug Contraindication: N/A - Med Ordered
--- NOTE | 2025-05-10 19:13 | PM.CNPUL ---
History of Present Illness History of Present Illness Consult date: 05/10/25 Chief complaint: Stercoral colitis Narrative: This is an inpt pulmonary consultation. The patient is a 60-year-old female with a past medical history of squamous cell carcinoma of the lung-on chemotherapy last received yesterday, COPD, SLE, DVT, osteopenia, DARIN, tobacco dependence; presented to the hospital with a chief complaint of constipation/blood in the stool. in the ER the patient did have a chest x-ray demonstrating complete collapse of the left hemithorax. Significantly worse than her x-ray from 03/05/2025 demonstrating partial collapse the mediastinum is shifted towards the ipsilateral side suggesting more of a collapse rather than pleural effusion. The patient already has significant hilar lymphadenopathy that may be causing his recent compression of the airways. The patient will go ahead and have a repeat CT scan of the chest tonight to further address the abnormalities on x-ray. On further questioning she denies any shortness of breath at rest. Although she does have some shortness of breath with activity. [id number] severity. She denies any coughing denies any hemoptysis. Again will brought her in was the bright red blood per rectum. Review of Systems Constitutional: Constitutional: Denies body ache(s), Denies chills, Denies fatigue, Denies fever(s) and Denies headache(s) ENT: Reports Normal hearing present, Denies headache(s), Denies nasal congestion and Denies sore throat Cardiovascular: Cardiovascular: Denies chest pain, Denies rapid heart rate, Denies lightheadedness, Denies dyspnea and Reports dyspnea on exertion Respiratory: Respiratory: Denies chest congestion, Denies cough, Denies hemoptysis, Denies dyspnea, Reports dyspnea on exertion and Denies wheezing Gastrointestinal: Gastrointestinal: Reports as per HPI, Reports hematochezia and Denies vomiting Genitourinary: Genitourinary: Denies dysuria and Denies urinary urgency Musculoskeletal: Musculoskeletal: Denies myalgias Integumentary/Breasts: Skin/Breast: Denies rash Neurologic: Reports Normal hearing present and Denies headache(s) Endocrine: Endocrine: Denies fatigue Hematologic/Lymphatic: Hematologic/Lymphatic: Denies easy bleeding Allergic/Immunologic: Allergic/Immunologic: Denies wheezing PMFSH Past Medical History Medical History History of DVT (deep vein thrombosis) (~2014) Systemic lupus erythematosus (~2006) Long-term use of hydroxychloroquine Osteopenia (~2024) COPD (chronic obstructive pulmonary disease) Asthma Obstructive sleep apnea Nicotine dependence, cigarettes, uncomplicated Hyperplastic colon polyp Family History Family History Mother Breast cancer Sister Breast cancer Surgical History Surgical History History of colonoscopy Social History Social History Household Members: Significant Other Housing: House Do you presently have visiting nurse or other home services: No Alcohol intake: current Alcohol intake frequency: does not drink Alcohol type: hard liquor Patient Tobacco Use Status: Current everyday Tobacco user Tobacco use type: Cigarette Cigarette Packs Per Day: 1 Cigarettes Per Day: 2 Years Smoked: (onset 15yo, 1/2ppd x 44yrs, 22pyh) Patient Interested in Nicotine Replacement: No Second Hand Smoke Exposure: No Currently Displaying Signs/Symptoms of Drug Intoxication Withdrawal: No Have you been hit, kicked, punched, or otherwise hurt by someone within the past year? If so, by whom?: No Do you feel safe in your current relationship?: Yes Is there a partner from a previous relationship who is making you feel unsafe now?: No Are you made to feel afraid or neglected: No Advance Directives: No Advance Directives Information Provided: No Do you have a plan to hurt others: No Plan Recently lost weight without trying: Yes How much weight loss: Unsure Eating poorly because of decreased appetite: Yes Nutrition screen score: 5 Nutrition Risks: No Nutritional Risk Patient : No : No Poor oral hygiene: No service: No Current occupational status: disabled Meds Allergies Allergy/AdvReac Type Severity Reaction Status Date / Time paclitaxel Allergy Severe Shortness Verified 05/09/25 12:11 of Breath Active Medications: Current Medications Acetaminophen (Acetaminophen 325 Mg Tablet) 650 mg PO Q6H PRN PRN Reason: Pain, Mild 1-3,fever,headache Albuterol/Ipratropium (Albuterol/Iprat 2.5/0.5mg 3 Ml Ampul.Neb) 3 ml INHALE Q4H PRN PRN Reason: Shortness of Breath/Wheezing Apixaban (Apixaban 5 Mg Tablet) 5 mg PO BID [facility] On Hold: 05/10/25 11:11 Last Admin: 05/10/25 08:46 Dose: 5 mg Aspirin (Aspirin Enteric Coated 81 Mg Tablet.Dr) 81 mg PO DAILY [facility] Last Admin: 05/10/25 10:28 Dose: 81 mg Atorvastatin Calcium (Atorvastatin Calcium 40 Mg Tablet) 40 mg PO BEDTIME [facility] Benzonatate (Benzonatate 100 Mg Capsule) 100 mg PO TID PRN PRN Reason: Cough Calcium Carbonate (Calcium Carbonate 750 Mg Tab.Chew) 750 mg PO Q4H PRN PRN Reason: Heartburn Dexamethasone (Dexamethasone 4 Mg Tablet) 4 mg PO BID [facility] Last Admin: 05/10/25 10:30 Dose: 4 mg Fluticasone/Umeclidinium/Vilanterol (Fluticasone/Umeclidinium/Vilanterol 200/62.5/25 Blst.W.Dev) 1 puff INHALE DAILY [facility] Last Admin: 05/10/25 11:19 Dose: Not Given Folic Acid (Folic Acid 1 Mg Tablet) 1 mg PO DAILY [facility] Last Admin: 05/10/25 10:28 Dose: 1 mg Hydromorphone HCl (Hydromorphone Hcl 0.5 Mg/0.5 Ml Syringe) 0.5 mg IVPUSH Q3H PRN; Protocol PRN Reason: Breakthrough Pain Last Admin: 05/10/25 09:58 Dose: 0.5 mg Hydroxychloroquine Sulfate (Hydroxychloroquine Sulfate 200 Mg Tablet) 400 mg PO DAILY [facility] Last Admin: 05/10/25 10:29 Dose: 400 mg Lactated Ringer's (Lr) 1,000 mls @ 100 mls/hr IVCONT .Q10H [facility] Last Admin: 05/10/25 10:31 Dose: 100 mls/hr Metronidazole (Flagyl) 500 mg in 100 mls @ 100 mls/hr IV Q8H [facility] Last Infusion: 05/10/25 15:12 Dose: Infused Ceftriaxone Sodium 1 gm/ (Sodium Chloride) 50 mls @ 100 mls/hr IV Q24H [facility] Last Infusion: 05/09/25 22:37 Dose: Infused Magnesium Hydroxide (Milk Of Magnesia 30 Ml Oral.Susp) 30 ml PO DAILY PRN PRN Reason: Constipation Melatonin (Melatonin 3 Mg Tablet) 6 mg PO BEDTIME PRN PRN Reason: Insomnia Last Admin: 05/09/25 22:19 Dose: 6 mg Morphine Sulfate (Morphine Sulfate Immed Release 15 Mg Tablet) 15 mg PO BID PRN PRN Reason: Pain, Moderate(Pain Scale 4-6) Last Admin: 05/10/25 12:49 Dose: 15 mg Ondansetron HCl (Ondansetron Hcl 4 Mg/2 Ml Vial) 4 mg IVPUSH Q8H PRN PRN Reason: Nausea and Vomiting Polyethylene Glycol (Polyethylene Glycol 3350 17 Gm Powd.Pack) 17 gm PO DAILY PRN PRN Reason: constipation Senna/Docusate Sodium (Sennosides/Docusate Sodium Tablet) 1 tab PO BID [facility] Sodium Chloride (0.9 % Sodium Chloride Flush 3 Ml Syringe) 3 ml IVFLUSH QSHIFT [facility] Last Admin: 05/10/25 08:45 Dose: Not Given Home Medications ?Medication ?Instructions ?Recorded ?Confirmed ?Last Taken ?Type aspirin 81 mg tablet,delayed 81 mg PO DAILY 03/19/20 05/10/25 04/20/25 History release (Adult Low Dose Aspirin) oxycodone-acetaminophen 5 mg-325 1 tab PO Q12H PRN Pain 03/19/20 05/10/25 02/13/25 History mg tablet (Percocet) levalbuterol HCl 1.25 mg/3 mL 1.25 mg inhalation Q4H PRN 09/13/22 05/10/25 02/16/25 History solution for nebulization Respiratory Distress hydroxychloroquine 200 mg tablet 400 mg PO DAILY 04/20/25 05/10/25 04/20/25 History sennosides 8.6 mg-docusate sodium 1 tab-cap PO BID 04/20/25 05/10/25 04/20/25 History 50 mg tablet (Senna with Docusate Sodium) apixaban 5 mg tablet 5 mg PO BID 05/10/25 05/10/25 Unknown History fluticasone fur. 200 mcg-umeclid 1 inh inhalation DAILY 05/10/25 05/10/25 Unknown History 62.5 mcg-vilant 25 mcg inhalat.powder (Trelegy Ellipta) Physical Exam Vital Signs: Vital Signs: Last Vital Signs Temp 97.7 F 05/10/25 16:00 Pulse 69 05/10/25 16:00 Resp 18 05/10/25 16:00 BP 117/72 05/10/25 16:00 Pulse Ox 97 05/10/25 16:00 O2 Del Method Room Air 05/10/25 16:00 BMI result Body Mass Index 24.2 Const: General: comfortable Nutritional Appearance: thin Limitations: no limitations HEENT: Head: Yes normal to inspection, Yes normocephalic and Yes atraumatic Eyes: General: appearance normal, both eyes and all related structures Eyelids: Yes eyelids normal Sclerae: sclerae normal EOM: EOMs intact bilaterally Neck: Neck: Yes normal visual inspection and Yes no lymphadenopathy Lymphatic: no lymphadenopathy noted Chest: Chest palpation & inspection: normal inspection of the chest Resp: Effort & Inspection: normal respiratory effort Auscultation: breath sounds absent and diminished lung sounds Cardio: Jugular venous distension: no JVD Rate: regular rate Rhythm: regular rhythm GI: Palpation (GI): Soft to palpation Skin: Other: warm, dry General skin exam: no rashes or lesions noted Neuro: Cranial nerves: Yes Normal hearing present Cognition (Neuro): normal cognition Gait exam (Neuro): Normal gait present Extrem: General: Yes normal to inspection, Yes capillary refill normal, Yes no clubbing, cyanosis or edema and Yes no pedal edema Psych: Appearance: grossly normal and well kempt Speech and movement: Normal speech and movement present and Clear speech present Affect: normal affect Attitude: cooperative Thought process: Normal thought process present Thought content: Normal thought content present Insight: Good insight present (Psych) Judgement: Good judgement present (Psych) Results Laboratory Findings 05/10/25 06:18 05/10/25 06:18 Abnormal lab findings: Abnormal Labs 05/09/25 05/09/25 05/10/25 12:50 20:12 06:18 WBC 3.6 L 4.2 L RBC 3.66 L 3.44 L Hgb 9.9 L 9.4 L Hct 30.6 L 28.7 L RDW 18.0 H 18.2 H Plt Count 139 L 127 L MPV 8.7 L 9.1 L Immature Gran % (Auto) 0.5 H Neut % (Auto) 87.9 H 79.4 H Lymph % (Auto) 10.4 L 17.0 L [place] % (Auto) 1.4 L Lymph # (Auto) 0.4 L 0.7 L BUN 8 L Total Protein 8.1 H Albumin 3.2 L Ur Specific [place] >= 1.030 H Microbiology: Microbiology 05/09/25 12:50 Blood - Venous Blood Culture - Preliminary No growth after 24 hours. 05/09/25 12:50 Blood - Venous Blood Culture - Preliminary No growth after 24 hours. Assessment and Plan (1) COPD (chronic obstructive pulmonary disease): Qualifiers: COPD type: chronic bronchitis Chronic bronchitis type: simple Qualified Code(s): J41.0 - Simple chronic bronchitis Status: Acute (2) Atelectasis of left lung: Status: Acute (3) Mass of upper lobe of left lung: Status: Acute (4) Lung cancer: Qualifiers: Laterality: left Lung location: unspecified part of lung Qualified Code(s): C34.92 - Malignant neoplasm of unspecified part of left bronchus or lung Status: Inactive stage 3 Squamous cell CA Plan ISS/CPT flutter valve CT chest with IV contrast Keep NPO incase of bronchoscopy. ?Interventional Pulmonary consultation Procedures Date of Service Date of Service: 05/10/25
--- NOTE | 2025-05-10 20:01 | PM.EVENT ---
Event Note Date of Service: 05/10/25 Event Note: GI Consult-Full note dictated--history from patient, her daughter Aniyah who is her HCP who was on speaker phone, and the EMR Imp: 60 yo female in the midst of chemo for squamous cell lung cancer presenting with some new constipation and an episode of hematochezia today while straining with a BM. She is also on aspirin and Eliquis. She has had no bleeding since arrival to the hospital. She describes a negative colonoscopy > [address] shows constipation and some rectal inflammation, but no mass or obstruction. Diff dx: Perianal source of bleeding--hemorrhoid or rectal inflammation from the constipation; doubt mass or polyp Rec: Bowel regimen with a suppository and some Miralax, and then maintain a bowel regimen at home. I don't think she requires a colonoscopy at this time, particularly in light of her clinical situation. Her diet can be advanced as tolerated. Please call if I can be of any further assistance while she is here in the hospital. D/W patient and her daughter in detail. They are comfortable with this plan.Thanks Time Spent With Patient Time: Total time managing care of this patient today ____ minutes.
--- NOTE | 2025-05-10 23:41 | CONS_ITS ---
DATE OF SERVICE: 05/10/2025 REASON FOR CONSULTATION: Rectal bleeding and abnormal CT scan of GI tract. HISTORY OF PRESENT ILLNESS: This has been obtained from the patient and her daughter, Aniyah, who is the healthcare proxy, as well as from her nurse, and the medical record. The patient is a 60-year-old female, in the midst of chemotherapy for squamous cell lung carcinoma. She has been a little bit more constipated lately and today while straining for a bowel movement noticed the onset of hematochezia with bright red blood in the toilet bowl. She denies any associated rectal or abdominal pain. There was no melena. There was no vomiting. Due to this episode, she came to the ER. Since arrival in the ER and up on the medical floor, she has had no further signs of bleeding. Of note, she is on aspirin and Eliquis for a retinal artery occlusion and a DVT. She describes a colonoscopy, but that was over 5 years ago. She thinks it was negative and was told recently that she is due for another one from a screening standpoint, but has not had that. She does not use any other NSAIDs or blood thinners. She has not been on any other particular blood thinners. She denies any known family history of colorectal cancer. MEDICATIONS: Her current medications in the hospital include Eliquis, aspirin, atorvastatin, Tums, IV ceftriaxone, dexamethasone, Dilaudid p.r.n., hydroxychloroquine, melatonin, metronidazole, Zofran p.r.n., MiraLAX p.r.n., and Senokot. PAST MEDICAL HISTORY: Squamous cell carcinoma of the lungs being treated with chemotherapy as per Dr. Patel. She has lupus. Hyperlipidemia. She denies any history of VA, diabetes, or stroke. She has had tubal ligation. SOCIAL HISTORY: She does not use any significant amounts of alcohol. She has been a smoker. REVIEW OF SYSTEMS: CONSTITUTIONAL: She has been feeling fatigued and somewhat anorectic at home. CARDIAC: No chest pain. PULMONARY: No coughing, nor hemoptysis. GI: As above. She denies any dysphagia, nor significant heartburn. She has not noticed any jaundice. URINARY: No dysuria, no hematuria. NEUROLOGIC: No headache or seizures. PHYSICAL EXAMINATION: GENERAL: The patient is a pleasant alert female. HEENT: She has alopecia. Anicteric sclerae. CARDIAC: Normal S1, S2. ABDOMEN: Soft, nondistended, nontender without palpable mass. LABORATORY DATA: Hemoglobin on May 08 was 9.8 compared to 11.1 on April 24. Hemoglobin yesterday was 9.9. Hemoglobin today was 9.4. Platelets 127,000. White blood cell count 4.2 today. PT was 13.1 with a normal INR in April. Normal electrolytes, BUN and creatinine. Normal LFTs. She had a CT scan of the abdomen describing large rectal stool burden with some mild rectal wall thickening consistent with inflammation. There was no obvious mass nor bowel obstruction. IMPRESSION: Given the patient's clinical history, this certainly seems consistent with a perianal source of bleeding such as either a hemorrhoid or some rectal inflammation from the associated constipation. Given the clinical history, I do not think this represents any type of colonic or rectal mass. Given the clinical situation as she is in the midst of chemotherapy, I would recommend holding off on colonoscopy at this time and observing things. I shall give her a trial of a Dulcolax suppository as well as increasing her MiraLAX tonight. I advised her that it will be important that she maintain a good bowel regimen at home, so as to avoid constipation going forward. Again, at this point, I do not think colonoscopy required, but certainly if she continues to have problems with bleeding and/or suspicion of a colonic process arises, we could always reassess that. However, at this point, I would hold off on that. Her diet can be advanced as tolerated. She can continue her aspirin and Eliquis, but obviously if she has significant bleeding, those would need to be held. This has all been discussed in detail with the patient and her daughter. They are both comfortable with this plan. MD GAY Yee/DIANELYS / [phone]
[2025-05-11] VITALS (7 sets, daily range): BP systolic 115–124; BP diastolic 56–77; PULSE 65–88; RESP 14–18; TEMP 36.1–37.2; O2SAT 92–97
[2025-05-11] MEDS: metroNIDAZOLE/NS 500 MG/100 ML PIGGYBACK 100 MG IV ×3 (05:37→20:56)
[2025-05-11] MEDS: Morphine Sulfate Immed Release 15 MG TABLET PO ×2 (05:46→18:06)
--- NOTE | 2025-05-11 06:03 | P.EN_ITS ---
Chart reviewed, full consult to follow. Pt with metastatic SCC of lung, on palliative chemotherapy (cycle 2). Course complicated by BRAO recently, prior h/o DVT, started recently on eliquis, on [facility] baby ASA, admitted for rectal/perianal bleeding. Found to have further worsening of left lung consolidation. Appreciate GI and pulmonary input. Hold eliquis for now. Full consult to follow.
--- NOTE | 2025-05-11 07:25 | HO.PM.IMPN ---
Subjective Subjective Date of Service: 05/11/25 Interval History: Per pulm-no bronch as the patient is not hypoxic on room air Awaiting GI and Heme-Onc input Resume diet Review of Systems Review of Systems: Yes all other systems are reviewed and are negative Physical Exam Exam: Exam: General: AOx3, nontoxic-appearing, chronically ill-appearing Resp: Left lung diminished throughout, otherwise CTA CVS: S1, S2, RRR GI: +BS, NT, no distention Neuro: Cranial nerves II-XII grossly intact bilaterally. Motor grossly intact bilaterally Psych: Appropriate affect Vital Signs: Vital Signs: Last Vital Signs Temp 97.1 F 05/11/25 03:17 Pulse 65 05/11/25 03:17 Resp 18 05/11/25 03:17 BP 124/62 05/11/25 03:17 Pulse Ox 95 05/11/25 03:17 O2 Del Method Room Air 05/11/25 03:17 BMI result Body Mass Index 24.2 Objective Data Active Medications Acetaminophen (Acetaminophen 325 Mg Tablet) 650 mg PO Q6H PRN PRN Reason: Pain, Mild 1-3,fever,headache Albuterol/Ipratropium (Albuterol/Iprat 2.5/0.5mg 3 Ml Ampul.Neb) 3 ml INHALE Q4H PRN PRN Reason: Shortness of Breath/Wheezing Apixaban (Apixaban 5 Mg Tablet) 5 mg PO BID [facility] On Hold: 05/10/25 11:11 Last Admin: 05/10/25 08:46 Dose: 5 mg Documented By: ANTONIO Aspirin (Aspirin Enteric Coated 81 Mg Tablet.) 81 mg PO DAILY [facility] Last Admin: 05/10/25 10:28 Dose: 81 mg Documented By: ORVILLE Atorvastatin Calcium (Atorvastatin Calcium 40 Mg Tablet) 40 mg PO BEDTIME [facility] Last Admin: 05/10/25 21:02 Dose: 40 mg Documented By: TRINIDAD Benzonatate (Benzonatate 100 Mg Capsule) 100 mg PO TID PRN PRN Reason: Cough Calcium Carbonate (Calcium Carbonate 750 Mg Tab.Chew) 750 mg PO Q4H PRN PRN Reason: Heartburn Dexamethasone (Dexamethasone 4 Mg Tablet) 4 mg PO BID [facility] Last Admin: 05/10/25 21:06 Dose: 4 mg Documented By: TRINIDAD Fluticasone/Umeclidinium/Vilanterol (Fluticasone/Umeclidinium/Vilanterol 200/62.5/25 Blst.W.Dev) 1 puff INHALE DAILY [facility] Last Admin: 05/10/25 11:19 Dose: Not Given Documented By: SUBHA Non-Admin Reason: med unavailable pharm called Folic Acid (Folic Acid 1 Mg Tablet) 1 mg PO DAILY [facility] Last Admin: 05/10/25 10:28 Dose: 1 mg Documented By: ORVILLE Hydromorphone HCl (Hydromorphone Hcl 0.5 Mg/0.5 Ml Syringe) 0.5 mg IVPUSH Q3H PRN; Protocol PRN Reason: Breakthrough Pain Last Admin: 05/10/25 21:10 Dose: 0.5 mg Documented By: TRINIDAD Hydroxychloroquine Sulfate (Hydroxychloroquine Sulfate 200 Mg Tablet) 400 mg PO DAILY [facility] Last Admin: 05/10/25 10:29 Dose: 400 mg Documented By: ORVILLE Lactated Ringer's (Lr) 1,000 mls @ 100 mls/hr IVCONT .Q10H [facility] Last Infusion: 05/11/25 06:39 Dose: 100 mls/hr Documented By: BELINDA Metronidazole (Flagyl) 500 mg in 100 mls @ 100 mls/hr IV Q8H [facility] Last Infusion: 05/11/25 06:39 Dose: Infused Documented By: BELINDA Ceftriaxone Sodium 1 gm/ (Sodium Chloride) 50 mls @ 100 mls/hr IV Q24H [facility] Last Infusion: 05/10/25 22:30 Dose: Infused Documented By: TRINIDAD Magnesium Hydroxide (Milk Of Magnesia 30 Ml Oral.Susp) 30 ml PO DAILY PRN PRN Reason: Constipation Melatonin (Melatonin 3 Mg Tablet) 6 mg PO BEDTIME PRN PRN Reason: Insomnia Last Admin: 05/09/25 22:19 Dose: 6 mg Documented By: HOMER Comments: pt requesting medication to sleep Morphine Sulfate (Morphine Sulfate Immed Release 15 Mg Tablet) 15 mg PO BID PRN PRN Reason: Pain, Moderate(Pain Scale 4-6) Last Admin: 05/11/25 05:46 Dose: 15 mg Documented By: BELINDA Ondansetron HCl (Ondansetron Hcl 4 Mg/2 Ml Vial) 4 mg IVPUSH Q8H PRN PRN Reason: Nausea and Vomiting Last Admin: 05/11/25 05:35 Dose: 4 mg Documented By: BELINDA Polyethylene Glycol (Polyethylene Glycol 3350 17 Gm Powd.Pack) 17 gm PO BID [facility] Last Admin: 05/10/25 21:02 Dose: 17 gm Documented By: TRINIDAD Senna/Docusate Sodium (Sennosides/Docusate Sodium Tablet) 1 tab PO BID [facility] Last Admin: 05/10/25 21:07 Dose: Not Given Documented By: TRINIDAD Non-Admin Reason: Patient Refused Sodium Chloride (0.9 % Sodium Chloride Flush 3 Ml Syringe) 3 ml IVFLUSH QSHIFT [facility] Last Admin: 05/10/25 23:46 Dose: 3 ml Documented By: BELINDA Labs 05/11/25 07:28 05/11/25 07:28 Microbiology Microbiology Results: Microbiology 05/09/25 12:50 Blood Culture - Preliminary Blood - Venous No growth after 24 hours. 05/09/25 12:50 Blood Culture - Preliminary Blood - Venous No growth after 24 hours. Assessment and Plan (1) BRBPR (bright red blood per rectum): Status: Acute (2) Stercoral colitis: Status: Acute Plan 60-year-old female with a past medical history of squamous cell carcinoma of the lung-on chemotherapy last received yesterday, COPD, SLE, DVT, osteopenia, DARIN, tobacco dependence; presented to the hospital with a chief complaint of constipation/blood in the stool. Admitted for following #BRBPR with concerns for stercoral colitis Likely secondary to constipation and bowel injury in the setting of chemotherapy Continue empiric ceftriaxone Flagyl given pancytopenia and recent chemotherapy-may not mount appropriate inflammatory response We will increase Bowel regimen , to prevent constipation GI consulted- likely not a candidate for colonoscopy given recent chemotherapy Resume diet as patient likely not a candidate for bronchoscopy or colonoscopy PPI p.o. Trend H&H; continue hold Eliquis for now #Left lung opacification Pt with hx of squamous cell carcinoma of lung Patient respiratory status currently stable -her baseline Pulmonology consulted, will check CT of chest wo/w contrast repeat CT scan done today similar findings Pulmonology consulted-verbally told the patient is not a candidate for bronchoscopy as the patient is not hypoxic on room air, with similar findings in the past Oncology consult, follows with Dr. Jorge Damon p.r.n. Supplemental oxygen p.r.n. HX DVT Eliquis on hold due to BRBPR DVT prophylaxis: SCD boots for now, we will resume Eliquis if cleared by Heme-Onc Code status: Full code Pt requires continued hospitalization for additional treatment and further workup for both possible colitis , further input from subspecialty services. If patient continues to improve and bright red blood per rectum resolves, can be discharged in 1-2 days. Quality Stroke Does the patient have a stroke diagnosis?: No VTE Prior VTE?: No VTE Risk Level:: Medical - moderate - high VTE Device Contraindication: Treatment Not Indicated VTE Drug Contraindication: N/A - Med Ordered
[2025-05-11 07:55] LABS: Hematocrit 28.7 % (37.0-47.0); Hemoglobin 9.4 g/dl (12.0-16.0); Mean Corpuscular HGB Conc 32.8 g/dl (31.0-35.0); Mean Corpuscular Hemoglobin 27.0 pg (27.0-33.0); Mean Corpuscular Volume 82.5 fL (80.0-98.0); NRBC Abs Auto 0.000 X10*3/uL (0.0-0.012); NRBC Pct Auto 0.0 /100WBC (0.0-0.2); Platelet Count 132 X10*3/uL (160-400); Red Blood Count 3.48 X10*6/uL (4.20-5.50); White Blood Count 3.0 X10*3/uL (4.8-10.8)
[2025-05-11 08:07] LABS: Anion Gap 12 (12-20); Blood Urea Nitrogen 8 mg/dL (9-16); Calcium 8.9 mg/dL (8.4-10.2); Carbon Dioxide 23 mmol/L (22-29); Chloride 104 mmol/L (96-108); Creatinine Clr Calc Pharmacy 95.8; Estimated Glomerular Filt Rate > 60; Potassium 3.5 mmol/L (3.3-5.1); Sodium 135 mmol/L (135-145)
[2025-05-11] MEDS: Fluticasone/Umeclidinium/Vilanterol 200/62.5/25 BLST.W.DEV 1 PUFF INHALE (08:24)
[2025-05-11] MEDS: Aspirin Enteric Coated 81 MG TABLET.DR PO (08:50)
[2025-05-11] MEDS: 0.9 % Sodium Chloride Flush 3 ML SYRINGE IVFLUSH ×3 (08:52→20:50)
[2025-05-11] MEDS: iohexoL 350 MG/ML 100 ML INFUS..BTL IV (10:55)
--- NOTE | 2025-05-11 11:16 | MHC.CM.PN ---
Per ROUNDS, Patient is not yet medically cleared for dc (Pending Pulmonary & Oncology Consults).
[2025-05-12 03:10] VITALS: BP 106/64; PULSE 72; RESP 14; TEMP 36.1; O2SAT 94
[2025-05-12] MEDS: metroNIDAZOLE/NS 500 MG/100 ML PIGGYBACK 100 MG IV (05:04)
[2025-05-12 06:37] LABS: Hematocrit 28.7 % (37.0-47.0); Hemoglobin 9.4 g/dl (12.0-16.0); Imm Gran Abs Auto 0.02 X10*3/uL (0.00-0.03); Imm Gran Pct Auto 0.5 % (0.0-0.4); Lymphocytes Absolute Auto 0.4 X10*3/uL (1.2-4.9); MANUAL DIFF FLAG NO; Mean Corpuscular HGB Conc 32.8 g/dl (31.0-35.0); Mean Corpuscular Hemoglobin 27.4 pg (27.0-33.0); Mean Corpuscular Volume 83.7 fL (80.0-98.0); NRBC Abs Auto 0.000 X10*3/uL (0.0-0.012); NRBC Pct Auto 0.0 /100WBC (0.0-0.2); Platelet Count 126 X10*3/uL (160-400); Red Blood Count 3.43 X10*6/uL (4.20-5.50); White Blood Count 4.2 X10*3/uL (4.8-10.8)
[2025-05-12 06:54] LABS: Alanine Aminotransferase 6 U/L (0-31); Albumin Level 3.3 g/dL (3.5-5.0); Alkaline Phosphatase 83 U/L (39-117); Anion Gap 13 (12-20); Aspartate Amino Transferase 24 U/L (5-31); Blood Urea Nitrogen 8 mg/dL (9-16); Calcium 8.7 mg/dL (8.4-10.2); Carbon Dioxide 23 mmol/L (22-29); Chloride 104 mmol/L (96-108); Creatinine Clr Calc Pharmacy 84.0; Estimated Glomerular Filt Rate > 60; Magnesium 1.7 mg/dL (1.6-2.6); Potassium 3.6 mmol/L (3.3-5.1); Sodium 136 mmol/L (135-145); Total Protein 7.3 g/dL (6.5-8.0)
[2025-05-12 07:37] VITALS: BP 114/70; PULSE 65; RESP 16; TEMP 36.3; O2SAT 97
[2025-05-12] MEDS: Morphine Sulfate Immed Release 15 MG TABLET PO (08:15)
[2025-05-12] MEDS: Aspirin Enteric Coated 81 MG TABLET.DR PO (08:15)
[2025-05-12] MEDS: 0.9 % Sodium Chloride Flush 3 ML SYRINGE IVFLUSH (08:20)
--- NOTE | 2025-05-12 09:04 | PM.HEMONCCN ---
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 She has been receiving chemo immunotherapy and came in to hospital with complain of 1 episode of hematochezia that has since resolved. CT abdomen pelvis showed findings concerning for stercoral colitis. CT chest showed left lung opacification. She was evaluated by Pulmonary who did not feel bronchoscopy was necessary at this time. Eliquis was held from 05/09/2025. 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 She is also on baby aspirin. She has remote history of DVT. At this time she has no acute complaints such as chest pain or worsening shortness of breath. She would like to be discharged home. Review of Systems - Neurologic Reports hearing normal, Denies headache(s) [facility] Medical History: Medical History (Last Reviewed 05/10/25 @ 01:26 by Shyann Mullins RN) Asthma COPD (chronic obstructive pulmonary disease) History of DVT (deep vein thrombosis) Onset Date: ~2014 Hyperplastic colon polyp Long-term use of hydroxychloroquine Nicotine dependence, cigarettes, uncomplicated Obstructive sleep apnea Osteopenia Onset Date: ~2024 Systemic lupus erythematosus Onset Date: ~2006 Family History: Family History (Last Reviewed 04/20/25 @ 22:48 by Brittaney Lofton PA-C) Mother Breast cancer Sister Breast cancer Surgical History: Surgical History (Last Reviewed 05/10/25 @ 01:26 by Shyann Mullins RN) History of colonoscopy Social History: Social History (Last Reviewed 04/20/25 @ 22:48 by Brittaney Lofton PA-C) Living Situation History: Household Members: Significant Other Housing: House Do you presently have visiting nurse or other home services: No Alcohol History Details: 1. How often do you have a drink containing alcohol?: a. Never AUDIT-C Alcohol total score: 0 Currently Displaying Signs/Symptoms of Alcohol Withdrawal: No Tobacco History: Patient Tobacco Use Status: Current everyday Tobacco Tobacco use type: Cigarette Cigarette Packs Per Day: 1 Cigarettes Per Day: 2 Years Smoked: (onset 15yo, 1/2ppd x 44yrs, 22pyh) Patient Interested in Nicotine Replacement: No Second Hand Smoke Exposure: No Substance Use History: Currently Displaying Signs/Symptoms of Drug Intoxication Withdrawal: No Domestic Abuse History: Have you been hit, kicked, punched, or otherwise hurt by someone within the past year? If so, by whom?: No Do you feel safe in your current relationship?: Yes Is there a partner from a previous relationship who is making you feel unsafe now?: No Are you made to feel afraid or neglected: No Advance Directives: Advance Directives: No Advance Directives Information Provided: No Homicidal Assessment: Do you have a plan to hurt others: No Plan Nutrition Assessment: Recently lost weight without trying: Yes How much weight loss: Unsure Eating poorly because of decreased appetite: Yes Nutrition screen score: 5 Nutrition Risks: No Nutritional Risk Patient : No : No Poor oral hygiene: No Occupation Assessmet: service: No Current occupational status: disabled Home Medications and Allergies Current Medications: Current Medications Acetaminophen (Acetaminophen 325 Mg Tablet) 650 mg PO Q6H PRN PRN Reason: Pain, Mild 1-3,fever,headache Albuterol/Ipratropium (Albuterol/Iprat 2.5/0.5mg 3 Ml Ampul.Neb) 3 ml INHALE Q4H PRN PRN Reason: Shortness of Breath/Wheezing Amoxicillin/Clavulanate Potassium (Amoxicillin/Potassium Clav 875 Mg Tablet) 875 mg PO Q12H [facility] Stop: 05/15/25 21:01 Last Admin: 05/12/25 08:23 Dose: 875 mg Apixaban (Apixaban 5 Mg Tablet) 5 mg PO BID [facility] On Hold: 05/10/25 11:11 Last Admin: 05/10/25 08:46 Dose: 5 mg Aspirin (Aspirin Enteric Coated 81 Mg Tablet.) 81 mg PO DAILY [facility] Last Admin: 05/12/25 08:15 Dose: 81 mg Atorvastatin Calcium (Atorvastatin Calcium 40 Mg Tablet) 40 mg PO BEDTIME [facility] Last Admin: 05/11/25 20:46 Dose: 40 mg Benzonatate (Benzonatate 100 Mg Capsule) 100 mg PO TID PRN PRN Reason: Cough Calcium Carbonate (Calcium Carbonate 750 Mg Tab.Chew) 750 mg PO Q4H PRN PRN Reason: Heartburn Last Admin: 05/11/25 15:35 Dose: 750 mg Dexamethasone (Dexamethasone 4 Mg Tablet) 4 mg PO BID [facility] Last Admin: 05/12/25 08:15 Dose: Not Given Fluticasone/Umeclidinium/Vilanterol (Fluticasone/Umeclidinium/Vilanterol 200/62.5/25 Blst.W.Dev) 1 puff INHALE DAILY [facility] Last Admin: 05/11/25 08:24 Dose: 1 puff Folic Acid (Folic Acid 1 Mg Tablet) 1 mg PO DAILY [facility] Last Admin: 05/12/25 08:15 Dose: 1 mg Hydromorphone HCl (Hydromorphone Hcl 0.5 Mg/0.5 Ml Syringe) 0.5 mg IVPUSH Q3H PRN; Protocol PRN Reason: Breakthrough Pain Last Admin: 05/11/25 22:07 Dose: 0.5 mg Hydroxychloroquine Sulfate (Hydroxychloroquine Sulfate 200 Mg Tablet) 400 mg PO DAILY [facility] Last Admin: 05/12/25 08:16 Dose: 400 mg Magnesium Hydroxide (Milk Of Magnesia 30 Ml Oral.Susp) 30 ml PO DAILY PRN PRN Reason: Constipation [facility] ([facility] 400 Mg [facility]t) [facility] Last Admin: 05/12/25 08:16 Dose: 400 mg Melatonin (Melatonin 3 Mg Tablet) 6 mg PO BEDTIME PRN PRN Reason: Insomnia Last Admin: 05/09/25 22:19 Dose: 6 mg Morphine Sulfate (Morphine Sulfate Immed Release 15 Mg Tablet) 15 mg PO BID PRN PRN Reason: Pain, Moderate(Pain Scale 4-6) Last Admin: 05/12/25 08:15 Dose: 15 mg Ondansetron HCl (Ondansetron Hcl 4 Mg/2 Ml Vial) 4 mg IVPUSH Q8H PRN PRN Reason: Nausea and Vomiting Last Admin: 05/11/25 05:35 Dose: 4 mg Polyethylene Glycol (Polyethylene Glycol 3350 17 Gm Powd.Pack) 17 gm PO BID [facility] Last Admin: 05/12/25 08:24 Dose: Not Given Senna/Docusate Sodium (Sennosides/Docusate Sodium Tablet) 1 tab PO BID [facility] Last Admin: 05/12/25 08:24 Dose: Not Given Sodium Chloride (0.9 % Sodium Chloride Flush 3 Ml Syringe) 3 ml IVFLUSH QSHIFT [facility] Last Admin: 05/12/25 08:20 Dose: 3 ml Home Medications ?Medication ?Instructions ?Recorded ?Confirmed ?Type aspirin 81 mg tablet,delayed 81 mg PO DAILY 03/19/20 05/10/25 History release (Adult Low Dose Aspirin) oxycodone-acetaminophen 5 mg-325 1 tab PO Q12H PRN Pain 03/19/20 05/10/25 History mg tablet (Percocet) levalbuterol HCl 1.25 mg/3 mL 1.25 mg inhalation Q4H PRN 09/13/22 05/10/25 History solution for nebulization Respiratory Distress hydroxychloroquine 200 mg tablet 400 mg PO DAILY 04/20/25 05/10/25 History sennosides 8.6 mg-docusate sodium 1 tab-cap PO BID 04/20/25 05/10/25 History 50 mg tablet (Senna with Docusate Sodium) apixaban 5 mg tablet 5 mg PO BID 05/10/25 05/10/25 History fluticasone fur. 200 mcg-umeclid 1 inh inhalation DAILY 05/10/25 05/10/25 History 62.5 mcg-vilant 25 mcg inhalat.powder (Trelegy Ellipta) Allergies Allergy/AdvReac Type Severity Reaction Status Date / Time paclitaxel Allergy Severe Shortness Verified 05/09/25 12:11 of Breath Physical Exam Vital signs: Vital Signs Temp 97.3 F 05/12/25 07:37 Pulse 65 05/12/25 07:37 Resp 16 05/12/25 07:37 BP 114/70 05/12/25 07:37 Pulse Ox 97 05/12/25 07:37 O2 Del Method Room Air 05/12/25 07:37 Intake & Output 05/11/25 05/12/25 05/12/25 18:59 06:59 18:59 Intake Total 425 / 825 400 / 825 Balance 425 / 825 400 / 825 Intake: Intake, Oral Amount 240 / 390 150 / 390 Intake, IV Amount 185 / 435 250 / 435 cefTRIAXone sodium 1 gm In 0.9 50 / 50 % Sodium Chloride 50 ml @ 100 mls/hr IV Q24H [facility] Rx#: [id number] metroNIDAZOLE/NS 500 mg In 100 100 / 300 200 / 300 ml @ 100 mls/hr IV Q8H [facility] Rx#: [id number] Lactated Ringers 1,000 ml @ 100 85 / 85 mls/hr IVCONT .Q10H [facility] Rx#: [id number] Other: Number of Unmeasured Voids 2 Urine Bathroom Last Bowel Movement 05/11/25 05/12/25 Weight 60 kg - Constitutional Present: no acute distress - Routine Neck Exam Present: supple - Routine Respiratory Exam Present: CTAB Hem/Onc Consult Result - Labs CBC & Chem 7: 05/12/25 05:38 05/12/25 05:38 Labs: Short CBC 05/12/25 Range/Units 05:38 WBC 4.2 L (4.8-10.8) X10*3/uL Hgb 9.4 L (12.0-16.0) g/dl Hct 28.7 L (37.0-47.0) % Plt Count 126 L (160-400) X10*3/uL BMP 05/12/25 05:38 Sodium 136 Potassium 3.6 Chloride 104 Carbon Dioxide 23 BUN 8 L Creatinine 0.57 Calcium 8.7 Liver Function 05/12/25 Range/Units 05:38 Total Bilirubin 0.7 (0.0-1.0) mg/dL AST 24 (5-31) U/L ALT 6 (0-31) U/L Alkaline Phosphatase 83 (39-117) U/L Albumin 3.3 L (3.5-5.0) g/dL Assessment and Plan Patient Active problem list reviewed?: Yes (1) Squamous cell carcinoma of left lung Status: Acute Assessment and plan: 1. This is a 60-year-old woman, chronic smoker who has been diagnosed with squamous cell carcinoma of left lung. Screening CT chest that was performed 01/25/2024 revealed masslike consolidation in the left upper lobe measuring 4.2 x 5.3 x 4.8 cm. Mildly enlarged left axillary and few mediastinal and left hilar lymph nodes. She received 1st cycle chemo-immune therapy on 03/19/2025. 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 Dr. Padilla has evaluated her, since her rectal bleeding was very transient and resolved completely, colonoscopy was not recommended. Found to have further worsening of left lung consolidation. CT abdomen pelvis showed findings concerning for stercoral colitis. CT chest showed left lung opacification. She has baseline shortness of breath and reports no acute worsening. She is not hypoxic. Pulmonary consultation was done, bronchoscopy was not recommended. She can be discharged home today, continue to hold Eliquis. She was advised to follow up with oncology this week upon discharge. Thank you for the consultation. - Time Spent With Patient Time Spent with Patient (in minutes): 15 Additional Coding: - Additional E/M codes Complex E/M visit Add On: CPT G2211
--- NOTE | 2025-05-12 10:49 | P.DS_ITS ---
DS: Providers Provider Date of Service: 05/12/25 Date of admission: 05/09/25 21:05 Date of discharge: 05/12/25 Primary care physician: Marjan Sams MD Consults: 05/09/25 21:07 Consult to Gastroenterology Routine Consulting Provider: Alek Padilla Reason for consultation: GI bleed; ?hemmorhoidal bleed; stercoral colitis Consult to Pulmonology Routine Consulting Provider: [facility] Pulmonology Services Reason for consultation: abnormal ct chest 05/10/25 07:55 Consult to Hematology / Oncology Routine Consulting Provider: [facility] Oncology/Hematology Reason for consultation: Worsening lung cancer, on chemo, follows with Dr. Patel DS: Diagnosis Discharge Diagnosis (1) Squamous cell carcinoma of left lung: Status: Acute DS: Summary Hospital Course Hospital Course: Per H&P: Chief Complaint: BRBPR 60-year-old female with a past medical history of squamous cell carcinoma of the lung-on chemotherapy last received yesterday, COPD, SLE, DVT, osteopenia, DARIN, tobacco dependence; presented to the hospital with a chief complaint of constipation/blood in the stool. Patient reports that she found constipated; she went to the bathroom today she had noticed blood in the stool-small in quantity. Denies similar episodes in the past. Mentions she has been on chemotherapy for her lung cancer last received yesterday. Denies any cough Denies any shortness of breath Denies any chest pain or palpitations. Denies any urinary symptoms. Review of all other systems is negative except mentioned above ER course: Per ER team, patient noted to have hemorrhoids; H&H stable; CT abdomen pelvis showed findings concerning for stercoral colitis. CT chest showed left lung opacification. Discharge Diagnosis #Rectal bleeding, likely secondary to constipation/stercoral colitis (self- limited) #Squamous cell carcinoma of the left lung (on chemotherapy) #History of DVT (on Eliquis, currently held) #Branch retinal artery occlusion (on aspirin) #Systemic lupus erythematosus (SLE) #COPD #Osteopenia #Obstructive sleep apnea (DARIN) #Tobacco dependence #Hyperlipidemia Hospital Course: The patient is a 60-year-old woman with a history of left upper lobe squamous cell lung carcinoma (on chemotherapy), SLE, COPD, DVT, and other comorbidities. She presented with new-onset bright red rectal bleeding after straining with constipation. She had no abdominal pain, melena, or vomiting. The bleeding was self-limited and did not recur during her hospital stay. CT abdomen/pelvis showed a large rectal stool burden and mild rectal wall thickening, consistent with stercoral colitis. No mass or obstruction was seen. Colonoscopy was deferred due to the transient nature of bleeding and ongoing chemotherapy. Her anticoagulation (Eliquis) was held due to bleeding risk; aspirin was continued. She was also found to have worsening left lung collapse on imaging, attributed to progression of her known malignancy. She remained stable without hypoxia or acute respiratory distress. Pulmonary and oncology teams were consulted; no acute interventions were required. Her bowel regimen was optimized, and she was monitored for further bleeding, which did not occur. She is stable for discharge. Discharge Medications Aspirin: Continue as before Eliquis: Hold for now (reassess with oncology/hematology) MiraLAX: As needed for constipation Dulcolax suppository: As needed for constipation Other home medications: Continue as previously prescribed Time spent discussing smoking cessation with patient: more than 10 minutes Status at Discharge Functional status at discharge: independent ambulation Overall status at discharge: patient is back to baseline Time Attestation Discharge Coordination Time (in mins): 65 Quality: Safe Use of Opioids Does Pt have an Active Cancer Diagnosis on the Problem List?: Yes Opioid Measure Date for [facility] Report: 04/12/25 Opioid Measure Time for [facility] Report: 11:01 Quality: Stroke Does the patient have a stroke diagnosis?: No Physical Exam Exam: Exam: General: AOx3, nontoxic-appearing, chronically ill-appearing Resp: Left lung diminished throughout, otherwise CTA CVS: S1, S2, RRR GI: +BS, NT, no distention Neuro: Motor grossly intact bilaterally Psych: Appropriate affect Vital Signs: Vital Signs: Last Vital Signs Temp 97.3 F 05/12/25 07:37 Pulse 65 05/12/25 07:37 Resp 16 05/12/25 07:37 BP 114/70 05/12/25 07:37 Pulse Ox 97 05/12/25 07:37 O2 Del Method Room Air 05/12/25 07:37 BMI result Body Mass Index 24.2 DS: Data Data Completed and Pending Labs on day of discharge: Laboratory Results - last 24 hr 05/12/25 05:38 WBC 4.2 L RBC 3.43 L Hgb 9.4 L Hct 28.7 L MCV 83.7 MCH 27.4 MCHC 32.8 RDW 17.7 H Plt Count 126 L MPV 9.6 Immature Gran % (Auto) 0.5 H Neut % (Auto) 87.9 H Lymph % (Auto) 9.7 L Real % (Auto) 1.9 L Eos % (Auto) 0.0 Baso % (Auto) 0.0 Lymph # (Auto) 0.4 L Real # (Auto) 0.1 Eos # (Auto) 0.0 Baso # (Auto) 0.0 Abs Immat Gran (auto) 0.02 Absolute Neuts (auto) 3.7 Absolute Nucleated RBC 0.000 Nucleated RBC % (auto) 0.0 Sodium 136 Potassium 3.6 Chloride 104 Carbon Dioxide 23 Anion Gap 13 BUN 8 L Creatinine 0.57 Estim Creat Clear Calc 84.0 Estimated GFR > 60 Random Glucose 91 Calcium 8.7 Magnesium 1.7 Total Bilirubin 0.7 AST 24 ALT 6 Alkaline Phosphatase 83 Total Protein 7.3 Albumin 3.3 L Preliminary micro results at discharge 05/09/25 12:50 Blood Culture - Preliminary Blood - Venous No growth after 48 hours. 05/09/25 12:50 Blood Culture - Preliminary Blood - Venous No growth after 48 hours. Discharge Plan Discharge Anticipated Discharge Date/Time: 05/12/25 10:45 Patient Disposition: Home, Self-Care Discharge Diagnosis: Bright red blood per rectum likely due to severe constipation Referrals: Marjan Sams MD [Primary Care Provider, [facility]] - 1 Week Sonja Patel MD [Physician, Hematology & Oncology] - 1 Week Rk Cui MD [Physician, Pulmonology] - 1 Week Alek Padilla MD [Physician, Gastroenterology] - 1 Week Discharge Medications: New amoxicillin-pot clavulanate 875-125 mg Tablet 1 tab PO Q12H 5 Days Qty: 10 0RF Continued albuterol sulfate 90 mcg/actuation HFA aerosol inhaler 1 inh inhalation QID PRN (Reason: shortness of breath or wheezing) Qty: 8.5 0RF Trelegy Ellipta 200-62.5-25 mcg Blister With Device 1 inh INHALATION DAILY levalbuterol HCl 1.25 mg/3 mL Solution For Nebulization 1.25 mg INHALATION Q4H PRN (Reason: Respiratory Distress) dexamethasone 4 mg Tablet 4 mg PO BID Qty: 20 0RF Rx Instructions: Take for 2 days after chemotherapy ondansetron 8 mg Tablet,Disintegrating 8 mg PO Q8H PRN (Reason: nausea and vomiting ) Qty: 30 3RF polyethylene glycol 3350 [Miralax] 17 gram Powder In Packet 17 g PO DAILY PRN (Reason: constipation ) Qty: 30 1RF folic acid 1 mg Tablet 1 mg PO DAILY Qty: 90 3RF morphine 15 mg tablet 15 mg PO BID PRN (Reason: pain) Qty: 7 0RF Rx Instructions: Partial Fill upon patient request. sennosides-docusate sodium [Senna with Docusate Sodium] 8.6-50 mg tablet 1 tab-cap PO BID hydroxychloroquine 200 mg tablet 400 mg PO DAILY atorvastatin [Lipitor] 40 mg tablet 40 mg PO BEDTIME Qty: 90 0RF Rx Instructions: Take one tablet at night for high cholesterol oxycodone-acetaminophen [Percocet] 5-325 mg tablet 1 tab PO Q12H PRN (Reason: Pain) aspirin [Adult Low Dose Aspirin] 81 mg tablet,delayed release (DR/EC) 81 mg PO DAILY Held apixaban 5 mg Tablet 5 mg PO BID Hold Instructions: Resume on 05/15/25. Please resume only after being cleared by a joint cleaning machine operator oncologist Dr. Patel in outpatient settings after your appointment with her. Thank you Discharge Orders: Discharge Order (Routine); Ordered 05/12/25 Ordered By: Pilar Lopez Diet: Low salt diet Activity on Discharge: As tolerated Stand Alone Forms: Patient Portal Discharge page Print Language: Greek Activity Restrictions/Additional Instructions: Discharge Instructions: Maintain a regular bowel regimen to prevent constipation (daily MiraLAX, high- fiber diet, adequate fluids) Monitor for any recurrent rectal bleeding, black/tarry stools, or abdominal pain?return to the ER if these occur Continue to hold Eliquis until cleared by your oncology or hematology physician this week Continue all other home medications as directed No restrictions on activity unless otherwise instructed Follow up with oncology this week as scheduled Follow up with your primary care provider and other specialists as needed Care Plan Goals: See above Health Concerns: See above Plan of Treatment: See above Assessment: See above
--- NOTE | 2025-05-12 11:05 | MHC.CM.PN ---
pt dcd home self care
[2025-05-12 11:36] VITALS: BP 107/67; PULSE 81; RESP 16; TEMP 36.9; O2SAT 95
[2025-05-12 11:44] VITALS: PULSE 81; RESP 17; O2SAT 95
[2025-05-12] MEDS: Fluticasone/Umeclidinium/Vilanterol 200/62.5/25 BLST.W.DEV 1 PUFF INHALE (11:44)
[2025-05-12] MEDS: Heparin Sodium,Porcine Flush 500 UNIT/5 ML SYRINGE IVFLUSH (12:54)
--- NOTE | 2025-05-12 12:55 | PC.NURSE ---
Port removed for DC per [facility] standards, pt tolerated well. Dressing applied.
--- NOTE | 2025-05-12 12:58 | PC.NURSE ---
Port de-accessed per [facility] policies and procedures for discharge, pt tolerated well.
== END 2025-05-12 13:16 | disposition home or self-care (01) | DRG 392 ==
LOC: HO.ED 20:10 → HO.EDOVER 21:22 → HO.IMC 22:38 → HO.S3 05-11 17:21
PROVIDERS: Registered Nurse Emergency; Student in an Organized Health Care Education/Training Program; Admitting Provider Hospitalist; Emergency Provider Emergency Medicine; PCP Family Medicine; Visit Provider Student in an Organized Health Care Education/Training Program
DX: K52.89 Other specified noninfective gastroenteritis and colitis (principal); C34.12 Malignant neoplasm of upper lobe, left bronchus or lung; K62.5 Hemorrhage of anus and rectum; H34.231 Retinal artery branch occlusion, right eye; D61.818 Other pancytopenia; M32.9 Systemic lupus erythematosus, unspecified; K59.00 Constipation, unspecified; G47.33 Obstructive sleep apnea (adult) (pediatric); E78.5 Hyperlipidemia, unspecified; J44.9 Chronic obstructive pulmonary disease, unspecified; F17.210 Nicotine dependence, cigarettes, uncomplicated; M85.80 Other specified disorders of bone density and structure, unspecified site; Z71.6 Tobacco abuse counseling; Z20.822 Contact with and (suspected) exposure to COVID-19; Z86.718 Personal history of other venous thrombosis and embolism; Z79.01 Long term (current) use of anticoagulants; Z79.82 Long term (current) use of aspirin; Z79.899 Other long term (current) drug therapy
CPT/HCPCS: 36415; 71046; 71270; 74177; 80048; 80053; 81003; 83605; 83735; 84484; 85025; 85027; 87040; 87637; 93005; 94640; 99285; J0696; J1171; J1308; J1642; J1650; J1836; J2405; J3010; J7120; J8540; Q9967

== ENCOUNTER → 2025-05-09 12:35 | Outpatient (BNV) | payer MEDICARE, MEDICAID, SELFPAY | PROVIDERS: Admitting Provider Hospitalist; Emergency Provider Emergency Medicine; PCP Family Medicine; Visit Provider Internal Medicine | DX: R94.31 Abnormal electrocardiogram [ECG] [EKG] (principal); R06.00 Dyspnea, unspecified | CPT/HCPCS: 93010 ==

== ENCOUNTER → 2025-05-09 13:00 | Outpatient (BNV) | payer MEDICARE, MEDICAID, SELFPAY | PROVIDERS: Emergency Provider Emergency Medicine; PCP Family Medicine; Visit Provider Student in an Organized Health Care Education/Training Program | DX: C34.92 Malignant neoplasm of unspecified part of left bronchus or lung (principal); K57.30 Diverticulosis of large intestine without perforation or abscess without bleeding; K62.89 Other specified diseases of anus and rectum; J98.59 Other diseases of mediastinum, not elsewhere classified; R91.8 Other nonspecific abnormal finding of lung field | CPT/HCPCS: 71046; 74177 ==

== ENCOUNTER 2025-05-09 21:05 | Outpatient (BNV) | payer MEDICARE, MEDICAID, SELFPAY | END 2025-05-11 10:38 | PROVIDERS: Admitting Provider Hospitalist; Emergency Provider Emergency Medicine; PCP Family Medicine; Visit Provider Radiology Diagnostic Radiology | DX: J98.09 Other diseases of bronchus, not elsewhere classified (principal); R91.8 Other nonspecific abnormal finding of lung field; J90 Pleural effusion, not elsewhere classified | CPT/HCPCS: 71270 ==

== ENCOUNTER → 2025-05-09 21:05 | Outpatient (BNV) | payer MEDICARE, MEDICAID, SELFPAY | PROVIDERS: Admitting Provider Hospitalist; Emergency Provider Emergency Medicine; PCP Family Medicine; Visit Provider Hospitalist | DX: J41.0 Simple chronic bronchitis (principal); J98.11 Atelectasis; R91.8 Other nonspecific abnormal finding of lung field; C34.92 Malignant neoplasm of unspecified part of left bronchus or lung | CPT/HCPCS: 99223 ==

== ENCOUNTER → 2025-05-09 21:05 | Outpatient (BNV) | payer MEDICARE, MEDICAID, SELFPAY | PROVIDERS: Admitting Provider Hospitalist; Emergency Provider Emergency Medicine; PCP Family Medicine; Visit Provider Student in an Organized Health Care Education/Training Program | DX: K62.5 Hemorrhage of anus and rectum (principal); K52.89 Other specified noninfective gastroenteritis and colitis | CPT/HCPCS: 99233 ==

== ENCOUNTER → 2025-05-09 21:05 | Outpatient (BNV) | payer MEDICARE, MEDICAID, SELFPAY | PROVIDERS: Admitting Provider Hospitalist; Emergency Provider Emergency Medicine; PCP Family Medicine; Visit Provider Internal Medicine | DX: C34.12 Malignant neoplasm of upper lobe, left bronchus or lung (principal); R59.0 Localized enlarged lymph nodes | CPT/HCPCS: 99222 ==

== ENCOUNTER 2025-05-27 09:39 | Inpatient (IN) | payer MEDICARE, MEDICAID, SELFPAY ==
[2025-05-27] VITALS (11 sets, daily range): BP systolic 115–133; BP diastolic 60–77; PULSE 113–153; RESP 15–35; TEMP 36.9; O2SAT 93–100; BMI 20.2
--- NOTE | ~2025-05-27 | CT_ITS ---
EXAMINATION: CT CHEST ANGIOGRAPHY WITH IV CONTRAST INDICATION: respiratory distress, lung CA, R/O PE COMPARISON: Comparison is made with the prior examination dated 05/11/2025. TECHNIQUE: Helical CT scan of the chest was performed following administration of intravenous contrast (65 mL Omnipaque 350). The contrast bolus was timed to optimally opacify the pulmonary arteries. Thin sections were obtained through the pulmonary arteries. Coronal and sagittal reformatted images were generated. 3D/MIP reconstructed images are also obtained and reviewed. This CT exam was performed with one or more of the following dose reduction techniques: automated exposure control, adjustment of the mA and/or kV according to patient size, use of iterative reconstruction technique. DLP: 300 mGy-cm CHEST: THYROID: The thyroid gland is unremarkable. PULMONARY ARTERIES: No intraluminal filling defects are identified within the pulmonary arteries to suggest pulmonary emboli. There is dilatation of the main pulmonary artery, consistent with pulmonary arterial hypertension. LUNGS: Again seen is occlusion of the left lower lobe bronchus with near complete atelectasis of the left lower lobe and elevation of the left hemidiaphragm. There is improved aeration of the left upper lobe since the prior study. There is a spiculated masslike density in the left upper lobe which is difficult to accurately measure due to adjacent atelectasis of the left lower lobe. The lesion measures at least 3.4 x 2.2 cm. The mass extends from the hilum to the pleural surface. MEDIASTINUM: Precarinal lymph nodes measure up to 1.2 cm in diameter. RUPA: There is no right hilar lymphadenopathy. CARDIOVASCULATURE: The heart is enlarged. A right-sided port is seen in place. There is no pericardial effusion. The thoracic aorta is normal in caliber. There is chronic occlusion of the left subclavian artery. DEGREE OF CORONARY CALCIFICATION: not evaluable, due to dense contrast in the coronary arteries. PLEURA: There is no pleural effusion. No pneumothorax. MAIN AIRWAYS: The trachea and right main bronchi are patent. The left main bronchus is occluded. AXILLA: There is no axillary lymphadenopathy. UPPER ABDOMEN: The visualized portions of the liver, spleen, and adrenals are unremarkable. BONES AND SOFT TISSUES: Unremarkable. CT/CT angio chest PE protocol IMPRESSION: 1. No evidence of pulmonary emboli. 2. Occlusion of the left mainstem bronchus with near complete atelectasis of the left lower lobe. Spiculated soft tissue mass extending from the left hilum to the pleural surface, compatible with neoplasm. 3. Cardiomegaly and pulmonary arterial hypertension. 4. 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 Electronically signed by: Alek Camejo MD 05/27/2025 11:57 AM EST
--- NOTE | ~2025-05-27 | XR_ITS ---
EXAMINATION: XR CHEST CLINICAL INFORMATION: sob COMPARISON: Chest radiograph on May 09, 2025. Chest CT on May 11, 2025. TECHNIQUE: Frontal view of the chest was obtained. FINDINGS: Devices/Tubes/Lines: Right chest Port-A-Cath in place Lungs: Persistent atelectasis of the left lower lobe results in overall volume loss of the left lung. Interval improvement of the aeration of the left upper lobe, with residual faint opacity. Minimal subsegmental atelectasis of the right lung base. Pleura: No pneumothorax. Possibly small left pleural effusion. Heart/Mediastinum: Redemonstration of deviation of the cardiomediastinal silhouette to the left side. Bones: No acute findings. XR/XR chest 1V IMPRESSION: 1. Interval improvement of the aeration of the left upper lobe 2. Persistent atelectasis of the left lower lobe. Electronically signed by: Ky Leija MD 05/27/2025 10:57 AM [facility]
--- NOTE | 2025-05-27 09:50 | ECG_ITS ---
Test Reason : tachy Blood Pressure : */* mmHG Vent. Rate : 141 BPM Atrial Rate : 141 BPM P-R Int : 136 ms QRS Dur : 86 ms QT Int : 276 ms P-R-T Axes : 54 -3 72 degrees QTcB Int : 422 ms Sinus tachycardia Nonspecific T wave abnormality Abnormal ECG When compared with ECG of 09-May-2025 12:46, Vent. rate has increased by 58 bpm Non-specific change in ST segment in Anterior leads Nonspecific T wave abnormality no longer evident in Anterior leads Referred By: Jordana Green Electronically Signed By: JOSE ABERNATHY MD
--- NOTE | 2025-05-27 09:52 | PC.RT ---
Pt came in via EMS for SOB. Pt took breathing txs x4 at home before EMS arrival, HR elevated. SATs 97% on4L NC, RR 22, HR 150, ETCO2 17. Pt receives chemo for lung CA. L/S diminished bilateral. Will continue to monitor.
[2025-05-27] MEDS: Magnesium Sulfate/H2O 2 GM/50 ML PIGGYBACK IV (10:10)
[2025-05-27 10:22] LABS: MANUAL DIFF FLAG NO
[2025-05-27 10:26] LABS: Venous Blood Gas Refer to POC result
[2025-05-27 10:27] LABS: VBG HCO3 17 mmol/L (22-26); VBG O2 % Saturation 83.0 %
--- NOTE | 2025-05-27 10:28 | PC.NURSE ---
Norris from home for increased sob since approx 0400am. Per pt- has been using her home nebulizer treatment x4 with no relief. Hx lung CA/COPD/Asthma Upon arrival- increased wob/sob noted, RR >30, shallow respirations, unable to speak in full sentences d/t sob. Wheezing heard throughout all lung mejia. Per EMS- pt was 88% on 4L NC, placed on NRB @15L per minute with O2 sats increasing to 97%. Taisha RT at bedside- placed on 4L O2 NC, O2 sat >92%. RR remains >30, increased wob/shallow respirations. Sinus tach on media monitor- HR 140s. Pt power port accessed by Fela HARRIS at bedside- verification of power port with recent CXR. EKG and labs obtained. Medications infusing per AUG. Call mondragon within reach, all needs met at this time.
[2025-05-27 10:29] LABS: Hematocrit 23.5 % (37.0-47.0); Hemoglobin 7.6 g/dl (12.0-16.0); Imm Gran Abs Auto 0.03 X10*3/uL (0.00-0.03); Imm Gran Pct Auto 1.3 % (0.0-0.4); Lymphocytes Absolute Auto 0.3 X10*3/uL (1.2-4.9); Mean Corpuscular HGB Conc 32.3 g/dl (31.0-35.0); Mean Corpuscular Hemoglobin 26.7 pg (27.0-33.0); Mean Corpuscular Volume 82.5 fL (80.0-98.0); NRBC Abs Auto 0.020 X10*3/uL (0.0-0.012); NRBC Pct Auto 0.8 /100WBC (0.0-0.2); Platelet Count 158 X10*3/uL (160-400); Red Blood Count 2.85 X10*6/uL (4.20-5.50); SCAN SMEAR FLAG 1
[2025-05-27 10:32] LABS: White Blood Count 2.4 X10*3/uL (4.8-10.8)
[2025-05-27 10:33] LABS: INTERNATIONAL NORM RATIO 1.2 (0.9-1.1); Prothrombin Time 15.1 SEC (11.2-13.5)
[2025-05-27 10:39] LABS: Alanine Aminotransferase 20 U/L (0-31); Albumin Level 3.5 g/dL (3.5-5.0); Alkaline Phosphatase 119 U/L (39-117); Anion Gap 15 (12-20); Aspartate Amino Transferase 22 U/L (5-31); Blood Urea Nitrogen 11 mg/dL (9-16); Calcium 8.9 mg/dL (8.4-10.2); Carbon Dioxide 18 mmol/L (22-29); Chloride 106 mmol/L (96-108); Creatinine Clr Calc Pharmacy 63.2; Estimated Glomerular Filt Rate > 60; Lipase 8 U/L (8-78); Potassium 3.2 mmol/L (3.3-5.1); Sodium 136 mmol/L (135-145); Total Protein 7.6 g/dL (6.5-8.0)
[2025-05-27 10:49] LABS: Troponin-I High Sensitivity 58.5 ng/L (<3.5-17.0)
--- NOTE | 2025-05-27 10:58 | ED_ITS ---
HPI - SOB/Dyspnea General Chief Complaint: Dyspnea Stated Complaint: LUNG CA/COPD,SOB,HOME NEB HELPFUL,88%,WHEEZE Time Seen by Provider: 05/27/25 09:49 Source: patient, EMS and old records reviewed Mode of arrival: EMS Limitations: no limitations History of Present Illness ED Provider: DR. Green HPI Narrative: 60-year-old female with PMHx of squamous cell carcinoma of the lungs currently on chemotherapy last session was yesterday, COPD, SLE, DVT, osteopenia, DARIN, tobacco dependence patient brought in by ambulance for evaluation of respiratory distress started since 4 in the morning, found by EMS to have acute respiratory distress with respiratory rate greater than 30 and O2 sat of 88% on room air patient was placed on nasal cannula without improvement of the hypoxia patient was placed on 15 L of non-rebreather, patient has a history of left lung atelectasis with a recent CT of the chest with showing occlusion of the left bronchus likely by her neoplasm. Patient declined any bleeding no rectal bleeding, no vomiting blood. Related Data Home Medications ?Medication ?Instructions ?Recorded ?Confirmed aspirin 81 mg tablet,delayed 81 mg PO DAILY 03/19/20 1 07/11/24 release (Adult Low Dose Aspirin) levalbuterol HCl 1.25 mg/3 mL 1.25 mg inhalation Q4H P RN 09/13/22 05/10/25 solution for nebulization Respiratory Distress hydroxychloroquine 200 mg tablet 400 mg PO DAILY 04/2005/10/25 sennosides 8.6 mg-docusate sodium 1 tab-cap PO BID 05/10/25 50 mg tablet (Senna with Docusate Sodium) fluticasone fur. 200 mcg-umeclid 1 inh inhalation NED Y 05/10/25 05/10/25 62.5 mcg-vilant 25 mcg inhalat.powder (Trelegy Ellipta) Previous Rx's ?Medication ?Instructions ?Recorded albuterol sulfate 90 mcg/actuation 1 inh inhalation QI D PRN shortness 08/13/22 aerosol inhaler of breath or wheezing #8.5 g carlos dexamethasone 4 mg tablet 4 mg PO BID #20 tabs 03/18/ 5 ondansetron 8 mg disintegrating 8 mg PO Q8H PRN nausea and 03/24/25 tablet vomiting #30 tabs polyethylene glycol 3350 17 gram 17 g PO DAILY PRN con stipation 04/10/25 oral powder packet (Miralax) #30 ea folic acid 1 mg tablet 1 mg PO DAILY #90 tabs 04/15 atorvastatin 40 mg tablet (Lipitor) 40 mg PO BEDTIME # 90 tabs 04/22/25 potassium chloride 20 mEq 20 meq PO BID #60 tabs 05/15 tablet,extended release morphine 30 mg tablet,extended 30 mg PO Q12H #60 tabs 05/22/25 release oxycodone 5 mg tablet 5 mg PO Q8H PRN Severe Pain (Scale 05/22/25 Score 7-10) #45 tabs Allergies Allergy/AdvReac Type Severity Reaction Status Date / Time paclitaxel Allergy Severe Shortness Verified 05/27/25 09:48 of Breath Review of Systems 2 Review of Systems: All other systems are reviewed and are negative Constitutional: Reports as per HPI and Reports no additional constitutional complaints Eyes: Reports as per HPI and Reports no additional eye complaints Reports system reviewed and no additional complaints, except as documented Cardiovascular: Reports as per HPI and Reports no additional cardiovascular complaints Respiratory: Reports as per HPI and Reports no additional respiratory complaints Gastrointestinal: Reports as per HPI and Reports no additional gastrointestinal complaints Genitourinary: Reports no additional female genitourinary complaints Musculoskeletal: Reports no additional musculoskeletal complaints Skin/Breast: Reports system reviewed and no additional complaints, except as docu Psychiatric: Reports no additional psychiatric complaints Endocrine: Reports no additional endocrine complaints Hematologic/Lymphatic: Reports no additional hematologic/lymphatic complaints Allergic/Immunologic: Reports no additional allergic/immunologic complaints Reports system reviewed and no additional complaints, except as documented and Reports Abnormal speech present ON LICENSE OF [facility] Past Medical History Medical History History of DVT (deep vein thrombosis) (~2014) Systemic lupus erythematosus (~2006) Long-term use of hydroxychloroquine Osteopenia (~2024) COPD (chronic obstructive pulmonary disease) Asthma Obstructive sleep apnea Nicotine dependence, cigarettes, uncomplicated Hyperplastic colon polyp Surgical History History of colonoscopy Family History Family History Mother Breast cancer Sister Breast cancer Social History Social History Household Members: Significant Other Housing: House Do you presently have visiting nurse or other home services: No Alcohol intake: current Alcohol intake frequency: does not drink Alcohol type: hard liquor Patient Tobacco Use Status: Former Tobacco user Tobacco use type: Cigarette Cigarette Packs Per Day: 1 Years Smoked: (onset 15yo, 1/2ppd x 44yrs, 22pyh) Smoked in Last 30 Days: No Second Hand Smoke Exposure: No Use of substances other than those prescribed or required for medical reasons: No Advance Directives: Yes Advance Directives on File: Yes Advance Directives Date on File: 03/11/25 Do you have a plan to hurt others: No Plan Nutrition Risks: Poor intake 0-25% >4 days Patient : No service: No Current occupational status: disabled Physical Exam 2 Vital Signs: Vital Signs: Last Vital Signs Temp 98.5 F 05/27/25 11:34 Pulse 130 H 05/27/25 13:34 Resp 31 H 05/27/25 13:34 BP 128/77 05/27/25 13:34 Pulse Ox 96 05/27/25 13:34 O2 Del Method Nasal Cannula 05/27/25 13:34 O2 Flow Rate 2 05/27/25 13:34 Oxygen Flow Rate 15 05/27/25 09:46 BMI result Body Mass Index 20.2 Vital signs have been reviewed and appear to be correct. Blood pressure elevated. Heart rate Elevated, Respiratory rate elevated, Temperature normal. Oxygen saturation normal. Appearance: Alert. Oriented X3. No acute distress. Head: Normal external exam. Normocephalic. Atraumatic. No Colindres signs noted. No raccoon eyes noted Eyes: PERRLA. EOMI. Conjunctiva and sclera normal. Eyelids normal. ENT: TM's Normal. Pharynx normal. Uvula midline. Moist mucous membranes. No trismus noted. No drooling noted. No muffled voice noted. Neck: Normal inspection. Neck supple. FROM. No adenopathy. Thyroid Normal. No meningeal signs. No neck mass noted. CVS: Normal heart rate and rhythm. Heart sound normal. No murmurs noted. Pulses normal throughout. Respiratory: mild acute respiratory distress. Painless inspiration. Breath sounds normal. diffuse mild wheezing with prolonged expiration Chest nontender. No accessory muscle usage noted or decreased air movement noted. Abdomen: Soft and nontender. Bowel sounds normal in all 4 quadrants. No distention noted. No organomegaly noted. No visible injury noted. Back: No CVA tenderness. Full range of motion noted. Skin: Skin warm and dry. Normal skin color. Normal skin turgor. No rashes/lesions/lacerations noted. Extremities: No lower extremity edema. Extremities exhibit normal range of motion. Extremities nontender. Neuro: Oriented X 3. Cranial nerve exam: II-XII are grossly intact No motor deficit. No sensory deficit. Reflexes normal. Course Reevaluation(s) Reevaluation #1: 60-year-old female with history of lung cancer currently on chemotherapy last session was yesterday presented with acute respiratory distress, CTA ruled out pulmonary embolism but showing obstructing mass to the left bronchus that was seen in prior CT last week, patient currently is more comfortable, with O2 sat of 96% on 2 L of nasal cannula. Case was discussed with Dr. Reaves sr. manager marketing on-call today who recommended to admit to the medical floor and consult if needed. Patient will be admitted to medical service. Time: 13:55 Medications Administered Discontinued Medications Generic Name Dose Route Start Last Admin Trade Name Freq PRN Reason Stop Dose Admin Doxycycline Hyclate 100 mg/ 250 mls @ 166.67 mls/hr 05/27/25 09:49 05/27/25 12:28 Sodium Chloride IV 05/27/25 11:18 Infused ONCE ONE Infusion Magnesium Sulfate 2 gm in 50 mls @ 150 mls/hr 05/27/25 09:56 05/27/25 10:30 Magnesium Sulfate/H2o IV 05/27/25 10:15 Infused ONCE ONE Infusion Iohexol 100 ml 05/27/25 11:25 05/27/25 11:34 Iohexol 350 Mg/Ml 100 Ml Infus..Btl IV 05/27/25 11:26 58 ml ONCE ONE Administration Levalbuterol HCl 2.5 mg 05/27/25 11:29 05/27/25 11:32 Levalbuterol Hcl 1.25 Mg/3 Ml Vial.Neb INHALE 05/27/25 11:30 2.5 mg ONCE ONE Administration Methylprednisolone Sodium Succinate 125 mg 05/27/25 10:54 05/27/25 11:01 Methylprednisolone Sod Succ 125 Mg/2 Ml Vial IVPUSH 05/27/25 10:55 125 mg ONCE ONE Administration Medical Decision Making Differential Diagnosis Differential Diagnoses: The differential diagnosis associated with the presentation includes ( Pulmonary embolism, pneumothorax, pleural effusion, atelectasis, obstructing mass, COPD exacerbation, acute respiratory failure.) Admission/Observation Consideration of admission/observation: Escalation of care including admission/observation considered Consult Healthcare Provider Management of the patient was discussed with: Hospitalist ( Dr. Reaves) and Trench Trimmer Fine ( Dr. Ho) Lab Data MDM Lab Attestation statement: I reviewed the patient's lab results. 05/27/25 10:16 05/27/25 10:16 Labs: Lab Results 05/27/25 05/27/25 05/27/25 Range/Units 10:15 10:16 10:23 WBC 2.4 L (4.8-10.8) X10*3/uL RBC 2.85 L (4.20-5.50) X10*6/uL Hgb 7.6 L (12.0-16.0) g/dl Hct 23.5 L (37.0-47.0) % MCV 82.5 (80.0-98.0) fL MCH 26.7 L (27.0-33.0) pg MCHC 32.3 (31.0-35.0) g/dl RDW 18.9 H (11.0-16.0) % Plt Count 158 L (160-400) X10*3/uL MPV 11.2 (9.4-12.3) fL Immature Gran % (Auto) 1.3 H (0.0-0.4) % Neut % (Auto) 80.3 H (45-73) % Lymph % (Auto) 13.0 L (20-40) % [place] % (Auto) 4.6 (2-11) % Eos % (Auto) 0.0 (0-4) % Baso % (Auto) 0.8 (0-2) % Lymph # (Auto) 0.3 L (1.2-4.9) X10*3/uL [place] # (Auto) 0.1 (0.1-1.2) X10*3/uL Eos # (Auto) 0.0 (0.0-0.4) X10*3/uL Baso # (Auto) 0.0 (0.0-0.2) X10*3/uL Abs Immat Gran (auto) 0.03 (0.00-0.03) X10*3/uL Absolute Neuts (auto) 1.9 L (2.0-8.3) x10*3/uL Absolute Nucleated RBC 0.020 H (0.0-0.012) X10*3/uL Nucleated RBC % (auto) 0.8 H (0.0-0.2) /100WBC Hold Purple Top SEE NOTE PT 15.1 H (11.2-13.5) SEC INR 1.2 H (0.9-1.1) VBG pH 7.36 (7.32-7.43) VBG pCO2 30 mmHg VBG pO2 60 mmHg VBG HCO3 17 L (22-26) mmol/L VBG O2 Saturation 83.0 % VBG Base Excess -6.5 mmol/L Sodium 136 (135-145) mmol/L Potassium 3.2 L D (3.3-5.1) mmol/L Chloride 106 (96-108) mmol/L Carbon Dioxide 18 L (22-29) mmol/L Anion Gap 15 (12-20) BUN 11 (9-16) mg/dL Creatinine 0.86 (0.5-1.4) mg/dL Estim Creat Clear Calc 63.2 Estimated GFR > 60 Random Glucose 106 (60-115) mg/dL Lactic Acid 1.7 (0.5-2.0) mmol/L Calcium 8.9 (8.4-10.2) mg/dL Total Bilirubin 1.4 H (0.0-1.0) mg/dL Direct Bilirubin 0.6 H (0.0-0.5) mg/dL AST 22 (5-31) U/L ALT 20 (0-31) U/L Alkaline Phosphatase 119 H (39-117) U/L Troponin I High Sens 58.5 H* D (<3.5-17.0) ng/L Total Protein 7.6 (6.5-8.0) g/dL Albumin 3.5 (3.5-5.0) g/dL Lipase 8 (8-78) U/L Stool Occult Blood (NEGATIVE) Influenza Type A (PCR) NEGATIVE (Negative) Influenza Type B (PCR) NEGATIVE (Negative) RSV RNA Qual (PCR) NEGATIVE (Negative) SARS-CoV-2 RNA (RT-PCR) NEGATIVE (Negative) Blood Type Antibody Screen 05/27/25 05/27/25 Range/Units 11:20 13:32 WBC (4.8-10.8) X10*3/uL RBC (4.20-5.50) X10*6/uL Hgb (12.0-16.0) g/dl Hct (37.0-47.0) % MCV (80.0-98.0) fL MCH (27.0-33.0) pg MCHC (31.0-35.0) g/dl RDW (11.0-16.0) % Plt Count (160-400) X10*3/uL MPV (9.4-12.3) fL Immature Gran % (Auto) (0.0-0.4) % Neut % (Auto) (45-73) % Lymph % (Auto) (20-40) % [place] % (Auto) (2-11) % Eos % (Auto) (0-4) % Baso % (Auto) (0-2) % Lymph # (Auto) (1.2-4.9) X10*3/uL [place] # (Auto) (0.1-1.2) X10*3/uL Eos # (Auto) (0.0-0.4) X10*3/uL Baso # (Auto) (0.0-0.2) X10*3/uL Abs Immat Gran (auto) (0.00-0.03) X10*3/uL Absolute Neuts (auto) (2.0-8.3) x10*3/uL Absolute Nucleated RBC (0.0-0.012) X10*3/uL Nucleated RBC % (auto) (0.0-0.2) /100WBC Hold Purple Top PT (11.2-13.5) SEC INR (0.9-1.1) VBG pH (7.32-7.43) VBG pCO2 mmHg VBG pO2 mmHg VBG HCO3 (22-26) mmol/L VBG O2 Saturation % VBG Base Excess mmol/L Sodium (135-145) mmol/L Potassium (3.3-5.1) mmol/L Chloride (96-108) mmol/L Carbon Dioxide (22-29) mmol/L Anion Gap (12-20) BUN (9-16) mg/dL Creatinine (0.5-1.4) mg/dL Estim Creat Clear Calc Estimated GFR Random Glucose (60-115) mg/dL Lactic Acid (0.5-2.0) mmol/L Calcium (8.4-10.2) mg/dL Total Bilirubin (0.0-1.0) mg/dL Direct Bilirubin (0.0-0.5) mg/dL AST (5-31) U/L ALT (0-31) U/L Alkaline Phosphatase (39-117) U/L Troponin I High Sens 113.5 H* D (<3.5-17.0) ng/L Total Protein (6.5-8.0) g/dL Albumin (3.5-5.0) g/dL Lipase (8-78) U/L Stool Occult Blood NEGATIVE (NEGATIVE) Influenza Type A (PCR) (Negative) Influenza Type B (PCR) (Negative) RSV RNA Qual (PCR) (Negative) SARS-CoV-2 RNA (RT-PCR) (Negative) Blood Type A Positive Antibody Screen NEGATIVE Independent Interpretation I performed an independent interpretation of an: Plain X-Ray ( chest:1. Interval improvement of the aeration of the left upper lobe 2. Persistent atelectasis of the left lower lobe. ) and CT Scan ( Chest:1. No evidence of pulmonary emboli. 2. Occlusion of the left mainstem bronchus with near complete atelectasis of the left lower lobe. Spiculated soft tissue mass extending from the left hilum to the pleural surface, compatible with neoplasm. 3. Cardiomegaly and pulmonary arterial h) Radiology Impression Discussion of test interpretation with radiology: I have reviewed the radiologist's reading. Chronic Conditions Patient?s care impacted by: Cancer and Other ( COPD/asthma) Critical Care Time Critical Care Time Critical Care Time: Yes Total Critical Care Time: 60 Attestation: The patient was critically ill with a high probability of imminent or life- threatening deterioration. I spent greater than 30 minutes of discontinuous time evaluating the patient, delivering critical care at the bedside, discussing evaluating data with consultants. Critical care time does not include time spent performing separately billable procedures or teaching. Time spent performing critical care was 60 minutes. Discharge Plan Discharge Clinical Impression: COPD exacerbation, Lung cancer Patient Disposition: Admitted As Inpatient
--- OUTSIDE RECORDS SUMMARY | 2025-05-27 11:02 | XMS_ITS | Encounter Summary ---
Author Organization [employer] Address [address] [facility] 7t [place] [address] Care Team Providers Care Machine Sand Mixer Name Role Phone Marjan Sams MD Primary Care Provider [phone]- [phone] Esteban Nice MD Unavailable Ashley Chnael OD Unavailable [phone] Alban Koehler Unavailable Sonja Patel MD Unavailable [phone] Jack Lyles Unavailable Reason for Visit * Reason Comments Med Refill Encounter Details Date Type Department Care Team (Late st Contact Info) Description 10/19/2023 Refill [facility] MEDICINE [address] [place] [address] Lluvia Mendoza MD 230 [place] [address] History of DVT (deep vein thrombosis) Social [...] the past 12 months, has t he [employer] gas, oil or water company threatened to [...] Team (Late st Contact Info) Description 05/27/2025 11:45 AM EST Telemedicine [facility] MEDICINE [address] [place] [address] Marjan Sams MD [address] [place] [address] documented as of this encounter Visit Diagnoses Diagnosis History of DVT (deep vein thrombosis) documented in this encounter Additional Health Concerns Assessment Noted Time PHQ-9 Depression Total Score: 0 11/04/19 23 10:28 AM EDT documented as of this encounter Care Teams Machine Sand Mixer Relationship Specialty Start Date End Date Marjan Sams MD [address] [place] [address] PCP - General Family Medicine 06/04/18 Esteban Nice MD [address] [place] [address] [place] [address] Rheumatology 05/21/24 Ashley Chanel OD [address] [place] [address] Optometry 05/21/24 Alban Koehler 175 [facility] 110 [place] [address] Podiatry 10/08/24 Sonja Patel MD [address] [place] [address] Hematology and Oncology 02/26/25 Jack Lyles [address] 1104 Thoracic Surgery 02/26/25 Dea Hewitt MD Rheumatology 10/06/24 documented as of this encounter
--- OUTSIDE RECORDS SUMMARY | 2025-05-27 11:02 | XMS_ITS | Encounter Summary ---
Author Organization [employer] Address [address] [facility] 7t [place] [address] Care Team Providers Care School Guidance Counselor Name Role Phone Marjan Sams MD Primary Care Provider [phone]- [phone] Esteban Nice MD Unavailable Ashley Chanel OD Unavailable [phone] Alban Koehler Unavailable Sonja Patel MD Unavailable [phone] Jack Lyles Unavailable Reason for Visit * Reason Onset Date Comments Med Refill 01/19/2023 Encounter Details Date Type Department Care Team (Late st Contact Info) Description 01/19/2023 Telephone [facility] MEDICINE [address] [place] [address] Marjan Sams MD 230 [place], [place] [phone] Med Refill Social History Tobacco Use Types [...] (Percocet) 5-325 MG tablet Please sent to [facility]/pharmacy #[id number] - [place] - [address] [facility] documented in this encounter Plan of Treatment Upcoming Encounters Date Type Department Care Team (Late st Contact Info) Description 05/27/2025 11:45 AM EST Telemedicine [facility] MEDICINE [address] [place] [address] Marjan Sams MD [address] [place] [address] documented as of this encounter Visit Diagnoses Not on filedocumented in this encounter Additional Health Concerns Assessment Noted Time PHQ-9 Depression Total Score: 0 11/04/19 23 10:28 AM EDT documented as of this encounter Care Teams School Guidance Counselor Relationship Specialty Start Date End Date Marjan Sams MD [address] [place] [address] PCP - General Family Medicine 06/04/18 Esteban Nice MD [address] [place] [address] Rheumatology 05/21/24 Ashley Chanel OD [address] [place] [address] Optometry 05/21/24 Alban Koehler [address] [address] Podiatry 10/08/24 Sonja Patel MD [address] [place] [address] Hematology and Oncology 02/26/25 Jack Lyles 299 [place] [address] Thoracic Surgery 02/26/25 Dea Hewitt MD Rheumatology 10/06/24 documented as of this encounter
--- OUTSIDE RECORDS SUMMARY | 2025-05-27 11:02 | XMS_ITS | Encounter Summary ---
Author Organization [employer] Address [address] [facility] 7t [place] [address] Care Team Providers Care Cut Off Saw Set Up Operator Name Role Phone Marjan Sams MD Primary Care Provider [phone] Esteban Nice MD Unavailable Ashley Chanel OD Unavailable [phone] Alban Koehler Unavailable Sonja Patel MD Unavailable [phone] Jack Lyles Unavailable Reason for Visit * Reason Onset Date Comments Durable Medical Equipment 05/22/2025 Encounter Details Date Type Department Care Team (Late st Contact Info) Description 05/22/2025 Telephone [facility] MEDICINE [address] [place] [address] Marjan Sams MD 230 [place], [place] [phone] Durable Medical Equipment Social History Tobacco Use Types Packs/Day Years [...] * Telephone Encounter - Giovanna Childers - 05/22/2025 1:25 PM EST Tc from pt requesting a new scrip for a nebulizer, Pt stated her actual one is not working. Contact pt at [phone] documented in this encounter Plan of Treatment Upcoming Encounters Date Type Department Care Team ([facility] st Contact Info) Description 05/27/2025 11:45 AM EST Telemedicine [facility] MEDICINE [address] [place] [phone] Marjan Sams MD [address] [place] [address] documented as of this encounter Visit Diagnoses Not on filedocumented in this encounter Additional Health Concerns Assessment Noted Time PHQ-9 Depression Total Score: 0 03/13/20 25 11:24 AM EDT documented as of this encounter Care Teams Cut Off Saw Set Up Operator Relationship Specialty Start Date End Date Marjan Sams MD [address] [place] [address] PCP - General Family Medicine 06/04/18 Esteban Nice MD [address] [address] Rheumatology 05/21/24 Ashley Chanel OD 180 [place] [address] Optometry 05/21/24 Alban Koehler 175 [facility] 110 [place] [address] Podiatry 10/08/24 Sonja Patel MD [address] [place] [address] Hematology and Oncology 02/26/25 Jack Lyles [address] 1104 Thoracic Surgery 02/26/25 Dea Hewitt MD Rheumatology 10/06/24 documented as of this encounter
--- OUTSIDE RECORDS SUMMARY | 2025-05-27 11:02 | XMS_ITS | Encounter Summary ---
Author Organization [employer] Address [address] [facility] 7t [place] [address] Care Team Providers Care Chart Changer Name Role Phone Marjan Sams MD Primary Care Provider [phone]- [phone] Esteban Nice MD Unavailable Ashley Chanel OD Unavailable [phone] Alban Koehler Unavailable Sonja Patel MD Unavailable [phone] Jack Lyles Unavailable Encounter Details Date Type Department Care Team (Late st Contact Info) Description 03/22/2023 Abstract [facility] MEDICINE [address] [place], [place] [phone] Marjan Sams MD 230 [place], [place] [phone] Preventative health care; Osteoarthritis of knee, unspecified [...] Info) Description 05/27/2025 11:45 AM EST Telemedicine [facility] MEDICINE [address] [place] [address] Marjan Sams MD 230 [place] [address] documented as of this encounter Visit Diagnoses Diagnosis Preventative health care Routine general medical examination at a health care facility Osteoarthritis of knee, unspecified laterality, unspecified osteoarthritis type documented in this encounter Additional Health Concerns Assessment Noted Time PHQ-9 Depression Total Score: 0 11/04/19 23 10:28 AM EDT documented as of this encounter Care Teams Chart Changer Relationship Specialty Start Date End Date Marjan Sams MD [address] [place] [address] PCP - General Family Medicine 06/04/18 Esteban Nice MD [address] [place] [address] Rheumatology 05/21/24 Ashley Chanel OD 180 [place] [address] Optometry 05/21/24 Alban Koehler 175 [facility] 110 [place] [address] Podiatry 10/08/24 Sonja Patel MD [address] [place] [address] Hematology and Oncology 02/26/25 Jack Lyles [address] 1104 Thoracic Surgery 02/26/25 Dea Hewitt MD Rheumatology 10/06/24 documented as of this encounter
--- OUTSIDE RECORDS SUMMARY | 2025-05-27 11:02 | XMS_ITS | Clinical Summary ---
Author Organization [facility] Address 175 [place] [address] Phone Care Team Providers Care Commission Associate Name Role Phone Malachi Elizabeth Kalyan GARCIA Primary Care Provider [phone]- [phone] Allergies No known active allergies Social History [...] MEDICARE ADVANTAGE MEDICAID - [place] Care Teams Commission Associate Relationship Specialty Start Date End Date Elizabeth Ly DO [address] [place] [address] PCP - General Family Medicine 10/02/24
--- OUTSIDE RECORDS SUMMARY | 2025-05-27 11:02 | XMS_ITS | Encounter Summary ---
Author Organization [employer] Address 75 [facility] 7t [place] [address] Care Team Providers Care Engineer Soils Name Role Phone Marjan Sams MD Primary Care Provider +1- [phone] Esteban Nice MD Unavailable Ashley Chanel OD Unavailable [phone] Alban Koehler Unavailable Sonja Patel MD Unavailable [phone] Jack Lyles Unavailable Reason for Visit * Reason Onset Date Comments Uber Set-up 01/23/2024 Encounter Details Date Type Department Care Team (Late st Contact Info) Description 01/23/2024 Telephone [facility] MEDICINE [address] [place] [address] Marjan Sams MD 230 [place], [place] [phone] Uber Set-up Social History Tobacco Use Types [...] the past 12 months, has t he [employer], gas, oil or water License [employer] threatened to shut off services in your [...] request a uber set-up for 01/29 appt justowriter operator did confirm address and call back number documented in this encounter Plan of Treatment Upcoming Encounters Date Type Department Care Team (Late st Contact Info) Description 05/27/2025 11:45 AM EST Telemedicine [facility]ICINE 230 [place] [address] Marjan Sams MD 230 [place] [address] documented as of this encounter Visit Diagnoses Not on filedocumented in this encounter Additional Health Concerns Assessment Noted Time PHQ-9 Depression Total Score: 0 11/04/19 23 10:28 AM EDT documented as of this encounter Care Teams Engineer Soils Relationship Specialty Start Date End Date Marjan Sams MD 230 [place] [address] PCP - General Family Medicine 06/04/18 Esteban Nice MD [address] 402 [place] [address] Rheumatology 05/21/24 Ashley Chanel OD 180 [place] [address] Optometry 05/21/24 Alban Koehler 175 [facility] 110 [place] [address] Podiatry 10/08/24 Sonja Patel MD [address] [place] [address] Hematology and Oncology 02/26/25 Jack Lyles 299 [facility] 410 [place], [place] 1104 Thoracic Surgery 02/26/25 Dea Hewitt MD Rheumatology 10/06/24 documented as of this encounter
--- OUTSIDE RECORDS SUMMARY | 2025-05-27 11:02 | XMS_ITS | Encounter Summary ---
Author Organization [employer] Address 75 [facility] 7t [place] [address] Care Team Providers Care Rigger Up Name Role Phone Marjan Sams MD Primary Care Provider +1- [phone] Esteban Nice MD Unavailable Ashley Chanel OD Unavailable [phone] Alban Koehler Unavailable Sonja Patel MD Unavailable [phone] Jack Lyles Unavailable Reason for Visit * Reason Comments Med Refill Encounter Details Date Type Department Care Team (Late st Contact Info) Description 07/25/2023 Refill [facility] 230 [place], [place] [phone] Marjan Sams MD 230 [place], [place] [phone] Arthritis of both knees Social History Tobacco [...] the past 12 months, has t he [employer], gas, oil or water company threatened to [...] Info) Description 05/27/2025 11:45 AM EST Telemedicine [facility] [address] [place] [address] Marjan Sams MD [address] [place] [address] documented as of this encounter Visit Diagnoses Diagnosis Arthritis of both knees documented in this encounter Additional Health Concerns Assessment Noted Time PHQ-9 Depression Total Score: 0 11/04/19 23 10:28 AM EDT documented as of this encounter Care Teams Rigger Up Relationship Specialty Start Date End Date Marjan Sams MD [address] [place] [address] PCP - General Family Medicine 06/04/18 Esteban Nice MD [address] [place] [address] Rheumatology 05/21/24 Ashley Chanel OD 180 [place] [address] Optometry 05/21/24 Alban Koehler 175 [facility] 110 [place] [address] Podiatry 10/08/24 Sonja Patel MD [address] [place] [address] Hematology and Oncology 02/26/25 Jack Lyels [address] 1104 Thoracic Surgery 02/26/25 Dea Hewitt MD Rheumatology 10/06/24 documented as of this encounter
--- OUTSIDE RECORDS SUMMARY | 2025-05-27 11:02 | XMS_ITS | Encounter Summary ---
Author Organization [employer] Address 75 [facility] [address]t [place] [address] Care Team Providers Care Recruiting Assistant Name Role Phone Marjan Sams MD Primary Care Provider +1- [phone] Esteban Nice MD Unavailable Ashley Chanel OD Unavailable [phone] Alban Koehler Unavailable Sonja Patel MD Unavailable [phone] Jack Lyles Unavailable Reason for Visit * Reason Onset Date Comments Nurse Triage 09/18/2023 Encounter Details Date Type Department Care Team (Late st Contact Info) Description 09/18/2023 Telephone [facility] MEDICINE [address] [place] [address] [phone] Marjan Sams MD 230 [place], [place] [phone] Nurse Triage Social History Tobacco Use Types [...] the past 12 months, has t he [employer], gas, oil or water [employer] threatened to shut off services in your [...] Description 05/27/2025 11:45 AM EST Telemedicine [facility] MEDICINE 230 [place] [address] Marjan Sams MD 230 [place] [address] documented as of this encounter Visit Diagnoses Not on filedocumented in this encounter Additional Health Concerns Assessment Noted Time PHQ-9 Depression Total Score: 0 11/04/19 23 10:28 AM EDT documented as of this encounter Care Teams Recruiting Assistant Relationship Specialty Start Date End Date Marjan Sams MD 230 [place] [address] PCP - General Family Medicine 06/04/18 Esteban Nice MD [address] 402 [place] [address] Rheumatology 05/21/24 Ashley Chanel OD 180 [place] [address] Optometry 05/21/24 Alban Koehler 175 [facility] 110 [place] [address] Podiatry 10/08/24 Sonja Patel MD [address] [place] [address] Hematology and Oncology 02/26/25 Jack Lyles 299 [facility] 410 [place], [place] 1104 Thoracic Surgery 02/26/25 Dea Hewitt MD Rheumatology 10/06/24 documented as of this encounter
--- OUTSIDE RECORDS SUMMARY | 2025-05-27 11:02 | XMS_ITS | Encounter Summary ---
Author Organization [employer] Address 75 [facility] 7t [place] [address] Care Team Providers Care Hoop Punch And Coiler Operator Helper Name Role Phone Marjan Sams MD Primary Care Provider +1- [phone] Esteban Nice MD Unavailable Ashley Chanel OD Unavailable [phone] Alban Koehler Unavailable Sonja Patel MD Unavailable [phone] Jack Lyles Unavailable Reason for Visit * Reason Onset Date Comments Med Refill 02/19/2023 Encounter Details Date Type Department Care Team (Late st Contact Info) Description 02/19/2023 Telephone [facility] MEDICINE [address] [place] [address] Marjan Sams MD 230 [place], [place] [phone] Med Refill Social History Tobacco Use Types [...] Info) Description 05/27/2025 11:45 AM EST Telemedicine [facility] MEDICINE [address] [place] [address] Marjan Sams MD [address] [place] [address] documented as of this encounter Visit Diagnoses Not on filedocumented in this encounter Additional Health Concerns Assessment Noted Time PHQ-9 Depression Total Score: 0 11/04/19 23 10:28 AM EDT documented as of this encounter Care Teams Hoop Punch And Coiler Operator Helper Relationship Specialty Start Date End Date Marjan Sams MD 230 [place] [address] PCP - General Family Medicine 06/04/18 Esteban Nice MD [address] [place] [address] Rheumatology 05/21/24 Ashley Chanel OD 180 [place] [address] Optometry 05/21/24 Alban Koehler [address] [address] Podiatry 10/08/24 Sonja Patel MD [address] [place] [address] Hematology and Oncology 02/26/25 Jack Lyles [address] 110 Thoracic Surgery 02/26/25 Dea Hewitt MD Rheumatology 10/06/24 documented as of this encounter
--- OUTSIDE RECORDS SUMMARY | 2025-05-27 11:02 | XMS_ITS | Encounter Summary ---
Author Organization [employer] Address 75 [facility] 7t [place] [address] Care Team Providers Care Autopsy Pathologist Name Role Phone Marjan Sams MD Primary Care Provider +1- [phone] Esteban Nice MD Unavailable Ashley Chanel OD Unavailable [phone] Alban Koehler Unavailable Sonja Patel MD Unavailable [phone] Jack Lyles Unavailable Reason for Visit * Reason Comments Med Refill Encounter Details Date Type Department Care Team (Late st Contact Info) Description 02/10/2025 Refill [facility] MEDICINE 230 [place] [address] Marjan Sams MD 230 [place] [address] Tobacco dependence syndrome Social History Tobacco Use [...] Info) Description 05/27/2025 11:45 AM EST Telemedicine [facility] MEDICINE 230 [place] [address] Marjan Sams MD 230 [place] [address] documented as of this encounter Visit Diagnoses Diagnosis Tobacco dependence syndrome Tobacco use disorder documented in this encounter Additional Health Concerns Assessment Noted Time PHQ-9 Depression Total Score: 4 02/13/20 9:45 AM EDT documented as of this encounter Care Teams Autopsy Pathologist Relationship Specialty Start Date End Date Marjan Sams MD 230 [place] [address] PCP - General Family Medicine 06/04/18 Esteban Nice MD [address] 402 [place] [address] Rheumatology 05/21/24 Ashley Chanel OD 180 [place] [address] Optometry 05/21/24 Alban Koehler 175 [facility] 110 [place] [address] Podiatry 10/08/24 Sonja Patel MD [address] [place] [address] Hematology and Oncology 02/26/25 Jack Lyles 299 [facility] 410 [place], [place] 1104 Thoracic Surgery 02/26/25 Dea Hewitt MD Rheumatology 10/06/24 documented as of this encounter
--- OUTSIDE RECORDS SUMMARY | 2025-05-27 11:02 | XMS_ITS | Encounter Summary ---
Author Organization [employer] Address 75 [facility] 7t [place] [address] Care Team Providers Care Hydraulic Lift Operator Name Role Phone Marjan Sams MD Primary Care Provider +1- [phone] Esteban Nice MD Unavailable Ashley Chanel OD Unavailable [phone] Alban Koehler Unavailable Sonja Patel MD Unavailable [phone] Jack Lyles Unavailable Reason for Visit * Reason Onset Date Comments appt change 05/26/2025 Encounter Details Date Type Department Care Team (Late st Contact Info) Description 05/26/2025 Telephone [facility] MEDICINE [address] [place] [address] Marjan Sams MD 230 [place] [address] appt change Social History Tobacco Use Types Packs/Day Years [...] Telephone Encounter - Awa Martinez MA - 05/26/2025 1:05 PM EST I book the appointment on 05/27/2026 at 11:45 am by phone.. documented in this encounter Plan of Treatment Upcoming Encounters Date Type Department Care Team (Late st Contact Info) Description 05/27/2025 11:45 AM EST Telemedicine [facility] MEDICINE 230 [place] [address] Marjan Sams MD 230 [place] [address] documented as of this encounter Visit Diagnoses Not on filedocumented in this encounter Additional Health Concerns Assessment Noted Time PHQ-9 Depression Total Score: 0 03/13/20 25 11:24 AM EDT documented as of this encounter Care Teams Hydraulic Lift Operator Relationship Specialty Start Date End Date Marjan Sasm MD 230 [place], [place] [phone] PCP - General Family Medicine 06/04/18 Esteban Nice MD [address] [phone] Rheumatology 05/21/24 Ashley Chanel OD 180 [place] [address] Optometry 05/21/24 Alban Koehler 175 [facility] 110 [place] [address] Podiatry 10/08/24 Sonja Patel MD [address] [place] [address] Hematology and Oncology 02/26/25 Jack Lyles [address] 1104 Thoracic Surgery 02/26/25 Dea Hewitt MD Rheumatology 10/06/24 documented as of this encounter
--- OUTSIDE RECORDS SUMMARY | 2025-05-27 11:02 | XMS_ITS | Encounter Summary ---
Author Organization [employer] Address [address] [facility] [address] 7t [place] [address] Care Team Providers Care Urinalysis Technician Name Role Phone Marjan Sams MD Primary Care Provider +1- [phone] Esteban Nice MD Unavailable Ashley Chanel OD Unavailable [phone] Alban Koehler Unavailable Sonja Patel MD Unavailable [phone] Jack Lyles Unavailable Reason for Visit * Reason Onset Date Comments Error (VOID this visit) 05/26/2025 Encounter Details Date Type Department Care Team (Late st Contact Info) Description 05/26/2025 Telephone [facility] MEDICINE 230 [place] [address] Awa Martinez MA Error (VOID this visit) Social History Tobacco Use Types Packs/Day Years [...] Encounter - Awa Martinez MA - 05/26/2025 1:08 PM EST error documented in this encounter Plan of Treatment Upcoming Encounters Date Type Department Care Team (Late st Contact Info) Description 05/27/2025 11:45 AM EST Telemedicine [facility] MEDICINE 230 [place], [place] [phone] Marjan Sams MD 230 [place] [address] documented as of this encounter Visit Diagnoses Not on filedocumented in this encounter Additional Health Concerns Assessment Noted Time PHQ-9 Depression Total Score: 0 03/13/20 25 11:24 AM EDT documented as of this encounter Care Teams Urinalysis Technician Relationship Specialty Start Date End Date Marjan Sams MD 230 [place] [address] PCP - General Family Medicine 06/04/18 Esteban Nice MD [address] [place] [address] Rheumatology 05/21/24 Ashley Chanel OD 180 [place] [address] Optometry 05/21/24 Alban Koehler 175 [facility] 110 [place] [address] Podiatry 10/08/24 Sonja Patel MD [address] [place] [address] Hematology and Oncology 02/26/25 Jack Lyles 299 [facility] 410 [place], [place] 1104 Thoracic Surgery 02/26/25 Dea Hewitt MD Rheumatology 10/06/24 documented as of this encounter
--- OUTSIDE RECORDS SUMMARY | 2025-05-27 11:02 | XMS_ITS | Encounter Summary ---
Author Organization [employer] Address 75 [facility] 7t [place] [address] Care Team Providers Care Channel Marketing Program Manager Name Role Phone Marjan Sams MD Primary Care Provider [phone]- [phone] Esteban Nice MD Unavailable Ashley Chanel OD Unavailable [phone] Alban Koehler Unavailable Sonja Patel MD Unavailable [phone] Jack Lyles Unavailable Reason for Visit * Reason Onset Date Comments Med Refill 01/21/2024 Encounter Details Date Type Department Care Team (Late st Contact Info) Description 01/21/2024 Telephone [facility] MEDICINE [address] [place] [address] [phone] Marjan Sams MD 230 [place], [place] [phone] Med Refill Social History Tobacco Use Types [...] To be sent to: [facility] documented in this encounter Plan of Treatment Upcoming Encounters Date Type Department Care Team (Late st Contact Info) Description 05/27/2025 11:45 AM EST Telemedicine [facility] MEDICINE 230 [place] [address] Marjan Sams MD 230 [place] [address] documented as of this encounter Visit Diagnoses Not on filedocumented in this encounter Additional Health Concerns Assessment Noted Time PHQ-9 Depression Total Score: 0 11/04/19 23 10:28 AM EDT documented as of this encounter Care Teams Channel Marketing Program Manager Relationship Specialty Start Date End Date Marjan Sams MD 230 [place] [address] PCP - General Family Medicine 06/04/18 Esteban Nice MD [address] [place] [address] 402 [place] [address] Rheumatology 05/21/24 Ashley Chanel OD 180 [place] [address] Optometry 05/21/24 Alban Koehler 175 [facility] 110 [place] [address] Podiatry 10/08/24 Sonja Patel MD [address] [place] [address] Hematology and Oncology 02/26/25 Jack Lyles 299 [facility] 410 [place], [place] 1104 Thoracic Surgery 02/26/25 Dea Hewitt MD Rheumatology 10/06/24 documented as of this encounter
--- OUTSIDE RECORDS SUMMARY | 2025-05-27 11:02 | XMS_ITS | Encounter Summary ---
Author Organization [employer] Address 75 [facility] 7t [place] [address] Care Team Providers Care Inspector Optical Instrument Name Role Phone Marjan Sams MD Primary Care Provider +1- [phone] Esteban Nice MD Unavailable Ashley Chanel OD Unavailable [phone] Alban Koehler Unavailable Sonja Patel MD Unavailable [phone] Jack Lyles Unavailable Reason for Visit * Reason Onset Date Comments Call Back Request 10/14/2024 Encounter Details Date Type Department Care Team (Late st Contact Info) Description 10/14/2024 Telephone [facility] MEDICINE [address] [place] [address] Marjan Sams MD 230 [place] [address] Call Back Request (/) Social History Tobacco [...] RN - 10/14/2024 12:04 PM EDT Called [facility] Centralized scheduling who said that the pt has a DEXA scan scheduled for 10/29/24 but noultrasounds today or otherwise. Nothing noted in chart. Called pt and informed her of this, pt unaware of US ordered by specialist. Advised her if anything else comes up regarding this will let her know. Pt verbalized understanding. Shade Hanger found note in chart from xray of the spine ordered by Dr Koehler (podiatry) that recommended follow up Vascular US abdominal aorta aneurysm (AAA) screening. Called pt back to advise of this and gave her phone number to call to clarify with Dr Koehler and to reschedule. [phone] . Pt verbalized understanding, to call that [...] Info) Description 05/27/2025 11:45 AM EST Telemedicine [facility] MEDICINE 230 [place] [address] Marjan Sams MD 230 [place] [address] documented as of this encounter Visit Diagnoses Not on filedocumented in this encounter Additional Health Concerns Assessment Noted Time PHQ-9 Depression Total Score: 4 02/13/20 24 9:45 AM EDT documented as of this encounter Care Teams Inspector Optical Instrument Relationship Specialty Start Date End Date Marjan Sams MD 230 [place] [address] PCP - General Family Medicine 06/04/18 Esteban Nice MD [address] [place] [address] [place] [address] Rheumatology 05/21/24 Ashley Chanel OD [address] [place] [address] Optometry 05/21/24 Alban Koehler 175 [facility] 110 [place] [address] Podiatry 10/08/24 Sonja Patel MD [address] [place] [address] Hematology and Oncology 02/26/25 Jack Lyles 299 [facility] 410 [place], [place] 1104 Thoracic Surgery 02/26/25 Dea Hewitt MD Rheumatology 10/06/24 documented as of this encounter
--- OUTSIDE RECORDS SUMMARY | 2025-05-27 11:02 | XMS_ITS | Encounter Summary ---
Author Organization [employer] Address 75 [facility] 7t [place] [address] Care Team Providers Care Reweaver Name Role Phone Marjan Sams MD Primary Care Provider +1- [phone] Esteban Nice MD Unavailable Ashley Chanel OD Unavailable [phone] Alban Koehler Unavailable Sonja Patel MD Unavailable [phone] Jack Lyles Unavailable Encounter Details Date Type Department Care Team (Late st Contact Info) Description 06/29/2022 Abstract [facility] MEDICINE [address] [place] [address] [phone] Marjan Sams MD [address] [place] [address] [phone] Social History Tobacco Use Types Packs/Day Years [...] Info) Description 05/27/2025 11:45 AM EST Telemedicine [facility] MEDICINE [address] [place] [address] [phone] Marjan Sams MD [address] [place] [address] documented as of this encounter Procedures Procedure [...] on filedocumented in this encounter Care Teams Reweaver Relationship Specialty Start Date End Date Marjan Sams MD 230 [place] [address] PCP - General Family Medicine 06/04/18 Esteban Nice MD [address] [place] [address] 402 [place] [address] Rheumatology 05/21/24 Ashley Chanel OD 180 [place] [address] Optometry 05/21/24 Alban Koehler 175 [facility] 110 [place] [address] Podiatry 10/08/24 Sonja Patel MD [address] [place] [address] Hematology and Oncology 02/26/25 Jack Lyles 299 [facility] 410 [place], [place] 110 Thoracic Surgery 02/26/25 Dea Hewitt MD Rheumatology 10/06/24 documented as of this encounter
--- OUTSIDE RECORDS SUMMARY | 2025-05-27 11:02 | XMS_ITS | Encounter Summary ---
Author Organization [employer] Address 75 [facility] 7t [place] [address] Care Team Providers Care Beam Doffer Name Role Phone Marjan Sams MD Primary Care Provider +1- [phone] Esteban Nice MD Unavailable Ashley Chanel OD Unavailable [phone] Alban Koehler Unavailable Sonja Patel MD Unavailable [phone] Jack Lyles Unavailable Reason for Visit * Reason Onset Date Comments PT1 04/17/2025 Encounter Details Date Type Department Care Team (Late st Contact Info) Description 04/17/2025 Telephone [facility] MEDICINE [address] [place] [address] [phone] Marjan Sams MD 230 [place], [place] [phone] PT1 Social History Tobacco Use Types Packs/Day [...] name or facility name: [address], [place] [address] Escort needed: Y/N: Yes Do you have a wheelchair: Y/N: No If yes- Manual or electric: N/A Visits 3 x monthly documented in this encounter Plan of Treatment Upcoming Encounters Date Type Department Care Team (Late st Contact Info) Description 05/27/2025 11:45 AM EST Telemedicine [facility] MEDICINE 230 [place] [address] Marjan Sams MD 230 [place], [place] [phone] documented as of this encounter Visit Diagnoses Not on filedocumented in this encounter Additional Health Concerns Assessment Noted Time PHQ-9 Depression Total Score: 0 03/13/20 11:24 AM EDT documented as of this encounter Care Teams Beam Doffer Relationship Specialty Start Date End Date Marjan Sams MD 230 [place], [place] [phone] PCP - General Family Medicine 06/04/18 Esteban Nice MD [address] [phone] Rheumatology 05/21/24 Ashley Chanel OD 180 [place] [address] Optometry 05/21/24 Alban Koehler 175 [facility] 110 [place] [address] Podiatry 10/08/24 Sonja Patel MD [address] [place] [address] Hematology and Oncology 02/26/25 Jack Lyles [address] 110 Thoracic Surgery 02/26/25 Dea Hewitt MD Rheumatology 10/06/24 documented as of this encounter
--- OUTSIDE RECORDS SUMMARY | 2025-05-27 11:02 | XMS_ITS | Encounter Summary ---
Author Organization [employer] Address 75 [facility] 7t [place] [address] Care Team Providers Care Salon Stylist Name Role Phone Marjan Sams MD Primary Care Provider [phone] Esteban Nice MD Unavailable Ashley Chanel OD Unavailable [phone] Alban Koehler Unavailable Sonja Patel MD Unavailable [phone] Jack Lyles Unavailable Encounter Details Date Type Department Care Team (Late st Contact Info) Description 02/25/2025 Orders Only [facility] [address] [place] [address] Provider, MD Yoseph Social History Tobacco Use [...] Info) Description 05/27/2025 11:45 AM EST Telemedicine [facility] MEDICINE 230 [place] [address] Marjan Sams MD 230 [place] [address] documented as of this encounter Procedures Procedure [...] documented as of this encounter Care Teams Salon Stylist Relationship Specialty Start Date End Date Marjan Sams MD 230 [place] [address] PCP - General Family Medicine 06/04/18 Esteban Nice MD [address] [place] [address] 402 [place] [address] Rheumatology 05/21/24 Ashley Chanel OD 180 [place] [address] Optometry 05/21/24 Alban Koehler 175 [facility] 110 [place] [address] Podiatry 10/08/24 Sonja Patel MD [address] [place] [address] Hematology and Oncology 02/26/25 Jack Lyles 299 [facility] 410 [place], [place] 110[address] Thoracic Surgery 02/26/25 Dea Hewitt MD Rheumatology 10/06/24 documented as of this encounter
--- OUTSIDE RECORDS SUMMARY | 2025-05-27 11:02 | XMS_ITS | Encounter Summary ---
Author Organization [employer] Address 75 [facility] 7t [place] [address] Care Team Providers Care Activities Director Name Role Phone Marjan Sams MD Primary Care Provider [phone] Esteban Nice MD Unavailable Ashley Chanel OD Unavailable [phone] Alban Koehler Unavailable Sonja Patel MD Unavailable [phone] Jack Lyles Unavailable Reason for Visit * Reason Onset Date Comments chartprep 05/26/2025 Encounter Details Date Type Department Care Team (Late st Contact Info) Description 05/26/2025 Telephone [facility] MEDICINE [address] [place] [address] Marjan Sams MD 230 [place] [address] chartprep Social History Tobacco Use Types Packs/Day Years [...] Encounter - Awa Martinez [place] - 05/26/2025 2:33 PM EST ..Chart Prep Labs: done Images: done CT chest Vaccines due: Covid Due and RSV in Pharmacy Due Referrals: Not Applicable Screenings: Mammogram Overdue care gaps: None documented in this encounter Plan of Treatment Upcoming Encounters Date Type Department Care Team ([facility] st Contact Info) Description 05/27/2025 11:45 AM EST Telemedicine [facility] MEDICINE [address] [place] [address] Marjan Sams MD 230 [place] [address] documented as of this encounter Visit Diagnoses Not on filedocumented in this encounter Additional Health Concerns Assessment Noted Time PHQ-9 Depression Total Score: 0 03/13/20 25 11:24 AM EDT documented as of this encounter Care Teams Activities Director Relationship Specialty Start Date End Date Marjan Sams MD 230 [place] [address] PCP - General Family Medicine 06/04/18 Esteban Nice MD [address] [address] Rheumatology 05/21/24 Ashley Chanel OD 180 [place] [address] Optometry 05/21/24 Alban Koehler 175 [facility] 110 [place] [address] Podiatry 10/08/24 Sonja Patel MD [address] [place] [address] Hematology and Oncology 02/26/25 Jack Lyles [address] 110[address] Thoracic Surgery 02/26/25 Dea Hewitt MD Rheumatology 10/06/24 documented as of this encounter
--- OUTSIDE RECORDS SUMMARY | 2025-05-27 11:02 | XMS_ITS | Encounter Summary ---
Author Organization [employer] Address 75 [facility] 7t [place] [address] Care Team Providers Care Fireworks Assembler Name Role Phone Marjan Sams MD Primary Care Provider [phone] Esteban Nice MD Unavailable Ashley Chanel OD Unavailable [phone] Alban Koehler Unavailable Sonja Patel MD Unavailable [phone] Jack Lyles Unavailable Encounter Details Date Type Department Care Team (Late st Contact Info) Description 05/27/2025 Orders Only GENERIC EXTERNAL DATA DEPARTMENT Provider, Generic External Data Social History Tobacco Use Types Packs/Day Years [...] Info) Description 05/27/2025 11:45 AM EST Telemedicine [facility] MEDICINE [address] [place] [address] Marjan Sams MD 230 [place] [address] documented as of this encounter Procedures Procedure Name Priority Date/Time Associated Diagnosis Comments XR CHEST 1 VIEW Routine 05/27/2025 10:33 AM EST VENOUS BLOOD GAS Routine 05/27/2025 10:2 3 AM EST HIGH SENSITIVITY TROPONIN I Routine 05/27/2025 10:16 AM EST CBC WITH AUTO DIFFERENTIAL Routine 05/27/2025 10:16 AM EST PROTHROMBIN TIME-INR Routine 05/27/2025 10:16 AM EST LIPASE Routine 05/27/2025 10:16 AM EST LACTIC ACID Routine 05/27/2025 10:16 AM EST HEPATIC FUNCTION PANEL Routine 05/27/2025 10:16 AM EST BASIC METABOLIC PANEL Routine 05/27/2025 10:16 AM EST HOLD LAVENDER - POSSIBLE HEMATOLOGY Routine 05/27/2025 10:15 AM EST documented in this encounter Results * XR Chest 1 View (05/27/2025 10:33 AM EST) Anatomical Region Laterality Modality Chest Radiographic Erendira ging 05/27/2025 10:3 3 AM EST Narrative 05/27/2025 11:00 AM EST [place] [address] XRay Report Signed Patient: Tammy Moeller MR#: [id number] : 1965 Acct:[id number] Age/Sex: 60 / F ADM Date: 05/27/25 Loc: .ED Attending Dr: Ordering Physician: Jordana Green MD Date of Service: 05/27/25 Procedure(s): XR chest 1V Accession Number(s): [id number] cc: Marjan Sams MD; Jordana Green MD Reason for Exam: sob EXAMINATION: XR CHEST CLINICAL INFORMATION: sob COMPARISON: Chest radiograph on May 09, 2025. Chest CT on May 11, 2025. TECHNIQUE: Frontal view of the chest was obtained. FINDINGS: Devices/Tubes/Lines: Right chest Port-A-Cath in place Lungs: Persistent atelectasis of the left lower lobe results in overall volume loss of the left lung. Interval improvement of the aeration of the left upper lobe, with residual faint opacity. Minimal subsegmental atelectasis of the right lung base. Pleura: No pneumothorax. Possibly small left pleural effusion. Heart/Mediastinum: Redemonstration of deviation of the cardiomediastinal silhouette to the left side. Bones: No acute findings. XR/XR chest 1V IMPRESSION: 1. Interval improvement of the aeration of the left upper lobe 2. Persistent atelectasis of the left lower lobe. Electronically signed by: Ky Leija MD 05/27/2025 10:57 AM EST Dictated By: Ky Leija MD Signed By: <Electronically signed by Ky Leija MD in OV> 05/27/25 1057 DD/ 1033 TD/TT: 05/27/25 1035 Tube Backer: Procedure Note Donotuseinterpreter, Image - 05/27/[address] [address] XRay Report Signed Patient: Tammy Moeller#: [id number] : 1965Acct:[id number] Age/Sex: 60 / FADM Date: 05/27/25 Loc: HO.ED Attending Dr: Ordering Physician: Jordana Green MD Date of Service: 05/27/25 Procedure(s): XR chest 1V Accession Number(s): [id number] cc: Marjan Sams MD; Jordana Green MD Reason for Exam: sob EXAMINATION: XR CHEST CLINICAL INFORMATION: sob COMPARISON: Chest radiograph on May 09, 2025. Chest CT on May 11, 2025. TECHNIQUE: Frontal view of the chest was obtained. FINDINGS: Devices/Tubes/Lines: Right chest Port-A-Cath in place Lungs: Persistent atelectasis of the left lower lobe results in overall volume loss of the left lung. Interval improvement of the aeration of the left upper lobe, with residual faint opacity. Minimal subsegmental atelectasis of the right lung base. Pleura: No pneumothorax. Possibly small left pleural effusion. Heart/Mediastinum: Redemonstration of deviation of the cardiomediastinal silhouette to the left side. Bones: No acute findings. XR/XR chest 1V IMPRESSION: 1. Interval improvement of the aeration of the left upper lobe 2. Persistent atelectasis of the left lower lobe. Electronically signed by: Ky Leija MD 05/27/2025 10:57 AM EST Dictated By: Ky Leija MD Signed By: <Electronically signed by Ky Leija MD in OV> 05/27/25 1057 DD/ 1033 TD/TT: 05/27/25 1035 Tube Backer: [facility] External Provider IMG XR PROCEDURES Edited Result - Final * (ABNORMAL) VENOUS BLOOD GAS (05/27/2025 10:23 AM EST) [facility] VBG pH 7.36 7.32 - 7.43 [facility] Comment:METER #: [id number] additional_comment: Cb bdaweh VBG PCO2 30 mmHg [facility] Comment:METER #: [id number] additional_comment: Cb bdaweh VBG PO2 60 mmHg [facility] Comment:METER #: [id number] additional_comment: Cb bdaweh VBG Base Excess -6.5 mmol/L [facility] Comment:METER #: [id number] additional_comment: Cb bdaweh VBG HCO3 17(L) 22 - 26 mmol/L [facility] Comment:METER #: [id number] additional_comment: Cb bdtimoteoeh O2 Sat, Ronaldo 83.0 % [facility] Comment:METER #: [id number] additional_comment: Cb paulina 05/27/2025 10:2 3 AM EST 05/27/2025 10:27 AM EST Generic External Data Provider LAB BLOOD ORDERAB LES Final Result [facility] [address] [place] [phone] * (ABNORMAL) High Sensitivity Troponin I (05/27/2025 10:16 AM EST) [facility] TROPONIN I HIGH SENSITIVITY 58.5(HH) <3.5 - 17.0 ng/L [facility] Comment:Critical value for t est(s): TROP Results called to gracie back by: SONYA Person calling: MAURICIO Date: 05.27.25Time: 1049The [place] high sensitivity Troponin-I results should beused in conjunction with other diagnostic information suchas ECG, clinical observations and information, and patientsymptoms to aid in the diagnosis of [place]. 05/27/2025 10:1 6 AM EST 05/27/2025 10:20 AM EST Generic External Data Provider LAB BLOOD ORDERAB LES Final Result Performing Organization Address [facility]/ZIP Co de Phone Number [facility] [address] [place] [phone] * Lipase (05/27/2025 10:16 AM EST) Pathologist [facility] Lipase 8 8 - 78 U/L [facility] 05/27/2025 10:1 6 AM EST 05/27/2025 10:20 AM EST Generic External Data Provider LAB BLOOD ORDERAB LES Final Result Performing Organization Address [facility] Co de Phone Number [facility] [address] [place] [phone] * (ABNORMAL) Basic Metabolic Panel (05/27/2025 10:16 AM EST) [facility] Sodium 136 135 - 145 mmol/L [facility] Potassium 3.2(L) 3.3 - 5.1 mmol/L [facility] Chloride 106 96 - 108 mmol/L [facility] Carbon Dioxide 18(L) 22 - 29 mmol/L [facility] Anion Gap 15 12 - 20 [facility] Urea Nitrogen (BUN) 11 9 - 16 mg/dL [facility] Creatinine, Serum 0.86 0.5 - 1.4 mg/dL [facility] Creatinine Clr Calc Pharmacy 63.2 [facility] Comment:Provided height and weight: 167.64 cm,56.8 kg.eGFR (calculated from the MDRD study equation) and eCrCl(calculated from the Cockcroft-Gault equation) are based ondifferent parameters and may not yield comparable results.If eCrCl result is absurd, please check patient'sheight/weight. Estimated Glomerular Filt Rate >60 [facility] Comment:Chronic Kidney Disea se: Estimated GFR < 60 mL/min/1.72o7Uquclr Kidney Disease: Estimated GFR < 15 mL/min/1.73m2 Glucose 106 60 - 115 mg/dL [facility] Calcium 8.9 8.4 - 10.2 mg/dL [facility] 05/27/2025 10:1 6 AM EST 05/27/2025 10:20 AM EST us Generic External Data Provider LAB BLOOD ORDERAB LES Final Result Performing Organization Address City/State/[facility] Co de Phone Number [facility] [address] [place] [phone] * (ABNORMAL) Hepatic Function Panel (05/27/2025 10:16 AM EST) Bilirubin, Total 1.4(H) 0.0 - 1.0 mg/dL [facility] Bilirubin, Direct 0.6(H) 0.0 - 0.5 mg/dL [facility] Aspartate Amino Transferase 22 5 - 31 U/L [facility] Alanine Aminotransferase 20 0 - 31 U/L [facility] Total Protein 7.6 6.5 - 8.0 g/dL [facility] Albumin Level 3.5 3.5 - 5.0 g/dL [facility] Alkaline Phosphatase 119(H) 39 - 117 U/L [facility] 05/27/2025 10:1 6 AM EST 05/27/2025 10:20 AM EST us Generic External Data Provider LAB BLOOD ORDERAB LES Final Result Performing Organization Address City/[facility]/ZIP Co de Phone Number [facility] [address] [place] [address] [phone] * Lactic Acid (05/27/2025 10:16 AM EST) [facility] Lactic Acid 1.7 0.5 - 2.0 mmol/L [facility] 05/27/2025 10:1 6 AM EST 05/27/2025 10:20 AM EST us Generic External Data Provider LAB BLOOD ORDERAB LES Final Result Performing Organization Address [facility] Co de Phone Number [facility] [address] [place] [address] [phone] * (ABNORMAL) CBC auto differential (05/27/2025 10:16 AM EST) [facility] White Blood Count 2.4(L) 4.8 - 10.8 X10*3/uL [facility] Red Blood Count 2.85(L) 4.20 - 5.50 X10*6/uL [facility] Hemoglobin 7.6(L) 12.0 - 16.0 g/dl [facility] Hematocrit 23.5(L) 37.0 - 47.0 % [facility] Mean Corpuscular Volume 82.5 80.0 - 98.0 fL [facility] Mean Corpuscular Hemoglobin 26.7(L) 27.0 - 33.0 pg [facility] Mean Corpuscular HGB Conc 32.3 31.0 - 35.0 g/dl [facility] Red Cell Distribution Width 18.9(H) 11.0 - 16.0 % [facility] Platelet Count 158(L) 160 - 400 X10*3/uL [facility] Mean Platelet Volume 11.2 9.4 - 12.3 fL [facility] Neutrophils Percent Auto 80.3(H) 45 - 73 % [facility] Imm Gran Pct Auto 1.3(H) 0.0 - 0.4 % [facility] Lymphocytes Percent Auto 13.0(L) 20 - 40 % [facility] Monocytes Percent Auto 4.6 2 - 11 % [facility] Eosinophils Percent Auto 0.0 0 - 4 % [facility] Basophils Percent Auto 0.8 0 - 2 % [facility] NRBC Pct Auto 0.8(H) 0.0 - 0.2 /100WBC [facility] Neutrophils Absolute Auto 1.9(L) 2.0 - 8.3 x10*3/uL [facility] Imm Gran Abs Auto 0.03 0.00 - 0.03 X10*3/uL [facility] Lymphocytes Absolute Auto 0.3(L) 1.2 - 4.9 X10*3/uL [facility] Monocytes Absolute Auto 0.1 0.1 - 1.2 X10*3/uL [facility] Eosinophils Absolute Auto 0.0 0.0 - 0.4 X10*3/uL [facility] Basophils Absolute Auto 0.0 0.0 - 0.2 X10*3/uL [facility] NRBC Abs Auto 0.020(H) 0.0 - 0.012 X10*3/uL [facility] 05/27/2025 10:1 6 AM EST 05/27/2025 10:20 AM EST us Generic External Data Provider LAB BLOOD ORDERAB LES Final Result Performing Organization Address City/State/[facility] Co de Phone Number [facility] [address] [place] [phone] * (ABNORMAL) Prothrombin Time-INR (05/27/2025 10:16 AM EST) Prothrombin Time 15.1(H) 11.2 - 13.5 SEC [facility] INTERNATIONAL NORM RATIO 1.2(H) 0.9 - 1.1 [facility] Comment:INTERNATIONAL NORMAL IZED RATIO (INR) REFERENCE RANGES Reference RangeFor patients not on anticoagulant therapy: 0.9 - 1.1INR ranges for oral anticoagulanttherapy:For prevention and treatment of venous thrombosis and pulmonary embolism: 2.0 - 3.0For acute myocardial infarction with aspirin therapy: 2.0 - 3.0For acute myocardial infarction without aspirin therapy: 3.0 - 4.0For patients with mechanical prosthetic heart valves: 2.5 - 3.5 05/27/2025 10:1 6 AM EST 05/27/2025 10:20 AM EST us Generic External Data Provider LAB BLOOD ORDERAB LES Final Result Performing Organization Address [facility] Co de Phone Number [facility] [address] [place] [phone] [phone] * Hold Lavender - Possible Hematology (05/27/2025 10:15 AM EST) Hold Lavender - Possible Hematololgy SEE NOTE [facility] Comment:Specimen will be hel d untested for 8 hours. Call Hematologyif testing is desired. 05/27/2025 10:1 5 AM EST 05/27/2025 10:21 AM EST Generic External Data Provider HISTORICAL/NON OR DERABLE LABS Final Result Performing Organization Address [facility] de Phone Number [facility] [address] [place] [phone] documented in this encounter Visit Diagnoses Not on filedocumented in this encounter Additional Health Concerns Assessment Noted Time PHQ-9 Depression Total Score: 0 03/13/20 25 11:24 AM EDT documented as of this encounter Care Teams Fireworks Assembler Relationship Specialty Start Date End Date Marjan Sams MD [address] [place] [address] PCP - General Family Medicine 06/04/18 Esteban Nice MD [address] [place] [address] [place] [address] Rheumatology 05/21/24 Ashley Chanel OD 180 [place] [address] Optometry 05/21/24 Alban Koehler 175 [facility] 110 [place] [address] Podiatry 10/08/24 Sonja Patel MD [address] [place] [address] Hematology and Oncology 02/26/25 Jack Lyles [address] 1104 Thoracic Surgery 02/26/25 Dea Hewitt MD Rheumatology 10/06/24 documented as of this encounter
--- OUTSIDE RECORDS SUMMARY | 2025-05-27 11:02 | XMS_ITS | Encounter Summary ---
Author Organization [employer] Address [address] [facility] [address] 7t [place] [address] Care Team Providers Care Silk Examiner Name Role Phone Marjan Sams MD Primary Care Provider [phone] Esteban Nice MD Unavailable Ashley Chanel OD Unavailable [phone] Alban Koehler Unavailable Sonja Patel MD Unavailable [phone] Jack Lyles Unavailable Encounter Details Date Type Department Care Team (Latest Contact Info) Description 05/26/2025 Travel Social History Tobacco Use Types Packs/Day [...] Info) Description 05/27/2025 11:45 AM EST Telemedicine [facility] MEDICINE [address] [place] [address] Marjan Sams MD 230 [place] [address] documented as of this encounter Visit Diagnoses Not on filedocumented in this encounter Additional Health Concerns Assessment Noted Time PHQ-9 Depression Total Score: 0 03/13/20 25 11:24 AM EDT documented as of this encounter Care Teams Silk Examiner Relationship Specialty Start Date End Date Marjan Sams MD [address] [place] [address] PCP - General Family Medicine 06/04/18 Esteban Nice MD [address] [place] [address] Rheumatology 05/21/24 Ashley Chanel OD 180 [place] [address] Optometry 05/21/24 Alban Koehler 175 [facility] 110 [place] [address] Podiatry 10/08/24 Sonja Patel MD [address] [place] [address] Hematology and Oncology 02/26/25 Jack Lyles 299 [facility] 410 [place], [place] 1104 Thoracic Surgery 02/26/25 Dea Hewitt MD Rheumatology 10/06/24 documented as of this encounter
--- OUTSIDE RECORDS SUMMARY | 2025-05-27 11:02 | XMS_ITS | Encounter Summary ---
Author Organization [employer] Address 75 [facility] 7t [place] [address] Care Team Providers Care Stippler Name Role Phone Marjan Sams MD Primary Care Provider [phone] Esteban Nice MD Unavailable Ashley Chanel OD Unavailable [phone] Alban Koehler Unavailable Sonja Patel MD Unavailable [phone] Jack Lyles Unavailable Reason for Visit * Reason Onset Date Comments Med Refill 02/21/2024 Encounter Details Date Type Department Care Team (Late st Contact Info) Description 02/21/2024 Telephone [facility] MEDICINE [address] [place] [address] Marjan Sams MD 230 [place], [place] [phone] Med Refill Social History Tobacco Use Types [...] be sent to: [facility]/pharmacy #[id number] [place], [place] - [address] [place] [address] documented in this encounter Plan of Treatment Upcoming Encounters Date Type Department Care Team (Late st Contact Info) Description 05/27/2025 11:45 AM EST Telemedicine [facility]INE 230 [place] [address] Marjan Sams MD 230 [place], [place] [phone] documented as of this encounter Visit Diagnoses Not on filedocumented in this encounter Additional Health Concerns Assessment Noted Time PHQ-9 Depression Total Score: 4 02/13/20 24 9:45 AM EDT documented as of this encounter Care Teams Stippler Relationship Specialty Start Date End Date Marjan Sams MD 230 [place] [address] PCP - General Family Medicine 06/04/18 Esteban Nice MD [address] 402 [place] [address] Rheumatology 05/21/24 Ashley Chanel OD 180 [place] [address] Optometry 05/21/24 Alban Koehler 175 [facility] 110 [place] [address] Podiatry 10/08/24 Sonja Patel MD [address] [place] [address] Hematology and Oncology 02/26/25 Jack Lyles 299 [facility] 410 [place], [place] 1104 Thoracic Surgery 02/26/25 Dea Hewitt MD Rheumatology 10/06/24 documented as of this encounter
--- OUTSIDE RECORDS SUMMARY | 2025-05-27 11:03 | XMS_ITS | Encounter Summary ---
Author Organization [employer] Address 75 [facility] 7t [place] [address] Care Team Providers Care Mechanical Engineering Manager Name Role Phone Marjan Sams MD Primary Care Provider [phone] Esteban Nice MD Unavailable Ashley Chanel OD Unavailable [phone] Alban Koehler Unavailable Sonja Patel MD Unavailable [phone] Jack Lyles Unavailable Reason for Visit * Reason Onset Date Comments Med Refill 10/17/2024 Encounter Details Date Type Department Care Team (Late st Contact Info) Description 10/17/2024 Telephone [facility] MEDICINE [address] [place] [phone] Marjan Sams MD 230 [place], [place] [phone] Med Refill Social History Tobacco Use Types [...] To be sent to: [facility]/pharmacy #[id number] - [place], [place] - [address] [place] [address] documented in this encounter Plan of Treatment Upcoming Encounters Date Type Department Care Team (Late st Contact Info) Description 05/27/2025 11:45 AM EST Telemedicine [facility] MEDICINE 230 [place] [address] Marjan Sams MD 230 [place] [address] documented as of this encounter Visit Diagnoses Not on filedocumented in this encounter Additional Health Concerns Assessment Noted Time PHQ-9 Depression Total Score: 4 02/13/20 24 9:45 AM EDT documented as of this encounter Care Teams Mechanical Engineering Manager Relationship Specialty Start Date End Date Marjan Sams MD 230 [place], [place] [phone] PCP - General Family Medicine 06/04/18 Esteban Nice MD [address] [address] Rheumatology 05/21/24 Ashley Chanel OD 180 [place] [address] Optometry 05/21/24 Alban Koehler 175 [facility] 110 [place] [address] Podiatry 10/08/24 Sonja Patel MD [address] [place] [address] Hematology and Oncology 02/26/25 Jack Lyles 299 [facility] 410 [place], [place] 1104 Thoracic Surgery 02/26/25 Dea Hewitt MD Rheumatology 10/06/24 documented as of this encounter
--- OUTSIDE RECORDS SUMMARY | 2025-05-27 11:03 | XMS_ITS | Encounter Summary ---
Author Organization [facility] [employer] Address [address] [facility] [address] [place] [address] Care Team Providers Care [employer] Equipment Mechanic Supervisor Name Role Phone Marjan Sams MD Primary Care Provider [phone] Esteban Nice MD Unavailable Ashley Chanel OD Unavailable [phone] Alban Koehler Unavailable Sonja Patel MD Unavailable [phone] Jack Lyles Unavailable Reason for Visit * Reason Onset Date Comments PT1 10/09/2024 Encounter Details Date Type Department Care Team (Late st Contact Info) Description 10/09/2024 Telephone [facility] [address] [place] [address] [phone] Marjan Sams MD [address], [place] [phone] PT1 Social History Tobacco Use Types Packs/Day [...] Y/N: Yes Provider name or facility name: [address] [place] [address] Escort needed: Y/N: No Do you have a wheelchair: Y/N: No If yes- Manual or electric: N/A Visits: (2x monthly) documented in this encounter Plan of Treatment Upcoming Encounters Date Type Department Care Team (Late st Contact Info) Description 05/27/2025 11:45 AM EST Telemedicine [facility] [address] [place] [address] Marjan Sams MD [address] [place] [address] documented as of this encounter Visit Diagnoses Not on filedocumented in this encounter Additional Health Concerns Assessment Noted Time PHQ-9 Depression Total Score: 4 02/13/20 9:45 AM EDT documented as of this encounter Care Teams [employer] Equipment Mechanic Supervisor Relationship Specialty Start Date End Date Marjan Sams MD [address], [place] [phone] PCP - General Family Medicine 06/04/18 Esteban Nice MD [address] [phone] Rheumatology 05/21/24 Ashley Chanel OD [address] [place] [address] Optometry 05/21/24 Alban Koehler [address] [facility] [address] [place] [address] Podiatry 10/08/24 Sonja Patel MD [address] [place] [address] Hematology and Oncology 02/26/25 Jack Lyles 299 [facility] [address] [place] [address] Thoracic Surgery 02/26/25 Dea Hewitt MD Rheumatology 10/06/24 documented as of this encounter
--- OUTSIDE RECORDS SUMMARY | 2025-05-27 11:03 | XMS_ITS | Clinical Summary ---
Author Organization [email or web address] Address [address] [facility] [address] [place] [address] Care Team Providers Care Analysis Director Name Role Phone Marjan Sams MD Primary Care Provider [phone] Esteban Nice MD Unavailable Ashley Chanel OD Unavailable [phone] Alban Koehler Unavailable Sonja Patel MD Unavailable [phone] Jack Lyles Unavailable Allergies No known active allergies Medications hydroxychloroquin e (Plaquenil) 200 MG tabletIndications :Systemic lupus erythematosus, unspecified SLE type, unspecified organ involvement status (CMS/[facility]) (HCC) Take 200 mg by mouth 2 times daily. Per rheumatology Active naloxone (Narcan) 4 mg/0.1 mL nasal sprayIndications: Chronically on opiate therapy Administer 1 spray (4 mg) into affected nostril(s) if needed for opioid reversal. 2 each Active albuterol 108 (90 Base) MCG/ACT inhalerIndication s:Chronic obstructive pulmonary disease, unspecified COPD type (CMS/HCC) (HCC) Take 2 puffs po q 4 hours prn 18 g 1 Active Blood Pressure kit 1 each 1 (one) time per week. 1 kit Active gabapentin (Neurontin) 300 MG capsule Take 1 capsule (300 mg) by mouth at bedtime. 30 capsule 3 025 2025 Active nicotine (Nicoderm, Step 1) 21 MG/24HR patchIndications: Nicotine Dependence Place 1 patch on the skin 1 (one) time each day at the same time. 30 patch 3 Active nicotine (Nicoderm, Step 2) 14 MG/24HR patchIndications: Nicotine Dependence Place 1 patch on the skin 1 (one) time each day at the same time. 30 patch 3 Active nicotine polacrilex (Nicorette) 4 MG gumIndications:To bacco dependence syndrome Chew 1 each (4 mg) if needed for smoking cessation. 100 each Active Aspirin Low Dose 81 MG EC tabletIndications :History of DVT (deep vein thrombosis) TAKE 1 TABLET (81 MG) BY MOUTH ONCE PER DAY. 90 tablet 3 Active levalbuterol (Xopenex) 1.25 MG/3ML nebulizer solutionIndicatio ns:Mild asthma with acute exacerbation, unspecified whether persistent USE 3 ML BY NEBULIZATION ROUTE EVERY 4 HOURS NEEDED 90 mL Active atorvastatin (Lipitor) 20 MG tablet Take 1 tablet by mouth Once per day. Active dexAMETHasone (Decadron) 4 MG tablet TAKE 1 TABLET BY MOUTH 2 TIMES A DAY TAKE FOR 2 DAYS AFTER CHEMOTHERAPY Active Trelegy Ellipta 200-62.5-25 MCG/ACT aerosol powder Inhale 1 puff Once per day. Active ondansetron ODT (Zofran-ODT) 8 MG disintegrating tablet Take 8 mg by mouth every 8 (eight) hours if needed for nausea or vomiting. Active morphine CR (MS Contin) 30 MG 12 hr tablet Take 1 tablet by mouth 2 times daily. Active oxyCODONE (Roxicodone) 5 MG immediate release tablet Take 1 tablet by mouth every 8 (eight) hours if needed (breakthrough pain). Active polyethylene glycol, PEG, 3350 (Miralax) 17 g packet Take 17 g by mouth if needed each day (constipation). Active potassium chloride CR (K-Tab) 20 MEQ ER tablet Take 1 tablet by mouth 2 times daily. 2025 Active Fluticasone Furoate-Vilantero l (Breo Ellipta) 200-25 MCG/ACT aerosol powderIndications :Chronic obstructive pulmonary disease, unspecified COPD type (CMS/HCC) (HCC) Inhale 1 Inhalation. Once per day. 1 each 11 024 2024 Discontinued(M ed list cleanup (will not trigger notification to Pharmacy)) morphine (MSIR) 15 MG tabletIndications :Pain Take 1 tablet (15 mg) by mouth if needed in the morning and at bedtime for severe pain. Pt will take Percocet for moderate pain and Morphine for severe pain. Diagnosis metastatic lung cancer. She is aware not to take the medicaions together 60 tablet 025 2024 Discontinued(R eorder (will not trigger notification to Pharmacy)) oxyCODONE-acetami nophen (Percocet) 5-325 MG tabletIndications :Arthritis of both knees Take 1 tablet by mouth every 12 (twelve) hours if needed for severe pain. 56 tablet 025 2024 Discontinued(R eorder (will not trigger notification to Pharmacy)) morphine (MSIR) 15 MG tabletIndications :Pain Take 1 tablet (15 mg) by mouth if needed in the morning and at bedtime for severe pain. Pt will take Percocet for moderate pain and Morphine for severe pain. Diagnosis metastatic lung cancer. She is aware not to take the medicaions together Do not start before May 08, 2025. 60 tablet 025 2024 Discontinued(M ed list cleanup (will not trigger notification to Pharmacy)) oxyCODONE-acetami nophen (Percocet) 5-325 MG tabletIndications :Arthritis of both knees Take 1 tablet by mouth every 12 (twelve) hours if needed for severe pain. 56 tablet 025 2024 Discontinued(M ed list cleanup (will not trigger notification to Pharmacy)) Active Problems Patient Care Coordination No te Formatting of this note migh t be different from the original. C3/CM Millie Whiteside RN Problem Noted Date Diagnosed Date Rectal bleeding 05/11/2025 Overview (05/11/2025): Seeni n ER 05/09/25 for rectal bleeding and abdominal painl. CT IMPRESSION: Large rectal stool burden with mild rectal wall thickening concerning for stercoral colitis. Complete consolidation of the left lung base with volume loss and associated leftward mediastinal shift. Correlate with dedicated chest imaging. Sigmoid diverticulosis without evidence of acute diverticulitis. 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 -admitted to [facility] 04/20/25 -ESR 86 04/20/25 -MRI 04/21/25 [...] artery biopsy if clinically indicated. -admitted to [facility] 04/20/25 -ESR 86 04/20/25 -MRI 04/21/25 [...] Decreased diffusion capacity, 27%, suggests emphysema. -start uwnallwqjjh-jgaxgicjj-ekorwpyy 200-62.5-25 mcg (Trelegy Ellipta) 1 inh inhalation DAILY 60 ea 3RF 02/24/25 -establish with oncologist, Dr. Sanabria 02/26/25 -PET-CT performed at [facility] 02/24/2025 revealed complete left upper lobe [...] will be referred to Dr. Lyles at [facility] for surgical evaluation. -MRI brain 03/06/25 [...] Decreased diffusion capacity, 27%, suggests emphysema. -start bjyxehtachd-amvnsbllb-rtfsxfjk 200-62.5-25 mcg (Trelegy Ellipta) 1 inh inhalation DAILY 60 ea 3RF 02/24/25 -establish with oncologist, Dr. Sanabria 02/26/25 -PET-CT performed at [facility] 02/24/2025 revealed complete left upper lobe [...] will be referred to Dr. Lyles at [facility] for surgical evaluation. -MRI brain 03/06/25 [...] Decreased diffusion capacity, 27%, suggests emphysema. -start yvflytbsmfc-ynblrgwlv-rejmhbzz 200-62.5-25 mcg (Trelegy Ellipta) 1 inh inhalation DAILY 60 ea 3RF 02/24/25 -establish with oncologist, Dr. Sanabria 02/26/25 -PET-CT performed at [facility] 02/24/2025 revealed complete left upper lobe [...] will be referred to Dr. Lyles at [facility] for surgical evaluation. 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 is [facility] -health care proxy: pt reports has at home 06/25/23 Assessment & Plan (10/01/2024 2:58 PM EDT): -next comprehensive annual evaluation due after 10/01/25 -eye care facilitated by [facility] in [facility] is [facility] -health care proxy: pt reports has at home 06/25/23 Assessment & Plan (06/25/2023 11:24 AM EST): -next physical exam due after 06/25/24 -eye care facilitated by [facility] in [facility] is [facility] -health care proxy: pt reports has at home 06/25/23 Diverticulitis 10/02/2022 Overview (05/12/2025): Hospitalized at [facility] 05/2025She received 1st cycle chemo- immune therapy on 03/19/2025. Course complicated by BRAO recently, prior h/o DVT, started recently on eliquis, on half-way baby ASA, admitted for rectal/perianal bleeding. Dr. Padilla has evaluated her, since her rectal bleeding was very transient and resolved completely, colonoscopy was not recommended. Found to have further worsening of left lung consolidation. CT abdomen pelvis showed findings concerning for stercoral colitis. CT chest showed left lung opacification. She has baseline shortness of breath and reports no acute worsening. She is not hypoxic. Pulmonary consultation was done, bronchoscopy was not recommended. She can be discharged home today, continue to hold Eliquis. Primary osteoarthritis of hands, bilateral 10/02 COPD [...] as pharmacomtherapy, [facility] smoking [facility], and [facility] pharmacy smoking cessation clinic Discussed USPSTF recommends [...] as pharmacomtherapy, [facility] smoking cessation group, and [facility] pharmacy smoking cessation clinic Discussed USPSTF recommends [...] as pharmacomtherapy, [facility] smoking cessation group, and [facility] pharmacy smoking cessation clinic Discussed USPSTF recommends [...] oral ulcers, bilateral elbow arthritis, ++ URIAH, Mott/CHAPTER RELATIONS ADMINISTRATOR, ++ dsDNA, low C3) -methotrexate caused oral [...] eye exams with [facility] in [place] -note from Dr. Rodriguez 04/15/24 Discussed the [...] oral ulcers, bilateral elbow arthritis, ++ URIAH, Mott/CHAPTER RELATIONS ADMINISTRATOR, ++ dsDNA, low C3) -methotrexate caused oral [...] eye exams with [facility] in [place] -note from Dr. Rodriguze 04/15/24 Discussed the possibility of adding DMARDs [...] Encounters Date Type Department Care Team Description 05/27/2025 Orders Only GENERIC EXTERNAL DATA DEPARTMENT Provider, Generic External Data 05/26/2025 Telephone [facility] [address] [place] [phone] Marjan Sams MD chartprep 05/26/[address] [address] Awa Martinez [place] Error (VOID this visit) 05/26/[address] [address] Marjan Sams MD appt change 05/26/2025 Travel 05/22/[address] [address] Marjan Sams MD Durable Medical Equipment 05/18/2025 Refill [facility] [address] [place] [address] Marjan Sams MD Arthritis of both knees 05/13/2025 Patient Outreach [facility] [address] [place], [place] [phone] Marjan Sams MD Transition Of Care (Tcm) (HDF unscheduled ) 05/09/2025 Orders Only GENERIC EXTERNAL DATA DEPARTMENT Provider, Generic External Data 05/06/2025 Refill [facility] [address] [place] [phone] Jacey Metcalf ANP Squamous cell carcinoma lung, left (CMS/HCC) ([facility]) 04/27/2025 11:45 AM EST Telemedicine [facility] [address] [place] [phone] Majran Sams MD Retinal artery occlusion (Primary Dx); Squamous cell carcinoma lung, left (CMS/HCC) ([facility]) 04/27/2025 Telephone [facility] [address] [place] [address] Viridiana Hernández RN 04/27/[address] [address] Marjan Sams MD 04/27/2025 Travel 04/23/2025 Patient Outreach [address] [address] Marjan Sams MD Transition Of Care (Tcm) (HDF unscheduled unable to LVM ) 04/21/[address] [address] Marjan Sams MD chart prep 04/21/2025 Telephone [facility] [address] [place] [address] Marjan Sams MD 04/20/2025 Orders Only GENERIC EXTERNAL DATA DEPARTMENT Provider, Generic External Data Retinal artery occlusion (Primary Dx); Rectal bleeding 04/19/[address] [address] Marjan Sams MD Arthritis of both knees 04/17/2025 Patient Outreach [address] [address] Marjan Sams MD Care Coordination ([facility] outreach for SDOH PT-1 and food needs-referral completed /) 04/17/[address] [address] Marjan Sams MD PT1 04/10/2025 Refill [facility] [address] [place] [address] Marjan Sams MD Squamous cell carcinoma lung, left (CMS/HCC) (HCC) 04/06/[address] [address] Marjan Sams MD 04/03/[address] [address] Marjan Sams MD chartprep 04/01/2025 Orders Only GENERIC EXTERNAL DATA DEPARTMENT Provider, Generic External Data Squamous cell carcinoma lung, left (CMS/HCC) (HCC) (Primary Dx) 03/30/2025 Telephone [facility] [address] [place] [address] Marjan Sams MD Nurse Triage 03/26/[address] [address] Marjan Sams MD Call Back Request 03/20/2025 Refill [facility] [address] [place] [address] Marjan Sams MD Mild asthma with acute exacerbation, unspecified whether persistent 03/17/2025 Patient Outreach [address] [address] Marjan Sams MD Care Coordination ([facility] outreach for SDOH PT-1 and food needs-referral completed /) 03/17/[address] [address] Marjan Sams MD pt1 03/17/2025 Refill [facility] [address] [place] [address] Marjan Sams MD Arthritis of both knees 03/16/[address] [address] Marjan Sams MD Call Back Request 03/13/2025 9:45 AM EDT Telemedicine [address] [address] Marjan Sams MD Squamous cell carcinoma lung, left (CMS/HCC) (HCC) (Primary Dx) 03/13/[address] [address] Marjan Sams MD 03/12/[address] [address] Marjan Sams MD chart prep 03/12/2025 Orders Only [facility] [address] [place] [address] Marjan Sams MD Squamous cell carcinoma lung, left (CMS/HCC) (HCC) (Primary Dx) 03/06/2025 Orders Only [facility] External Provider, [facility] Squamous cell carcinoma lung, left (CMS/HCC) (HCC) (Primary Dx) 03/05/2025 Orders Only [facility] External Provider, [facility] 03/05/2025 Telephone [facility] [address] [place] [address] Viridiana Hernández RN 02/25/2025 Orders Only [facility] [address] [place] [address] Provider, MD Yoseph from Last 3 Months Immunizations Immunization Administration [...] Info) Description 05/27/2025 11:45 AM EST Telemedicine [facility] [address] [place] [address] Marjan Sams MD [address] [place], [place] [phone] Health Maintenance Due Date Last Done Comments [...] TROPONIN I Routine 05/27/2025 10:16 AM EST LIPASE Routine 05/27/2025 10:16 AM EST BASIC METABOLIC PANEL Routine 05/27/2025 10:16 AM EST HEPATIC FUNCTION PANEL Routine 10:16 AM EST LACTIC ACID Routine 05/27/2025 10:16 AM EST CBC WITH AUTO DIFFERENTIAL Routine 05/27/2025 10:16 AM EST PROTHROMBIN TIME-INR Routine 05/27/2025 10:16 AM EST HOLD LAVENDER - POSSIBLE HEMATOLOGY Routine 05/27/2025 10:[address] CHEST W AND WO CONTRAST Routine 05/11/2025 10:38 AM EST URINALYSIS WITH REFLEX MICROSCOPIC Routine 05/09/2025 8:12 PM EST XR CHEST 2 VIEWS Routine 05/09/2025 7:[address] ABDOMEN PELVIS W CONTRAST Routine 05/09/2025 5:35 PM EST MR BRAIN WO CONTRAST Routine 04/21/2025 10:07 [...] PM EST IR CVC INSERT TUNNEL W PRT/PROFESSOR OF SPECIAL EDUCATION Routine 04/01/2025 12:59 PM EDT PROTHROMBIN TIME-INR Routine 04/01/2025 12:30 PM EDT MR BRAIN W AND WO CONTRAST Routine 03/06/2025 3:16 PM EDT CTA CHEST PE PROTOCAL Routine 03/05/2025 7:58 PM EDT XR CHEST 2 VIEWS Routine 03/05/2025 4:50 PM EDT BI MAMMOGRAM DIAGNOSTIC TOMOSYNTHESIS BILATERAL [...] Relevant to Health Maintenance Results * XR Chest 1 View (05/27/2025 10:33 AM EST) Anatomical Region Laterality Modality Chest Radiographic Erendira ging 05/27/2025 10:3 3 AM EST Narrative 05/27/2025 11:00 AM EST [address] [address] XRay Report Signed Patient: Tammy Moeller MR#: [id number] : 1965 Acct:[id number] Age/Sex: 60 / F ADM Date: 05/27/25 Loc: HO.ED Attending Dr: Ordering Physician: Jordana Green MD Date of Service: 05/27/25 Procedure(s): XR chest 1V Accession Number(s): [id number] cc: Marjan Sams MD; Jordana Green MD [...] by: Ky Leija MD 05/27/2025 10:57 AM [facility] Dictated By: Ky Leija MD Signed By: <Electronically signed by Ky Leija MD in OV> 05/27/25 1057 DD/ 1033 TD/TT: 05/27/25 1035 Clay Digger: Procedure Note Donotuseinterpreter, Image - 05/27/[address] [address] XRay Report Signed Patient: Tammy MoellerR#: [id number] : 1965Acct:[id number] Age/Sex: 60 / FADM Date: 05/27/25 Loc: HO.ED Attending Dr: Ordering Physician: Jordana Green MD Date of Service: 05/27/25 Procedure(s): XR chest 1V Accession Number(s): [id number] cc: Marjan Sams MD; Jordana Green MD [...] 05/27/25 1057 DD/ 1033 TD/TT: 05/27/25 1035 Clay Digger: us [facility] External Provider IMG XR PROCEDURES Edited Result - Final * (ABNORMAL) VENOUS BLOOD GAS (05/27/2025 10:23 AM EST) VBG pH 7.36 7.32 - 7.43 [facility] Comment:METER #: [id number] additional_comment: Cb bdaweh VBG PCO2 30 mmHg [facility] Comment:METER #: [id number] additional_comment: Cb bdaweh VBG PO2 60 mmHg [facility] Comment:METER #: [id number] additional_comment: Cb bdaweh VBG Base Excess -6.5 mmol/L [facility] Comment:METER #: [id number] additional_comment: Chris goldman VBG HCO3 17(L) 22 - 26 mmol/L [facility] Comment:METER #: [id number] additional_comment: Chris goldman O2 Sat, Ronaldo 83.0 % [facility] Comment:METER #: [id number] additional_comment: Chris goldman 05/27/2025 10:2 3 AM EST 05/27/2025 10:27 AM EST Generic External Data Provider LAB BLOOD ORDERAB LES Final Result Performing Organization Address [facility] Co de Phone Number [facility] [address] [place] [phone] * (ABNORMAL) High Sensitivity Troponin I (05/27/2025 10:16 AM EST) Pathologist [facility] TROPONIN I HIGH SENSITIVITY 58.5(HH) <3.5 - 17.0 ng/L [facility] Comment:Critical value for t est(s): TROP Results called to gracie back by: SONYA Person calling: SANTOSKalyan Date: 05.27.25Time: 1049The Hwaley high sensitivity Troponin-I results should beused in conjunction with other diagnostic information suchas ECG, clinical observations and information, and patientsymptoms to aid in the diagnosis of DC. 05/27/2025 10:1 6 AM EST 05/27/2025 10:20 AM EST us Generic External Data Provider LAB BLOOD ORDERAB LES Final Result Performing Organization Address [facility] Co de Phone Number [facility] [address] [place] [phone] * (ABNORMAL) CBC auto differential (05/27/2025 10:16 AM EST) Only the most recent of2 resultswithin the time period is included. Pathologist [facility] White Blood Count 2.4(L) 4.8 - 10.8 X10*3/uL [facility] Red Blood Count 2.85(L) 4.20 - 5.50 X10*6/uL [facility] Hemoglobin 7.6(L) 12.0 - 16.0 g/dl [facility] Hematocrit 23.5(L) 37.0 - 47.0 % [facility] Mean Corpuscular Volume 82.5 80.0 - 98.0 fL [facility] Mean Corpuscular Hemoglobin 26.7(L) 27.0 - 33.0 pg [facility] Mean Corpuscular HGB Conc 32.3 31.0 - 35.0 g/dl [facility] Red Cell Distribution Width 18.9(H) 11.0 - 16.0 % [facility] Platelet Count 158(L) 160 - 400 X10*3/uL [facility] Mean Platelet Volume 11.2 9.4 - 12.3 fL [facility] Neutrophils Percent Auto 80.3(H) 45 - 73 % [facility] Imm Gran Pct Auto 1.3(H) 0.0 - 0.4 % [facility] Lymphocytes Percent Auto 13.0(L) 20 - 40 % [facility] Monocytes Percent Auto 4.6 2 - 11 % [facility] Eosinophils Percent Auto 0.0 0 - 4 % [facility] Basophils Percent Auto 0.8 0 - 2 % [facility] NRBC Pct Auto 0.8(H) 0.0 - 0.2 /100WBC [facility] Neutrophils Absolute Auto 1.9(L) 2.0 - 8.3 x10*3/uL [facility] Imm Gran Abs Auto 0.03 0.00 - 0.03 X10*3/uL [facility] Lymphocytes Absolute Auto 0.3(L) 1.2 - 4.9 X10*3/uL [facility] Monocytes Absolute Auto 0.1 0.1 - 1.2 X10*3/uL [facility] Eosinophils Absolute Auto 0.0 0.0 - 0.4 X10*3/uL [facility] Basophils Absolute Auto 0.0 0.0 - 0.2 X10*3/uL [facility] NRBC Abs Auto 0.020(H) 0.0 - 0.012 X10*3/uL [facility] 05/27/2025 10:1 6 AM EST 05/27/2025 10:20 AM EST Generic External Data Provider LAB BLOOD ORDERAB LES Final Result Performing Organization Address City/[facility]/ZIP Co de Phone Number [facility] [address] [place] [phone] * (ABNORMAL) Prothrombin Time-INR (05/27/2025 10:16 AM EST) Only the most recent of3 resultswithin the time period is included. Prothrombin Time 15.1(H) 11.2 - 13.5 SEC [facility] INTERNATIONAL NORM RATIO 1.2(H) 0.9 - 1.1 [facility] Comment:INTERNATIONAL NORMAL IZED RATIO [...] ORDERAB LES Final Result Performing Organization Address City/[facility]/ZIP Co de Phone Number [facility] [address] [place] [phone] * Lipase (05/27/2025 10:16 AM EST) Lipase 8 8 - 78 U/L [facility] 05/27/2025 10:1 6 AM EST 05/27/2025 10:20 AM EST us Generic External Data Provider LAB BLOOD ORDERAB LES Final Result Performing Organization Address [facility] Co de Phone Number [facility] [address] [place] [phone] Lactic Acid (05/27/2025 10:16 AM EST) Lactic Acid 1.7 0.5 - 2.0 mmol/L [facility] 05/27/2025 10:1 6 AM EST 05/27/2025 10:20 AM EST us Generic External Data Provider LAB BLOOD ORDERAB LES Final Result Performing Organization Address [facility] Phone Number [facility] [address] [place] [phone] * (ABNORMAL) Hepatic Function Panel (05/27/2025 10:16 AM EST) Bilirubin, Total 1.4(H) 0.0 - 1.0 mg/dL [facility] Bilirubin, Direct 0.6(H) 0.0 - 0.5 mg/dL [facility] Aspartate Amino Transferase 22 5 - 31 U/L [facility] Alanine Aminotransferase 20 0 - 31 U/L [facility] Total Protein 7.6 6.5 - 8.0 g/dL [facility] Albumin Level 3.5 3.5 - 5.0 g/dL [facility] Alkaline Phosphatase 119(H) 39 - 117 U/L [facility] 05/27/2025 10:1 6 AM EST 05/27/2025 10:20 AM EST us Generic External Data Provider LAB BLOOD ORDERAB LES Final Result Performing Organization Address [facility] Co de Phone Number [facility] [address] [place] [phone] * (ABNORMAL) Basic Metabolic Panel (05/27/2025 10:16 AM EST) Sodium 136 135 - 145 mmol/L [facility] Potassium 3.2(L) 3.3 - 5.1 mmol/L [facility] Chloride 106 96 - 108 mmol/L [facility] Carbon Dioxide 18(L) 22 - 29 mmol/L [facility] Anion Gap 15 12 - 20 [facility] Urea Nitrogen (BUN) 11 9 - 16 mg/dL [facility] Creatinine, Serum 0.86 0.5 - 1.4 mg/dL [facility] Creatinine Clr Calc Pharmacy 63.2 [facility] Comment:Provided height and weight: 167.64 cm,56.8 kg.eGFR (calculated from the MDRD study equation) and eCrCl(calculated from the Cockcroft-Gault equation) are based ondifferent parameters and may not yield comparable results.If eCrCl result is absurd, please check patient'sheight/weight. Estimated Glomerular Filt Rate >60 [facility] Comment:Chronic Kidney Disea se: Estimated GFR < 60 mL/min/1.17x5Zlcpfs Kidney Disease: Estimated GFR < 15 mL/min/1.73m2 Glucose 106 60 - 115 mg/dL [facility] Calcium 8.9 8.4 - 10.2 mg/dL [facility] 05/27/2025 10:1 6 AM EST 05/27/2025 10:20 AM EST us Generic External Data Provider LAB BLOOD ORDERAB LES Final Result [facility] [address] [place] [address] [phone] * Hold Lavender - Possible Hematology (05/27/2025 10:15 AM EST) Hold Lavender - Possible Hematololgy SEE NOTE [facility] Comment:Specimen will be hel d untested for 8 hours. Call Hematologyif testing is desired. 05/27/2025 10:1 5 AM EST 05/27/2025 10:21 AM EST us Generic External Data Provider HISTORICAL/NON OR DERABLE LABS Final Result Performing Organization Address City/State/[facility] Co de Phone Number [facility] [address] [place] [phone] * CT Chest w/ and w/o Contrast (05/11/2025 10:38 AM EST) Anatomical Region Laterality Modality Body, Chest Computed Tomogra phy 05/11/2025 10:3 8 AM EST Narrative 05/11/2025 11:11 AM EST [address] [address] [address] Scan Report Signed Patient: Tammy Moeller MR#: [id number] : 1965 Acct:[id number] Age/Sex: 60 / F ADM Date: 05/09/25 Loc: [facility] 467-[address]: Pilar Lopez MD Ordering Physician: Ben Isaac Date of Service: 05/11/25 Procedure(s): CT chest wo/w IV con Accession Number(s): [id number] cc: Ben Isaac; Marjan Sams MD Report Number: [id number]: Total DLP = 198.00 mGy-cm Reason for Exam: Worsening left lung consolidation EXAMINATION: CT CHEST WITHOUT THEN WITH IV CONTRAST INDICATION: Worsening left lung consolidation COMPARISON: Comparison is made with the prior examination dated 03/05/2025 TECHNIQUE: Helical CT scan of the chest was performed before and after the intravenous administration of 65 mL Omnipaque 350. Coronal and sagittal reformatted images were generated and reviewed. This CT exam was performed with one or more of the following dose reduction techniques: automated exposure control, adjustment of the mA and/or kV according to patient size, use of iterative reconstruction technique. DLP: 198 mGy-cm CHEST: THYROID: The thyroid is unremarkable. LUNGS: There is near complete atelectasis of the left lung with a small residual aerated portion at the apex. Heterogeneous airspace opacities in this region may represent pneumonia. There is debris in the left mainstem bronchus with occlusion. The right lung is clear. MEDIASTINUM: There is no mediastinal lymphadenopathy. RUPA: There is no right hilar lymphadenopathy. Evaluation of the left hilum is limited by atelectasis of the left lung. CARDIOVASCULATURE: The heart is enlarged. There is no pericardial effusion. The thoracic aorta is normal in caliber. DEGREE OF CORONARY CALCIFICATION: moderate PLEURA: There is a small amount of left pleural fluid. No pneumothorax. AXILLA: There is no axillary lymphadenopathy. BONES AND SOFT TISSUES: Unremarkable UPPER ABDOMEN: The visualized portions of the liver, spleen, and adrenals are unremarkable. CT/CT chest wo/w IV con IMPRESSION: 1. Debris in the left main bronchus with occlusion and near complete atelectasis of the left lung. An underlying mass is not excluded. Further evaluation with bronchoscopy is suggested. 2. Patchy airspace opacity in the aerated portion of the left upper lobe which may represent pneumonia. 3. Small amount of left pleural fluid. Electronically signed by: Alek Camejo MD 05/11/2025 11:09 AM [facility] Dictated By: Alek Camejo MD Signed By: <Electronically signed by Alek Camejo MD in OV> 05/11/25 1109 DD/ 1038 TD/TT: 05/11/25 1055 Clay Digger: Procedure Note Donotuseinterpreter, Image - 05/11/[address] [address] [address] Scan Report Signed Patient: Tammy Moeller#: [id number] : 1965Acct:[id number] Age/Sex: 60 / FADM Date: 05/09/25 Loc: .[facility] 467-[address]: Pilar Lopez MD Ordering Physician: Ben Isaac Date of Service: 05/11/25 Procedure(s): CT chest wo/w IV con Accession Number(s): [id number] cc: Ben Isaac; Marjan Sams MD Report Number: [id number]: Total DLP = 198.00 mGy-cm Reason for Exam: Worsening left lung consolidation EXAMINATION: CT CHEST WITHOUT THEN WITH IV CONTRAST INDICATION: Worsening left lung consolidation COMPARISON: Comparison is made with the prior examination dated 03/05/2025 TECHNIQUE: Helical CT scan of the chest was performed before and after the intravenous administration of 65 mL Omnipaque 350. Coronal and sagittal reformatted images were generated and reviewed. This CT exam was performed with one or more of the following dose reduction techniques: automated exposure control, adjustment of the mA and/or kV according to patient size, use of iterative reconstruction technique. DLP: 198 mGy-cm CHEST: THYROID: The thyroid is unremarkable. LUNGS: There is near complete atelectasis of the left lung with a small residual aerated portion at the apex. Heterogeneous airspace opacities in this region may represent pneumonia. There is debris in the left mainstem bronchus with occlusion. The right lung is clear. MEDIASTINUM: There is no mediastinal lymphadenopathy. RUPA: There is no right hilar lymphadenopathy. Evaluation of the left hilum is limited by atelectasis of the left lung. CARDIOVASCULATURE: The heart is enlarged. There is no pericardial effusion. The thoracic aorta is normal in caliber. DEGREE OF CORONARY CALCIFICATION: moderate PLEURA: There is a small amount of left pleural fluid. No pneumothorax. AXILLA: There is no axillary lymphadenopathy. BONES AND SOFT TISSUES: Unremarkable UPPER ABDOMEN: The visualized portions of the liver, spleen, and adrenals are unremarkable. CT/CT chest wo/w IV con IMPRESSION: 1. Debris in the left main bronchus with occlusion and near complete atelectasis of the left lung. An underlying mass is not excluded. Further evaluation with bronchoscopy is suggested. 2. Patchy airspace opacity in the aerated portion of the left upper lobe which may represent pneumonia. 3. Small amount of left pleural fluid. Electronically signed by: Alek Camejo MD 05/11/2025 11:09 AM EST Dictated By: Alek Camejo MD Signed By: <Electronically signed by Alek Camejo MD in OV> 05/11/25 1109 DD/ 1038 TD/TT: 05/11/25 1055 Clay Digger: [facility] External Provider IMG CT PROCEDURES Final Result * (ABNORMAL) Urinalysis w/reflex microscopic (05/09/2025 8:12 PM EST) Color Urine Yellow [facility] Appearance Urine Clear [facility] PH 7.5 5.0 - 9.0 [facility] Glucose Urine UA Negative Negative mg/dL [facility] Urine Blood Negative Negative [facility] Specific [place] - Urine >=1.030(H) 1.005 - 1.025 [facility] Urine Protein Negative Neg-Trace mg/dL [facility] Urine Ketones Negative Negative mg/dL [facility] Nitrite Urine Negative Negative [facility] Leukocyte Esterase Urine Negative Negative [facility] 05/09/2025 8:12 PM EST 05/09/2025 8:20 PM EST Narrative [facility] - 05/09/2025 8:23 PM EST [id number], Clean Catch Generic External Data Provider LAB URINE ORDERAB LES Final Result Performing Organization Address City/State/[facility] Co de Phone Number [facility] [address] [place] [phone] * XR Chest 2 Views (05/09/2025 7:07 PM EST) Only the most recent of2 resultswithin the time period is included. Anatomical Region Laterality Modality Chest Radiographic Erendira ging 05/09/2025 7:07 PM EST Narrative 05/09/2025 7:09 PM EST [address] [address] XRay Report Signed Patient: Tammy Moeller MR#: [id number] : 1965 Acct:[id number] Age/Sex: 60 / F ADM Date: 05/09/25 Loc: HO.ED Attending Dr: Ordering Physician: Eugenie Brooks NP Date of Service: 05/09/25 Procedure(s): XR chest 2V Accession Number(s): [id number] cc: Marjan Sams MD; Eugenie Brooks NP Reason for Exam: compare to prior CLINICAL HISTORY: compare to prior 2 view chest x-ray Comparison: CR - XR CHEST 1V - 03/19/25 17:[address]/SR - CT ANGIO CHEST PE PROTOCOL - 03/05/25 17:48 EDT Findings: Interval worsening with near complete consolidation of the left gm thorax with volume loss and leftward deviation of the mediastinum. Normal size heart. No acute fracture. IMPRESSION: 1. Interval worsening with near complete consolidation of the left gm thorax with volume loss and leftward deviation of the mediastinum. This document has been electronically signed by: Silvia Shin MD on 05/09/2025 19:07:11 Dictated By: Silvia Shin MD Signed By: <Electronically signed by Silvia Shin MD in OV> 05/09/251907 DD/ 06 TD/TT: 05/09/251906 Clay Digger: Procedure Note Donotuseinterpreter, Image - 05/09/2025 [place] [address] XRay Report Signed Patient: Tammy Moeller#: [id number] : 1965Acct:[id number] Age/Sex: 60 / FADM Date: 05/09/25 Loc: HO.ED Attending Dr: Ordering Physician: Eugenie Brooks NP Date of Service: 05/09/25 Procedure(s): XR chest 2V Accession Number(s): [id number] cc: Marjan Sams MD; Eugenie Brooks NP Reason for Exam: compare to prior CLINICAL HISTORY: compare to prior 2 view chest x-ray Comparison: CR - XR CHEST 1V - 03/19/25 17:[address]/SR - CT ANGIO CHEST PE PROTOCOL - 03/05/25 17:48 EDT Findings: Interval worsening with near complete consolidation of the left gm thorax with volume loss and leftward deviation of the mediastinum. Normal size heart. No acute fracture. IMPRESSION: 1. Interval worsening with near complete consolidation of the left gm thorax with volume loss and leftward deviation of the mediastinum. This document has been electronically signed by: Silvia Shin MD on 05/09/2025 19:07:11 Dictated By: Silvia Shin MD Signed By: <Electronically signed by Silvia Shin MD in OV> 05/09/251907 DD/ 06 TD/TT: 05/09/251906 Clay Digger: [facility] External Provider IMG XR PROCEDURES Final Result * CT Abdomen Pelvis w/ Contrast (05/09/2025 5:35 PM EST) Anatomical Region Laterality Modality Body, Pelvis, Abdomen Computed T omography 05/09/2025 5:35 PM EST Narrative 05/09/2025 5:36 PM EST [place] [address] CT Scan Report Signed Patient: Tammy Moeller MR#: [id number] : 1965 Acct:[id number] Age/Sex: 60 / F ADM Date: 05/09/25 Loc: HO.ED Attending Dr: Ordering Physician: Eugenie Brooks NP Date of Service: 05/09/25 Procedure(s): CT abdomen pelvis w IV con Accession Number(s): [id number] cc: Marjan Sams MD; Eugenie Brooks NP Report Number: [id number]: Total DLP = 404.00 mGy-cm Reason for Exam: diffuse pain, lung CA, rectal bleeding CLINICAL HISTORY: diffuse pain, lung CA, rectal bleeding CT abdomen and pelvis with contrast Comparison: CT/REG/SR - CT ABDOMEN PELVIS WITH IV CONTRAST - 09/13/22 11:36 EDT Findings: Complete consolidation of the left lung base with volume loss and associated leftward mediastinal shift. Unremarkable gallbladder and solid organs. No urolithiasis. No bowel obstruction, pneumoperitoneum, or pneumatosis. Sigmoid diverticulosis. Large rectal stool burden with mild rectal wall thickening. Pelvic contents unremarkable. Normal appendix. No acute fracture. IMPRESSION: Large rectal stool burden with mild rectal wall thickening concerning for stercoral colitis. Complete consolidation of the left lung base with volume loss and associated leftward mediastinal shift. Correlate with dedicated chest imaging. Sigmoid diverticulosis without evidence of acute diverticulitis. This document has been electronically signed by: Silvia Shin MD on 05/09/2025 17:35:37 Dictated By: Silvia Shin MD Signed By: <Electronically signed by Silvia Shin MD in OV> 05/09/251735 DD/ 34 TD/TT: 05/09/251734 Clay Digger: Procedure Note Donotuseinterpreter, Image - 05/09/[address] [place] [address] [address] Scan Report Signed Patient: Tammy Moeller#: [id number] : 1965Acct:[id number] Age/Sex: 60 / FADM Date: 05/09/25 Loc: HO.ED Attending Dr: Ordering Physician: Eugenie Brooks NP Date of Service: 05/09/25 Procedure(s): CT abdomen pelvis w IV con Accession Number(s): [id number] cc: Marjan Sams MD; Eugenie Brooks NP Report Number: [id number]: Total DLP = 404.00 mGy-cm Reason for Exam: diffuse pain, lung CA, rectal bleeding CLINICAL HISTORY: diffuse pain, lung CA, rectal bleeding CT abdomen and pelvis with contrast Comparison: CT/REG/SR - CT ABDOMEN PELVIS WITH IV CONTRAST - 09/13/22 11:36 EDT Findings: Complete consolidation of the left lung base with volume loss and associated leftward mediastinal shift. Unremarkable gallbladder and solid organs. No urolithiasis. No bowel obstruction, pneumoperitoneum, or pneumatosis. Sigmoid diverticulosis. Large rectal stool burden with mild rectal wall thickening. Pelvic contents unremarkable. Normal appendix. No acute fracture. IMPRESSION: Large rectal stool burden with mild rectal wall thickening concerning for stercoral colitis. Complete consolidation of the left lung base with volume loss and associated leftward mediastinal shift. Correlate with dedicated chest imaging. Sigmoid diverticulosis without evidence of acute diverticulitis. This document has been electronically signed by: Silvia Shin MD on 05/09/2025 17:35:37 Dictated By: Silvia Shin MD Signed By: <Electronically signed by Silvia Shin MD in OV> 05/09/251735 DD/ 34 TD/TT: 05/09/251734 Clay Digger: [facility] External Provider IMG CT PROCEDURES Final Result * MR Brain w/o Contrast (04/21/2025 10:07 AM EST) Anatomical Region Laterality Modality Brain Magnetic Resonan ce 04/21/2025 10:0 7 AM EST Narrative 04/21/2025 11:03 AM EST [place] [address] Magnetic Resonance Report Signed with Addenda Patient: Tammy Moeller MR#: [id number] : 1965 Acct:[id number] Age/Sex: 60 / F ADM Date: 04/20/25 Loc: [facility] 446-[address]: Ben NIELSEN Ordering Physician: Brittaney Lofton PA-C Date of Service: 04/21/25 Procedure(s): MR head/brain [facility] Accession Number(s): [id number] cc: Marjan Sams MD; Brittaney Lofton PA-C Reason for Exam: VARGAS ADDENDUM ADDENDUM #1 The retinal artery cannot be assessed properly on this examination. The CT angiogram brain [place] dated April 20, 2025 demonstrates normal patency of the ophthalmic arteries without vascular abnormality is at the origin. Electronically signed by: Ari Cavanaugh MD 04/22/2025 08:32 AM EST Addendum Dictated By: Ari Okeefe MD Addendum [...] by: Ari Cavanaugh MD 04/21/2025 11:00 AM [facility] Dictated By: Ari Jerez MD Signed By: <Electronically signed by Ari Okeefe MD in OV> 04/21/25 1100 DD/ 06 TD/TT: 04/21/251041 Clay Digger: Procedure Note Donotuseinterpreter, Image - 04/22/2025 [place] [address] Magnetic Resonance Report Signed with Addenda Patient: Tamym Moeller#: [id number] : 1965Acct:[id number] Age/Sex: 60 / FADM Date: 04/20/25 Loc: [facility] 446-[address]: Ben NIELSEN Ordering Physician: Brittaney Lofton PA-C Date of Service: 04/21/25 Procedure(s): MR head/brain wo con Accession Number(s): [id number] cc: Marjan Sams MD; Brittaney Lofton PA-C Reason for Exam: VARGAS ADDENDUM ADDENDUM #1 The retinal artery cannot be assessed properly on this examination. The CT angiogram brain [place] dated April 20, 2025 demonstrates [...] Ari Okeefe MDin OV> 04/21/25 1100 DD/ 06 TD/TT: 04/21/251041 Clay Digger: [facility] External Provider IMG MRI PROCEDURES Edited Result - Final * CTA Head Neck w/ and w/o Contrast (04/20/2025 9:20 PM EST) Anatomical Region Laterality Modality Head, Neck Computed Tomogra phy 04/20/2025 9:20 PM EST Narrative 04/20/2025 9:22 PM EST [address] [address] [address] Scan Report Signed Patient: Tammy Moeller MR#: [id number] : 1965 Acct:[id number] Age/Sex: 60 / F ADM Date: 04/20/25 Loc: HO.ED Attending Dr: Ordering Physician: Gorge Bhat Date of Service: 04/20/25 Procedure(s): CT angio head neck Accession Number(s): [id number] cc: Marjan Sams MD; Gorge Baht Report Number: [id number]: Total DLP = 0.00 mGy-cm Reason for Exam: right inferior nasal quadrantanopsia CLINICAL HISTORY: right inferior nasal quadrantanopsia CT head without contrast Comparison: None provided Findings: No acute intracranial fluid collection or hematoma. No acute process in sinuses or mastoids. No acute bony abnormality. Impression: No acute intracranial process CT angiogram head/[place] with contrast, Multiplanar reconstructions and 3D postprocessing Comparison: None provided Findings: Normal configuration of the [place] vessels. No acute filling defect [...] in OV> 04/20/252120 DD/ 19 TD/TT: 04/20/252119 Clay Digger: Procedure Note Donotuseinterpreter, Image - 04/20/[address] [place] [address] [address] Scan Report Signed Patient: Tammy Moeller#: [id number] : 1965Acct:[id number] Age/Sex: 60 / FADM Date: 04/20/25 Loc: .ED Attending Dr: Ordering Physician: Gorge Bhat Date of Service: 04/20/25 Procedure(s): CT angio head neck Accession Number(s): [id number] cc: Marjan Sams MD; Gorge Bhat Report Number: [id number]: Total DLP = 0.00 mGy-cm Reason for Exam: right inferior nasal quadrantanopsia CLINICAL HISTORY: right inferior nasal quadrantanopsia CT head without contrast Comparison: None provided Findings: No acute intracranial fluid collection or hematoma. No acute process in sinuses or mastoids. No acute bony abnormality. Impression: No acute intracranial process CT angiogram head/[place] with contrast, Multiplanar reconstructions and 3D postprocessing Comparison: None provided Findings: Normal configuration of the [place] vessels. No acute filling defect [...] in OV> 04/20/252120 DD/ 19 TD/TT: 04/20/252119 Clay Digger: [facility] External Provider IMG CT PROCEDURES Final Result * Partial Thromboplastin Time, Activated (APTT) (04/20/2025 8:05 PM EST) Partial Thromboplastin Time 29.2 26.7 - 34.1 SEC [facility] 04/20/2025 8:05 PM EST 04/20/2025 8:09 PM EST Narrative [facility] - 04/20/2025 8:21 PM EST hard stick Generic External Data Provider LAB BLOOD ORDERAB LES Final Result [facility] [address] [place] [address] [phone] * (ABNORMAL) Sed Rate by Modified Marilynren (04/20/2025 8:05 PM EST) Erythrocyte Sedimentation Rate 86(H) 0 - 20 MM/HR [facility] Comment:Patients with polycy themia and many hemoglobin abnormalitiesmay have depressed sed rates whereas patients with anemiamay have elevated sed rates. 04/20/2025 8:05 PM EST 04/20/2025 8:09 PM EST Generic External Data Provider LAB BLOOD ORDERAB LES Final Result [facility] [address], [place] [phone] * (ABNORMAL) Comprehensive Metabolic Panel (04/20/2025 4:22 PM EST) Sodium 135 135 - 145 mmol/L [facility] Potassium 4.0 3.3 - 5.1 mmol/L [facility] Chloride 107 96 - 108 mmol/L [facility] Carbon Dioxide 18(L) 22 - 29 mmol/L [facility] Anion Gap 14 12 - 20 [facility] Urea Nitrogen (BUN) 19(H) 9 - 16 mg/dL [facility] Creatinine, Serum 0.79 0.5 - 1.4 mg/dL [facility] Creatinine Clr Calc Pharmacy 60.6 [facility] Comment:Provided height and weight: 157.48 cm,58.967 kg.eGFR (calculated from the MDRD study equation) and eCrCl(calculated from the Cockcroft-Gault equation) are based ondifferent parameters and may not yield comparable results.If eCrCl result is absurd, please check patient'sheight/weight. Estimated Glomerular Filt Rate >60 [facility] Comment:Chronic Kidney Disea se: Estimated GFR < 60 mL/min/1.48x3Ormvev Kidney Disease: Estimated GFR < 15 mL/min/1.73m2 Glucose 66 60 - 115 mg/dL [facility] Calcium 9.6 8.4 - 10.2 mg/dL [facility] Bilirubin, Total 0.7 0.0 - 1.0 mg/dL [facility] Aspartate Amino Transferase 27 5 - 31 U/L [facility] Alanine Aminotransferase 11 0 - 31 U/L [facility] Total Protein 9.1(H) 6.5 - 8.0 g/dL [facility] Albumin Level 3.7 3.5 - 5.0 g/dL [facility] Alkaline Phosphatase 89 39 - 117 U/L [facility] 04/20/2025 4:22 PM EST 04/20/2025 4:25 PM EST us Generic External Data Provider LAB BLOOD ORDERAB LES Final Result [facility] [address] [place] [phone] * IR cvc insert tunnel w prt/program services planner (04/01/2025 12:59 PM EDT) Anatomical Region Laterality Modality X-Ray Angiograph y 04/01/2025 12:5 9 PM EDT Narrative 04/08/2025 7:37 AM EST [address] [address] Interventional Radiology Rpt Signed Patient: Tammy Moeller MR#: [id number] : 1965 Acct:[id number] Age/Sex: 59 / F ADM Date: 04/01/25 Loc: [facility] Attending Dr: Sonja Patel MD Ordering Physician: Sonja Patel MD Date of Service: 04/01/25 Procedure(s): IR cvc insert tunnel w prt/program services planner Accession Number(s): [id number] cc: Marjan Sams MD; Sonja Patel MD Reason for Exam: For chemotherapy CLINICAL HISTORY: Lung cancer . The patient presents to interventional radiology for placement of a port for chemotherapy. PROCEDURES: 1. Real-time ultrasound-guided access into the right internal jugular vein after documentation of selected vessel patency, and permanent image storing in the patient records. 2. Placement of a 6.6 Chadian single-lumen port. CLINICIAN: Johan Weiss NP MEDICATIONS: [...] site. Through the peel-away sheath, the 6.6 Chadian port catheter was placed. The catheter position [...] jugular vein 2. Placement of a 6.6 Chadian single lumen port. 3. Port flushes and aspirates very well with a 10 mL syringe. No pneumothorax. IR/IR cvc insert tunnel w prt/program services planner IMPRESSION: Placement of a 6.6 Chadian single-lumen port. PLAN: - The patient will be discharged home when stable by sedation protocol. - Port may be used immediately. This procedure was performed by Johan Weiss NP and directly supervised by Juan Antonio Blevins MD. Electronically signed by: Juan Antonio Blevins MD 04/08/2025 07:34 AM [facility] Workstation: [id number] Dictated By: Johan Weiss NP Signed By: <Electronically signed by Johan Weiss in OV> 04/08/25 0734 <Electronically signed by Juan Antonio Blevins MD in OV> 04/08/25 0736 DD/ 1259 TD/TT: 04/01/25 1660 Clay Digger: Procedure Note Surjit, Image - 04/08/2025 [place] [address] Interventional Radiology Rpt Signed Patient: Tammy Moeller#: [id number] : 1965Acct:[id number] Age/Sex: 59 / FADM Date: 04/01/25 Loc: [facility] Attending Dr: Sonja Patel MD Ordering Physician: Sonja Patel MD Date of Service: 04/01/25 Procedure(s): IR cvc insert tunnel w prt/program services planner Accession Number(s): [id number] cc: Marjan Sams MD; Sonja Patel MD Reason for Exam: For chemotherapy CLINICAL HISTORY: Lung cancer . The patient presents to interventional radiology for placement of a port for chemotherapy. PROCEDURES: 1. Real-time ultrasound-guided access into the right internal jugular vein after documentation of selected vessel patency, and permanent image storing in the patient records. 2. Placement of a 6.6 Chadian single-lumen port. CLINICIAN: Johan Weiss NP MEDICATIONS: [...] site. Through the peel-away sheath, the 6.6 Chadian port catheter was placed. The catheter position [...] jugular vein 2. Placement of a 6.6 Chadian single lumen port. 3. Port flushes and aspirates very well with a 10 mL syringe. No pneumothorax. IR/IR cvc insert tunnel w prt/program services planner IMPRESSION: Placement of a 6.6 Chadian single-lumen port. PLAN: - The patient will be discharged home when stable by sedation protocol. - Port may be used immediately. This procedure was performed by Johan Weiss NP and directly supervised by Juan Antonio Blevins MD. Electronically signed by: Juan Antonio Blevins MD 04/08/2025 07:34 AM [facility] Workstation: [id number] Dictated By: Johan Weiss NP Signed By: <Electronically signed by Johan Weiss in OV> 04/08/25 0734 <Electronically signed by Juan Antonio Blevins MD in OV> 04/08/25 0736 DD/ 1259 TD/TT: 04/01/25 9441 Clay Digger: us [facility] External Provider IMG IR PROCEDURES Final Result * Mr Brain w/ and w/o Contrast (03/06/2025 3:16 PM EDT) Anatomical Region Laterality Modality Brain Magnetic Resonan ce 03/06/2025 3:16 PM EDT Narrative 03/06/2025 4:24 PM EDT [address] [address] [address] Magnetic Resonance Report Signed Patient: Tammy Moeller MR#: [id number] : 1965 Acct:[id number] Age/Sex: 59 / F ADM Date: 03/06/25 Loc: HO.MRI Attending Dr: Sonja Patel MD Ordering Physician: Sonja Patel MD Date of Service: 03/06/25 Procedure(s): MR head/brain wo/w con Accession Number(s): [id number] cc: Marjan Sams MD; Sonja Patel MD [...] 03/06/25 1621 DD/ 1516 TD/TT: 03/06/25 1553 Clay Digger: Procedure Note Donotuseinterpreter, Image - 03/06/[address] [address] Magnetic Resonance Report Signed Patient: Tammy Moeller#: [id number] : 1965Acct:[id number] Age/Sex: 59 / FADM Date: 03/06/25 Loc: HO.MRI Attending Dr: Sonja Patel MD Ordering Physician: Sonja Patel MD Date of Service: 03/06/25 Procedure(s): MR head/brain wo/w con Accession Number(s): [id number] cc: Marjan Sams MD; Sonja Patel MD [...] 03/06/25 1621 DD/ 1516 TD/TT: 03/06/25 1553 Clay Digger: [facility] External Provider IMG MRI PROCEDURES Final Result * CTA Chest PE Protocal (03/05/2025 7:58 PM EDT) Anatomical Region Laterality Modality Body, Chest Computed Tomogra phy 03/05/2025 7:58 PM EDT Narrative 03/05/2025 8:00 PM EDT [place] [address] CT Scan Report Signed with Addenda Patient: Tammy Moeller MR#: [id number] : 1965 Acct:[id number] Age/Sex: 59 / F ADM Date: 03/05/25 Loc: HO.ED Attending Dr: Ordering Physician: Yariel Cuenca MD Date of Service: 03/05/25 Procedure(s): CT angio chest PE protocol Accession Number(s): [id number] cc: Marjan Sams MD; Yariel Cuenca MD Report Number: [id number]: Total DLP = 0.00 mGy-cm Reason for [...] in OV> 03/05/251958 DD/ 57 TD/TT: 03/05/251957 Clay Digger: Procedure Note Itzelter, Image - 03/05/[address] [place] [address] [address] Scan Report Signed with Addenda Patient: Tammy Moeller#: [id number] : 1965Acct:[id number] Age/Sex: 59 / FADM Date: 03/05/25 Loc: HO.ED Attending Dr: Ordering Physician: Yariel Cuenca MD Date of Service: 03/05/25 Procedure(s): CT angio chest PE protocol Accession Number(s): [id number] cc: Marjan Sams MD; Yariel Cuenca MD Report Number: [id number]: Total DLP = 0.00 mGy-cm Reason for [...] in OV> 03/05/251958 DD/ 57 TD/TT: 03/05/251957 Clay Digger: [facility] External Provider IMG CT PROCEDURES Edited Result - Final * BI Mammogram Diagnostic Tomosynthesis Bilateral (03/25/2024 2:00 PM EDT) Anatomical Region Laterality Modality Breast Bilateral Mammography 03/25/2024 2:00 PM EDT Narrative 03/25/2024 2:50 PM EDT [facility] [address] [place] [address] Mammography Report Signed Patient: Tammy Moeller MR#: [id number] : 1965 Acct:[id number] Age/Sex: 58 / F ADM Date: 03/25/24 Loc: HO.MAMMO Attending Dr: Marjan Sams MD Ordering Physician: Marjan Sams MD Results: 2B enign Findings Date of Service: 03/25/24 Follow Up: 1 Year From [facility] Mammogram Procedure(s): MM tomosynthesis diagnostic BI Accession Number(s): [id number] cc: Marjan Sams MD EXAMINATION: MM DIAGNOSTIC [...] 03/25/24 1447 DD/ 1400 TD/TT: 03/25/24 1422 Clay Digger: Procedure Note Donotuseinterpreter, Image - 03/25/2024 [facility] [address] [place] [address] Mammography Report Signed Patient: Tammy Moeller#: [id number] : 1965Acct:[id number] Age/Sex: 58 / FADM Date: 03/25/24 Loc: HO.MAMMO Attending Dr: Marjan Sams MD Ordering Physician: Marjan Sams MDResults: 2B enign Findings Date of Service: 03/25/24Follow Up: 1 Year From Orig inal Mammogram Procedure(s): MM tomosynthesis diagnostic BI Accession Number(s): [id number] cc: Marjan Sams MD EXAMINATION: MM DIAGNOSTIC [...] 03/25/24 1447 DD/ 1400 TD/TT: 03/25/24 1422 Clay Digger: us Marjan Sams MD IM BI PROCEDURES Final Re sult * HIV-1/2 Antigen and Antibodies, Fourth Generation, with Reflexes (02/13/2024 10:36 AM EDT) HIV AB/AG Nonreactive Nonreactive [facility] Comment:HIV-1 p24 Ag and/or HIV-1/HIV-2 Ab not detected.A test result that is nonreactive does not exclude thepossibility of exposure to or infection with HIV-1 and/orHIV-2. Nonreactive results in this assay for individualswith prior exposure to HIV-1 and/or HIV-2 may be due toantigen and antibody levels that are below the limit ofdetection of this assay.The [employer] HIV Ag/Ab Combo assay result andsupplemental assay results should be interpreted inconjunction with the patient's clinical presentation,history and other laboratory results. If the results areinconsistent with clinical evidence, additional testing issuggested to confirm the result. Blood Venous blood specimen / Unknown 02/13/2024 10:36 AM EDT 02/13/2024 11:19 AM EDT Marjan Sams MD LAB BLOOD ORDERABLES Final Result Performing Organization Address [facility] Co de Phone Number [facility] [address] [place] [phone] * (ABNORMAL) Lipid Panel, Standard (02/13/2024 10:36 AM EDT) Triglycerides 115 <150 mg/dL [facility] Comment:Desirable Triglyceri de: less than 150 mg/dLBorderline High Triglyceride 150-199 mg/dLHigh Triglyceride: 200-499 mg/dLVery High Triglyceride: greater than or equal to 5OO mg/dL Cholesterol 178 <200 mg/dL [facility] Comment:Desirable Cholestero l: less than 200 mg/dLBorderline High Cholesterol: 200-239 mg/dLHigh Cholesterol: greater than 239 mg/dL LDL Cholesterol Calculated 114(H) <100 mg/dL [facility] Comment:Desirable LDL: less than 100 mg/dLNear Optimal/Above Optimal LDL: 110- 129 mg/dLBorderline High LDL: 130-159 mg/dLHigh LDL: 160-189 mg/dLVery High LDL: greater than or equal to 190 mg/dL HDL Cholesterol 41 >40 mg/dL [facility] Comment:Desirable HDL: great er than 40 mg/dL Note: This HDL assay may give artificially low results in patients with liver disease. Blood Venous blood specimen / Unknown 02/13/2024 10:36 AM EDT 02/13/2024 11:19 AM EDT Marjan Sams MD LAB BLOOD ORDERABLES Final Result [facility] [address] [place] [address] [phone] * Thinprep PAP, HPV mRNA E6/E7 RFX HPV 16,18/45, Chlamydia/N. Gonorrhoeae (11/03/2022 12:00 AM EDT) Clinical Information: ROUTINE [facility] [place] [employer] LMP: NONE GIVEN [facility] [place] [employer] Prev. PAP: NONE GIVEN [employer] Prev. BX: NO [employer] SOURCE: None given [facility] Statement Of Adequacy: SATISFACTORY FOR EVALUATION [facility] Interpretation/Re sult: [facility] Comment: Negative for intraepithelial lesion or malignancy. Atrophic pattern; predominantly parabasal cells Salon Receptionist: [employer]N [employer] Comment: WXW, CT(ASCP) CT Screening Location: [place] [address] (Always Message) [facility] [employer] Comment: EXPLANATORY NOTE: The Pap is a [...] HPV nRNA E6/E7 Not Detected Not Detected [facility] Comment: Methodology: Clinical Pharmacist-Mediated Amplification This assay detects E6/E7 viral messenger RNA (mRNA) from 14 high-risk HPV types (16,18,31,33,35,39,45,51,52,56,58,59,66,68). Cervical sources are required for HPV testing. If a vaginal source from a patient who has had a total hysterectomy with removal of cervix was submitted, please contact the testing laboratory for alternative testing options. For additional information, please refer to http://education.[employer]faq/RKL034s6 (This link if provided for information/ educational purposes only.) Chlamydia trachomatis RNA, TMA, Urogenital NOT DETECTED NOT DETECTED [facility] Neisseria gonorrhoeae RNA, TMA, Urogenital NOT DETECTED NOT DETECTED [facility] [place] [employer] Comment [facility] [place] [facility] Comment: The analytical performance characteristics of this assay, when used to test SurePath(TM) specimens have been determined by [employer]. The modifications have not been cleared or approved by the FDA. This assay has been validated pursuant to the CLIA regulations and is used for clinical purposes. For additional information, please refer to https://[facility].[employer]faq/GBI242 (This link is being provided for information/ educational purposes only.) 11/03/2022 11/06/2022 9:1 5 PM EDT Narrative [facility] - 11/09/2022 10:33 AM EDT FASTING: UNKNOWN Marjan Sams MD LAB PATHOLOGY ORDERABLES F inal Result [employer] [address] [place] [address] [facility] [place] [facility] [address] [place] [address] * Hepatitis C Antibody with Reflex to HCV, RNA, Quantitative, Real-Time PCR (10/31/2022 8:11 AM EDT) Hepatitis C Antibody NON-REACT CHOCO NON-REACT CHOCO [employer] [facility] [place] [facility] Index 0.43 <1.00 [facility] [place] [facility] Comment: HCV antibody was non-reactive. There is no laboratory evidence of HCV infection. In most cases, no further action is required. However, if recent HCV exposure is suspected, a test for HCV RNA (test code 97836) is suggested. For additional information please refer to http://[facility].[employer]faq/SHF45d4 (This link is being provided for informational/ educational purposes only.) Blood Venous blood specimen / Unknown 10/31/2022 8:11 AM EDT 10/31/2022 8:11 AM EDT Narrative [facility] - 10/31/2022 9:53 PM EDT FASTING:YES FASTING: YES Marjan Sams MD LAB BLOOD ORDERABLES Final Result [facility] [address] [facility], [facility], [place] [address] [facility] [address] [place] [address] * Hm Colonoscopy (03/30/2017 12:40 PM EDT) Historical Provider HEALTH MAINTENANCE Final Result from Last 3 Months or Most Recently Relevant to Health Maintenance Insurance MEDICARE Member Subscriber Plan / Payer (Ef fective 2025-Present) Name:Tammy Moeller Member ID:[id number] Relation to Subscriber:Self Name:Tammy Moeller Subscriber ID:[id number] Payer ID:STATE Group ID:Not on file Type:Medicare Address: [facility] [address] [place] [address] [facility] Advance Directives Documents on File Type Date Recorded Patient Assembler [employer] Springs Expl anation Advance Directives and Living Will 10/01/2024 12:27 PM HEALTH CARE PROXY Care Teams Analysis Director Relationship Specialty Start Date End Date [place], MD Marjan [address] [place] [address] PCP - General Family Medicine 06/04/18 Esteban Nice MD [address] [place] [address] Rheumatology 05/21/24 Ashley Chanel OD 180 [place] [address] Optometry 05/21/24 Alban Koehler 175 [facility] 110 [place] [address] Podiatry 10/08/24 Sonja Patel MD [address] [place] [address] Hematology and Oncology 02/26/25 Jack Lyles 299 [place] 410 [place] [address] Thoracic Surgery 02/26/25 Dea Hewitt MD Rheumatology 10/06/24
--- OUTSIDE RECORDS SUMMARY | 2025-05-27 11:03 | XMS_ITS | Encounter Summary ---
Author Organization [employer] Address 75 [facility] 7t [place] [address] Care Team Providers Care Oil And Gas Superintendent Name Role Phone Marjan Sams MD Primary Care Provider [phone] Esteban Nice MD Unavailable Ashley Chanel OD Unavailable [phone] Alban Koehler Unavailable Sonja Patel MD Unavailable [phone] Jack Lyles Unavailable Reason for Visit * Reason Comments Med Refill Encounter Details Date Type Department Care Team (Late st Contact Info) Description 12/19/2024 Refill [facility] [address] [place] [address] Marjan Sams MD 230 [place] [address] History of DVT (deep vein thrombosis) Social [...] Info) Description 05/27/2025 11:45 AM EST Telemedicine [facility] MED[facility] [address] [place] [address] Marjan Sams MD 230 [place] [address] documented as of this encounter Visit Diagnoses Diagnosis History of DVT (deep vein thrombosis) documented in this encounter Additional Health Concerns Assessment Noted Time PHQ-9 Depression Total Score: 4 02/13/20 24 9:45 AM EDT documented as of this encounter Care Teams Oil And Gas Superintendent Relationship Specialty Start Date End Date Arden Samsie, MD 230 [place] [address] PCP - General Family Medicine 06/04/18 Esteban Nice MD [address] [place] [address] Rheumatology 05/21/24 Ashley Chanel OD 180 [place] [address] Optometry 05/21/24 Alban Koehler 175 [facility] 110 [place] [address] Podiatry 10/08/24 Sonja Patel MD [address] [place] [address] Hematology and Oncology 02/26/25 Jack Lyles 299 [facility] 410 [place] 110[address] Thoracic Surgery 02/26/25 Dea Hewitt MD Rheumatology 10/06/24 documented as of this encounter
--- OUTSIDE RECORDS SUMMARY | 2025-05-27 11:03 | XMS_ITS | Encounter Summary ---
Author Organization [employer] Address 75 [facility] 7t [place] [address] Care Team Providers Care Welder Apprentice Combination Name Role Phone Marjan Sams MD Primary Care Provider [phone] Esteban Nice MD Unavailable Ashley Chanel OD Unavailable [phone] Alban Koehler Unavailable Sonja Patel MD Unavailable [phone] Jack Lyles Unavailable Reason for Visit * Reason Onset Date Comments Med Refill 08/20/2024 Encounter Details Date Type Department Care Team (Late st Contact Info) Description 08/20/2024 Telephone [facility] MED[facility] [address] [place] [phone] Marjan Sams MD 230 [place], [place] [phone] Med Refill Social History Tobacco Use Types [...] 5-325 MG tablet To be sent to: [facility]acy #[id number] [place], [place] - [address] [place] [address] documented in this encounter Plan of Treatment Upcoming Encounters Date Type Department Care Team (Late st Contact Info) Description 05/27/2025 11:45 AM EST Telemedicine [facility] 230 [place] [address] Marjan Sams MD 230 [place], [place] [phone] documented as of this encounter Visit Diagnoses Not on filedocumented in this encounter Additional Health Concerns Assessment Noted Time PHQ-9 Depression Total Score: 4 02/13/20 24 9:45 AM EDT documented as of this encounter Care Teams Welder Apprentice Combination Relationship Specialty Start Date End Date Marjan Sams MD 230 [place] [address] PCP - General Family Medicine 06/04/18 Esteban Nice MD [address] 402 [place] [address] Rheumatology 05/21/24 Ashley Chanel OD 180 [place] [address] Optometry 05/21/24 Alban Koehler 175 [facility] 110 [place] [address] Podiatry 10/08/24 Sonja Patel MD [address] [place] [address] Hematology and Oncology 02/26/25 Jack Lyles 299 [facility] 410 [place], [place] 110[address] Thoracic Surgery 02/26/25 Dea Hewitt MD Rheumatology 10/06/24 documented as of this encounter
--- OUTSIDE RECORDS SUMMARY | 2025-05-27 11:03 | XMS_ITS | Encounter Summary ---
Author Organization [employer] Address 75 [facility] 7t [place] [address] Care Team Providers Care Interface Analyst Name Role Phone Marjan Sams MD Primary Care Provider [phone] Esteban Nice MD Unavailable Ashley Chanel OD Unavailable [phone] Alban Koehler Unavailable Sonja Patel MD Unavailable [phone] Jack Lyles Unavailable Reason for Visit * Reason Onset Date Comments Med Refill 10/20/2024 Encounter Details Date Type Department Care Team (Late st Contact Info) Description 10/20/[address] [facility]S 505 [place], [place] [phone] Marjan Sams MD [address] [place] [address] Arthritis of both knees Social History Tobacco [...] Info) Description 05/27/2025 11:45 AM EST Telemedicine [facility] MEDICINE 230 [place] [address] Marjan Sams MD 230 [place] [address] documented as of this encounter Visit Diagnoses Diagnosis Arthritis of both knees documented in this encounter Additional Health Concerns Assessment Noted Time PHQ-9 Depression Total Score: 4 02/13/20 24 9:45 AM EDT documented as of this encounter Care Teams Interface Analyst Relationship Specialty Start Date End Date Latrell, Marjan, MD 230 [place] [address] PCP - General Family Medicine 06/04/18 Esteban Nice MD [address] 402 [place] [address] Rheumatology 05/21/24 Ashley Chanel OD 180 [place] [address] Optometry 05/21/24 Alban Koehler 175 [facility] 110 [place] [address] Podiatry 10/08/24 Sonja Patel MD [address] [place] [address] Hematology and Oncology 02/26/25 Jack Lyles 299 [facility] 410 [place], [place] 110 Thoracic Surgery 02/26/25 Dea Hewitt MD Rheumatology 10/06/24 documented as of this encounter
[2025-05-27 11:17] LABS: Resp Syncy Virus RNA Qual PCR NEGATIVE (Negative); SARS COV2 PCR INHOUSE NEGATIVE (Negative)
[2025-05-27] MEDS: iohexoL 350 MG/ML 100 ML INFUS..BTL IV (11:34)
[2025-05-27 11:36] LABS: OBS1 NEGATIVE (NEGATIVE)
[2025-05-27 11:37] LABS: OBS Int Ctl Valid YES; OBS Lot 0224
[2025-05-27 14:07] LABS: Troponin-I High Sensitivity 113.5 ng/L (<3.5-17.0)
--- NOTE | 2025-05-27 14:48 | P.HPHOSP_ITS ---
History of Present Illness Date of Service: 05/27/25 Chief Complaint: Shortness of breath 60-year-old female with known history of squamous cell carcinoma of the lung on chemotherapy last session 1223 presents with worsening shortness of breath that started approximately 0 400 today. This is in the backdrop of COPD, SLE, DVT, and ongoing tobacco dependence. She was found by EMS to have a respiratory rate between 30 and 34 and a sat of 82% on room air. She was given supplemental oxygen and ultimately needed 15 L non-rebreather. In the ER, patient had CT scan of the lung showed total collapse of the left lung which is a progression of her known squamous cell carcinoma. Long discussion with daughter Maria Eugenia; given of the gravity of the situation and the way her mother is struggling to breathe she is in agreement that it should be comfort measures at this time. She will be admitted for same Review of Systems 2 Review of Systems: Unable to obtain [facility] Medical History History of DVT (deep vein thrombosis) (~2014) Systemic lupus erythematosus (~2006) Long-term use of hydroxychloroquine Osteopenia (~2024) COPD (chronic obstructive pulmonary disease) Asthma Obstructive sleep apnea Nicotine dependence, cigarettes, uncomplicated Hyperplastic colon polyp Family History Mother Breast cancer Sister Breast cancer Surgical History History of colonoscopy Social History Household Members: Significant Other Housing: House Do you presently have visiting nurse or other home services: No Alcohol intake: current Alcohol intake frequency: does not drink Alcohol type: hard liquor Patient Tobacco Use Status: Former Tobacco user Tobacco use type: Cigarette Cigarette Packs Per Day: 1 Years Smoked: (onset 15yo, 1/2ppd x 44yrs, 22pyh) Smoked in Last 30 Days: No Second Hand Smoke Exposure: No Use of substances other than those prescribed or required for medical reasons: No Advance Directives: Yes Advance Directives on File: Yes Advance Directives Date on File: 03/11/25 Do you have a plan to hurt others: No Plan Nutrition Risks: Poor intake 0-25% >4 days Patient : No service: No Current occupational status: disabled Meds Allergies Allergy/AdvReac Type Severity Reaction Status Date / Time paclitaxel Allergy Severe Shortness Verified 05/27/25 09:48 of Breath Active Medications: Current Medications Ondansetron HCl (Ondansetron Hcl 4 Mg/2 Ml Vial) 4 mg IVPUSH Q8H PRN PRN Reason: Nausea and Vomiting Sodium Chloride (0.9 % Sodium Chloride Flush 3 Ml Syringe) 3 ml IVFLUSH QSHIFT [facility] Home Medications ?Medication ?Instructions ?Recorded ?Confirmed ?Last Taken ?Type aspirin 81 mg tablet,delayed 81 mg PO DAILY 03/19/20 1 07/11/24 04/20/25 History release (Adult Low Dose Aspirin) levalbuterol HCl 1.25 mg/3 mL 1.25 mg inhalation Q4H P RN 09/13/22 05/10/25 02/16/25 History solution for nebulization Respiratory Distress hydroxychloroquine 200 mg tablet 400 mg PO DAILY 04/2005/10/25 04/20/25 History sennosides 8.6 mg-docusate sodium 1 tab-cap PO BID 05/10/25 04/20/25 History 50 mg tablet (Senna with Docusate Sodium) fluticasone fur. 200 mcg-umeclid 1 inh inhalation NED Y 05/10/25 05/10/25 Unknown History 62.5 mcg-vilant 25 mcg inhalat.powder (Trelegy Ellipta) Physical Exam 2 Vital Signs and Narrative: Vital Signs: Last Vital Signs Temp 98.5 F 05/27/25 11:34 Pulse 130 H 05/27/25 13:34 Resp 31 H 05/27/25 13:34 BP 128/77 05/27/25 13:34 Pulse Ox 96 05/27/25 13:34 O2 Del Method Nasal Cannula 05/27/25 13:34 O2 Flow Rate 2 05/27/25 13:34 Oxygen Flow Rate 15 05/27/25 09:46 BMI result Body Mass Index 20.2 Const: Other: Lying quietly in bed struggling to breathe. We will open eyes to verbal stimuli Chest: Other: Accessed Port-A-Cath right chest Resp: Other: Scattered wheezes throughout upper lobes; minimal aeration left base Cardio: Other: Tachy; positive S1-S2 GI: Other: Soft nontender nondistended normoactive bowel sounds Extrem: Other: No edema bilaterally Results Labs 05/27/25 10:16 05/27/25 10:16 Labs: Laboratory Results - last 24 hr 05/27/25 05/27/25 05/27/25 10:15 10:16 10:23 MCV 82.5 MCH 26.7 L MCHC 32.3 RDW 18.9 H Plt Count 158 L MPV 11.2 Immature Gran % (Auto) 1.3 H Neut % (Auto) 80.3 H Lymph % (Auto) 13.0 L [place] % (Auto) 4.6 Eos % (Auto) 0.0 Baso % (Auto) 0.8 Lymph # (Auto) 0.3 L [place] # (Auto) 0.1 Eos # (Auto) 0.0 Baso # (Auto) 0.0 Abs Immat Gran (auto) 0.03 Absolute Neuts (auto) 1.9 L Absolute Nucleated RBC 0.020 H Nucleated RBC % (auto) 0.8 H Hold Purple Top SEE NOTE PT 15.1 H INR 1.2 H VBG pH 7.36 VBG pCO2 30 VBG pO2 60 VBG HCO3 17 L VBG O2 Saturation 83.0 VBG Base Excess -6.5 Anion Gap 15 Estim Creat Clear Calc 63.2 Estimated GFR > 60 Random Glucose 106 Lactic Acid 1.7 Calcium 8.9 Total Bilirubin 1.4 H Direct Bilirubin 0.6 H AST 22 ALT 20 Alkaline Phosphatase 119 H Troponin I High Sens 58.5 H* D Total Protein 7.6 Albumin 3.5 Lipase 8 Stool Occult Blood Influenza Type A (PCR) NEGATIVE Influenza Type B (PCR) NEGATIVE RSV RNA Qual (PCR) NEGATIVE SARS-CoV-2 RNA (RT-PCR) NEGATIVE Blood Type Antibody Screen 05/27/25 05/27/25 11:20 13:32 MCV MCH MCHC RDW Plt Count MPV Immature Gran % (Auto) Neut % (Auto) Lymph % (Auto) [place] % (Auto) Eos % (Auto) Baso % (Auto) Lymph # (Auto) [place] # (Auto) Eos # (Auto) Baso # (Auto) Abs Immat Gran (auto) Absolute Neuts (auto) Absolute Nucleated RBC Nucleated RBC % (auto) Hold Purple Top PT INR VBG pH VBG pCO2 VBG pO2 VBG HCO3 VBG O2 Saturation VBG Base Excess Anion Gap Estim Creat Clear Calc Estimated GFR Random Glucose Lactic Acid Calcium Total Bilirubin Direct Bilirubin AST ALT Alkaline Phosphatase Troponin I High Sens 113.5 H* D Total Protein Albumin Lipase Stool Occult Blood NEGATIVE Influenza Type A (PCR) Influenza Type B (PCR) RSV RNA Qual (PCR) SARS-CoV-2 RNA (RT-PCR) Blood Type A Positive Antibody Screen NEGATIVE Imaging Radiologist's Impressions: Impressions Chest X-Ray 05/27/25 10:33 IMPRESSION: 1. Interval improvement of the aeration of the left upper lobe 2. Persistent atelectasis of the left lower lobe. Electronically signed by: Ky Leija MD 05/27/2025 10:57 AM EST RP Chest CTA 05/27/25 11:18 IMPRESSION: 1. No evidence of pulmonary emboli. 2. Occlusion of the left mainstem bronchus with near complete atelectasis of the left lower lobe. Spiculated soft tissue mass extending from the left hilum to the pleural surface, compatible with neoplasm. 3. Cardiomegaly and pulmonary arterial hypertension. 4. 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 Electronically signed by: Alek Camejo MD 05/27/2025 11:57 AM EST RP Assessment and Plan (1) Squamous cell carcinoma of left lung: Status: Acute Plan 60-year-old female with known history of squamous cell carcinoma presents via ambulance in his stream respiratory distress/acute hypoxic respiratory failure. Respiratory rate in the 30s; heart rate 120s. Discussed with proxy (daughter Maria Eugenia).. Patient will be made BLOOD BANK TECHNICIAN and a morphine drip will be started 1. End-stage squamous cell carcinoma of the lung -BLOOD BANK TECHNICIAN; proxy at bedside (daughter) -morphine drip as per protocol. . . Titrate as indicated -Valium 5 mg IV q.2 hours p.r.n. anxiety or restlessness -scopolamine patch q.72 hours Quality Stroke Does the patient have a stroke diagnosis?: No VTE Prior VTE?: No VTE Risk Level:: Medical - moderate - high VTE Device Contraindication: Treatment Not Indicated VTE Drug Contraindication: N/A - Med Ordered
[2025-05-27] MEDS: diazePAM 10 MG/2 ML CARTRIDGE 5 MG IVPUSH ×2 (15:37→18:51)
[2025-05-27] MEDS: Morphine Sulfate/NS 100 MG/100 ML PLAST..BAG IVCONT (15:57)
--- NOTE | 2025-05-27 17:32 | HO.NURTONUR ---
60 y/o F, A/x3, MARKETING TRAFFIC COORDINATOR Hx: Lung CA, COPD, Asthma BIBA from home for increased sob since approx 0400am. Pt was using her nebulizers at home with no relief. EMS had her 88% on 4L. Upon arrival to ED, RR >30, sinus tach 130s-40s. Lungs diminished bilaterally throughout with wheezing. Labs: Hgb 7.6, Trop 58.5 --> 113.5, K 3.2, Stool Occult negative Reports: CXR- Left lower lobe atelectasis, Chest CTA- Occlusion L main bronchus and left lower lobe atelectasis. Port accessed- Morphine drip running @3mg/hr. Titrated related to increased WOB RR >30. 4L Oxymask- maintaining O2 sats >92%. Currently MARKETING TRAFFIC COORDINATOR
--- NOTE | 2025-05-27 18:45 | PC.NURSE ---
18:35 - patient arrived to unit from ER via stretcher. Patient awake, alert, oriented and conversing. Patient arrived to unit with Morphine infusing, morphine drip placed in lock box with IV pump locked. Morphine drip increased on arrival for increased RR and PRN medication administered for patient request for anxiety. Patient arrived on 3L oxymask, placed on nasal cannula per patient's request for comfort. Mouth care provided. Patient and family educated to utilize call mondragon and verbalized understanding, bed alarm on.
[2025-05-28 07:46] VITALS: PULSE 122; RESP 22
[2025-05-28] MEDS: diazePAM 10 MG/2 ML CARTRIDGE 5 MG IVPUSH ×2 (07:46→09:26)
[2025-05-28 09:13] VITALS: PULSE 125; RESP 24
[2025-05-28] MEDS: Morphine Sulfate/NS 100 MG/100 ML PLAST..BAG 6 MG IVCONT (11:22)
[2025-05-28] MEDS: diazePAM 10 MG/2 ML CARTRIDGE IVPUSH ×6 (12:07→23:12)
--- NOTE | 2025-05-28 12:33 | HO.PM.IMPN ---
Subjective Subjective Date of Service: 05/28/25 Interval History: Appears comfortable. Family at bedside Review of Systems Unable to obtain Physical Exam Vital Signs: Vital Signs: Last Vital Signs Temp 98.5 F 05/27/25 11:34 Pulse 125 H 05/28/25 09:13 Resp 24 H 05/28/25 09:13 BP 128/77 05/27/25 13:34 Pulse Ox 93 05/27/25 17:36 O2 Del Method Nasal Cannula 05/27/25 13:34 O2 Flow Rate 2 05/27/25 13:34 Oxygen Flow Rate 15 05/27/25 09:46 BMI result Body Mass Index 20.2 Const: Other: Lying quietly in bed struggling to breathe. We will open eyes to verbal stimuli Chest: Other: Accessed Port-A-Cath right chest Resp: Other: Scattered wheezes throughout upper lobes; minimal aeration left base Cardio: Other: Tachy; positive S1-S2 GI: Other: Soft nontender nondistended normoactive bowel sounds Extrem: Other: No edema bilaterally Objective Data Active Medications Diazepam (Diazepam 10 Mg/2 Ml Cartridge) 5 mg IVPUSH Q2H PRN PRN Reason: anxiety/restlessness Last Admin: 05/28/25 07:46 Dose: 5 mg Documented By: YULIA Diazepam (Diazepam 10 Mg/2 Ml Cartridge) 10 mg IVPUSH Q2H PRN PRN Reason: anxiety/restlessness Last Admin: 05/28/25 12:07 Dose: 10 mg Documented By: YULIA Morphine Sulfate (Morphine Sulfate/Ns) 100 mg in 100 mls @ 0 mls/hr IVCONT .Q0M [facility]; Protocol Last Admin: 05/28/25 11:22 Dose: 6 mg/hr, 6 mls/hr Documented By: YULIA Ondansetron HCl (Ondansetron Hcl 4 Mg/2 Ml Vial) 4 mg IVPUSH Q8H PRN PRN Reason: Nausea and Vomiting Sodium Chloride (0.9 % Sodium Chloride Flush 3 Ml Syringe) [address] [facility] Last Admin: 05/28/25 09:03 Dose: Not Given Documented By: YULIA Non-Admin Reason: IV Running Labs 05/27/25 10:16 05/27/25 10:16 Labs: Laboratory Results - last 24 hr 05/27/25 13:32 Troponin I High Sens 113.5 H* D Blood Type A Positive Antibody Screen NEGATIVE Crossmatch (AHG) See Detail Microbiology Microbiology Results: Microbiology 05/27/25 10:16 Blood Culture - Preliminary Blood - Venous No growth after 24 hours. 05/27/25 10:16 Blood Culture - Preliminary Blood - Venous No growth after 24 hours. Assessment and Plan (1) Lung consolidation: Status: Acute Plan 60-year-old female with known history of squamous cell carcinoma presents via ambulance in his stream respiratory distress/acute hypoxic respiratory failure. Respiratory rate in the 30s; heart rate 120s. Discussed with proxy (daughter Maria Eugenia).. Patient will be made JAILER and a morphine drip will be started 1. 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 . . Currently at 6 milligrams/hour. Titrate as indicated -Valium 5 mg IV q.2 hours p.r.n. anxiety or restlessness -scopolamine patch q.72 hours Quality Stroke Does the patient have a stroke diagnosis?: No VTE Prior VTE?: No VTE Risk Level:: Medical - moderate - high VTE Device Contraindication: Treatment Not Indicated VTE Drug Contraindication: N/A - Med Ordered
--- NOTE | 2025-05-28 14:18 | MHC.CM.PN ---
IMM DELIVERED. PT IS CURRENTLY BUSINESS TECHNOLOGY ARCHITECT STATUS AND MINIMALLY RESPONSIVE. HCP/DAUGHTER OBDULIO ([phone]). CM WILL CONTINUE TO FOLLOW FOR ANY CHANGE TO PLAN.
[2025-05-28] MEDS: 0.9 % Sodium Chloride Flush 3 ML SYRINGE IVFLUSH (17:20)
[2025-05-29] MEDS: diazePAM 10 MG/2 ML CARTRIDGE IVPUSH ×2 (01:21→05:07)
[2025-05-29] MEDS: Morphine Sulfate/NS 100 MG/100 ML PLAST..BAG 7 MG IVCONT (02:14)
--- NOTE | 2025-05-29 09:11 | PM.DDS ---
Discharge Sum: Prov Provider Primary care physician: Marjan Sams MD Discharge Sum: Diag Contributing Factors (1) Squamous cell carcinoma of left lung: Discharge Sum: Summary Date and Time Date of admission: 05/27/25 14:08 Date of : 05/29/25 Time of : 06:46 Summary Details: 60-year-old female with known history of squamous cell carcinoma of the lung on chemotherapy last session 1223 presents with worsening shortness of breath that started approximately 0 400 today. This is in the backdrop of COPD, SLE, DVT, and ongoing tobacco dependence. She was found by EMS to have a respiratory rate between 30 and 34 and a sat of 82% on room air. She was given supplemental oxygen and ultimately needed 15 L non-rebreather. In the ER, patient had CT scan of the lung showed total collapse of the left lung which is a progression of her known squamous cell carcinoma. Long discussion with daughter Maria Eugenia; given of the gravity of the situation and the way her mother is struggling to breathe she is in agreement that it should be comfort measures at this time. Hospital Course Admitted to general medical floor and placed on a morphine drip for comfort. Received pulse dose Valium intermittently for agitation. On 05/29/2025 0646 patient peacefully with family at bedside Additional Data Attending physician: Neville Ho DO
--- NOTE | 2025-05-29 10:56 | PC.NURSE ---
This nurse was getting report from off-going night nurse, when son of patient in room 361 came out of the room and stated to me that he didn't think that his mother was breathing. 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 This nurse went into room with off-going nurse and assessed patient. No spontaneous respirations. No apical pulse. Provider notified and came to room to pronounce. Spoke with Nela at [facility] and pt was accepted. reference number [id number]. Family still in room with pt.
== END 2025-05-29 13:30 | disposition expired | DRG 951 ==
LOC: HO.ED 13:59 → HO.EDOVER 14:09 → HO.S3 17:28
PROVIDERS: Admitting Provider Hospitalist; Emergency Provider Emergency Medicine; PCP Family Medicine; Visit Provider Hospitalist
DX: Z51.5 Encounter for palliative care (principal); C34.92 Malignant neoplasm of unspecified part of left bronchus or lung; J44.1 Chronic obstructive pulmonary disease with (acute) exacerbation; J98.19 Other pulmonary collapse; M32.9 Systemic lupus erythematosus, unspecified; F17.210 Nicotine dependence, cigarettes, uncomplicated; Z20.822 Contact with and (suspected) exposure to COVID-19; Z79.82 Long term (current) use of aspirin; Z79.899 Other long term (current) drug therapy
CPT/HCPCS: 36415; 71045; 71275; 80048; 80076; 82272; 82803; 83605; 83690; 84484; 85025; 85610; 86850; 86900; 86901; 86920; 86922; 87040; 87637; 93005; 94640; 99285; J1271; J2270; J2919; J3360; J3475; Q9967

== ENCOUNTER → 2025-05-27 09:50 | Outpatient (BNV) | payer MEDICARE, MEDICAID, SELFPAY | PROVIDERS: Emergency Provider Emergency Medicine; PCP Family Medicine; Visit Provider Radiology Body Imaging | DX: J98.11 Atelectasis (principal); I51.7 Cardiomegaly; R06.02 Shortness of breath | CPT/HCPCS: 71045; 71275 ==

== ENCOUNTER → 2025-05-27 09:50 | Outpatient (BNV) | payer MEDICARE, MEDICAID, SELFPAY | PROVIDERS: Emergency Provider Emergency Medicine; PCP Family Medicine; Visit Provider Internal Medicine Cardiovascular Disease | DX: R00.0 Tachycardia, unspecified (principal) | CPT/HCPCS: 93010 ==

== ENCOUNTER → 2025-05-27 14:08 | Outpatient (BNV) | payer MEDICARE, MEDICAID, SELFPAY | PROVIDERS: Admitting Provider Hospitalist; Emergency Provider Emergency Medicine; PCP Family Medicine; Visit Provider Hospitalist | DX: C34.92 Malignant neoplasm of unspecified part of left bronchus or lung (principal) | CPT/HCPCS: 99223; 99233; 99238 ==